=== PATIENT | female | born 1960 | race African-American/Black ===

== ENCOUNTER 2017-04-24 22:49 | Observation (INO) | payer MEDICARE ==
[~2017-04-24] VITALS: Ht 165.1 cm; Wt 100.0 kg
[~2017-04-24 22:49] MED LIST: ASPI-147 PO; BUPR150XL PO; CARV6.252 PO; CETI10 PO; DEPA500T3 PO; DICL75TA PO; DIOV160T6 PO; FLUT50SP EACH NARE; FURO1TAB62 PO; GABA100C4 PO; GLIP5 PO; LANTUS2P SQ; METF1000 PO; VENTAER INH; ZOCO40TA PO; [UNRECOGNIZED DRUG - CODE]
[2017-04-24 22:59] VITALS: BP 201/99; PULSE 106; RESP 20; O2SAT 100; O2SAT 98
[2017-04-24] MEDS ORDERED: SODIUM CHLORIDE 0.9% FLUSH 10 ML FLUSH IVF PRN (23:00)
[2017-04-24] MEDS ORDERED: RESP: ALBUTEROL 2.5 MG/IPRATROPIUM 0.5 MG NEB (SCH) NEB ONE (23:00)
--- NOTE | 2017-04-24 23:06 | PD ---
HPI Chief Complaint: dyspnea Time Seen by Provider: 22:59 Travel History International Travel<30 days: No Contact w/Intl Traveler<30days: No Traveled to known affect area: No History of Present Illness HPI 56-year-old female presents to the emergency department by EMS transport for evaluation of respiratory worsening shortness of breath and diaphoresis. Patient with history of COPD and CHF. No report of fever or chills. Patient has had congested cough. Patient symptomatically improved after updraft treatment and CPAP applied by EMS en route. Patient continues to complain of some shortness of breath. Patient states has sharp chest pain only with cough otherwise no chest pain and no chest discomfort. No abdominal pain. PFSH Past Medical History Narrative Medical Bipolar disorder anxiety depression dyslipidemia COPD diabetes CHF hypertension schizophrenia cholecystectomy no tobacco use no alcohol use nursing notes reviewed Asthma: No Blood Disorders: No Bipolar Disorder: Yes Anxiety: Yes Depression: Yes Heart Rhythm Problems: No Cancer: No Cardiovascular Problems: No High Cholesterol: Yes Chemotherapy: No Chest Pain: No Congestive Heart Failure: No COPD: Yes Diabetes: Yes Diminished Hearing: No Endocrine: Yes GERD: Yes Genitourinary: No Hypertension: Yes Immune Disorder: No Musculoskeletal: Yes (BILATERAL KNEES ACHE) Neurologic: No Psychiatric: Yes (SCHIZOPHRENIA) Reproductive: No Respiratory: Yes Immunizations Current: No Radiation Therapy: No Schizophrenia: Yes Sleep Apnea: No Thyroid Disease: No Menopausal: Yes Tubal Ligation: Yes Past Surgical History Abdominal Surgery: Yes Cholecystectomy: Yes Gynecologic Surgery: Yes (tubal ligation ) Social History Alcohol Use: No Tobacco Use: No (QUIT 5 DAYS AGO) Substance Use: No Allergies-Medications (Allergen,Severity, Reaction): Coded Allergies: No Known Allergies (Verified , 04/24/17) Reported Meds & Prescriptions Reported Meds & Active Scripts Active Cetirizine (Cetirizine HCl) 10 Mg Tab 10 Mg PO DAILY Carvedilol 6.25 Mg Tab 6.25 Mg PO BID Lasix (Furosemide) 20 Mg Tab 20 Mg PO DAILY Diclofenac Sodium DR (Diclofenac Sodium) 75 Mg Tabdr 75 Mg PO BID Glucotrol (Glipizide) 5 Mg Tab 5 Mg PO BIDAC Take 30 minutes before a meal Gabapentin 100 Mg Cap 100 Mg PO HS Ecotrin Low Strength (Aspirin) 81 Mg Tabdr 81 Mg PO DAILY Zocor (Simvastatin) 40 Mg Tab 40 Mg PO DAILY Diovan (Valsartan) 160 Mg Tab 160 Mg PO DAILY Metformin (Metformin HCl) 1,000 Mg Tab 1,000 Mg PO BIDPC With meals Ventolin Hfa 18 GM Inh (Albuterol Sulfate) 90 Mcg/Act Aer 2 Puff INH Q4H PRN Reported Wellbutrin Xl 24 HR (Bupropion HCl) Unknown Strength Tab Unknown Dose PO DAILY Depakote ER (Divalproex Sodium) 500 Mg Heather 500 Mg PO DAILY Fluticasone Nasal Amonate 50 Mcg/Act Naspr 50 Mcg EACH NARE BID 50 mcg/spray Review of Systems Except as stated in HPI: all other systems reviewed are Neg General / Constitutional: No: Fever, Chills HENT: No: Congestion Cardiovascular: No: Chest Pain or Discomfort Respiratory: Positive: Cough (with cough), Shortness of Breath, Wheezing, No: Pleuritic Pain Gastrointestinal: No: Nausea, Vomiting, Abdominal Pain Musculoskeletal: No: Myalgias, Arthralgias Skin: No Rash Neurologic: No: Weakness Psychiatric: No: Anxiety Hematologic/Lymphatic: No: Easy Bruising Physical Exam Narrative GENERAL: Well-developed obese female diaphoretic with BiPAP in place with residual respiratory distress. SKIN: Warm and mildly diaphoretic. HEAD: Normocephalic. EYES: No scleral icterus. No injection or drainage. NECK: Supple, trachea midline. No JVD or lymphadenopathy. CARDIOVASCULAR: Regular rate and rhythm without murmurs, gallops, or rubs. RESPIRATORY: Breath sounds equal bilaterally clear to auscultation. No accessory muscle use. GASTROINTESTINAL: Abdomen soft, non-tender, nondistended. MUSCULOSKELETAL: No cyanosis, or edema. BACK: Nontender without obvious deformity. No CVA tenderness. Data Data Last Documented VS Vital Signs Date Time Temp Pulse Resp B/P (MAP) Pulse Ox O2 Delivery O2 Flow Rate FiO2 04/25/17 02:00 91 18 173/87 (115) 98 Nasal Cannula 2.00 04/25/17 01:00 50 Orders Orders Complete Blood Count With Diff (04/24/17 22:59) Comprehensive Metabolic Panel (04/24/17 22:59) B-Type Natriuretic Peptide (04/24/17 22:59) Act Partial Throm Time (Ptt) (04/24/17 22:59) Prothrombin Time / Inr (Pt) (04/24/17 22:59) Magnesium (Mg) (04/24/17 22:59) Ckmb (Isoenzyme) Profile (04/24/17 22:59) Troponin I (04/24/17 22:59) Urinalysis - C+S If Indicated (04/24/17 22:59) Blood Culture (04/24/17 22:59) Iv Access Insert/Monitor (04/24/17 22:59) Electrocardiogram (04/24/17 22:59) Ecg Monitoring (04/24/17 22:59) Oximetry (04/24/17 22:59) Oxygen Administration (04/24/17 22:59) Chest, Single Ap (04/24/17 22:59) Sodium Chloride 0.9% Flush (Ns Flush) (04/24/17 23:00) Albuterol-Ipratropium Neb (Duoneb Neb) (04/24/17 23:00) Resp Bipap / Cpap Non Invas Vt (04/24/17 ) Labs Laboratory Tests Test 04/24/17 23:15 White Blood Count 9.8 TH/MM3 Red Blood Count 4.28 MIL/MM3 Hemoglobin 13.3 GM/DL Hematocrit 40.2 % Mean Corpuscular Volume 93.8 FL Mean Corpuscular Hemoglobin 31.1 PG Mean Corpuscular Hemoglobin Concent 33.1 % Red Cell Distribution Width 14.0 % Platelet Count 235 TH/MM3 Mean Platelet Volume 8.4 FL Neutrophils (%) (Auto) 79.2 % Lymphocytes (%) (Auto) 13.8 % Monocytes (%) (Auto) 4.6 % Eosinophils (%) (Auto) 0.7 % Basophils (%) (Auto) 1.7 % Neutrophils # (Auto) 7.8 TH/MM3 Lymphocytes # (Auto) 1.4 TH/MM3 Monocytes # (Auto) 0.4 TH/MM3 Eosinophils # (Auto) 0.1 TH/MM3 Basophils # (Auto) 0.2 TH/MM3 CBC Comment AUTO DIFF Differential Total Cells Counted 100 Neutrophils % (Manual) 61 % Band Neutrophils % 8 % Lymphocytes % 22 % Monocytes % 9 % Neutrophils # (Manual) 6.8 TH/MM3 Differential Comment FINAL DIFF MANUAL Platelet Estimate NORMAL Platelet Morphology Comment NORMAL Red Cell Morphology Comment NORMAL Prothrombin Time 11.3 SEC Prothromb Time International Ratio 1.0 RATIO Activated Partial Thromboplast Time 23.6 SEC Blood Urea Nitrogen 8 MG/DL Creatinine 0.98 MG/DL Random Glucose 339 MG/DL Total Protein 7.8 GM/DL Albumin 3.4 GM/DL Calcium Level 8.9 MG/DL Magnesium Level 1.4 MG/DL Alkaline Phosphatase 90 U/L Aspartate Amino Transf (AST/SGOT) 40 U/L Alanine Aminotransferase (ALT/SGPT) 44 U/L Total Bilirubin 0.5 MG/DL Sodium Level 139 MEQ/L Potassium Level 4.3 MEQ/L Chloride Level 101 MEQ/L Carbon Dioxide Level 28.7 MEQ/L Anion Gap 9 MEQ/L Estimat Glomerular Filtration Rate 71 ML/MIN Total Creatine Kinase 88 U/L Troponin I LESS THAN 0.02 NG/ML B-Type Natriuretic Peptide 228 PG/ML [facility] Medical Decision Making Medical Screen Exam Complete: Yes Emergency Medical Condition: Yes Medical Record Reviewed: Yes Interpretation(s) EKG sinus tachycardia rate [address] elevation or injury pattern change or ectopy noted Differential Diagnosis Dyspnea, CHF, COPD, ACS, pneumonia, PE Narrative Course patient placed on lunchroom monitor with pulse oximetry patient changed from CPAP to BiPAP 12 over 5 and 50% patient given additional DuoNeb updraft lung sounds clear to auscultation although diminished no Rales Patient given additional updraft resting comfortably Labs resulted Cardiac enzymes within normal range mild elevation of BNP 200 no failure on exam or by chest x-ray BiPAP discontinued placed on nasal cannula Patient clinically improved we'll put into observation for exacerbation of COPD , possible early bronchitis; patient will be continued on her daily dose of Lasix 20 mg Diagnosis Primary Impression: COPD (chronic obstructive pulmonary disease) Additional Impression: Bronchitis Chica Michaels MD Apr 24, 2017 23:06
[2017-04-24 23:28] LABS: AUTOMATED NEUTROPHIL # 7.8 TH/MM3 (1.8-7.7); BASOPHIL # 0.2 TH/MM3 (0-0.2); BASOPHIL % 1.7 % (0.0-2.0); EOSINOPHIL # 0.1 TH/MM3 (0-0.4); EOSINOPHIL % 0.7 % (0.0-4.0); HEMATOCRIT 40.2 % (35.0-46.0); LYMPH % 13.8 % (9.0-44.0); LYMPHOCYTE # 1.4 TH/MM3 (1.0-4.8); MEAN CELL VOLUME 93.8 FL (80.0-100.0); MEAN CORPUSCULAR HEMOGLOBIN 31.1 PG (27.0-34.0); MEAN CORPUSCULAR HGB CONC 33.1 % (32.0-36.0); MONO % 4.6 % (0.0-8.0); NEUT % 79.2 % (16.0-70.0); PLATELET COUNT 235 TH/MM3 (150-450); RED BLOOD COUNT 4.28 MIL/MM3 (4.00-5.30); WHITE BLOOD COUNT 9.8 TH/MM3 (4.0-11.0)
[2017-04-24 23:31] LABS: HEMO FLAGS AUTO DIFF
[2017-04-24 23:43] LABS: ALT (GPT) 44 U/L (10-53)
[2017-04-24 23:49] LABS: ALKALINE PHOSPHATASE 90 U/L (45-117); ANION GAP 9 MEQ/L (5-15); AST (GOT) 40 U/L (15-37); BICARBONATE 28.7 MEQ/L (21.0-32.0); BLOOD UREA NITROGEN 8 MG/DL (7-18); CHLORIDE 101 MEQ/L (98-107); CREATINE KINASE 88 U/L (26-192); GLOMERULAR FILTRATION RATE 71 ML/MIN (>89); MAGNESIUM 1.4 MG/DL (1.5-2.5); POTASSIUM 4.3 MEQ/L (3.5-5.1); SODIUM (NA) 139 MEQ/L (136-145); TOTAL BILIRUBIN ADULT 0.5 MG/DL (0.2-1.0)
[2017-04-24 23:56] LABS: APTT (PATIENT) 23.6 SEC (24.3-30.1); PROTHROMBIN TIME - PATIENT 11.3 SEC (9.8-11.6)
[2017-04-25] VITALS: BP 165/70; PULSE 98; RESP 20; O2SAT 100
--- NOTE | 2017-04-25 00:07 | RADRPT ---
EXAM DATE/TIME: 04/24/2017 23:32 [facility] COMPARISON: CHEST SINGLE AP, March 27, 2014, 8:16. INDICATIONS : Shortness of breath MEDICAL HISTORY : None. SURGICAL HISTORY : None. ENCOUNTER: Initial ACUITY: 1 day PAIN SCORE: Non-responsive. LOCATION: Bilateral chest FINDINGS: A single view of the chest demonstrates the lungs to be symmetrically aerated without evidence of mas s, infiltrate or effusion. The cardiomediastinal contours are unremarkable. Osseous structures are intact. CONCLUSION: No evidence of acute cardiopulmonary disease. Noé Sloan MD on April 25, 2017 at 0:05 Board Certified Radiologist. This report was verified electronically.
[2017-04-25 01:00] VITALS: BP 184/84; PULSE 92; RESP 16; O2SAT 100
[2017-04-25 01:50] LABS: BANDS 8 % (0-6); NEUTROPHIL # MANUAL DIFF 6.8 TH/MM3 (1.8-7.7); PLATELET ESTIMATE SMEAR NORMAL (NORMAL); PLATELET MORPHOLOGY NORMAL (NORMAL); POLYS (SEG NEUTROPHILS) 61 % (16-70); SCAN/DIFF FINAL DIFF MANUAL; WBC DIFF SAMPLE 100
[2017-04-25 02:00] VITALS: BP 173/87; PULSE 91; RESP 18; O2SAT 98
[2017-04-25] MEDS ORDERED: FUROSEMIDE 20 MG/2 ML VIAL IV PUSH ONE (03:00)
[2017-04-25] MEDS ORDERED: AZITHROMYCIN INJ 500 MG in SODIUM CHLOR 0.9% 250 ML INJ 250 ML IV ONE (03:00)
[2017-04-25] MEDS ORDERED: cefTRIAXone INJ 1,000 MG in SODIUM CHLORIDE 0.9% INJ 100 ML IV ONE (03:00)
[2017-04-25 03:10] LABS: BLOOD, URINE NEG (NEG); GLUCOSE,URINE 1000 mg/dL (NEG); HYALINE CAST, URINE 1 /lpf (RARE); KETONE, URINE 10 mg/dL (NEG); NITRITE,URINE NEG (NEG); PH, URINE 5.5 (5.0-8.5); SQUAMOUS EPITHELIAL CELL URINE 3 /hpf (0-5); URINE COLOR YELLOW (YELLW/STRAW)
[2017-04-25 03:14] LABS: COMMENT (UR) CULT NOT INDICATED; CULTURE IF INDICATED CULT NOT INDICATED
[2017-04-25] MEDS ORDERED: DEXTROSE 50% IN WATER 50 ML VIAL(D50) IV PUSH PRN (03:30)
[2017-04-25] MEDS ORDERED: RESP: ALBUTEROL 2.5 MG/IPRATROPIUM 0.5 MG NEB (PRN) NEB (03:30)
[2017-04-25] MEDS ORDERED: BISACODYL 10 MG SUPP RECTAL PRN ×2 (03:30→04:45)
[2017-04-25] MEDS ORDERED: LACTULOSE SYRUP 20 GM/30 ML CUP PO PRN ×2 (03:30→04:45)
[2017-04-25] MEDS ORDERED: ACETAMINOPHEN/HYDROcodone 325 MG/5 MG TAB PO PRN ×2 (03:30→05:00)
[2017-04-25] MEDS ORDERED: ONDANSETRON HCL 4 MG/2 ML VIAL IVP PRN ×2 (03:30→04:45)
[2017-04-25] MEDS ORDERED: MAGNESIUM HYDROXIDE SUSP 30 ML CUP PO PRN ×2 (03:30→04:45)
[2017-04-25] MEDS ORDERED: ACETAMINOPHEN 325 MG TAB PO PRN ×3 (03:30→05:00)
[2017-04-25] MEDS ORDERED: SENNOSIDES 8.6 MG TAB PO PRN ×2 (03:30→04:45)
[2017-04-25] MEDS ORDERED: ACETAMINOPHEN/HYDROcodone 325 MG/10 MG TAB PO PRN ×2 (03:30→05:00)
[2017-04-25] MEDS ORDERED: SODIUM CHLORIDE 0.9% FLUSH 10 ML FLUSH IV FLUSH PRN ×2 (03:30→04:45)
[2017-04-25] MEDS ORDERED: GLUCAGON 1 MG/ML VIAL OTHER PRN (03:30)
--- NOTE | 2017-04-25 04:22 | HHI.HP ---
[facility] Service [facility] Dr. Mcneil, attending Primary Care Physician Yury Dean MD, R3, Admission Diagnosis Diagnoses: International Travel<30 Days: No Contact w/Intl Traveler<30days: No History of Present Illness Patient is a 56 year old female is a significant for hypertension, IDDM, and GERD who presents with a 2 day history of worsening shortness of breath symptoms. She states that her stomach and had had felt "clogged up." She states that she thought she couldn't breathe due to upper respiratory congestion. She endorses cough, productive sounding but nonproductive of sputum. She endorses feeling diaphoretic with subjective fevers. She does have home O2 which she uses every other day at 2 L rate. She also uses a CPAP at home "as needed" and states she has used in the last 2 nights. She does not know why she needs home O2 or CPAP. She denies any sick contacts. She endorses pleuritic chest pain and shortness of breath. She has not had any recent antibiotics side of the ED today: She received 1 dose of Rocephin and azithromycin. CXR showing no acute changes. EKG ordered. Basic labs ordered as well showing no evidence of acute infection (no leukocytosis, no left shift). Urine significant for elevated glucose and ketones , otherwise negative. BNP mildly elevated at 228. Initial troponin less than 0.02. Review of Systems Constitutional: COMPLAINS OF: Diaphoretic episodes, Change in appetite ( deccreased), DENIES: Fever, Chills Endocrine: DENIES: Abnorml menstrual pattern Eyes: DENIES: Blurred vision, Diplopia, Eye pain Ears, nose, mouth, throat: COMPLAINS OF: Nasal discharge, Running Nose, Toothache (back right molars), DENIES: Tinnitus, Hearing loss, Throat pain, Hoarseness, Ear Pain, Odynophagia Respiratory: COMPLAINS OF: Cough, Sputum production, Shortness of breath, DENIES: Hemoptysis Cardiovascular: COMPLAINS OF: Chest pain (pleuritic), DENIES: Palpitations, Syncope, Lower Extremity Edema Gastrointestinal: COMPLAINS OF: Abdominal pain (chronic), Bloody stools, Diarrhea, DENIES: Black stools, Constipation, Nausea, Vomiting Musculoskeletal: DENIES: Joint pain, Muscle aches Integumentary: DENIES: Pruritus, Rash Hematologic/lymphatic: DENIES: Bruising, Lymphadenopathy Neurologic: DENIES: Headache, Poor Balance Psychiatric: DENIES: Anxiety, Depression Past Family Social History Past Medical History PMH: HTN, Back Pain, GERD, Abdominal bloating, Bipolar Surgery: cholecystectomy in the Social: Smokes 10 cigarettes a day, no etoh, no drugs HM: colonoscopy- 2003, declines future colonoscopy, reporting that she can not drink the bowel prep ASA-yes Pap-over 3 years ago, overdue Mammo- up to date, repeat 11/2016 [address] providers [address]. Santos-[facility] DM Disease Management A1C: 9.6 09/2015; 9.6 (11/02/16) Meds: Glipizide, Metformin, Lantus 24 U hs Glucometer: Fasting glucose 140-160s but decreased for the past 2 weeks less than 100 as she has decreased appetite. ACEi: No, on ARB (Valsartan 160 mg po daily) Lipid panel: T chol 162, trig 130, hdl 40, ldl 96 (11/02/16) Statin: Simvastatin 40 mg po daily GFR: 101 Microalbumin: wnl (11/02/16) Neuropathy: yes, on Gabapentin 100 mg po hs Reported Medications REFUSES TO REVIEW MEDS Reported Meds & Active Scripts Active Cetirizine (Cetirizine HCl) 10 Mg Tab 10 Mg PO DAILY Carvedilol 6.25 Mg Tab 6.25 Mg PO BID Lasix (Furosemide) 20 Mg Tab 20 Mg PO DAILY Diclofenac Sodium DR (Diclofenac Sodium) 75 Mg Tabdr 75 Mg PO BID Glucotrol (Glipizide) 5 Mg Tab 5 Mg PO BIDAC Take 30 minutes before a meal Gabapentin 100 Mg Cap 100 Mg PO HS Lantus Inj (Insulin Glargine) 1,000 Unit/10 Ml Vial 24 Units SQ HS Ecotrin Low Strength (Aspirin) 81 Mg Tabdr 81 Mg PO DAILY Zocor (Simvastatin) 40 Mg Tab 40 Mg PO DAILY Diovan (Valsartan) 160 Mg Tab 160 Mg PO DAILY Metformin (Metformin HCl) 1,000 Mg Tab 1,000 Mg PO BIDPC With meals Ventolin Hfa 18 GM Inh (Albuterol Sulfate) 90 Mcg/Act Aer 2 Puff INH Q4H PRN Reported Wellbutrin Xl 24 HR (Bupropion HCl) Unknown Strength Tab Unknown Dose PO DAILY Depakote ER (Divalproex Sodium) 500 Mg Heather 500 Mg PO DAILY Fluticasone Nasal [place] 50 Mcg/Act Naspr 50 Mcg EACH NARE BID 50 mcg/spray Allergies: Coded Allergies: No Known Allergies (Verified , 04/24/17) Active Ordered Medications Inpatient Medications Acetaminophen (Tylenol) 650 mg Q6H PRN PO PAIN SCALE 1 TO 2; Start 04/25/17 at 05:00 Acetaminophen/ Hydrocodone Bitart ([place] 5-325 Mg) 1 tab Q4H PRN PO PAIN SCALE 3 TO 5; Start 04/25/17 at 05:00 Acetaminophen/ Hydrocodone Bitart ([place] 10-325 Mg) 1 tab Q4H PRN PO PAIN SCALE 6 TO 10; Start 04/25/17 at 05:00 Albuterol Sulfate (Albuterol Neb) 2.5 mg Q4HR NEB PRN INH SHORTNESS OF BREATH; Start 04/25/17 at 04:45 Albuterol/ Ipratropium (Duoneb Neb) 1 ampule Q4HR NEB INH ; Start 04/25/17 at 08:00 Aspirin (Aspirin Chew) 81 mg DAILY PO ; Start 04/25/17 at 09:00 Aspirin (Ecotrin Ec) 81 mg DAILY PO ; Start 04/25/17 at 09:00; Stop 04/25/17 at 09:00; Status DC Azithromycin (Zithromax) 500 mg Taper Q24H PO ; Start 04/26/17 at 05:00; Stop 05/01/17 at 04:59 Azithromycin 500 mg/Sodium Chloride 250 ml @ 250 mls/hr ONCE ONCE IV Last administered on 04/25/17t 04:16; Start 04/25/17 at 03:00; Stop 04/25/17 at 03:59 ; Status DC Bisacodyl (Dulcolax Supp) 10 mg DAILY PRN RECTAL SEVERE CONSITIPATION; Start 04/25/17 at 04:45 Budesonide/ Formoterol Fumarate (Symbicort 160-4.5 Inh) 2 puff Q12HR INH ; Start 04/25/17 at 09:00 Carvedilol (Coreg) 6.25 mg Q12HR PO ; Start 04/25/17 at 09:00 Ceftriaxone Sodium 1000 mg/ Sodium Chloride 100 ml @ 200 mls/hr Q24H IV ; Start 04/26/17 at 05:00 Cetirizine HCl (ZyrTEC) 10 mg DAILY PO ; Start 04/25/17 at 09:00 Dextrose (D50w (Vial) Inj) 50 ml UNSCH PRN IV PUSH HYPOGLYCEMIA-SEE COMMENTS; Start 04/25/17 at 03:30; Stop 04/25/17 at 04:04; Status DC Divalproex Sodium (Depakote Er) 500 mg DAILY PO ; Start 04/25/17 at 09:00 Furosemide (Lasix Inj) 20 mg ONCE ONCE IV PUSH Last administered on 04/25/17t 03:14; Start 04/25/17 at 03:00; Stop 04/25/17 at 03:01; Status DC Furosemide (Lasix) 20 mg DAILY PO ; Start 04/25/17 at 09:00 Gabapentin (Neurontin) 100 mg HS PO ; Start 04/25/17 at 21:00 Glipizide (Glucotrol) 5 mg BIDAC PO ; Start 04/25/17 at 07:00; Stop 04/25/17 at 07:00; Status DC Glucagon (Glucagon Inj) 1 mg UNSCH PRN OTHER HYPOGLYCEMIA-SEE COMMENTS; Start 04/25/17 at 03:30; Stop 04/25/17 at 04:04; Status DC Heparin Sodium (Porcine) (Heparin Inj) 5,000 units Q12H SQ ; Start 04/25/17 at 04:45 Insulin Aspart (NovoLOG SUPPLEMENTAL SCALE) 1 ACHS SLIDING SCALE SQ ; Start at 08:00 Insulin Detemir (Levemir Inj) 20 units HS SQ ; Start 04/25/17 at 21:00 Lactulose (Lactulose Liq) 30 ml DAILY PRN PO SEVERE CONSITIPATION; Start at 04:45 Levofloxacin/ Dextrose 150 ml @ 100 mls/hr Q24H IV ; Start 04/26/17 at 06:00; Stop 04/26/17 at 06:00; Status DC Magnesium Hydroxide (Milk Of Magnesia Liq) 30 ml Q12H PRN PO MILD - MODERATE CONSTIPATION; Start 04/25/17 at 04:45 Magnesium Sulfate/ Dextrose 100 ml @ 100 mls/hr ONCE ONCE IV ; Start 04/25/17 at 06:00; Stop 04/25/17 at 06:00; Status DC Methylprednisolone Sodium Succinate (SoluMEDROL INJ) 60 mg Q6H IV PUSH ; Start 04/25/17 at 05:00 Naloxone HCl (Narcan Inj) 0.4 mg UNSCH PRN IV PUSH SEE LABEL COMMENTS; Start 04/25/17 at 05:00 Ondansetron HCl (Zofran Inj) 4 mg Q6H PRN IVP NAUSEA OR VOMITING; Start at 04:45 Pravastatin Sodium (Pravachol) 80 mg HS PO ; Start 04/25/17 at 21:00 Senna/Docusate Sodium (Aggie-Colace) 1 tab BID PO ; Start 04/25/17 at 09:00 Sennosides (Senokot) 17.2 mg Q12H PRN PO MODERATE - SEVERE CONSTIPATION; Start 04/25/17 at 04:45 Sodium Chloride (NS Flush) 2 ml BID IV FLUSH ; Start 04/25/17 at 09:00 Valsartan (Diovan) 160 mg DAILY PO ; Start 04/25/17 at 09:00 Zolpidem Tartrate (Ambien) 5 mg HS PRN PO INSOMNIA; Start 04/25/17 at 04:45 Family History Declines discussion today Social History Declines discussion today Physical Exam Vital Signs Vital Signs Date Time Temp Pulse Resp B/P (MAP) Pulse Ox O2 Delivery O2 Flow Rate FiO2 04/25/17 02:00 91 18 173/87 (115) 98 Nasal Cannula 2.00 04/25/17 01:00 92 16 184/84 (117) 100 CPAP 50 04/25/17 00:00 98 20 165/70 (101) 100 CPAP 50 04/24/17 23:03 100 CPAP 50 04/24/17 23:03 106 20 100 CPAP 50 04/24/17 22:59 106 20 201/99 (133) 100 04/24/17 22:59 98 50 Physical Exam GENERAL: Patient is an obese female lying in bed in no acute distress. She is wearing nasal cannula. SKIN: Warm and dry. No obvious rashes or ecchymoses. HEAD: Atraumatic. Normocephalic. EYES: PERRL. EOMI. There is some mild periocular irritation and excessive tear production. No scleral icterus. No injection or drainage. ENT: No nasal bleeding or discharge. Mucous membranes pink and moist. Uvula midline, tonsils without erythema or exudate. NECK: Trachea midline. No JVD. No cervical chain lymphadenopathy. CARDIOVASCULAR: Regular rate and rhythm. There is a systolic ejection murmur noted especially at RUSB. 2+ pulses in the distal extremities bilaterally. RESPIRATORY: No accessory muscle use. Clear to auscultation without crackles or rhonchi. No wheezes. Equal chest rise bilaterally GASTROINTESTINAL: Abdomen soft, obese, nontender, bowel sounds normal in all 4 quadrants. Unable to palpate liver or spleen margin. MUSCULOSKELETAL: Extremities without clubbing, cyanosis, or edema. No obvious deformities. No lower extremity edema. NEUROLOGICAL: Awake and alert. Cranial nerves II through XII intact. Motor grossly within normal limits. Grossly normal strength. Slowed speech but may be her baseline. PSYCHIATRIC: Appropriate mood and affect; insight and judgment normal. She has tangential speech. No suicidal or homicidal ideation. Laboratory Laboratory Tests Test 04/24/17 23:15 04/25/17 02:00 White Blood Count 9.8 Red Blood Count 4.28 Hemoglobin 13.3 Hematocrit 40.2 Mean Corpuscular Volume 93.8 Mean Corpuscular Hemoglobin 31.1 Mean Corpuscular Hemoglobin Concent 33.1 Red Cell Distribution Width 14.0 Platelet Count 235 Mean Platelet Volume 8.4 Neutrophils (%) (Auto) 79.2 Lymphocytes (%) (Auto) 13.8 Monocytes (%) (Auto) 4.6 Eosinophils (%) (Auto) 0.7 Basophils (%) (Auto) 1.7 Neutrophils # (Auto) 7.8 Lymphocytes # (Auto) 1.4 Monocytes # (Auto) 0.4 Eosinophils # (Auto) 0.1 Basophils # (Auto) 0.2 CBC Comment AUTO DIFF Differential Total Cells Counted 100 Neutrophils % (Manual) 61 Band Neutrophils % 8 Lymphocytes % 22 Monocytes % 9 Neutrophils # (Manual) 6.8 Differential Comment FINAL DIFF MANUAL Platelet Estimate NORMAL Platelet Morphology Comment NORMAL Red Cell Morphology Comment NORMAL Prothrombin Time 11.3 Prothromb Time International Ratio 1.0 Activated Partial Thromboplast Time 23.6 Blood Urea Nitrogen 8 Creatinine 0.98 Random Glucose 339 Total Protein 7.8 Albumin 3.4 Calcium Level 8.9 Magnesium Level 1.4 Alkaline Phosphatase 90 Aspartate Amino Transf (AST/SGOT) 40 Alanine Aminotransferase (ALT/SGPT) 44 Total Bilirubin 0.5 Sodium Level 139 Potassium Level 4.3 Chloride Level 101 Carbon Dioxide Level 28.7 Anion Gap 9 Estimat Glomerular Filtration Rate 71 Total Creatine Kinase 88 Troponin I LESS THAN 0.02 B-Type Natriuretic Peptide 228 Urine Color YELLOW Urine Turbidity CLEAR Urine pH 5.5 Urine Specific [place] 1.033 Urine Protein TRACE Urine Glucose (UA) 1000 Urine Ketones 10 Urine Occult Blood NEG Urine Nitrite NEG Urine Bilirubin NEG Urine Urobilinogen LESS THAN 2.0 Urine Leukocyte Esterase NEG Urine RBC LESS THAN 1 Urine WBC 1 Urine Squamous Epithelial Cells 3 Urine Hyaline Casts 1 Microscopic Urinalysis Comment CULT NOT INDICATED Date/Time Source Procedure Growth Status 04/24/17 23:15 Blood Peripheral Aerobic Blood Culture Pending Received 04/24/17 23:15 Blood Peripheral Anaerobic Blood Culture Pending Received Result Diagram: 04/24/17 2315 04/24/17 2315 Imaging CXR 04/24/17: no acute disease Caprini VTE Risk Assessment Caprini VTE Risk Assessment: Mod/High Risk (score >= 2) Caprini Risk Assessment Model Point Value = 1 Point Value = 2 Point Value = 3 Point Value = 5 Age 41-60 Minor surgery BMI > 25 kg/m2 Swollen legs Varicose veins or History of unexplained or recurrent spontaneous Oral contraceptives or hormone replacement Sepsis (< 1 month) Serious lung disease, including pneumonia (< 1 month) Abnormal pulmonary function Acute myocardial infarction Congestive heart failure (< 1 month) History of inflammatory bowel disease Medical patient at bed rest Age 61-74 Arthroscopic surgery Major open surgery (> 45 min) Laparoscopic surgery (> 45 min) Malignancy Confined to bed (> 72 hours) Immobilizing plaster cast Central venous access Age >= 75 History of VTE Family history of VTE Factor V Leiden Prothrombin [id number] Lupus anticoagulant Anticardiolipin antibodies Elevated serum homocysteine Heparin-induced thrombocytopenia Other congenital or acquired thrombophilia Stroke (< 1 month) Elective arthroplasty Hip, pelvis, or leg fracture Acute spinal cord injury (< 1 month) Prophylaxis Regimen Total Risk Factor Score Risk Level Prophylaxis Regimen 0-1 Low Early ambulation 2 Moderate Order ONE of the following: *Sequential Compression Device (SCD) *Heparin 5000 units SQ BID 3-4 Higher Order ONE of the following medications: *Heparin 5000 units SQ TID *Enoxaparin/Lovenox 40 mg SQ daily (WT < 150 kg, CrCl > 30 mL/min) *Enoxaparin/Lovenox 30 mg SQ daily (WT < 150 kg, CrCl > 10-29 mL/min) *Enoxaparin/Lovenox 30 mg SQ BID (WT < 150 kg, CrCl > 30 mL/min) AND/OR *Sequential Compression Device (SCD) 5 or more Highest Order ONE of the following medications: *Heparin 5000 units SQ TID (Preferred with Epidurals) *Enoxaparin/Lovenox 40 mg SQ daily (WT < 150 kg, CrCl > 30 mL/min) *Enoxaparin/Lovenox 30 mg SQ daily (WT < 150 kg, CrCl > 10-29 mL/min) *Enoxaparin/Lovenox 30 mg SQ BID (WT < 150 kg, CrCl > 30 mL/min) AND *Sequential Compression Device (SCD) Assessment and Plan Assessment and Plan 56-year-old female with mobile medical problems was admitted for workup and treatment of shortness of breath and hypoxia, with differential including acute bronchitis versus CAP. Patient is status post 1 dose of Rocephin and azithromycin in the ED. There is no leukocytosis or SIRS criteria met. She is also status post Lasix 20 mg IV 1 CAP/acute bronchitis/respiratory distress * Over course of the ED workup, patient received CPAP and BiPAP support, now on nasal cannula. * Continue nasal cannula, titrate to goal O2 sat greater than 92% * DuoNeb's every 4 hours scheduled * Albuterol every 4 hours when necessary * Continue Rocephin and azithromycin until symptomatic improvement * Obtain sputum culture, Legionella, pneumococcal antigen, flu studies * We'll order Mucinex * Solu-Medrol 60 mg IV every 6 hours Diabetes, insulin dependent * Last A1c 9.6, indicating poor control * Patient is on glargine 24 units at night, sliding scale which she cannot recount * Place patient on Levemir 20 units at night, sliding scale with low dose NovoLog * Accu-Cheks per protocol * Hyperglycemia protocol as indicated * Diabetic diet Hypertension, chronic, essential * Continue home medications * We will PRN antihypertensive if indicated CHF, chronic * History of present illness is limited in the EMR, so it is unknown if this is diastolic versus systolic CHF * Patient is status post Lasix 20 mg 1 in ED with symptomatic improvement * BNP not markedly elevated * Continue Lasix as indicated GERD * Per EMR, will monitor symptoms and a PPI or other medications if indicated Back pain, chronic * Tylenol, [place] pain scale ordered Bipolar disorder * Sees a psychiatrist as outpatient * Per med rec, patient may be on Depakote but she refused to review medications with me today * Hold Depakote as inpatient, continue to monitor mood Fluids/Electrolytes/Nutrition/Prophylaxis * Fluids: tolerating PO/NS @ 100ml/hr * Electrolytes: monitor and replete as needed * Nutrition: ADA * DVT Prophylaxis: Early ambulation. Heparin 5000U subQ [id number] SCDs * GI Prophylaxis: none indicated Code Status Full code Discussed Condition With Will discuss with Dr. Mehta, R3 and Dr. Mcneil, attending Madison Holder MD R2 Apr 25, 2017 04:22
[2017-04-25] MEDS ORDERED: SODIUM CHLOR 0.9% 1000 ML INJ 1,000 ML IV SCH (04:39)
[2017-04-25] MEDS ORDERED: ZOLPIDEM TARTRATE 5 MG TAB PO PRN (04:45)
[2017-04-25] MEDS ORDERED: NALOXONE HCL 0.4 MG/ML AMP IV PUSH PRN ×2 (04:45→05:00)
[2017-04-25] MEDS ORDERED: RESP: ALBUTEROL 2.5 MG/3 ML NEB (PRN) INH (04:45)
[2017-04-25] MEDS ORDERED: HEPARIN SODIUM - SQ 10,000 UNITS/ML VIAL SQ SCH (04:45)
[2017-04-25] MEDS ORDERED: SODIUM CHLORIDE 0.9% FLUSH 10 ML FLUSH IVF PRN (04:45)
[2017-04-25] MEDS ORDERED: methylPREDNISolone SOD SUCC 125 MG/2 ML VIAL IV PUSH SCH (05:00)
--- NOTE | 2017-04-25 05:40 | PD.AMA ---
Against Medical Advice Note Diagnosis: (1) Shortness of breath (2) Bronchitis Discharge Disposition: Against Medical Advice Pt Condition on Discharge: Stable AMA Statement Patient Meli Garcia has decided to leave the hospital against medical advice. This patient has the capacity to refuse care and understands the risks of leaving, including permanent disability and/or , and has had an opportunity to ask questions about her condition. The patient has been informed that she may return for care at any time, and follow up has been arranged/ advised. Madison Holder MD R2 Apr 25, 2017 05:40
[2017-04-25] MEDS ORDERED: MAGNESIUM SULFATE 1 GM PREMIX 100 ML IV ONE (06:00)
[2017-04-25] MEDS ORDERED: methylPREDNISolone SOD SUCC 40 MG/1 ML VIAL IV PUSH SCH (06:00)
[2017-04-25] MEDS ORDERED: glipiZIDE 5 MG TAB PO SCH (07:00)
[2017-04-25] MEDS ORDERED: INSULIN ASPART SUPPLEMENTAL SCALE SQ SCH ×2 (08:00)
[2017-04-25] MEDS ORDERED: RESP: ALBUTEROL 2.5 MG/IPRATROPIUM 0.5 MG NEB (SCH) INH (08:00)
[2017-04-25] MEDS ORDERED: RESP: ALBUTEROL 2.5 MG/IPRATROPIUM 0.5 MG NEB (SCH) NEB (08:00)
[2017-04-25] MEDS ORDERED: CARVEDILOL 6.25 MG TAB PO SCH ×2 (09:00)
[2017-04-25] MEDS ORDERED: ASPIRIN 81 MG CHEW TAB PO SCH (09:00)
[2017-04-25] MEDS ORDERED: BUDESONIDE-FORMOTEROL 160/4.5 MCG INHALER INH SCH ×2 (09:00)
[2017-04-25] MEDS ORDERED: ASPIRIN EC 81 MG TABEC PO SCH (09:00)
[2017-04-25] MEDS ORDERED: SODIUM CHLORIDE 0.9% FLUSH 10 ML FLUSH IV FLUSH SCH ×3 (09:00)
[2017-04-25] MEDS ORDERED: PRAVASTATIN SOD 40 MG TAB PO SCH (09:00)
[2017-04-25] MEDS ORDERED: DIVALPROEX SODIUM E.R. 500 MG TAB PO SCH ×2 (09:00)
[2017-04-25] MEDS ORDERED: VALSARTAN 160 MG TAB PO SCH ×2 (09:00)
[2017-04-25] MEDS ORDERED: DOCUSATE SODIUM 50 MG/SENNA 8.6 MG TAB PO SCH ×2 (09:00)
[2017-04-25] MEDS ORDERED: FUROSEMIDE 20 MG TAB PO SCH ×2 (09:00)
[2017-04-25] MEDS ORDERED: CETIRIZINE HCL 10 MG TAB PO SCH (09:00)
--- NOTE | 2017-04-25 19:27 | EKG ---
Date Performed: 04/24/2017 Time Performed: 23:03:40 PTAGE: 56 years EKG: SINUS TACHYCARDIA NONSPECIFIC T-WAVE ABNORMALITY ABNORMAL RHYTHM ECG PREVIOUS TRACING : 03/23/2014 23.26 Compared to prior tracing no significant change DOCTOR: Toby Condon Interpretating Date/Time 04/25/2017 19:25:29
[2017-04-25] MEDS ORDERED: INSULIN DETEMIR 100 UNITS/ML VIAL SQ SCH ×2 (21:00)
[2017-04-25] MEDS ORDERED: PRAVASTATIN SOD 80 MG TAB PO SCH (21:00)
[2017-04-25] MEDS ORDERED: GABAPENTIN 100 MG CAP PO SCH ×2 (21:00)
[2017-04-26] MEDS ORDERED: cefTRIAXone INJ 1,000 MG in SODIUM CHLORIDE 0.9% INJ 100 ML IV SCH (05:00)
[2017-04-26] MEDS ORDERED: AZITHROMYCIN 250 MG TAB PO SCH (05:00)
[2017-04-26] MEDS ORDERED: LEVOFLOXACIN 750 MG PREMIX INJ 150 ML IV SCH (06:00)
[2017-04-29] MEDS ORDERED: VENTAER INH (08:58)
[2017-04-29] MEDS ORDERED: SYMB160A INH (08:59)
[2017-04-29] MEDS ORDERED: TIOT12.9 INH (09:11)
[2017-05-02] MEDS ORDERED: IPRA17I INH (15:50)
== END 2017-04-25 05:15 | disposition left against medical advice (07) ==
LOC: NEPC 22:49 → NEDA 04-25 04:34
PROVIDERS: ADMIT Family Medicine; ATTEND Family Medicine
DX: J44.9 Chronic obstructive pulmonary disease, unspecified (principal); R61 Generalized hyperhidrosis; F31.9 Bipolar disorder, unspecified; E78.00 Pure hypercholesterolemia, unspecified; K21.9 Gastro-esophageal reflux disease without esophagitis; E11.9 Type 2 diabetes mellitus without complications; I10 Essential (primary) hypertension; F20.9 Schizophrenia, unspecified; F17.210 Nicotine dependence, cigarettes, uncomplicated; Z79.899 Other long term (current) drug therapy; Z79.4 Long term (current) use of insulin; G89.29 Other chronic pain; M54.9 Dorsalgia, unspecified; R94.31 Abnormal electrocardiogram [ECG] [EKG]
CPT/HCPCS: 71010; 80053; 81001; 82550; 83735; 83880; 84484; 85007; 85027; 85610; 85730; 87040; 87449; 93005; 94002; 94664; 96365; 96375; 96376; 99285; G0378; J0456; J0696; J1940; J7050

== ENCOUNTER 2017-05-06 21:14 | Inpatient (IN) | payer MEDICARE ==
[~2017-05-06] VITALS: Ht 172.7 cm; Wt 89.5 kg
[~2017-05-06 21:14] MED LIST changes: +IPRA17I INH; -[UNRECOGNIZED DRUG - CODE]
[2017-05-06 21:15] VITALS: O2SAT 93
[2017-05-06 21:30] VITALS: BP 185/99; PULSE 105; RESP 16; TEMP 98.8; O2SAT 90
[2017-05-06] MEDS ORDERED: SODIUM CHLOR 0.9% 1000 ML INJ 1,000 ML IV ONE (21:30)
[2017-05-06 21:32] VITALS: O2SAT 97
[2017-05-06 21:40] LABS: BLOOD GAS BASE EXCESS -4.4 mmol/L (-2-2); BLOOD GAS CARBOXYHEMOGLOBIN 5.2 % (0-4); BLOOD GAS HCO3 21 mmol/L (22-26); BLOOD GAS METHEMOGLOBIN 0.4 % (0-2); BLOOD GAS O2 HGB SATURATION 94 % (90-100); BLOOD GAS OXYGEN CONTENT 15.5 Vol % (12.0-20.0); BLOOD GAS PCO2 47 mmHg (38-42); BLOOD GAS PO2 346 mmHG (61-120); CRITICAL VALUE YES; TEMP CORR TO 98.6
[2017-05-06 21:41] LABS: DRAW SITE LT RADIAL; FIO2 100 %; LITER FLOW 15 L/M; NUMBER OF ARTERIAL PUNCTURES 2; OXYGEN DEVICE AMBU; STAT YES; ULNAR PULSE PRESENT
--- NOTE | 2017-05-06 21:45 | PD ---
HPI Chief Complaint: Code Blue Time Seen by Provider: 21:22 Travel History International Travel<30 days: No Contact w/Intl Traveler<30days: No Traveled to known affect area: No History of Present Illness HPI 56-year-old female was brought in by EMS in cardiopulmonary arrest. Patient has history of COPD, diabetes, hypertension, depression, hyperlipidemia. Patient is a smoker. Patient called EMS today complaining of shortness of breath. When EMS arrived, patient was found to be unresponsive. Patient was found to be in PEA. Patient was intubated with Combitube. IO was started. Patient was given several doses of epinephrine IV. Patient regained pulse and lost pulse on the way to ED. Chest compression was given when patient lost pulse. Patient arrived to ED without pulse and in PEA. PFSH Past Medical History Medical History: Unable to Obtain Asthma: No Blood Disorders: No Bipolar Disorder: Yes Anxiety: Yes Depression: Yes Heart Rhythm Problems: No Cancer: No Cardiovascular Problems: No High Cholesterol: Yes Chemotherapy: No Chest Pain: No Congestive Heart Failure: No COPD: Yes Diabetes: Yes Patient Takes Glucophage: No (UNABLE TO OBTAIN ) Diminished Hearing: No Endocrine: Yes Gastrointestinal Disorders: Yes GERD: Yes Genitourinary: No Hypertension: Yes Immune Disorder: No Implanted Vascular Access Dvce: No Musculoskeletal: Yes (BILATERAL KNEES ACHE) Neurologic: No Psychiatric: Yes (SCHIZOPHRENIA) Reproductive: No Respiratory: Yes Immunizations Current: No Radiation Therapy: No Schizophrenia: Yes Sleep Apnea: No Thyroid Disease: No Tetanus Vaccination: Unknown ?: Unknown Menopausal: Yes Tubal Ligation: Yes Past Surgical History Surgical History: Unable to Obtain Abdominal Surgery: Yes Cholecystectomy: Yes Gynecologic Surgery: Yes (tubal ligation ) Social History Alcohol Use: No Tobacco Use: Yes (1ppd) Substance Use: No Allergies-Medications (Allergen,Severity, Reaction): Coded Allergies: No Known Allergies (Verified , 05/06/17) Reported Meds & Prescriptions Reported Meds & Active Scripts Active Atrovent HFA 12.9 GM Inh (Ipratropium [place]) 17 Mcg/Actuation Aer 2 Puff INH Q6HR PRN Ventolin Hfa 18 GM Inh (Albuterol Sulfate) 90 Mcg/Act Aer 2 Puff INH Q4H PRN Cetirizine (Cetirizine HCl) 10 Mg Tab 10 Mg PO DAILY Carvedilol 6.25 Mg Tab 6.25 Mg PO BID Lasix (Furosemide) 20 Mg Tab 20 Mg PO DAILY Diclofenac Sodium DR (Diclofenac Sodium) 75 Mg Tabdr 75 Mg PO BID Glucotrol (Glipizide) 5 Mg Tab 5 Mg PO BIDAC Take 30 minutes before a meal Gabapentin 100 Mg Cap 100 Mg PO HS Lantus Inj (Insulin Glargine) 1,000 Unit/10 Ml Vial 24 Units SQ HS Ecotrin Low Strength (Aspirin) 81 Mg Tabdr 81 Mg PO DAILY Zocor (Simvastatin) 40 Mg Tab 40 Mg PO DAILY Diovan (Valsartan) 160 Mg Tab 160 Mg PO DAILY Metformin (Metformin HCl) 1,000 Mg Tab 1,000 Mg PO BIDPC With meals Reported Wellbutrin Xl 24 HR (Bupropion HCl) Unknown Strength Tab Unknown Dose PO DAILY Depakote ER (Divalproex Sodium) 500 Mg [place] 500 Mg PO DAILY Fluticasone Nasal [place] 50 Mcg/Act Naspr 50 Mcg EACH NARE BID 50 mcg/spray Review of Systems ROS Limitations: Intubated, Unresponsive Physical Exam Narrative GENERAL: Well-nourished, well-developed patient. SKIN: Focused skin assessment warm/dry. HEAD: Normocephalic. EYES: No scleral icterus. No injection or drainage. NECK: Supple, trachea midline. No JVD or lymphadenopathy. CARDIOVASCULAR: No cardiac activity RESPIRATORY: Patient's intubated GASTROINTESTINAL: Abdomen distended. MUSCULOSKELETAL: No cyanosis, or edema. BACK: No obvious deformity. Neurologic exam: Patient's intubated. Data Data Last Documented VS Vital Signs Date Time Temp Pulse Resp B/P (MAP) Pulse Ox O2 Delivery O2 Flow Rate FiO2 05/06/17 22:51 95 97/63 05/06/17 22:41 99.3 16 97 Auto-Vent 80 Orders Orders Propofol 1000 Mg/100 Ml Inj (Diprivan 10 (05/06/17 21:30) ^ Infusion (05/06/17 21:22) RASS (05/06/17 21:22) Neurological Rass Scale JOSE.Q2H (05/06/17 21:22) Neurological Rass Scale Q30MX2,Q2HX4,Q4H (05/06/17 21:22) Fentanyl Drip (Fentanyl Drip) (05/06/17 21:30) Sodium Chlor 0.9% 1000 Ml Inj (Ns 1000 M (05/06/17 21:30) Electrocardiogram (05/06/17:) Complete Blood Count With Diff (05/06/17:) Comprehensive Metabolic Panel (05/06/17) Creatine Kinase (Cpk) (05/06/17:) Troponin I (05/06/17) B-Type Natriuretic Peptide (05/06/17) Prothrombin Time / Inr (Pt) (05/06/17) Act Partial Throm Time (Ptt) (05/06/17) Arterial Blood Gas (Abg) (05/06/17) Blood Culture (05/06/17) Urinalysis - C+S If Indicated (05/06/17) Magnesium (Mg) (05/06/17) Thyroid Stimulating Hormone (05/06/17) Phosphorus (Po4) (05/06/17) Chest, Single Ap (05/06/17:) Ct Brain W/O Iv Contrast(Rout) (05/06/17:) Iv Access Insert/Monitor (05/06/17) Ecg Monitoring (05/06/17) Oximetry (05/06/17:) Lactic Acid (05/06/17) Norepinephrine-Dextrose Drip (Levophed-D (05/06/17 22:45) Terbutaline Inj (Brethine Inj) (05/06/17 22:45) Lactic Acid Sepsis Protocol (05/06/17 22:39) Urinary Catheter Insert/Apply (05/06/17 22:40) Patrick-Gastric Tube Insert/Mon (05/06/17 22:40) Restraints Non-Violent JOSE.Q3H (05/06/17 22:40) Chest, Single Ap (05/06/17 22:42) Urine Culture (05/06/17:35) Labs Laboratory Tests Test 05/06/17 21:25 05/06/17:35 Blood Gas Puncture Site LT RADIAL Blood Gas Patient Temperature 98.6 Blood Gas HCO3 21 mmol/L Blood Gas Base Excess -4.4 mmol/L Blood Gas Oxygen Saturation 94 % Arterial Blood pH 7.28 Arterial Blood Partial Pressure CO2 47 mmHg Arterial Blood Partial Pressure O2 346 mmHG Arterial Blood Oxygen Content 15.5 Vol % Arterial Blood Carboxyhemoglobin 5.2 % Arterial Blood Methemoglobin 0.4 % Blood Gas Hemoglobin 11.0 G/DL Oxygen Delivery Device AMBU Blood Gas Liter Flow 15 L/M Blood Gas Inspired Oxygen 100 % White Blood Count 10.0 TH/MM3 Red Blood Count 3.87 MIL/MM3 Hemoglobin 11.8 GM/DL Hematocrit 37.3 % Mean Corpuscular Volume 96.6 FL Mean Corpuscular Hemoglobin 30.4 PG Mean Corpuscular Hemoglobin Concent 31.5 % Red Cell Distribution Width 14.1 % Platelet Count 168 TH/MM3 Mean Platelet Volume 9.7 FL Neutrophils (%) (Auto) 43.4 % Lymphocytes (%) (Auto) 49.9 % Monocytes (%) (Auto) 4.8 % Eosinophils (%) (Auto) 1.2 % Basophils (%) (Auto) 0.7 % Neutrophils # (Auto) 4.3 TH/MM3 Lymphocytes # (Auto) 5.0 TH/MM3 Monocytes # (Auto) 0.5 TH/MM3 Eosinophils # (Auto) 0.1 TH/MM3 Basophils # (Auto) 0.1 TH/MM3 CBC Comment DIFF FINAL Differential Comment Prothrombin Time 12.7 SEC Prothromb Time International Ratio 1.1 RATIO Activated Partial Thromboplast Time 22.9 SEC Urine Color YELLOW Urine Turbidity CLOUDY Urine pH 6.5 Urine Specific [place] 1.023 Urine Protein GREATER THAN 600 mg/dL Urine Glucose (UA) 1000 mg/dL Urine Ketones 10 mg/dL Urine Occult Blood SMALL Urine Nitrite NEG Urine Bilirubin NEG Urine Urobilinogen LESS THAN 2.0 MG/DL Urine Leukocyte Esterase NEG Urine RBC 19 /hpf Urine WBC 13 /hpf Urine Squamous Epithelial Cells 1 /hpf Urine Amorphous Sediment OCC Urine Bacteria MOD /hpf Urine Hyaline Casts 26 /lpf Urine Mucus FEW /lpf Microscopic Urinalysis Comment CULTURE INDICATED Blood Urea Nitrogen 15 MG/DL Creatinine 1.57 MG/DL Random Glucose 392 MG/DL Albumin 2.7 GM/DL Calcium Level 8.5 MG/DL Magnesium Level 1.6 MG/DL Aspartate Amino Transf (AST/SGOT) 107 U/L Alanine Aminotransferase (ALT/SGPT) 127 U/L Sodium Level 139 MEQ/L Potassium Level 4.5 MEQ/L Chloride Level 102 MEQ/L Carbon Dioxide Level 25.4 MEQ/L Anion Gap 12 MEQ/L Estimat Glomerular Filtration Rate 41 ML/MIN MDM Medical Decision Making Medical Screen Exam Complete: Yes Emergency Medical Condition: Yes Differential Diagnosis Differential diagnosis including respiratory arrest, cardiac arrest, acute exacerbation COPD, PE, pneumothorax, sepsis. Narrative Course 56-year-old female with history COPD hypertension CHF came in by EMS in cardiopulmonary arrest. Patient was given chest compressions and epinephrine on the way. Combitube was removed. Patient was intubated with ET tube by me. Patient was given chest compressions and epinephrine IV. Patient began pulse and blood pressure. Normal saline solution 100 cc an hour. Patient was connected to a ventilator. Propofol and fentanyl drip for sedation. Critical Care Narrative Aggregate critical care time was 60 minutes. Time to perform other separately billable procedures was not included in the critical care time. My time did not include minutes spent treating any other patients simultaneously or on activities that did not directly contribute to the patient's treatment. The services I provided to this patient were to treat and/or prevent clinically significant deterioration that could result in: I provided critical care services requiring my management, as noted below: Chart data review, documentation time, medication orders and management, vital sign assessments/reviewing monitor data, ordering and reviewing lab tests, ordering and interpreting/reviewing x-rays and diagnostic studies, care of the patient and discussion of the patient with the admitting physicians. Procedures Procedure Narrative After the risks and benefits were discussed the following procedure was performed: INTUBATION: The patient was intubated with a 7.5 cuffed endotracheal tube. Tube placement was confirmed by visualization of the tube and balloon passing through the cords, capnometry and subsequent chest x-ray. Breath sounds were equal and well aerated bilaterally postintubation. No breath sounds over stomach. Patient tolerated procedure well. Diagnosis Primary Impression: Cardiopulmonary arrest Additional Impression: UTI (urinary tract infection) Jadon Morrison MD May 06, 2017 21:45
[2017-05-06] MEDS: PROPOFOL 1000 MG/100 ML INJ 100 ML IV PRN (21:46)
[2017-05-06 22:11] VITALS: BP 86/53; PULSE 90; RESP 16; TEMP 99.1; O2SAT 89
[2017-05-06 22:17] VITALS: BP 72/41; PULSE 88; RESP 16; O2SAT 100
[2017-05-06 22:31] LABS: AUTOMATED NEUTROPHIL # 4.3 TH/MM3 (1.8-7.7); BASOPHIL # 0.1 TH/MM3 (0-0.2); BASOPHIL % 0.7 % (0.0-2.0); EOSINOPHIL # 0.1 TH/MM3 (0-0.4); EOSINOPHIL % 1.2 % (0.0-4.0); HEMATOCRIT 37.3 % (35.0-46.0); HEMO FLAGS DIFF FINAL; LYMPH % 49.9 % (9.0-44.0); MEAN CELL VOLUME 96.6 FL (80.0-100.0); MEAN CORPUSCULAR HEMOGLOBIN 30.4 PG (27.0-34.0); MEAN CORPUSCULAR HGB CONC 31.5 % (32.0-36.0); MONO % 4.8 % (0.0-8.0); NEUT % 43.4 % (16.0-70.0); PLATELET COUNT 168 TH/MM3 (150-450); RED BLOOD COUNT 3.87 MIL/MM3 (4.00-5.30); RED CELL DISTRIBUTION WIDTH 14.1 % (11.6-17.2)
--- NOTE | 2017-05-06 22:36 | RADRPT ---
EXAM DATE/TIME: 05/06/2017 22:10 [facility] COMPARISON: CHEST SINGLE AP, April 24, 2017, 23:32. INDICATIONS : Status post intubation. MEDICAL HISTORY : None. SURGICAL HISTORY : None. ENCOUNTER: Initial ACUITY: 1 day PAIN SCORE: Non-responsive. LOCATION: chest FINDINGS: The patient is intubated with the tip of the ET tube in the right mainstem bronchus. This should be p ulled back 4-5 cm. The heart size is normal. The patient is rotated towards the left. There is increa sed density seen throughout the right hemithorax. Some ascites secondary to the rotation. Some degree of atelectasis or consolidation in the right lung also needs to be considered. There is NG tube in p lace. CONCLUSION: 1. ET tube in right mainstem bronchus. This should be pulled back 4-5 cm. 2. Increased density seen throughout the right lung related to the rotation versus atelectasis or con solidation.nm Noé Ybarra MD on May 06, 2017 at 22:32 Board Certified Radiologist. This report was verified electronically.
[2017-05-06 22:41] VITALS: BP 96/66; PULSE 85; RESP 16; TEMP 99.3; O2SAT 97
[2017-05-06 22:41] LABS: BACTERIA, URINE MOD /hpf; BLOOD, URINE SMALL (NEG); COMMENT (UR) CULTURE INDICATED; CULTURE IF INDICATED CULTURE INDICATED; GLUCOSE,URINE 1000 mg/dL (NEG); HYALINE CAST, URINE 26 /lpf (RARE); KETONE, URINE 10 mg/dL (NEG); MUCUS URINE FEW /lpf (OCC); NITRITE,URINE NEG (NEG); PH, URINE 6.5 (5.0-8.5); SQUAMOUS EPITHELIAL CELL URINE 1 /hpf (0-5); URINE COLOR YELLOW (YELLW/STRAW)
[2017-05-06] MEDS ORDERED: NOREPINEPHRINE-DEXTROSE DRIP 250 ML IV PRN (22:45)
[2017-05-06] MEDS ORDERED: TERBUTALINE INJ 1 MG/ML AMP SQ PRN (22:45)
[2017-05-06 22:52] LABS: APTT (PATIENT) 22.9 SEC (24.3-30.1); INTERNATIONAL NORMALIZED RATIO 1.1 RATIO; PROTHROMBIN TIME - PATIENT 12.7 SEC (9.8-11.6)
[2017-05-06 22:55] LABS: ALT (GPT) 127 U/L (10-53); ANION GAP 12 MEQ/L (5-15); AST (GOT) 107 U/L (15-37); BICARBONATE 25.4 MEQ/L (21.0-32.0); BLOOD UREA NITROGEN 15 MG/DL (7-18); CHLORIDE 102 MEQ/L (98-107); GLOMERULAR FILTRATION RATE 41 ML/MIN (>89); MAGNESIUM 1.6 MG/DL (1.5-2.5); POTASSIUM 4.5 MEQ/L (3.5-5.1); SODIUM (NA) 139 MEQ/L (136-145)
[2017-05-06] MEDS ORDERED: VANCOMYCIN INJ 1,000 MG in SODIUM CHLOR 0.9% 250 ML INJ 250 ML IV ONE (23:00)
[2017-05-06] MEDS ORDERED: PIPERACIL-TAZO 3.375 GM PREMIX 50 ML IV ONE (23:00)
--- NOTE | 2017-05-06 23:00 | RADRPT ---
EXAM DATE/TIME: 05/06/2017 22:49 [facility] COMPARISON: CHEST SINGLE AP, May 06, 2017, 22:10. INDICATIONS : ET tube repositioned. MEDICAL HISTORY : None. SURGICAL HISTORY : None. ENCOUNTER: Subsequent ACUITY: 1 day PAIN SCORE: Non-responsive. LOCATION: chest FINDINGS: The ET tube is less than a centimeter from the jayson. It is now in the distal trachea. The heart siz e is normal. There is an increased density at the left base, silhouetting the left hemidiaphragm. The right lung appears grossly clear. The patient is less rotated on the current exam. There is an NG tu be in place. CONCLUSION: 1. ET tube in the distal trachea just barely above the jayson. 2. Left base atelectasis or consolidation. Noé Ybarra MD on May 06, 2017 at 22:57 Board Certified Radiologist. This report was verified electronically.
[2017-05-06 23:10] LABS: ALKALINE PHOSPHATASE 104 U/L (45-117); CREATINE KINASE 105 U/L (26-192); TOTAL BILIRUBIN ADULT 0.5 MG/DL (0.2-1.0)
[2017-05-06] MEDS ORDERED: SENNOSIDES 8.6 MG TAB PO PRN (23:30)
[2017-05-06] MEDS ORDERED: ONDANSETRON HCL 4 MG/2 ML VIAL IV PUSH PRN (23:30)
[2017-05-06] MEDS ORDERED: LACTULOSE SYRUP 20 GM/30 ML CUP PO PRN (23:30)
[2017-05-06] MEDS ORDERED: MAGNESIUM HYDROXIDE SUSP 30 ML CUP PO PRN (23:30)
[2017-05-06] MEDS ORDERED: SODIUM CHLORIDE 0.9% FLUSH 10 ML FLUSH IV FLUSH PRN (23:30)
[2017-05-06] MEDS ORDERED: MISCELLANEOUS NURSING INFORMATION XX SCH (23:30)
[2017-05-06] MEDS ORDERED: BISACODYL 10 MG SUPP RECTAL PRN (23:30)
[2017-05-06] MEDS ORDERED: CHLORHEXIDINE GLUCONATE 2 % 1 PACK (2 CLOTHS) TOP PRN (23:30)
--- NOTE | 2017-05-06 23:46 | HHI.HP ---
HPI Service Critical Care Medicine Primary Care Physician Unknown Admission Diagnosis cardiopulmonary arrest. UTI. Diagnosis: Travel History International Travel<30 Days: No Contact w/Intl Traveler <30 Da: No Traveled to Known Affected Are: No History of Present Illness 56-year-old female with past medical history of hypertension, chronic systolic heart failure, diabetes, COPD bipolar disorder, seizure disorder who presented to [facility] emergency department via [facility] following cardiac arrest. [facility] was originally called for shortness of breath and when they arrived patient was unresponsive and in PEA. Combitube was placed. CPR was initiated and patient was administered epinephrine 4, 1 amp bicarbonate, Narcan 2 mg prior to arrival via left tibial I/O. Blood glucose was 334. Exact duration of prehospital CPR is unclear. Combitube was removed and she was intubated upon arrival. Patient had ROSC 5 minutes after arrival. She received additional epinephrine 2 in the ED. She also received 1 L normal saline bolus, vancomycin, Zosyn in the ED. Critical care medicine is consulted for admission. EKG has no acute ischemia. Past Family Social History Allergies: Coded Allergies: No Known Allergies (Verified , 05/06/17) Past Medical History COPD Diabetes Hypertension Chronic systolic heart failure with an ejection fraction of 15-20% GERD Bipolar disorder Hyperlipidemia Allergic rhinitis Peripheral neuropathy Past Surgical History Cholecystectomy Bilateral tubal ligation Cardiac catheterization 03/27/14 - EF 15-20%. 10-20% LAD lesion, 20% ostial stenosis of the left main, 20% OM, 30-40% RCA. Reported Medications Cetirizine 10 mill grams by mouth daily Atrovent 2 puffs inhaled every 6 hours as needed for shortness of breath Albuterol 2 puffs inhaled every 4 hours as needed Zocor 40 mill grams by mouth daily Carvedilol 6.25 mill grams by mouth twice a day Diovan 160 mill grams by mouth daily Aspirin 81 mg by mouth daily Diclofenac 75 mill grams by mouth to twice a day Depakote ER 500 mg by mouth daily Gabapentin 100 mg by mouth daily at bedtime Wellbutrin XL unknown strength daily Lasix 20 mg by mouth daily Fluticasone 50 g in each nares twice a day Metformin 1000 g by mouth twice a day Lantus Glipizide 5 mill grams by mouth twice a day Family History Unable to obtain from patient due to clinical condition. Social History Unable to obtain directly from patient due to clinical condition EMR reviewed and she reportedly smokes a pack of cigarettes per day PAtient is not . Her daughter Cheyanne lives in [place] and is an only child. Cheyanne says the only family that lives locally is a brother and she feels Meli wouldn't want him to visit. Physical Exam Vital Signs Vital Signs Date Time Temp Pulse Resp B/P (MAP) Pulse Ox O2 Delivery O2 Flow Rate FiO2 05/06/17 22:51 95 97/63 05/06/17 22:41 99.3 85 16 96/66 (76) 97 Auto-Vent 80 05/06/17 22:17 88 16 72/41 (51) 100 Auto-Vent 80 05/06/17 22:11 99.1 90 16 86/53 (64) 89 Auto-Vent 100 05/06/17 21:32 97 Auto-Vent 05/06/17 21:30 98.8 105 16 185/99 (127) 90 Ventilator 100 05/06/17 21:24 20 96 Bag Valve 05/06/17 21:17 100 05/06/17 21:15 93 100 Physical Exam Drips: Levophed 5 mcg/m Propofol 50 mcg per KG per minute Temps 99.3 pulse 77, sinus on the monitor blood pressure 90/56 sats 95% on mechanical ventilation with FiO2 60% GENERAL: Obese female who or intubated. SKIN: Warm and dry. HEAD: Atraumatic. Normocephalic. EYES: Bilateral exophthalmus. Pupils equal and round, pinpoint and sluggishly reactive bilaterally. No scleral icterus. No injection or drainage. ENT: No nasal bleeding or discharge. Mucous membranes pink and moist. NECK: Trachea midline. No JVD appreciated. No meningismus CARDIOVASCULAR: Regular rate and rhythm, sinus rhythm on the monitor with rate in the 70s. No murmurs rubs or gallops. RESPIRATORY: Orotracheally intubated on mechanical ventilation ACV tidal volume 550/rate 16/P5/FiO2 60%. Not overbreathing the vent. No evidence of air trapping. Breath sounds are equal bilaterally without wheezes Rales or rhonchi. GASTROINTESTINAL: Abdomen protuberant and obese but overall soft. No appreciable tenderness rebound or guarding. Bowel sounds are present. : Benoit catheter is in place with 20 cc of light gary urine in the catheter. MUSCULOSKELETAL: Extremities without clubbing, cyanosis, or edema. No obvious deformities. NEUROLOGICAL: In the ED with propofol on hold: Eyelids flutter open to deep noxious stimuli, does not track or make eye contact. No eye deviation. She has intermittent jerking type movements of all extremities off sedation, extensor posturing BUE, no motor response in BLE. No clonus. Downgoing Babinski Laboratory Laboratory Tests Test 05/06/17 21:25 05/06/17 21:35 Blood Gas Puncture Site LT RADIAL Blood Gas Patient Temperature 98.6 Blood Gas HCO3 21 Blood Gas Base Excess -4.4 Blood Gas Oxygen Saturation 94 Arterial Blood pH 7.28 Arterial Blood Partial Pressure CO2 47 Arterial Blood Partial Pressure O2 346 Arterial Blood Oxygen Content 15.5 Arterial Blood Carboxyhemoglobin 5.2 Arterial Blood Methemoglobin 0.4 Blood Gas Hemoglobin 11.0 Oxygen Delivery Device AMBU Blood Gas Liter Flow 15 Blood Gas Inspired Oxygen 100 White Blood Count 10.0 Red Blood Count 3.87 Hemoglobin 11.8 Hematocrit 37.3 Mean Corpuscular Volume 96.6 Mean Corpuscular Hemoglobin 30.4 Mean Corpuscular Hemoglobin Concent 31.5 Red Cell Distribution Width 14.1 Platelet Count 168 Mean Platelet Volume 9.7 Neutrophils (%) (Auto) 43.4 Lymphocytes (%) (Auto) 49.9 Monocytes (%) (Auto) 4.8 Eosinophils (%) (Auto) 1.2 Basophils (%) (Auto) 0.7 Neutrophils # (Auto) 4.3 Lymphocytes # (Auto) 5.0 Monocytes # (Auto) 0.5 Eosinophils # (Auto) 0.1 Basophils # (Auto) 0.1 CBC Comment DIFF FINAL Differential Comment Prothrombin Time 12.7 Prothromb Time International Ratio 1.1 Activated Partial Thromboplast Time 22.9 Urine Color YELLOW Urine Turbidity CLOUDY Urine pH 6.5 Urine Specific [place] 1.023 Urine Protein GREATER THAN 600 Urine Glucose (UA) 1000 Urine Ketones 10 Urine Occult Blood SMALL Urine Nitrite NEG Urine Bilirubin NEG Urine Urobilinogen LESS THAN 2.0 Urine Leukocyte Esterase NEG Urine RBC 19 Urine WBC 13 Urine Squamous Epithelial Cells 1 Urine Amorphous Sediment OCC Urine Bacteria MOD Urine Hyaline Casts 26 Urine Mucus FEW Microscopic Urinalysis Comment CULTURE INDICATED Blood Urea Nitrogen 15 Creatinine 1.57 Random Glucose 392 Total Protein 6.5 Albumin 2.7 Calcium Level 8.5 Phosphorus Level 7.4 Magnesium Level 1.6 Alkaline Phosphatase 104 Aspartate Amino Transf (AST/SGOT) 107 Alanine Aminotransferase (ALT/SGPT) 127 Total Bilirubin 0.5 Sodium Level 139 Potassium Level 4.5 Chloride Level 102 Carbon Dioxide Level 25.4 Anion Gap 12 Estimat Glomerular Filtration Rate 41 Lactic Acid Level 9.7 Total Creatine Kinase 105 Troponin I LESS THAN 0.02 B-Type Natriuretic Peptide 331 Thyroid Stimulating Hormone 3rd Gen 4.630 Date/Time Source Procedure Growth Status 05/06/17 21:36 Blood Peripheral Aerobic Blood Culture Pending Received 05/06/17 21:36 Blood Peripheral Anaerobic Blood Culture Pending Received 05/06/17 21:35 Urine Clean Catch Urine Culture Pending Received Result Diagram: 05/06/17213405/06/[id number] Caprini VTE Risk Assessment Caprini VTE Risk Assessment: Mod/High Risk (score >= 2) Caprini Risk Assessment Model Point Value = 1 Point Value = 2 Point Value = 3 Point Value = 5 Age 41-60 Minor surgery BMI > 25 kg/m2 Swollen legs Varicose veins or History of unexplained or recurrent spontaneous Oral contraceptives or hormone replacement Sepsis (< 1 month) Serious lung disease, including pneumonia (< 1 month) Abnormal pulmonary function Acute myocardial infarction Congestive heart failure (< 1 month) History of inflammatory bowel disease Medical patient at bed rest Age 61-74 Arthroscopic surgery Major open surgery (> 45 min) Laparoscopic surgery (> 45 min) Malignancy Confined to bed (> 72 hours) Immobilizing plaster cast Central venous access Age >= 75 History of VTE Family history of VTE Factor V Leiden Prothrombin [id number] Lupus anticoagulant Anticardiolipin antibodies Elevated serum homocysteine Heparin-induced thrombocytopenia Other congenital or acquired thrombophilia Stroke (< 1 month) Elective arthroplasty Hip, pelvis, or leg fracture Acute spinal cord injury (< 1 month) Prophylaxis Regimen Total Risk Factor Score Risk Level Prophylaxis Regimen 0-1 Low Early ambulation 2 Moderate Order ONE of the following: *Sequential Compression Device (SCD) *Heparin 5000 units SQ BID 3-4 Higher Order ONE of the following medications: *Heparin 5000 units SQ TID *Enoxaparin/Lovenox 40 mg SQ daily (WT < 150 kg, CrCl > 30 mL/min) *Enoxaparin/Lovenox 30 mg SQ daily (WT < 150 kg, CrCl > 10-29 mL/min) *Enoxaparin/Lovenox 30 mg SQ BID (WT < 150 kg, CrCl > 30 mL/min) AND/OR *Sequential Compression Device (SCD) 5 or more Highest Order ONE of the following medications: *Heparin 5000 units SQ TID (Preferred with Epidurals) *Enoxaparin/Lovenox 40 mg SQ daily (WT < 150 kg, CrCl > 30 mL/min) *Enoxaparin/Lovenox 30 mg SQ daily (WT < 150 kg, CrCl > 10-29 mL/min) *Enoxaparin/Lovenox 30 mg SQ BID (WT < 150 kg, CrCl > 30 mL/min) AND *Sequential Compression Device (SCD) Assessment and Plan Problem List: (1) Chronic systolic heart failure ICD Code: I50.22 - Chronic systolic (congestive) heart failure Status: Chronic (2) Exophthalmos of both eyes ICD Code: H05.20 - Unspecified exophthalmos Status: Chronic (3) HTN (hypertension) ICD Code: I10 - Essential (primary) hypertension Status: Chronic (4) HLD (hyperlipidemia) ICD Code: E78.5 - Hyperlipidemia, unspecified Status: Chronic (5) Cardiogenic shock ICD Code: R57.0 - Cardiogenic shock Status: Acute (6) Acute respiratory failure with hypercapnia ICD Code: J96.02 - Acute respiratory failure with hypercapnia Status: Acute (7) Obesity (BMI 30-39.9) ICD Code: E66.9 - Obesity, unspecified Status: Chronic (8) CHF (congestive heart failure) ICD Code: I50.9 - CHF (congestive heart failure) Status: Acute (9) Bipolar disorder ICD Code: F31.9 - Bipolar affective disorder Status: Chronic (10) COPD (chronic obstructive pulmonary disease) ICD Code: J44.9 - Chronic obstructive pulmonary disease Status: Chronic (11) Tobacco abuse ICD Code: Z72.0 - Tobacco use Status: Chronic Assessment and Plan NEURO/PSYCH: Bipolar disorder Acute encephalopathy Obtained CT brain - negative Held sedation to assess neuro exam to allow for decision regarding induced therapeutic hypothermia. Patient with PEA arrest but no apparent contraindication to induced therapeutic hypothermia so will initiate now in effort to provide best possible neuro outcome. Daughter consented and placed heat exchange catheter Target temp 34 degrees x24 hours then rewarm 0.25 degrees C/hr. OBtained Depakote level. 48.Was on depakote for bipolar. Ammonia level increased , will hold depakote for now. Lactulose 30 daily. Repeat ammonia level. Check urine drug screen, APAP, ASA level. Carboxyhemoglobin level mildly elevated, may be secondary to tobacco abuse. Hold neurontin 100 day. , Hold Wellbutrin XL. Obtain EEG. Propofol for sedation/fentanyl for analgosedation. Versed bolus and drip if needed Nimbex for paralysis --> lacrilube bid. RESP: Acute hypercapnic respiratory failure COPD Tobacco abuse ACV tidal volume 550/rate 16/P5/F I/O to 60%. Ventilator bundle. Duoneb q6 hours. Albuterol q2 hours prn. Per ED physician patient was not wheezing on arrival and was not wheezing on my evaluation. CV: PEA cardiac arrest Post cardiac arrest syndrome with shock Chronic systolic heart failure with ejection fraction 15-20% Nonobstructive Coronary artery disease Essectial Hypertension Hyperlipidemia Hold home antihypertensives due to hypotension (carvedilol 6.25 mill grams by mouth twice a day, Diovan 160 mg by mouth daily ) Levophed to maintain mean arterial pressure greater than 65 Serial lactic acid. Artline placed for hemodynamic monitoring. EKG normal sinus rhythm rate of 99. No apparent acute ischemia. Follow-up serial EKGs and cardiac markers. Obtain 2-D echo Etiology of cardiac arrest unclear. ?? due to hypercapnea and respiratory acidosis - though her presentation was not remarkable for wheezing. Cardiology consult. Resumed ASA after head CT resulted. Holding statin due to elevated LFTs. No betablocker or obie-I due to hypotension. GI: GERD Transaminitis, probable ischemic hepatopathy. Orogastric tube to low intermittent and wall suction. Output is nonbloody, no coffee grounds. RUQ us FEN/RENAL: MARQUEZ Lactic acidemia Hyperphosphatemia Benoit in place. Monitor intake and output. Monitor electrolytes and replace as indicated. Hold home NSAID's. ID: UTI Received Zosyn and vancomycin in the emergency department. Urine and blood cultures have been sent. Will obtain sputum culture now. Continue Zosyn. HEME: No acute hematologic issues. ENDO: Diabetes mellitus with acute hyperglycemia Hold metformin, glipizide, lantus. Expect hyperglycemia to worsen during cooling. Insulin drip algorithm #2. Obtain thyroid studies PROPH: Will initiate pharmacologic DVT prophylaxis at CT brain is negative. Famotidine for stress ulcer prophylaxis and history of GERD ACCESS: Right femoral art line placed by ED physician 05/06/17 #1, remove now. L femoral heat exchange catheter and L femoral art line placed Next of kin is Cheyanne, her only daughter. She is not . Cheyanne lives in [place]. HAs been informed of risk of anoxic brain injury and discussed rationale for induced therapeutic hypothermia. Discussed with Dr. Morrison Critical care time 60 minutes exclusive of separately billable procedures. Full code Problem Qualifiers (1) HTN (hypertension): Qualified Codes: I10 - Essential (primary) hypertension Bella Brandt MD May 06, 2017 23:45
[2017-05-06] MEDS: SODIUM CHLOR 0.9% 1000 ML INJ 1,000 ML IV SCH (23:54)
[2017-05-07] VITALS (38 sets, daily range): BP systolic 89–190; BP diastolic 56–97; PULSE 52–87; RESP 16–17; TEMP 91.9–99.3; O2SAT 92–100
[2017-05-07] MEDS ORDERED: GLUCAGON 1 MG/ML VIAL OTHER PRN (00:30)
[2017-05-07] MEDS ORDERED: DEXTROSE 50% IN WATER 50 ML VIAL(D50) IV PUSH PRN ×2 (00:30→08:15)
[2017-05-07 00:49] LABS: ACETAMINOPHEN LESS THAN 2.0 MCG/ML (10.0-30.0)
[2017-05-07] MEDS: INSULIN ASPART SUPPLEMENTAL SCALE SQ SCH ×2 (00:59→05:00)
[2017-05-07 02:55] LABS: LACTIC ACID GHOST NOT REPORTABLE
[2017-05-07] MEDS ORDERED: IOHEXOL 350 MG/ML 10 ML VIAL (for RAD DIAG) IVCONTRAST ONE (03:40)
--- NOTE | 2017-05-07 03:54 | RADRPT ---
EXAM DATE/TIME: 05/07/2017 03:14 [facility] COMPARISON: No previous studies available for comparison. INDICATIONS : Altered mental status. RADIATION DOSE: 52.13 CTDIvol (mGy) MEDICAL HISTORY : Non-responsive. SURGICAL HISTORY : Non-responsive. ENCOUNTER: Initial ACUITY: 1 day PAIN SCALE: Non-responsive LOCATION: cranial TECHNIQUE: Multiple contiguous axial images were obtained of the head. Using automated exposure control and adj ustment of the mA and/or kV according to patient size, radiation dose was kept as low as reasonably a chievable to obtain optimal diagnostic quality images. DICOM format image data is available electro nically for review and comparison. FINDINGS: CEREBRUM: The ventricles are normal for age. No evidence of midline shift, mass lesion, hemorrhage or acute in farction. No extra-axial fluid collections are seen. POSTERIOR FOSSA: The cerebellum and brainstem are intact. The 4th ventricle is midline. The cerebellopontine angle i s unremarkable. EXTRACRANIAL: The visualized portion of the orbits is intact. SKULL: The calvaria is intact. No evidence of skull fracture. CONCLUSION: Normal examination. Noé Ybarra MD on May 07, 2017 at 3:52 Board Certified Radiologist. This report was verified electronically.
--- NOTE | 2017-05-07 03:57 | RADRPT ---
EXAM DATE/TIME: 05/07/2017 03:21 [facility] COMPARISON: No previous studies available for comparison. INDICATIONS : Post code; rule out pulmonary embolus. IV CONTRAST: 75 cc Omnipaque 350 (iohexol) IV RADIATION DOSE: 25.45 CTDIvol (mGy) MEDICAL HISTORY : Hypertension. Diabetes mellitus type 2. SURGICAL HISTORY : Cholecystectomy. ENCOUNTER: Initial ACUITY: 1 day PAIN SCALE: Non-responsive LOCATION: chest TECHNIQUE: Volumetric scanning of the chest was performed using a pulmonary embolism protocol MIP images were re constructed. Using automated exposure control and adjustment of the mA and/or kV according to patien t size, radiation dose was kept as low as reasonably achievable to obtain optimal diagnostic quality images. DICOM format image data is available electronically for review and comparison. Follow-up recommendations for detected pulmonary nodules are based at a minimum on nodule size and pa tient risk factors according to Fleischner Society Guidelines. FINDINGS: PULMONARY ARTERIES: No filling defects are seen in the pulmonary arteries through the segmental level. LUNGS: There is increased density at the posterior lower lobes bilaterally being more prominent left. PLEURAE: There are minimal bilateral pleural effusions. MEDIASTINUM: There is good visualization of the great vessels of the middle mediastinum. No evidence of mediastin al or hilar adenopathy/mass. There is a mild pericardial effusion. MUSCULOSKELETAL: Within normal limits for patient age. MISCELLANEOUS: The visualized upper abdominal organs demonstrate no acute abnormality. CONCLUSION: 1. No pulmonary embolus. 2. Bibasilar areas of consolidation or atelectasis being worse on the left. There are minimal bilater al pleural effusions. Noé Ybarra MD on May 07, 2017 at 3:53 Board Certified Radiologist. This report was verified electronically.
[2017-05-07] MEDS: CHLORHEXIDINE GLUCONATE 2 % 1 PACK (2 CLOTHS) TOP SCH (04:00)
[2017-05-07] MEDS ORDERED: SODIUM CHLOR 0.9% 1000 ML INJ 1,000 ML IV SCH (04:20)
[2017-05-07] MEDS ORDERED: SODIUM CHLORIDE 0.9% FLUSH 10 ML FLUSH IV FLUSH PRN (04:30)
[2017-05-07] MEDS ORDERED: CISATRACURIUM BESYLATE 20 MG/10 ML VIAL IV PUSH ONE (04:30)
[2017-05-07] MEDS ORDERED: LORazepam 2 MG/ML VIAL IV PUSH PRN (04:30)
[2017-05-07] MEDS ORDERED: MIDAZOLAM HCL 2 MG/2 ML VIAL IV PUSH ONE (04:30)
[2017-05-07] MEDS ORDERED: MIDAZOLAM HCL 2 MG/2 ML VIAL IV PUSH PRN (04:30)
[2017-05-07] MEDS: RESP: ALBUTEROL 2.5 MG/IPRATROPIUM 0.5 MG NEB (SCH) INH ×4 (04:30→20:18)
[2017-05-07 04:31] LABS: AUTOMATED NEUTROPHIL # 9.1 TH/MM3 (1.8-7.7); BASOPHIL # 0.1 TH/MM3 (0-0.2); BASOPHIL % 0.6 % (0.0-2.0); EOSINOPHIL % 0.1 % (0.0-4.0); HEMATOCRIT 35.9 % (35.0-46.0); HEMO FLAGS DIFF FINAL; LYMPH % 7.2 % (9.0-44.0); LYMPHOCYTE # 0.8 TH/MM3 (1.0-4.8); MEAN CELL VOLUME 93.8 FL (80.0-100.0); MEAN CORPUSCULAR HEMOGLOBIN 30.3 PG (27.0-34.0); MEAN CORPUSCULAR HGB CONC 32.3 % (32.0-36.0); MONO % 7.1 % (0.0-8.0); PLATELET COUNT 154 TH/MM3 (150-450); RED BLOOD COUNT 3.83 MIL/MM3 (4.00-5.30); RED CELL DISTRIBUTION WIDTH 13.6 % (11.6-17.2); WHITE BLOOD COUNT 10.7 TH/MM3 (4.0-11.0)
[2017-05-07] MEDS ORDERED: NOREPINEPHRINE 4 MG/4 ML AMP IV ONE (05:00)
[2017-05-07] MEDS ORDERED: EPINEPHrine HCL (1:10,000) 1 MG/10 ML SYRINGE IV ONE (05:00)
[2017-05-07] MEDS ORDERED: SODIUM BICARBONATE 8.4% INJ 50 MEQ/50 ML SYR IV ONE (05:00)
[2017-05-07 05:05] LABS: ALKALINE PHOSPHATASE 102 U/L (45-117); ALT (GPT) 135 U/L (10-53); ANION GAP 7 MEQ/L (5-15); AST (GOT) 90 U/L (15-37); BLOOD UREA NITROGEN 18 MG/DL (7-18); CHLORIDE 106 MEQ/L (98-107); CREATINE KINASE 100 U/L (26-192); GLOMERULAR FILTRATION RATE 45 ML/MIN (>89); MAGNESIUM 1.3 MG/DL (1.5-2.5); POTASSIUM 4.9 MEQ/L (3.5-5.1); SODIUM (NA) 140 MEQ/L (136-145); TOTAL BILIRUBIN ADULT 0.7 MG/DL (0.2-1.0)
--- NOTE | 2017-05-07 05:44 | PD.PROCEDR ---
Procedure Note Procedure DATE: Heat Exchange Catheter Placement: Right femoral vein. INDICATION: Induced therapeutic hypothermia. CONSENT Informed consent for procedure was obtained from patient's . DESCRIPTION OF THE PROCEDURE The patient was placed in supine position. The skin was cleansed with Chloraprep. Additional barrier precautions included large sterile drape, sterile gloves, sterile gown, face mask, and hat. 1 % lidocaine was used for local anesthesia. On a single attempt, the vein was accessed with an introducer needle. The guide wire was advanced and the tract was dilated. Using Seldinger technique a 9.3 [place] [employer] Hivel Quattro Heat Exchange catheter was advanced. The guide wire was removed. All ports had good return of dark venous blood and flushed easily with saline. The central line was secured with 2.0 silk. A sterile dressing with antibiotic disc was applied. ESTIMATED BLOOD LOSS: Minimal COMPLICATIONS: No apparent complications. Bella Brandt MD May 07, 2017 05:44
--- NOTE | 2017-05-07 05:45 | PD.PROCEDR ---
Procedure Note Procedure DATE: 05/07/17 PROCEDURE: Left femoral arterial catheter placement INDICATION: Hemodynamic monitoring DETAILS OF PROCEDURE The patient was placed in supine position. The skin was cleansed with Chloraprep. Additional barrier precautions included large sterile drape, sterile gloves, sterile gown, face mask, and hat. 1% lidocaine was used for local anesthesia. Under direct ultrasound guidance and on the first attempt, the artery was accessed with an introducer needle. The guide wire was advanced. Using Seldinger technique 16 gauge single lumen central line catheter was placed. The guide wire was removed. The catheter was connected to a transducer line and flushed with saline. The video monitor displayed normal arterial wave forms. The catheter was secured with 2-0 silk. A sterile dressing with antibiotic disc was applied. ESTIMATED BLOOD LOSS: minimal COMPLICATIONS: None Bella Brandt MD May 07, 2017 05:45
[2017-05-07] MEDS: PROPOFOL 1000 MG/100 ML INJ 100 ML IV PRN ×3 (06:08→17:37)
[2017-05-07] MEDS: CISATRACURIUM INJ 100 MG in SODIUM CHLOR 0.9% 250 ML INJ 240 ML IV PRN ×3 (06:08→21:31)
[2017-05-07] MEDS: fentaNYL DRIP 250 ML IV PRN (06:12)
[2017-05-07] MEDS: HEPARIN SODIUM - SQ 10,000 UNITS/ML VIAL SQ SCH ×2 (06:13→16:04)
[2017-05-07] MEDS: FAMOTIDINE 20 MG/2 ML VIAL IV PUSH SCH ×2 (06:13→17:17)
--- NOTE | 2017-05-07 07:54 | EKG ---
Date Performed: 05/07/2017 Time Performed: 00:11:28 PTAGE: 56 years EKG: Sinus rhythm Nonspecific T wave changes ABNORMAL ECG No significant change from prior electrocardiogram. PREVIOUS TRACING : 05/06/2017 21.40 DOCTOR: Zaid Ivy Interpretating Date/Time 05/07/2017 07:53:35
--- NOTE | 2017-05-07 07:56 | EKG ---
Date Performed: 05/06/2017 Time Performed: 21:40:08 PTAGE: 56 years EKG: Sinus rhythm POSSIBLE LEFT ATRIAL ENLARGEMENT NONSPECIFIC T-WAVE ABNORMALITY BORDERLINE ECG No significant change from prior electrocardiogram. PREVIOUS TRACING : 04/24/2017 23.03 DOCTOR: Zaid Ivy Interpretating Date/Time 05/07/2017 07:55:35
[2017-05-07] MEDS: CHLORHEXIDINE 0.12% (ORAL KIT) 15 ML CUP MT SCH ×2 (08:00→20:04)
[2017-05-07] MEDS ORDERED: MISC INFORMATION OTHER ONE (08:15)
[2017-05-07] MEDS ORDERED: SODIUM PHOSPHATE INJ 30 MMOL in SODIUM CHLOR 0.9% 250 ML INJ 240 ML IV PRN (08:15)
[2017-05-07] MEDS ORDERED: POTASSIUM CHLOR 40 MEQ PREMIX 100 ML IV PRN ×2 (08:15)
[2017-05-07] MEDS ORDERED: POTASSIUM CHLORIDE 25 MEQ EFFERVESCENT TAB PO PRN (08:15)
[2017-05-07] MEDS ORDERED: POTASSIUM PHOSPHATE MONOBASIC 500 MG TAB PO/TUBE PRN (08:15)
[2017-05-07] MEDS ORDERED: ASPIRIN 81 MG CHEW TAB CHEW ONE (08:15)
[2017-05-07] MEDS ORDERED: MAGNESIUM SULFATE INJ 2 GM in SODIUM CHLORIDE 0.9% INJ 96 ML IV PRN (08:15)
[2017-05-07] MEDS ORDERED: POTASSIUM PHOSPHATE MONOBASIC 500 MG TAB PO PRN (08:15)
[2017-05-07] MEDS ORDERED: POTASSIUM CHLOR 20 MEQ PREMIX 100 ML IV PRN ×2 (08:15)
[2017-05-07] MEDS ORDERED: POTASSIUM PHOSPHATE INJ 30 MMOL in SODIUM CHLOR 0.9% 250 ML INJ 250 ML IV PRN (08:15)
[2017-05-07] MEDS ORDERED: MAGNESIUM OXIDE 400 MG TAB PO PRN (08:15)
[2017-05-07] MEDS ORDERED: MAGNESIUM SULFATE INJ 4 GM in SODIUM CHLORIDE 0.9% INJ 92 ML IV PRN (08:15)
[2017-05-07] MEDS: PIPERACIL-TAZO 3.375 GM PREMIX 50 ML IV SCH ×3 (08:50→20:03)
[2017-05-07] MEDS: MAGNESIUM SULFATE 1 GM PREMIX 100 ML IV SCH ×2 (08:51→10:13)
[2017-05-07] MEDS: DOCUSATE SODIUM 50 MG/SENNA 8.6 MG TAB PO SCH ×2 (08:53→20:03)
[2017-05-07] MEDS: SODIUM CHLORIDE 0.9% FLUSH 10 ML FLUSH IV FLUSH SCH ×2 (08:54→20:03)
[2017-05-07] MEDS: SODIUM CHLOR 0.9% 1000 ML INJ 1,000 ML IV SCH ×2 (08:54→20:07)
[2017-05-07] MEDS: ARTIFICIAL TEARS OPTH OINT 3.5 APPLIC/3.5 GM TUBO EACH EYE PRN ×2 (08:54→20:03)
[2017-05-07] MEDS: ARTIFICIAL TEARS OPTH OINT 3.5 APPLIC/3.5 GM TUBO EACH EYE SCH ×2 (08:54→20:03)
[2017-05-07] MEDS ORDERED: ASPIRIN EC 81 MG TABEC PO SCH (09:00)
[2017-05-07] MEDS ORDERED: INSULIN REGULAR (IV INFUSION) 100 UNITS in SODIUM CHLORIDE 0.9% INJ 99 ML IV SCH (09:00)
[2017-05-07] MEDS ORDERED: SODIUM CHLORIDE 0.9% FLUSH 10 ML FLUSH IV FLUSH SCH (09:00)
[2017-05-07] MEDS ORDERED: PANTOPRAZOLE SODIUM 40 MG VIAL IV PUSH SCH (09:00)
[2017-05-07] MEDS ORDERED: VALPROATE INJ 500 MG in SODIUM CHLORIDE 0.9% INJ 100 ML IV SCH (09:00)
[2017-05-07] MEDS: LACTULOSE SYRUP 20 GM/30 ML CUP OG-TUBE SCH (09:31)
[2017-05-07 10:04] LABS: BLOOD GAS BASE EXCESS -0.8 mmol/L (-2-2); BLOOD GAS CARBOXYHEMOGLOBIN 1.8 % (0-4); BLOOD GAS HCO3 23 mmol/L (22-26); BLOOD GAS METHEMOGLOBIN 1.1 % (0-2); BLOOD GAS O2 HGB SATURATION 93 % (90-100); BLOOD GAS OXYGEN CONTENT 14.5 Vol % (12.0-20.0); BLOOD GAS PCO2 30 mmHg (38-42); BLOOD GAS PO2 63 mmHg (61-120); CRITICAL VALUE NO; OXYGEN DEVICE VENTILATOR; TEMP CORR TO 92.4
[2017-05-07 10:05] LABS: DRAW SITE ALINE; FIO2 60 %; STAT YES; ULNAR PULSE PRESENT; VENT SETTINGS 550/16/5PEEP
[2017-05-07 11:30] LABS: CREATINE KINASE 107 U/L (26-192); FREE T3 1.02 PG/ML (2.18-3.98); FREE T4 1.33 NG/DL (0.76-1.46)
[2017-05-07 11:40] LABS: BICARBONATE 24.5 MEQ/L (21.0-32.0); MAGNESIUM 2.2 MG/DL (1.5-2.5); POTASSIUM 4.2 MEQ/L (3.5-5.1)
[2017-05-07 11:43] LABS: CKMB 1.5 NG/ML (0.5-3.6)
[2017-05-07 12:12] LABS: BICARBONATE 25.4 MEQ/L (21.0-32.0); POTASSIUM 4.2 MEQ/L (3.5-5.1)
--- NOTE | 2017-05-07 12:25 | ECHRPT ---
Indication: Shortness of breath CONCLUSIONS The left ventricular systolic function is severely reduced with an estimated ejection fraction in th e range of 25-30%. Normal left ventricular size. Moderate concentric left ventricular hypertrophy. There is global left ventricular dysfunction. The left atrial size is moderately dilated. Mild thickening of the mitral valve leaflets. [id number] mitral valve regurgitation. Mild mitral valve stenosis. Mitral valve mean gradient is 3 mmHg. The mitral valve area by Pressure Halftime Method is 1.90 cm. The aortic valve is not well visualized. Aortic valve sclerosis is present. No aortic valve regurgitation. No aortic valve stenosis. There is trace tricuspid valve regurgitation. The estimated pulmonary arterial pressure is 31.5 mmHg. The pulmonary valve is not well visualized. The inferior vena cava was not well visualized. There is a trivial pericardial effusioa left sided pleural effusion is present. n. BP: / HR: Rhythm: Sinus MEASUREMENTS (Male / Female) Normal Values Technical Quality:Adequate 2D ECHO LV Diastolic Diameter PLAX 4.8 cm 4.2 - 5.9 / 3.9 - 5.3 cm LV Systolic Diameter PLAX 4.0 cm IVS Diastolic Thickness 1.4 cm 0.6 - 1.0 / 0.6 - 0.9 cm LVPW Diastolic Thickness 1.4 cm 0.6 - 1.0 / 0.6 - 0.9 cm LV Relative Wall Thickness 0.6 RV Internal Dim ED PLAX 2.4 cm LVOT Diameter 2.0 cm LA Systolic Diameter LX 4.6 cm 3.0 - 4.0 / 2.7 - 3.8 cm LV Ejection Fraction MOD 4C 30.2 % LV Ejection Fraction 4C AL 32.1 % M-MODE Aortic Root Diameter MM 2.6 cm LA Systolic Diameter MM 4.7 cm LA Ao Ratio MM 1.8 AV Cusp Separation MM 1.9 cm DOPPLER AV Peak Velocity 104.0 cm/s AV Peak Gradient 4.3 mmHg AI Peak Velocity 311.0 cm/s AI Peak Gradient 38.7 mmHg AI Pressure Half Time 562.0 ms LVOT Peak Velocity 62.4 cm/s LVOT Peak Gradient 1.6 mmHg AV Area Cont Eq pk 1.9 cm MV Peak Velocity 146.0 cm/s MV Peak Gradient 8.5 mmHg MV Mean Velocity 87.5 cm/s MV Mean Gradient 3.0 mmHg MV Area PHT 2.0 cm Mitral E Point Velocity 128.0 cm/s Mitral A Point Velocity 88.8 cm/s Mitral E to A Ratio 1.4 LV E' Lateral Velocity 3.4 cm/s Mitral E to LV E' Lateral Ratio 38.2 LV E' Septal Velocity 3.0 cm/s Mitral E to LV E' Septal Ratio 43.2 TR Peak Velocity 232.0 cm/s TR Peak Gradient 21.5 mmHg Right Atrial Pressure 10.0 mmHg Pulmonary Artery Systolic Pressu 31.5 mmHg Right Ventricular Systolic Press 31.5 mmHg PV Peak Velocity 55.7 cm/s PV Peak Gradient 1.2 mmHg FINDINGS LEFT VENTRICLE The left ventricular systolic function is severely reduced with an estimated ejection fraction in th e range of 25-30%. Normal left ventricular size. Moderate concentric left ventricular hypertrophy. There is global left ventricular dysfunction. RIGHT VENTRICLE Normal right ventricular size and systolic function. LEFT ATRIUM The left atrial size is moderately dilated. RIGHT ATRIUM The right atrial size is normal. ATRIAL SEPTUM Normal atrial septal thickness without atrial level shunting by limited color doppler interrogation. AORTA The aortic root and proximal ascending aorta are normal in size on limited imaging. MITRAL VALVE Mild thickening of the mitral valve leaflets. [id number] mitral valve regurgitation. Mild mitral valve stenosis. Mitral valve mean gradient is 3 mmHg. The mitral valve area by Pressure Halftime Method is 1.90 cm. AORTIC VALVE The aortic valve is not well visualized. Aortic valve sclerosis is present. No aortic valve regurgitation. No aortic valve stenosis. TRICUSPID VALVE There is trace tricuspid valve regurgitation. The estimated pulmonary arterial pressure is 31.5 mmHg. PULMONARY VALVE No pulmonary valve regurgitation or stenosis. The pulmonary valve is not well visualized. VESSELS The inferior vena cava was not well visualized. PERICARDIUM There is a trivial pericardial effusioa left sided pleural effusion is present. itz Ivy MD (Electronically Signed) Final Date:07 May 2017 12:23
--- NOTE | 2017-05-07 13:09 | HHI.CCPN ---
Subjective Remarks/Hospital Course 56-year-old female with past medical history of hypertension, chronic systolic heart failure, diabetes, COPD bipolar disorder, seizure disorder who presented to [facility] emergency department via [facility] following cardiac arrest. [facility] was originally called for shortness of breath and when they arrived patient was unresponsive and in PEA. Combitube was placed. CPR was initiated and patient was administered epinephrine 4, 1 amp bicarbonate, Narcan 2 mg prior to arrival via left tibial I/O. Blood glucose was 334. Exact duration of prehospital CPR is unclear. Combitube was removed and she was intubated upon arrival. Patient had ROSC 5 minutes after arrival. She received additional epinephrine 2 in the ED. She also received 1 L normal saline bolus, vancomycin, Zosyn in the ED. Critical care medicine is consulted for admission. EKG has no acute ischemia. SUBJ 05/07: Intubated sedated neuromuscularly paralyzed. Induced hypothermia initiated at 7 AM, 2-D echo shows EF 25-30%, mild to moderate MR. Serial troponins negative Objective Vital Signs Date Time Temp Pulse Resp B/P (MAP) Pulse Ox O2 Delivery O2 Flow Rate FiO2 05/07/17 12:00 70 05/07/17 12:00 59 05/07/17 12:00 94.3 16 135/66 (89) 100 136/72 (93) 05/07/17 02:00 Auto-Vent Intake and Output 05/07/17 05/07/17 05/08/17 08:00 16:00 00:00 Intake Total 1300 ml 623 ml Output Total 249 ml 155 ml Balance 1051 ml 468 ml Result Diagram: 05/07/17 0413 05/07/17 1037 Other Results Laboratory Tests Test 05/06/17 21:25 05/07/17 09:45 Blood Gas Puncture Site LT RADIAL YASMINE Blood Gas Patient Temperature 98.6 92.4 Blood Gas HCO3 21 mmol/L (22-26) 23 mmol/L (22-26) Blood Gas Base Excess -4.4 mmol/L (-2-2) -0.8 mmol/L (-2-2) Blood Gas Oxygen Saturation 94 % (90-100) 93 % (90-100) Arterial Blood pH 7.28 (7.380-7.420) 7.48 (7.380-7.420) Arterial Blood Partial Pressure CO2 47 mmHg (38-42) 30 mmHg (38-42) Arterial Blood Partial Pressure O2 346 mmHG (61-120) 63 mmHg (61-120) Arterial Blood Oxygen Content 15.5 Vol % (12.0-20.0) 14.5 Vol % (12.0-20.0) Arterial Blood Carboxyhemoglobin 5.2 % (0-4) 1.8 % (0-4) Arterial Blood Methemoglobin 0.4 % (0-2) 1.1 % (0-2) Blood Gas Hemoglobin 11.0 G/DL (12.0-16.0) 11.0 G/DL (12.0-16.0) Oxygen Delivery Device AMBU VENTILATOR Blood Gas Liter Flow 15 L/M Blood Gas Inspired Oxygen 100 % 60 % Blood Gas Ventilator Setting 550/16/5PEEP Objective Remarks Drips: Fentanyl Nimbex Propofol GENERAL: Obese female who is intubated. SKIN: Warm and dry. HEAD: Atraumatic. Normocephalic. EYES: Bilateral exophthalmus. Pupils equal and round, pinpoint and sluggishly reactive bilaterally ENT: No nasal bleeding or discharge. Mucous membranes pink and moist. Orotracheally intubated NECK: Trachea midline. No JVD appreciated. No meningismus CARDIOVASCULAR: Regular rate and rhythm, sinus rhythm on the monitor with rate in the 70s. No murmurs rubs or gallops. RESPIRATORY: Orotracheally intubated on mechanical ventilation ACV tidal volume 550/rate 16/P5/FiO2 60%. Breath sounds are equal bilaterally without wheezes Rales or rhonchi. GASTROINTESTINAL: Abdomen protuberant and obese but overall soft. No appreciable tenderness rebound or guarding. Bowel sounds are present. : Benoit catheter is in place MUSCULOSKELETAL: Extremities without clubbing, cyanosis, or edema. No obvious deformities. NEUROLOGICAL: Intubated sedated and neuromuscularly paralyzed limiting neuro exam A/P Problem List: (1) Chronic systolic heart failure ICD Code: I50.22 - Chronic systolic (congestive) heart failure Status: Chronic (2) Exophthalmos of both eyes ICD Code: H05.20 - Unspecified exophthalmos Status: Chronic (3) HTN (hypertension) ICD Code: I10 - Essential (primary) hypertension Status: Chronic (4) HLD (hyperlipidemia) ICD Code: E78.5 - Hyperlipidemia, unspecified Status: Chronic (5) Cardiogenic shock ICD Code: R57.0 - Cardiogenic shock Status: Acute (6) Acute respiratory failure with hypercapnia ICD Code: J96.02 - Acute respiratory failure with hypercapnia Status: Acute (7) Obesity (BMI 30-39.9) ICD Code: E66.9 - Obesity, unspecified Status: Chronic (8) CHF (congestive heart failure) ICD Code: I50.9 - CHF (congestive heart failure) Status: Acute (9) Bipolar disorder ICD Code: F31.9 - Bipolar affective disorder Status: Chronic (10) COPD (chronic obstructive pulmonary disease) ICD Code: J44.9 - Chronic obstructive pulmonary disease Status: Chronic (11) Tobacco abuse ICD Code: Z72.0 - Tobacco use Status: Chronic Assessment and Plan NEURO/PSYCH: Bipolar disorder Acute encephalopathy, anoxic Obtained CT brain - negative. Dr. Brandt held sedation to assess neuro exam to allow for decision regarding induced therapeutic hypothermia. Patient with PEA arrest but no apparent contraindication to induced therapeutic hypothermia so initiated at 0700 Daughter consented and placed heat exchange catheter Target temp 34 degrees x24 hours then rewarm 0.25 degrees C/hr. Obtained Depakote level. 48.Was on depakote for bipolar. Ammonia level increased , will hold depakote for now. Lactulose 30 daily. Repeat ammonia level. Check urine drug screen, APAP, ASA level. Carboxyhemoglobin level mildly elevated, may be secondary to tobacco abuse. Hold neurontin 100 day. Hold Wellbutrin XL. Obtain EEG. Propofol for sedation/fentanyl for analgosedation. Versed bolus and drip if needed. Nimbex for paralysis --> lacrilube bid. RESP: Acute hypercapnic respiratory failure COPD Tobacco abuse ACV tidal volume 550/rate 16/P5/F I/O to 60%. Ventilator bundle. Duoneb q6 hours. Albuterol q2 hours prn. No Wheezing CV: PEA cardiac arrest Post cardiac arrest syndrome with shock Chronic systolic heart failure with ejection fraction 15-20% (25-30 on echo today) Nonobstructive Coronary artery disease Essential Hypertension Hyperlipidemia Hold home antihypertensives due to hypotension (carvedilol 6.25 mill grams by mouth twice a day, Diovan 160 mg by mouth daily ) Levophed to maintain mean arterial pressure greater than 65 Serial lactic acid. Artline placed for hemodynamic monitoring. EKG normal sinus rhythm rate of 99. No apparent acute ischemia. Follow-up serial EKGs and cardiac markers-negative. 2-D echo EF 25-30% Etiology of cardiac arrest unclear. Most likely due to hypercapnia and respiratory acidosis - though her presentation was not remarkable for wheezing. Cardiology consulted Resumed ASA after head CT resulted. Holding statin due to elevated LFTs. No betablocker or obie-I due to hypotension. GI: GERD Transaminitis, probable ischemic hepatopathy. Orogastric tube to low intermittent and wall suction. Output is nonbloody, no coffee grounds. RUQ us FEN/RENAL: MARQUEZ Lactic acidemia Hyperphosphatemia Benoit in place. Monitor intake and output. Monitor electrolytes and replace as indicated. Hold home NSAID's. ID: UTI Received Zosyn and vancomycin in the emergency department. Urine and blood cultures have been sent. Will obtain sputum culture now. Continue Zosyn. HEME: No acute hematologic issues. ENDO: Diabetes mellitus with acute hyperglycemia Hold metformin, glipizide, lantus. Expect hyperglycemia to worsen during cooling. Insulin drip algorithm #2. Obtain thyroid studies-essentially euthyroid PROPH: Place on sq heparin for DVT prophylaxis. Famotidine for stress ulcer prophylaxis and history of GERD ACCESS: Right femoral art line placed by ED physician 05/06/17 #2, remove now. L femoral heat exchange catheter and L femoral art line placed 05/07/17 Next of kin is Cheyanne, her only daughter. She is not . Cheyanne lives in [place]. Has been informed of risk of anoxic brain injury and discussed rationale for induced therapeutic hypothermia. Discussed with Dr. Morrison Critical care time 35 minutes exclusive of separately billable procedures. Full code Problem Qualifiers (1) HTN (hypertension): Qualified Codes: I10 - Essential (primary) hypertension Jaqueline Umanzor MD May 07, 2017 13:09
--- NOTE | 2017-05-07 14:06 | MB ---
cc: RAJAT HUNTER M.D. DATE OF CONSULTATION: 05/07/2017. REASON FOR CONSULTATION: HISTORY OF PRESENT ILLNESS: Meli is a 56-year-old lady who I saw previously in 2013 with history of cardiomyopathy with ejection fraction of 15% to 20%, mild to moderate mitral regurgitation, PA pressure of 47 mmHg who presented with PEA yesterday. Resuscitation time is uncertain. I do not see any documentation of time until resuscitation. The patient is currently intubated and sedated and history is obtained from the chart. Initial [facility] called for shortness of breath however the patient was unresponsive when [facility] arrived. The patient received epinephrine x6, bicarbonate, Vancomycin and Zosyn in the emergency room and one liter of normal saline bolus. PAST MEDICAL HISTORY: Her past medical history includes: 1. Mild to moderate left main and three vessel coronary artery disease March,. 2. History of COPD. 3. Diabetes. 4. Hypertension. 5. Gastroesophageal reflux disease (GERD). 6. Bipolar disorder. 7. Hyperlipidemia. 8. Allergic rhinitis. 9. Peripheral neuropathy. 10. Cholecystectomy. 11. Bilateral tubal ligation. MEDICATIONS PRIOR TO ADMISSION: 1. Cetirizine. 2. Atrovent. 3. Albuterol. 4. Zocor 40 daily. 5. Carvedilol 6.5 twice a day. 6. Diovan 160 milligrams daily. 7. Aspirin 81 milligrams daily. 8. Diclofenac 75 milligrams twice a day. 9. Depakote. 10. Gabapentin. 11. Wellbutrin. 12. Lasix 20 daily. 13. Fluticasone. 14. Metformin 1000 twice a day. 15. Lantus. 16. Glipizide. SOCIAL HISTORY: Unknown as the patient is intubated and sedated. MEDICATIONS IN THE HOSPITAL CURRENTLY: 1. Aspirin 81 milligrams daily. 2. Senna 1 tab twice a day. 3. Insulin drip. 4. Piperacillin / Tazobactam. 5. Versed IV PRN. 6. Potassium and magnesium supplementation. 7. Pepcid 10 milligrams IV q. 12 hours. 8. Versed drip. 9. Fentanyl IV PRN for sedation. 10. Propofol IV. PHYSICAL EXAMINATION: VITAL SIGNS: Currently blood pressure 158/89, pulse is 94.3, saturations are 100% on 80% oxygen which was then weaned down to 60 and then put back up to 70, pulse ranging between 64 and 74. GENERAL: She is sedated, intubated. NECK: The neck is supple. No jugular venous distention. No bruits. CARDIOVASCULAR EXAM: S1-S2. No murmurs, rubs or gallops. LUNGS: Notable for decreased breath sounds at the left base. ABDOMEN: The abdomen is soft, nontender and nondistended with positive bowel sounds. EXTREMITIES: No lower extremity edema. LABORATORY DATA: White count 10.7, hemoglobin 11.6, hematocrit ____.9, platelet count 154,000. Blood gas this morning: pH 7.48, pCO2 30, pO2 63 on 60% oxygen yesterday at 21:25 her pH was 7.28, pCO2 47, pO2 346 on 100% oxygen. Sodium 140, potassium 4.9, chloride 106, bicarbonate 27, BUN 18, creatinine 1.44, glucose 317. Initial lactic acid 9.7. AST 107, ALT 127. Troponin less than 0.02. BNP 331. TSH 4.630. INR 101. Valproic acid level is 48. Blood cultures are negative x24 hours. IMAGING STUDIES: CT of the chest shows no pulmonary embolus, bibasilar areas of consolidation and atelectasis being worse on the left. Minimal bilateral pleural effusions. Head CT shows normal examination. Chest x-ray shows left base atelectasis or consolidation. EKGS: EKG initially showed normal sinus rhythm, corrected Q-T interval is 455 milliseconds. There are nonspecific S-T-T wave changes. ASSESSMENT: She has the following diagnoses: 1. Pulseless electrical activity. 2. Cardiac arrest. 3. Decompensated congestive heart failure. 4. Acute renal failure. 5. Lactic acidosis. 6. Shock liver with elevated liver function tests. 7. Hypomagnesemia. 8. Hepatic encephalopathy with ammonia level 37. 9. Decompensated congestive heart failure. 10.Hypoalbuminemia. 11. Seizure disorder. 12. COPD. 13. Coronary artery disease. 14. Diabetes mellitus. 15. MR. 16. Pulmonary hypertension. 17. Bipolar disorder. 18. History of hypertension. 19. Atelectasis. DISCUSSION: At this point in time, the patient is off pressors, currently sedated, neurologic status is not known as she is sedated with fentanyl, Versed and propofol. There is no objective evidence of ischemia despite full cardiac arrest of uncertain duration. Her troponins are negative and the EKG shows no ischemia. Certainly I agree with electrolyte repletion as this may have lead to her event. She will need a 2-D echocardiogram. She is also undergoing cooling protocol and prognosis will be heavily dependent on her neurologic status cooling protocol. Otherwise, will continue supportive care. Beta blockers, PROSPER inhibitors, diuretics are currently being held due to lactic acidosis, hypotension and cardiac arrest. She is currently off pressors so when she is hemodynamically stable, can consider restarting these medications at that time depending on her overall prognosis as well. MD MINGO Hernandez/HEMA /11:21 AM /1:45 PM
--- NOTE | 2017-05-07 14:54 | MB ---
cc: PIERCE VEGAS DO DATE OF CONSULTATION: 05/07/2017 REASON FOR CONSULTATION: Cardiac arrest. HISTORY OF PRESENT ILLNESS Meli Garcia is a 56-year-old female who presented to [facility] via [facility] following a cardiac arrest on May 06, 2017. [facility] was originally called for shortness of breath and when they arrived the patient was unresponsive and PEA. Per the reports it appears that [facility] witnessed the patient coding and started Cardiopulmonary resuscitation as well as intubated her in the field. She was administered epinephrine times four, bicarbonate one amp, Narcan 2 mg prior to arrival via left tibial IO. At this time I am unsure how long CPR was done but upon arrival to the emergency room the patient had return of spontaneous circulation. Five minutes after arrival, as well as two additional epinephrine in the emergency room. Because of her PEA arrest it was felt that she should be cooled for further for possible best neurologic outcome. In seeing her this morning she is currently sedated on the vent and reached a goal temperature at 09:00 a.m.. PAST MEDICAL HISTORY 1. COPD 2. Diabetes mellitus 3. Hypertension 4. Chronic systolic heart failure with an ejection fraction of 15-20%. 5. Gastroesophageal reflux disease 6. Bipolar disorder 7. Hyperlipidemia. ALLERGIES 1. Rhinitis 2. Peripheral neuropathy. PAST SURGICAL HISTORY 1. Cholecystectomy. 2. Bilateral tubal ligation. 3. Cardiac catheterization (March 26, 2014). RCA 30-40% ostial stenosis. Left main ostial 20%. Left circ no significant disease. High obtuse marginal 20%. LAD 10-20%. ALLERGIES NO KNOWN DRUG ALLERGIES. MEDICATIONS 1. Cetirizine 10 mg daily 2. Atrovent 2 puffs every 6 hours as needed for shortness of breath. 3. Albuterol 2 puffs every 4 hours as needed for shortness of breath. 4. Zocor 40 mg daily 5. Coreg 6.25 mg b.i.d. 6. Diovan 160 mg daily 7. Aspirin 81 mg daily 8. Diclofenac 75 mg b.i.d. 9. Depakote ER 500 mg daily 10. Gabapentin 100 mg every night 11. Wellbutrin unknown dose. 12. Lasix 20 mg daily 13. Fluconazole 50 mcg b.i.d. 14. Metformin 1000 mg b.i.d. 15. Lantus 24 units every night 16. Glipizide 5 mg b.i.d. FAMILY HISTORY Unable to obtain due to the patient's clinical condition. SOCIAL HISTORY Unable to obtain due to the clinical condition per previous reports the patient smokes a pack of cigarettes per day. REVIEW OF SYSTEMS Unable to obtain due to the patient's current clinical condition. PHYSICAL EXAMINATION VITAL SIGNS: Temperature 94.3, heart rate 60, blood pressure 135/66, respirations 16, Pulse ox 100% on the ventilator. IN GENERAL: The patient is currently intubated, sedated and cooled. HEAD, EYES, EARS, NOSE, AND THROAT: Pupils are equal. Mucous membranes moist. NECK: Supple. No JVD at 45 degrees. No carotid bruits heard bilaterally. Carotid upstroke is brisk in nature. HEART: Heart is regular rate and rhythm. Positive first and second heart sounds with no murmurs, gallops or rubs. LUNGS: The lungs are decreased bilaterally but no wheezes, rales or rhonchi. ABDOMEN: Abdomen is soft, nontender, nondistended, no organomegaly noted. EXTREMITIES: Show no clubbing, cyanosis or edema. Femoral and distal pulses intact bilaterally. NEUROLOGICALLY: Unable to obtain secondary to the patient being intubated and sedated. LABORATORY FINDINGS Hemoglobin 11.6, hematocrit 35.9, platelets 154. Potassium 4.2, BUN 17, creatinine 1.18, lactic acid 2.0, troponin 0.04. Electrocardiogram (May 06, 2017. May 07, 2017) sinus rhythm, nonspecific ST-T wave changes. IMPRESSION 1. Cardiac arrest, PEA status post CPR, from an unknown cause. 2. Chronic systolic heart failure with a previous ejection fraction of 15-20%, nonischemic in nature. 3. Hypertension 4. Hyperlipidemia 5. Acute respiratory failure with hypercapnia 6. Obesity 7. Bipolar disorder 8. History of COPD 9. Tobacco abuse 10. Chronic kidney disease stage III 11. Lactic acidosis RECOMMENDATIONS 1. Ms. Garcia had a cardiac arrest which was PEA in nature and I am unsure at this time, possible cause. If this was cardiac in nature or possibly due to arrhythmia. I would expect her troponins to be elevated and be found in either V-tach or V-fib not usually PEA. 2. This may have a respiratory cause to it. Unsure at this time. Agree with cooling her for 24 hours. 3. We will check an echocardiogram to look at her overall left ventricular function, cardiac structure and possible vulvopathies. 4. Depending on her hospital course. We will plan on starting her back on a heart failure medications once she has stabilized. 5. Aggressively replace her electrolytes specifically Magnesium as this may potentiate an arrhythmia. 6. Further recommendations based on the hospital course. 7. Dr. Early was consulted and this was given to Dr. Boyle, but when I spoke to Dr. Boyle she asked that I would see the patient, she is unsure if the patient follows with Dr. Early in the office and I am unable to ascertain from the patient whether she does see Dr. Early. This will be figured out once the patient is awake and is able to let us know who she sees outpatient. I will attempt to call Dr. Early to discuss this with him. 8. Thank you for allowing me to see Meli Garcia if there are any questions please do not hesitate to call. Pierce Vegas DO VG/ /12:25 PM /2:13 PM MTDPatty
--- NOTE | 2017-05-07 15:46 | RADRPT ---
EXAM DATE/TIME: 05/07/2017 14:19 [facility] COMPARISON: No previous studies available for comparison. [facility], US ABDOMEN COMPLETE, December 16, 2016[facility], CT ABDOMEN W/CONTRAST, January 19, 2010 INDICATIONS : Abnormal labs. MEDICAL HISTORY : Diabetes mellitus type 2. Hypertension. Hyperlipidemia. SURGICAL HISTORY : Cholecystectomy. ENCOUNTER: Subsequent ACUITY: 1 day PAIN SCORE: Nonresponsive. LOCATION: Abdomen. MEASUREMENTS: LIVER: 18.9 cm length COMMON DUCT: 7 mm RIGHT KIDNEY: 10.7 x 5.2 x 4.9 cm LEFT KIDNEY: 9.9 x 4.7 x 6.2 cm SPLEEN: 9.4 cm length AORTA: 1.6cm maximal FINDINGS: Ultrasound of the upper abdomen demonstrates increased echogenicity of the liver compatible with fatt y infiltration or hepatocellular disease. The spleen is unremarkable. The gallbladder is surgically a bsent. The visualized portion of the pancreas is unremarkable. The kidneys are normal bilaterally wit hout evidence of mass or hydronephrosis.. The spleen is normal in size and free of focal defects. A s mall left sided effusion is present. CONCLUSION: 1. Echogenic liver compatible with fatty infiltration or hepatocellular disease. 2. Cholecystectomy Laith Coe MD on May 07, 2017 at 15:43 Board Certified Radiologist. This report was verified electronically.
[2017-05-07 16:50] LABS: ANION GAP 7 MEQ/L (5-15); BICARBONATE 24.6 MEQ/L (21.0-32.0); BLOOD UREA NITROGEN 18 MG/DL (7-18); CHLORIDE 112 MEQ/L (98-107); GLOMERULAR FILTRATION RATE 61 ML/MIN (>89); MAGNESIUM 1.8 MG/DL (1.5-2.5); POTASSIUM 3.5 MEQ/L (3.5-5.1); SODIUM (NA) 144 MEQ/L (136-145)
[2017-05-07 16:53] LABS: CREATINE KINASE 105 U/L (26-192)
[2017-05-07 17:08] LABS: CKMB 1.5 NG/ML (0.5-3.6)
--- NOTE | 2017-05-07 19:22 | MG ---
cc: VEDA CUNNINGHAM M.D. Lab No: Date: 05/07/17 Age:56 Sex: F Race: REQUESTING Dr. Brandt HISTORY An EEG was obtained on this 56-year-old patient with history of being intubated and status post of cardiac arrest, found unresponsive. MEDICATIONS The patient Diprivan and fentanyl and ___. DESCRIPTION The EEG shows a burst suppression pattern. The bursts last typically 3-4 seconds and they are characterized by some high amplitude theta rhythms with some delta activity and then there is suppression lasting 10-20 seconds. This pattern repeats continually. Photic stimulation disclosed no change. INTERPRETATION Abnormal EEG because of a burst suppression pattern. This is suggestive of severe encephalopathy. It could also be related to a heavy sedation medication as the patient appears to be on fentanyl and Diprivan. Followup EEG is recommended especially with sedation held for portions of the EEG study. Veda Cunningham MD OFC/EO /7:03 PM /7:16 PM
[2017-05-07] MEDS ORDERED: GABAPENTIN 100 MG CAP PO SCH (21:00)
[2017-05-07 22:39] LABS: ALT (GPT) 97 U/L (10-53); ANION GAP 10 MEQ/L (5-15); AST (GOT) 72 U/L (15-37); BICARBONATE 22.3 MEQ/L (21.0-32.0); BLOOD UREA NITROGEN 18 MG/DL (7-18); CHLORIDE 113 MEQ/L (98-107); GLOMERULAR FILTRATION RATE 63 ML/MIN (>89); MAGNESIUM 1.7 MG/DL (1.5-2.5); POTASSIUM 3.9 MEQ/L (3.5-5.1); SODIUM (NA) 145 MEQ/L (136-145)
[2017-05-07 22:42] LABS: ALKALINE PHOSPHATASE 74 U/L (45-117); TOTAL BILIRUBIN ADULT 0.5 MG/DL (0.2-1.0)
[2017-05-08] VITALS (26 sets, daily range): BP systolic 93–154; BP diastolic 55–87; PULSE 57–108; RESP 14–16; TEMP 91.4–96; O2SAT 97–100
[2017-05-08] MEDS ORDERED: FUROSEMIDE 20 MG/2 ML VIAL IV PUSH ONE (00:30)
[2017-05-08] MEDS ORDERED: DEXTROSE 50% IN WATER 50 ML VIAL(D50) IV PUSH PRN (00:30)
[2017-05-08] MEDS: INSULIN ASPART SUPPLEMENTAL SCALE SQ SCH ×7 (00:30→23:18)
[2017-05-08] MEDS ORDERED: GLUCAGON 1 MG/ML VIAL OTHER PRN (00:30)
[2017-05-08] MEDS: PIPERACIL-TAZO 3.375 GM PREMIX 50 ML IV SCH ×4 (02:32→19:37)
[2017-05-08] MEDS: CHLORHEXIDINE GLUCONATE 2 % 1 PACK (2 CLOTHS) TOP SCH ×2 (03:11→23:18)
[2017-05-08] MEDS: PROPOFOL 1000 MG/100 ML INJ 100 ML IV PRN ×4 (03:58→22:22)
[2017-05-08] MEDS: RESP: ALBUTEROL 2.5 MG/IPRATROPIUM 0.5 MG NEB (SCH) INH ×4 (04:11→20:20)
[2017-05-08 04:23] LABS: BASOPHIL % 0.5 % (0.0-2.0); EOSINOPHIL % 0.4 % (0.0-4.0); HEMATOCRIT 32.4 % (35.0-46.0); HEMO FLAGS DIFF FINAL; LYMPH % 13.3 % (9.0-44.0); MEAN CELL VOLUME 92.2 FL (80.0-100.0); MEAN CORPUSCULAR HEMOGLOBIN 30.6 PG (27.0-34.0); MEAN CORPUSCULAR HGB CONC 33.2 % (32.0-36.0); MONO % 5.8 % (0.0-8.0); PLATELET COUNT 113 TH/MM3 (150-450); RED BLOOD COUNT 3.52 MIL/MM3 (4.00-5.30); RED CELL DISTRIBUTION WIDTH 13.9 % (11.6-17.2); WHITE BLOOD COUNT 7.5 TH/MM3 (4.0-11.0)
[2017-05-08] MEDS: CISATRACURIUM INJ 100 MG in SODIUM CHLOR 0.9% 250 ML INJ 240 ML IV PRN ×2 (04:56→11:32)
--- NOTE | 2017-05-08 05:14 | RADRPT ---
EXAM DATE/TIME: 05/08/2017 03:44 [facility] COMPARISON: CHEST SINGLE AP, May 06, 2017, 22:49. INDICATIONS : Shortness of breath, possible pulmonary disease. MEDICAL HISTORY : Diabetes mellitus type II. Hypertension Hyperlipidemia SURGICAL HISTORY : Cholecystectomy. ENCOUNTER: Subsequent ACUITY: 2 days PAIN SCORE: Non-responsive. LOCATION: Bilateral chest FINDINGS: ET tube tip is 2.3 cm from the jayson. The heart size is normal. There is increased density in the le ft base. The right lung is clear. There is an NG tube in place with the tip directed into the stomach . CONCLUSION: Left base atelectasis/consolidation. Some degree of left effusion may also be present. Noé Ybarra MD on May 08, 2017 at 5:12 Board Certified Radiologist. This report was verified electronically.
[2017-05-08] MEDS: HEPARIN SODIUM - SQ 10,000 UNITS/ML VIAL SQ SCH ×2 (05:35→16:15)
[2017-05-08] MEDS: ARTIFICIAL TEARS OPTH OINT 3.5 APPLIC/3.5 GM TUBO EACH EYE PRN ×3 (05:35→19:37)
[2017-05-08] MEDS: FAMOTIDINE 20 MG/2 ML VIAL IV PUSH SCH ×2 (05:35→17:23)
[2017-05-08] MEDS: fentaNYL DRIP 250 ML IV PRN ×2 (06:42→22:23)
[2017-05-08] MEDS: LACTULOSE SYRUP 20 GM/30 ML CUP OG-TUBE SCH (08:07)
[2017-05-08] MEDS: DOCUSATE SODIUM 50 MG/SENNA 8.6 MG TAB PO SCH ×2 (08:07→19:37)
[2017-05-08] MEDS: CHLORHEXIDINE 0.12% (ORAL KIT) 15 ML CUP MT SCH ×2 (08:07→19:24)
[2017-05-08] MEDS: ARTIFICIAL TEARS OPTH OINT 3.5 APPLIC/3.5 GM TUBO EACH EYE SCH ×2 (08:08→19:37)
[2017-05-08] MEDS: ASPIRIN EC 81 MG TABEC PO SCH (08:08)
[2017-05-08] MEDS: SODIUM CHLORIDE 0.9% FLUSH 10 ML FLUSH IV FLUSH SCH ×2 (08:08→19:37)
[2017-05-08 09:56] LABS: ANION GAP 11 MEQ/L (5-15); AST (GOT) 70 U/L (15-37); BICARBONATE 22.1 MEQ/L (21.0-32.0); BLOOD UREA NITROGEN 18 MG/DL (7-18); CHLORIDE 110 MEQ/L (98-107); GLOMERULAR FILTRATION RATE 63 ML/MIN (>89); POTASSIUM 3.8 MEQ/L (3.5-5.1); SODIUM (NA) 143 MEQ/L (136-145)
[2017-05-08 09:57] LABS: ALT (GPT) 99 U/L (10-53)
[2017-05-08 10:01] LABS: ALKALINE PHOSPHATASE 82 U/L (45-117); TOTAL BILIRUBIN ADULT 0.7 MG/DL (0.2-1.0)
--- NOTE | 2017-05-08 10:25 | HHI.CCPN ---
Subjective Remarks/Hospital Course 56-year-old female with past medical history of hypertension, chronic systolic heart failure, diabetes, COPD bipolar disorder, seizure disorder who presented to [facility] emergency department via E [facility]AC following cardiac arrest. [facility] was originally called for shortness of breath and when they arrived patient was unresponsive and in PEA. Combitube was placed. CPR was initiated and patient was administered epinephrine 4, 1 amp bicarbonate, Narcan 2 mg prior to arrival via left tibial I/O. Blood glucose was 334. Exact duration of prehospital CPR is unclear. Combitube was removed and she was intubated upon arrival. Patient had ROSC 5 minutes after arrival. She received additional epinephrine 2 in the ED. She also received 1 L normal saline bolus, vancomycin, Zosyn in the ED. Critical care medicine is consulted for admission. EKG has no acute ischemia. SUBJ 05/07: Intubated sedated neuromuscularly paralyzed. Induced hypothermia initiated at 7 AM, 2-D echo shows EF 25-30%, mild to moderate MR. Serial troponins negative 05/08: Remains neuromuscularly paralyzed. Hypothermia will be completed by the known and rewarming was started. Remains off inotropes and pressors Objective Vital Signs Date Time Temp Pulse Resp B/P (MAP) Pulse Ox O2 Delivery O2 Flow Rate FiO2 05/08/17 10:00 67 05/08/17 08:00 40 05/08/17 08:00 91.4 16 112/67 (82) 100 127/68 (87) 05/07/17 02:00 Auto-Vent Intake and Output 05/08/17 05/08/17 05/09/17 08:00 16:00 00:00 Intake Total 1332 ml 94 ml Output Total 612 ml 33 ml Balance 720 ml 61 ml Result Diagram: 05/08/17 0408 05/08/17 0841 Objective Remarks Drips: Fentanyl Nimbex Propofol GENERAL: Obese female who is intubated. SKIN: Warm and dry. HEAD: Atraumatic. Normocephalic. EYES: Bilateral exophthalmus. Pupils equal and round, pinpoint and sluggishly reactive bilaterally ENT: No nasal bleeding or discharge. Orotracheally intubated NECK: Trachea midline. No JVD appreciated. No meningismus CARDIOVASCULAR: Regular rate and rhythm, sinus rhythm on the monitor with rate in the 70s. No murmurs rubs or gallops. RESPIRATORY: ACV tidal volume 550/rate 16/P5. Breath sounds are equal bilaterally without wheezes Rales or rhonchi. GASTROINTESTINAL: Abdomen protuberant soft. No appreciable tenderness rebound or guarding. Bowel sounds are present. : Benoit catheter is in place MUSCULOSKELETAL: Extremities without clubbing, cyanosis, or edema. No obvious deformities. NEUROLOGICAL: Intubated sedated and neuromuscularly paralyzed limiting neuro exam A/P Problem List: (1) Chronic systolic heart failure ICD Code: I50.22 - Chronic systolic (congestive) heart failure Status: Chronic (2) Exophthalmos of both eyes ICD Code: H05.20 - Unspecified exophthalmos Status: Chronic (3) HTN (hypertension) ICD Code: I10 - Essential (primary) hypertension Status: Chronic (4) HLD (hyperlipidemia) ICD Code: E78.5 - Hyperlipidemia, unspecified Status: Chronic (5) Cardiogenic shock ICD Code: R57.0 - Cardiogenic shock Status: Acute (6) Acute respiratory failure with hypercapnia ICD Code: J96.02 - Acute respiratory failure with hypercapnia Status: Acute (7) Obesity (BMI 30-39.9) ICD Code: E66.9 - Obesity, unspecified Status: Chronic (8) CHF (congestive heart failure) ICD Code: I50.9 - CHF (congestive heart failure) Status: Acute (9) Bipolar disorder ICD Code: F31.9 - Bipolar affective disorder Status: Chronic (10) COPD (chronic obstructive pulmonary disease) ICD Code: J44.9 - Chronic obstructive pulmonary disease Status: Chronic (11) Tobacco abuse ICD Code: Z72.0 - Tobacco use Status: Chronic Assessment and Plan NEURO/PSYCH: Acute encephalopathy, anoxic Bipolar disorder Obtained CT brain - negative. Dr. Brandt held sedation to assess neuro exam to allow for decision regarding induced therapeutic hypothermia. Patient with PEA arrest but no apparent contraindication to induced therapeutic hypothermia so initiated at 0700 05/07/17 Daughter consented and placed heat exchange catheter Obtained Depakote level. 48. Was on Depakote for bipolar. Holding Depakote for now. Ammonia level increased. Lactulose 30 daily. Repeat ammonia level. Neg urine drug screen, APAP, ASA level. Carboxyhemoglobin level mildly elevated, may be secondary to tobacco abuse. Hold neurontin 100 day. Hold Wellbutrin XL. EEG shows severe encephalopathy, burst suppression pattern. Propofol for sedation/fentanyl for analgosedation. Versed bolus and drip if needed. Nimbex for paralysis --> lacrilube bid. RESP: Acute hypercapnic respiratory failure COPD Tobacco abuse ACV tidal volume 550/rate 16/P5/F I/O to 60%. Ventilator bundle. Duoneb q6 hours. Albuterol q2 hours prn. No Wheezing No Vent weaning until neuromuscular paralysis is discontinued and mental status improved CV: PEA cardiac arrest Post cardiac arrest syndrome with shock Chronic systolic heart failure with ejection fraction 15-20% (25-30 on echo today) Nonobstructive Coronary artery disease Essential Hypertension Hyperlipidemia Hold home antihypertensives due to hypotension (carvedilol 6.25 mill grams by mouth twice a day, Diovan 160 mg by mouth daily ) Levophed to maintain mean arterial pressure greater than 65 now off Serial lactic acid. Artline placed for hemodynamic monitoring. EKG normal sinus rhythm rate of 99. No apparent acute ischemia. Follow-up serial EKGs and cardiac markers-negative. 2-D echo EF 25-30% Etiology of cardiac arrest unclear. Most likely due to hypercapnia and respiratory acidosis - though her presentation was not remarkable for wheezing. Cardiology consulted Resumed ASA after head CT resulted. Holding statin due to elevated LFTs. No betablocker or obie-I due to hypotension. GI: GERD Transaminitis, probable ischemic hepatopathy. Orogastric tube to low intermittent and wall suction. Output is nonbloody, no coffee grounds. RUQ us-fatty liver, hepatitis panel pending FEN/RENAL: MARQUEZ Lactic acidemia Hyperphosphatemia Benoit in place. Monitor intake and output. Monitor electrolytes and replace as indicated. Hold home NSAID's. Creat stable ID: UTI Received Zosyn and vancomycin in the emergency department. Urine and blood cultures have been sent. Follow-up cultures Continue Zosyn. HEME: No acute hematologic issues. ENDO: Diabetes mellitus with acute hyperglycemia Hold metformin, glipizide, lantus. Expect hyperglycemia to worsen during cooling. Insulin drip algorithm #2. Thyroid studies-essentially euthyroid PROPH: Sq heparin for DVT prophylaxis. Famotidine for stress ulcer prophylaxis and history of GERD ACCESS: Right femoral art line placed by ED physician 05/06/17 #3, removed. L femoral heat exchange catheter and L femoral art line placed 05/07/17 Next of kin is Cheyanne, her only daughter. She is not . Cheyanne lives in [place]. Has been informed of risk of anoxic brain injury and discussed rationale for induced therapeutic hypothermia. Dr. Brandt Discussed with Dr. Morrison Critical care time 35 minutes exclusive of separately billable procedures. Full code Problem Qualifiers (1) HTN (hypertension): Qualified Codes: I10 - Essential (primary) hypertension Jaqueline Umanzor MD May 08, 2017 10:25
--- NOTE | 2017-05-08 13:56 | PD.CARD.PN ---
Subjective Subjective Remarks intubated, sedated Objective Medications Current Medications Medications (Trade) Dose Ordered Sig/Scarlett Route Start Time Stop Time Status Last Admin Propofol 100 ml @ 3.9 mls/hr TITRATE PRN IV 05/06/17 21:30 05/08/17 09:38 Fentanyl Citrate 250 ml @ 5 mls/hr TITRATE PRN IV 05/06/17 21:30 05/08/17 06:42 (Brethine Inj) 1 mg UNSCH PRN SQ 05/06/17 22:45 Sodium Chloride 1,000 ml @ 100 mls/hr Q10H IV 05/06/17 23:28 Future Hold 05/07/17 20:07 (Tylenol) 650 mg Q6H PRN PO 05/06/17 23:30 (fentaNYL INJ) 50 mcg Q1H PRN IV PUSH 05/06/17 23:30 (Zofran Inj) 4 mg Q6H PRN IV PUSH 05/06/17 23:30 (Duoneb Neb) 1 ampule Q6HR NEB INH 05/07/17 04:00 05/08/17 07:46 (Albuterol Neb) 2.5 mg Q2HR NEB PRN INH 05/06/17 23:30 Miscellaneous Information 1 Q361D XX 05/06/17 23:30 (Chlorhexidine 2% Cloth) 3 pack Taper DAILY@04 TOP 05/07/17 04:00 05/03/18 03:59 05/07/17 04:00 (Chlorhexidine 2% Cloth) 3 pack UNSCH PRN TOP 05/06/17 23:30 (Aggie-Colace) 1 tab BID PO 05/07/17 09:00 05/08/17 08:07 (Milk Of Magnesia Liq) 30 ml Q12H PRN PO 05/06/17 23:30 (Senokot) 17.2 mg Q12H PRN PO 05/06/17 23:30 (Dulcolax Supp) 10 mg DAILY PRN RECTAL 05/06/17 23:30 (Peridex 0.12% Liq) 15 ml BID@08,20 MT 05/07/17 08:00 05/08/17 08:07 (Pepcid Inj) 10 mg Q12H IV PUSH 05/07/17 06:00 05/08/17 05:35 (Ativan Inj) 1 mg Q1H PRN IV PUSH 05/07/17 04:30 (Versed Inj) 2 mg Q1H PRN IV PUSH 05/07/17 04:30 Midazolam HCl 100 ml @ 2 mls/hr TITRATE PRN IV 05/07/17 04:30 Cisatracurium Besylate 100 mg/ Sodium Chloride 250 ml @ 50.73 mls/ hr TITRATE PRN IV 05/07/17 05:00 05/08/17 11:32 (Lacrilube Opht Oint) 1 applic Q4H PRN EACH EYE 05/07/17 04:30 05/08/17 08:08 (NS Flush) 2 ml BID IV FLUSH 05/07/17 09:00 05/08/17 08:08 (NS Flush) 2 ml UNSCH PRN IV FLUSH 05/07/17 04:30 Miscellaneous Information 0 ml @ 0 mls/hr UNSCH IV 05/07/17 04:30 (Heparin Inj) 5,000 units Q12H SQ 05/07/17 05:00 05/08/17 05:35 Norepinephrine Bitartrate 4 mg/ Sodium Chloride 250 ml @ 7.5 mls/hr TITRATE PRN IV 05/07/17 05:15 Valproate Sodium 500 mg/Sodium Chloride 105 ml @ 105 mls/hr Q24H IV 05/07/17 09:00 Future Hold 05/07/17 08:50 (Lacrilube Opht Oint) 1 applic Q12HR EACH EYE 05/07/17 09:00 (Versed Inj) 2 mg Q15M PRN IV PUSH 05/07/17 08:15 (Ecotrin Ec) 81 mg DAILY PO 05/08/17 09:00 05/08/17 08:08 Potassium Chloride 100 ml @ 50 mls/hr Q2H PRN IV 05/07/17 08:15 Potassium Chloride 100 ml @ 50 mls/hr Q2H PRN IV 05/07/17 08:15 (K-Lyte Cl Eff) 50 meq UNSCH PRN PO 05/07/17 08:15 Potassium Chloride 100 ml @ 25 mls/hr UNSCH PRN IV 05/07/17 08:15 05/07/17 17:17 Potassium Chloride 100 ml @ 50 mls/hr Q2H PRN IV 05/07/17 08:15 Magnesium Sulfate 4 gm/Sodium Chloride 100 ml @ 50 mls/hr UNSCH PRN IV 05/07/17 08:15 (Mag-Ox) 800 mg UNSCH PRN PO 05/07/17 08:15 Magnesium Sulfate 2 gm/Sodium Chloride 100 ml @ 50 mls/hr UNSCH PRN IV 05/07/17 08:15 (K-Phos) 2,000 mg Q4H PRN PO 05/07/17 08:15 Sodium Phosphate 30 mmol/Sodium Chloride 250 ml @ 42 mls/hr UNSCH PRN IV 05/07/17 08:15 05/07/17 10:37 (K-Phos) 2,000 mg UNSCH PRN PO/TUBE 05/07/17 08:15 Potassium Phosphate 30 mmol/ Sodium Chloride 260 ml @ 42 mls/hr UNSCH PRN IV 05/07/17 08:15 Piperacillin Sod/ Tazobactam Sod 50 ml @ 100 mls/hr Q6H IV 05/07/17 09:00 05/08/17 08:08 (Lactulose Liq) 30 ml DAILY OG-TUBE 05/07/17 09:00 05/08/17 08:07 (D50w (Vial) Inj) 50 ml UNSCH PRN IV PUSH 05/08/17 00:30 (Glucagon Inj) 1 mg UNSCH PRN OTHER 05/08/17 00:30 (NovoLOG SUPPLEMENTAL SCALE) 1 Q4H SQ 05/08/17 00:30 05/08/17 08:07 Vital Signs / I&O Vital Signs Date Time Temp Pulse Resp B/P (MAP) Pulse Ox O2 Delivery O2 Flow Rate FiO2 05/08/17 12:00 92.7 72 16 100/64 (76) 100 109/63 (78) 05/08/17 12:00 40 05/08/17 12:00 72 05/08/17 11:07 100 40 05/08/17 10:00 67 05/08/17 08:00 63 05/08/17 08:00 40 05/08/17 08:00 91.4 63 16 112/67 (82) 100 127/68 (87) 05/08/17 07:47 100 40 05/08/17 06:00 64 05/08/17 04:11 100 40 05/08/17 04:00 91.8 62 16 132/75 (94) 100 154/79 (104) 05/08/17 04:00 40 05/08/17 04:00 62 05/08/17 02:00 57 05/08/17 01:00 50 05/08/17 01:00 100 50 05/08/17 00:00 65 05/08/17 00:00 60 05/08/17 00:00 91.6 65 16 142/87 (105) 100 140/82 (101) 05/07/17 22:00 53 05/07/17 20:20 100 60 05/07/17 20:00 52 05/07/17 20:00 91.8 52 16 101/61 (74) 100 111/66 (81) 05/07/17 20:00 70 05/07/17 18:01 91.9 52 16 116/72 (87) 100 127/72 (90) 05/07/17 18:00 52 05/07/17 17:00 91.8 55 16 132/72 (92) 100 139/75 (96) 05/07/17 16:00 91.9 54 16 120/59 (79) 100 126/70 (88) 05/07/17 16:00 70 05/07/17 16:00 54 05/07/17 15:22 100 70 05/07/17 15:01 91.9 53 16 114/68 (83) 100 112/61 (78) 05/07/17 14:00 56 05/07/17 14:00 91.8 56 16 126/80 (95) 100 128/69 (88) I/O 05/07/17 05/07/17 05/07/17 05/08/17 05/08/17 05/08/17 06:59 14:59 22:59 06:59 14:59 22:59 Intake Total 1050 ml 1174 ml 1876 ml 1261 ml 378 ml Output Total 200 ml 258 ml 636 ml 599 ml 115 ml Balance 850 ml 916 ml 1240 ml 662 ml 263 ml Intake IV Total 1050 ml 1174 ml 1766 ml 1261 ml 378 ml Tube Irrigant 110 ml Output Urine Total 200 ml 258 ml 161 ml 299 ml 115 ml Gastric Drainage Total 475 ml 300 ml # Bowel Movements 0 Physical Exam GENERAL: SKIN: Warm and dry. HEAD: Normocephalic. EYES: No scleral icterus. No injection or drainage. NECK: Supple, trachea midline. No JVD or lymphadenopathy. CARDIOVASCULAR: Regular rate and rhythm without murmurs, gallops, or rubs. RESPIRATORY: Breath sounds equal bilaterally. No accessory muscle use. GASTROINTESTINAL: Abdomen soft, non-tender, nondistended. MUSCULOSKELETAL: No cyanosis, or edema. BACK: Nontender without obvious deformity. No CVA tenderness. Laboratory Laboratory Tests Test 05/07/17 15:45 05/07/17 22:08 05/08/17 04:08 05/08/17 08:41 Blood Urea Nitrogen 18 MG/DL 18 MG/DL 18 MG/DL Creatinine 1.11 MG/DL 1.09 MG/DL 1.08 MG/DL Random Glucose 136 MG/DL 85 MG/DL 162 MG/DL Calcium Level 7.8 MG/DL 8.1 MG/DL 8.4 MG/DL Magnesium Level 1.8 MG/DL 1.7 MG/DL Sodium Level 144 MEQ/L 145 MEQ/L 143 MEQ/L Potassium Level 3.5 MEQ/L 3.9 MEQ/L 3.8 MEQ/L Chloride Level 112 MEQ/L 113 MEQ/L 110 MEQ/L Carbon Dioxide Level 24.6 MEQ/L 22.3 MEQ/L 22.1 MEQ/L Anion Gap 7 MEQ/L 10 MEQ/L 11 MEQ/L Estimat Glomerular Filtration Rate 61 ML/MIN 63 ML/MIN 63 ML/MIN Total Creatine Kinase 105 U/L Creatine Kinase MB 1.5 NG/ML Troponin I 0.03 NG/ML Total Protein 5.4 GM/DL 5.7 GM/DL Albumin 2.4 GM/DL 2.5 GM/DL Alkaline Phosphatase 74 U/L 82 U/L Aspartate Amino Transf (AST/SGOT) 72 U/L 70 U/L Alanine Aminotransferase (ALT/SGPT) 97 U/L 99 U/L Total Bilirubin 0.5 MG/DL 0.7 MG/DL Phosphorus Level 3.0 MG/DL White Blood Count 7.5 TH/MM3 Red Blood Count 3.52 MIL/MM3 Hemoglobin 10.8 GM/DL Hematocrit 32.4 % Mean Corpuscular Volume 92.2 FL Mean Corpuscular Hemoglobin 30.6 PG Mean Corpuscular Hemoglobin Concent 33.2 % Red Cell Distribution Width 13.9 % Platelet Count 113 TH/MM3 Mean Platelet Volume 8.4 FL Neutrophils (%) (Auto) 80.0 % Lymphocytes (%) (Auto) 13.3 % Monocytes (%) (Auto) 5.8 % Eosinophils (%) (Auto) 0.4 % Basophils (%) (Auto) 0.5 % Neutrophils # (Auto) 6.0 TH/MM3 Lymphocytes # (Auto) 1.0 TH/MM3 Monocytes # (Auto) 0.4 TH/MM3 Eosinophils # (Auto) 0.0 TH/MM3 Basophils # (Auto) 0.0 TH/MM3 CBC Comment DIFF FINAL Differential Comment Ammonia 31 MCMOL/L Assessment and Plan Problem List: (1) CAD (coronary artery disease) ICD Codes: I25.10 - Atherosclerotic heart disease of [place] coronary artery without angina pectoris (2) CHRONIC OBSTRUCTIVE PULMON DISEASE W ACUTE LOWER RESP INFCT ICD Codes: J44.0 - CHRONIC OBSTRUCTIVE PULMON DISEASE W ACUTE LOWER RESP INFCT Status: Acute (3) Cardiomyopathy ICD Codes: I42.9 - Cardiomyopathy Status: Acute (4) Cardiopulmonary arrest ICD Codes: I46.9 - Cardiac arrest, cause unspecified Status: Acute (5) Diabetes mellitus ICD Codes: E11.9 - Type 2 diabetes mellitus without complications Status: Acute Assessment and Plan 1.) Cardiomyopathy - euvolemic, obie and beta navya held due to recent cardiogenic shock and uncertain neurologic status 2.) CAD - continue aspirin, statin held due to shock liver and elevated lfts Aguila Early MD May 08, 2017 13:55
[2017-05-08] MEDS ORDERED: SODIUM CHLOR 0.9% 1000 ML INJ 1,000 ML IV ONE (23:15)
[2017-05-09] VITALS (21 sets, daily range): BP systolic 86–137; BP diastolic 54–75; PULSE 97–178; RESP 14–16; TEMP 98–100.3; O2SAT 96–100
[2017-05-09] MEDS: MIDAZOLAM 100 MG/100 ML INJ 100 ML IV PRN ×2 (00:01→19:07)
[2017-05-09] MEDS ORDERED: MIDAZOLAM 100 MG/100 ML INJ 100 ML IV PRN (00:15)
[2017-05-09] MEDS: NOREPINEPHRINE INJ 4 MG in SODIUM CHLOR 0.9% 250 ML INJ 246 ML IV PRN ×2 (01:19→05:08)
[2017-05-09] MEDS: PIPERACIL-TAZO 3.375 GM PREMIX 50 ML IV SCH ×4 (02:05→21:48)
[2017-05-09] MEDS: RESP: ALBUTEROL 2.5 MG/IPRATROPIUM 0.5 MG NEB (SCH) INH ×4 (03:31→21:23)
[2017-05-09] MEDS: INSULIN ASPART SUPPLEMENTAL SCALE SQ SCH ×4 (04:09→20:30)
[2017-05-09] MEDS: HEPARIN SODIUM - SQ 10,000 UNITS/ML VIAL SQ SCH ×2 (04:10→15:31)
[2017-05-09] MEDS: PROPOFOL 1000 MG/100 ML INJ 100 ML IV PRN (04:10)
[2017-05-09] MEDS: FAMOTIDINE 20 MG/2 ML VIAL IV PUSH SCH ×2 (04:10→15:33)
[2017-05-09 06:48] LABS: AUTOMATED NEUTROPHIL # 7.5 TH/MM3 (1.8-7.7); BASOPHIL # 0.1 TH/MM3 (0-0.2); BASOPHIL % 0.6 % (0.0-2.0); EOSINOPHIL % 0.4 % (0.0-4.0); HEMATOCRIT 32.1 % (35.0-46.0); HEMO FLAGS DIFF FINAL; LYMPH % 10.4 % (9.0-44.0); LYMPHOCYTE # 0.9 TH/MM3 (1.0-4.8); MEAN CELL VOLUME 93.6 FL (80.0-100.0); MEAN CORPUSCULAR HEMOGLOBIN 31.2 PG (27.0-34.0); MEAN CORPUSCULAR HGB CONC 33.3 % (32.0-36.0); MONO % 5.3 % (0.0-8.0); NEUT % 83.3 % (16.0-70.0); PLATELET COUNT 121 TH/MM3 (150-450); RED BLOOD COUNT 3.44 MIL/MM3 (4.00-5.30)
[2017-05-09 07:01] LABS: ANION GAP 11 MEQ/L (5-15); AST (GOT) 64 U/L (15-37); BICARBONATE 21.7 MEQ/L (21.0-32.0); BLOOD UREA NITROGEN 16 MG/DL (7-18); CHLORIDE 111 MEQ/L (98-107); GLOMERULAR FILTRATION RATE 63 ML/MIN (>89); MAGNESIUM 1.5 MG/DL (1.5-2.5); POTASSIUM 3.8 MEQ/L (3.5-5.1); SODIUM (NA) 144 MEQ/L (136-145)
[2017-05-09 07:12] LABS: ALKALINE PHOSPHATASE 87 U/L (45-117); ALT (GPT) 88 U/L (10-53); TOTAL BILIRUBIN ADULT 0.6 MG/DL (0.2-1.0)
[2017-05-09] MEDS: LACTULOSE SYRUP 20 GM/30 ML CUP OG-TUBE SCH (07:57)
[2017-05-09] MEDS: ARTIFICIAL TEARS OPTH OINT 3.5 APPLIC/3.5 GM TUBO EACH EYE SCH ×2 (07:57→21:49)
[2017-05-09] MEDS: SODIUM CHLORIDE 0.9% FLUSH 10 ML FLUSH IV FLUSH SCH ×2 (07:58→21:48)
[2017-05-09] MEDS: DOCUSATE SODIUM 50 MG/SENNA 8.6 MG TAB PO SCH ×2 (07:58→21:00)
[2017-05-09] MEDS: ASPIRIN EC 81 MG TABEC PO SCH (07:58)
[2017-05-09] MEDS: ACETAMINOPHEN 325 MG TAB PO PRN ×2 (07:58→15:41)
[2017-05-09] MEDS: CHLORHEXIDINE 0.12% (ORAL KIT) 15 ML CUP MT SCH ×2 (07:59→21:49)
--- NOTE | 2017-05-09 11:04 | HHI.CCPN ---
Subjective Remarks/Hospital Course 56-year-old female with past medical history of hypertension, chronic systolic heart failure, diabetes, COPD bipolar disorder, seizure disorder who presented to [facility] emergency department via E VAC following cardiac arrest. [facility] was originally called for shortness of breath and when they arrived patient was unresponsive and in PEA. Combitube was placed. CPR was initiated and patient was administered epinephrine 4, 1 amp bicarbonate, Narcan 2 mg prior to arrival via left tibial I/O. Blood glucose was 334. Exact duration of prehospital CPR is unclear. Combitube was removed and she was intubated upon arrival. Patient had ROSC 5 minutes after arrival. She received additional epinephrine 2 in the ED. She also received 1 L normal saline bolus, vancomycin, Zosyn in the ED. Critical care medicine is consulted for admission. EKG has no acute ischemia. SUBJ 05/07: Intubated sedated neuromuscularly paralyzed. Induced hypothermia initiated at 7 AM, 2-D echo shows EF 25-30%, mild to moderate MR. Serial troponins negative 05/08: Remains neuromuscularly paralyzed. Hypothermia will be completed by the known and rewarming was started. Remains off inotropes and pressors 05/09: Hypothermia protocol completed, placed overnight on Versed also in addition to propofol and fentanyl for tachycardia and asynchrony. Currently patient while on sedation do not open eyes with very slight withdrawal to pain Objective Vital Signs Date Time Temp Pulse Resp B/P (MAP) Pulse Ox O2 Delivery O2 Flow Rate FiO2 05/09/17 09:23 100 40 05/09/17 06:00 97 05/09/17 05:08 95/55 05/09/17 04:00 98.6 14 05/07/17 02:00 Auto-Vent Intake and Output 05/09/17 05/09/17 05/09/17 07:59 15:59 23:59 Output Total 350 ml Balance -350 ml Result Diagram: 05/09/17 0530 05/09/17 0530 Other Results Microbiology Date/Time Source Procedure Growth Status 05/06/17 21:35 Urine Clean Catch Urine Culture - Final NO GROWTH IN 48 HOURS. Complete Objective Remarks Drips: Fentanyl Versed Propofol GENERAL: Obese female who is intubated, heavily sedated SKIN: Warm and dry. HEAD: Atraumatic. Normocephalic. EYES: Bilateral exophthalmus. Pupils equal and round, pinpoint and sluggishly reactive bilaterally ENT: No nasal bleeding or discharge. Orotracheally intubated NECK: Trachea midline. No JVD appreciated. No meningismus CARDIOVASCULAR: Regular rate and rhythm, sinus rhythm on the monitor with rate in the 70s. RESPIRATORY: ACV tidal volume 550/rate 16/P5. Breath sounds are equal bilaterally without wheezes Rales or rhonchi. GASTROINTESTINAL: Abdomen protuberant soft. No appreciable tenderness rebound or guarding. Bowel sounds are present. : Benoit catheter is in place MUSCULOSKELETAL: Extremities without clubbing, cyanosis, or edema. No obvious deformities. NEUROLOGICAL: Intubated sedated. No spontaneous eye opening I did not notice any spontaneous movements. Very slight withdrawal to pain A/P Problem List: (1) Chronic systolic heart failure ICD Code: I50.22 - Chronic systolic (congestive) heart failure Status: Chronic (2) Exophthalmos of both eyes ICD Code: H05.20 - Unspecified exophthalmos Status: Chronic (3) HTN (hypertension) ICD Code: I10 - Essential (primary) hypertension Status: Chronic (4) HLD (hyperlipidemia) ICD Code: E78.5 - Hyperlipidemia, unspecified Status: Chronic (5) Cardiogenic shock ICD Code: R57.0 - Cardiogenic shock Status: Acute (6) Acute respiratory failure with hypercapnia ICD Code: J96.02 - Acute respiratory failure with hypercapnia Status: Acute (7) Obesity (BMI 30-39.9) ICD Code: E66.9 - Obesity, unspecified Status: Chronic (8) CHF (congestive heart failure) ICD Code: I50.9 - CHF (congestive heart failure) Status: Acute (9) Bipolar disorder ICD Code: F31.9 - Bipolar affective disorder Status: Chronic (10) COPD (chronic obstructive pulmonary disease) ICD Code: J44.9 - Chronic obstructive pulmonary disease Status: Chronic (11) Tobacco abuse ICD Code: Z72.0 - Tobacco use Status: Chronic Assessment and Plan NEURO/PSYCH: Acute anoxic encephalopathy Bipolar disorder Obtained CT brain - negative. Dr. Brandt held sedation to assess neuro exam to allow for decision regarding induced therapeutic hypothermia. Patient with PEA arrest but no apparent contraindication to induced therapeutic hypothermia so initiated at 0700 05/07/17, completed 05/08/17 Daughter consented and placed heat exchange catheter No evidence of neurologic improvement yet Obtained Depakote level. 48. Was on Depakote for bipolar. Holding Depakote for now. Ammonia level increased. Lactulose 30 daily. Repeat ammonia level. Neg urine drug screen, APAP, ASA level. Carboxyhemoglobin level mildly elevated, may be secondary to tobacco abuse. Hold neurontin 100 day. Hold Wellbutrin XL. EEG shows severe encephalopathy, burst suppression pattern. Repeat EEG off sedation, neuro consult Propofol/fentanyl/Versed for analgosedation. Off Nimbex RESP: Acute hypercapnic respiratory failure COPD Tobacco abuse ACV tidal volume 550/rate 16/P5/F I/O to 60%. Ventilator bundle. DuoNeb q6 hours. Albuterol q2 hours prn. No Wheezing No Vent weaning until mental status improved CV: PEA cardiac arrest Post cardiac arrest syndrome with shock Chronic systolic heart failure with ejection fraction 15-20% (25-30 on echo today) Nonobstructive Coronary artery disease Essential Hypertension Hyperlipidemia Holding home antihypertensives due to hypotension (carvedilol 6.25 mill grams by mouth twice a day, Diovan 160 mg by mouth daily ) Serial lactic acid. Artline placed for hemodynamic monitoring. EKG normal sinus rhythm rate of 99. No apparent acute ischemia. Follow-up serial EKGs and cardiac markers-negative. 2-D echo EF 25-30% Etiology of cardiac arrest unclear. Most likely due to hypercapnia and respiratory acidosis - though her presentation was not remarkable for wheezing. Cardiology Dr. Reeves Resumed ASA after head CT resulted. Holding statin due to elevated LFTs. No betablocker or obie-I due to hypotension. GI: GERD Transaminitis, probable ischemic hepatopathy. Orogastric tube to low intermittent and wall suction. Output is nonbloody, no coffee grounds. RUQ us-fatty liver, hepatitis panel pending FEN/RENAL: MARQUEZ Lactic acidemia Hyperphosphatemia Benoit in place. Monitor intake and output. Monitor electrolytes and replace as indicated. Hold home NSAID's. Creat stable ID: UTI Received Zosyn and vancomycin in the emergency department. Urine and blood cultures have been sent. Follow-up cultures Continue Zosyn. HEME: No acute hematologic issues. ENDO: Diabetes mellitus with acute hyperglycemia Hold metformin, glipizide, lantus. Expect hyperglycemia to worsen during cooling. Insulin drip algorithm #2. Thyroid studies-essentially euthyroid PROPH: Sq heparin for DVT prophylaxis. Famotidine for stress ulcer prophylaxis and history of GERD ACCESS: Right femoral art line placed by ED physician 05/06/17, removed. L femoral heat exchange catheter and L femoral art line placed 05/07/17 Next of kin is Cheyanne, her only daughter. She is not . Cheyanne lives in [place]. Has been informed of risk of anoxic brain injury and discussed rationale for induced therapeutic hypothermia. Dr. Brandt Discussed with Dr. Morrison Critical care time 35 minutes exclusive of separately billable procedures. Full code Problem Qualifiers (1) HTN (hypertension): Qualified Codes: I10 - Essential (primary) hypertension Jaqueline Umanzor MD May 09, 2017 11:03
--- NOTE | 2017-05-09 14:18 | PD.CARD.PN ---
Subjective Subjective Remarks intubated, unresponsive 3 hours off sedation Objective Medications Current Medications Medications (Trade) Dose Ordered Sig/Scarlett Route Start Time Stop Time Status Last Admin Propofol 100 ml @ 3.9 mls/hr TITRATE PRN IV 05/06/17 21:30 05/09/17 04:10 Fentanyl Citrate 250 ml @ 5 mls/hr TITRATE PRN IV 05/06/17 21:30 05/08/17 22:23 (Brethine Inj) 1 mg UNSCH PRN SQ 05/06/17 22:45 Sodium Chloride 1,000 ml @ 100 mls/hr Q10H IV 05/06/17 23:28 Future Hold 05/07/17 20:07 (Tylenol) 650 mg Q6H PRN PO 05/06/17 23:30 05/09/17 07:58 (fentaNYL INJ) 50 mcg Q1H PRN IV PUSH 05/06/17 23:30 (Zofran Inj) 4 mg Q6H PRN IV PUSH 05/06/17 23:30 (Duoneb Neb) 1 ampule Q6HR NEB INH 05/07/17 04:00 05/09/17 03:31 (Albuterol Neb) 2.5 mg Q2HR NEB PRN INH 05/06/17 23:30 Miscellaneous Information 1 Q361D XX 05/06/17 23:30 (Chlorhexidine 2% Cloth) 3 pack Taper DAILY@04 TOP 05/07/17 04:00 05/03/18 03:59 05/08/17 23:18 (Chlorhexidine 2% Cloth) 3 pack UNSCH PRN TOP 05/06/17 23:30 (Aggie-Colace) 1 tab BID PO 05/07/17 09:00 05/09/17 07:58 (Milk Of Magnesia Liq) 30 ml Q12H PRN PO 05/06/17 23:30 (Senokot) 17.2 mg Q12H PRN PO 05/06/17 23:30 (Dulcolax Supp) 10 mg DAILY PRN RECTAL 05/06/17 23:30 (Peridex 0.12% Liq) 15 ml BID@08,20 MT 05/07/17 08:00 05/09/17 07:59 (Pepcid Inj) 10 mg Q12H IV PUSH 05/07/17 06:00 05/09/17 04:10 (Ativan Inj) 1 mg Q1H PRN IV PUSH 05/07/17 04:30 (Versed Inj) 2 mg Q1H PRN IV PUSH 05/07/17 04:30 Midazolam HCl 100 ml @ 2 mls/hr TITRATE PRN IV 05/07/17 04:30 05/09/17 00:01 Cisatracurium Besylate 100 mg/ Sodium Chloride 250 ml @ 50.73 mls/ hr TITRATE PRN IV 05/07/17 05:00 05/08/17 11:32 (Lacrilube Opht Oint) 1 applic Q4H PRN EACH EYE 05/07/17 04:30 05/08/17 19:37 (NS Flush) 2 ml BID IV FLUSH 05/07/17 09:00 05/09/17 07:58 (NS Flush) 2 ml UNSCH PRN IV FLUSH 05/07/17 04:30 Miscellaneous Information 0 ml @ 0 mls/hr UNSCH IV 05/07/17 04:30 (Heparin Inj) 5,000 units Q12H SQ 05/07/17 05:00 05/09/17 04:10 Norepinephrine Bitartrate 4 mg/ Sodium Chloride 250 ml @ 7.5 mls/hr TITRATE PRN IV 05/07/17 05:15 05/09/17 05:08 Valproate Sodium 500 mg/Sodium Chloride 105 ml @ 105 mls/hr Q24H IV 05/07/17 09:00 Future Hold 05/07/17 08:50 (Lacrilube Opht Oint) 1 applic Q12HR EACH EYE 05/07/17 09:00 05/09/17 07:57 (Versed Inj) 2 mg Q15M PRN IV PUSH 05/07/17 08:15 (Ecotrin Ec) 81 mg DAILY PO 05/08/17 09:00 05/09/17 07:58 Potassium Chloride 100 ml @ 50 mls/hr Q2H PRN IV 05/07/17 08:15 Potassium Chloride 100 ml @ 50 mls/hr Q2H PRN IV 05/07/17 08:15 (K-Lyte Cl Eff) 50 meq UNSCH PRN PO 05/07/17 08:15 Potassium Chloride 100 ml @ 25 mls/hr UNSCH PRN IV 05/07/17 08:15 05/07/17 17:17 Potassium Chloride 100 ml @ 50 mls/hr Q2H PRN IV 05/07/17 08:15 Magnesium Sulfate 4 gm/Sodium Chloride 100 ml @ 50 mls/hr UNSCH PRN IV 05/07/17 08:15 (Mag-Ox) 800 mg UNSCH PRN PO 05/07/17 08:15 Magnesium Sulfate 2 gm/Sodium Chloride 100 ml @ 50 mls/hr UNSCH PRN IV 05/07/17 08:15 (K-Phos) 2,000 mg Q4H PRN PO 05/07/17 08:15 Sodium Phosphate 30 mmol/Sodium Chloride 250 ml @ 42 mls/hr UNSCH PRN IV 05/07/17 08:15 05/07/17 10:37 (K-Phos) 2,000 mg UNSCH PRN PO/TUBE 05/07/17 08:15 Potassium Phosphate 30 mmol/ Sodium Chloride 260 ml @ 42 mls/hr UNSCH PRN IV 05/07/17 08:15 Piperacillin Sod/ Tazobactam Sod 50 ml @ 100 mls/hr Q6H IV 05/07/17 09:00 05/09/17 07:57 (Lactulose Liq) 30 ml DAILY OG-TUBE 05/07/17 09:00 05/09/17 07:57 (D50w (Vial) Inj) 50 ml UNSCH PRN IV PUSH 05/08/17 00:30 (Glucagon Inj) 1 mg UNSCH PRN OTHER 05/08/17 00:30 (NovoLOG SUPPLEMENTAL SCALE) 1 Q4H SQ 05/08/17 00:30 05/08/17 08:07 Midazolam HCl 100 ml @ 2 mls/hr TITRATE PRN IV 05/09/17 00:15 Vital Signs / I&O Vital Signs Date Time Temp Pulse Resp B/P (MAP) Pulse Ox O2 Delivery O2 Flow Rate FiO2 05/09/17 12:00 40 05/09/17 12:00 99.5 118 16 105/54 (71) 99 109/68 (82) 05/09/17 12:00 118 05/09/17 11:57 100 40 05/09/17 10:00 127 05/09/17 09:23 100 40 05/09/17 08:00 40 05/09/17 08:00 124 05/09/17 08:00 100.1 124 16 90/55 (67) 99 86/57 (67) 05/09/17 06:00 97 05/09/17 05:08 104 95/55 05/09/17 04:32 99 40 05/09/17 04:00 108 05/09/17 04:00 98.6 108 14 97/59 (72) 99 92/56 (68) 05/09/17 04:00 40 05/09/17 02:00 112 05/09/17 01:19 108 89/50 05/09/17 00:00 98.0 106 14 99/59 (72) 99 99/57 (71) 05/09/17 00:00 106 05/09/17 00:00 40 05/08/17 23:40 97 40 05/08/17 22:00 108 05/08/17 20:10 100 40 05/08/17 20:00 96.0 90 14 130/69 (89) 99 05/08/17 20:00 90 05/08/17 20:00 40 05/08/17 18:00 83 05/08/17 18:00 95.9 83 16 116/65 (82) 100 127/69 (88) 05/08/17 17:00 95.4 80 16 114/70 (85) 100 132/71 (91) 05/08/17 16:00 94.8 77 16 105/55 (72) 99 109/62 (78) 05/08/17 16:00 94.8 77 16 109/62 (78) 99 05/08/17 16:00 40 05/08/17 16:00 77 05/08/17 15:00 94.5 78 16 105/64 (78) 100 119/67 (84) 05/08/17 14:38 100 40 I/O 05/08/17 05/08/17 05/08/17 05/09/17 05/09/17 05/09/17 07:00 15:00 23:00 07:00 15:00 23:00 Intake Total 1261 ml 378 ml 563 ml Output Total 605 ml 123 ml 749 ml 350 ml Balance 656 ml 255 ml -186 ml -350 ml Intake IV Total 1261 ml 378 ml 503 ml Tube Irrigant 60 ml Output Urine Total 305 ml 123 ml 149 ml 150 ml Gastric Drainage Total 300 ml 600 ml 200 ml # Bowel Movements 0 Physical Exam GENERAL: SKIN: Warm and dry. HEAD: Normocephalic. EYES: No scleral icterus. No injection or drainage. NECK: Supple, trachea midline. No JVD or lymphadenopathy. CARDIOVASCULAR: Regular rate and rhythm without murmurs, gallops, or rubs. RESPIRATORY: Breath sounds equal bilaterally. No accessory muscle use. GASTROINTESTINAL: Abdomen soft, non-tender, nondistended. MUSCULOSKELETAL: No cyanosis, or edema. BACK: Nontender without obvious deformity. No CVA tenderness. Laboratory Laboratory Tests Test 05/09/17 05:30 White Blood Count 9.0 TH/MM3 Red Blood Count 3.44 MIL/MM3 Hemoglobin 10.7 GM/DL Hematocrit 32.1 % Mean Corpuscular Volume 93.6 FL Mean Corpuscular Hemoglobin 31.2 PG Mean Corpuscular Hemoglobin Concent 33.3 % Red Cell Distribution Width 14.0 % Platelet Count 121 TH/MM3 Mean Platelet Volume 9.9 FL Neutrophils (%) (Auto) 83.3 % Lymphocytes (%) (Auto) 10.4 % Monocytes (%) (Auto) 5.3 % Eosinophils (%) (Auto) 0.4 % Basophils (%) (Auto) 0.6 % Neutrophils # (Auto) 7.5 TH/MM3 Lymphocytes # (Auto) 0.9 TH/MM3 Monocytes # (Auto) 0.5 TH/MM3 Eosinophils # (Auto) 0.0 TH/MM3 Basophils # (Auto) 0.1 TH/MM3 CBC Comment DIFF FINAL Differential Comment Blood Urea Nitrogen 16 MG/DL Creatinine 1.09 MG/DL Random Glucose 203 MG/DL Total Protein 6.1 GM/DL Albumin 2.4 GM/DL Calcium Level 8.0 MG/DL Phosphorus Level 4.1 MG/DL Magnesium Level 1.5 MG/DL Alkaline Phosphatase 87 U/L Aspartate Amino Transf (AST/SGOT) 64 U/L Alanine Aminotransferase (ALT/SGPT) 88 U/L Total Bilirubin 0.6 MG/DL Sodium Level 144 MEQ/L Potassium Level 3.8 MEQ/L Chloride Level 111 MEQ/L Carbon Dioxide Level 21.7 MEQ/L Anion Gap 11 MEQ/L Estimat Glomerular Filtration Rate 63 ML/MIN Assessment and Plan Problem List: (1) CAD (coronary artery disease) ICD Codes: I25.10 - Atherosclerotic heart disease of [place] coronary artery without angina pectoris (2) CHRONIC OBSTRUCTIVE PULMON DISEASE W ACUTE LOWER RESP INFCT ICD Codes: J44.0 - CHRONIC OBSTRUCTIVE PULMON DISEASE W ACUTE LOWER RESP INFCT Status: Acute (3) Cardiomyopathy ICD Codes: I42.9 - Cardiomyopathy Status: Acute (4) Cardiopulmonary arrest ICD Codes: I46.9 - Cardiac arrest, cause unspecified Status: Acute (5) Diabetes mellitus ICD Codes: E11.9 - Type 2 diabetes mellitus without complications Status: Acute Assessment and Plan 1.) Cardiomyopathy - euvolemic, obie and beta navya held due to recent cardiogenic shock and uncertain neurologic status 2.) CAD - continue aspirin, statin held due to shock liver and elevated lfts Aguila Early MD May 09, 2017 14:18
[2017-05-09] MEDS ORDERED: METOPROLOL TARTRATE 5 MG/5 ML VIAL ONE (19:00)
[2017-05-09] MEDS: CHLORHEXIDINE GLUCONATE 2 % 1 PACK (2 CLOTHS) TOP SCH (21:49)
[2017-05-10] VITALS (18 sets, daily range): BP systolic 151–197; BP diastolic 68–97; PULSE 97–119; RESP 16–17; TEMP 99.3–100.1; O2SAT 96–100
[2017-05-10] MEDS: INSULIN ASPART SUPPLEMENTAL SCALE SQ SCH ×5 (00:30→19:58)
[2017-05-10] MEDS: PIPERACIL-TAZO 3.375 GM PREMIX 50 ML IV SCH ×4 (03:54→19:57)
[2017-05-10] MEDS: levETIRAcetam 1000 MG INJ 100 ML IV SCH ×3 (03:58→19:57)
[2017-05-10] MEDS: RESP: ALBUTEROL 2.5 MG/IPRATROPIUM 0.5 MG NEB (SCH) INH ×4 (04:00→21:17)
[2017-05-10 04:26] LABS: AUTOMATED NEUTROPHIL # 7.6 TH/MM3 (1.8-7.7); BASOPHIL # 0.1 TH/MM3 (0-0.2); BASOPHIL % 0.9 % (0.0-2.0); EOSINOPHIL % 0.2 % (0.0-4.0); HEMATOCRIT 33.4 % (35.0-46.0); HEMO FLAGS DIFF FINAL; LYMPH % 10.6 % (9.0-44.0); MEAN CELL VOLUME 93.1 FL (80.0-100.0); MEAN CORPUSCULAR HEMOGLOBIN 30.4 PG (27.0-34.0); MEAN CORPUSCULAR HGB CONC 32.7 % (32.0-36.0); MONO % 6.7 % (0.0-8.0); NEUT % 81.6 % (16.0-70.0); PLATELET COUNT 108 TH/MM3 (150-450); RED BLOOD COUNT 3.59 MIL/MM3 (4.00-5.30); RED CELL DISTRIBUTION WIDTH 14.2 % (11.6-17.2); WHITE BLOOD COUNT 9.3 TH/MM3 (4.0-11.0)
[2017-05-10 05:01] LABS: ANION GAP 11 MEQ/L (5-15); AST (GOT) 68 U/L (15-37); BICARBONATE 22.4 MEQ/L (21.0-32.0); BLOOD UREA NITROGEN 15 MG/DL (7-18); CHLORIDE 112 MEQ/L (98-107); GLOMERULAR FILTRATION RATE 65 ML/MIN (>89); POTASSIUM 3.9 MEQ/L (3.5-5.1); SODIUM (NA) 145 MEQ/L (136-145)
[2017-05-10 05:02] LABS: ALT (GPT) 70 U/L (10-53)
[2017-05-10 05:04] LABS: ALKALINE PHOSPHATASE 95 U/L (45-117); TOTAL BILIRUBIN ADULT 0.9 MG/DL (0.2-1.0)
[2017-05-10] MEDS: HEPARIN SODIUM - SQ 10,000 UNITS/ML VIAL SQ SCH ×2 (06:03→16:01)
[2017-05-10] MEDS: FAMOTIDINE 20 MG/2 ML VIAL IV PUSH SCH ×2 (06:04→16:08)
--- NOTE | 2017-05-10 06:12 | RADRPT ---
EXAM DATE/TIME: 05/10/2017 04:41 [place] COMPARISON: CHEST SINGLE AP, May 08, 2017, 3:44. INDICATIONS : Short of breath. MEDICAL HISTORY : Diabetes mellitus type II. Hypertension Hyperlipidemia SURGICAL HISTORY : Cholecystectomy. ENCOUNTER: Subsequent ACUITY: 1 week PAIN SCORE: 0/10 LOCATION: Bilateral chest FINDINGS: The cardiac silhouette is enlarged in transverse diameter. There are findings of congestive heart felix lure with interstitial and alveolar opacity bilaterally. This is new when compared with the prior exa m. Support lines and tubes are in satisfactory position. CONCLUSION: 1. Cardiomegaly and findings of congestive heart failure. This is new when compared with the prior ex am. Laith Coe MD on May 10, 2017 at 6:10 Board Certified Radiologist. This report was verified electronically.
[2017-05-10] MEDS: CHLORHEXIDINE 0.12% (ORAL KIT) 15 ML CUP MT SCH ×2 (08:00→19:57)
[2017-05-10] MEDS: LACTULOSE SYRUP 20 GM/30 ML CUP OG-TUBE SCH (08:26)
[2017-05-10] MEDS: SODIUM CHLORIDE 0.9% FLUSH 10 ML FLUSH IV FLUSH SCH ×2 (08:26→19:58)
[2017-05-10] MEDS: ASPIRIN EC 81 MG TABEC PO SCH (08:26)
[2017-05-10] MEDS: DOCUSATE SODIUM 50 MG/SENNA 8.6 MG TAB PO SCH ×2 (08:27→19:58)
[2017-05-10] MEDS ORDERED: LABETALOL HCL 100 MG/20 ML VIAL ONE (08:33)
--- NOTE | 2017-05-10 08:43 | PD.CONS ---
History of Present Illness Service Neurology Consult Requested By [facility] Reason for Consult confusion Primary Care Physician Unknown History of Present Illness 56-year-old female with past medical history of hypertension, chronic systolic heart failure, diabetes, COPD bipolar disorder, seizure disorder who presented to [facility] emergency department via E VAC following cardiac arrest. [facility] was originally called for shortness of breath and when they arrived patient was unresponsive and in PEA. Duration of prehospital CPR is unclear. in icu intubated and unresponsive. underwent hypothermia protocol on admit. completed yesterday. ccm attending felt she may be having non-convulsive sz's and placed pt on versed gtt. pt unable to give any hx. ct brain negative. Past Family Social History Allergies: Coded Allergies: No Known Allergies (Verified , 05/06/17) Past Medical History- per emr; pt unable to give COPD Diabetes Hypertension Chronic systolic heart failure with an ejection fraction of 15-20% GERD Bipolar disorder Hyperlipidemia Allergic rhinitis Peripheral neuropathy Past Surgical History Cholecystectomy Bilateral tubal ligation Cardiac catheterization 03/27/14 - EF 15-20%. 10-20% LAD lesion, 20% ostial stenosis of the left main, 20% OM, 30-40% RCA. Reported Medications Cetirizine 10 mill grams by mouth daily Atrovent 2 puffs inhaled every 6 hours as needed for shortness of breath Albuterol 2 puffs inhaled every 4 hours as needed Zocor 40 mill grams by mouth daily Carvedilol 6.25 mill grams by mouth twice a day Diovan 160 mill grams by mouth daily Aspirin 81 mg by mouth daily Diclofenac 75 mill grams by mouth to twice a day Depakote ER 500 mg by mouth daily Gabapentin 100 mg by mouth daily at bedtime Wellbutrin XL unknown strength daily Lasix 20 mg by mouth daily Fluticasone 50 g in each nares twice a day Metformin 1000 g by mouth twice a day Lantus Glipizide 5 mill grams by mouth twice a day Family History Unable to obtain from patient due to clinical condition. Social History Unable to obtain directly from patient due to clinical condition EMR reviewed and she reportedly smokes a pack of cigarettes per day Review of Systems All other ROS: Unable to obtain Past Family Social History Allergies: Coded Allergies: No Known Allergies (Verified , 05/06/17) Active Ordered Medications Current Medications Medications (Trade) Dose Ordered Sig/Scarlett Route Start Time Stop Time Status Last Admin Propofol 100 ml @ 3.9 mls/hr TITRATE PRN IV 05/06/17 21:30 05/09/17 04:10 Fentanyl Citrate 250 ml @ 5 mls/hr TITRATE PRN IV 05/06/17 21:30 05/08/17 22:23 (Brethine Inj) 1 mg UNSCH PRN SQ 05/06/17 22:45 Sodium Chloride 1,000 ml @ 100 mls/hr Q10H IV 05/06/17 23:28 Future Hold 05/07/17 20:07 (Tylenol) 650 mg Q6H PRN PO 05/06/17 23:30 05/09/17 15:41 (fentaNYL INJ) 50 mcg Q1H PRN IV PUSH 05/06/17 23:30 (Zofran Inj) 4 mg Q6H PRN IV PUSH 05/06/17 23:30 (Duoneb Neb) 1 ampule Q6HR NEB INH 05/07/17 04:00 05/09/17 03:31 (Albuterol Neb) 2.5 mg Q2HR NEB PRN INH 05/06/17 23:30 Miscellaneous Information 1 Q361D XX 05/06/17 23:30 (Chlorhexidine 2% Cloth) 3 pack Taper DAILY@04 TOP 05/07/17 04:00 05/03/18 03:59 05/09/17 21:49 (Chlorhexidine 2% Cloth) 3 pack UNSCH PRN TOP 05/06/17 23:30 (Aggie-Colace) 1 tab BID PO 05/07/17 09:00 05/09/17 07:58 (Milk Of Magnesia Liq) 30 ml Q12H PRN PO 05/06/17 23:30 (Senokot) 17.2 mg Q12H PRN PO 05/06/17 23:30 (Dulcolax Supp) 10 mg DAILY PRN RECTAL 05/06/17 23:30 (Peridex 0.12% Liq) 15 ml BID@08,20 MT 05/07/17 08:00 05/10/17 08:00 (Pepcid Inj) 10 mg Q12H IV PUSH 05/07/17 06:00 05/10/17 06:04 (Ativan Inj) 1 mg Q1H PRN IV PUSH 05/07/17 04:30 (Versed Inj) 2 mg Q1H PRN IV PUSH 05/07/17 04:30 Midazolam HCl 100 ml @ 2 mls/hr TITRATE PRN IV 05/07/17 04:30 05/09/17 19:07 Cisatracurium Besylate 100 mg/ Sodium Chloride 250 ml @ 50.73 mls/ hr TITRATE PRN IV 05/07/17 05:00 05/08/17 11:32 (Lacrilube Opht Oint) 1 applic Q4H PRN EACH EYE 05/07/17 04:30 05/08/17 19:37 (NS Flush) 2 ml BID IV FLUSH 05/07/17 09:00 05/10/17 08:26 (NS Flush) 2 ml UNSCH PRN IV FLUSH 05/07/17 04:30 Miscellaneous Information 0 ml @ 0 mls/hr UNSCH IV 05/07/17 04:30 (Heparin Inj) 5,000 units Q12H SQ 05/07/17 05:00 05/10/17 06:03 Norepinephrine Bitartrate 4 mg/ Sodium Chloride 250 ml @ 7.5 mls/hr TITRATE PRN IV 05/07/17 05:15 05/09/17 05:08 Valproate Sodium 500 mg/Sodium Chloride 105 ml @ 105 mls/hr Q24H IV 05/07/17 09:00 Future Hold 05/07/17 08:50 (Lacrilube Opht Oint) 1 applic Q12HR EACH EYE 05/07/17 09:00 05/09/17 21:49 (Versed Inj) 2 mg Q15M PRN IV PUSH 05/07/17 08:15 (Ecotrin Ec) 81 mg DAILY PO 05/08/17 09:00 05/10/17 08:26 Potassium Chloride 100 ml @ 50 mls/hr Q2H PRN IV 05/07/17 08:15 Potassium Chloride 100 ml @ 50 mls/hr Q2H PRN IV 05/07/17 08:15 (K-Lyte Cl Eff) 50 meq UNSCH PRN PO 05/07/17 08:15 Potassium Chloride 100 ml @ 25 mls/hr UNSCH PRN IV 05/07/17 08:15 05/07/17 17:17 Potassium Chloride 100 ml @ 50 mls/hr Q2H PRN IV 05/07/17 08:15 Magnesium Sulfate 4 gm/Sodium Chloride 100 ml @ 50 mls/hr UNSCH PRN IV 05/07/17 08:15 (Mag-Ox) 800 mg UNSCH PRN PO 05/07/17 08:15 Magnesium Sulfate 2 gm/Sodium Chloride 100 ml @ 50 mls/hr UNSCH PRN IV 05/07/17 08:15 (K-Phos) 2,000 mg Q4H PRN PO 05/07/17 08:15 Sodium Phosphate 30 mmol/Sodium Chloride 250 ml @ 42 mls/hr UNSCH PRN IV 05/07/17 08:15 05/07/17 10:37 (K-Phos) 2,000 mg UNSCH PRN PO/TUBE 05/07/17 08:15 Potassium Phosphate 30 mmol/ Sodium Chloride 260 ml @ 42 mls/hr UNSCH PRN IV 05/07/17 08:15 Piperacillin Sod/ Tazobactam Sod 50 ml @ 100 mls/hr Q6H IV 05/07/17 09:00 05/10/17 08:26 (Lactulose Liq) 30 ml DAILY OG-TUBE 05/07/17 09:00 05/09/17 07:57 (D50w (Vial) Inj) 50 ml UNSCH PRN IV PUSH 05/08/17 00:30 (Glucagon Inj) 1 mg UNSCH PRN OTHER 05/08/17 00:30 (NovoLOG SUPPLEMENTAL SCALE) 1 Q4H SQ 05/08/17 00:30 05/08/17 08:07 Midazolam HCl 100 ml @ 2 mls/hr TITRATE PRN IV 05/09/17 00:15 Levetriacetam 100 ml @ 400 mls/hr Q12HR IV 05/10/17 02:15 05/10/17 08:26 (Trandate Inj) 20 mg Q4H PRN IV 05/10/17 08:45 Exam I&O / VS Vital Signs Date Time Temp Pulse Resp B/P (MAP) Pulse Ox O2 Delivery O2 Flow Rate FiO2 05/10/17 08:21 97 45 05/10/17 06:00 111 05/10/17 04:04 99 55 05/10/17 04:00 114 05/10/17 04:00 55 05/10/17 04:00 100.1 114 16 161/74 (103) 100 169/84 (112) 05/10/17 02:00 113 05/10/17 00:00 65 05/10/17 00:00 99.5 110 16 151/68 (95) 98 153/76 (101) 05/10/17 00:00 110 05/09/17 23:47 98 60 05/09/17 22:00 111 05/09/17 20:06 100 65 05/09/17 20:00 65 05/09/17 20:00 112 05/09/17 20:00 99.5 112 16 131/61 (84) 100 131/68 (89) 05/09/17 19:10 113 05/09/17 19:00 178 05/09/17 18:55 100 100 05/09/17 18:00 116 136/70 (92) 05/09/17 18:00 117 05/09/17 16:45 16 05/09/17 16:00 100.3 118 16 125/60 (81) 96 137/75 (95) 05/09/17 16:00 122 05/09/17 16:00 40 05/09/17 15:23 98 40 05/09/17 14:00 120 05/09/17 12:00 40 05/09/17 12:00 99.5 118 16 105/54 (71) 99 109/68 (82) 05/09/17 12:00 118 05/09/17 11:57 100 40 05/09/17 10:00 127 05/09/17 09:23 100 40 Exam Comments intubated on versed gtt, ou 2.5mm not appreciably reactive, mild corneal, blunted oculocephalics, no grimace, no motor activity Review/Management Diagnosis/Plan: (1) Anoxic encephalopathy ICD Codes: G93.1 - Anoxic brain damage, not elsewhere classified Status: Acute Plan: recs f/u eeg repeat neuro exam off versed after 24-48 hrs d/w rn (2) PEA (Pulseless electrical activity) ICD Codes: I46.9 - Cardiac arrest, cause unspecified Status: Acute (3) Acute respiratory failure with hypercapnia ICD Codes: J96.02 - Acute respiratory failure with hypercapnia Status: Acute (4) Chronic systolic heart failure ICD Codes: I50.22 - Chronic systolic (congestive) heart failure Status: Chronic Panfilo Solitario MD May 10, 2017 08:43
[2017-05-10] MEDS ORDERED: LABETALOL HCL 200 MG/40 ML VIAL IV PRN (08:45)
[2017-05-10] MEDS ORDERED: LABETALOL HCL 100 MG/20 ML VIAL IV PRN (10:15)
[2017-05-10] MEDS ORDERED: Vancomycin Consult Pharmacy 1 EA OTHER SCH (10:30)
[2017-05-10] MEDS ORDERED: VANCOMYCIN INJ 1,250 MG in SODIUM CHLOR 0.9% 250 ML INJ 250 ML IV ONE (10:30)
[2017-05-10] MEDS: DILTIAZEM 125 MG/NS 100 ML IV PRN ×2 (10:35)
[2017-05-10] MEDS: ARTIFICIAL TEARS OPTH OINT 3.5 APPLIC/3.5 GM TUBO EACH EYE SCH ×2 (10:36→19:58)
--- NOTE | 2017-05-10 10:36 | HHI.CCPN ---
Subjective Remarks/Hospital Course 56-year-old female with past medical history of hypertension, chronic systolic heart failure, diabetes, COPD bipolar disorder, seizure disorder who presented to [facility] emergency department via E [facility] following cardiac arrest. [facility] was originally called for shortness of breath and when they arrived patient was unresponsive and in PEA. Combitube was placed. CPR was initiated and patient was administered epinephrine 4, 1 amp bicarbonate, Narcan 2 mg prior to arrival via left tibial I/O. Blood glucose was 334. Exact duration of prehospital CPR is unclear. Combitube was removed and she was intubated upon arrival. Patient had ROSC 5 minutes after arrival. She received additional epinephrine 2 in the ED. She also received 1 L normal saline bolus, vancomycin, Zosyn in the ED. Critical care medicine is consulted for admission. EKG has no acute ischemia. SUBJ 05/07: Intubated sedated neuromuscularly paralyzed. Induced hypothermia initiated at 7 AM, 2-D echo shows EF 25-30%, mild to moderate MR. Serial troponins negative 05/08: Remains neuromuscularly paralyzed. Hypothermia will be completed by the known and rewarming was started. Remains off inotropes and pressors 05/09: Hypothermia protocol completed, placed overnight on Versed also in addition to propofol and fentanyl for tachycardia and asynchrony. Currently patient while on sedation do not open eyes with very slight withdrawal to pain 05/10: Developed Afib with RVR yesterday with HR in 200's DC cardioverted at night by Dr. Chu. Placed back on Versed. RN reports paroxysmal A fib. EEG pending at this time for subclinical sz. EEG 05/07 burst suppression pattern. Neuro prognosis poor Objective Vital Signs Date Time Temp Pulse Resp B/P (MAP) Pulse Ox O2 Delivery O2 Flow Rate FiO2 05/10/17 10:11 96 40 05/10/17 06:00 111 05/10/17 04:00 100.1 16 161/74 (103) 169/84 (112) 05/07/17 02:00 Auto-Vent Intake and Output 05/10/17 05/10/17 05/11/17 08:00 16:00 00:00 Intake Total 262 ml Output Total 100 ml Balance 162 ml Result Diagram: 05/10/17 0408 05/10/17 0408 Objective Remarks Drips: Versed GENERAL: Obese female who is intubated, heavily sedated SKIN: Warm and dry. HEAD: Atraumatic. Normocephalic. EYES: Bilateral exophthalmus. Pupils equal and round, pinpoint and sluggishly reactive bilaterally ENT: No nasal bleeding or discharge. Orotracheally intubated NECK: Trachea midline. No JVD appreciated. No meningismus CARDIOVASCULAR: Regular rate and rhythm, sinus rhythm on the monitor with rate in the 70s. Paroxysmal A Fib RESPIRATORY: ACV tidal volume 550/rate 16/P5. Breath sounds are equal bilaterally without wheezes Rales or rhonchi. GASTROINTESTINAL: Abdomen protuberant soft. No appreciable tenderness rebound or guarding. Bowel sounds are present. : Benoit catheter is in place MUSCULOSKELETAL: Extremities without clubbing, cyanosis, or edema. No obvious deformities. NEUROLOGICAL: Intubated sedated. No spontaneous eye opening, spontaneous movements. Very slight withdrawal to pain A/P Problem List: (1) Chronic systolic heart failure ICD Code: I50.22 - Chronic systolic (congestive) heart failure Status: Chronic (2) Exophthalmos of both eyes ICD Code: H05.20 - Unspecified exophthalmos Status: Chronic (3) HTN (hypertension) ICD Code: I10 - Essential (primary) hypertension Status: Chronic (4) HLD (hyperlipidemia) ICD Code: E78.5 - Hyperlipidemia, unspecified Status: Chronic (5) Cardiogenic shock ICD Code: R57.0 - Cardiogenic shock Status: Acute (6) Acute respiratory failure with hypercapnia ICD Code: J96.02 - Acute respiratory failure with hypercapnia Status: Acute (7) Obesity (BMI 30-39.9) ICD Code: E66.9 - Obesity, unspecified Status: Chronic (8) CHF (congestive heart failure) ICD Code: I50.9 - CHF (congestive heart failure) Status: Acute (9) Bipolar disorder ICD Code: F31.9 - Bipolar affective disorder Status: Chronic (10) COPD (chronic obstructive pulmonary disease) ICD Code: J44.9 - Chronic obstructive pulmonary disease Status: Chronic (11) Tobacco abuse ICD Code: Z72.0 - Tobacco use Status: Chronic Assessment and Plan NEURO/PSYCH: Acute anoxic encephalopathy Bipolar disorder Possible subclinical sz Dr. Brandt held sedation to assess neuro exam to allow for decision regarding induced therapeutic hypothermia. CT brain - negative. Patient with PEA arrest but no apparent contraindication to induced therapeutic hypothermia so initiated at 0700 05/07/17, completed 05/08/17 Daughter consented and placed heat exchange catheter No neurologic improvement yet. Neurology Dr. Solitario Obtained Depakote level. 48. Was on Depakote for bipolar. Will restart Depakote. Lactulose 30 daily. Ammonia level down to 31 Neg urine drug screen, APAP, ASA level. Carboxyhemoglobin level mildly elevated, may be secondary to tobacco abuse. Resumed Neurontin 100 day. Holding Wellbutrin XL. EEG shows severe encephalopathy, burst suppression pattern. Repeat EEG to rule out subclinical sz, neuro consult Versed gtt. Off Nimbex RESP: Acute hypercapnic respiratory failure COPD Tobacco abuse ACV tidal volume 550/rate 16/P5/F I/O to 60%. Ventilator bundle. DuoNeb q6 hours. Albuterol q2 hours prn. No Wheezing No Vent weaning until mental status improved CV: PEA cardiac arrest Post cardiac arrest syndrome with shock Afib with RVR Chronic systolic heart failure with ejection fraction 15-20% (25-30 on echo today) Nonobstructive Coronary artery disease Essential Hypertension Hyperlipidemia Holding home antihypertensives due to hypotension (carvedilol 6.25 mill grams by mouth twice a day, Diovan 160 mg by mouth daily ). Will restart coreg DCCV for Afib RVR with HR 200/min. Start Cardizem for paroxysmal A fib Serial lactic acid. EKG normal sinus rhythm rate of 99. No apparent acute ischemia. Follow-up serial EKGs and cardiac markers-negative. 2-D echo EF 25-30%. Cardiology Dr. Reeves Etiology of cardiac arrest unclear. Most likely due to hypercapnia and respiratory acidosis - though her presentation was not remarkable for wheezing. Resumed ASA after head CT resulted. Holding statin due to elevated LFTs. No betablocker or obie-I due to hypotension. GI: GERD Transaminitis, probable ischemic hepatopathy. Orogastric tube to low intermittent and wall suction. Output is nonbloody, no coffee grounds. RUQ us-fatty liver, hepatitis panel pending Start tube feeds with Glucerna FEN/RENAL: MARQUEZ Lactic acidemia Hyperphosphatemia Benoit in place. Monitor intake and output. Monitor electrolytes and replace as indicated. Hold home NSAID's. Creat stable ID: UTI Bacteremia with strep viridans, Coag neg staph, pleomorphic GPR Received Zosyn and vancomycin in the emergency department. Urine and blood cultures have been sent. Follow-up cultures Continue Zosyn. Resume vancomycin HEME: No acute hematologic issues. ENDO: Diabetes mellitus with acute hyperglycemia Hold metformin, glipizide, lantus. Expect hyperglycemia to worsen during cooling. Insulin drip algorithm #2. Thyroid studies-essentially euthyroid PROPH: Sq heparin for DVT prophylaxis. Famotidine for stress ulcer prophylaxis and history of GERD ACCESS: Right femoral art line placed by ED physician 05/06/17, removed. L femoral heat exchange catheter and L femoral art line placed 05/07/17 Next of kin is Cheyanne, her only daughter. She is not . Cheyanne lives in [place]. Has been informed of risk of anoxic brain injury and discussed rationale for induced therapeutic hypothermia. Dr. Brandt Discussed with Dr. Morrison Critical care time 35 minutes exclusive of separately billable procedures. ALT CODE. Palliative care consulted Problem Qualifiers (1) HTN (hypertension): Qualified Codes: I10 - Essential (primary) hypertension Jaqueline Umanzor MD May 10, 2017 10:36
--- NOTE | 2017-05-10 10:46 | PD.CONS ---
Consult Service Palliative Care Consult Requested By Dr. Umanzor . Primary Care Physician Unknown . Reason for Consultation a. To assist with evaluation and management of symptoms including: Encephalopathy, possible seizures b. To assist medical decision maker(s) with: better understanding of current medical conditions; weighing benefits/burdens of medical treatment options; making medical treatment decisions. . HPI History of Present Illness This 56-year-old female, with a past history of insulin-dependent diabetes, COPD with frequent hospital visits, coronary artery disease, cardiomyopathy (EF 15-20% in 2013), chronic back pain, and significant psychiatric diagnoses, has had numerous visits to the hospital over the past few years. She presented on the evening of 04/24/17 because of dyspnea, was placed on BiPAP for a time and treated for COPD, but then signed out AMA the following day. She followed up with a primary health clinic on 04/29/17 and again on 05/02/17 where new inhalers were initiated and she was felt to be relatively stable. On 05/06/17, she called 911 to say that she had worsening shortness of breath and she was subsequently found down, unresponsive, in PEA cardiac arrest by the first responders/Fire Department who started CPR.. The [facility] paramedics subsequently arrived and placed a Combitube and placed an intraosseous needle in the left tibia, then initiated ACLS protocol, and did get a return of spontaneous circulation briefly twice at the scene but then lost the pulse again ; it was another brief return of pulse en route to the hospital but it was again lost. At the time of arrival, she was again pulseless/PEA and remained in PEA for some additional minutes. An endotracheal tube was placed, resuscitation measures were continued, and eventually she had ROSC that has persisted. It is unclear just how long she was without spontaneous circulation: [facility] made contact with the patient about 12 minutes after the initial phone call , but CPR had been started prior to that by the FD (I am unable to tell when). The call came in via 911 and the ambulance was dispatched at 2028 hrs. The ambulance arrived on scene at 2038 hrs. However, Fire Department first responders were already engaged in CPR at that time so I'm not sure how long the patient was down. The patient had brief return of spontaneous circulation 3 times (twice at home and once en route), arriving without a pulse at the ED. Arrival at the emergency department was at 2110 hrs. Additional minutes of resuscitation were required until a final ROSC was realized. Nonetheless, the patient was unresponsive after resuscitation was finally complete, remaining so to the present time. It is likely that she had no brain perfusion for at least several minutes. In the emergency department, findings included: * Unresponsive * Temp 99.3 * Initial blood gas pH 7.28 * White count 10.0, hemoglobin 11.8 * Sodium 139, creatinine 1.57, GFR 41 * AST 107, ALT 127 * CT brain without acute findings * Chest x-ray with left base atelectasis versus consolidation * CT chest with no evidence of PE, but revealing bibasilar atelectasis versus consolidation The patient was felt to be a candidate for treatment via hypothermia, and the protocol was initiated, continuing for 24 hours after target temperatures were reached. An echocardiogram was completed, revealing an ejection fraction of 25- 30%. Serial troponins remained negative. On 05/07/17, and EEG was reported to show burst suppression pattern, implying severe encephalopathy. On 05/08/17, the patient remained unresponsive and was off pressors. On 05/09/17, the patient was off sedation for several hours and remained unresponsive. However, she had an episode of atrial fibrillation that was ultimately cardioverted, and she was placed back on a Versed infusion. There has been no obvious seizure activity. The patient has been afebrile until the past 24 hours when there are several recorded temperatures above 100. Palliative Care was consulted to assist with symptom management, and to enter into discussions with the patient's family regarding her current illnesses and problems, the prognosis, and the benefits and burdens of the various treatment options. . Function/Cognitive Trajectory Prior to this cardiac arrest, the patient's daughter reports that the patient was living alone, functioning independently. She did not drive a car, but had neighbors who would occasionally take her to the store. . Review of Systems ROS Limitations: Clinical Condition (information per daughter and medical records), Intubated, Altered Mental Status Constitutional: COMPLAINS OF: Fever (developed in the past 24 hours) Endocrine: DENIES: Polyuria Eyes: DENIES: Eye inflammation Ears, nose, mouth, throat: DENIES: Epistaxis Respiratory: COMPLAINS OF: Shortness of breath Cardiovascular: COMPLAINS OF: Syncope Gastrointestinal: DENIES: Bloody stools, Constipation, Diarrhea, Vomiting blood Genitourinary: DENIES: Hematuria Musculoskeletal: COMPLAINS OF: Back pain (history of chronic back pain) Integumentary: DENIES: Rash Hematologic/Lymphatics: DENIES: Lymphadenopathy Immunologic/Allergic: DENIES: Urticaria Neurologic: DENIES: Seizures Psychiatric: COMPLAINS OF: Anxiety, Depression Past Family Social History Coded Allergies: No Known Allergies (Verified , 05/06/17) Past Medical History * COPD, with several hospital visits in recent years * Coronary artery disease, with moderate disease on cardiac cath in 2013 * Insulin-dependent diabetes for many years * History of seizure disorder * History of unspecified psychiatric illness resulting in permanent disability * Anxiety * Depression * Hyperlipidemia * Hypertension * GERD * Chronic back pain * History of peripheral neuropathy Past Surgical History * Tubal ligation years ago * Cholecystectomy many years ago * Heart cath 2013 * Right femoral arterial line, left femoral arterial line, left femoral heat exchange catheter 05/06/17 . Reported Medications Reported Meds & Active Scripts Active Atrovent HFA 12.9 GM Inh (Ipratropium [place]) 17 Mcg/Actuation Aer 2 Puff INH Q6HR PRN Ventolin Hfa 18 GM Inh (Albuterol Sulfate) 90 Mcg/Act Aer 2 Puff INH Q4H PRN Cetirizine (Cetirizine HCl) 10 Mg Tab 10 Mg PO DAILY Carvedilol 6.25 Mg Tab 6.25 Mg PO BID Lasix (Furosemide) 20 Mg Tab 20 Mg PO DAILY Diclofenac Sodium DR (Diclofenac Sodium) 75 Mg Tabdr 75 Mg PO BID Glucotrol (Glipizide) 5 Mg Tab 5 Mg PO BIDAC Take 30 minutes before a meal Gabapentin 100 Mg Cap 100 Mg PO HS Lantus Inj (Insulin Glargine) 1,000 Unit/10 Ml Vial 24 Units SQ HS Ecotrin Low Strength (Aspirin) 81 Mg Tabdr 81 Mg PO DAILY Zocor (Simvastatin) 40 Mg Tab 40 Mg PO DAILY Diovan (Valsartan) 160 Mg Tab 160 Mg PO DAILY Metformin (Metformin HCl) 1,000 Mg Tab 1,000 Mg PO BIDPC With meals Reported Wellbutrin Xl 24 HR (Bupropion HCl) Unknown Strength Tab Unknown Dose PO DAILY Depakote ER (Divalproex Sodium) 500 Mg Heather 500 Mg PO DAILY Fluticasone Nasal [place] 50 Mcg/Act Naspr 50 Mcg EACH NARE BID 50 mcg/spray . Current Medications Medications (Trade) Dose Ordered Sig/Scarlett Route Start Time Stop Time Status Last Admin Propofol 100 ml @ 3.9 mls/hr TITRATE PRN IV 05/06/17 21:30 05/09/17 04:10 Fentanyl Citrate 250 ml @ 5 mls/hr TITRATE PRN IV 05/06/17 21:30 05/08/17 22:23 (Brethine Inj) 1 mg UNSCH PRN SQ 05/06/17 22:45 Sodium Chloride 1,000 ml @ 100 mls/hr Q10H IV 05/06/17 23:28 Future Hold 05/07/17 20:07 (Tylenol) 650 mg Q6H PRN PO 05/06/17 23:30 05/09/17 15:41 (fentaNYL INJ) 50 mcg Q1H PRN IV PUSH 05/06/17 23:30 (Zofran Inj) 4 mg Q6H PRN IV PUSH 05/06/17 23:30 (Albuterol Neb) 2.5 mg Q2HR NEB PRN INH 05/06/17 23:30 Miscellaneous Information 1 Q361D XX 05/06/17 23:30 (Chlorhexidine 2% Cloth) 3 pack Taper DAILY@04 TOP 05/07/17 04:00 05/03/18 03:59 05/09/17 21:49 (Chlorhexidine 2% Cloth) 3 pack UNSCH PRN TOP 05/06/17 23:30 (Aggie-Colace) 1 tab BID PO 05/07/17 09:00 05/09/17 07:58 (Milk Of Magnesia Liq) 30 ml Q12H PRN PO 05/06/17 23:30 (Senokot) 17.2 mg Q12H PRN PO 05/06/17 23:30 (Dulcolax Supp) 10 mg DAILY PRN RECTAL 05/06/17 23:30 (Peridex 0.12% Liq) 15 ml BID@08,20 MT 05/07/17 08:00 05/10/17 08:00 (Pepcid Inj) 10 mg Q12H IV PUSH 05/07/17 06:00 05/10/17 06:04 (Ativan Inj) 1 mg Q1H PRN IV PUSH 05/07/17 04:30 (Versed Inj) 2 mg Q1H PRN IV PUSH 05/07/17 04:30 Midazolam HCl 100 ml @ 2 mls/hr TITRATE PRN IV 05/07/17 04:30 05/09/17 19:07 Cisatracurium Besylate 100 mg/ Sodium Chloride 250 ml @ 50.73 mls/ hr TITRATE PRN IV 05/07/17 05:00 05/08/17 11:32 (Lacrilube Opht Oint) 1 applic Q4H PRN EACH EYE 05/07/17 04:30 05/08/17 19:37 (NS Flush) 2 ml BID IV FLUSH 05/07/17 09:00 05/10/17 08:26 (NS Flush) 2 ml UNSCH PRN IV FLUSH 05/07/17 04:30 Miscellaneous Information 0 ml @ 0 mls/hr UNSCH IV 05/07/17 04:30 (Heparin Inj) 5,000 units Q12H SQ 05/07/17 05:00 05/10/17 06:03 Norepinephrine Bitartrate 4 mg/ Sodium Chloride 250 ml @ 7.5 mls/hr TITRATE PRN IV 05/07/17 05:15 05/09/17 05:08 Valproate Sodium 500 mg/Sodium Chloride 105 ml @ 105 mls/hr Q24H IV 05/07/17 09:00 Future Hold 05/07/17 08:50 (Lacrilube Opht Oint) 1 applic Q12HR EACH EYE 05/07/17 09:00 05/10/17 10:36 (Versed Inj) 2 mg Q15M PRN IV PUSH 05/07/17 08:15 (Ecotrin Ec) 81 mg DAILY PO 05/08/17 09:00 05/10/17 08:26 Potassium Chloride 100 ml @ 50 mls/hr Q2H PRN IV 05/07/17 08:15 Potassium Chloride 100 ml @ 50 mls/hr Q2H PRN IV 05/07/17 08:15 (K-Lyte Cl Eff) 50 meq UNSCH PRN PO 05/07/17 08:15 Potassium Chloride 100 ml @ 25 mls/hr UNSCH PRN IV 05/07/17 08:15 05/07/17 17:17 Potassium Chloride 100 ml @ 50 mls/hr Q2H PRN IV 05/07/17 08:15 Magnesium Sulfate 4 gm/Sodium Chloride 100 ml @ 50 mls/hr UNSCH PRN IV 05/07/17 08:15 (Mag-Ox) 800 mg UNSCH PRN PO 05/07/17 08:15 Magnesium Sulfate 2 gm/Sodium Chloride 100 ml @ 50 mls/hr UNSCH PRN IV 05/07/17 08:15 (K-Phos) 2,000 mg Q4H PRN PO 05/07/17 08:15 Sodium Phosphate 30 mmol/Sodium Chloride 250 ml @ 42 mls/hr UNSCH PRN IV 05/07/17 08:15 05/07/17 10:37 (K-Phos) 2,000 mg UNSCH PRN PO/TUBE 05/07/17 08:15 Potassium Phosphate 30 mmol/ Sodium Chloride 260 ml @ 42 mls/hr UNSCH PRN IV 05/07/17 08:15 Piperacillin Sod/ Tazobactam Sod 50 ml @ 100 mls/hr Q6H IV 05/07/17 09:00 05/10/17 08:26 (Lactulose Liq) 30 ml DAILY OG-TUBE 05/07/17 09:00 05/09/17 07:57 (D50w (Vial) Inj) 50 ml UNSCH PRN IV PUSH 05/08/17 00:30 (Glucagon Inj) 1 mg UNSCH PRN OTHER 05/08/17 00:30 (NovoLOG SUPPLEMENTAL SCALE) 1 Q4H SQ 05/08/17 00:30 05/08/17 08:07 Midazolam HCl 100 ml @ 2 mls/hr TITRATE PRN IV 05/09/17 00:15 Levetriacetam 100 ml @ 400 mls/hr Q12HR IV 05/10/17 02:15 05/10/17 08:26 Diltiazem HCl 125 mg/Sodium Chloride 125 ml @ 5 mls/hr TITRATE PRN IV 05/10/17 09:30 05/10/17 10:35 (Trandate Inj) 20 mg Q4H PRN IV 05/10/17 10:15 (Duoneb Neb) 1 ampule Q6HR NEB INH 05/10/17 16:00 Vancomycin HCl 1250 mg/Sodium Chloride 262.5 ml @ 262.5 mls/ hr ONCE ONCE IV 05/10/17 10:30 05/10/17 11:29 UNV Pharmacy Profile Note 0 ml @ 0 mls/hr UNSCH OTHER 05/10/17 10:30 UNV Diltiazem HCl 125 mg/Sodium Chloride 125 ml @ 5 mls/hr TITRATE PRN IV 05/10/17 10:45 UNV (Depakote Er) 500 mg DAILY PO 05/10/17 10:45 UNV Family History The patient's mother and father reportedly both had diabetes, but there is no family history of COPD. . Substance Use Tobacco: Long-term smoker up to 1 pack per day Alcohol: None Prescription med abuse: None Illicits: The patient reportedly has used marijuana and cocaine in the past, but not in the past 10 or 15 years, and the drug screen on arrival at the hospital was negative. . Psychosocial History The patient was born in [place] and moved to [place] about 23 or 24 years ago. She has never been . She has one daughter, 21 years old and living in [place]. The patient's daughter tells me that at the age of 4 she was moved to her grandmother's house where she lived until the age of 8 when she was subsequently moved to her aunt' s house. She says "my mother was not able to take care of me." The patient has not been employed, but has received government assistance since her psychiatric diagnoses many years ago. . Spiritual/Cultural Factors The patient's daughter reports that the patient does "believe in God," but she has been on affiliated with any taoist or clergy for many years. No human resources consultant visits have been requested. . Living Will: Never completed Health Care Surrogate: Never completed Durable Power of Director Of Sports Performance: Never completed Family/friends goals: The patient's daughter Cheyanne notes that the patient had spoken with her more than once in recent years about healthcare goals and wishes, informing the daughter that she would not want to be kept alive artificially if the prognosis was poor. The patient's daughter feels that DNR status is appropriate at this time, and she will consider withdrawal of life support if the apparent encephalopathy from the anoxic brain injury does not improve significantly in the upcoming hours and days. Ethical and Legal Issues There are no ethical issues that would impact her care or decision-making at this time. The patient is unmarried and has just one child, katarina Edward in [place]. The patient lacks capacity, and is very unlikely to regain capacity for decision -making, so Cheyanne is the proxy decision-maker. . Physical Exam Vital Signs Date Time Temp Pulse Resp B/P (MAP) Pulse Ox O2 Delivery O2 Flow Rate FiO2 05/10/17 10:35 102 181/93 05/10/17 10:11 96 40 05/10/17 08:21 97 45 05/10/17 06:00 111 05/10/17 04:04 99 55 05/10/17 04:00 114 05/10/17 04:00 55 05/10/17 04:00 100.1 114 16 161/74 (103) 100 169/84 (112) 05/10/17 02:00 113 05/10/17 00:00 65 05/10/17 00:00 99.5 110 16 151/68 (95) 98 153/76 (101) 05/10/17 00:00 110 05/09/17 23:47 98 60 05/09/17 22:00 111 05/09/17 20:06 100 65 05/09/17 20:00 65 05/09/17 20:00 112 05/09/17 20:00 99.5 112 16 131/61 (84) 100 131/68 (89) 05/09/17 19:10 113 05/09/17 19:00 178 05/09/17 18:55 100 100 05/09/17 18:00 116 136/70 (92) 05/09/17 18:00 117 05/09/17 16:45 16 05/09/17 16:00 100.3 118 16 125/60 (81) 96 137/75 (95) 05/09/17 16:00 122 05/09/17 16:00 40 05/09/17 15:23 98 40 05/09/17 14:00 120 05/09/17 12:00 40 05/09/17 12:00 99.5 118 16 105/54 (71) 99 109/68 (82) 05/09/17 12:00 118 05/09/17 11:57 100 40 Exam CONSTITUTIONAL/GENERAL: This is an adequately nourished patient, in no apparent distress. Intubated in the [facility] TUBES/LINES/DRAINS: ET tube, Benoit, SCDs, femoral lines SKIN: No jaundice, rashes, or lesions. Ecchymoses on upper extremities. No wounds seen anteriorly. Skin temperature appropriate. Not diaphoretic. HEAD: Atraumatic. Normocephalic. EYES: Pupils equal and round, about 1.5 mm each, and I am unable to see any reaction to light. No scleral icterus. No injection or drainage. Fundi not examined. ENT: Nose without bleeding or purulent drainage. NECK: Trachea midline. Supple, nontender. No palpable thyroid enlargement or nodularity. CARDIOVASCULAR: Regular rate and rhythm without murmurs, gallops, or rubs. No JVD. Peripheral pulses barely perceptible posterior tibial. RESPIRATORY/CHEST: Symmetric, unlabored respirations on the ventilator. Scattered rhonchi are heard GASTROINTESTINAL: Abdomen soft, nondistended, obese. No hepato-splenomegaly, or palpable masses. No guarding. Bowel sounds present. GENITOURINARY: Without palpable bladder distension. Benoit catheter in place. MUSCULOSKELETAL: Extremities without clubbing, cyanosis, or edema. No joint tenderness or effusion noted. No calf tenderness. No mottling or clubbing. LYMPHATICS: No palpable cervical or supraclavicular adenopathy. NEUROLOGICAL: Unresponsive to voice, touch, or painful stimuli PSYCHIATRIC: Unable to evaluate due to clinical condition . Diagnostic Tests Laboratory Laboratory Tests Test 05/07/17 15:45 05/07/17 22:08 05/08/17 04:08 05/08/17 08:41 Blood Urea Nitrogen 18 MG/DL (7-18) 18 MG/DL (7-18) 18 MG/DL (7-18) Creatinine 1.11 MG/DL (0.50-1.00) 1.09 MG/DL (0.50-1.00) 1.08 MG/DL (0.50-1.00) Random Glucose 136 MG/DL (74-106) 85 MG/DL (74-106) 162 MG/DL (74-106) Calcium Level 7.8 MG/DL (8.5-10.1) 8.1 MG/DL (8.5-10.1) 8.4 MG/DL (8.5-10.1) Magnesium Level 1.8 MG/DL (1.5-2.5) 1.7 MG/DL (1.5-2.5) Sodium Level 144 MEQ/L (136-145) 145 MEQ/L (136-145) 143 MEQ/L (136-145) Potassium Level 3.5 MEQ/L (3.5-5.1) 3.9 MEQ/L (3.5-5.1) 3.8 MEQ/L (3.5-5.1) Chloride Level 112 MEQ/L (98-107) 113 MEQ/L (98-107) 110 MEQ/L (98-107) Carbon Dioxide Level 24.6 MEQ/L (21.0-32.0) 22.3 MEQ/L (21.0-32.0) 22.1 MEQ/L (21.0-32.0) Anion Gap 7 MEQ/L (5-15) 10 MEQ/L (5-15) 11 MEQ/L (5-15) Estimat Glomerular Filtration Rate 61 ML/MIN (>89) 63 ML/MIN (>89) 63 ML/MIN (>89) Total Creatine Kinase 105 U/L (26-192) Creatine Kinase MB 1.5 NG/ML (0.5-3.6) Troponin I 0.03 NG/ML (0.02-0.05) Total Protein 5.4 GM/DL (6.4-8.2) 5.7 GM/DL (6.4-8.2) Albumin 2.4 GM/DL (3.4-5.0) 2.5 GM/DL (3.4-5.0) Alkaline Phosphatase 74 U/L (45-117) 82 U/L (45-117) Aspartate Amino Transf (AST/SGOT) 72 U/L (15-37) 70 U/L (15-37) Alanine Aminotransferase (ALT/SGPT) 97 U/L (10-53) 99 U/L (10-53) Total Bilirubin 0.5 MG/DL (0.2-1.0) 0.7 MG/DL (0.2-1.0) Phosphorus Level 3.0 MG/DL (2.5-4.9) White Blood Count 7.5 TH/MM3 (4.0-11.0) Red Blood Count 3.52 MIL/MM3 (4.00-5.30) Hemoglobin 10.8 GM/DL (11.6-15.3) Hematocrit 32.4 % (35.0-46.0) Mean Corpuscular Volume 92.2 FL (80.0-100.0) Mean Corpuscular Hemoglobin 30.6 PG (27.0-34.0) Mean Corpuscular Hemoglobin Concent 33.2 % (32.0-36.0) Red Cell Distribution Width 13.9 % (11.6-17.2) Platelet Count 113 TH/MM3 (150-450) Mean Platelet Volume 8.4 FL (7.0-11.0) Neutrophils (%) (Auto) 80.0 % (16.0-70.0) Lymphocytes (%) (Auto) 13.3 % (9.0-44.0) Monocytes (%) (Auto) 5.8 % (0.0-8.0) Eosinophils (%) (Auto) 0.4 % (0.0-4.0) Basophils (%) (Auto) 0.5 % (0.0-2.0) Neutrophils # (Auto) 6.0 TH/MM3 (1.8-7.7) Lymphocytes # (Auto) 1.0 TH/MM3 (1.0-4.8) Monocytes # (Auto) 0.4 TH/MM3 (0-0.9) Eosinophils # (Auto) 0.0 TH/MM3 (0-0.4) Basophils # (Auto) 0.0 TH/MM3 (0-0.2) CBC Comment DIFF FINAL Differential Comment Ammonia 31 MCMOL/L (11-32) Test 05/09/17 05:30 05/10/17 04:08 White Blood Count 9.0 TH/MM3 (4.0-11.0) 9.3 TH/MM3 (4.0-11.0) Red Blood Count 3.44 MIL/MM3 (4.00-5.30) 3.59 MIL/MM3 (4.00-5.30) Hemoglobin 10.7 GM/DL (11.6-15.3) 10.9 GM/DL (11.6-15.3) Hematocrit 32.1 % (35.0-46.0) 33.4 % (35.0-46.0) Mean Corpuscular Volume 93.6 FL (80.0-100.0) 93.1 FL (80.0-100.0) Mean Corpuscular Hemoglobin 31.2 PG (27.0-34.0) 30.4 PG (27.0-34.0) Mean Corpuscular Hemoglobin Concent 33.3 % (32.0-36.0) 32.7 % (32.0-36.0) Red Cell Distribution Width 14.0 % (11.6-17.2) 14.2 % (11.6-17.2) Platelet Count 121 TH/MM3 (150-450) 108 TH/MM3 (150-450) Mean Platelet Volume 9.9 FL (7.0-11.0) 9.1 FL (7.0-11.0) Neutrophils (%) (Auto) 83.3 % (16.0-70.0) 81.6 % (16.0-70.0) Lymphocytes (%) (Auto) 10.4 % (9.0-44.0) 10.6 % (9.0-44.0) Monocytes (%) (Auto) 5.3 % (0.0-8.0) 6.7 % (0.0-8.0) Eosinophils (%) (Auto) 0.4 % (0.0-4.0) 0.2 % (0.0-4.0) Basophils (%) (Auto) 0.6 % (0.0-2.0) 0.9 % (0.0-2.0) Neutrophils # (Auto) 7.5 TH/MM3 (1.8-7.7) 7.6 TH/MM3 (1.8-7.7) Lymphocytes # (Auto) 0.9 TH/MM3 (1.0-4.8) 1.0 TH/MM3 (1.0-4.8) Monocytes # (Auto) 0.5 TH/MM3 (0-0.9) 0.6 TH/MM3 (0-0.9) Eosinophils # (Auto) 0.0 TH/MM3 (0-0.4) 0.0 TH/MM3 (0-0.4) Basophils # (Auto) 0.1 TH/MM3 (0-0.2) 0.1 TH/MM3 (0-0.2) CBC Comment DIFF FINAL DIFF FINAL Differential Comment Blood Urea Nitrogen 16 MG/DL (7-18) 15 MG/DL (7-18) Creatinine 1.09 MG/DL (0.50-1.00) 1.05 MG/DL (0.50-1.00) Random Glucose 203 MG/DL (74-106) 193 MG/DL (74-106) Total Protein 6.1 GM/DL (6.4-8.2) 6.6 GM/DL (6.4-8.2) Albumin 2.4 GM/DL (3.4-5.0) 2.4 GM/DL (3.4-5.0) Calcium Level 8.0 MG/DL (8.5-10.1) 8.4 MG/DL (8.5-10.1) Phosphorus Level 4.1 MG/DL (2.5-4.9) Magnesium Level 1.5 MG/DL (1.5-2.5) Alkaline Phosphatase 87 U/L (45-117) 95 U/L (45-117) Aspartate Amino Transf (AST/SGOT) 64 U/L (15-37) 68 U/L (15-37) Alanine Aminotransferase (ALT/SGPT) 88 U/L (10-53) 70 U/L (10-53) Total Bilirubin 0.6 MG/DL (0.2-1.0) 0.9 MG/DL (0.2-1.0) Sodium Level 144 MEQ/L (136-145) 145 MEQ/L (136-145) Potassium Level 3.8 MEQ/L (3.5-5.1) 3.9 MEQ/L (3.5-5.1) Chloride Level 111 MEQ/L (98-107) 112 MEQ/L (98-107) Carbon Dioxide Level 21.7 MEQ/L (21.0-32.0) 22.4 MEQ/L (21.0-32.0) Anion Gap 11 MEQ/L (5-15) 11 MEQ/L (5-15) Estimat Glomerular Filtration Rate 63 ML/MIN (>89) 65 ML/MIN (>89) Result Diagram: 05/10/1740705/10/17407 Imaging Last Impressions Chest X-Ray 05/10/17 0600 Signed Impressions: Service Date/Time: Wednesday, May 10, 2017 04:41 - CONCLUSION: 1. Cardiomegaly and findings of congestive heart failure. This is new when compared with the prior exam. Laith oCe MD Abdomen Ultrasound 05/07/17 0000 Signed Impressions: Service Date/Time: Sunday, May 07, 2017 14:19 - CONCLUSION: 1. Echogenic liver compatible with fatty infiltration or hepatocellular disease. 2. Cholecystectomy Laith Coe MD Head CT [id number]/06/[id number] Signed Impressions: Service Date/Time: Sunday, May 07, 2017 03:14 - CONCLUSION: Normal examination. Noé Ybarra MD CT Angiography 05/06/17 0000 Signed Impressions: Service Date/Time: Sunday, May 07, 2017 03:21 - CONCLUSION: 1. No pulmonary embolus. 2. Bibasilar areas of consolidation or atelectasis being worse on the left. There are minimal bilateral pleural effusions. Noé Ybarra MD Procedures Bilateral femoral arterial lines and left femoral heat exchange catheter . Patient/Family Conference Present at Family Conference: Patient's daughter Cheyanne Garcia . Family Conference Time (mins): 39 Family Conference Location: Telephone Issues Discussed: * Palliative care role, purpose, approach * Additional medical, psychosocial, and spiritual history * Patients general health, functional status, and cognitive changes in the months leading up to the current hospitalization * Patient/family understanding of the current medical problems * Patient/family understanding of prognosis * Patients goals of care as best understood from advance directives and/or conversations and/or values * Current medical treatment options and benefits/burdens of those options * Likely scenarios comparing ongoing aggressive care with a transition to comfort measures only * Questions answered to the best of my ability * Palliative care contact information provided The patient's daughter Cheyanne notes that the patient had spoken with her more than once in recent years about healthcare goals and wishes, informing the daughter that she would not want to be kept alive artificially if the prognosis was poor. The patient's daughter feels that DNR status is appropriate at this time, and she will consider withdrawal of life support if the apparent encephalopathy from the anoxic brain injury does not improve significantly in the upcoming hours and days. . Assessment and Plan Disease Oriented Problem List: (1) anoxic brain injury, severe encephalopathy (2) PEA cardiac arrest 05/06/17 (3) respiratory failure s/p cardiac arrest and resuscitation (4) transaminitis, likely due to hypoxic insult (5) history of CHF, ejection fraction 15-20% in 2014 (6) acute kidney injury (7) coronary artery disease, moderate disease on cath in 2014 (8) insulin-dependent diabetes (9) COPD, moderate (10) history of seizure disorder (11) unspecified but significant psychiatric illness, disabling (12) depression (13) hyperlipidemia (14) hypertension (15) GERD (16) chronic back pain (17) peripheral neuropathy (18) anxiety Symptom Scale: (1) anxiety 0-10 Scale: Unable to quantify (2) dyspnea 0-10 Scale: Unable to quantify (3) encephalopathy 0-10 Scale: Unable to quantify Pertinent Non-Medical Issues Psychosocial: Unmarried, 1 daughter in [place], disabled via psychiatric diagnoses for many years. Was living alone. Spiritual: Unaffiliated yazdanism Legal: The patient is unmarried and has just one child, katarina Edward in [place]. The patient is very unlikely to regain capacity for decision-making, so Cheyanne is the proxy decision-maker. Ethical issues impacting care: None . Important Contacts Patient's daughter/HCP Cheyanne Garcia [phone] . Prognosis The patient's prognosis is extremely poor. She has underlying moderate or severe pulmonary and cardiac disease, and now has an apparent significant anoxic brain injury. . Code Status: Alternative Code (intubation only) Plan * ALTERNATE CODE, intubation only per request of daughter 05/10/17 * DECISION-MAKING: The patient is unmarried and has just one child, katarina Edward in [place]. The patient is very unlikely to regain capacity for decision-making, so Cheyanne is the proxy decision-maker. * GOALS: The patient's daughter Cheyanne notes that the patient had spoken with her more than once in recent years about healthcare goals and wishes, informing the daughter that she would not want to be kept alive artificially if the prognosis was poor. The patient's daughter feels that DNR status is appropriate at this time, and she will consider withdrawal of life support if the apparent encephalopathy from the anoxic brain injury does not improve significantly in the upcoming hours and days. * SYMPTOMS: The patient has long-term underlying psychiatric issues including anxiety, but there is no clear evidence of symptoms at this time. Any dyspnea is being managed by mechanical ventilation. It is possible she has pain from the resuscitation efforts, but there are no obvious signs of that. No further medication recommendations at this time. * The patient's daughter Cheyanne is set to arrive into town late noon; she does want to allow some additional time to pass to see if there is any evidence of improvement relative to the brain injury. If there is no improvement, she will want to discuss further the option of withdrawal of life support. * Hopefully we will be able to keep the patient off of all sedation now so as to make evaluation of her encephalopathy as accurate as possible. * Palliative Care will continue to follow the patient during this hospitalization. . Time Spent Total Floor Time (mins): 81 Face to Face Time (mins): 16 >50% Counseling/Coord of Care: Yes (d/w RN) Thank you for the opportunity to participate in the care of Ms. Garcia. Attestation To help prompt me to consider important information that might be impacting today's encounter and assessment, information from prior notes written by myself or my colleagues may have been "brought forward" into today's note. My signature on this note, however, is an attestation that I personally performed the exam, history, and/or decision-making noted today, and, unless otherwise indicated, the interactions with patient, family, and staff as well as the review of records all occurred today. I also attest that the listed assessment and stated plan reflect my best clinical judgment today based on the combination of historical information, prior notes, and today's exam/ interactions. When time spent is documented, it refers only to time spent today by the signer, or if indicated, combined time spent today by collaborating physician/nurse practitioner. Marah dAhikari MD May 10, 2017 10:46
[2017-05-10] MEDS: CARVEDILOL 6.25 MG TAB PO SCH ×2 (11:55→19:57)
--- NOTE | 2017-05-10 12:35 | PD.CARD.PN ---
Subjective Subjective Remarks intubated, unresponsive off sedation Objective Medications Current Medications Medications (Trade) Dose Ordered Sig/Scarlett Route Start Time Stop Time Status Last Admin Propofol 100 ml @ 3.9 mls/hr TITRATE PRN IV 05/06/17 21:30 05/09/17 04:10 Fentanyl Citrate 250 ml @ 5 mls/hr TITRATE PRN IV 05/06/17 21:30 05/08/17 22:23 (Brethine Inj) 1 mg UNSCH PRN SQ 05/06/17 22:45 Sodium Chloride 1,000 ml @ 100 mls/hr Q10H IV 05/06/17 23:28 Future Hold 05/07/17 20:07 (Tylenol) 650 mg Q6H PRN PO 05/06/17 23:30 05/09/17 15:41 (fentaNYL INJ) 50 mcg Q1H PRN IV PUSH 05/06/17 23:30 (Zofran Inj) 4 mg Q6H PRN IV PUSH 05/06/17 23:30 (Albuterol Neb) 2.5 mg Q2HR NEB PRN INH 05/06/17 23:30 Miscellaneous Information 1 Q361D XX 05/06/17 23:30 (Chlorhexidine 2% Cloth) 3 pack Taper DAILY@04 TOP 05/07/17 04:00 05/03/18 03:59 05/09/17 21:49 (Chlorhexidine 2% Cloth) 3 pack UNSCH PRN TOP 05/06/17 23:30 (Aggie-Colace) 1 tab BID PO 05/07/17 09:00 05/09/17 07:58 (Milk Of Magnesia Liq) 30 ml Q12H PRN PO 05/06/17 23:30 (Senokot) 17.2 mg Q12H PRN PO 05/06/17 23:30 (Dulcolax Supp) 10 mg DAILY PRN RECTAL 05/06/17 23:30 (Peridex 0.12% Liq) 15 ml BID@08,20 MT 05/07/17 08:00 05/10/17 08:00 (Pepcid Inj) 10 mg Q12H IV PUSH 05/07/17 06:00 05/10/17 06:04 (Ativan Inj) 1 mg Q1H PRN IV PUSH 05/07/17 04:30 (Versed Inj) 2 mg Q1H PRN IV PUSH 05/07/17 04:30 Midazolam HCl 100 ml @ 2 mls/hr TITRATE PRN IV 05/07/17 04:30 05/09/17 19:07 Cisatracurium Besylate 100 mg/ Sodium Chloride 250 ml @ 50.73 mls/ hr TITRATE PRN IV 05/07/17 05:00 05/08/17 11:32 (Lacrilube Opht Oint) 1 applic Q4H PRN EACH EYE 05/07/17 04:30 05/08/17 19:37 (NS Flush) 2 ml BID IV FLUSH 05/07/17 09:00 05/10/17 08:26 (NS Flush) 2 ml UNSCH PRN IV FLUSH 05/07/17 04:30 Miscellaneous Information 0 ml @ 0 mls/hr UNSCH IV 05/07/17 04:30 (Heparin Inj) 5,000 units Q12H SQ 05/07/17 05:00 05/10/17 06:03 Norepinephrine Bitartrate 4 mg/ Sodium Chloride 250 ml @ 7.5 mls/hr TITRATE PRN IV 05/07/17 05:15 05/09/17 05:08 Valproate Sodium 500 mg/Sodium Chloride 105 ml @ 105 mls/hr Q24H IV 05/07/17 09:00 Future Hold 05/07/17 08:50 (Lacrilube Opht Oint) 1 applic Q12HR EACH EYE 05/07/17 09:00 05/10/17 10:36 (Versed Inj) 2 mg Q15M PRN IV PUSH 05/07/17 08:15 (Ecotrin Ec) 81 mg DAILY PO 05/08/17 09:00 05/10/17 08:26 Potassium Chloride 100 ml @ 50 mls/hr Q2H PRN IV 05/07/17 08:15 Potassium Chloride 100 ml @ 50 mls/hr Q2H PRN IV 05/07/17 08:15 (K-Lyte Cl Eff) 50 meq UNSCH PRN PO 05/07/17 08:15 Potassium Chloride 100 ml @ 25 mls/hr UNSCH PRN IV 05/07/17 08:15 05/07/17 17:17 Potassium Chloride 100 ml @ 50 mls/hr Q2H PRN IV 05/07/17 08:15 Magnesium Sulfate 4 gm/Sodium Chloride 100 ml @ 50 mls/hr UNSCH PRN IV 05/07/17 08:15 (Mag-Ox) 800 mg UNSCH PRN PO 05/07/17 08:15 Magnesium Sulfate 2 gm/Sodium Chloride 100 ml @ 50 mls/hr UNSCH PRN IV 05/07/17 08:15 (K-Phos) 2,000 mg Q4H PRN PO 05/07/17 08:15 Sodium Phosphate 30 mmol/Sodium Chloride 250 ml @ 42 mls/hr UNSCH PRN IV 05/07/17 08:15 05/07/17 10:37 (K-Phos) 2,000 mg UNSCH PRN PO/TUBE 05/07/17 08:15 Potassium Phosphate 30 mmol/ Sodium Chloride 260 ml @ 42 mls/hr UNSCH PRN IV 05/07/17 08:15 Piperacillin Sod/ Tazobactam Sod 50 ml @ 100 mls/hr Q6H IV 05/07/17 09:00 05/10/17 08:26 (Lactulose Liq) 30 ml DAILY OG-TUBE 05/07/17 09:00 05/09/17 07:57 (D50w (Vial) Inj) 50 ml UNSCH PRN IV PUSH 05/08/17 00:30 (Glucagon Inj) 1 mg UNSCH PRN OTHER 05/08/17 00:30 (NovoLOG SUPPLEMENTAL SCALE) 1 Q4H SQ 05/08/17 00:30 05/10/17 11:55 Midazolam HCl 100 ml @ 2 mls/hr TITRATE PRN IV 05/09/17 00:15 Levetriacetam 100 ml @ 400 mls/hr Q12HR IV 05/10/17 02:15 05/10/17 08:26 Diltiazem HCl 125 mg/Sodium Chloride 125 ml @ 5 mls/hr TITRATE PRN IV 05/10/17 09:30 05/10/17 10:35 (Trandate Inj) 20 mg Q4H PRN IV 05/10/17 10:15 (Duoneb Neb) 1 ampule Q6HR NEB INH 05/10/17 16:00 Pharmacy Profile Note 0 ml @ 0 mls/hr UNSCH OTHER 05/10/17 10:30 Diltiazem HCl 125 mg/Sodium Chloride 125 ml @ 5 mls/hr TITRATE PRN IV 05/10/17 12:00 (Depakote Er) 500 mg DAILY PO 05/10/17 12:00 (Coreg) 6.25 mg BID PO 05/10/17 11:30 05/10/17 11:55 Vancomycin HCl 1500 mg/Sodium Chloride 515 ml @ 250 mls/hr Q12H IV 05/10/17 13:00 Miscellaneous Information SPECIFIC LAB TO BE DRAWN:VANCOMYCIN TROUGH DATE TO... ONCE ONCE .XX 05/12/17 00:45 05/12/17 00:46 Vital Signs / I&O Vital Signs Date Time Temp Pulse Resp B/P (MAP) Pulse Ox O2 Delivery O2 Flow Rate FiO2 05/10/17 12:00 105 05/10/17 11:00 40 05/10/17 10:59 97 40 05/10/17 10:35 102 181/93 05/10/17 10:11 96 40 05/10/17 10:00 99 05/10/17 08:21 97 45 05/10/17 08:00 119 05/10/17 08:00 45 05/10/17 08:00 99.3 119 16 197/84 (121) 99 187/97 (127) 05/10/17 06:00 111 05/10/17 04:04 99 55 05/10/17 04:00 114 05/10/17 04:00 55 05/10/17 04:00 100.1 114 16 161/74 (103) 100 169/84 (112) 05/10/17 02:00 113 05/10/17 00:00 65 05/10/17 00:00 99.5 110 16 151/68 (95) 98 153/76 (101) 05/10/17 00:00 110 05/09/17 23:47 98 60 05/09/17 22:00 111 05/09/17 20:06 100 65 05/09/17 20:00 65 05/09/17 20:00 112 05/09/17 20:00 99.5 112 16 131/61 (84) 100 131/68 (89) 05/09/17 19:10 113 05/09/17 19:00 178 05/09/17 18:55 100 100 05/09/17 18:00 116 136/70 (92) 05/09/17 18:00 117 05/09/17 16:45 16 05/09/17 16:00 100.3 118 16 125/60 (81) 96 137/75 (95) 05/09/17 16:00 122 05/09/17 16:00 40 05/09/17 15:23 98 40 05/09/17 14:00 120 I/O 05/09/17 05/09/17 05/09/17 05/10/17 05/10/17 05/10/17 07:00 15:00 23:00 07:00 15:00 23:00 Intake Total 50 ml 390 ml 262 ml Output Total 350 ml 100 ml 100 ml Balance -350 ml 50 ml 290 ml 162 ml Intake IV Total 50 ml 150 ml 262 ml Other 240 ml Output Urine Total 150 ml 100 ml 100 ml Gastric Drainage Total 200 ml # Bowel Movements 2 2 Physical Exam GENERAL: SKIN: Warm and dry. HEAD: Normocephalic. EYES: No scleral icterus. No injection or drainage. NECK: Supple, trachea midline. No JVD or lymphadenopathy. CARDIOVASCULAR: Regular rate and rhythm without murmurs, gallops, or rubs. RESPIRATORY: Breath sounds equal bilaterally. No accessory muscle use. GASTROINTESTINAL: Abdomen soft, non-tender, nondistended. MUSCULOSKELETAL: No cyanosis, or edema. BACK: Nontender without obvious deformity. No CVA tenderness. Laboratory Laboratory Tests Test 05/10/17 04:08 White Blood Count 9.3 TH/MM3 Red Blood Count 3.59 MIL/MM3 Hemoglobin 10.9 GM/DL Hematocrit 33.4 % Mean Corpuscular Volume 93.1 FL Mean Corpuscular Hemoglobin 30.4 PG Mean Corpuscular Hemoglobin Concent 32.7 % Red Cell Distribution Width 14.2 % Platelet Count 108 TH/MM3 Mean Platelet Volume 9.1 FL Neutrophils (%) (Auto) 81.6 % Lymphocytes (%) (Auto) 10.6 % Monocytes (%) (Auto) 6.7 % Eosinophils (%) (Auto) 0.2 % Basophils (%) (Auto) 0.9 % Neutrophils # (Auto) 7.6 TH/MM3 Lymphocytes # (Auto) 1.0 TH/MM3 Monocytes # (Auto) 0.6 TH/MM3 Eosinophils # (Auto) 0.0 TH/MM3 Basophils # (Auto) 0.1 TH/MM3 CBC Comment DIFF FINAL Differential Comment Blood Urea Nitrogen 15 MG/DL Creatinine 1.05 MG/DL Random Glucose 193 MG/DL Total Protein 6.6 GM/DL Albumin 2.4 GM/DL Calcium Level 8.4 MG/DL Alkaline Phosphatase 95 U/L Aspartate Amino Transf (AST/SGOT) 68 U/L Alanine Aminotransferase (ALT/SGPT) 70 U/L Total Bilirubin 0.9 MG/DL Sodium Level 145 MEQ/L Potassium Level 3.9 MEQ/L Chloride Level 112 MEQ/L Carbon Dioxide Level 22.4 MEQ/L Anion Gap 11 MEQ/L Estimat Glomerular Filtration Rate 65 ML/MIN Imaging Last 24 hours Impressions Chest X-Ray 05/10/17 0600 Signed Impressions: Service Date/Time: Wednesday, May 10, 2017 04:41 - CONCLUSION: 1. Cardiomegaly and findings of congestive heart failure. This is new when compared with the prior exam. Laith Coe MD Assessment and Plan Problem List: (1) CAD (coronary artery disease) ICD Codes: I25.10 - Atherosclerotic heart disease of [place] coronary artery without angina pectoris (2) CHRONIC OBSTRUCTIVE PULMON DISEASE W ACUTE LOWER RESP INFCT ICD Codes: J44.0 - CHRONIC OBSTRUCTIVE PULMON DISEASE W ACUTE LOWER RESP INFCT Status: Acute (3) Cardiomyopathy ICD Codes: I42.9 - Cardiomyopathy Status: Acute (4) Cardiopulmonary arrest ICD Codes: I46.9 - Cardiac arrest, cause unspecified Status: Acute (5) Diabetes mellitus ICD Codes: E11.9 - Type 2 diabetes mellitus without complications Status: Acute Assessment and Plan 1.) Cardiomyopathy - euvolemic, obie and beta navya held due to recent cardiogenic shock and uncertain neurologic status 2.) CAD - continue aspirin, statin held due to shock liver and elevated lfts Aguila Early MD May 10, 2017 12:35
[2017-05-10] MEDS: MIDAZOLAM 100 MG/100 ML INJ 100 ML IV PRN (13:13)
[2017-05-10] MEDS: DIVALPROEX SODIUM E.R. 500 MG TAB PO SCH (13:13)
[2017-05-10] MEDS: VANCOMYCIN INJ 1,500 MG in SODIUM CHLORID 0.9% 500 ML INJ 500 ML IV SCH (13:13)
--- NOTE | 2017-05-10 19:28 | MG ---
cc: AKOSUA MANRIQUE MD Lab No: Date: 05/10/2017 Age: Sex: F Race: DATE OF [address] Chu MEDICAL HISTORY 1. Cardiac arrest found unresponsive in [facility]. 2. History of COPD. 3. Diabetes. 4. Hypertension. 5. Depression. 6. Hyperlipidemia. 7. Hypercholesterolemia. 8. Bipolar disorder. 9. Gastroesophageal reflux disease. 10. Anxiety. 11. Caffeine. 12. Schizophrenia. MEDICATIONS 1. Keppra. 2. Aspirin. 3. Insulin aspart. 4. Piperacillin. 5. Heparin. 6. Norepinephrine. 7. Albuterol. 8. Tylenol. DESCRIPTION The entire EEG recording is severely suppressed with generalized low amplitude of less than 20 microvolts but greater than 2 microvolts with generalized activity that is very low amplitude, delta 1-2 Hz. Photic stimulation did not elicit a driving response. Hyperventilation was not done. There were no electrographic seizures or epileptiform discharges seen during the recording. INTERPRETATION This is an abnormal EEG recording. There is severe suppression and very low amplitude. Slow delta activity may indicate a severe encephalopathy that may be secondary to global anoxic effect or severe metabolic derangement. Absence of electrographic seizures or epileptiform discharges does not exclude diagnosis of epilepsy. Clinical correlation is recommended. Akosua Manrique MD RGO/KK /7:17 PM /7:21 PM SIMON
--- NOTE | 2017-05-10 21:50 | EKG ---
Date Performed: 05/09/2017 Time Performed: 18:33:15 PTAGE: 56 years EKG: ATRIAL FIBRILLATION WITH RAPID VENTRICULAR RESPONSE NONSPECIFIC ST & T-WAVE ABNORMALITY ABN ORMAL ECG SINCE PREVIOUS TRACING , THERE IS A RHYTHM CHANGE FROM SINUS RHYTHM TO ATRIAL FIBRILLATION WIT H RAPID VENTRICULAR RESPONSE. ST T CHANGE MORE PROMINENT. PREVIOUS TRACING 05/07/2017 @00.11 DOCTOR: Ousmane Mace Interpretating Date/Time 05/10/2017 21:49:55
[2017-05-10] MEDS: DILTIAZEM INJ 125 MG in SODIUM CHLORIDE 0.9% INJ 100 ML IV PRN (22:31)
[2017-05-11] VITALS (16 sets, daily range): BP systolic 113–176; BP diastolic 62–87; PULSE 79–99; RESP 16–22; TEMP 98; O2SAT 95–99
[2017-05-11] MEDS: INSULIN ASPART SUPPLEMENTAL SCALE SQ SCH ×7 (00:30→23:50)
[2017-05-11] MEDS: VANCOMYCIN INJ 1,500 MG in SODIUM CHLORID 0.9% 500 ML INJ 500 ML IV SCH (01:08)
[2017-05-11] MEDS: RESP: ALBUTEROL 2.5 MG/IPRATROPIUM 0.5 MG NEB (SCH) INH ×4 (03:44→21:08)
[2017-05-11] MEDS: CHLORHEXIDINE GLUCONATE 2 % 1 PACK (2 CLOTHS) TOP SCH ×2 (04:00→22:13)
[2017-05-11] MEDS: PIPERACIL-TAZO 3.375 GM PREMIX 50 ML IV SCH ×4 (04:10→19:52)
[2017-05-11] MEDS: FAMOTIDINE 20 MG/2 ML VIAL IV PUSH SCH ×2 (04:10→17:15)
[2017-05-11] MEDS: HEPARIN SODIUM - SQ 10,000 UNITS/ML VIAL SQ SCH ×2 (04:10→17:00)
[2017-05-11 05:06] LABS: AUTOMATED NEUTROPHIL # 7.8 TH/MM3 (1.8-7.7); BASOPHIL # 0.1 TH/MM3 (0-0.2); EOSINOPHIL % 0.2 % (0.0-4.0); HEMATOCRIT 32.5 % (35.0-46.0); HEMO FLAGS DIFF FINAL; LYMPH % 9.6 % (9.0-44.0); MEAN CELL VOLUME 90.7 FL (80.0-100.0); MEAN CORPUSCULAR HGB CONC 34.1 % (32.0-36.0); MONO % 10.9 % (0.0-8.0); NEUT % 78.3 % (16.0-70.0); PLATELET COUNT 130 TH/MM3 (150-450); RED BLOOD COUNT 3.59 MIL/MM3 (4.00-5.30); WHITE BLOOD COUNT 9.9 TH/MM3 (4.0-11.0)
--- NOTE | 2017-05-11 05:26 | RADRPT ---
EXAM DATE/TIME: 05/11/2017 04:35 [facility] COMPARISON: CHEST SINGLE AP, May 10, 2017, 4:41. INDICATIONS : Short of breath. MEDICAL HISTORY : Diabetes mellitus type II. Hypertension Hyperlipidemia SURGICAL HISTORY : Cholecystectomy. ENCOUNTER: Subsequent ACUITY: 1 week PAIN SCORE: 0/10 LOCATION: Bilateral chest FINDINGS: The cardiac silhouette is enlarged in transverse diameter. There is left lower lobe atelectasis versu s pneumonia. There is prominence of the central pulmonary vasculature with indistinct vascular margin s compatible with vascular congestion but no evidence of overt failure. CONCLUSION: 1. Cardiomegaly and findings of vascular congestion without overt failure. There has been no signific ant change when compared to the prior exam. 2. Left lower lobe atelectasis versus pneumonia. Laith Coe MD on May 11, 2017 at 5:24 Board Certified Radiologist. This report was verified electronically.
[2017-05-11 05:41] LABS: ALKALINE PHOSPHATASE 94 U/L (45-117); ALT (GPT) 53 U/L (10-53); ANION GAP 11 MEQ/L (5-15); AST (GOT) 75 U/L (15-37); BICARBONATE 19.8 MEQ/L (21.0-32.0); BLOOD UREA NITROGEN 25 MG/DL (7-18); CHLORIDE 113 MEQ/L (98-107); GLOMERULAR FILTRATION RATE 23 ML/MIN (>89); MAGNESIUM 1.5 MG/DL (1.5-2.5); POTASSIUM 3.8 MEQ/L (3.5-5.1); SODIUM (NA) 144 MEQ/L (136-145); TOTAL BILIRUBIN ADULT 1.1 MG/DL (0.2-1.0)
[2017-05-11] MEDS: CHLORHEXIDINE 0.12% (ORAL KIT) 15 ML CUP MT SCH ×2 (08:00→19:51)
[2017-05-11] MEDS: SODIUM CHLORIDE 0.9% FLUSH 10 ML FLUSH IV FLUSH SCH ×2 (09:00→19:52)
[2017-05-11] MEDS: ASPIRIN EC 81 MG TABEC PO SCH (09:00)
[2017-05-11] MEDS: DIVALPROEX SODIUM E.R. 500 MG TAB PO SCH (09:00)
[2017-05-11] MEDS: ARTIFICIAL TEARS OPTH OINT 3.5 APPLIC/3.5 GM TUBO EACH EYE SCH ×2 (09:00→19:52)
[2017-05-11] MEDS: levETIRAcetam 1000 MG INJ 100 ML IV SCH ×2 (10:43→19:51)
[2017-05-11] MEDS: CARVEDILOL 6.25 MG TAB PO SCH ×2 (10:45→19:51)
[2017-05-11] MEDS: DOCUSATE SODIUM 50 MG/SENNA 8.6 MG TAB PO SCH ×2 (10:45→19:51)
[2017-05-11] MEDS: LACTULOSE SYRUP 20 GM/30 ML CUP OG-TUBE SCH (10:45)
--- NOTE | 2017-05-11 14:55 | PD.CARD.PN ---
Subjective Subjective Remarks intubated, unresponsive off sedation Objective Medications Current Medications Medications (Trade) Dose Ordered Sig/Scarlett Route Start Time Stop Time Status Last Admin Propofol 100 ml @ 3.9 mls/hr TITRATE PRN IV 05/06/17 21:30 05/09/17 04:10 Fentanyl Citrate 250 ml @ 5 mls/hr TITRATE PRN IV 05/06/17 21:30 05/08/17 22:23 (Brethine Inj) 1 mg UNSCH PRN SQ 05/06/17 22:45 Sodium Chloride 1,000 ml @ 100 mls/hr Q10H IV 05/06/17 23:28 Future Hold 05/07/17 20:07 (Tylenol) 650 mg Q6H PRN PO 05/06/17 23:30 05/09/17 15:41 (fentaNYL INJ) 50 mcg Q1H PRN IV PUSH 05/06/17 23:30 (Zofran Inj) 4 mg Q6H PRN IV PUSH 05/06/17 23:30 (Albuterol Neb) 2.5 mg Q2HR NEB PRN INH 05/06/17 23:30 Miscellaneous Information 1 Q361D XX 05/06/17 23:30 (Chlorhexidine 2% Cloth) 3 pack Taper DAILY@04 TOP 05/07/17 04:00 05/03/18 03:59 05/11/17 04:00 (Chlorhexidine 2% Cloth) 3 pack UNSCH PRN TOP 05/06/17 23:30 (Aggie-Colace) 1 tab BID PO 05/07/17 09:00 05/11/17 10:45 (Milk Of Magnesia Liq) 30 ml Q12H PRN PO 05/06/17 23:30 (Senokot) 17.2 mg Q12H PRN PO 05/06/17 23:30 (Dulcolax Supp) 10 mg DAILY PRN RECTAL 05/06/17 23:30 (Peridex 0.12% Liq) 15 ml BID@08,20 MT 05/07/17 08:00 05/11/17 08:00 (Pepcid Inj) 10 mg Q12H IV PUSH 05/07/17 06:00 05/11/17 04:10 (Ativan Inj) 1 mg Q1H PRN IV PUSH 05/07/17 04:30 (Versed Inj) 2 mg Q1H PRN IV PUSH 05/07/17 04:30 Midazolam HCl 100 ml @ 2 mls/hr TITRATE PRN IV 05/07/17 04:30 05/10/17 13:13 Cisatracurium Besylate 100 mg/ Sodium Chloride 250 ml @ 50.73 mls/ hr TITRATE PRN IV 05/07/17 05:00 05/08/17 11:32 (Lacrilube Opht Oint) 1 applic Q4H PRN EACH EYE 05/07/17 04:30 05/08/17 19:37 (NS Flush) 2 ml BID IV FLUSH 05/07/17 09:00 05/11/17 09:00 (NS Flush) 2 ml UNSCH PRN IV FLUSH 05/07/17 04:30 Miscellaneous Information 0 ml @ 0 mls/hr UNSCH IV 05/07/17 04:30 (Heparin Inj) 5,000 units Q12H SQ 05/07/17 05:00 05/11/17 04:10 Norepinephrine Bitartrate 4 mg/ Sodium Chloride 250 ml @ 7.5 mls/hr TITRATE PRN IV 05/07/17 05:15 05/09/17 05:08 Valproate Sodium 500 mg/Sodium Chloride 105 ml @ 105 mls/hr Q24H IV 05/07/17 09:00 Future Hold 05/07/17 08:50 (Lacrilube Opht Oint) 1 applic Q12HR EACH EYE 05/07/17 09:00 05/11/17 09:00 (Versed Inj) 2 mg Q15M PRN IV PUSH 05/07/17 08:15 (Ecotrin Ec) 81 mg DAILY PO 05/08/17 09:00 05/10/17 08:26 Piperacillin Sod/ Tazobactam Sod 50 ml @ 100 mls/hr Q6H IV 05/07/17 09:00 05/11/17 10:44 (Lactulose Liq) 30 ml DAILY OG-TUBE 05/07/17 09:00 05/11/17 10:45 (D50w (Vial) Inj) 50 ml UNSCH PRN IV PUSH 05/08/17 00:30 (Glucagon Inj) 1 mg UNSCH PRN OTHER 05/08/17 00:30 (NovoLOG SUPPLEMENTAL SCALE) 1 Q4H SQ 05/08/17 00:30 05/11/17 12:30 Midazolam HCl 100 ml @ 2 mls/hr TITRATE PRN IV 05/09/17 00:15 Levetriacetam 100 ml @ 400 mls/hr Q12HR IV 05/10/17 02:15 05/11/17 10:43 Diltiazem HCl 125 mg/Sodium Chloride 125 ml @ 5 mls/hr TITRATE PRN IV 05/10/17 09:30 05/10/17 10:35 (Trandate Inj) 20 mg Q4H PRN IV 05/10/17 10:15 (Duoneb Neb) 1 ampule Q6HR NEB INH 05/10/17 16:00 05/11/17 08:21 Pharmacy Profile Note 0 ml @ 0 mls/hr UNSCH OTHER 05/10/17 10:30 Diltiazem HCl 125 mg/Sodium Chloride 125 ml @ 5 mls/hr TITRATE PRN IV 05/10/17 12:00 05/10/17 22:31 (Depakote Er) 500 mg DAILY PO 05/10/17 12:00 05/10/17 13:13 (Coreg) 6.25 mg BID PO 05/10/17 11:30 05/11/17 10:45 Vancomycin HCl 1500 mg/Sodium Chloride 515 ml @ 250 mls/hr Q12H IV 05/10/17 13:00 Future Hold 05/11/17 01:08 Vital Signs / I&O Vital Signs Date Time Temp Pulse Resp B/P (MAP) Pulse Ox O2 Delivery O2 Flow Rate FiO2 05/11/17 13:23 98 35 05/11/17 08:18 99 35 05/11/17 06:00 95 05/11/17 04:00 100.2 98 16 176/80 (112) 98 173/87 (115) 05/11/17 04:00 40 05/11/17 04:00 98 05/11/17 03:48 98 40 05/11/17 02:00 99 05/11/17 00:47 99 40 05/11/17 00:00 97 05/11/17 00:00 40 05/11/17 00:00 100.4 97 16 167/79 (108) 99 167/85 (112) 05/10/17 22:31 97 166/86 05/10/17 22:00 97 05/10/17 20:50 100 40 05/10/17 20:00 99.7 102 17 175/82 (113) 96 167/86 (113) 05/10/17 20:00 102 05/10/17 20:00 40 05/10/17 18:00 99 05/10/17 16:00 99.4 97 16 184/89 (120) 97 179/89 (119) 05/10/17 16:00 97 05/10/17 16:00 40 05/10/17 15:01 97 40 I/O 05/10/17 05/10/17 05/10/17 05/11/17 05/11/17 05/11/17 07:00 15:00 23:00 07:00 15:00 23:00 Intake Total 262 ml 150 ml 1015 ml 560 ml Output Total 100 ml 15 ml 75 ml Balance 162 ml 150 ml 1000 ml 485 ml Intake IV Total 262 ml 150 ml 765 ml 500 ml Other 250 ml 60 ml Output Urine Total 100 ml 15 ml 75 ml # Bowel Movements 2 Physical Exam GENERAL: SKIN: Warm and dry. HEAD: Normocephalic. EYES: No scleral icterus. No injection or drainage. NECK: Supple, trachea midline. No JVD or lymphadenopathy. CARDIOVASCULAR: Regular rate and rhythm without murmurs, gallops, or rubs. RESPIRATORY: Breath sounds equal bilaterally. No accessory muscle use. GASTROINTESTINAL: Abdomen soft, non-tender, nondistended. MUSCULOSKELETAL: No cyanosis, or edema. BACK: Nontender without obvious deformity. No CVA tenderness. Laboratory Laboratory Tests Test 05/11/17 04:05 White Blood Count 9.9 TH/MM3 Red Blood Count 3.59 MIL/MM3 Hemoglobin 11.1 GM/DL Hematocrit 32.5 % Mean Corpuscular Volume 90.7 FL Mean Corpuscular Hemoglobin 31.0 PG Mean Corpuscular Hemoglobin Concent 34.1 % Red Cell Distribution Width 14.0 % Platelet Count 130 TH/MM3 Mean Platelet Volume 9.9 FL Neutrophils (%) (Auto) 78.3 % Lymphocytes (%) (Auto) 9.6 % Monocytes (%) (Auto) 10.9 % Eosinophils (%) (Auto) 0.2 % Basophils (%) (Auto) 1.0 % Neutrophils # (Auto) 7.8 TH/MM3 Lymphocytes # (Auto) 1.0 TH/MM3 Monocytes # (Auto) 1.1 TH/MM3 Eosinophils # (Auto) 0.0 TH/MM3 Basophils # (Auto) 0.1 TH/MM3 CBC Comment DIFF FINAL Differential Comment Blood Urea Nitrogen 25 MG/DL Creatinine 2.64 MG/DL Random Glucose 203 MG/DL Total Protein 6.5 GM/DL Albumin 2.2 GM/DL Calcium Level 8.4 MG/DL Magnesium Level 1.5 MG/DL Alkaline Phosphatase 94 U/L Aspartate Amino Transf (AST/SGOT) 75 U/L Alanine Aminotransferase (ALT/SGPT) 53 U/L Total Bilirubin 1.1 MG/DL Sodium Level 144 MEQ/L Potassium Level 3.8 MEQ/L Chloride Level 113 MEQ/L Carbon Dioxide Level 19.8 MEQ/L Anion Gap 11 MEQ/L Estimat Glomerular Filtration Rate 23 ML/MIN Imaging Last 24 hours Impressions Chest X-Ray 05/11/17 0600 Signed Impressions: Service Date/Time: Thursday, May 11, 2017 04:35 - CONCLUSION: 1. Cardiomegaly and findings of vascular congestion without overt failure. There has been no significant change when compared to the prior exam. 2. Left lower lobe atelectasis versus pneumonia. Laith Coe MD Assessment and Plan Problem List: (1) CAD (coronary artery disease) ICD Codes: I25.10 - Atherosclerotic heart disease of [place] coronary artery without angina pectoris (2) CHRONIC OBSTRUCTIVE PULMON DISEASE W ACUTE LOWER RESP INFCT ICD Codes: J44.0 - CHRONIC OBSTRUCTIVE PULMON DISEASE W ACUTE LOWER RESP INFCT Status: Acute (3) Cardiomyopathy ICD Codes: I42.9 - Cardiomyopathy Status: Acute (4) Cardiopulmonary arrest ICD Codes: I46.9 - Cardiac arrest, cause unspecified Status: Acute (5) Diabetes mellitus ICD Codes: E11.9 - Type 2 diabetes mellitus without complications Status: Acute Assessment and Plan 1.) Cardiomyopathy - euvolemic, obie and beta navya held due to recent cardiogenic shock and uncertain neurologic status 2.) CAD - continue aspirin, statin held due to shock liver and elevated lfts Aguila Early MD May 11, 2017 14:55
--- NOTE | 2017-05-11 16:06 | HHI.CCPN ---
Subjective Remarks/Hospital Course 56-year-old female with past medical history of hypertension, chronic systolic heart failure, diabetes, COPD bipolar disorder, seizure disorder who presented to [facility] emergency department via [facility] following cardiac arrest. [facility] was originally called for shortness of breath and when they arrived patient was unresponsive and in PEA. Combitube was placed. CPR was initiated and patient was administered epinephrine 4, 1 amp bicarbonate, Narcan 2 mg prior to arrival via left tibial I/O. Blood glucose was 334. Exact duration of prehospital CPR is unclear. Combitube was removed and she was intubated upon arrival. Patient had ROSC 5 minutes after arrival. She received additional epinephrine 2 in the ED. She also received 1 L normal saline bolus, vancomycin, Zosyn in the ED. Critical care medicine is consulted for admission. EKG has no acute ischemia. SUBJ 05/07: Intubated sedated neuromuscularly paralyzed. Induced hypothermia initiated at 7 AM, 2-D echo shows EF 25-30%, mild to moderate MR. Serial troponins negative 05/08: Remains neuromuscularly paralyzed. Hypothermia will be completed by the known and rewarming was started. Remains off inotropes and pressors 05/09: Hypothermia protocol completed, placed overnight on Versed also in addition to propofol and fentanyl for tachycardia and asynchrony. Currently patient while on sedation do not open eyes with very slight withdrawal to pain 05/10: Developed Afib with RVR yesterday with HR in 200's DC cardioverted at night by Dr. Chu. Placed back on Versed. RN reports paroxysmal A fib. EEG pending at this time for subclinical sz. EEG 05/07 burst suppression pattern. Neuro prognosis poor 05/11: No neuro improvement. Creat worsening, nephrology consulted. EEG severe encephalopathy consistent with anoxic injury. Palliative care is following Objective Vital Signs Date Time Temp Pulse Resp B/P (MAP) Pulse Ox O2 Delivery O2 Flow Rate FiO2 05/11/17 13:23 98 35 05/11/17 06:00 95 05/11/17 04:00 100.2 16 176/80 (112) 173/87 (115) Intake and Output 05/11/17 05/11/17 05/11/17 07:59 15:59 23:59 Intake Total 560 ml Output Total 75 ml Balance 485 ml Result Diagram: 05/11/17 0405 05/11/17 0405 Objective Remarks Drips: Versed GENERAL: Obese female who is intubated SKIN: Warm and dry. HEAD: Atraumatic. Normocephalic. EYES: Bilateral exophthalmus. Pupils equal and round, 2mm ENT: No nasal bleeding or discharge. Orotracheally intubated NECK: Trachea midline. No JVD appreciated. No meningismus CARDIOVASCULAR: Regular rate and rhythm, sinus rhythm on the monitor with rate in the 70s. Paroxysmal A Fib RESPIRATORY: ACV tidal volume 550/rate 16/P5. Breath sounds are equal bilaterally without wheezes Rales or rhonchi. GASTROINTESTINAL: Abdomen protuberant soft. No appreciable tenderness rebound or guarding. Bowel sounds are present. : Benoit catheter is in place MUSCULOSKELETAL: Extremities without clubbing, cyanosis, or edema. No obvious deformities. NEUROLOGICAL: Off sedation. No spontaneous eye opening, spontaneous movements. No withdrawal to pain A/P Problem List: (1) Chronic systolic heart failure ICD Code: I50.22 - Chronic systolic (congestive) heart failure Status: Chronic (2) Exophthalmos of both eyes ICD Code: H05.20 - Unspecified exophthalmos Status: Chronic (3) HTN (hypertension) ICD Code: I10 - Essential (primary) hypertension Status: Chronic (4) HLD (hyperlipidemia) ICD Code: E78.5 - Hyperlipidemia, unspecified Status: Chronic (5) Cardiogenic shock ICD Code: R57.0 - Cardiogenic shock Status: Acute (6) Acute respiratory failure with hypercapnia ICD Code: J96.02 - Acute respiratory failure with hypercapnia Status: Acute (7) Obesity (BMI 30-39.9) ICD Code: E66.9 - Obesity, unspecified Status: Chronic (8) CHF (congestive heart failure) ICD Code: I50.9 - CHF (congestive heart failure) Status: Acute (9) Bipolar disorder ICD Code: F31.9 - Bipolar affective disorder Status: Chronic (10) COPD (chronic obstructive pulmonary disease) ICD Code: J44.9 - Chronic obstructive pulmonary disease Status: Chronic (11) Tobacco abuse ICD Code: Z72.0 - Tobacco use Status: Chronic Assessment and Plan NEURO/PSYCH: Acute anoxic encephalopathy, severe Bipolar disorder Possible subclinical sz Status post completion of induced therapeutic hypothermia. CT brain - negative. initiated at 0700 05/07/17, completed 05/08/17 Daughter consented and placed heat exchange catheter No neurologic improvement yet. Neurology Dr. Solitario Obtained Depakote level. 48. Was on Depakote for bipolar. Will restart Depakote. Lactulose 30 daily. Ammonia level down to 31 Neg urine drug screen, APAP, ASA level. Carboxyhemoglobin level mildly elevated, may be secondary to tobacco abuse. Resumed Neurontin 100 day. Holding Wellbutrin XL. EEG shows severe encephalopathy, burst suppression pattern. Repeat EEG severe encephalopathy Versed gtt off. Off Nimbex RESP: Acute hypercapnic respiratory failure COPD Tobacco abuse ACV tidal volume 550/rate 16/P5/F I/O to 60%. Ventilator bundle. DuoNeb q6 hours. Albuterol q2 hours prn. No Wheezing No Vent weaning until mental status improved CV: PEA cardiac arrest Post cardiac arrest syndrome with shock Afib with RVR Chronic systolic heart failure with ejection fraction 15-20% (25-30 on echo today) Nonobstructive Coronary artery disease Essential Hypertension Hyperlipidemia Holding home antihypertensives due to hypotension ( Diovan 160 mg by mouth daily ). Restarted coreg DCCV for Afib RVR with HR 200/min. Continue Cardizem for paroxysmal A fib Serial lactic acid. EKG normal sinus rhythm rate of 99. No apparent acute ischemia. Follow-up serial EKGs and cardiac markers-negative. 2-D echo EF 25-30%. Cardiology Dr. Early Etiology of cardiac arrest unclear. Most likely due to hypercapnia and respiratory acidosis - though her presentation was not remarkable for wheezing. Resumed ASA after head CT resulted. Holding statin due to elevated LFTs. No betablocker or obie-I due to hypotension. GI: GERD Transaminitis, probable ischemic hepatopathy. Orogastric tube to low intermittent and wall suction. Output is nonbloody, no coffee grounds. RUQ us-fatty liver, hepatitis panel pending Start Tube feeds with Glucerna FEN/RENAL: MARQUEZ Lactic acidemia Hyperphosphatemia Benoit in place. Monitor intake and output. Monitor electrolytes and replace as indicated. Hold home NSAID's. Creat stable Nephrology consult for worsening creatinine ID: UTI Bacteremia with strep viridans, Coag neg staph, pleomorphic GPR Received Zosyn and vancomycin in the emergency department. Urine and blood cultures have been sent. Follow-up cultures Continue Zosyn. Resumed vancomycin HEME: No acute hematologic issues. ENDO: Diabetes mellitus with acute hyperglycemia Hold metformin, glipizide, lantus. Expect hyperglycemia to worsen during cooling. Insulin drip algorithm #2. Thyroid studies-essentially euthyroid PROPH: Sq heparin for DVT prophylaxis. Famotidine for stress ulcer prophylaxis and history of GERD ACCESS: Right femoral art line placed by ED physician 05/06/17, removed. L femoral heat exchange catheter and L femoral art line placed 05/07/17 Next of kin is Cheyanne, her only daughter. She is not . Cheyanne lives in [place]. Has been informed of risk of anoxic brain injury and discussed rationale for induced therapeutic hypothermia. Dr. Brandt Discussed with Dr. Morrison Critical care time 35 minutes exclusive of separately billable procedures. ALT CODE. Palliative care consulted. Prognosis appears very poor. Recommend comfort measures if family agreeable Problem Qualifiers (1) HTN (hypertension): Qualified Codes: I10 - Essential (primary) hypertension Jaqueline Umanzor MD May 11, 2017 16:06
--- NOTE | 2017-05-11 16:08 | HHI.HCPN ---
Reason for visit a. To assist with evaluation and management of symptoms including: Encephalopathy, possible seizures b. To assist medical decision maker(s) with: better understanding of current medical conditions; weighing benefits/burdens of medical treatment options; making medical treatment decisions. . Subjective/Interval History INTERVAL NOTE: The patient remains unresponsive. She is afebrile, is not showing signs of neurologic recovery. The repeat EEG remains consistent with severe encephalopathy. The patient's daughter is to arrive tomorrow, which also is beyond 72 hours following re- warming (when the neurologic exam carries more weight regarding prognosis). . Family/friend interactions No answer on daughter's phone again . Advance Directives Living Will: Never completed Health Care Surrogate: Never completed Durable Power of Managed Services Consultant: Never completed Objective Vital Signs Date Time Temp Pulse Resp B/P (MAP) Pulse Ox O2 Delivery O2 Flow Rate FiO2 05/11/17 13:23 98 35 05/11/17 08:18 99 35 05/11/17 06:00 95 05/11/17 04:00 100.2 98 16 176/80 (112) 98 173/87 (115) 05/11/17 04:00 40 05/11/17 04:00 98 05/11/17 03:48 98 40 05/11/17 02:00 99 05/11/17 00:47 99 40 05/11/17 00:00 97 05/11/17 00:00 40 05/11/17 00:00 100.4 97 16 167/79 (108) 99 167/85 (112) 05/10/17 22:31 97 166/86 05/10/17 22:00 97 05/10/17 20:50 100 40 05/10/17 20:00 99.7 102 17 175/82 (113) 96 167/86 (113) 05/10/17 20:00 102 05/10/17 20:00 40 05/10/17 18:00 99 Intake & Output 05/11/17 05/11/17 07:00 19:00 Intake Total 760 ml Output Total 75 ml Balance 685 ml Intake IV Total 700 ml Other 60 ml Output Urine Total 75 ml Physical Exam CONSTITUTIONAL/GENERAL: This is an adequately nourished patient, in no apparent distress. Intubated in the [facility] EYES: Pupils equal and round, about 1-1.5 mm each, and I am unable to see any reaction to light. NECK: Trachea midline. Supple, nontender. No palpable thyroid enlargement or nodularity. CARDIOVASCULAR: Regular rate and rhythm without murmurs, gallops, or rubs. No JVD. Peripheral pulses barely perceptible posterior tibial. RESPIRATORY/CHEST: Symmetric, unlabored respirations on the ventilator. Scattered rhonchi are heard GASTROINTESTINAL: Abdomen soft, nondistended, obese. No hepato-splenomegaly, or palpable masses. No guarding. Bowel sounds present. GENITOURINARY: Without palpable bladder distension. Benoit catheter in place. MUSCULOSKELETAL: Extremities without clubbing, cyanosis, or edema. No joint tenderness or effusion noted. No calf tenderness. No mottling or clubbing. NEUROLOGICAL: Unresponsive to voice, touch, or painful stimuli PSYCHIATRIC: Unable to evaluate due to clinical condition . Diagnostic Tests Laboratory Laboratory Tests Test 05/09/17 05:30 05/10/17 04:08 05/11/17 04:05 White Blood Count 9.0 TH/MM3 (4.0-11.0) 9.3 TH/MM3 (4.0-11.0) 9.9 TH/MM3 (4.0-11.0) Red Blood Count 3.44 MIL/MM3 (4.00-5.30) 3.59 MIL/MM3 (4.00-5.30) 3.59 MIL/MM3 (4.00-5.30) Hemoglobin 10.7 GM/DL (11.6-15.3) 10.9 GM/DL (11.6-15.3) 11.1 GM/DL (11.6-15.3) Hematocrit 32.1 % (35.0-46.0) 33.4 % (35.0-46.0) 32.5 % (35.0-46.0) Mean Corpuscular Volume 93.6 FL (80.0-100.0) 93.1 FL (80.0-100.0) 90.7 FL (80.0-100.0) Mean Corpuscular Hemoglobin 31.2 PG (27.0-34.0) 30.4 PG (27.0-34.0) 31.0 PG (27.0-34.0) Mean Corpuscular Hemoglobin Concent 33.3 % (32.0-36.0) 32.7 % (32.0-36.0) 34.1 % (32.0-36.0) Red Cell Distribution Width 14.0 % (11.6-17.2) 14.2 % (11.6-17.2) 14.0 % (11.6-17.2) Platelet Count 121 TH/MM3 (150-450) 108 TH/MM3 (150-450) 130 TH/MM3 (150-450) Mean Platelet Volume 9.9 FL (7.0-11.0) 9.1 FL (7.0-11.0) 9.9 FL (7.0-11.0) Neutrophils (%) (Auto) 83.3 % (16.0-70.0) 81.6 % (16.0-70.0) 78.3 % (16.0-70.0) Lymphocytes (%) (Auto) 10.4 % (9.0-44.0) 10.6 % (9.0-44.0) 9.6 % (9.0-44.0) Monocytes (%) (Auto) 5.3 % (0.0-8.0) 6.7 % (0.0-8.0) 10.9 % (0.0-8.0) Eosinophils (%) (Auto) 0.4 % (0.0-4.0) 0.2 % (0.0-4.0) 0.2 % (0.0-4.0) Basophils (%) (Auto) 0.6 % (0.0-2.0) 0.9 % (0.0-2.0) 1.0 % (0.0-2.0) Neutrophils # (Auto) 7.5 TH/MM3 (1.8-7.7) 7.6 TH/MM3 (1.8-7.7) 7.8 TH/MM3 (1.8-7.7) Lymphocytes # (Auto) 0.9 TH/MM3 (1.0-4.8) 1.0 TH/MM3 (1.0-4.8) 1.0 TH/MM3 (1.0-4.8) Monocytes # (Auto) 0.5 TH/MM3 (0-0.9) 0.6 TH/MM3 (0-0.9) 1.1 TH/MM3 (0-0.9) Eosinophils # (Auto) 0.0 TH/MM3 (0-0.4) 0.0 TH/MM3 (0-0.4) 0.0 TH/MM3 (0-0.4) Basophils # (Auto) 0.1 TH/MM3 (0-0.2) 0.1 TH/MM3 (0-0.2) 0.1 TH/MM3 (0-0.2) CBC Comment DIFF FINAL DIFF FINAL DIFF FINAL Differential Comment Blood Urea Nitrogen 16 MG/DL (7-18) 15 MG/DL (7-18) 25 MG/DL (7-18) Creatinine 1.09 MG/DL (0.50-1.00) 1.05 MG/DL (0.50-1.00) 2.64 MG/DL (0.50-1.00) Random Glucose 203 MG/DL (74-106) 193 MG/DL (74-106) 203 MG/DL (74-106) Total Protein 6.1 GM/DL (6.4-8.2) 6.6 GM/DL (6.4-8.2) 6.5 GM/DL (6.4-8.2) Albumin 2.4 GM/DL (3.4-5.0) 2.4 GM/DL (3.4-5.0) 2.2 GM/DL (3.4-5.0) Calcium Level 8.0 MG/DL (8.5-10.1) 8.4 MG/DL (8.5-10.1) 8.4 MG/DL (8.5-10.1) Phosphorus Level 4.1 MG/DL (2.5-4.9) Magnesium Level 1.5 MG/DL (1.5-2.5) 1.5 MG/DL (1.5-2.5) Alkaline Phosphatase 87 U/L (45-117) 95 U/L (45-117) 94 U/L (45-117) Aspartate Amino Transf (AST/SGOT) 64 U/L (15-37) 68 U/L (15-37) 75 U/L (15-37) Alanine Aminotransferase (ALT/SGPT) 88 U/L (10-53) 70 U/L (10-53) 53 U/L (10-53) Total Bilirubin 0.6 MG/DL (0.2-1.0) 0.9 MG/DL (0.2-1.0) 1.1 MG/DL (0.2-1.0) Sodium Level 144 MEQ/L (136-145) 145 MEQ/L (136-145) 144 MEQ/L (136-145) Potassium Level 3.8 MEQ/L (3.5-5.1) 3.9 MEQ/L (3.5-5.1) 3.8 MEQ/L (3.5-5.1) Chloride Level 111 MEQ/L (98-107) 112 MEQ/L (98-107) 113 MEQ/L (98-107) Carbon Dioxide Level 21.7 MEQ/L (21.0-32.0) 22.4 MEQ/L (21.0-32.0) 19.8 MEQ/L (21.0-32.0) Anion Gap 11 MEQ/L (5-15) 11 MEQ/L (5-15) 11 MEQ/L (5-15) Estimat Glomerular Filtration Rate 63 ML/MIN (>89) 65 ML/MIN (>89) 23 ML/MIN (>89) Result Diagram: 05/11/17 0405 05/11/17 0405 Imaging Last Impressions Chest X-Ray 05/11/17 0600 Signed Impressions: Service Date/Time: Thursday, May 11, 2017 04:35 - CONCLUSION: 1. Cardiomegaly and findings of vascular congestion without overt failure. There has been no significant change when compared to the prior exam. 2. Left lower lobe atelectasis versus pneumonia. Laith Coe MD Abdomen Ultrasound 05/07/17 0000 Signed Impressions: Service Date/Time: Sunday, May 07, 2017 14:19 - CONCLUSION: 1. Echogenic liver compatible with fatty infiltration or hepatocellular disease. 2. Cholecystectomy Laith Coe MD Head CT 05/06/172123 Signed Impressions: Service Date/Time: Sunday, May 07, 2017 03:14 - CONCLUSION: Normal examination. Noé Ybarra MD CT Angiography 05/06/17 0000 Signed Impressions: Service Date/Time: Sunday, May 07, 2017 03:21 - CONCLUSION: 1. No pulmonary embolus. 2. Bibasilar areas of consolidation or atelectasis being worse on the left. There are minimal bilateral pleural effusions. Noé Ybarra MD Procedures Bilateral femoral arterial lines and left femoral heat exchange catheter . Assessment and Plan Disease Oriented Problem List: (1) anoxic brain injury, severe encephalopathy (2) PEA cardiac arrest 05/06/17 (3) respiratory failure s/p cardiac arrest and resuscitation (4) transaminitis, likely due to hypoxic insult (5) history of CHF, ejection fraction 15-20% in 2014 (6) acute kidney injury (7) coronary artery disease, moderate disease on cath in 2013 (8) insulin-dependent diabetes (9) COPD, moderate (10) history of seizure disorder (11) unspecified but significant psychiatric illness, disabling (12) depression (13) hyperlipidemia (14) hypertension (15) GERD (16) chronic back pain (17) peripheral neuropathy (18) anxiety Symptom Scale: (1) anxiety 0-10 Scale: Unable to quantify (2) dyspnea 0-10 Scale: Unable to quantify (3) encephalopathy 0-10 Scale: Unable to quantify Pertinent Non-Medical Issues Psychosocial: Unmarried, 1 daughter in [place], disabled via psychiatric diagnoses for many years. Was living alone. Spiritual: Unaffiliated nondenominational Legal: The patient is unmarried and has just one child, katarina Edward in [place]. The patient is very unlikely to regain capacity for decision-making, so Cheyanne is the proxy decision-maker. Ethical issues impacting care: None . Important Contacts Patient's daughter/HCP Cheyanne Garcia [phone] . Prognosis The patient's prognosis is extremely poor. She has underlying moderate or severe pulmonary and cardiac disease, and now has an apparent significant anoxic brain injury. . Code Status: Alternative Code (intubation only) Plan * ALTERNATE CODE, intubation only per request of daughter 05/10/17 * DECISION-MAKING: The patient is unmarried and has just one child, katarina Edward in [place]. The patient is very unlikely to regain capacity for decision-making, so Cheyanne is the proxy decision-maker. * GOALS: The patient's daughter Cheyanne notes that the patient had spoken with her more than once in recent years about healthcare goals and wishes, informing the daughter that she would not want to be kept alive artificially if the prognosis was poor. The patient's daughter requested DNR status, and she will consider withdrawal of life support if the encephalopathy from the anoxic brain injury does not improve significantly in the upcoming hours and days. * SYMPTOMS: The patient has long-term underlying psychiatric issues including anxiety, but there is no clear evidence of symptoms at this time. Any dyspnea is being managed by mechanical ventilation. It is possible she has pain from the resuscitation efforts, but there are no obvious signs of that. No further medication recommendations at this time. * The patient's daughter Cheyanne is set to arrive into town late no. * Hopefully we will be able to keep the patient off of all sedation now so as to make evaluation of her encephalopathy as accurate as possible. * Palliative Care will continue to follow the patient during this hospitalization. . Time Spent Total Floor Time (mins): 36 Face to Face Time (mins): 16 >50% Counseling/Coord of Care: Yes (d/w RN) Attestation To help prompt me to consider important information that might be impacting today's encounter and assessment, information from prior notes written by myself or my colleagues may have been "brought forward" into today's note. My signature on this note, however, is an attestation that I personally performed the exam, history, and/or decision-making noted today, and, unless otherwise indicated, the interactions with patient, family, and staff as well as the review of records all occurred today. I also attest that the listed assessment and stated plan reflect my best clinical judgment today based on the combination of historical information, prior notes, and today's exam/ interactions. When time spent is documented, it refers only to time spent today by the signer, or if indicated, combined time spent today by collaborating physician/nurse practitioner. Marah Adhikari MD May 11, 2017 16:08
[2017-05-11] MEDS: DILTIAZEM 125 MG/NS 100 ML IV PRN ×2 (18:43)
--- NOTE | 2017-05-11 21:21 | PD.CONS ---
HPI Service Nephrology Consult Requested By Dr. Umnazor Reason for Consult Acute renal failure Primary Care Physician Unknown History of Present Illness Patient is a 56-year-old Afro-Tongan female with obesity, COPD, hypertension who had PEA arrest and has anoxic brain injury going into multiorgan failure with acute renal insufficiency she is passing urine, I spoke to the staff and plan is to wait for daughter to arrive palliative care is following, Creatinine went up to 2.[address] angiogram upon admission several days ago but her creatinine recently changed She developed atrial fibrillation requiring cardioversion as well Review of Systems ROS Limitations: Clinical Condition Past Family Social History Allergies: Coded Allergies: No Known Allergies (Verified , 05/06/17) Past Medical History OPD Diabetes Hypertension Chronic systolic heart failure with an ejection fraction of 15-20% GERD Bipolar disorder Hyperlipidemia Allergic rhinitis Peripheral neuropathy Past Surgical History Cholecystectomy Bilateral tubal ligation Cardiac catheterization 03/27/14 - EF 15-20%. 10-20% LAD lesion, 20% ostial stenosis of the left main, 20% OM, 30-40% RCA Reported Medications Reported Meds & Active Scripts Active Atrovent HFA 12.9 GM Inh (Ipratropium [place]) 17 Mcg/Actuation Aer 2 Puff INH Q6HR PRN Ventolin Hfa 18 GM Inh (Albuterol Sulfate) 90 Mcg/Act Aer 2 Puff INH Q4H PRN Cetirizine (Cetirizine HCl) 10 Mg Tab 10 Mg PO DAILY Carvedilol 6.25 Mg Tab 6.25 Mg PO BID Lasix (Furosemide) 20 Mg Tab 20 Mg PO DAILY Diclofenac Sodium DR (Diclofenac Sodium) 75 Mg Tabdr 75 Mg PO BID Glucotrol (Glipizide) 5 Mg Tab 5 Mg PO BIDAC Take 30 minutes before a meal Gabapentin 100 Mg Cap 100 Mg PO HS Lantus Inj (Insulin Glargine) 1,000 Unit/10 Ml Vial 24 Units SQ HS Ecotrin Low Strength (Aspirin) 81 Mg Tabdr 81 Mg PO DAILY Zocor (Simvastatin) 40 Mg Tab 40 Mg PO DAILY Diovan (Valsartan) 160 Mg Tab 160 Mg PO DAILY Metformin (Metformin HCl) 1,000 Mg Tab 1,000 Mg PO BIDPC With meals Reported Wellbutrin Xl 24 HR (Bupropion HCl) Unknown Strength Tab Unknown Dose PO DAILY Depakote ER (Divalproex Sodium) 500 Mg Heather 500 Mg PO DAILY Fluticasone Nasal [place] 50 Mcg/Act Naspr 50 Mcg EACH NARE BID 50 mcg/spray Active Ordered Medications Current Medications Medications (Trade) Dose Ordered Sig/Scarlett Route Start Time Stop Time Status Last Admin Propofol 100 ml @ 3.9 mls/hr TITRATE PRN IV 05/06/17 21:30 05/09/17 04:10 Fentanyl Citrate 250 ml @ 5 mls/hr TITRATE PRN IV 05/06/17 21:30 05/08/17 22:23 (Brethine Inj) 1 mg UNSCH PRN SQ 05/06/17 22:45 Sodium Chloride 1,000 ml @ 100 mls/hr Q10H IV 05/06/17 23:28 Future Hold 05/07/17 20:07 (Tylenol) 650 mg Q6H PRN PO 05/06/17 23:30 05/09/17 15:41 (fentaNYL INJ) 50 mcg Q1H PRN IV PUSH 05/06/17 23:30 (Zofran Inj) 4 mg Q6H PRN IV PUSH 05/06/17 23:30 (Albuterol Neb) 2.5 mg Q2HR NEB PRN INH 05/06/17 23:30 Miscellaneous Information 1 Q361D XX 05/06/17 23:30 (Chlorhexidine 2% Cloth) 3 pack Taper DAILY@04 TOP 05/07/17 04:00 05/03/18 03:59 05/11/17 04:00 (Chlorhexidine 2% Cloth) 3 pack UNSCH PRN TOP 05/06/17 23:30 (Aggie-Colace) 1 tab BID PO 05/07/17 09:00 05/11/17 19:51 (Milk Of Magnesia Liq) 30 ml Q12H PRN PO 05/06/17 23:30 (Senokot) 17.2 mg Q12H PRN PO 05/06/17 23:30 (Dulcolax Supp) 10 mg DAILY PRN RECTAL 05/06/17 23:30 (Peridex 0.12% Liq) 15 ml BID@08,20 MT 05/07/17 08:00 05/11/17 19:51 (Pepcid Inj) 10 mg Q12H IV PUSH 05/07/17 06:00 05/11/17 17:15 (Ativan Inj) 1 mg Q1H PRN IV PUSH 05/07/17 04:30 (Versed Inj) 2 mg Q1H PRN IV PUSH 05/07/17 04:30 Midazolam HCl 100 ml @ 2 mls/hr TITRATE PRN IV 05/07/17 04:30 05/10/17 13:13 Cisatracurium Besylate 100 mg/ Sodium Chloride 250 ml @ 50.73 mls/ hr TITRATE PRN IV 05/07/17 05:00 05/08/17 11:32 (Lacrilube Opht Oint) 1 applic Q4H PRN EACH EYE 05/07/17 04:30 05/08/17 19:37 (NS Flush) 2 ml BID IV FLUSH 05/07/17 09:00 05/11/17 19:52 (NS Flush) 2 ml UNSCH PRN IV FLUSH 05/07/17 04:30 Miscellaneous Information 0 ml @ 0 mls/hr UNSCH IV 05/07/17 04:30 (Heparin Inj) 5,000 units Q12H SQ 05/07/17 05:00 05/11/17 04:10 Norepinephrine Bitartrate 4 mg/ Sodium Chloride 250 ml @ 7.5 mls/hr TITRATE PRN IV 05/07/17 05:15 05/09/17 05:08 Valproate Sodium 500 mg/Sodium Chloride 105 ml @ 105 mls/hr Q24H IV 05/07/17 09:00 Future Hold 05/07/17 08:50 (Lacrilube Opht Oint) 1 applic Q12HR EACH EYE 05/07/17 09:00 05/11/17 19:52 (Versed Inj) 2 mg Q15M PRN IV PUSH 05/07/17 08:15 (Ecotrin Ec) 81 mg DAILY PO 05/08/17 09:00 05/10/17 08:26 Piperacillin Sod/ Tazobactam Sod 50 ml @ 100 mls/hr Q6H IV 05/07/17 09:00 05/11/17 19:52 (Lactulose Liq) 30 ml DAILY OG-TUBE 05/07/17 09:00 05/11/17 10:45 (D50w (Vial) Inj) 50 ml UNSCH PRN IV PUSH 05/08/17 00:30 (Glucagon Inj) 1 mg UNSCH PRN OTHER 05/08/17 00:30 (NovoLOG SUPPLEMENTAL SCALE) 1 Q4H SQ 05/08/17 00:30 05/11/17 19:55 Midazolam HCl 100 ml @ 2 mls/hr TITRATE PRN IV 05/09/17 00:15 Levetriacetam 100 ml @ 400 mls/hr Q12HR IV 05/10/17 02:15 05/11/17 19:51 Diltiazem HCl 125 mg/Sodium Chloride 125 ml @ 5 mls/hr TITRATE PRN IV 05/10/17 09:30 05/11/17 18:43 (Trandate Inj) 20 mg Q4H PRN IV 05/10/17 10:15 (Duoneb Neb) 1 ampule Q6HR NEB INH 05/10/17 16:00 05/11/17 21:08 Pharmacy Profile Note 0 ml @ 0 mls/hr UNSCH OTHER 05/10/17 10:30 Diltiazem HCl 125 mg/Sodium Chloride 125 ml @ 5 mls/hr TITRATE PRN IV 05/10/17 12:00 05/10/17 22:31 (Depakote Er) 500 mg DAILY PO 05/10/17 12:00 05/10/17 13:13 (Coreg) 6.25 mg BID PO 05/10/17 11:30 05/11/17 19:51 Vancomycin HCl 1500 mg/Sodium Chloride 515 ml @ 250 mls/hr Q12H IV 05/10/17 13:00 Future Hold 05/11/17 01:08 Family History Noncontributory Social History No history of smoking Physical Exam Vital Signs Vital Signs Date Time Temp Pulse Resp B/P (MAP) Pulse Ox O2 Delivery O2 Flow Rate FiO2 05/11/17 20:00 40 05/11/17 18:43 91 125/65 05/11/17 16:46 95 35 05/11/17 16:00 91 22 113/62 (79) 115/62 (79) 05/11/17 16:00 40 05/11/17 16:00 92 16 158/75 (102) 97 157/79 (105) 05/11/17 16:00 40 05/11/17 16:00 92 16 158/75 (102) 97 157/79 (105) 05/11/17 16:00 40 05/11/17 13:23 98 35 05/11/17 12:00 40 05/11/17 12:00 99.5 92 16 158/75 (102) 97 157/79 (105) 05/11/17 08:18 99 35 05/11/17 08:00 40 05/11/17 08:00 99.9 92 16 160/75 (103) 98 159/80 (106) 05/11/17 06:00 95 05/11/17 04:00 100.2 98 16 176/80 (112) 98 173/87 (115) 05/11/17 04:00 40 05/11/17 04:00 98 05/11/17 03:48 98 40 05/11/17 02:00 99 05/11/17 00:47 99 40 05/11/17 00:00 97 05/11/17 00:00 40 05/11/17 00:00 100.4 97 16 167/79 (108) 99 167/85 (112) 05/10/17 22:31 97 166/86 05/10/17 22:00 97 Physical Exam GENERAL: Well-nourished, well-developed obese sick appearing patient. Intubated SKIN: Warm and dry. HEAD: Normocephalic. EYES: No scleral icterus. No injection or drainage. NECK: Supple, trachea midline. No JVD or lymphadenopathy. CARDIOVASCULAR: Regular rate and rhythm without murmurs, gallops, or rubs. RESPIRATORY: Breath sounds equal bilaterally. Rhonchi at bases GASTROINTESTINAL: Abdomen soft, non-tender, nondistended. EXTREMITIES: No cyanosis, positive edema. NEUROLOGICAL: Obtunded Laboratory Laboratory Tests Test 05/11/17 04:05 White Blood Count 9.9 Red Blood Count 3.59 Hemoglobin 11.1 Hematocrit 32.5 Mean Corpuscular Volume 90.7 Mean Corpuscular Hemoglobin 31.0 Mean Corpuscular Hemoglobin Concent 34.1 Red Cell Distribution Width 14.0 Platelet Count 130 Mean Platelet Volume 9.9 Neutrophils (%) (Auto) 78.3 Lymphocytes (%) (Auto) 9.6 Monocytes (%) (Auto) 10.9 Eosinophils (%) (Auto) 0.2 Basophils (%) (Auto) 1.0 Neutrophils # (Auto) 7.8 Lymphocytes # (Auto) 1.0 Monocytes # (Auto) 1.1 Eosinophils # (Auto) 0.0 Basophils # (Auto) 0.1 CBC Comment DIFF FINAL Differential Comment Blood Urea Nitrogen 25 Creatinine 2.64 Random Glucose 203 Total Protein 6.5 Albumin 2.2 Calcium Level 8.4 Magnesium Level 1.5 Alkaline Phosphatase 94 Aspartate Amino Transf (AST/SGOT) 75 Alanine Aminotransferase (ALT/SGPT) 53 Total Bilirubin 1.1 Sodium Level 144 Potassium Level 3.8 Chloride Level 113 Carbon Dioxide Level 19.8 Anion Gap 11 Estimat Glomerular Filtration Rate 23 Date/Time Source Procedure Growth Status 05/06/17 21:36 Blood Peripheral Aerobic Blood Culture - Final NO GROWTH IN 5 DAYS Complete 05/06/17 21:36 Anaerobic Blood Culture - Final Viridans Streptococcus Grp Staph Sp Coagulase Negative Pleomorphic Gram Positive Rods Complete 05/07/17 06:00 Sputum Endotracheal Gram Stain - Final Complete 05/07/17 06:00 Sputum Endotracheal Sputum Culture - Final HEAVY GROWTH NORMAL RESPIRATORY JORDEN Complete 05/06/17 21:35 Urine Clean Catch Urine Culture - Final NO GROWTH IN 48 HOURS. Complete Result Diagram: 05/11/17 0405 05/11/17 0405 Imaging Last Impressions Chest X-Ray 05/11/17 0600 Signed Impressions: Service Date/Time: Thursday, May 11, 2017 04:35 - CONCLUSION: 1. Cardiomegaly and findings of vascular congestion without overt failure. There has been no significant change when compared to the prior exam. 2. Left lower lobe atelectasis versus pneumonia. Laith Coe MD Abdomen Ultrasound 05/07/17 0000 Signed Impressions: Service Date/Time: Sunday, May 07, 2017 14:19 - CONCLUSION: 1. Echogenic liver compatible with fatty infiltration or hepatocellular disease. 2. Cholecystectomy Laith Coe MD Head CT [id number]/06/[id number] Signed Impressions: Service Date/Time: Sunday, May 07, 2017 03:14 - CONCLUSION: Normal examination. Noé Ybarra MD CT Angiography 05/06/17 0000 Signed Impressions: Service Date/Time: Sunday, May 07, 2017 03:21 - CONCLUSION: 1. No pulmonary embolus. 2. Bibasilar areas of consolidation or atelectasis being worse on the left. There are minimal bilateral pleural effusions. Noé Ybarra MD Assessment and Plan Problem List: (1) Acute renal failure ICD Codes: N17.9 - Acute kidney failure, unspecified Plan: Patient likely has acute tubular necrosis due to cardiogenic shock and cardiac arrhythmias and sepsis, at some point she was hypotensive as well Requiring vasopressors Currently on diltiazem All this leads to acute tubular necrosis Creatinine is rising Check urine sodium and creatinine Follow BMP Avoid nephrotoxins Palliative care is following and plan as to wait for daughter to arrive Her prognosis is poor due to anoxic brain injury (2) Cardiopulmonary arrest ICD Codes: I46.9 - Cardiac arrest, cause unspecified Status: Acute Plan: Critical care following (3) Cardiogenic shock ICD Codes: R57.0 - Cardiogenic shock Status: Acute Plan: Cardiomyopathy (4) Anoxic encephalopathy ICD Codes: G93.1 - Anoxic brain damage, not elsewhere classified Status: Acute Plan: Brain injury with no recovery (5) Cardiomyopathy ICD Codes: I42.9 - Cardiomyopathy Status: Acute Plan: EF of 20% Problem Qualifiers (1) Acute renal failure: Qualified Codes: N17.0 - Acute kidney failure with tubular necrosis Apollo Hughes MD May 11, 2017 21:21
[2017-05-12] VITALS (20 sets, daily range): BP systolic 114–134; BP diastolic 59–69; PULSE 83–99; RESP 16–17; TEMP 98–99.9; O2SAT 97–100
[2017-05-12] MEDS ORDERED: PHARMACY ORDERED LAB ONE (00:45)
[2017-05-12] MEDS: PIPERACIL-TAZO 3.375 GM PREMIX 50 ML IV SCH ×4 (01:55→20:37)
[2017-05-12] MEDS: RESP: ALBUTEROL 2.5 MG/IPRATROPIUM 0.5 MG NEB (SCH) INH ×4 (02:52→20:03)
[2017-05-12] MEDS: HEPARIN SODIUM - SQ 10,000 UNITS/ML VIAL SQ SCH ×2 (03:27→17:26)
[2017-05-12] MEDS: INSULIN ASPART SUPPLEMENTAL SCALE SQ SCH ×5 (04:20→20:30)
[2017-05-12 04:29] LABS: AUTOMATED NEUTROPHIL # 6.3 TH/MM3 (1.8-7.7); BASOPHIL # 0.1 TH/MM3 (0-0.2); BASOPHIL % 0.9 % (0.0-2.0); EOSINOPHIL # 0.1 TH/MM3 (0-0.4); EOSINOPHIL % 0.7 % (0.0-4.0); HEMATOCRIT 31.4 % (35.0-46.0); HEMO FLAGS DIFF FINAL; LYMPH % 11.4 % (9.0-44.0); MEAN CELL VOLUME 91.8 FL (80.0-100.0); MEAN CORPUSCULAR HEMOGLOBIN 30.3 PG (27.0-34.0); MONO % 13.2 % (0.0-8.0); NEUT % 73.8 % (16.0-70.0); PLATELET COUNT 134 TH/MM3 (150-450); RED BLOOD COUNT 3.42 MIL/MM3 (4.00-5.30); RED CELL DISTRIBUTION WIDTH 14.3 % (11.6-17.2); WHITE BLOOD COUNT 8.6 TH/MM3 (4.0-11.0)
[2017-05-12] MEDS: FAMOTIDINE 20 MG/2 ML VIAL IV PUSH SCH ×2 (04:50→17:26)
[2017-05-12 05:00] LABS: ANION GAP 12 MEQ/L (5-15); AST (GOT) 55 U/L (15-37); BICARBONATE 20.1 MEQ/L (21.0-32.0); BLOOD UREA NITROGEN 32 MG/DL (7-18); CHLORIDE 115 MEQ/L (98-107); GLOMERULAR FILTRATION RATE 23 ML/MIN (>89); POTASSIUM 3.5 MEQ/L (3.5-5.1); SODIUM (NA) 147 MEQ/L (136-145)
[2017-05-12 05:03] LABS: ALKALINE PHOSPHATASE 86 U/L (45-117); ALT (GPT) 40 U/L (10-53); TOTAL BILIRUBIN ADULT 0.6 MG/DL (0.2-1.0)
--- NOTE | 2017-05-12 05:07 | RADRPT ---
EXAM DATE/TIME: 05/12/2017 03:46 [facility] COMPARISON: CHEST SINGLE AP, May 11, 2017, 4:35. INDICATIONS : Shortness of breath, possible pulmonary disease. MEDICAL HISTORY : Diabetes mellitus type II. Hypertension Hyperlipidemia SURGICAL HISTORY : Cholecystectomy. ENCOUNTER: Subsequent ACUITY: 1 week PAIN SCORE: Non-responsive. LOCATION: Bilateral chest FINDINGS: The cardiac silhouette is enlarged in transverse diameter. There is left lower lobe atelectasis versu s pneumonia. A moderate size left sided effusion is present. CONCLUSION: 1. Left lower lobe atelectasis versus pneumonia. Left effusion. There has been no significant change when compared to the prior exam. Laith Coe MD on May 12, 2017 at 5:05 Board Certified Radiologist. This report was verified electronically.
[2017-05-12] MEDS: CHLORHEXIDINE 0.12% (ORAL KIT) 15 ML CUP MT SCH ×2 (09:09→20:38)
[2017-05-12] MEDS: levETIRAcetam 1000 MG INJ 100 ML IV SCH ×2 (09:10→20:37)
[2017-05-12] MEDS: CARVEDILOL 6.25 MG TAB PO SCH ×2 (09:10→20:37)
[2017-05-12] MEDS: ASPIRIN EC 81 MG TABEC PO SCH (09:10)
[2017-05-12] MEDS: DOCUSATE SODIUM 50 MG/SENNA 8.6 MG TAB PO SCH ×2 (09:10→20:37)
[2017-05-12] MEDS: LACTULOSE SYRUP 20 GM/30 ML CUP OG-TUBE SCH (09:10)
[2017-05-12] MEDS: DIVALPROEX SODIUM E.R. 500 MG TAB PO SCH (09:10)
[2017-05-12] MEDS: SODIUM CHLORIDE 0.9% FLUSH 10 ML FLUSH IV FLUSH SCH ×2 (09:10→20:37)
[2017-05-12] MEDS: ARTIFICIAL TEARS OPTH OINT 3.5 APPLIC/3.5 GM TUBO EACH EYE SCH ×2 (09:11→20:40)
--- NOTE | 2017-05-12 12:07 | HHI.HCPN ---
Reason for visit a. To assist with evaluation and management of symptoms including: Encephalopathy, possible seizures b. To assist medical decision maker(s) with: better understanding of current medical conditions; weighing benefits/burdens of medical treatment options; making medical treatment decisions. . Subjective/Interval History INTERVAL NOTE: The patient remains unresponsive, no apparent neurologic improvement.. T max today 99.5. Renal function continues to worsen, creatinine 2.63, GFR 23. Gastric function declining, with high residuals. Family has arrived from [place], see below. . Family/friend interactions Discussion with daughter Jitendra and 2 friends in the conference room, and daughter's cousin Cedric. Also present Merna MARIEW. We reviewed the current issues including the profound brain injury, ongoing cardiac, renal, GI, and pulmonary issues, and the very poor prognosis. The patient's daughter is certain that the patient would not want to be kept alive this way, and will likely withdraw life support after additional family is expected to arrive from [place] in the next day or 2. . Advance Directives Living Will: Never completed Health Care Surrogate: Never completed Durable Power of Cement Mixer: Never completed Advance Directive Specifics Significant change in goals: The patient's daughter is certain that the patient would not want to be kept alive this way, and will likely withdraw life support after additional family is expected to arrive from [place] in the next day or 2. . Objective Vital Signs Date Time Temp Pulse Resp B/P (MAP) Pulse Ox O2 Delivery O2 Flow Rate FiO2 05/12/17 10:00 96 05/12/17 09:31 100 35 05/12/17 08:00 96 05/12/17 08:00 30 05/12/17 08:00 99.5 96 16 123/64 (83) 99 134/67 (89) 05/12/17 06:00 92 05/12/17 04:00 40 05/12/17 04:00 98.0 93 17 123/64 (83) 100 127/64 (85) 05/12/17 04:00 93 05/12/17 03:50 100 35 05/12/17 02:00 87 05/12/17 00:45 99 35 05/12/17 00:00 83 05/12/17 00:00 40 05/12/17 00:00 98.2 83 16 122/68 (86) 98 127/65 (85) 05/11/17 22:00 79 05/11/17 21:07 99 35 05/11/17 20:00 90 05/11/17 20:00 40 05/11/17 20:00 98.0 90 16 128/67 (87) 130/68 (88) 05/11/17 19:45 98 35 05/11/17 18:43 91 125/65 05/11/17 16:46 95 35 05/11/17 16:00 91 22 113/62 (79) 115/62 (79) 05/11/17 16:00 40 05/11/17 16:00 92 16 158/75 (102) 97 157/79 (105) 05/11/17 16:00 40 05/11/17 16:00 92 16 158/75 (102) 97 157/79 (105) 05/11/17 16:00 40 05/11/17 13:23 98 35 Intake & Output 05/12/17 05/12/17 07:00 19:00 Intake Total 338 ml Output Total 950 ml Balance -612 ml Tube Feeding 338 ml Output Urine Total 950 ml Physical Exam CONSTITUTIONAL/GENERAL: This is an adequately nourished patient, in no apparent distress. Intubated in the I[facility] EYES: Pupils equal and round, about 1-1.5 mm each, and I am unable to see any reaction to light. NECK: Trachea midline. Supple, nontender. No palpable thyroid enlargement or nodularity. CARDIOVASCULAR: Regular rate and rhythm without murmurs, gallops, or rubs. No JVD. Peripheral pulses barely perceptible posterior tibial. RESPIRATORY/CHEST: Symmetric, unlabored respirations on the ventilator. Scattered rhonchi are heard GASTROINTESTINAL: Abdomen soft, nondistended, obese. No hepato-splenomegaly, or palpable masses. No guarding. Bowel sounds present. MUSCULOSKELETAL: Extremities without clubbing, cyanosis, or edema. No joint tenderness or effusion noted. No calf tenderness. No mottling or clubbing. NEUROLOGICAL: Unresponsive to voice, touch, or painful stimuli PSYCHIATRIC: Unable to evaluate due to clinical condition . Diagnostic Tests Laboratory Laboratory Tests Test 05/10/17 04:08 05/11/17 04:05 05/12/17 03:40 White Blood Count 9.3 TH/MM3 (4.0-11.0) 9.9 TH/MM3 (4.0-11.0) 8.6 TH/MM3 (4.0-11.0) Red Blood Count 3.59 MIL/MM3 (4.00-5.30) 3.59 MIL/MM3 (4.00-5.30) 3.42 MIL/MM3 (4.00-5.30) Hemoglobin 10.9 GM/DL (11.6-15.3) 11.1 GM/DL (11.6-15.3) 10.4 GM/DL (11.6-15.3) Hematocrit 33.4 % (35.0-46.0) 32.5 % (35.0-46.0) 31.4 % (35.0-46.0) Mean Corpuscular Volume 93.1 FL (80.0-100.0) 90.7 FL (80.0-100.0) 91.8 FL (80.0-100.0) Mean Corpuscular Hemoglobin 30.4 PG (27.0-34.0) 31.0 PG (27.0-34.0) 30.3 PG (27.0-34.0) Mean Corpuscular Hemoglobin Concent 32.7 % (32.0-36.0) 34.1 % (32.0-36.0) 33.0 % (32.0-36.0) Red Cell Distribution Width 14.2 % (11.6-17.2) 14.0 % (11.6-17.2) 14.3 % (11.6-17.2) Platelet Count 108 TH/MM3 (150-450) 130 TH/MM3 (150-450) 134 TH/MM3 (150-450) Mean Platelet Volume 9.1 FL (7.0-11.0) 9.9 FL (7.0-11.0) 9.3 FL (7.0-11.0) Neutrophils (%) (Auto) 81.6 % (16.0-70.0) 78.3 % (16.0-70.0) 73.8 % (16.0-70.0) Lymphocytes (%) (Auto) 10.6 % (9.0-44.0) 9.6 % (9.0-44.0) 11.4 % (9.0-44.0) Monocytes (%) (Auto) 6.7 % (0.0-8.0) 10.9 % (0.0-8.0) 13.2 % (0.0-8.0) Eosinophils (%) (Auto) 0.2 % (0.0-4.0) 0.2 % (0.0-4.0) 0.7 % (0.0-4.0) Basophils (%) (Auto) 0.9 % (0.0-2.0) 1.0 % (0.0-2.0) 0.9 % (0.0-2.0) Neutrophils # (Auto) 7.6 TH/MM3 (1.8-7.7) 7.8 TH/MM3 (1.8-7.7) 6.3 TH/MM3 (1.8-7.7) Lymphocytes # (Auto) 1.0 TH/MM3 (1.0-4.8) 1.0 TH/MM3 (1.0-4.8) 1.0 TH/MM3 (1.0-4.8) Monocytes # (Auto) 0.6 TH/MM3 (0-0.9) 1.1 TH/MM3 (0-0.9) 1.1 TH/MM3 (0-0.9) Eosinophils # (Auto) 0.0 TH/MM3 (0-0.4) 0.0 TH/MM3 (0-0.4) 0.1 TH/MM3 (0-0.4) Basophils # (Auto) 0.1 TH/MM3 (0-0.2) 0.1 TH/MM3 (0-0.2) 0.1 TH/MM3 (0-0.2) CBC Comment DIFF FINAL DIFF FINAL DIFF FINAL Differential Comment Blood Urea Nitrogen 15 MG/DL (7-18) 25 MG/DL (7-18) 32 MG/DL (7-18) Creatinine 1.05 MG/DL (0.50-1.00) 2.64 MG/DL (0.50-1.00) 2.63 MG/DL (0.50-1.00) Random Glucose 193 MG/DL (74-106) 203 MG/DL (74-106) 224 MG/DL (74-106) Total Protein 6.6 GM/DL (6.4-8.2) 6.5 GM/DL (6.4-8.2) 6.1 GM/DL (6.4-8.2) Albumin 2.4 GM/DL (3.4-5.0) 2.2 GM/DL (3.4-5.0) 1.8 GM/DL (3.4-5.0) Calcium Level 8.4 MG/DL (8.5-10.1) 8.4 MG/DL (8.5-10.1) 8.2 MG/DL (8.5-10.1) Alkaline Phosphatase 95 U/L (45-117) 94 U/L (45-117) 86 U/L (45-117) Aspartate Amino Transf (AST/SGOT) 68 U/L (15-37) 75 U/L (15-37) 55 U/L (15-37) Alanine Aminotransferase (ALT/SGPT) 70 U/L (10-53) 53 U/L (10-53) 40 U/L (10-53) Total Bilirubin 0.9 MG/DL (0.2-1.0) 1.1 MG/DL (0.2-1.0) 0.6 MG/DL (0.2-1.0) Sodium Level 145 MEQ/L (136-145) 144 MEQ/L (136-145) 147 MEQ/L (136-145) Potassium Level 3.9 MEQ/L (3.5-5.1) 3.8 MEQ/L (3.5-5.1) 3.5 MEQ/L (3.5-5.1) Chloride Level 112 MEQ/L (98-107) 113 MEQ/L (98-107) 115 MEQ/L (98-107) Carbon Dioxide Level 22.4 MEQ/L (21.0-32.0) 19.8 MEQ/L (21.0-32.0) 20.1 MEQ/L (21.0-32.0) Anion Gap 11 MEQ/L (5-15) 11 MEQ/L (5-15) 12 MEQ/L (5-15) Estimat Glomerular Filtration Rate 65 ML/MIN (>89) 23 ML/MIN (>89) 23 ML/MIN (>89) Magnesium Level 1.5 MG/DL (1.5-2.5) Random Vancomycin Level 21.6 COMMENT Result Diagram: 05/12/17 0340 05/12/17 0340 Procedures Bilateral femoral arterial lines and left femoral heat exchange catheter . Assessment and Plan Disease Oriented Problem List: (1) anoxic brain injury, severe encephalopathy (2) PEA cardiac arrest 05/06/17 (3) respiratory failure s/p cardiac arrest and resuscitation (4) transaminitis, likely due to hypoxic insult (5) history of CHF, ejection fraction 15-20% in 2013 (6) acute kidney injury (7) coronary artery disease, moderate disease on cath in 2013 (8) insulin-dependent diabetes (9) COPD, moderate (10) history of seizure disorder (11) unspecified but significant psychiatric illness, disabling (12) depression (13) hyperlipidemia (14) hypertension (15) GERD (16) chronic back pain (17) peripheral neuropathy (18) anxiety Symptom Scale: (1) anxiety 0-10 Scale: Unable to quantify (2) dyspnea 0-10 Scale: Unable to quantify (3) encephalopathy 0-10 Scale: Unable to quantify Pertinent Non-Medical Issues Psychosocial: Unmarried, 1 daughter in [place], disabled via psychiatric diagnoses for many years. Was living alone. Spiritual: Unaffiliated jew Legal: The patient is unmarried and has just one child, katarina Edward in [place]. The patient is very unlikely to regain capacity for decision-making, so Cheyanne is the proxy decision-maker. Ethical issues impacting care: None . Important Contacts Patient's daughter/HCP Cheyanne Garcia [phone] . Prognosis The patient's prognosis is extremely poor. She has underlying moderate or severe pulmonary and cardiac disease, and now has an apparent significant anoxic brain injury. . Code Status: Alternative Code (intubation only) Plan * ALTERNATE CODE, intubation only per request of daughter 05/10/17 * DECISION-MAKING: The patient is unmarried and has just one child, katarina Dunbar in [place]. The patient is very unlikely to regain capacity for decision- making, so Jitendra is the proxy decision-maker. * GOALS: The patient's daughter Jitendra notes that the patient had spoken with her more than once in recent years about healthcare goals and wishes, informing the daughter that she would not want to be kept alive artificially if the prognosis was poor. The patient's daughter requested DNR status. Following our meeting 05/12/17, the patient's daughter is certain that the patient would not want to be kept alive this way, and will likely withdraw life support after additional family is expected to arrive from [place] in the next day or 2. * SYMPTOMS: No evidence of pain, dyspnea, anxiety at this time.. * Palliative Care will continue to follow the patient during this hospitalization. . Time Spent Total Floor Time (mins): 46 Face to Face Time (mins): 11 >50% Counseling/Coord of Care: Yes (d/w RN and with Dr. Umanzor) Attestation To help prompt me to consider important information that might be impacting today's encounter and assessment, information from prior notes written by myself or my colleagues may have been "brought forward" into today's note. My signature on this note, however, is an attestation that I personally performed the exam, history, and/or decision-making noted today, and, unless otherwise indicated, the interactions with patient, family, and staff as well as the review of records all occurred today. I also attest that the listed assessment and stated plan reflect my best clinical judgment today based on the combination of historical information, prior notes, and today's exam/ interactions. When time spent is documented, it refers only to time spent today by the signer, or if indicated, combined time spent today by collaborating physician/nurse practitioner. Marah Adhikari MD May 12, 2017 12:07
--- NOTE | 2017-05-12 13:03 | HHI.CCPN ---
Subjective Remarks/Hospital Course 56-year-old female with past medical history of hypertension, chronic systolic heart failure, diabetes, COPD bipolar disorder, seizure disorder who presented to [facility] emergency department via [facility] following cardiac arrest. [facility] was originally called for shortness of breath and when they arrived patient was unresponsive and in PEA. Combitube was placed. CPR was initiated and patient was administered epinephrine 4, 1 amp bicarbonate, Narcan 2 mg prior to arrival via left tibial I/O. Blood glucose was 334. Exact duration of prehospital CPR is unclear. Combitube was removed and she was intubated upon arrival. Patient had ROSC 5 minutes after arrival. She received additional epinephrine 2 in the ED. She also received 1 L normal saline bolus, vancomycin, Zosyn in the ED. Critical care medicine is consulted for admission. EKG has no acute ischemia. SUBJ 05/07: Intubated sedated neuromuscularly paralyzed. Induced hypothermia initiated at 7 AM, 2-D echo shows EF 25-30%, mild to moderate MR. Serial troponins negative 05/08: Remains neuromuscularly paralyzed. Hypothermia will be completed by the known and rewarming was started. Remains off inotropes and pressors 05/09: Hypothermia protocol completed, placed overnight on Versed also in addition to propofol and fentanyl for tachycardia and asynchrony. Currently patient while on sedation do not open eyes with very slight withdrawal to pain 05/10: Developed Afib with RVR yesterday with HR in 200's DC cardioverted at night by Dr. Chu. Placed back on Versed. RN reports paroxysmal A fib. EEG pending at this time for subclinical sz. EEG 05/07 burst suppression pattern. Neuro prognosis poor 05/11: No neuro improvement. Creat worsening, nephrology consulted. EEG severe encephalopathy consistent with anoxic injury. Palliative care is following 05/12: There had been no improvement in neuro status after completion of code cool approximately 4 days ago. Patient has not shown not seen any signs of improvement. Palliative care met with family. Patient is developing multiorgan dysfunction syndrome. Daughter wants withdrawal of life support but wants to wait until some other family [place] can [place] Objective Vital Signs Date Time Temp Pulse Resp B/P (MAP) Pulse Ox O2 Delivery O2 Flow Rate FiO2 05/12/17 12:47 100 35 05/12/17 10:00 96 05/12/17 08:00 99.5 16 123/64 (83) 134/67 (89) Intake and Output 05/12/17 05/12/17 05/13/17 08:00 16:00 00:00 Intake Total 338 ml Output Total 950 ml Balance -612 ml Result Diagram: 05/12/1733905/12/17339 Objective Remarks GENERAL: Obese female who is intubated SKIN: Warm and dry. HEAD: Atraumatic. Normocephalic. EYES: Bilateral exophthalmus. Pupils equal and round, 2mm ENT: No nasal bleeding or discharge. Orotracheally intubated NECK: Trachea midline. No JVD appreciated. No meningismus CARDIOVASCULAR: Regular rate and rhythm, sinus rhythm on the monitor with rate in the 70s. Paroxysmal A Fib RESPIRATORY: ACV tidal volume 550/rate 16/P5. Breath sounds are equal bilaterally without wheezes Rales or rhonchi. GASTROINTESTINAL: Abdomen protuberant soft. No appreciable tenderness rebound or guarding. Bowel sounds are present. : Benoit catheter is in place MUSCULOSKELETAL: Extremities without clubbing, cyanosis, or edema. No obvious deformities. NEUROLOGICAL: Off sedation. No spontaneous eye opening, spontaneous movements. No withdrawal to pain A/P Problem List: (1) Chronic systolic heart failure ICD Code: I50.22 - Chronic systolic (congestive) heart failure Status: Chronic (2) Exophthalmos of both eyes ICD Code: H05.20 - Unspecified exophthalmos Status: Chronic (3) HTN (hypertension) ICD Code: I10 - Essential (primary) hypertension Status: Chronic (4) HLD (hyperlipidemia) ICD Code: E78.5 - Hyperlipidemia, unspecified Status: Chronic (5) Cardiogenic shock ICD Code: R57.0 - Cardiogenic shock Status: Acute (6) Acute respiratory failure with hypercapnia ICD Code: J96.02 - Acute respiratory failure with hypercapnia Status: Acute (7) Obesity (BMI 30-39.9) ICD Code: E66.9 - Obesity, unspecified Status: Chronic (8) CHF (congestive heart failure) ICD Code: I50.9 - CHF (congestive heart failure) Status: Acute (9) Bipolar disorder ICD Code: F31.9 - Bipolar affective disorder Status: Chronic (10) COPD (chronic obstructive pulmonary disease) ICD Code: J44.9 - Chronic obstructive pulmonary disease Status: Chronic (11) Tobacco abuse ICD Code: Z72.0 - Tobacco use Status: Chronic Assessment and Plan NEURO/PSYCH: Acute anoxic encephalopathy, severe Bipolar disorder Possible subclinical sz Status post completion of induced therapeutic hypothermia. initiated at 0700 , completed 05/08/17 CT brain - negative. No neurologic improvement yet. Neurology Dr. Solitario Depakote level. 48. Was on Depakote for bipolar. restarted Depakote. Lactulose 30 daily. Ammonia level down to 31. Neg urine drug screen, APAP, ASA level. Carboxyhemoglobin level mildly elevated, may be secondary to tobacco abuse. Resumed Neurontin 100 day. Holding Wellbutrin XL. EEG shows severe encephalopathy, burst suppression pattern. Repeat EEG severe encephalopathy Versed gtt off. Off Nimbex RESP: Acute hypercapnic respiratory failure COPD Tobacco abuse ACV tidal volume 550/rate 16/P5/F I/O to 60%. Ventilator bundle. DuoNeb q6 hours. Albuterol q2 hours prn. No Wheezing No Vent weaning until mental status improved CV: PEA cardiac arrest Post cardiac arrest syndrome with shock Afib with RVR Chronic systolic heart failure with ejection fraction 15-20% (25-30 on echo today) Nonobstructive Coronary artery disease Essential Hypertension Hyperlipidemia Holding home antihypertensives due to hypotension ( Diovan 160 mg by mouth daily ). Restarted coreg DCCV for Afib RVR with HR 200/min. Continue Cardizem for paroxysmal A fib EKG normal sinus rhythm rate of 99. No apparent acute ischemia. Follow-up serial EKGs and cardiac markers-negative. 2-D echo EF 25-30%. Cardiology Dr. Early Etiology of cardiac arrest unclear. Most likely due to hypercapnia and respiratory acidosis Resumed ASA after head CT resulted. Holding statin due to elevated LFTs. No betablocker or obie-I due to hypotension. GI: GERD Transaminitis, probable ischemic hepatopathy. Orogastric tube to low intermittent and wall suction. Output is nonbloody, no coffee grounds. RUQ us-fatty liver, hepatitis panel pending Tube feeds with Glucerna FEN/RENAL: MARQUEZ Lactic acidemia Hyperphosphatemia Benoit in place. Monitor intake and output. Monitor electrolytes and replace as indicated. Hold home NSAID's. Creat stable Nephrology consult for worsening creatinine ID: UTI Bacteremia with strep viridans, Coag neg staph, pleomorphic GPR Received Zosyn and vancomycin in the emergency department. Urine and blood cultures have been sent. Follow-up cultures Continue Zosyn and vancomycin HEME: No acute hematologic issues. ENDO: Diabetes mellitus with acute hyperglycemia Hold metformin, glipizide, Lantus. Insulin drip algorithm #2. Thyroid studies-essentially euthyroid PROPH: Sq heparin for DVT prophylaxis. Famotidine for stress ulcer prophylaxis and history of GERD ACCESS: Right femoral art line placed by ED physician 05/06/17, removed. L femoral heat exchange catheter and L femoral art line placed 05/07/17 Next of kin is Cheyanne, her only daughter. She is not . Cheyanne lives in [place]. Has been informed of risk of anoxic brain injury and discussed rationale for induced therapeutic hypothermia. Dr. Brandt Discussed with Dr. Morrison Level 3 ALT CODE. Palliative care consulted. Prognosis appears very poor. Now with multiorgan failure. Daughter wants to withdraw active life support once family members from [place] can visit Problem Qualifiers (1) HTN (hypertension): Qualified Codes: I10 - Essential (primary) hypertension Jaqueline Umanzor MD May 12, 2017 13:03
--- NOTE | 2017-05-12 13:43 | PD.CARD.PN ---
Subjective Subjective Remarks intubated, unresponsive off sedation Objective Medications Current Medications Medications (Trade) Dose Ordered Sig/Scarlett Route Start Time Stop Time Status Last Admin Propofol 100 ml @ 3.9 mls/hr TITRATE PRN IV 05/06/17 21:30 05/09/17 04:10 Fentanyl Citrate 250 ml @ 5 mls/hr TITRATE PRN IV 05/06/17 21:30 05/08/17 22:23 (Brethine Inj) 1 mg UNSCH PRN SQ 05/06/17 22:45 Sodium Chloride 1,000 ml @ 100 mls/hr Q10H IV 05/06/17 23:28 Future Hold 05/07/17 20:07 (Tylenol) 650 mg Q6H PRN PO 05/06/17 23:30 05/09/17 15:41 (fentaNYL INJ) 50 mcg Q1H PRN IV PUSH 05/06/17 23:30 (Zofran Inj) 4 mg Q6H PRN IV PUSH 05/06/17 23:30 (Albuterol Neb) 2.5 mg Q2HR NEB PRN INH 05/06/17 23:30 Miscellaneous Information 1 Q361D XX 05/06/17 23:30 (Chlorhexidine 2% Cloth) Taper DAILY@04 TOP 05/07/17 04:00 05/03/18 03:59 05/11/17 04:00 (Chlorhexidine 2% Cloth) 3 pack UNSCH PRN TOP 05/06/17 23:30 (Aggie-Colace) 1 tab BID PO 05/07/17 09:00 05/12/17 09:10 (Milk Of Magnesia Liq) 30 ml Q12H PRN PO 05/06/17 23:30 (Senokot) 17.2 mg Q12H PRN PO 05/06/17 23:30 (Dulcolax Supp) 10 mg DAILY PRN RECTAL 05/06/17 23:30 (Peridex 0.12% Liq) 15 ml BID@08,20 MT 05/07/17 08:00 05/12/17 09:09 (Pepcid Inj) 10 mg Q12H IV PUSH 05/07/17 06:00 05/12/17 04:50 (Ativan Inj) 1 mg Q1H PRN IV PUSH 05/07/17 04:30 (Versed Inj) 2 mg Q1H PRN IV PUSH 05/07/17 04:30 05/12/17 00:53 Midazolam HCl 100 ml @ 2 mls/hr TITRATE PRN IV 05/07/17 04:30 05/10/17 13:13 Cisatracurium Besylate 100 mg/ Sodium Chloride 250 ml @ 50.73 mls/ hr TITRATE PRN IV 05/07/17 05:00 05/08/17 11:32 (Lacrilube Opht Oint) 1 applic Q4H PRN EACH EYE 05/07/17 04:30 05/08/17 19:37 (NS Flush) 2 ml BID IV FLUSH 05/07/17 09:00 05/12/17 09:10 (NS Flush) 2 ml UNSCH PRN IV FLUSH 05/07/17 04:30 Miscellaneous Information 0 ml @ 0 mls/hr UNSCH IV 05/07/17 04:30 (Heparin Inj) 5,000 units Q12H SQ 05/07/17 05:00 05/11/17 04:10 Norepinephrine Bitartrate 4 mg/ Sodium Chloride 250 ml @ 7.5 mls/hr TITRATE PRN IV 05/07/17 05:15 05/09/17 05:08 Valproate Sodium 500 mg/Sodium Chloride 105 ml @ 105 mls/hr Q24H IV 05/07/17 09:00 Future Hold 05/07/17 08:50 (Lacrilube Opht Oint) 1 applic Q12HR EACH EYE 05/07/17 09:00 05/12/17 09:11 (Versed Inj) 2 mg Q15M PRN IV PUSH 05/07/17 08:15 (Ecotrin Ec) 81 mg DAILY PO 05/08/17 09:00 05/12/17 09:10 Piperacillin Sod/ Tazobactam Sod 50 ml @ 100 mls/hr Q6H IV 05/07/17 09:00 05/12/17 09:09 (Lactulose Liq) 30 ml DAILY OG-TUBE 05/07/17 09:00 05/12/17 09:10 (D50w (Vial) Inj) 50 ml UNSCH PRN IV PUSH 05/08/17 00:30 (Glucagon Inj) 1 mg UNSCH PRN OTHER 05/08/17 00:30 (NovoLOG SUPPLEMENTAL SCALE) 1 Q4H SQ 05/08/17 00:30 05/12/17 08:30 Midazolam HCl 100 ml @ 2 mls/hr TITRATE PRN IV 05/09/17 00:15 Levetriacetam 100 ml @ 400 mls/hr Q12HR IV 05/10/17 02:15 05/12/17 09:10 Diltiazem HCl 125 mg/Sodium Chloride 125 ml @ 5 mls/hr TITRATE PRN IV 05/10/17 09:30 05/11/17 18:43 (Trandate Inj) 20 mg Q4H PRN IV 05/10/17 10:15 (Duoneb Neb) 1 ampule Q6HR NEB INH 05/10/17 16:00 05/12/17 09:31 Pharmacy Profile Note 0 ml @ 0 mls/hr UNSCH OTHER 05/10/17 10:30 Diltiazem HCl 125 mg/Sodium Chloride 125 ml @ 5 mls/hr TITRATE PRN IV 05/10/17 12:00 05/10/17 22:31 (Depakote Er) 500 mg DAILY PO 05/10/17 12:00 05/12/17 09:10 (Coreg) 6.25 mg BID PO 05/10/17 11:30 05/12/17 09:10 Vancomycin HCl 1500 mg/Sodium Chloride 515 ml @ 250 mls/hr Q12H IV 05/10/17 13:00 Future Hold 05/11/17 01:08 Vital Signs / I&O Vital Signs Date Time Temp Pulse Resp B/P (MAP) Pulse Ox O2 Delivery O2 Flow Rate FiO2 05/12/17 12:47 100 35 05/12/17 10:00 96 05/12/17 09:31 100 35 05/12/17 08:00 96 05/12/17 08:00 30 05/12/17 08:00 99.5 96 16 123/64 (83) 99 134/67 (89) 05/12/17 06:00 92 05/12/17 04:00 40 05/12/17 04:00 98.0 93 17 123/64 (83) 100 127/64 (85) 05/12/17 04:00 93 05/12/17 03:50 100 35 05/12/17 02:00 87 05/12/17 00:45 99 35 05/12/17 00:00 83 05/12/17 00:00 40 05/12/17 00:00 98.2 83 16 122/68 (86) 98 127/65 (85) 05/11/17 22:00 79 05/11/17 21:07 99 35 05/11/17 20:00 90 05/11/17 20:00 40 05/11/17 20:00 98.0 90 16 128/67 (87) 130/68 (88) 05/11/17 19:45 98 35 05/11/17 18:43 91 125/65 05/11/17 16:46 95 35 05/11/17 16:00 91 22 113/62 (79) 115/62 (79) 05/11/17 16:00 40 05/11/17 16:00 92 16 158/75 (102) 97 157/79 (105) 05/11/17 16:00 40 05/11/17 16:00 92 16 158/75 (102) 97 157/79 (105) 05/11/17 16:00 40 I/O 05/11/17 05/11/17 05/11/17 05/12/17 05/12/17 05/12/17 07:00 15:00 23:00 07:00 15:00 23:00 Intake Total 560 ml 338 ml Output Total 75 ml 1290 ml 950 ml Balance 485 ml -1290 ml -612 ml Intake IV Total 500 ml Tube Feeding 338 ml Other 60 ml Output Urine Total 75 ml 1100 ml 950 ml Stool Total 40 ml Gastric Drainage Total 150 ml # Bowel Movements 1 Physical Exam GENERAL: SKIN: Warm and dry. HEAD: Normocephalic. EYES: No scleral icterus. No injection or drainage. NECK: Supple, trachea midline. No JVD or lymphadenopathy. CARDIOVASCULAR: Regular rate and rhythm without murmurs, gallops, or rubs. RESPIRATORY: Breath sounds equal bilaterally. No accessory muscle use. GASTROINTESTINAL: Abdomen soft, non-tender, nondistended. MUSCULOSKELETAL: No cyanosis, or edema. BACK: Nontender without obvious deformity. No CVA tenderness. Laboratory Laboratory Tests Test 05/12/17 03:40 White Blood Count 8.6 TH/MM3 Red Blood Count 3.42 MIL/MM3 Hemoglobin 10.4 GM/DL Hematocrit 31.4 % Mean Corpuscular Volume 91.8 FL Mean Corpuscular Hemoglobin 30.3 PG Mean Corpuscular Hemoglobin Concent 33.0 % Red Cell Distribution Width 14.3 % Platelet Count 134 TH/MM3 Mean Platelet Volume 9.3 FL Neutrophils (%) (Auto) 73.8 % Lymphocytes (%) (Auto) 11.4 % Monocytes (%) (Auto) 13.2 % Eosinophils (%) (Auto) 0.7 % Basophils (%) (Auto) 0.9 % Neutrophils # (Auto) 6.3 TH/MM3 Lymphocytes # (Auto) 1.0 TH/MM3 Monocytes # (Auto) 1.1 TH/MM3 Eosinophils # (Auto) 0.1 TH/MM3 Basophils # (Auto) 0.1 TH/MM3 CBC Comment DIFF FINAL Differential Comment Blood Urea Nitrogen 32 MG/DL Creatinine 2.63 MG/DL Random Glucose 224 MG/DL Total Protein 6.1 GM/DL Albumin 1.8 GM/DL Calcium Level 8.2 MG/DL Alkaline Phosphatase 86 U/L Aspartate Amino Transf (AST/SGOT) 55 U/L Alanine Aminotransferase (ALT/SGPT) 40 U/L Total Bilirubin 0.6 MG/DL Sodium Level 147 MEQ/L Potassium Level 3.5 MEQ/L Chloride Level 115 MEQ/L Carbon Dioxide Level 20.1 MEQ/L Anion Gap 12 MEQ/L Estimat Glomerular Filtration Rate 23 ML/MIN Random Vancomycin Level 21.6 COMMENT Imaging Last 24 hours Impressions Chest X-Ray 05/12/17 0600 Signed Impressions: Service Date/Time: April 03:46 - CONCLUSION: 1. Left lower lobe atelectasis versus pneumonia. Left effusion. There has been no significant change when compared to the prior exam. Laith Coe MD Assessment and Plan Problem List: (1) CAD (coronary artery disease) ICD Codes: I25.10 - Atherosclerotic heart disease of [place] coronary artery without angina pectoris (2) CHRONIC OBSTRUCTIVE PULMON DISEASE W ACUTE LOWER RESP INFCT ICD Codes: J44.0 - CHRONIC OBSTRUCTIVE PULMON DISEASE W ACUTE LOWER RESP INFCT Status: Acute (3) Cardiomyopathy ICD Codes: I42.9 - Cardiomyopathy Status: Acute (4) Cardiopulmonary arrest ICD Codes: I46.9 - Cardiac arrest, cause unspecified Status: Acute (5) Diabetes mellitus ICD Codes: E11.9 - Type 2 diabetes mellitus without complications Status: Acute Assessment and Plan 1.) Cardiomyopathy - euvolemic, obie and beta navya held due to recent cardiogenic shock and uncertain neurologic status 2.) CAD - continue aspirin, statin held due to shock liver and elevated lfts Aguila Early MD May 12, 2017 13:43
--- NOTE | 2017-05-12 13:49 | HHI.NPPN ---
Subjective History of Present Illness 56 year old female with cardiomyopathy COPD CAD Anoxic bran injury ARF Objective Data Data Vital Signs Date Time Temp Pulse Resp B/P (MAP) Pulse Ox O2 Delivery O2 Flow Rate FiO2 05/12/17 12:47 100 35 05/12/17 10:00 96 05/12/17 09:31 100 35 05/12/17 08:00 96 05/12/17 08:00 30 05/12/17 08:00 99.5 96 16 123/64 (83) 99 134/67 (89) 05/12/17 06:00 92 05/12/17 04:00 40 05/12/17 04:00 98.0 93 17 123/64 (83) 100 127/64 (85) 05/12/17 04:00 93 05/12/17 03:50 100 35 05/12/17 02:00 87 05/12/17 00:45 99 35 05/12/17 00:00 83 05/12/17 00:00 40 05/12/17 00:00 98.2 83 16 122/68 (86) 98 127/65 (85) 05/11/17 22:00 79 05/11/17 21:07 99 35 05/11/17 20:00 90 05/11/17 20:00 40 05/11/17 20:00 98.0 90 16 128/67 (87) 130/68 (88) 05/11/17 19:45 98 35 05/11/17 18:43 91 125/65 05/11/17 16:46 95 35 05/11/17 16:00 91 22 113/62 (79) 115/62 (79) 05/11/17 16:00 40 05/11/17 16:00 92 16 158/75 (102) 97 157/79 (105) 05/11/17 16:00 40 05/11/17 16:00 92 16 158/75 (102) 97 157/79 (105) 05/11/17 16:00 40 -: 05/12/17 0340 05/12/17 0340 Physical Exam General Appearance: Well Developed Neck Neck Exam: Neck Supple Pulmonary Resp Exam: Decreased Bases Cardiology CV Exam: Irregular Gastrointestinal/Abdomen GI Exam: Soft, Distended Extremeties Extremities Exam: Moderate Edema Assessment/Plan Problem List: (1) Acute renal failure ICD Codes: N17.9 - Acute kidney failure, unspecified Plan: Patient with acute renal failure cardiomyopathy CHF coronary syndrome ATN Family plans to withdraw continue supportive care waiting further decision she is passing urine Follow BMP Avoid nephrotoxins Palliative care is following and plan as to wait for daughter to arrive Her prognosis is poor due to anoxic brain injury (2) Cardiopulmonary arrest ICD Codes: I46.9 - Cardiac arrest, cause unspecified Status: Acute Plan: Critical care following (3) Cardiogenic shock ICD Codes: R57.0 - Cardiogenic shock Status: Acute Plan: Cardiomyopathy (4) Anoxic encephalopathy ICD Codes: G93.1 - Anoxic brain damage, not elsewhere classified Status: Acute Plan: Brain injury with no recovery (5) Cardiomyopathy ICD Codes: I42.9 - Cardiomyopathy Status: Acute Plan: EF of 20% Problem Qualifiers (1) Acute renal failure: Qualified Codes: N17.0 - Acute kidney failure with tubular necrosis Apollo Hughes MD May 12, 2017 13:49
[2017-05-12] MEDS: DILTIAZEM INJ 125 MG in SODIUM CHLORIDE 0.9% INJ 100 ML IV PRN (15:03)
[2017-05-13] VITALS (19 sets, daily range): BP systolic 127–155; BP diastolic 62–82; PULSE 80–104; RESP 16–17; TEMP 98.9–100.5; O2SAT 97–100
[2017-05-13] MEDS: INSULIN ASPART SUPPLEMENTAL SCALE SQ SCH ×6 (00:30→20:30)
[2017-05-13] MEDS: RESP: ALBUTEROL 2.5 MG/IPRATROPIUM 0.5 MG NEB (SCH) INH ×4 (02:25→21:18)
[2017-05-13] MEDS: HEPARIN SODIUM - SQ 10,000 UNITS/ML VIAL SQ SCH ×2 (03:36→16:37)
[2017-05-13] MEDS: CHLORHEXIDINE GLUCONATE 2 % 1 PACK (2 CLOTHS) TOP SCH (03:36)
[2017-05-13] MEDS: PIPERACIL-TAZO 3.375 GM PREMIX 50 ML IV SCH ×4 (03:37→21:22)
[2017-05-13] MEDS: MIDAZOLAM HCL 2 MG/2 ML VIAL IV PUSH PRN (04:17)
[2017-05-13] MEDS: FAMOTIDINE 20 MG/2 ML VIAL IV PUSH SCH ×2 (04:18→16:38)
[2017-05-13] MEDS: DOCUSATE SODIUM 50 MG/SENNA 8.6 MG TAB PO SCH ×2 (08:04→20:45)
[2017-05-13] MEDS: LACTULOSE SYRUP 20 GM/30 ML CUP OG-TUBE SCH (08:04)
--- NOTE | 2017-05-13 08:17 | PD.CARD.PN ---
Subjective Subjective Remarks intubated, unresponsive off sedation Objective Medications Current Medications Medications (Trade) Dose Ordered Sig/Scarlett Route Start Time Stop Time Status Last Admin Propofol 100 ml @ 3.9 mls/hr TITRATE PRN IV 05/06/17 21:30 05/09/17 04:10 Fentanyl Citrate 250 ml @ 5 mls/hr TITRATE PRN IV 05/06/17 21:30 05/08/17 22:23 (Brethine Inj) 1 mg UNSCH PRN SQ 05/06/17 22:45 Sodium Chloride 1,000 ml @ 100 mls/hr Q10H IV 05/06/17 23:28 Future Hold 05/07/17 20:07 (Tylenol) 650 mg Q6H PRN PO 05/06/17 23:30 05/09/17 15:41 (fentaNYL INJ) 50 mcg Q1H PRN IV PUSH 05/06/17 23:30 (Zofran Inj) 4 mg Q6H PRN IV PUSH 05/06/17 23:30 (Albuterol Neb) 2.5 mg Q2HR NEB PRN INH 05/06/17 23:30 Miscellaneous Information 1 Q361D XX 05/06/17 23:30 (Chlorhexidine 2% Cloth) Taper DAILY@04 TOP 05/07/17 04:00 05/03/18 03:59 05/13/17 03:36 (Chlorhexidine 2% Cloth) 3 pack UNSCH PRN TOP 05/06/17 23:30 (Aggie-Colace) 1 tab BID PO 05/07/17 09:00 05/12/17 20:37 (Milk Of Magnesia Liq) 30 ml Q12H PRN PO 05/06/17 23:30 (Senokot) 17.2 mg Q12H PRN PO 05/06/17 23:30 (Dulcolax Supp) 10 mg DAILY PRN RECTAL 05/06/17 23:30 (Peridex 0.12% Liq) 15 ml BID@08,20 MT 05/07/17 08:00 05/12/17 20:38 (Pepcid Inj) 10 mg Q12H IV PUSH 05/07/17 06:00 05/13/17 04:18 (Ativan Inj) 1 mg Q1H PRN IV PUSH 05/07/17 04:30 (Versed Inj) 2 mg Q1H PRN IV PUSH 05/07/17 04:30 05/12/17 00:53 Midazolam HCl 100 ml @ 2 mls/hr TITRATE PRN IV 05/07/17 04:30 05/10/17 13:13 Cisatracurium Besylate 100 mg/ Sodium Chloride 250 ml @ 50.73 mls/ hr TITRATE PRN IV 05/07/17 05:00 05/08/17 11:32 (Lacrilube Opht Oint) 1 applic Q4H PRN EACH EYE 05/07/17 04:30 05/08/17 19:37 (NS Flush) 2 ml BID IV FLUSH 05/07/17 09:00 05/12/17 20:37 (NS Flush) 2 ml UNSCH PRN IV FLUSH 05/07/17 04:30 Miscellaneous Information 0 ml @ 0 mls/hr UNSCH IV 05/07/17 04:30 (Heparin Inj) 5,000 units Q12H SQ 05/07/17 05:00 05/13/17 03:36 Norepinephrine Bitartrate 4 mg/ Sodium Chloride 250 ml @ 7.5 mls/hr TITRATE PRN IV 05/07/17 05:15 05/09/17 05:08 Valproate Sodium 500 mg/Sodium Chloride 105 ml @ 105 mls/hr Q24H IV 05/07/17 09:00 Future Hold 05/07/17 08:50 (Lacrilube Opht Oint) 1 applic Q12HR EACH EYE 05/07/17 09:00 05/12/17 20:40 (Versed Inj) 2 mg Q15M PRN IV PUSH 05/07/17 08:15 05/13/17 04:17 (Ecotrin Ec) 81 mg DAILY PO 05/08/17 09:00 05/12/17 09:10 Piperacillin Sod/ Tazobactam Sod 50 ml @ 100 mls/hr Q6H IV 05/07/17 09:00 05/13/17 03:37 (Lactulose Liq) 30 ml DAILY OG-TUBE 05/07/17 09:00 05/12/17 09:10 (D50w (Vial) Inj) 50 ml UNSCH PRN IV PUSH 05/08/17 00:30 (Glucagon Inj) 1 mg UNSCH PRN OTHER 05/08/17 00:30 (NovoLOG SUPPLEMENTAL SCALE) 1 Q4H SQ 05/08/17 00:30 05/12/17 20:30 Midazolam HCl 100 ml @ 2 mls/hr TITRATE PRN IV 05/09/17 00:15 Levetriacetam 100 ml @ 400 mls/hr Q12HR IV 05/10/17 02:15 05/12/17 20:37 Diltiazem HCl 125 mg/Sodium Chloride 125 ml @ 5 mls/hr TITRATE PRN IV 05/10/17 09:30 05/11/17 18:43 (Trandate Inj) 20 mg Q4H PRN IV 05/10/17 10:15 (Duoneb Neb) 1 ampule Q6HR NEB INH 05/10/17 16:00 05/13/17 02:25 Pharmacy Profile Note 0 ml @ 0 mls/hr UNSCH OTHER 05/10/17 10:30 Diltiazem HCl 125 mg/Sodium Chloride 125 ml @ 5 mls/hr TITRATE PRN IV 05/10/17 12:00 05/12/17 15:03 (Depakote Er) 500 mg DAILY PO 05/10/17 12:00 05/12/17 09:10 (Coreg) 6.25 mg BID PO 05/10/17 11:30 05/12/17 20:37 Vancomycin HCl 1500 mg/Sodium Chloride 515 ml @ 250 mls/hr Q12H IV 05/10/17 13:00 Future Hold 05/11/17 01:08 Vital Signs / I&O Vital Signs Date Time Temp Pulse Resp B/P (MAP) Pulse Ox O2 Delivery O2 Flow Rate FiO2 05/13/17 06:00 85 05/13/17 04:00 99.6 82 16 133/66 (88) 99 136/70 (92) 05/13/17 04:00 82 05/13/17 04:00 30 05/13/17 03:15 98 35 05/13/17 02:00 80 05/13/17 01:00 82 05/13/17 00:28 99 35 05/13/17 00:00 98.9 89 16 146/74 (98) 99 155/80 (105) 05/13/17 00:00 30 05/13/17 00:00 89 05/12/17 23:00 92 05/12/17 22:00 90 05/12/17 21:43 98 35 05/12/17 20:03 97 35 05/12/17 20:00 99.9 99 16 125/69 (87) 97 05/12/17 20:00 99 05/12/17 20:00 30 05/12/17 18:00 96 05/12/17 16:21 100 35 05/12/17 16:00 30 05/12/17 16:00 99.2 91 16 123/64 (83) 100 114/59 (77) 05/12/17 16:00 91 05/12/17 15:03 93 129/65 05/12/17 14:00 96 05/12/17 12:47 100 35 05/12/17 12:00 98.9 87 16 123/64 (83) 100 119/60 (79) 05/12/17 12:00 96 05/12/17 12:00 30 05/12/17 10:00 96 05/12/17 09:31 100 35 I/O 05/12/17 05/12/17 05/12/17 05/13/17 05/13/17 05/13/17 07:00 15:00 23:00 07:00 15:00 23:00 Intake Total 338 ml 150 ml 850 ml 406 ml Output Total 950 ml 1050 ml 725 ml Balance -612 ml 150 ml -200 ml -319 ml Intake IV Total 150 ml 200 ml 50 ml Tube Feeding 338 ml 530 ml 256 ml Other 120 ml 100 ml Output Urine Total 950 ml 1050 ml 725 ml # Bowel Movements 1 4 Physical Exam GENERAL: SKIN: Warm and dry. HEAD: Normocephalic. EYES: No scleral icterus. No injection or drainage. NECK: Supple, trachea midline. No JVD or lymphadenopathy. CARDIOVASCULAR: Regular rate and rhythm without murmurs, gallops, or rubs. RESPIRATORY: Breath sounds equal bilaterally. No accessory muscle use. GASTROINTESTINAL: Abdomen soft, non-tender, nondistended. MUSCULOSKELETAL: No cyanosis, or edema. BACK: Nontender without obvious deformity. No CVA tenderness. Laboratory Laboratory Tests Test 05/13/17 04:28 Random Vancomycin Level 10.6 COMMENT Assessment and Plan Problem List: (1) CAD (coronary artery disease) ICD Codes: I25.10 - Atherosclerotic heart disease of [place] coronary artery without angina pectoris (2) CHRONIC OBSTRUCTIVE PULMON DISEASE W ACUTE LOWER RESP INFCT ICD Codes: J44.0 - CHRONIC OBSTRUCTIVE PULMON DISEASE W ACUTE LOWER RESP INFCT Status: Acute (3) Cardiomyopathy ICD Codes: I42.9 - Cardiomyopathy Status: Acute (4) Cardiopulmonary arrest ICD Codes: I46.9 - Cardiac arrest, cause unspecified Status: Acute (5) Diabetes mellitus ICD Codes: E11.9 - Type 2 diabetes mellitus without complications Status: Acute Assessment and Plan 1.) Cardiomyopathy - euvolemic, obie and beta navya held due to recent cardiogenic shock and uncertain neurologic status 2.) CAD - continue aspirin, statin held due to shock liver and elevated lfts Aguila Early MD May 13, 2017 08:17
[2017-05-13] MEDS: DIVALPROEX SODIUM E.R. 500 MG TAB PO SCH (08:48)
[2017-05-13] MEDS: ASPIRIN EC 81 MG TABEC PO SCH (08:49)
[2017-05-13] MEDS: CARVEDILOL 6.25 MG TAB PO SCH ×2 (09:29→20:45)
[2017-05-13] MEDS: levETIRAcetam 1000 MG INJ 100 ML IV SCH ×2 (09:29→20:45)
[2017-05-13] MEDS: CHLORHEXIDINE 0.12% (ORAL KIT) 15 ML CUP MT SCH ×2 (09:30→19:58)
[2017-05-13] MEDS: ARTIFICIAL TEARS OPTH OINT 3.5 APPLIC/3.5 GM TUBO EACH EYE PRN (09:30)
[2017-05-13] MEDS: SODIUM CHLORIDE 0.9% FLUSH 10 ML FLUSH IV FLUSH SCH ×2 (09:31→20:46)
[2017-05-13] MEDS: ARTIFICIAL TEARS OPTH OINT 3.5 APPLIC/3.5 GM TUBO EACH EYE SCH ×2 (09:31→20:45)
[2017-05-13] MEDS ORDERED: VANCOMYCIN 1,500 MG/NS 500 ML IV ONE ×2 (11:00)
--- NOTE | 2017-05-13 11:07 | HHI.CCPN ---
Subjective Remarks/Hospital Course 56-year-old female with past medical history of hypertension, chronic systolic heart failure, diabetes, COPD bipolar disorder, seizure disorder who presented to [facility] emergency department via [facility] following cardiac arrest. [facility] was originally called for shortness of breath and when they arrived patient was unresponsive and in PEA. Combitube was placed. CPR was initiated and patient was administered epinephrine 4, 1 amp bicarbonate, Narcan 2 mg prior to arrival via left tibial I/O. Blood glucose was 334. Exact duration of prehospital CPR is unclear. Combitube was removed and she was intubated upon arrival. Patient had ROSC 5 minutes after arrival. She received additional epinephrine 2 in the ED. She also received 1 L normal saline bolus, vancomycin, Zosyn in the ED. Critical care medicine is consulted for admission. EKG has no acute ischemia. SUBJ 05/07: Intubated sedated neuromuscularly paralyzed. Induced hypothermia initiated at 7 AM, 2-D echo shows EF 25-30%, mild to moderate MR. Serial troponins negative 05/08: Remains neuromuscularly paralyzed. Hypothermia will be completed by the known and rewarming was started. Remains off inotropes and pressors 05/09: Hypothermia protocol completed, placed overnight on Versed also in addition to propofol and fentanyl for tachycardia and asynchrony. Currently patient while on sedation do not open eyes with very slight withdrawal to pain 05/10: Developed Afib with RVR yesterday with HR in 200's DC cardioverted at night by Dr. Chu. Placed back on Versed. RN reports paroxysmal A fib. EEG pending at this time for subclinical sz. EEG 05/07 burst suppression pattern. Neuro prognosis poor 05/11: No neuro improvement. Creat worsening, nephrology consulted. EEG severe encephalopathy consistent with anoxic injury. Palliative care is following 05/12: There had been no improvement in neuro status after completion of code cool approximately 4 days ago. Patient has not shown not seen any signs of improvement. Palliative care met with family. Patient is developing multiorgan dysfunction syndrome. Daughter wants withdrawal of life support but wants to wait until some other family members can visit from [place] 05/13: No meaningful recovery yet. Opens eyes partially to pain. Weakly withdraws all extremities to pain. UO 1.8L in 24 hours. Family considering withdrawal of life support today, considering comorbidities and poor neuro recovery after cooling Objective Vital Signs Date Time Temp Pulse Resp B/P (MAP) Pulse Ox O2 Delivery O2 Flow Rate FiO2 05/13/17 10:00 97 05/13/17 08:35 97 35 05/13/17 08:00 99.0 17 127/62 (83) 154/82 (106) Intake and Output 05/13/17 05/13/17 05/14/17 08:00 16:00 00:00 Intake Total 406 ml Output Total 725 ml Balance -319 ml Result Diagram: 05/12/17 03405/12/17 0340 Objective Remarks GENERAL: Obese female who is intubated SKIN: Warm and dry. HEAD: Atraumatic. Normocephalic. EYES: Bilateral exophthalmus. Pupils equal and round, 2mm ENT: No nasal bleeding or discharge. Orotracheally intubated NECK: Trachea midline. No JVD appreciated. No meningismus CARDIOVASCULAR: Regular rate and rhythm, sinus rhythm on the monitor with rate in the 70s. Paroxysmal A Fib RESPIRATORY: ACV tidal volume 550/rate 16/P5. Breath sounds are equal bilaterally without wheezes Rales or rhonchi. GASTROINTESTINAL: Abdomen protuberant soft. No appreciable tenderness rebound or guarding. Bowel sounds are present. : Benoit catheter is in place MUSCULOSKELETAL: Extremities without clubbing, cyanosis, or edema. No obvious deformities. NEUROLOGICAL: Off sedation. No spontaneous eye opening, but partial eye opening to pain. Slight withdrawal to pain in all 4 ext A/P Problem List: (1) Chronic systolic heart failure ICD Code: I50.22 - Chronic systolic (congestive) heart failure Status: Chronic (2) Exophthalmos of both eyes ICD Code: H05.20 - Unspecified exophthalmos Status: Chronic (3) HTN (hypertension) ICD Code: I10 - Essential (primary) hypertension Status: Chronic (4) HLD (hyperlipidemia) ICD Code: E78.5 - Hyperlipidemia, unspecified Status: Chronic (5) Cardiogenic shock ICD Code: R57.0 - Cardiogenic shock Status: Acute (6) Acute respiratory failure with hypercapnia ICD Code: J96.02 - Acute respiratory failure with hypercapnia Status: Acute (7) Obesity (BMI 30-39.9) ICD Code: E66.9 - Obesity, unspecified Status: Chronic (8) CHF (congestive heart failure) ICD Code: I50.9 - CHF (congestive heart failure) Status: Acute (9) Bipolar disorder ICD Code: F31.9 - Bipolar affective disorder Status: Chronic (10) COPD (chronic obstructive pulmonary disease) ICD Code: J44.9 - Chronic obstructive pulmonary disease Status: Chronic (11) Tobacco abuse ICD Code: Z72.0 - Tobacco use Status: Chronic Assessment and Plan NEURO/PSYCH: Acute anoxic encephalopathy, severe Bipolar disorder Possible subclinical sz Status post completion of induced therapeutic hypothermia. initiated at 0700 , completed 05/08/17 CT brain - negative. No neurologic improvement yet, except to pain partial eye opening and slight withdrawal. Neurology Dr. Solitario Depakote level. 48. Was on Depakote for bipolar. restarted Depakote. Lactulose 30 daily. Ammonia level down to 31. Neg urine drug screen, APAP, ASA level. Carboxyhemoglobin level mildly elevated, may be secondary to tobacco abuse. Resumed Neurontin 100 day. Holding Wellbutrin XL. EEG shows severe encephalopathy, burst suppression pattern. Repeat EEG severe encephalopathy Versed gtt off for several days RESP: Acute hypercapnic respiratory failure COPD Tobacco abuse ACV tidal volume 550/rate 16/P5/F I/O to 60%. Ventilator bundle. DuoNeb q6 hours. Albuterol q2 hours prn. No Wheezing No Vent weaning until mental status improved CV: PEA cardiac arrest Post cardiac arrest syndrome with shock (shock resolved) Afib with RVR Chronic systolic heart failure with ejection fraction 15-20% (25-30 on echo today) Nonobstructive Coronary artery disease Essential Hypertension Hyperlipidemia Holding home antihypertensives due to hypotension ( Diovan 160 mg by mouth daily ). Restarted coreg, use IV Hydralazine PRN for SBP >170 DCCV for Afib RVR with HR 200/min. Continue Cardizem for paroxysmal A fib EKG normal sinus rhythm rate of 99. No apparent acute ischemia. Follow-up serial EKGs and cardiac markers-negative. 2-D echo EF 25-30%. Cardiology Dr. Early Etiology of cardiac arrest unclear. Most likely due to hypercapnia and respiratory acidosis Resumed ASA after head CT resulted. Holding statin due to elevated LFTs. No beta navya or PROSPER-I due to hypotension. GI: GERD Transaminitis, probable ischemic hepatopathy. Orogastric tube to low intermittent and wall suction. Output is nonbloody, no coffee grounds. RUQ us-fatty liver, hepatitis panel pending Tube feeds with Glucerna FEN/RENAL: MARQUEZ Lactic acidemia Hyperphosphatemia Benoit in place. Monitor intake and output. Monitor electrolytes and replace as indicated. Hold home NSAID's. Creat stable Nephrology consult for worsening creatinine ID: UTI Bacteremia with strep viridans, Coag neg staph, pleomorphic GPR Received Zosyn and vancomycin in the emergency department. Urine and blood cultures have been sent. Follow-up cultures Continue Zosyn and vancomycin HEME: No acute hematologic issues. ENDO: Diabetes mellitus with acute hyperglycemia Hold metformin, glipizide, Lantus. Insulin drip algorithm #2. Thyroid studies-essentially euthyroid PROPH: Sq heparin for DVT prophylaxis. Famotidine for stress ulcer prophylaxis and history of GERD ACCESS: Right femoral art line placed by ED physician 05/06/17, removed. L femoral heat exchange catheter and L femoral art line placed 05/07/17 Next of kin is Cheyanne, her only daughter. She is not . Cheyanne lives in [place]. Has been informed of risk of anoxic brain injury and discussed rationale for induced therapeutic hypothermia. Dr. Brandt Discussed with Dr. Morrison Level 3 ALT CODE. Palliative care consulted. Prognosis appears very poor. Now with multiorgan failure. Daughter wants to withdraw active life support once family members from [place] can visit. D/W Dr. Adhikari Problem Qualifiers (1) HTN (hypertension): Qualified Codes: I10 - Essential (primary) hypertension Jaqueline Umanzor MD May 13, 2017 11:07
[2017-05-13] MEDS ORDERED: hydrALAZINE HCL 20 MG/ML VIAL IV PUSH PRN (11:15)
--- NOTE | 2017-05-13 12:30 | HHI.NPPN ---
Subjective History of Present Illness 56 year old female with cardiomyopathy COPD CAD Anoxic bran injury ARF Objective Data Data 05/13/17 05/14/17 19:00 07:00 Intake Total 150 ml Balance 150 ml Intake IV Total 150 ml Vital Signs Date Time Temp Pulse Resp B/P (MAP) Pulse Ox O2 Delivery O2 Flow Rate FiO2 05/13/17 12:05 98 35 05/13/17 12:00 100.2 90 16 134/68 (90) 98 138/69 (92) 05/13/17 12:00 30 05/13/17 12:00 90 05/13/17 10:00 97 05/13/17 08:35 97 35 05/13/17 08:00 99.0 100 17 127/62 (83) 98 154/82 (106) 05/13/17 08:00 90 05/13/17 08:00 30 05/13/17 06:00 85 05/13/17 04:00 99.6 82 16 133/66 (88) 99 136/70 (92) 05/13/17 04:00 82 05/13/17 04:00 30 05/13/17 03:15 98 35 05/13/17 02:00 80 05/13/17 01:00 82 05/13/17 00:28 99 35 05/13/17 00:00 98.9 89 16 146/74 (98) 99 155/80 (105) 05/13/17 00:00 30 05/13/17 00:00 89 05/12/17 23:00 92 05/12/17 22:00 90 05/12/17 21:43 98 35 05/12/17 20:03 97 35 05/12/17 20:00 99.9 99 16 125/69 (87) 97 05/12/17 20:00 99 05/12/17 20:00 30 05/12/17 18:00 96 05/12/17 16:21 100 35 05/12/17 16:00 30 05/12/17 16:00 99.2 91 16 123/64 (83) 100 114/59 (77) 05/12/17 16:00 91 05/12/17 15:03 93 129/65 05/12/17 14:00 96 05/12/17 12:47 100 35 -: 05/12/17 0340 05/12/17 0340 Physical Exam General Appearance: Well Developed Neck Neck Exam: Neck Supple Pulmonary Resp Exam: Decreased Bases Cardiology CV Exam: Irregular Gastrointestinal/Abdomen GI Exam: Soft, Distended Extremeties Extremities Exam: Moderate Edema Assessment/Plan Problem List: (1) Acute renal failure ICD Codes: N17.9 - Acute kidney failure, unspecified Plan: Patient with acute renal failure cardiomyopathy CHF coronary syndrome ATN Family at bedside discussed ARF/CKD stable but she has anoxic brain injury and will be on Ventilator support Her prognosis is poor due to anoxic brain injury follow UOP/BMP (2) Cardiopulmonary arrest ICD Codes: I46.9 - Cardiac arrest, cause unspecified Status: Acute Plan: Critical care following (3) Cardiogenic shock ICD Codes: R57.0 - Cardiogenic shock Status: Acute Plan: Cardiomyopathy (4) Anoxic encephalopathy ICD Codes: G93.1 - Anoxic brain damage, not elsewhere classified Status: Acute Plan: Brain injury with no recovery (5) Cardiomyopathy ICD Codes: I42.9 - Cardiomyopathy Status: Acute Plan: EF of 20% Problem Qualifiers (1) Acute renal failure: Qualified Codes: N17.0 - Acute kidney failure with tubular necrosis Apollo Hughes MD May 13, 2017 12:30
--- NOTE | 2017-05-13 14:25 | HHI.HCPN ---
Reason for visit a. To assist with evaluation and management of symptoms including: Encephalopathy, possible seizures b. To assist medical decision maker(s) with: better understanding of current medical conditions; weighing benefits/burdens of medical treatment options; making medical treatment decisions. . Subjective/Interval History INTERVAL NOTE: The patient remains unresponsive, and I can see or illicit no apparent neurologic improvement, although this morning the patient apparently had some slight withdrawal to pain.. Renal function: She remains GFR 23. Gastric function declining, with high residuals. Family has arrived from [place],, but apparently more on the way . Family/friend interactions Unable to reach daughter by phone . Advance Directives Living Will: Never completed Health Care Surrogate: Never completed Durable Power of Data Lead: Never completed Objective Vital Signs Date Time Temp Pulse Resp B/P (MAP) Pulse Ox O2 Delivery O2 Flow Rate FiO2 05/13/17 12:05 98 35 05/13/17 12:00 100.2 90 16 134/68 (90) 98 138/69 (92) 05/13/17 12:00 30 05/13/17 12:00 90 05/13/17 10:00 97 05/13/17 08:35 97 35 05/13/17 08:00 99.0 100 17 127/62 (83) 98 154/82 (106) 05/13/17 08:00 90 05/13/17 08:00 30 05/13/17 06:00 85 05/13/17 04:00 99.6 82 16 133/66 (88) 99 136/70 (92) 05/13/17 04:00 82 05/13/17 04:00 30 05/13/17 03:15 98 35 05/13/17 02:00 80 05/13/17 01:00 82 05/13/17 00:28 99 35 05/13/17 00:00 98.9 89 16 146/74 (98) 99 155/80 (105) 05/13/17 00:00 30 05/13/17 00:00 89 05/12/17 23:00 92 05/12/17 22:00 90 05/12/17 21:43 98 35 05/12/17 20:03 97 35 05/12/17 20:00 99.9 99 16 125/69 (87) 97 05/12/17 20:00 99 05/12/17 20:00 30 05/12/17 18:00 96 05/12/17 16:21 100 35 05/12/17 16:00 30 05/12/17 16:00 99.2 91 16 123/64 (83) 100 114/59 (77) 05/12/17 16:00 91 05/12/17 15:03 93 129/65 Intake & Output 05/13/17 05/13/17 07:00 19:00 Intake Total 556 ml 150 ml Output Total 725 ml Balance -169 ml 150 ml Intake IV Total 200 ml 150 ml Tube Feeding 256 ml Other 100 ml Output Urine Total 725 ml # Bowel Movements 4 Physical Exam CONSTITUTIONAL/GENERAL: This is an adequately nourished patient, in no apparent distress. Intubated in the [facility] EYES: Pupils equal and round, about 1-1.5 mm each, and there may be a slight reaction to light. NECK: Trachea midline. Supple, nontender. No palpable thyroid enlargement or nodularity. CARDIOVASCULAR: Regular rate and rhythm without murmurs, gallops, or rubs. No JVD. Peripheral pulses barely perceptible posterior tibial. RESPIRATORY/CHEST: Symmetric, unlabored respirations on the ventilator. Scattered rhonchi are heard GASTROINTESTINAL: Abdomen soft, nondistended, obese. No hepato-splenomegaly, or palpable masses. No guarding. Bowel sounds present. MUSCULOSKELETAL: Extremities without clubbing, cyanosis, or edema. No joint tenderness or effusion noted. No calf tenderness. No mottling or clubbing. NEUROLOGICAL: Unresponsive to my voice, touch, or painful stimuli PSYCHIATRIC: Unable to evaluate due to clinical condition . Diagnostic Tests Laboratory Laboratory Tests Test 05/11/17 04:05 05/12/17 03:40 05/13/17 04:28 White Blood Count 9.9 TH/MM3 (4.0-11.0) 8.6 TH/MM3 (4.0-11.0) Red Blood Count 3.59 MIL/MM3 (4.00-5.30) 3.42 MIL/MM3 (4.00-5.30) Hemoglobin 11.1 GM/DL (11.6-15.3) 10.4 GM/DL (11.6-15.3) Hematocrit 32.5 % (35.0-46.0) 31.4 % (35.0-46.0) Mean Corpuscular Volume 90.7 FL (80.0-100.0) 91.8 FL (80.0-100.0) Mean Corpuscular Hemoglobin 31.0 PG (27.0-34.0) 30.3 PG (27.0-34.0) Mean Corpuscular Hemoglobin Concent 34.1 % (32.0-36.0) 33.0 % (32.0-36.0) Red Cell Distribution Width 14.0 % (11.6-17.2) 14.3 % (11.6-17.2) Platelet Count 130 TH/MM3 (150-450) 134 TH/MM3 (150-450) Mean Platelet Volume 9.9 FL (7.0-11.0) 9.3 FL (7.0-11.0) Neutrophils (%) (Auto) 78.3 % (16.0-70.0) 73.8 % (16.0-70.0) Lymphocytes (%) (Auto) 9.6 % (9.0-44.0) 11.4 % (9.0-44.0) Monocytes (%) (Auto) 10.9 % (0.0-8.0) 13.2 % (0.0-8.0) Eosinophils (%) (Auto) 0.2 % (0.0-4.0) 0.7 % (0.0-4.0) Basophils (%) (Auto) 1.0 % (0.0-2.0) 0.9 % (0.0-2.0) Neutrophils # (Auto) 7.8 TH/MM3 (1.8-7.7) 6.3 TH/MM3 (1.8-7.7) Lymphocytes # (Auto) 1.0 TH/MM3 (1.0-4.8) 1.0 TH/MM3 (1.0-4.8) Monocytes # (Auto) 1.1 TH/MM3 (0-0.9) 1.1 TH/MM3 (0-0.9) Eosinophils # (Auto) 0.0 TH/MM3 (0-0.4) 0.1 TH/MM3 (0-0.4) Basophils # (Auto) 0.1 TH/MM3 (0-0.2) 0.1 TH/MM3 (0-0.2) CBC Comment DIFF FINAL DIFF FINAL Differential Comment Blood Urea Nitrogen 25 MG/DL (7-18) 32 MG/DL (7-18) Creatinine 2.64 MG/DL (0.50-1.00) 2.63 MG/DL (0.50-1.00) Random Glucose 203 MG/DL (74-106) 224 MG/DL (74-106) Total Protein 6.5 GM/DL (6.4-8.2) 6.1 GM/DL (6.4-8.2) Albumin 2.2 GM/DL (3.4-5.0) 1.8 GM/DL (3.4-5.0) Calcium Level 8.4 MG/DL (8.5-10.1) 8.2 MG/DL (8.5-10.1) Magnesium Level 1.5 MG/DL (1.5-2.5) Alkaline Phosphatase 94 U/L (45-117) 86 U/L (45-117) Aspartate Amino Transf (AST/SGOT) 75 U/L (15-37) 55 U/L (15-37) Alanine Aminotransferase (ALT/SGPT) 53 U/L (10-53) 40 U/L (10-53) Total Bilirubin 1.1 MG/DL (0.2-1.0) 0.6 MG/DL (0.2-1.0) Sodium Level 144 MEQ/L (136-145) 147 MEQ/L (136-145) Potassium Level 3.8 MEQ/L (3.5-5.1) 3.5 MEQ/L (3.5-5.1) Chloride Level 113 MEQ/L (98-107) 115 MEQ/L (98-107) Carbon Dioxide Level 19.8 MEQ/L (21.0-32.0) 20.1 MEQ/L (21.0-32.0) Anion Gap 11 MEQ/L (5-15) 12 MEQ/L (5-15) Estimat Glomerular Filtration Rate 23 ML/MIN (>89) 23 ML/MIN (>89) Random Vancomycin Level 21.6 COMMENT 10.6 COMMENT Result Diagram: 05/12/17 0340 05/12/17 0340 Procedures Bilateral femoral arterial lines and left femoral heat exchange catheter . Assessment and Plan Disease Oriented Problem List: (1) anoxic brain injury, severe encephalopathy (2) PEA cardiac arrest 05/06/17 (3) respiratory failure s/p cardiac arrest and resuscitation (4) transaminitis, likely due to hypoxic insult (5) history of CHF, ejection fraction 15-20% in 2014 (6) acute kidney injury (7) coronary artery disease, moderate disease on cath in 2014 (8) insulin-dependent diabetes (9) COPD, moderate (10) history of seizure disorder (11) unspecified but significant psychiatric illness, disabling (12) depression (13) hyperlipidemia (14) hypertension (15) GERD (16) chronic back pain (17) peripheral neuropathy (18) anxiety Symptom Scale: (1) anxiety 0-10 Scale: Unable to quantify (2) dyspnea 0-10 Scale: Unable to quantify (3) encephalopathy 0-10 Scale: Unable to quantify Pertinent Non-Medical Issues Psychosocial: Unmarried, 1 daughter in [place], disabled via psychiatric diagnoses for many years. Was living alone. Spiritual: Unaffiliated orthodox Legal: The patient is unmarried and has just one child, katarina Edward in [place]. The patient is very unlikely to regain capacity for decision-making, so Cheyanne is the proxy decision-maker. Ethical issues impacting care: None . Important Contacts Patient's daughter/HCP Cheyanne Garcia [phone] . Prognosis The patient's prognosis is extremely poor. She has underlying moderate or severe pulmonary and cardiac disease, and now has an apparent significant anoxic brain injury. . Code Status: Alternative Code (intubation only) Plan * ALTERNATE CODE, intubation only per request of daughter 05/10/17 * DECISION-MAKING: The patient is unmarried and has just one child, katarina Dunbar in [place]. The patient is very unlikely to regain capacity for decision- making, so Jitendra is the proxy decision-maker. * GOALS: The patient's daughter Jitendra notes that the patient had spoken with her more than once in recent years about healthcare goals and wishes, informing the daughter that she would not want to be kept alive artificially if the prognosis was poor. The patient's daughter requested DNR status. Following our meeting 05/12/17, the patient's daughter is certain that the patient would not want to be kept alive this way, and will likely withdraw life support after additional family is expected to arrive from [place] in the next day or 2. * SYMPTOMS: No evidence of pain, dyspnea, anxiety at this time.. * Palliative Care will continue to follow the patient during this hospitalization. . Time Spent Total Floor Time (mins): 36 Face to Face Time (mins): 16 >50% Counseling/Coord of Care: Yes (d/w RN) Attestation To help prompt me to consider important information that might be impacting today's encounter and assessment, information from prior notes written by myself or my colleagues may have been "brought forward" into today's note. My signature on this note, however, is an attestation that I personally performed the exam, history, and/or decision-making noted today, and, unless otherwise indicated, the interactions with patient, family, and staff as well as the review of records all occurred today. I also attest that the listed assessment and stated plan reflect my best clinical judgment today based on the combination of historical information, prior notes, and today's exam/ interactions. When time spent is documented, it refers only to time spent today by the signer, or if indicated, combined time spent today by collaborating physician/nurse practitioner. Marah Adhikari MD May 13, 2017 14:24
--- NOTE | 2017-05-13 16:23 | HHI.PR ---
Review/Management Diagnosis/Plan: (1) Anoxic encephalopathy ICD Codes: G93.1 - Anoxic brain damage, not elsewhere classified Status: Acute Plan: (2) PEA (Pulseless electrical activity) ICD Codes: I46.9 - Cardiac arrest, cause unspecified Status: Acute (3) Acute respiratory failure with hypercapnia ICD Codes: J96.02 - Acute respiratory failure with hypercapnia Status: Acute (4) Chronic systolic heart failure ICD Codes: I50.22 - Chronic systolic (congestive) heart failure Status: Chronic Daily Summary Given the clinical neurological evaluation and EEG findings the prognosis for a meaningful neurologic recovery is poor. Subjective Subjective Comments Intubated, no reported change in status as per RN EEG revealed suppressed cerebral activity No family at bed side Active Medications Current Medications Medications (Trade) Dose Ordered Sig/Scarlett Route Start Time Stop Time Status Last Admin Propofol 100 ml @ 3.9 mls/hr TITRATE PRN IV 05/06/17 21:30 05/09/17 04:10 Fentanyl Citrate 250 ml @ 5 mls/hr TITRATE PRN IV 05/06/17 21:30 05/08/17 22:23 (Brethine Inj) 1 mg UNSCH PRN SQ 05/06/17 22:45 Sodium Chloride 1,000 ml @ 100 mls/hr Q10H IV 05/06/17 23:28 Future Hold 05/07/17 20:07 (Tylenol) 650 mg Q6H PRN PO 05/06/17 23:30 05/09/17 15:41 (fentaNYL INJ) 50 mcg Q1H PRN IV PUSH 05/06/17 23:30 (Zofran Inj) 4 mg Q6H PRN IV PUSH 05/06/17 23:30 (Albuterol Neb) 2.5 mg Q2HR NEB PRN INH 05/06/17 23:30 Miscellaneous Information 1 Q361D XX 05/06/17 23:30 (Chlorhexidine 2% Cloth) Taper DAILY@04 TOP 05/07/17 04:00 05/03/18 03:59 05/13/17 03:36 (Chlorhexidine 2% Cloth) 3 pack UNSCH PRN TOP 05/06/17 23:30 (Aggie-Colace) 1 tab BID PO 05/07/17 09:00 05/12/17 20:37 (Milk Of Magnesia Liq) 30 ml Q12H PRN PO 05/06/17 23:30 (Senokot) 17.2 mg Q12H PRN PO 05/06/17 23:30 (Dulcolax Supp) 10 mg DAILY PRN RECTAL 05/06/17 23:30 (Peridex 0.12% Liq) 15 ml BID@08,20 MT 05/07/17 08:00 05/13/17 09:30 (Pepcid Inj) 10 mg Q12H IV PUSH 05/07/17 06:00 05/13/17 04:18 (Ativan Inj) 1 mg Q1H PRN IV PUSH 05/07/17 04:30 (Versed Inj) 2 mg Q1H PRN IV PUSH 05/07/17 04:30 05/12/17 00:53 Midazolam HCl 100 ml @ 2 mls/hr TITRATE PRN IV 05/07/17 04:30 05/10/17 13:13 Cisatracurium Besylate 100 mg/ Sodium Chloride 250 ml @ 50.73 mls/ hr TITRATE PRN IV 05/07/17 05:00 05/08/17 11:32 (Lacrilube Opht Oint) 1 applic Q4H PRN EACH EYE 05/07/17 04:30 05/13/17 09:30 (NS Flush) 2 ml BID IV FLUSH 05/07/17 09:00 05/13/17 09:31 (NS Flush) 2 ml UNSCH PRN IV FLUSH 05/07/17 04:30 Miscellaneous Information 0 ml @ 0 mls/hr UNSCH IV 05/07/17 04:30 (Heparin Inj) 5,000 units Q12H SQ 05/07/17 05:00 05/13/17 03:36 Norepinephrine Bitartrate 4 mg/ Sodium Chloride 250 ml @ 7.5 mls/hr TITRATE PRN IV 05/07/17 05:15 05/09/17 05:08 Valproate Sodium 500 mg/Sodium Chloride 105 ml @ 105 mls/hr Q24H IV 05/07/17 09:00 Future Hold 05/07/17 08:50 (Lacrilube Opht Oint) 1 applic Q12HR EACH EYE 05/07/17 09:00 05/13/17 09:31 (Versed Inj) 2 mg Q15M PRN IV PUSH 05/07/17 08:15 05/13/17 04:17 (Ecotrin Ec) 81 mg DAILY PO 05/08/17 09:00 05/12/17 09:10 Piperacillin Sod/ Tazobactam Sod 50 ml @ 100 mls/hr Q6H IV 05/07/17 09:00 05/13/17 14:46 (Lactulose Liq) 30 ml DAILY OG-TUBE 05/07/17 09:00 05/12/17 09:10 (D50w (Vial) Inj) 50 ml UNSCH PRN IV PUSH 05/08/17 00:30 (Glucagon Inj) 1 mg UNSCH PRN OTHER 05/08/17 00:30 (NovoLOG SUPPLEMENTAL SCALE) 1 Q4H SQ 05/08/17 00:30 05/12/17 20:30 Midazolam HCl 100 ml @ 2 mls/hr TITRATE PRN IV 05/09/17 00:15 Levetriacetam 100 ml @ 400 mls/hr Q12HR IV 05/10/17 02:15 05/13/17 09:29 Diltiazem HCl 125 mg/Sodium Chloride 125 ml @ 5 mls/hr TITRATE PRN IV 05/10/17 09:30 05/11/17 18:43 (Trandate Inj) 20 mg Q4H PRN IV 05/10/17 10:15 (Duoneb Neb) 1 ampule Q6HR NEB INH 05/10/17 16:00 05/13/17 08:33 Pharmacy Profile Note 0 ml @ 0 mls/hr UNSCH OTHER 05/10/17 10:30 Diltiazem HCl 125 mg/Sodium Chloride 125 ml @ 5 mls/hr TITRATE PRN IV 05/10/17 12:00 05/12/17 15:03 (Depakote Er) 500 mg DAILY PO 05/10/17 12:00 05/12/17 09:10 (Coreg) 6.25 mg BID PO 05/10/17 11:30 05/13/17 09:29 Vancomycin HCl 1500 mg/Sodium Chloride 515 ml @ 250 mls/hr Q12H IV 05/10/17 13:00 Future Hold 05/11/17 01:08 (Apresoline Inj) 20 mg Q4H PRN IV PUSH 05/13/17 11:15 Allergies Allergies Coded Allergies No Known Allergies ([id number]/13/17) Review of Systems All other ROS: Unable to obtain Exam I&O / VS 05/13/17 05/13/17 05/14/17 15:00 23:00 07:00 Intake Total 665 ml Balance 665 ml Intake IV Total 665 ml Vital Signs Date Time Temp Pulse Resp B/P (MAP) Pulse Ox O2 Delivery O2 Flow Rate FiO2 05/13/17 16:00 30 05/13/17 16:00 91 05/13/17 16:00 100.5 92 16 130/67 (88) 100 135/68 (90) 05/13/17 14:00 104 05/13/17 12:05 98 35 05/13/17 12:00 100.2 90 16 134/68 (90) 98 138/69 (92) 05/13/17 12:00 30 05/13/17 12:00 90 05/13/17 10:00 30 05/13/17 10:00 97 05/13/17 08:35 97 35 05/13/17 08:00 99.0 100 17 127/62 (83) 98 154/82 (106) 05/13/17 08:00 90 05/13/17 08:00 30 05/13/17 06:00 85 05/13/17 04:00 99.6 82 16 133/66 (88) 99 136/70 (92) 05/13/17 04:00 82 05/13/17 04:00 30 05/13/17 03:15 98 35 05/13/17 02:00 80 05/13/17 01:00 82 05/13/17 00:28 99 35 05/13/17 00:00 98.9 89 16 146/74 (98) 99 155/80 (105) 05/13/17 00:00 30 05/13/17 00:00 89 05/12/17 23:00 92 05/12/17 22:00 90 05/12/17 21:43 98 35 05/12/17 20:03 97 35 05/12/17 20:00 99.9 99 16 125/69 (87) 97 05/12/17 20:00 99 05/12/17 20:00 30 05/12/17 18:00 96 Exam Comments Intubated, b/l exophthalmos, pupils 3mm b/l symmetrical reacting sluggishly to light Intact corneal reflex Gag reflex is present No response to deep painful simulation Plantars are b/l mute Objective Radiology Results Last 72 hours Impressions Chest X-Ray 05/12/17 0600 Signed Impressions: Service Date/Time: April 03:46 - CONCLUSION: 1. Left lower lobe atelectasis versus pneumonia. Left effusion. There has been no significant change when compared to the prior exam. Laith Coe MD Chest X-Ray 05/11/17 06 Signed Impressions: Service Date/Time: Thursday, May 11, 2017 04:35 - CONCLUSION: 1. Cardiomegaly and findings of vascular congestion without overt failure. There has been no significant change when compared to the prior exam. 2. Left lower lobe atelectasis versus pneumonia. Laith Coe MD Micro and Labs Laboratory Tests Test 05/13/17 04:28 Random Vancomycin Level 10.6 Date/Time Source Procedure Growth Status 05/06/17 21:36 Blood Peripheral Aerobic Blood Culture - Final NO GROWTH IN 5 DAYS Complete 05/06/17 21:36 Anaerobic Blood Culture - Final Viridans Streptococcus Grp Staph Sp Coagulase Negative Pleomorphic Gram Positive Rods Complete 05/07/17 06:00 Sputum Endotracheal Gram Stain - Final Complete 05/07/17 06:00 Sputum Endotracheal Sputum Culture - Final HEAVY GROWTH NORMAL RESPIRATORY JORDEN Complete 05/06/17 21:35 Urine Clean Catch Urine Culture - Final NO GROWTH IN 48 HOURS. Complete Teresa Manrique MD May 13, 2017 16:23
[2017-05-13] MEDS: DILTIAZEM INJ 125 MG in SODIUM CHLORIDE 0.9% INJ 100 ML IV PRN (17:45)
[2017-05-14] VITALS (19 sets, daily range): BP systolic 137–160; BP diastolic 63–79; PULSE 94–105; RESP 16; TEMP 99.9–101.8; O2SAT 97–100
[2017-05-14] MEDS: INSULIN ASPART SUPPLEMENTAL SCALE SQ SCH ×6 (00:30→20:30)
[2017-05-14] MEDS: CHLORHEXIDINE GLUCONATE 2 % 1 PACK (2 CLOTHS) TOP SCH (02:57)
[2017-05-14] MEDS: PIPERACIL-TAZO 3.375 GM PREMIX 50 ML IV SCH ×4 (02:57→21:05)
[2017-05-14] MEDS: RESP: ALBUTEROL 2.5 MG/IPRATROPIUM 0.5 MG NEB (SCH) INH ×4 (03:27→21:34)
[2017-05-14] MEDS: HEPARIN SODIUM - SQ 10,000 UNITS/ML VIAL SQ SCH ×2 (05:09→15:23)
[2017-05-14] MEDS: FAMOTIDINE 20 MG/2 ML VIAL IV PUSH SCH ×2 (05:09→17:34)
[2017-05-14] MEDS: MIDAZOLAM HCL 2 MG/2 ML VIAL IV PUSH PRN (05:10)
[2017-05-14] MEDS: DOCUSATE SODIUM 50 MG/SENNA 8.6 MG TAB PO SCH ×2 (08:42→21:05)
[2017-05-14] MEDS: LACTULOSE SYRUP 20 GM/30 ML CUP OG-TUBE SCH (08:42)
[2017-05-14] MEDS: CARVEDILOL 6.25 MG TAB PO SCH (08:42)
[2017-05-14] MEDS: levETIRAcetam 1000 MG INJ 100 ML IV SCH ×2 (08:43→21:05)
[2017-05-14] MEDS: ARTIFICIAL TEARS OPTH OINT 3.5 APPLIC/3.5 GM TUBO EACH EYE SCH ×2 (08:43→21:15)
[2017-05-14] MEDS: SODIUM CHLORIDE 0.9% FLUSH 10 ML FLUSH IV FLUSH SCH ×2 (08:43→21:05)
[2017-05-14] MEDS: ASPIRIN EC 81 MG TABEC PO SCH (08:44)
[2017-05-14] MEDS: DIVALPROEX SODIUM E.R. 500 MG TAB PO SCH (08:44)
[2017-05-14] MEDS: CHLORHEXIDINE 0.12% (ORAL KIT) 15 ML CUP MT SCH ×2 (08:45→21:04)
--- NOTE | 2017-05-14 09:14 | HHI.CCPN ---
Subjective Remarks/Hospital Course 56-year-old female with past medical history of hypertension, chronic systolic heart failure, diabetes, COPD bipolar disorder, seizure disorder who presented to [facility] emergency department via [facility] following cardiac arrest. [facility] was originally called for shortness of breath and when they arrived patient was unresponsive and in PEA. Combitube was placed. CPR was initiated and patient was administered epinephrine 4, 1 amp bicarbonate, Narcan 2 mg prior to arrival via left tibial I/O. Blood glucose was 334. Exact duration of prehospital CPR is unclear. Combitube was removed and she was intubated upon arrival. Patient had ROSC 5 minutes after arrival. She received additional epinephrine 2 in the ED. She also received 1 L normal saline bolus, vancomycin, Zosyn in the ED. Critical care medicine is consulted for admission. EKG has no acute ischemia. SUBJ 05/07: Intubated sedated neuromuscularly paralyzed. Induced hypothermia initiated at 7 AM, 2-D echo shows EF 25-30%, mild to moderate MR. Serial troponins negative 05/08: Remains neuromuscularly paralyzed. Hypothermia will be completed by the known and rewarming was started. Remains off inotropes and pressors 05/09: Hypothermia protocol completed, placed overnight on Versed also in addition to propofol and fentanyl for tachycardia and asynchrony. Currently patient while on sedation do not open eyes with very slight withdrawal to pain 05/10: Developed Afib with RVR yesterday with HR in 200's DC cardioverted at night by Dr. Chu. Placed back on Versed. RN reports paroxysmal A fib. EEG pending at this time for subclinical sz. EEG 05/07 burst suppression pattern. Neuro prognosis poor 05/11: No neuro improvement. Creat worsening, nephrology consulted. EEG severe encephalopathy consistent with anoxic injury. Palliative care is following 05/12: There had been no improvement in neuro status after completion of code cool approximately 4 days ago. Patient has not shown not seen any signs of improvement. Palliative care met with family. Patient is developing multiorgan dysfunction syndrome. Daughter wants withdrawal of life support but wants to wait until some other family members can visit from [place] 05/13: No meaningful recovery yet. Opens eyes partially to pain. Weakly withdraws all extremities to pain. UO 1.8L in 24 hours. Family considering withdrawal of life support today, considering comorbidities and poor neuro recovery after cooling 05/14: Eyes are spontaneously open but with upward gaze. No tracking no response to threat. Withdraws bilateral upper extremity to pain. Had been off sedation more than 4 days Objective Vital Signs Date Time Temp Pulse Resp B/P (MAP) Pulse Ox O2 Delivery O2 Flow Rate FiO2 05/14/17 07:42 99 35 05/14/17 06:00 98 05/14/17 04:00 100.6 16 157/73 (101) 148/76 (100) Intake and Output 05/14/17 05/14/17 05/15/17 08:00 16:00 00:00 Intake Total 379 ml Output Total 550 ml Balance -171 ml Result Diagram: 05/12/1733905/12/17339 Objective Remarks GENERAL: Obese female who is intubated, unresponsive SKIN: Warm and dry. HEAD: Atraumatic. Normocephalic. EYES: Bilateral exophthalmus. Pupils equal and round, reactive. Positive corneal ENT: No nasal bleeding or discharge. Orotracheally intubated NECK: Trachea midline. No JVD appreciated. No meningismus CARDIOVASCULAR: Regular rate and rhythm, sinus rhythm on the monitor with rate in the 70s. Paroxysmal A Fib RESPIRATORY: ACV tidal volume 550/rate 16/P5. Breath sounds are equal bilaterally without wheezes Rales or rhonchi. GASTROINTESTINAL: Abdomen protuberant soft. No appreciable tenderness rebound or guarding. Bowel sounds are present. : Benoit catheter is in place MUSCULOSKELETAL: Extremities without clubbing, cyanosis, or edema. NEUROLOGICAL: Off sedation for more than 4 days. I assessment initially open with a port case. Slight withdrawal to pain in all 4 ext upper extremities more than lower A/P Problem List: (1) Cardiac arrest ICD Code: I46.9 - Cardiac arrest, cause unspecified (2) Anoxic-ischemic encephalopathy ICD Code: G93.1 - Anoxic brain damage, not elsewhere classified; I67.82 - Cerebral ischemia (3) Chronic systolic heart failure ICD Code: I50.22 - Chronic systolic (congestive) heart failure Status: Chronic (4) Exophthalmos of both eyes ICD Code: H05.20 - Unspecified exophthalmos Status: Chronic (5) HTN (hypertension) ICD Code: I10 - Essential (primary) hypertension Status: Chronic (6) HLD (hyperlipidemia) ICD Code: E78.5 - Hyperlipidemia, unspecified Status: Chronic (7) Cardiogenic shock ICD Code: R57.0 - Cardiogenic shock Status: Acute (8) Acute respiratory failure with hypercapnia ICD Code: J96.02 - Acute respiratory failure with hypercapnia Status: Acute (9) Obesity (BMI 30-39.9) ICD Code: E66.9 - Obesity, unspecified Status: Chronic (10) CHF (congestive heart failure) ICD Code: I50.9 - CHF (congestive heart failure) Status: Acute (11) Bipolar disorder ICD Code: F31.9 - Bipolar affective disorder Status: Chronic (12) COPD (chronic obstructive pulmonary disease) ICD Code: J44.9 - Chronic obstructive pulmonary disease Status: Chronic (13) Tobacco abuse ICD Code: Z72.0 - Tobacco use Status: Chronic Assessment and Plan NEURO/PSYCH: Acute anoxic encephalopathy, severe Bipolar disorder Possible subclinical sz Status post completion of induced therapeutic hypothermia. initiated at 0700 , completed 05/08/17. Off sedation more than [address] brain - negative. No neurologic improvement yet, except to pain partial eye opening and slight withdrawal. Neurology Dr. Solitario Depakote level. 48. Was on Depakote for bipolar. restarted Depakote. Lactulose 30 daily. Ammonia level down to 31. Neg urine drug screen, APAP, ASA level. Carboxyhemoglobin level mildly elevated, may be secondary to tobacco abuse. Resumed Neurontin 100 day. Holding Wellbutrin XL. EEG shows severe encephalopathy, burst suppression pattern. Repeat EEG severe encephalopathy RESP: Acute hypercapnic respiratory failure COPD Tobacco abuse ACV tidal volume 550/rate 16/P5/F I/O to 60%. Ventilator bundle. DuoNeb q6 hours. Albuterol q2 hours prn. No Wheezing No Vent weaning until mental status improved CV: PEA cardiac arrest Post cardiac arrest syndrome with shock (shock resolved) Afib with RVR Chronic systolic heart failure with ejection fraction 15-20% (25-30 on echo today) Nonobstructive Coronary artery disease Essential Hypertension, uncontrolled Hyperlipidemia Holding Diovan 160 mg due to acute kidney injury. Restarted coreg, increased to 12.5 mg twice a day. use IV Hydralazine PRN for SBP >170. Start Norvasc 10 mg daily DCCV for Afib RVR with HR 200/min. Continue Cardizem for paroxysmal A fib EKG normal sinus rhythm rate of 99. No apparent acute ischemia. Follow-up serial EKGs and cardiac markers-negative. 2-D echo EF 25-30%. Cardiology Dr. Early Etiology of cardiac arrest unclear. Most likely due to hypercapnia and respiratory acidosis Continue aspirin. Holding statin due to elevated LFTs. GI: GERD Transaminitis, probable ischemic hepatopathy. Orogastric tube. RUQ us-fatty liver, hepatitis panel pending Tube feeds with Glucerna FEN/RENAL: MARQUEZ Lactic acidemia Hyperphosphatemia Benoit in place. Monitor intake and output. Monitor electrolytes and replace as indicated. Hold home NSAID's. Creat stable Nephrology consult for worsening creatinine. Dr. Hughes following. Nonoliguric renal failure ID: UTI Bacteremia with strep viridans, Coag neg staph, pleomorphic GPR Received Zosyn and vancomycin in the emergency department. Continue Zosyn and vancomycin Repeat sputum culture, blood culture and urine culture HEME: No acute hematologic issues. ENDO: Diabetes mellitus with acute hyperglycemia Hold metformin, glipizide, Lantus. Insulin drip algorithm #2. Thyroid studies-essentially euthyroid PROPH: Sq heparin for DVT prophylaxis. Famotidine for stress ulcer prophylaxis and history of GERD ACCESS: Right femoral art line placed by ED physician 05/06/17, removed. L femoral heat exchange catheter and L femoral art line placed 05/07/17-remove both today Next of kin is Cheyanne, her only daughter. She is not . Cheyanne lives in [place]. Has been informed of risk of anoxic brain injury and discussed rationale for induced therapeutic hypothermia. Dr. Brandt Discussed with Dr. Morrison Level 3 ALT CODE. Palliative care consulted. Prognosis appears very poor. Now with multiorgan failure. Daughter may withdraw active life support once family members from [place] can visit. D/W Dr. Adhikari Problem Qualifiers (1) HTN (hypertension): Qualified Codes: I10 - Essential (primary) hypertension Jaqueline Umanzor MD May 14, 2017 09:13
--- NOTE | 2017-05-14 09:36 | RADRPT ---
EXAM DATE/TIME: 05/14/2017 09:09 [place] COMPARISON: CHEST SINGLE AP, May 12, 2017, 3:46. INDICATIONS : Shortness of breath, possible pulmonary disease. MEDICAL HISTORY : Diabetes mellitus type II. Hypertension Hyperlipidemia SURGICAL HISTORY : Cholecystectomy. ENCOUNTER: Subsequent ACUITY: 1 week PAIN SCORE: Non-responsive. LOCATION: Bilateral chest FINDINGS: The patient is intubated with the tip in ET tube 6 cm above the jayson. The NG tube tip is directed i nto the stomach. The heart size is within normal limits. There is some increased density at the left base with silhouetting of the left hemidiaphragm. CONCLUSION: Left lower lobe atelectasis or consolidation. Noé Ybarra MD on May 14, 2017 at 9:33 Board Certified Radiologist. This report was verified electronically.
--- NOTE | 2017-05-14 10:18 | PD.CARD.PN ---
Subjective Subjective Remarks intubated, unresponsive off sedation Objective Medications Current Medications Medications (Trade) Dose Ordered Sig/Scarlett Route Start Time Stop Time Status Last Admin (Brethine Inj) 1 mg UNSCH PRN SQ 05/06/17 22:45 (Tylenol) 650 mg Q6H PRN PO 05/06/17 23:30 05/09/17 15:41 (Zofran Inj) 4 mg Q6H PRN IV PUSH 05/06/17 23:30 (Albuterol Neb) 2.5 mg Q2HR NEB PRN INH 05/06/17 23:30 Miscellaneous Information 1 Q361D XX 05/06/17 23:30 (Chlorhexidine 2% Cloth) Taper DAILY@04 TOP 05/07/17 04:00 05/03/18 03:59 05/13/17 03:36 (Chlorhexidine 2% Cloth) 3 pack UNSCH PRN TOP 05/06/17 23:30 (Aggie-Colace) 1 tab BID PO 05/07/17 09:00 05/14/17 08:42 (Milk Of Magnesia Liq) 30 ml Q12H PRN PO 05/06/17 23:30 (Senokot) 17.2 mg Q12H PRN PO 05/06/17 23:30 (Dulcolax Supp) 10 mg DAILY PRN RECTAL 05/06/17 23:30 (Peridex 0.12% Liq) 15 ml BID@08,20 MT 05/07/17 08:00 05/14/17 08:45 (Pepcid Inj) 10 mg Q12H IV PUSH 05/07/17 06:00 05/14/17 05:09 (Lacrilube Opht Oint) 1 applic Q4H PRN EACH EYE 05/07/17 04:30 05/13/17 09:30 (NS Flush) 2 ml BID IV FLUSH 05/07/17 09:00 05/14/17 08:43 (NS Flush) 2 ml UNSCH PRN IV FLUSH 05/07/17 04:30 Miscellaneous Information 0 ml @ 0 mls/hr UNSCH IV 05/07/17 04:30 (Heparin Inj) 5,000 units Q12H SQ 05/07/17 05:00 05/14/17 05:09 Valproate Sodium 500 mg/Sodium Chloride 105 ml @ 105 mls/hr Q24H IV 05/07/17 09:00 Future Hold 05/07/17 08:50 (Lacrilube Opht Oint) 1 applic Q12HR EACH EYE 05/07/17 09:00 05/14/17 08:43 (Ecotrin Ec) 81 mg DAILY PO 05/08/17 09:00 05/12/17 09:10 Piperacillin Sod/ Tazobactam Sod 50 ml @ 100 mls/hr Q6H IV 05/07/17 09:00 05/14/17 08:43 (Lactulose Liq) 30 ml DAILY OG-TUBE 05/07/17 09:00 05/14/17 08:42 (D50w (Vial) Inj) 50 ml UNSCH PRN IV PUSH 05/08/17 00:30 (Glucagon Inj) 1 mg UNSCH PRN OTHER 05/08/17 00:30 (NovoLOG SUPPLEMENTAL SCALE) 1 Q4H SQ 05/08/17 00:30 05/14/17 09:19 Levetriacetam 100 ml @ 400 mls/hr Q12HR IV 05/10/17 02:15 05/14/17 08:43 (Trandate Inj) 20 mg Q4H PRN IV 05/10/17 10:15 Pharmacy Profile Note 0 ml @ 0 mls/hr UNSCH OTHER 05/10/17 10:30 Diltiazem HCl 125 mg/Sodium Chloride 125 ml @ 5 mls/hr TITRATE PRN IV 05/10/17 12:00 05/13/17 17:45 (Depakote Er) 500 mg DAILY PO 05/10/17 12:00 05/12/17 09:10 Vancomycin HCl 1500 mg/Sodium Chloride 515 ml @ 250 mls/hr Q12H IV 05/10/17 13:00 Future Hold 05/11/17 01:08 (Apresoline Inj) 20 mg Q4H PRN IV PUSH 05/13/17 11:15 (Duoneb Neb) 1 ampule Q6HR NEB INH 05/14/17 10:00 (Coreg) 12.5 mg BID PO 05/14/17 21:00 (Norvasc) 10 mg DAILY PO 05/14/17 09:15 Vital Signs / I&O Vital Signs Date Time Temp Pulse Resp B/P (MAP) Pulse Ox O2 Delivery O2 Flow Rate FiO2 05/14/17 10:02 98 35 05/14/17 07:42 99 35 05/14/17 06:00 98 05/14/17 04:00 30 05/14/17 04:00 100.6 98 16 157/73 (101) 99 148/76 (100) 05/14/17 04:00 104 05/14/17 03:27 99 35 05/14/17 02:00 100 05/14/17 00:36 99 35 05/14/17 00:00 30 05/14/17 00:00 99.9 99 16 160/74 (102) 99 151/79 (103) 05/14/17 00:00 99 151/79 05/13/17 22:00 93 05/13/17 21:28 99 35 05/13/17 20:00 99.9 98 16 147/70 (95) 99 141/74 (96) 05/13/17 20:00 97 05/13/17 20:00 99 35 05/13/17 20:00 30 05/13/17 18:00 94 05/13/17 17:45 93 139/70 05/13/17 16:28 100 35 05/13/17 16:00 30 05/13/17 16:00 91 05/13/17 16:00 100.5 92 16 130/67 (88) 100 135/68 (90) 05/13/17 14:00 104 05/13/17 12:05 98 35 05/13/17 12:00 100.2 90 16 134/68 (90) 98 138/69 (92) 05/13/17 12:00 30 05/13/17 12:00 90 I/O 05/13/17 05/13/17 05/13/17 05/14/17 05/14/17 05/14/17 07:00 15:00 23:00 07:00 15:00 23:00 Intake Total 406 ml 665 ml 420 ml 379 ml Output Total 725 ml 700 ml 550 ml Balance -319 ml 665 ml -280 ml -171 ml Intake IV Total 50 ml 665 ml 300 ml 112 ml Tube Feeding 256 ml 147 ml Other 100 ml 120 ml 120 ml Output Urine Total 725 ml 700 ml 550 ml # Bowel Movements 4 1 1 Physical Exam GENERAL: SKIN: Warm and dry. HEAD: Normocephalic. EYES: No scleral icterus. No injection or drainage. NECK: Supple, trachea midline. No JVD or lymphadenopathy. CARDIOVASCULAR: Regular rate and rhythm without murmurs, gallops, or rubs. RESPIRATORY: Breath sounds equal bilaterally. No accessory muscle use. GASTROINTESTINAL: Abdomen soft, non-tender, nondistended. MUSCULOSKELETAL: No cyanosis, or edema. BACK: Nontender without obvious deformity. No CVA tenderness. Imaging Last 24 hours Impressions Chest X-Ray 05/14/17 0000 Signed Impressions: Service Date/Time: Tuesday, May 14, 2017 09:09 - CONCLUSION: Left lower lobe atelectasis or consolidation. Noé Ybarra MD Assessment and Plan Problem List: (1) CAD (coronary artery disease) ICD Codes: I25.10 - Atherosclerotic heart disease of [place] coronary artery without angina pectoris (2) CHRONIC OBSTRUCTIVE PULMON DISEASE W ACUTE LOWER RESP INFCT ICD Codes: J44.0 - CHRONIC OBSTRUCTIVE PULMON DISEASE W ACUTE LOWER RESP INFCT Status: Acute (3) Cardiomyopathy ICD Codes: I42.9 - Cardiomyopathy Status: Acute (4) Cardiopulmonary arrest ICD Codes: I46.9 - Cardiac arrest, cause unspecified Status: Acute (5) Diabetes mellitus ICD Codes: E11.9 - Type 2 diabetes mellitus without complications Status: Acute Assessment and Plan 1.) Cardiomyopathy - euvolemic, obie and beta navya held due to recent cardiogenic shock and uncertain neurologic status 2.) CAD - continue aspirin, statin held due to shock liver and elevated lfts Aguila Early MD May 14, 2017 10:18
[2017-05-14 12:06] LABS: AUTOMATED NEUTROPHIL # 7.2 TH/MM3 (1.8-7.7); BASOPHIL % 0.5 % (0.0-2.0); EOSINOPHIL % 0.1 % (0.0-4.0); HEMO FLAGS DIFF FINAL; LYMPH % 11.6 % (9.0-44.0); LYMPHOCYTE # 1.2 TH/MM3 (1.0-4.8); MEAN CORPUSCULAR HEMOGLOBIN 30.3 PG (27.0-34.0); MEAN CORPUSCULAR HGB CONC 32.6 % (32.0-36.0); MONO % 18.5 % (0.0-8.0); NEUT % 69.3 % (16.0-70.0); PLATELET COUNT 200 TH/MM3 (150-450); RED BLOOD COUNT 3.33 MIL/MM3 (4.00-5.30); RED CELL DISTRIBUTION WIDTH 14.4 % (11.6-17.2); WHITE BLOOD COUNT 10.4 TH/MM3 (4.0-11.0)
[2017-05-14 12:39] LABS: ALT (GPT) 63 U/L (10-53); ANION GAP 9 MEQ/L (5-15); AST (GOT) 99 U/L (15-37); BICARBONATE 23.6 MEQ/L (21.0-32.0); BLOOD UREA NITROGEN 28 MG/DL (7-18); CHLORIDE 121 MEQ/L (98-107); GLOMERULAR FILTRATION RATE 40 ML/MIN (>89); POTASSIUM 4.1 MEQ/L (3.5-5.1)
[2017-05-14 12:41] LABS: ALKALINE PHOSPHATASE 96 U/L (45-117); SODIUM (NA) 154 MEQ/L (136-145); TOTAL BILIRUBIN ADULT 0.5 MG/DL (0.2-1.0)
[2017-05-14] MEDS: DILTIAZEM INJ 125 MG in SODIUM CHLORIDE 0.9% INJ 100 ML IV PRN (13:01)
--- NOTE | 2017-05-14 13:46 | HHI.NPPN ---
Subjective History of Present Illness 56 year old female with cardiomyopathy COPD CAD Anoxic bran injury and develop ARF. Additional Remarks Patient remain on the vent. and clinically same. Objective Data Data Vital Signs Date Time Temp Pulse Resp B/P (MAP) Pulse Ox O2 Delivery O2 Flow Rate FiO2 05/14/17 13:01 97 141/69 05/14/17 12:55 98 35 05/14/17 10:02 98 35 05/14/17 07:42 99 35 05/14/17 06:00 98 05/14/17 04:00 30 05/14/17 04:00 100.6 98 16 157/73 (101) 99 148/76 (100) 05/14/17 04:00 104 05/14/17 03:27 99 35 05/14/17 02:00 100 05/14/17 00:36 99 35 05/14/17 00:00 30 05/14/17 00:00 99.9 99 16 160/74 (102) 99 151/79 (103) 05/14/17 00:00 99 151/79 05/13/17 22:00 93 05/13/17 21:28 99 35 05/13/17 20:00 99.9 98 16 147/70 (95) 99 141/74 (96) 05/13/17 20:00 97 05/13/17 20:00 99 35 05/13/17 20:00 30 05/13/17 18:00 94 05/13/17 17:45 93 139/70 05/13/17 16:28 100 35 05/13/17 16:00 30 05/13/17 16:00 91 05/13/17 16:00 100.5 92 16 130/67 (88) 100 135/68 (90) 05/13/17 14:00 104 -: 05/14/17 1130 05/14/17 1130 Microbiology 05/14/17 Aerobic Blood Culture, Received Pending 05/14/17 Anaerobic Blood Culture, Received Pending 05/14/17 Aerobic Blood Culture, Received Pending 05/14/17 Anaerobic Blood Culture, Received Pending Physical Exam General Appearance Remarks Intubated and unresponsive. Neck Neck Exam: Neck Supple Pulmonary Resp Exam: Breath Sounds Equal, Rhonchi, Decreased Bases, Poor Inspiratory Effort Cardiology CV Exam: Irregular Gastrointestinal/Abdomen GI Exam: Soft, Bowel Sounds Present, Distended Extremeties Extremities Exam: Moderate Edema Neurologic Neuro Exam: Unresponsive Assessment/Plan Problem List: (1) Acute renal failure ICD Codes: N17.9 - Acute kidney failure, unspecified Plan: Patient with acute renal failure cardiomyopathy CHF coronary syndrome ATN Daughter at bedside discussed with her. ARF/CKD stable but she has anoxic brain injury and will be on Ventilator support Her prognosis is poor due to anoxic brain injury follow UOP/BMP. Creatinine is slightly better. (2) Cardiopulmonary arrest ICD Codes: I46.9 - Cardiac arrest, cause unspecified Status: Acute Plan: Critical care following (3) Cardiogenic shock ICD Codes: R57.0 - Cardiogenic shock Status: Acute Plan: Cardiomyopathy (4) Anoxic encephalopathy ICD Codes: G93.1 - Anoxic brain damage, not elsewhere classified Status: Acute Plan: Brain injury with no recovery (5) Cardiomyopathy ICD Codes: I42.9 - Cardiomyopathy Status: Acute Plan: EF of 20% Problem Qualifiers (1) Acute renal failure: Qualified Codes: N17.0 - Acute kidney failure with tubular necrosis Fany Weber MD May 14, 2017 13:46
[2017-05-14] MEDS: ACETAMINOPHEN 325 MG TAB PO PRN (17:33)
[2017-05-14] MEDS: CARVEDILOL 12.5 MG TAB PO SCH (21:05)
[2017-05-15] VITALS (20 sets, daily range): BP systolic 111–153; BP diastolic 58–68; PULSE 81–114; RESP 16–17; TEMP 100.6–103.5; O2SAT 94–100
[2017-05-15] MEDS: INSULIN ASPART SUPPLEMENTAL SCALE SQ SCH ×6 (00:30→20:16)
[2017-05-15] MEDS: ACETAMINOPHEN 325 MG TAB PO PRN ×3 (00:47→18:51)
[2017-05-15] MEDS: DILTIAZEM INJ 125 MG in SODIUM CHLORIDE 0.9% INJ 100 ML IV PRN ×2 (00:48→14:24)
[2017-05-15] MEDS: PIPERACIL-TAZO 3.375 GM PREMIX 50 ML IV SCH ×4 (02:39→20:15)
[2017-05-15] MEDS: CHLORHEXIDINE GLUCONATE 2 % 1 PACK (2 CLOTHS) TOP SCH (04:00)
[2017-05-15] MEDS: RESP: ALBUTEROL 2.5 MG/IPRATROPIUM 0.5 MG NEB (SCH) INH ×4 (04:25→21:19)
[2017-05-15] MEDS: FAMOTIDINE 20 MG/2 ML VIAL IV PUSH SCH ×2 (05:05→16:48)
[2017-05-15] MEDS: HEPARIN SODIUM - SQ 10,000 UNITS/ML VIAL SQ SCH ×2 (05:06→16:41)
[2017-05-15] MEDS: DIVALPROEX SODIUM E.R. 500 MG TAB PO SCH (09:00)
[2017-05-15] MEDS: ASPIRIN EC 81 MG TABEC PO SCH (09:00)
[2017-05-15] MEDS: DOCUSATE SODIUM 50 MG/SENNA 8.6 MG TAB PO SCH ×2 (09:50→20:15)
[2017-05-15] MEDS: CARVEDILOL 12.5 MG TAB PO SCH ×2 (09:50→20:15)
[2017-05-15] MEDS: LACTULOSE SYRUP 20 GM/30 ML CUP OG-TUBE SCH (09:50)
[2017-05-15] MEDS: SODIUM CHLORIDE 0.9% FLUSH 10 ML FLUSH IV FLUSH SCH ×2 (09:50→20:15)
[2017-05-15] MEDS: levETIRAcetam 1000 MG INJ 100 ML IV SCH ×2 (09:51→20:51)
[2017-05-15] MEDS: ARTIFICIAL TEARS OPTH OINT 3.5 APPLIC/3.5 GM TUBO EACH EYE SCH ×2 (09:54→20:17)
[2017-05-15] MEDS: CHLORHEXIDINE 0.12% (ORAL KIT) 15 ML CUP MT SCH ×2 (11:03→20:19)
--- NOTE | 2017-05-15 12:40 | HHI.CCPN ---
Subjective Remarks/Hospital Course 56-year-old female with past medical history of hypertension, chronic systolic heart failure, diabetes, COPD bipolar disorder, seizure disorder who presented to [facility] emergency department via [facility] following cardiac arrest. [facility] was originally called for shortness of breath and when they arrived patient was unresponsive and in PEA. Combitube was placed. CPR was initiated and patient was administered epinephrine 4, 1 amp bicarbonate, Narcan 2 mg prior to arrival via left tibial I/O. Blood glucose was 334. Exact duration of prehospital CPR is unclear. Combitube was removed and she was intubated upon arrival. Patient had ROSC 5 minutes after arrival. She received additional epinephrine 2 in the ED. She also received 1 L normal saline bolus, vancomycin, Zosyn in the ED. Critical care medicine is consulted for admission. EKG has no acute ischemia. SUBJ 05/07: Intubated sedated neuromuscularly paralyzed. Induced hypothermia initiated at 7 AM, 2-D echo shows EF 25-30%, mild to moderate MR. Serial troponins negative 05/08: Remains neuromuscularly paralyzed. Hypothermia will be completed by the known and rewarming was started. Remains off inotropes and pressors 05/09: Hypothermia protocol completed, placed overnight on Versed also in addition to propofol and fentanyl for tachycardia and asynchrony. Currently patient while on sedation do not open eyes with very slight withdrawal to pain 05/10: Developed Afib with RVR yesterday with HR in 200's DC cardioverted at night by Dr. Chu. Placed back on Versed. RN reports paroxysmal A fib. EEG pending at this time for subclinical sz. EEG 05/07 burst suppression pattern. Neuro prognosis poor 05/11: No neuro improvement. Creat worsening, nephrology consulted. EEG severe encephalopathy consistent with anoxic injury. Palliative care is following 05/12: There had been no improvement in neuro status after completion of code cool approximately 4 days ago. Patient has not shown not seen any signs of improvement. Palliative care met with family. Patient is developing multiorgan dysfunction syndrome. Daughter wants withdrawal of life support but wants to wait until some other family members can visit from [place] 05/13: No meaningful recovery yet. Opens eyes partially to pain. Weakly withdraws all extremities to pain. UO 1.8L in 24 hours. Family considering withdrawal of life support today, considering comorbidities and poor neuro recovery after cooling 05/14: Eyes are spontaneously open but with upward gaze. No tracking no response to threat. Withdraws bilateral upper extremity to pain. Had been off sedation more than 4 days 05/15: Neuro exam remains unchanged, even less eye-opening and withdrawal. Fever up to 103.5. Pancultured. Continue on vancomycin and Zosyn until cultures are back. Objective Vital Signs Date Time Temp Pulse Resp B/P (MAP) Pulse Ox O2 Delivery O2 Flow Rate FiO2 05/15/17 12:00 35 05/15/17 10:58 98 05/15/17 08:00 103.5 105 17 151/65 (93) 147/68 (94) Intake and Output 05/15/17 05/15/17 05/16/17 08:00 16:00 00:00 Intake Total 563 ml Output Total 850 ml Balance -287 ml Result Diagram: 05/14/17 1130 05/14/17 1130 Objective Remarks GENERAL: Obese female who is intubated, unresponsive SKIN: Warm and dry. HEAD: Atraumatic. Normocephalic. EYES: Bilateral exophthalmus. Pupils equal and round, reactive. Positive corneal ENT: No nasal bleeding or discharge. Orotracheally intubated NECK: Trachea midline. No JVD appreciated. No meningismus CARDIOVASCULAR: Regular rate and rhythm, sinus rhythm on the monitor with rate in the 70s. Paroxysmal A Fib RESPIRATORY: ACV tidal volume 550/rate 16/P5. Breath sounds are equal bilaterally without wheezes Rales or rhonchi. GASTROINTESTINAL: Abdomen protuberant soft. No appreciable tenderness rebound or guarding. Bowel sounds are present. : Benoit catheter is in place MUSCULOSKELETAL: Extremities without clubbing, cyanosis, or edema. NEUROLOGICAL: Off sedation for more than 5 days. Minimal partial eye opening to pain. Slight withdrawal to pain in all 4 ext upper extremities more than lower A/P Problem List: (1) Cardiac arrest ICD Code: I46.9 - Cardiac arrest, cause unspecified (2) Anoxic-ischemic encephalopathy ICD Code: G93.1 - Anoxic brain damage, not elsewhere classified; I67.82 - Cerebral ischemia (3) Chronic systolic heart failure ICD Code: I50.22 - Chronic systolic (congestive) heart failure Status: Chronic (4) Exophthalmos of both eyes ICD Code: H05.20 - Unspecified exophthalmos Status: Chronic (5) HTN (hypertension) ICD Code: I10 - Essential (primary) hypertension Status: Chronic (6) HLD (hyperlipidemia) ICD Code: E78.5 - Hyperlipidemia, unspecified Status: Chronic (7) Cardiogenic shock ICD Code: R57.0 - Cardiogenic shock Status: Acute (8) Acute respiratory failure with hypercapnia ICD Code: J96.02 - Acute respiratory failure with hypercapnia Status: Acute (9) Obesity (BMI 30-39.9) ICD Code: E66.9 - Obesity, unspecified Status: Chronic (10) CHF (congestive heart failure) ICD Code: I50.9 - CHF (congestive heart failure) Status: Acute (11) Bipolar disorder ICD Code: F31.9 - Bipolar affective disorder Status: Chronic (12) COPD (chronic obstructive pulmonary disease) ICD Code: J44.9 - Chronic obstructive pulmonary disease Status: Chronic (13) Tobacco abuse ICD Code: Z72.0 - Tobacco use Status: Chronic Assessment and Plan NEURO/PSYCH: Acute anoxic encephalopathy, severe Bipolar disorder Status post completion of induced therapeutic hypothermia. initiated at 0700 , completed 05/08/17. Off sedation more than 5 days No neurologic improvement yet, prognosis poor. Neurology Dr. Solitario. CT brain - negative. Depakote level. 48. Was on Depakote for bipolar. restarted Depakote. Lactulose 30 daily. Ammonia level down to 31. Neg urine drug screen, APAP, ASA level. Carboxyhemoglobin level mildly elevated, may be secondary to tobacco abuse. Resumed Neurontin 100 day. Holding Wellbutrin XL. EEG shows severe encephalopathy, burst suppression pattern. Repeat EEG severe encephalopathy RESP: Acute hypercapnic respiratory failure COPD Tobacco abuse ACV tidal volume 550/rate 16/P5/FiO2 to 35%. Ventilator bundle. DuoNeb q6 hours. Albuterol q2 hours prn. No Wheezing No Vent weaning until mental status improved CV: PEA cardiac arrest Post cardiac arrest syndrome with shock (resolved) Afib with RVR Chronic systolic heart failure with ejection fraction 15-20% (25-30 on echo today) Nonobstructive Coronary artery disease Essential Hypertension, uncontrolled Hyperlipidemia Holding Diovan 160 mg due to acute kidney injury. Coreg 12.5 mg twice a day. use IV Hydralazine PRN for SBP >170. Norvasc 10 mg daily DCCV for Afib RVR with HR 200/min. Continue Cardizem for paroxysmal A fib EKG normal sinus rhythm rate of 99. No apparent acute ischemia. Follow-up serial EKGs and cardiac markers-negative. 2-D echo EF 25-30%. Cardiology Dr. Early Etiology of cardiac arrest unclear. Most likely due to hypercapnia and respiratory acidosis Continue aspirin. Holding statin due to elevated LFTs. GI: GERD Transaminitis, probable ischemic hepatopathy. Orogastric tube. RUQ us-fatty liver, hepatitis panel pending Tube feeds with Glucerna FEN/RENAL: MARQUEZ Lactic acidemia Hyperphosphatemia Benoit in place. Monitor intake and output. Monitor electrolytes and replace as indicated. Hold home NSAID's. Creat improved today Nephrology consult for worsening creatinine. Dr. Hughes following. Nonoliguric renal failure ID: High fever, sepsis UTI Bacteremia with strep viridans, Coag neg staph, pleomorphic GPR Received Zosyn and vancomycin in the emergency department. Continue Zosyn and vancomycin Repeat sputum culture, blood culture and urine culture f/u HEME: No acute hematologic issues. ENDO: Diabetes mellitus with acute hyperglycemia Hold metformin, glipizide, Lantus. SSI Thyroid studies-essentially euthyroid PROPH: Sq heparin for DVT prophylaxis. Famotidine for stress ulcer prophylaxis and history of GERD ACCESS: Right femoral art line placed by ED physician 05/06/17, removed. L femoral heat exchange catheter and L femoral art line placed 05/07/17-remove both today Next of kin is Cheyanne, her only daughter. She is not . Cheyanne lives in [place]. Has been informed of risk of anoxic brain injury and discussed rationale for induced therapeutic hypothermia. Dr. Brandt Discussed with Dr. Morrison Level 3 ALT CODE. Palliative care following. Prognosis appears very poor. Now with multiorgan failure. Daughter may withdraw active life support once family members from [place] can visit. D/W Dr. Adhikari. No final decision has been made by family Problem Qualifiers (1) HTN (hypertension): Qualified Codes: I10 - Essential (primary) hypertension Jaqueline Umanzor MD May 15, 2017 12:40
[2017-05-15] MEDS: SODIUM CHLOR 0.45% 1000 ML INJ 1,000 ML IV SCH (13:11)
[2017-05-15] MEDS: VANCOMYCIN 1,500 MG/NS 500 ML IV SCH ×2 (13:11)
--- NOTE | 2017-05-15 14:14 | PD.CARD.PN ---
Subjective Subjective Remarks intubated, unresponsive off sedation Objective Medications Current Medications Medications (Trade) Dose Ordered Sig/Scalrett Route Start Time Stop Time Status Last Admin (Brethine Inj) 1 mg UNSCH PRN SQ 05/06/17 22:45 (Tylenol) 650 mg Q6H PRN PO 05/06/17 23:30 05/15/17 11:02 (Zofran Inj) 4 mg Q6H PRN IV PUSH 05/06/17 23:30 (Albuterol Neb) 2.5 mg Q2HR NEB PRN INH 05/06/17 23:30 Miscellaneous Information 1 Q361D XX 05/06/17 23:30 (Chlorhexidine 2% Cloth) Taper DAILY@04 TOP 05/07/17 04:00 05/03/18 03:59 05/13/17 03:36 (Chlorhexidine 2% Cloth) 3 pack UNSCH PRN TOP 05/06/17 23:30 (Aggie-Colace) 1 tab BID PO 05/07/17 09:00 05/15/17 09:50 (Milk Of Magnesia Liq) 30 ml Q12H PRN PO 05/06/17 23:30 (Senokot) 17.2 mg Q12H PRN PO 05/06/17 23:30 (Dulcolax Supp) 10 mg DAILY PRN RECTAL 05/06/17 23:30 (Peridex 0.12% Liq) 15 ml BID@08,20 MT 05/07/17 08:00 05/15/17 11:03 (Pepcid Inj) 10 mg Q12H IV PUSH 05/07/17 06:00 05/15/17 05:05 (Lacrilube Opht Oint) 1 applic Q4H PRN EACH EYE 05/07/17 04:30 05/13/17 09:30 (NS Flush) 2 ml BID IV FLUSH 05/07/17 09:00 05/15/17 09:50 (NS Flush) 2 ml UNSCH PRN IV FLUSH 05/07/17 04:30 Miscellaneous Information 0 ml @ 0 mls/hr UNSCH IV 05/07/17 04:30 (Heparin Inj) 5,000 units Q12H SQ 05/07/17 05:00 05/15/17 05:06 Valproate Sodium 500 mg/Sodium Chloride 105 ml @ 105 mls/hr Q24H IV 05/07/17 09:00 Future Hold 05/07/17 08:50 (Lacrilube Opht Oint) 1 applic Q12HR EACH EYE 05/07/17 09:00 05/15/17 09:54 (Ecotrin Ec) 81 mg DAILY PO 05/08/17 09:00 05/12/17 09:10 Piperacillin Sod/ Tazobactam Sod 50 ml @ 100 mls/hr Q6H IV 05/07/17 09:00 05/15/17 09:51 (Lactulose Liq) 30 ml DAILY OG-TUBE 05/07/17 09:00 05/15/17 09:50 (D50w (Vial) Inj) 50 ml UNSCH PRN IV PUSH 05/08/17 00:30 (Glucagon Inj) 1 mg UNSCH PRN OTHER 05/08/17 00:30 (NovoLOG SUPPLEMENTAL SCALE) 1 Q4H SQ 05/08/17 00:30 05/15/17 13:12 Levetriacetam 100 ml @ 400 mls/hr Q12HR IV 05/10/17 02:15 05/15/17 09:51 (Trandate Inj) 20 mg Q4H PRN IV 05/10/17 10:15 Pharmacy Profile Note 0 ml @ 0 mls/hr UNSCH OTHER 05/10/17 10:30 Diltiazem HCl 125 mg/Sodium Chloride 125 ml @ 5 mls/hr TITRATE PRN IV 05/10/17 12:00 05/15/17 00:48 (Depakote Er) 500 mg DAILY PO 05/10/17 12:00 05/12/17 09:10 (Apresoline Inj) 20 mg Q4H PRN IV PUSH 05/13/17 11:15 (Duoneb Neb) 1 ampule Q6HR NEB INH 05/14/17 10:00 05/15/17 09:18 (Coreg) 12.5 mg BID PO 05/14/17 21:00 05/15/17 09:50 (Norvasc) 10 mg DAILY PO 05/14/17 09:15 05/15/17 09:50 Vancomycin HCl 1500 mg/Sodium Chloride 515 ml @ 257.5 mls/ hr Q24H IV 05/15/17 12:00 05/15/17 13:11 Miscellaneous Information SPECIFIC LAB TO BE ESMER... ONCE ONCE .XX 05/18/17 11:45 05/18/17 11:46 Sodium Chloride 1,000 ml @ 100 mls/hr Q10H IV 05/15/17 13:00 05/15/17 13:11 Vital Signs / I&O Vital Signs Date Time Temp Pulse Resp B/P (MAP) Pulse Ox O2 Delivery O2 Flow Rate FiO2 05/15/17 13:49 100 35 05/15/17 12:00 35 05/15/17 10:58 98 35 05/15/17 09:13 97 35 05/15/17 08:00 35 05/15/17 08:00 103.5 105 17 151/65 (93) 97 147/68 (94) 05/15/17 06:00 98 05/15/17 04:24 96 35 05/15/17 04:00 101 05/15/17 04:00 35 05/15/17 04:00 100.6 101 16 153/67 (95) 95 146/66 (92) 05/15/17 02:00 90 05/15/17 00:48 100 160/74 05/15/17 00:27 97 35 05/15/17 00:00 35 05/15/17 00:00 101.0 89 16 145/65 (91) 97 141/66 (91) 05/15/17 00:00 89 05/14/17 22:00 96 05/14/17 21:35 100 35 05/14/17 20:00 100.5 100 16 156/71 (99) 98 145/69 (94) 05/14/17 20:00 100 05/14/17 20:00 35 05/14/17 19:00 16 05/14/17 18:00 96 05/14/17 16:35 97 35 05/14/17 16:00 35 05/14/17 16:00 101.8 96 16 147/67 (93) 97 137/63 (87) 05/14/17 16:00 96 I/O 05/14/17 05/14/17 05/14/17 05/15/17 05/15/17 05/15/17 07:00 15:00 23:00 07:00 15:00 23:00 Intake Total 379 ml 150 ml 731 ml 563 ml Output Total 550 ml 1100 ml 850 ml Balance -171 ml 150 ml -369 ml -287 ml Intake IV Total 112 ml 150 ml 150 ml 189 ml Tube Feeding 147 ml 381 ml 314 ml Other 120 ml 200 ml 60 ml Output Urine Total 550 ml 1100 ml 850 ml # Bowel Movements 1 2 2 Physical Exam GENERAL: SKIN: Warm and dry. HEAD: Normocephalic. EYES: No scleral icterus. No injection or drainage. NECK: Supple, trachea midline. No JVD or lymphadenopathy. CARDIOVASCULAR: Regular rate and rhythm without murmurs, gallops, or rubs. RESPIRATORY: Breath sounds equal bilaterally. No accessory muscle use. GASTROINTESTINAL: Abdomen soft, non-tender, nondistended. MUSCULOSKELETAL: No cyanosis, or edema. BACK: Nontender without obvious deformity. No CVA tenderness. Laboratory Laboratory Tests Test 05/15/17 04:30 Random Vancomycin Level 6.6 COMMENT Assessment and Plan Problem List: (1) CAD (coronary artery disease) ICD Codes: I25.10 - Atherosclerotic heart disease of [place] coronary artery without angina pectoris (2) CHRONIC OBSTRUCTIVE PULMON DISEASE W ACUTE LOWER RESP INFCT ICD Codes: J44.0 - CHRONIC OBSTRUCTIVE PULMON DISEASE W ACUTE LOWER RESP INFCT Status: Acute (3) Cardiomyopathy ICD Codes: I42.9 - Cardiomyopathy Status: Acute (4) Cardiopulmonary arrest ICD Codes: I46.9 - Cardiac arrest, cause unspecified Status: Acute (5) Diabetes mellitus ICD Codes: E11.9 - Type 2 diabetes mellitus without complications Status: Acute Assessment and Plan 1.) Cardiomyopathy - euvolemic, obie and beta navya held due to recent cardiogenic shock and uncertain neurologic status 2.) CAD - continue aspirin, statin held due to shock liver and elevated lfts Aguila Early MD May 15, 2017 14:14
--- NOTE | 2017-05-15 15:14 | HHI.NPPN ---
Subjective History of Present Illness 56 year old female with cardiomyopathy COPD CAD Anoxic bran injury and develop ARF. Additional Remarks Patient remain on the vent. and sedated, now spiking fever. Objective Data Data Vital Signs Date Time Temp Pulse Resp B/P (MAP) Pulse Ox O2 Delivery O2 Flow Rate FiO2 05/15/17 14:24 91 130/62 05/15/17 13:49 100 35 05/15/17 12:00 35 05/15/17 10:58 98 35 05/15/17 09:13 97 35 05/15/17 08:00 35 05/15/17 08:00 103.5 105 17 151/65 (93) 97 147/68 (94) 05/15/17 06:00 98 05/15/17 04:24 96 35 05/15/17 04:00 101 05/15/17 04:00 35 05/15/17 04:00 100.6 101 16 153/67 (95) 95 146/66 (92) 05/15/17 02:00 90 05/15/17 00:48 100 160/74 05/15/17 00:27 97 35 05/15/17 00:00 35 05/15/17 00:00 101.0 89 16 145/65 (91) 97 141/66 (91) 05/15/17 00:00 89 05/14/17 22:00 96 05/14/17 21:35 100 35 05/14/17 20:00 100.5 100 16 156/71 (99) 98 145/69 (94) 05/14/17 20:00 100 05/14/17 20:00 35 05/14/17 19:00 16 05/14/17 18:00 96 05/14/17 16:35 97 35 05/14/17 16:00 35 05/14/17 16:00 101.8 96 16 147/67 (93) 97 137/63 (87) 05/14/17 16:00 96 -: 05/14/17 1130 05/14/17 1130 Microbiology 05/15/17 Gram Stain - Final, Resulted 05/15/17 Sputum Culture, Resulted Pending 05/14/17 Urine Culture, Received Pending Physical Exam General Appearance Remarks Intubated and unresponsive. Neck Neck Exam: Neck Supple Pulmonary Resp Exam: Breath Sounds Equal, Rhonchi, Decreased Bases, Poor Inspiratory Effort Cardiology CV Exam: Irregular Gastrointestinal/Abdomen GI Exam: Soft, Bowel Sounds Present, Distended Extremeties Extremities Exam: Moderate Edema Neurologic Neuro Exam: Unresponsive Assessment/Plan Problem List: (1) Acute renal failure ICD Codes: N17.9 - Acute kidney failure, unspecified Plan: Patient with acute renal failure cardiomyopathy CHF coronary syndrome ATN Daughter at bedside discussed with her. ARF/CKD stable but she has anoxic brain injury and will be on Ventilator support Her prognosis is poor due to anoxic brain injury follow UOP/BMP. Creatinine is improving, Na. increased. Started on 1/2 NS. Follow the urine out put and BMP. (2) Cardiopulmonary arrest ICD Codes: I46.9 - Cardiac arrest, cause unspecified Status: Acute Plan: Critical care following (3) Cardiogenic shock ICD Codes: R57.0 - Cardiogenic shock Status: Acute Plan: Cardiomyopathy (4) Anoxic encephalopathy ICD Codes: G93.1 - Anoxic brain damage, not elsewhere classified Status: Acute Plan: Brain injury with no recovery (5) Cardiomyopathy ICD Codes: I42.9 - Cardiomyopathy Status: Acute Plan: EF of 20% Problem Qualifiers (1) Acute renal failure: Qualified Codes: N17.0 - Acute kidney failure with tubular necrosis Fany Weber MD May 15, 2017 15:14
[2017-05-15 20:32] LABS: AUTOMATED NEUTROPHIL # 8.2 TH/MM3 (1.8-7.7); BASOPHIL # 0.2 TH/MM3 (0-0.2); BASOPHIL % 1.4 % (0.0-2.0); EOSINOPHIL % 0.4 % (0.0-4.0); HEMATOCRIT 30.3 % (35.0-46.0); HEMO FLAGS DIFF FINAL; LYMPH % 15.8 % (9.0-44.0); LYMPHOCYTE # 1.9 TH/MM3 (1.0-4.8); MEAN CELL VOLUME 92.7 FL (80.0-100.0); MEAN CORPUSCULAR HEMOGLOBIN 29.5 PG (27.0-34.0); MEAN CORPUSCULAR HGB CONC 31.8 % (32.0-36.0); MONO % 14.3 % (0.0-8.0); NEUT % 68.1 % (16.0-70.0); PLATELET COUNT 224 TH/MM3 (150-450); RED BLOOD COUNT 3.27 MIL/MM3 (4.00-5.30); RED CELL DISTRIBUTION WIDTH 14.7 % (11.6-17.2); WHITE BLOOD COUNT 12.1 TH/MM3 (4.0-11.0)
[2017-05-16] VITALS (31 sets, daily range): BP systolic 134–171; BP diastolic 63–98; PULSE 88–109; RESP 16–21; TEMP 99.2–101.5; O2SAT 97–100
[2017-05-16] MEDS: INSULIN ASPART SUPPLEMENTAL SCALE SQ SCH ×6 (00:02→20:17)
[2017-05-16] MEDS: PIPERACIL-TAZO 3.375 GM PREMIX 50 ML IV SCH ×4 (02:36→20:17)
[2017-05-16] MEDS: ACETAMINOPHEN 325 MG TAB PO PRN (03:15)
[2017-05-16] MEDS: DILTIAZEM INJ 125 MG in SODIUM CHLORIDE 0.9% INJ 100 ML IV PRN ×2 (03:58→20:44)
[2017-05-16] MEDS: CHLORHEXIDINE GLUCONATE 2 % 1 PACK (2 CLOTHS) TOP SCH (04:00)
[2017-05-16] MEDS: RESP: ALBUTEROL 2.5 MG/IPRATROPIUM 0.5 MG NEB (SCH) INH ×4 (04:44→20:41)
[2017-05-16] MEDS: FAMOTIDINE 20 MG/2 ML VIAL IV PUSH SCH ×2 (05:05→16:31)
[2017-05-16] MEDS: HEPARIN SODIUM - SQ 10,000 UNITS/ML VIAL SQ SCH ×2 (05:05→16:31)
[2017-05-16] MEDS: SODIUM CHLOR 0.45% 1000 ML INJ 1,000 ML IV SCH (05:06)
--- NOTE | 2017-05-16 06:23 | RADRPT ---
EXAM DATE/TIME: 05/16/2017 04:55 [facility] COMPARISON: CHEST SINGLE AP, May 14, 2017, 9:09. INDICATIONS : Shortness of breath, possible pulmonary disease. MEDICAL HISTORY : Diabetes mellitus type II. Hypertension Hyperlipdemia SURGICAL HISTORY : Cholecystectomy. ENCOUNTER: Subsequent ACUITY: 1 week PAIN SCORE: Non-responsive. LOCATION: Bilateral chest FINDINGS: A single view of the chest demonstrates left lower lobe density. Heart enlarged. Endotracheal tube an d nasogastric tube unchanged. The cardiomediastinal contours are unremarkable. Osseous structures ar e intact. CONCLUSION: Persistent left lower lobe density. Cardiomegaly. Yasir Calvert MD on May 16, 2017 at 6:21 Board Certified Radiologist. This report was verified electronically.
[2017-05-16 07:17] LABS: AUTOMATED NEUTROPHIL # 9.9 TH/MM3 (1.8-7.7); BASOPHIL # 0.1 TH/MM3 (0-0.2); BASOPHIL % 0.7 % (0.0-2.0); EOSINOPHIL # 0.1 TH/MM3 (0-0.4); EOSINOPHIL % 0.4 % (0.0-4.0); HEMATOCRIT 30.4 % (35.0-46.0); HEMO FLAGS DIFF FINAL; LYMPH % 14.8 % (9.0-44.0); MEAN CELL VOLUME 94.1 FL (80.0-100.0); MEAN CORPUSCULAR HEMOGLOBIN 30.3 PG (27.0-34.0); MEAN CORPUSCULAR HGB CONC 32.2 % (32.0-36.0); MONO % 11.4 % (0.0-8.0); NEUT % 72.7 % (16.0-70.0); PLATELET COUNT 222 TH/MM3 (150-450); RED BLOOD COUNT 3.23 MIL/MM3 (4.00-5.30); RED CELL DISTRIBUTION WIDTH 14.8 % (11.6-17.2); WHITE BLOOD COUNT 13.7 TH/MM3 (4.0-11.0)
[2017-05-16 07:52] LABS: ALKALINE PHOSPHATASE 89 U/L (45-117); ALT (GPT) 54 U/L (10-53); ANION GAP 8 MEQ/L (5-15); AST (GOT) 46 U/L (15-37); BICARBONATE 25.5 MEQ/L (21.0-32.0); BLOOD UREA NITROGEN 22 MG/DL (7-18); CHLORIDE 125 MEQ/L (98-107); GLOMERULAR FILTRATION RATE 46 ML/MIN (>89); MAGNESIUM 2.3 MG/DL (1.5-2.5); POTASSIUM 3.4 MEQ/L (3.5-5.1); TOTAL BILIRUBIN ADULT 0.3 MG/DL (0.2-1.0)
[2017-05-16 08:09] LABS: SODIUM (NA) 158 MEQ/L (136-145)
[2017-05-16] MEDS: SODIUM CHLORIDE 0.9% FLUSH 10 ML FLUSH IV FLUSH SCH ×2 (09:00→20:18)
--- NOTE | 2017-05-16 09:04 | HHI.PR ---
Review/Management Diagnosis/Plan: (1) Anoxic encephalopathy ICD Codes: G93.1 - Anoxic brain damage, not elsewhere classified Status: Acute Plan: impaired cortical function +brainstem reflexes recs f/u mri brain if feasible in MODS prognosis guarded for meaningful neuro recovery (2) PEA (Pulseless electrical activity) ICD Codes: I46.9 - Cardiac arrest, cause unspecified Status: Acute (3) Acute respiratory failure with hypercapnia ICD Codes: J96.02 - Acute respiratory failure with hypercapnia Status: Acute (4) Chronic systolic heart failure ICD Codes: I50.22 - Chronic systolic (congestive) heart failure Status: Chronic Subjective Subjective Comments No acute events reported Active Medications Current Medications Medications (Trade) Dose Ordered Sig/Scarlett Route Start Time Stop Time Status Last Admin (Brethine Inj) 1 mg UNSCH PRN SQ 05/06/17 22:45 (Tylenol) 650 mg Q6H PRN PO 05/06/17 23:30 05/16/17 03:15 (Zofran Inj) 4 mg Q6H PRN IV PUSH 05/06/17 23:30 (Albuterol Neb) 2.5 mg Q2HR NEB PRN INH 05/06/17 23:30 Miscellaneous Information 1 Q361D XX 05/06/17 23:30 (Chlorhexidine 2% Cloth) Taper DAILY@04 TOP 05/07/17 04:00 05/03/18 03:59 05/13/17 03:36 (Chlorhexidine 2% Cloth) 3 pack UNSCH PRN TOP 05/06/17 23:30 (Aggie-Colace) 1 tab BID PO 05/07/17 09:00 05/15/17 09:50 (Milk Of Magnesia Liq) 30 ml Q12H PRN PO 05/06/17 23:30 (Senokot) 17.2 mg Q12H PRN PO 05/06/17 23:30 (Dulcolax Supp) 10 mg DAILY PRN RECTAL 05/06/17 23:30 (Peridex 0.12% Liq) 15 ml BID@08,20 MT 05/07/17 08:00 05/15/17 20:19 (Pepcid Inj) 10 mg Q12H IV PUSH 05/07/17 06:00 05/16/17 05:05 (Lacrilube Opht Oint) 1 applic Q4H PRN EACH EYE 05/07/17 04:30 05/13/17 09:30 (NS Flush) 2 ml BID IV FLUSH 05/07/17 09:00 05/15/17 09:50 (NS Flush) 2 ml UNSCH PRN IV FLUSH 05/07/17 04:30 Miscellaneous Information 0 ml @ 0 mls/hr UNSCH IV 05/07/17 04:30 (Heparin Inj) 5,000 units Q12H SQ 05/07/17 05:00 05/16/17 05:05 Valproate Sodium 500 mg/Sodium Chloride 105 ml @ 105 mls/hr Q24H IV 05/07/17 09:00 Future Hold 05/07/17 08:50 (Lacrilube Opht Oint) 1 applic Q12HR EACH EYE 05/07/17 09:00 05/15/17 20:17 (Ecotrin Ec) 81 mg DAILY PO 05/08/17 09:00 05/12/17 09:10 Piperacillin Sod/ Tazobactam Sod 50 ml @ 100 mls/hr Q6H IV 05/07/17 09:00 05/16/17 02:36 (Lactulose Liq) 30 ml DAILY OG-TUBE 05/07/17 09:00 05/15/17 09:50 (D50w (Vial) Inj) 50 ml UNSCH PRN IV PUSH 05/08/17 00:30 (Glucagon Inj) 1 mg UNSCH PRN OTHER 05/08/17 00:30 (NovoLOG SUPPLEMENTAL SCALE) 1 Q4H SQ 05/08/17 00:30 05/16/17 04:30 Levetriacetam 100 ml @ 400 mls/hr Q12HR IV 05/10/17 02:15 05/15/17 20:51 (Trandate Inj) 20 mg Q4H PRN IV 05/10/17 10:15 Pharmacy Profile Note 0 ml @ 0 mls/hr UNSCH OTHER 05/10/17 10:30 Diltiazem HCl 125 mg/Sodium Chloride 125 ml @ 5 mls/hr TITRATE PRN IV 05/10/17 12:00 05/16/17 03:58 (Depakote Er) 500 mg DAILY PO 05/10/17 12:00 05/12/17 09:10 (Apresoline Inj) 20 mg Q4H PRN IV PUSH 05/13/17 11:15 (Duoneb Neb) 1 ampule Q6HR NEB INH 05/14/17 10:00 05/16/17 08:16 (Coreg) 12.5 mg BID PO 05/14/17 21:00 05/15/17 20:15 (Norvasc) 10 mg DAILY PO 05/14/17 09:15 05/15/17 09:50 Vancomycin HCl 1500 mg/Sodium Chloride 515 ml @ 257.5 mls/ hr Q24H IV 05/15/17 12:00 05/15/17 13:11 Miscellaneous Information SPECIFIC LAB TO BE ESMER... ONCE ONCE .XX 05/18/17 11:45 05/18/17 11:46 Sodium Chloride 1,000 ml @ 100 mls/hr Q10H IV 05/15/17 13:00 05/16/17 05:06 Allergies Allergies Coded Allergies No Known Allergies ([id number]) Review of Systems All other ROS: Unable to obtain Exam I&O / VS Vital Signs Date Time Temp Pulse Resp B/P (MAP) Pulse Ox O2 Delivery O2 Flow Rate FiO2 05/16/17 08:19 100 35 05/16/17 06:00 91 05/16/17 04:47 100 35 05/16/17 04:15 16 05/16/17 04:00 101.5 88 16 155/69 (97) 100 05/16/17 04:00 35 05/16/17 04:00 88 05/16/17 03:58 88 156/67 05/16/17 02:00 96 05/16/17 00:34 100 35 05/16/17 00:00 100.9 93 17 153/69 (97) 100 05/16/17 00:00 93 05/16/17 00:00 35 05/15/17 22:00 85 05/15/17 21:22 100 35 05/15/17 20:00 101.5 90 16 126/67 (86) 100 Arterial Line 05/15/17 20:00 35 05/15/17 20:00 90 05/15/17 18:00 107 05/15/17 16:45 100 35 05/15/17 16:00 96 05/15/17 16:00 35 05/15/17 16:00 102.2 96 17 138/61 (86) 100 133/64 (87) 05/15/17 14:24 91 130/62 05/15/17 14:00 87 05/15/17 13:49 100 35 05/15/17 12:00 101.3 81 16 111/58 (75) 100 05/15/17 12:00 81 05/15/17 12:00 35 05/15/17 10:58 98 35 05/15/17 10:00 114 05/15/17 09:13 97 35 Exam Comments intubated, ou 2.5-2mm reactive rt>lft, mild corneal, +blinking independently but no blink to threat, no grimace, no motor activity Objective Micro and Labs Laboratory Tests Test 05/15/17 19:51 05/16/17 06:53 White Blood Count 12.1 13.7 Red Blood Count 3.27 3.23 Hemoglobin 9.7 9.8 Hematocrit 30.3 30.4 Mean Corpuscular Volume 92.7 94.1 Mean Corpuscular Hemoglobin 29.5 30.3 Mean Corpuscular Hemoglobin Concent 31.8 32.2 Red Cell Distribution Width 14.7 14.8 Platelet Count 224 222 Mean Platelet Volume 9.3 9.8 Neutrophils (%) (Auto) 68.1 72.7 Lymphocytes (%) (Auto) 15.8 14.8 Monocytes (%) (Auto) 14.3 11.4 Eosinophils (%) (Auto) 0.4 0.4 Basophils (%) (Auto) 1.4 0.7 Neutrophils # (Auto) 8.2 9.9 Lymphocytes # (Auto) 1.9 2.0 Monocytes # (Auto) 1.7 1.6 Eosinophils # (Auto) 0.0 0.1 Basophils # (Auto) 0.2 0.1 CBC Comment DIFF FINAL DIFF FINAL Differential Comment Sodium Level 158 158 Blood Urea Nitrogen 22 Creatinine 1.43 Random Glucose 275 Total Protein 6.7 Albumin 2.0 Calcium Level 8.3 Magnesium Level 2.3 Alkaline Phosphatase 89 Aspartate Amino Transf (AST/SGOT) 46 Alanine Aminotransferase (ALT/SGPT) 54 Total Bilirubin 0.3 Potassium Level 3.4 Chloride Level 125 Carbon Dioxide Level 25.5 Anion Gap 8 Estimat Glomerular Filtration Rate 46 Date/Time Source Procedure Growth Status 05/14/17 11:30 Blood Peripheral Aerobic Blood Culture - Preliminary NO GROWTH IN 1 DAY Resulted 05/14/17 11:30 Blood Peripheral Anaerobic Blood Culture - Preliminary NO GROWTH IN 1 DAY Resulted 05/15/17 00:30 Sputum Endotracheal Gram Stain - Final Resulted 05/15/17 00:30 Sputum Endotracheal Sputum Culture Pending Resulted 05/14/17 21:45 Urine Catheterized Urine Urine Culture - Final Lucinda Albicans Complete Panfilo Solitario MD May 16, 2017 09:04
[2017-05-16] MEDS: CARVEDILOL 12.5 MG TAB PO SCH ×2 (09:15→20:17)
[2017-05-16] MEDS: DOCUSATE SODIUM 50 MG/SENNA 8.6 MG TAB PO SCH ×2 (09:15→20:17)
[2017-05-16] MEDS: levETIRAcetam 1000 MG INJ 100 ML IV SCH ×2 (09:15→20:17)
[2017-05-16] MEDS: ASPIRIN EC 81 MG TABEC PO SCH (09:15)
[2017-05-16] MEDS: LACTULOSE SYRUP 20 GM/30 ML CUP OG-TUBE SCH (09:15)
[2017-05-16] MEDS: CHLORHEXIDINE 0.12% (ORAL KIT) 15 ML CUP MT SCH ×2 (09:20→20:18)
--- NOTE | 2017-05-16 09:55 | HHI.NPPN ---
Subjective History of Present Illness 56 year old female with cardiomyopathy COPD CAD Anoxic bran injury and develop ARF. Additional Remarks Patient remain on the vent. comatose, now spiking fever. Objective Data Data Vital Signs Date Time Temp Pulse Resp B/P (MAP) Pulse Ox O2 Delivery O2 Flow Rate FiO2 05/16/17 08:19 100 35 05/16/17 06:00 91 05/16/17 04:47 100 35 05/16/17 04:15 16 05/16/17 04:00 101.5 88 16 155/69 (97) 100 05/16/17 04:00 35 05/16/17 04:00 88 05/16/17 03:58 88 156/67 05/16/17 02:00 96 05/16/17 00:34 100 35 05/16/17 00:00 100.9 93 17 153/69 (97) 100 05/16/17 00:00 93 05/16/17 00:00 35 05/15/17 22:00 85 05/15/17 21:22 100 35 05/15/17 20:00 101.5 90 16 126/67 (86) 100 Arterial Line 05/15/17 20:00 35 05/15/17 20:00 90 05/15/17 18:00 107 05/15/17 16:45 100 35 05/15/17 16:00 96 05/15/17 16:00 35 05/15/17 16:00 102.2 96 17 138/61 (86) 100 133/64 (87) 05/15/17 14:24 91 130/62 05/15/17 14:00 87 05/15/17 13:49 100 35 05/15/17 12:00 101.3 81 16 111/58 (75) 100 05/15/17 12:00 81 05/15/17 12:00 35 05/15/17 10:58 98 35 05/15/17 10:00 114 -: 05/16/17 0653 05/16/17 0653 Physical Exam Neck Neck Exam: Neck Supple Pulmonary Resp Exam: Breath Sounds Equal, Rhonchi, Decreased Bases, Poor Inspiratory Effort Cardiology CV Exam: Regular Gastrointestinal/Abdomen GI Exam: Soft, Bowel Sounds Present, Distended Extremeties Extremities Exam: Moderate Edema Neurologic Neuro Exam: Unresponsive Assessment/Plan Problem List: (1) Acute renal failure ICD Codes: N17.9 - Acute kidney failure, unspecified Plan: Patient with acute renal failure cardiomyopathy CHF coronary syndrome ATN Daughter at bedside discussed with her. ARF/CKD stable but she has anoxic brain injury and will be on Ventilator support Her prognosis is poor due to anoxic brain injury Creatinine is improving, Na. increased. 158 Started on 07/28 NS.KCL 20 meq 70/hr water flushes Follow the urine out put and BMP. (2) Cardiopulmonary arrest ICD Codes: I46.9 - Cardiac arrest, cause unspecified Status: Acute Plan: Critical care following (3) Cardiogenic shock ICD Codes: R57.0 - Cardiogenic shock Status: Acute Plan: Cardiomyopathy (4) Anoxic encephalopathy ICD Codes: G93.1 - Anoxic brain damage, not elsewhere classified Status: Acute Plan: Brain injury with no recovery (5) Cardiomyopathy ICD Codes: I42.9 - Cardiomyopathy Status: Acute Plan: EF of 20% Problem Qualifiers (1) Acute renal failure: Qualified Codes: N17.0 - Acute kidney failure with tubular necrosis Apollo Hughes MD May 16, 2017 09:55
[2017-05-16] MEDS: FREE WATER G-TUBE SCH ×3 (10:00→20:17)
[2017-05-16] MEDS: ARTIFICIAL TEARS OPTH OINT 3.5 APPLIC/3.5 GM TUBO EACH EYE SCH ×2 (10:16→20:17)
[2017-05-16] MEDS: VALPROIC ACID SYRUP 250 MG/5 ML UDC NG SCH ×2 (10:58→20:16)
[2017-05-16] MEDS: VANCOMYCIN 1,500 MG/NS 500 ML IV SCH ×2 (12:02)
[2017-05-16] MEDS: POTASSIUM CHLORIDE INJ 20 MEQ, SODIUM CHLORIDE 23.4% INJ 38.5 MEQ in WATER STERILE FOR ... IV SCH (12:02)
--- NOTE | 2017-05-16 14:07 | PD.CARD.PN ---
Subjective Subjective Remarks intubated, unresponsive off sedation Objective Medications Current Medications Medications (Trade) Dose Ordered Sig/Scarlett Route Start Time Stop Time Status Last Admin (Brethine Inj) 1 mg UNSCH PRN SQ 05/06/17 22:45 (Tylenol) 650 mg Q6H PRN PO 05/06/17 23:30 05/16/17 03:15 (Zofran Inj) 4 mg Q6H PRN IV PUSH 05/06/17 23:30 (Albuterol Neb) 2.5 mg Q2HR NEB PRN INH 05/06/17 23:30 Miscellaneous Information 1 Q361D XX 05/06/17 23:30 (Chlorhexidine 2% Cloth) Taper DAILY@04 TOP 05/07/17 04:00 05/03/18 03:59 05/13/17 03:36 (Chlorhexidine 2% Cloth) 3 pack UNSCH PRN TOP 05/06/17 23:30 (Aggie-Colace) 1 tab BID PO 05/07/17 09:00 05/16/17 09:15 (Milk Of Magnesia Liq) 30 ml Q12H PRN PO 05/06/17 23:30 (Senokot) 17.2 mg Q12H PRN PO 05/06/17 23:30 (Dulcolax Supp) 10 mg DAILY PRN RECTAL 05/06/17 23:30 (Peridex 0.12% Liq) 15 ml BID@08,20 MT 05/07/17 08:00 05/16/17 09:20 (Pepcid Inj) 10 mg Q12H IV PUSH 05/07/17 06:00 05/16/17 05:05 (Lacrilube Opht Oint) 1 applic Q4H PRN EACH EYE 05/07/17 04:30 05/13/17 09:30 (NS Flush) 2 ml BID IV FLUSH 05/07/17 09:00 05/15/17 09:50 (NS Flush) 2 ml UNSCH PRN IV FLUSH 05/07/17 04:30 Miscellaneous Information 0 ml @ 0 mls/hr UNSCH IV 05/07/17 04:30 (Heparin Inj) 5,000 units Q12H SQ 05/07/17 05:00 05/16/17 05:05 (Lacrilube Opht Oint) 1 applic Q12HR EACH EYE 05/07/17 09:00 05/16/17 10:16 (Ecotrin Ec) 81 mg DAILY PO 05/08/17 09:00 05/16/17 09:15 Piperacillin Sod/ Tazobactam Sod 50 ml @ 100 mls/hr Q6H IV 05/07/17 09:00 05/16/17 13:55 (Lactulose Liq) 30 ml DAILY OG-TUBE 05/07/17 09:00 05/16/17 09:15 (D50w (Vial) Inj) 50 ml UNSCH PRN IV PUSH 05/08/17 00:30 (Glucagon Inj) 1 mg UNSCH PRN OTHER 05/08/17 00:30 (NovoLOG SUPPLEMENTAL SCALE) 1 Q4H SQ 05/08/17 00:30 05/16/17 12:30 Levetriacetam 100 ml @ 400 mls/hr Q12HR IV 05/10/17 02:15 05/16/17 09:15 (Trandate Inj) 20 mg Q4H PRN IV 05/10/17 10:15 Pharmacy Profile Note 0 ml @ 0 mls/hr UNSCH OTHER 05/10/17 10:30 Diltiazem HCl 125 mg/Sodium Chloride 125 ml @ 5 mls/hr TITRATE PRN IV 05/10/17 12:00 05/16/17 03:58 (Apresoline Inj) 20 mg Q4H PRN IV PUSH 05/13/17 11:15 (Duoneb Neb) 1 ampule Q6HR NEB INH 05/14/17 10:00 05/16/17 08:16 (Coreg) 12.5 mg BID PO 05/14/17 21:00 05/16/17 09:15 (Norvasc) 10 mg DAILY PO 05/14/17 09:15 05/16/17 09:15 Vancomycin HCl 1500 mg/Sodium Chloride 515 ml @ 257.5 mls/ hr Q24H IV 05/15/17 12:00 05/16/17 12:02 Miscellaneous Information SPECIFIC LAB TO BE ESMER... ONCE ONCE .XX 05/18/17 11:45 05/18/17 11:46 Potassium Chloride 20 meq/ Sodium Chloride 38.5 meq/Sterile Water 1,019.625 ml @ 70 mls/hr [id number] IV 05/16/17 11:00 05/16/17 12:02 (Free Water) 300 ml Q8HR G-TUBE 05/16/17 10:00 05/16/17 10:00 (Depakene Liq) 250 mg BID NG 05/16/17 11:00 05/16/17 10:58 Vital Signs / I&O Vital Signs Date Time Temp Pulse Resp B/P (MAP) Pulse Ox O2 Delivery O2 Flow Rate FiO2 05/16/17 12:32 98 35 05/16/17 10:30 89 16 135/63 (87) 97 05/16/17 10:00 93 21 142/67 (92) 98 05/16/17 09:30 109 20 166/73 (104) 98 05/16/17 09:00 100 16 147/65 (92) 97 05/16/17 08:30 99 16 151/69 (96) 97 05/16/17 08:19 100 35 05/16/17 08:00 35 05/16/17 08:00 90 16 146/98 (114) 98 05/16/17 06:00 91 05/16/17 04:47 100 35 05/16/17 04:15 16 05/16/17 04:00 101.5 88 16 155/69 (97) 100 05/16/17 04:00 35 05/16/17 04:00 88 05/16/17 03:58 88 156/67 05/16/17 02:00 96 05/16/17 00:34 100 35 05/16/17 00:00 100.9 93 17 153/69 (97) 100 05/16/17 00:00 93 05/16/17 00:00 35 05/15/17 22:00 85 05/15/17 21:22 100 35 05/15/17 20:00 101.5 90 16 126/67 (86) 100 Arterial Line 05/15/17 20:00 35 05/15/17 20:00 90 05/15/17 18:00 107 05/15/17 16:45 100 35 05/15/17 16:00 96 05/15/17 16:00 35 05/15/17 16:00 102.2 96 17 138/61 (86) 100 133/64 (87) 05/15/17 14:24 91 130/62 I/O 05/15/17 05/15/17 05/15/17 05/16/17 05/16/17 05/16/17 07:00 15:00 23:00 07:00 15:00 23:00 Intake Total 563 ml 632 ml 1650 ml 471 ml Output Total 850 ml 1100 ml 1000 ml Balance -287 ml -468 ml 650 ml 471 ml Intake IV Total 189 ml 150 ml 1162 ml 471 ml Tube Feeding 314 ml 482 ml 428 ml Other 60 ml 60 ml Output Urine Total 850 ml 1100 ml 1000 ml # Bowel Movements 2 1 2 Physical Exam GENERAL: SKIN: Warm and dry. HEAD: Normocephalic. EYES: No scleral icterus. No injection or drainage. NECK: Supple, trachea midline. No JVD or lymphadenopathy. CARDIOVASCULAR: Regular rate and rhythm without murmurs, gallops, or rubs. RESPIRATORY: Breath sounds equal bilaterally. No accessory muscle use. GASTROINTESTINAL: Abdomen soft, non-tender, nondistended. MUSCULOSKELETAL: No cyanosis, or edema. BACK: Nontender without obvious deformity. No CVA tenderness. Laboratory Laboratory Tests Test 05/15/17 19:51 05/16/17 06:53 White Blood Count 12.1 TH/MM3 13.7 TH/MM3 Red Blood Count 3.27 MIL/MM3 3.23 MIL/MM3 Hemoglobin 9.7 GM/DL 9.8 GM/DL Hematocrit 30.3 % 30.4 % Mean Corpuscular Volume 92.7 FL 94.1 FL Mean Corpuscular Hemoglobin 29.5 PG 30.3 PG Mean Corpuscular Hemoglobin Concent 31.8 % 32.2 % Red Cell Distribution Width 14.7 % 14.8 % Platelet Count 224 TH/MM3 222 TH/MM3 Mean Platelet Volume 9.3 FL 9.8 FL Neutrophils (%) (Auto) 68.1 % 72.7 % Lymphocytes (%) (Auto) 15.8 % 14.8 % Monocytes (%) (Auto) 14.3 % 11.4 % Eosinophils (%) (Auto) 0.4 % 0.4 % Basophils (%) (Auto) 1.4 % 0.7 % Neutrophils # (Auto) 8.2 TH/MM3 9.9 TH/MM3 Lymphocytes # (Auto) 1.9 TH/MM3 2.0 TH/MM3 Monocytes # (Auto) 1.7 TH/MM3 1.6 TH/MM3 Eosinophils # (Auto) 0.0 TH/MM3 0.1 TH/MM3 Basophils # (Auto) 0.2 TH/MM3 0.1 TH/MM3 CBC Comment DIFF FINAL DIFF FINAL Differential Comment Sodium Level 158 MEQ/L 158 MEQ/L Blood Urea Nitrogen 22 MG/DL Creatinine 1.43 MG/DL Random Glucose 275 MG/DL Total Protein 6.7 GM/DL Albumin 2.0 GM/DL Calcium Level 8.3 MG/DL Magnesium Level 2.3 MG/DL Alkaline Phosphatase 89 U/L Aspartate Amino Transf (AST/SGOT) 46 U/L Alanine Aminotransferase (ALT/SGPT) 54 U/L Total Bilirubin 0.3 MG/DL Potassium Level 3.4 MEQ/L Chloride Level 125 MEQ/L Carbon Dioxide Level 25.5 MEQ/L Anion Gap 8 MEQ/L Estimat Glomerular Filtration Rate 46 ML/MIN Imaging Last 24 hours Impressions Chest X-Ray 05/16/17 0600 Signed Impressions: Service Date/Time: Tuesday, May 16, 2017 04:55 - CONCLUSION: Persistent left lower lobe density. Cardiomegaly. Yasir Calvert MD Assessment and Plan Problem List: (1) CAD (coronary artery disease) ICD Codes: I25.10 - Atherosclerotic heart disease of [place] coronary artery without angina pectoris (2) CHRONIC OBSTRUCTIVE PULMON DISEASE W ACUTE LOWER RESP INFCT ICD Codes: J44.0 - CHRONIC OBSTRUCTIVE PULMON DISEASE W ACUTE LOWER RESP INFCT Status: Acute (3) Cardiomyopathy ICD Codes: I42.9 - Cardiomyopathy Status: Acute (4) Cardiopulmonary arrest ICD Codes: I46.9 - Cardiac arrest, cause unspecified Status: Acute (5) Diabetes mellitus ICD Codes: E11.9 - Type 2 diabetes mellitus without complications Status: Acute Assessment and Plan 1.) Cardiomyopathy - euvolemic, obie and beta navya held due to recent cardiogenic shock and uncertain neurologic status 2.) CAD - continue aspirin, statin held due to shock liver and elevated lfts Aguila Early MD May 16, 2017 14:07
--- NOTE | 2017-05-16 14:15 | HHI.HCPN ---
Reason for visit a. To assist with evaluation and management of symptoms including: Encephalopathy. b. To assist medical decision maker(s) with: better understanding of current medical conditions; weighing benefits/burdens of medical treatment options; making medical treatment decisions. . (Isadora Zhao) Subjective/Interval History Patient seen and examined in ICU. No family at bedside. Nurse reports daughter has returned to [place]. The patient remains unresponsive off sedation. Opens eyes, does not track or blink to threat. Slight withdraw to painful stimuli left upper extremity only, otherwise no response to pain. Remains on mech vent, FiO2 35%, PEEP 5. Tmax 101.5. Heart rate 90-100s, PVCs on telemetry. WBC 13.7, hemoglobin 9.8, hematocrit 30.4, platelets 222. Sodium 158 , potassium 3.4, BUN 22, creatinine 1.43. Total bilirubin 0.3, AST 46, ALT 54, improving. Albumin 2.0. 05/14/17 urine culture positive raven albicans. sputum culture pending. Chest x-ray with persistent left lower lobe density, cardiomegaly. Tolerating tube feeding via OG. . Family/friend interactions Spoke with daughterCheyanne via telephone to provide medical update. She reports she was here visiting over the weekend and is boarding at the train to return home/ [place]. Medical update provided. Reviewed no evidence of neurologic improvement, plan for repeat MRI. Reviewed improving renal and liver function. Explained pending decision regarding tracheostomy/PEG tube placement. Daughter does not have time to discuss further (as she is boarding a train) and requests that I call her and 05/17/17 before 4 PM to further clarify treatment goals. . (Isadora Zhao) Advance Directives Living Will: Never completed Health Care Surrogate: Never completed Durable Power of Web Content Specialist: Never completed (Isadora Zhao) Advance Directive Specifics Health Care Surrogate(s): No written advanced directives. The patient is unmarried and has just one child , daughter Jitendra who lives in [place]. Patient is not capacitated and very unlikely to regain capacity for decision-making, According to [place] Statutes, health care proxy decision making falls to [place]. . Significant change in goals: Code Status: Intubation Only. Will call daughter 05/17/17 to further clarify goals, unable to talk 05/16 as she was traveling to [place]. . (Isadora Zhao) Objective Vital Signs Date Time Temp Pulse Resp B/P (MAP) Pulse Ox O2 Delivery O2 Flow Rate FiO2 05/16/17 12:32 98 35 05/16/17 10:30 89 16 135/63 (87) 97 05/16/17 10:00 93 21 142/67 (92) 98 05/16/17 09:30 109 20 166/73 (104) 98 05/16/17 09:00 100 16 147/65 (92) 97 05/16/17 08:30 99 16 151/69 (96) 97 05/16/17 08:19 100 35 05/16/17 08:00 35 05/16/17 08:00 90 16 146/98 (114) 98 05/16/17 06:00 91 05/16/17 04:47 100 35 05/16/17 04:15 16 05/16/17 04:00 101.5 88 16 155/69 (97) 100 05/16/17 04:00 35 05/16/17 04:00 88 05/16/17 03:58 88 156/67 05/16/17 02:00 96 05/16/17 00:34 100 35 05/16/17 00:00 100.9 93 17 153/69 (97) 100 05/16/17 00:00 93 05/16/17 00:00 35 05/15/17 22:00 85 05/15/17 21:22 100 35 05/15/17 20:00 101.5 90 16 126/67 (86) 100 Arterial Line 05/15/17 20:00 35 05/15/17 20:00 90 05/15/17 18:00 107 05/15/17 16:45 100 35 05/15/17 16:00 96 05/15/17 16:00 35 05/15/17 16:00 102.2 96 17 138/61 (86) 100 133/64 (87) 05/15/17 14:24 91 130/62 05/15/17 14:00 87 Intake & Output 05/16/17 05/16/17 07:00 19:00 Intake Total 1800 ml 471 ml Output Total 1000 ml Balance 800 ml 471 ml Intake IV Total 1312 ml 471 ml Tube Feeding 428 ml Other 60 ml Output Urine Total 1000 ml # Bowel Movements 2 Physical Exam CONSTITUTIONAL/GENERAL: This is an adequately nourished patient, on mech vent off all sedation. EYES: Pupils equal and round, questionable reaction to light. Febrile. NECK: Trachea midline. CARDIOVASCULAR: Regular rate and rhythm without murmurs, gallops, or rubs. . RESPIRATORY/CHEST: Symmetric, unlabored respirations on the ventilator. Scattered rhonchi bilaterally. Thick oral secretions noted. GASTROINTESTINAL: Abdomen soft, nondistended, obese. Bowel sounds present. MUSCULOSKELETAL: Extremities edema. No mottling or clubbing. NEUROLOGICAL: Unresponsive to my voice or exam. Does not track or blink to threat. Slight withdraw to pain on LUE, no response other extremities. PSYCHIATRIC: Unresponsive. . (Isadora Zhao) Diagnostic Tests Laboratory Laboratory Tests Test 05/14/17 11:30 05/15/17 04:30 05/15/17 19:51 05/16/17 06:53 White Blood Count 10.4 TH/MM3 (4.0-11.0) 12.1 TH/MM3 (4.0-11.0) 13.7 TH/MM3 (4.0-11.0) Red Blood Count 3.33 MIL/MM3 (4.00-5.30) 3.27 MIL/MM3 (4.00-5.30) 3.23 MIL/MM3 (4.00-5.30) Hemoglobin 10.1 GM/DL (11.6-15.3) 9.7 GM/DL (11.6-15.3) 9.8 GM/DL (11.6-15.3) Hematocrit 31.0 % (35.0-46.0) 30.3 % (35.0-46.0) 30.4 % (35.0-46.0) Mean Corpuscular Volume 93.0 FL (80.0-100.0) 92.7 FL (80.0-100.0) 94.1 FL (80.0-100.0) Mean Corpuscular Hemoglobin 30.3 PG (27.0-34.0) 29.5 PG (27.0-34.0) 30.3 PG (27.0-34.0) Mean Corpuscular Hemoglobin Concent 32.6 % (32.0-36.0) 31.8 % (32.0-36.0) 32.2 % (32.0-36.0) Red Cell Distribution Width 14.4 % (11.6-17.2) 14.7 % (11.6-17.2) 14.8 % (11.6-17.2) Platelet Count 200 TH/MM3 (150-450) 224 TH/MM3 (150-450) 222 TH/MM3 (150-450) Mean Platelet Volume 9.0 FL (7.0-11.0) 9.3 FL (7.0-11.0) 9.8 FL (7.0-11.0) Neutrophils (%) (Auto) 69.3 % (16.0-70.0) 68.1 % (16.0-70.0) 72.7 % (16.0-70.0) Lymphocytes (%) (Auto) 11.6 % (9.0-44.0) 15.8 % (9.0-44.0) 14.8 % (9.0-44.0) Monocytes (%) (Auto) 18.5 % (0.0-8.0) 14.3 % (0.0-8.0) 11.4 % (0.0-8.0) Eosinophils (%) (Auto) 0.1 % (0.0-4.0) 0.4 % (0.0-4.0) 0.4 % (0.0-4.0) Basophils (%) (Auto) 0.5 % (0.0-2.0) 1.4 % (0.0-2.0) 0.7 % (0.0-2.0) Neutrophils # (Auto) 7.2 TH/MM3 (1.8-7.7) 8.2 TH/MM3 (1.8-7.7) 9.9 TH/MM3 (1.8-7.7) Lymphocytes # (Auto) 1.2 TH/MM3 (1.0-4.8) 1.9 TH/MM3 (1.0-4.8) 2.0 TH/MM3 (1.0-4.8) Monocytes # (Auto) 1.9 TH/MM3 (0-0.9) 1.7 TH/MM3 (0-0.9) 1.6 TH/MM3 (0-0.9) Eosinophils # (Auto) 0.0 TH/MM3 (0-0.4) 0.0 TH/MM3 (0-0.4) 0.1 TH/MM3 (0-0.4) Basophils # (Auto) 0.0 TH/MM3 (0-0.2) 0.2 TH/MM3 (0-0.2) 0.1 TH/MM3 (0-0.2) CBC Comment DIFF FINAL DIFF FINAL DIFF FINAL Differential Comment Blood Urea Nitrogen 28 MG/DL (7-18) 22 MG/DL (7-18) Creatinine 1.62 MG/DL (0.50-1.00) 1.43 MG/DL (0.50-1.00) Random Glucose 218 MG/DL (74-106) 275 MG/DL (74-106) Total Protein 6.8 GM/DL (6.4-8.2) 6.7 GM/DL (6.4-8.2) Albumin 2.0 GM/DL (3.4-5.0) 2.0 GM/DL (3.4-5.0) Calcium Level 8.7 MG/DL (8.5-10.1) 8.3 MG/DL (8.5-10.1) Alkaline Phosphatase 96 U/L (45-117) 89 U/L (45-117) Aspartate Amino Transf (AST/SGOT) 99 U/L (15-37) 46 U/L (15-37) Alanine Aminotransferase (ALT/SGPT) 63 U/L (10-53) 54 U/L (10-53) Total Bilirubin 0.5 MG/DL (0.2-1.0) 0.3 MG/DL (0.2-1.0) Sodium Level 154 MEQ/L (136-145) 158 MEQ/L (136-145) 158 MEQ/L (136-145) Potassium Level 4.1 MEQ/L (3.5-5.1) 3.4 MEQ/L (3.5-5.1) Chloride Level 121 MEQ/L (98-107) 125 MEQ/L (98-107) Carbon Dioxide Level 23.6 MEQ/L (21.0-32.0) 25.5 MEQ/L (21.0-32.0) Anion Gap 9 MEQ/L (5-15) 8 MEQ/L (5-15) Estimat Glomerular Filtration Rate 40 ML/MIN (>89) 46 ML/MIN (>89) Random Vancomycin Level 6.6 COMMENT Magnesium Level 2.3 MG/DL (1.5-2.5) (Isadora Zhao) Result Diagram: 05/16/17 0653 05/16/17652 Microbiology Microbiology Date/Time Source Procedure Growth Status 05/14/17 11:30 Blood Peripheral Aerobic Blood Culture - Preliminary NO GROWTH IN 2 DAYS Resulted 05/14/17 11:30 Blood Peripheral Anaerobic Blood Culture - Preliminary NO GROWTH IN 2 DAYS Resulted 05/14/17 11:30 Blood Peripheral Aerobic Blood Culture - Preliminary NO GROWTH IN 2 DAYS Resulted 05/14/17 11:30 Blood Peripheral Anaerobic Blood Culture - Preliminary NO GROWTH IN 2 DAYS Resulted 05/15/17 00:30 Sputum Endotracheal Gram Stain - Final Resulted 05/15/17 00:30 Sputum Endotracheal Sputum Culture Pending Resulted 05/14/17 21:45 Urine Catheterized Urine Urine Culture - Final Raven Albicans Complete Imaging Last Impressions Chest X-Ray 05/16/17 0600 Signed Impressions: Service Date/Time: Tuesday, May 16, 2017 04:55 - CONCLUSION: Persistent left lower lobe density. Cardiomegaly. Yasir Calvert MD Abdomen Ultrasound 05/07/17 0000 Signed Impressions: Service Date/Time: Sunday, May 07, 2017 14:19 - CONCLUSION: 1. Echogenic liver compatible with fatty infiltration or hepatocellular disease. 2. Cholecystectomy Laith Coe MD Head CT 05/06/172123 Signed Impressions: Service Date/Time: Sunday, May 07, 2017 03:14 - CONCLUSION: Normal examination. Noé Ybarra MD CT Angiography 05/06/17 0000 Signed Impressions: Service Date/Time: Sunday, May 07, 2017 03:21 - CONCLUSION: 1. No pulmonary embolus. 2. Bibasilar areas of consolidation or atelectasis being worse on the left. There are minimal bilateral pleural effusions. Noé Ybarra MD Procedures Bilateral femoral arterial lines and left femoral heat exchange catheter . (Isadora Zhao) Assessment and Plan Disease Oriented Problem List: (1) anoxic brain injury, severe encephalopathy (2) PEA cardiac arrest 05/06/17 (3) respiratory failure s/p cardiac arrest and resuscitation (4) transaminitis, likely due to hypoxic insult (5) history of CHF, ejection fraction 15-20% in 2014 (6) acute kidney injury (7) coronary artery disease, moderate disease on cath in 2014 (8) insulin-dependent diabetes (9) COPD, moderate (10) history of seizure disorder (11) unspecified but significant psychiatric illness, disabling (12) depression (13) hyperlipidemia (14) hypertension (15) GERD (16) chronic back pain (17) peripheral neuropathy (18) anxiety Symptom Scale: (1) anxiety 0-10 Scale: Unable to quantify (2) dyspnea 0-10 Scale: Unable to quantify (3) encephalopathy 0-10 Scale: Unable to quantify Pertinent Non-Medical Issues Psychosocial: Unmarried, 1 daughter in [place], disabled via psychiatric diagnoses for many years. Was living alone. Spiritual: Unaffiliated jainism Legal: The patient is unmarried and has just one child, katarina Edward in [place]. The patient is very unlikely to regain capacity for decision-making, so Patty Lozano is the proxy decision-maker. Ethical issues impacting care: None. . Important Contacts Patient's daughter/HCP Cheyanne Garcia [phone] . Prognosis The patient's prognosis is extremely poor. She has underlying moderate or severe pulmonary and cardiac disease, and now has an apparent significant anoxic brain injury. . Code Status: Alternative Code (intubation only) Plan * ALTERNATE CODE, intubation only per request of daughter 05/10/17 * DECISION-MAKING: No written advanced directives. The patient is unmarried and has just one child, daughter Jitendra who lives in [place]. Patient is not capacitated and very unlikely to regain capacity for decision-making, According to [place] Statutes, health care proxy decision making falls to Jitendra Garcia. * GOALS: Spoke with daughterJitendra via telephone to provide medical update. She reports she was here visiting over the weekend and is boarding at the train to return home/ [place]. Medical update provided. Reviewed no evidence of neurologic improvement, plan for repeat MRI. Reviewed improving renal and liver function. Explained pending decision regarding tracheostomy/PEG tube placement. Daughter does not have time to discuss further (as she is boarding a train) and requests that I call her on 05/17/17. * Palliative care will call daughter with MRI results and to further clarify treatment goals on 05/17/17 before 4 pm, as she was unable to talk today due to traveling home to [place]. * SYMPTOMS: No evidence of pain, dyspnea, anxiety at this time. No seizures noted. Encephalopathy: due to anoxic brain injury, seizure, no evidence of neurologic recovery. No new medication recommendations at this time. * Palliative Care will continue to follow the patient during this hospitalization. . (Isadora Zhao) Attestation To help prompt me to consider important information that might be impacting today's encounter and assessment, information from prior notes written by myself or my colleagues may have been "brought forward" into today's note. My signature on this note, however, is an attestation that I personally performed the exam, history, and/or decision-making noted today, and, unless otherwise indicated, the interactions with patient, family, and staff as well as the review of records all occurred today. I also attest that the listed assessment and stated plan reflect my best clinical judgment today based on the combination of historical information, prior notes, and today's exam/ interactions. When time spent is documented, it refers only to time spent today by the signer, or if indicated, combined time spent today by collaborating physician/nurse practitioner. (Isadora Zhao) Collaborating MD Comments Chart reviewed. Case discussed with palliative care WHEELAGE CLERK. I have reviewed above palliative care WHEELAGE CLERK note, and I concur. . (Zachariah Marie MD) Isadora Zhao May 16, 2017 14:15 Zachariah Marie MD May 19, 2017 15:54
--- NOTE | 2017-05-16 20:27 | HHI.CCPN ---
Subjective Remarks/Hospital Course 56-year-old female with past medical history of hypertension, chronic systolic heart failure, diabetes, COPD bipolar disorder, seizure disorder who presented to [facility] emergency department via [facility] following cardiac arrest. [facility] was originally called for shortness of breath and when they arrived patient was unresponsive and in PEA. Combitube was placed. CPR was initiated and patient was administered epinephrine 4, 1 amp bicarbonate, Narcan 2 mg prior to arrival via left tibial I/O. Blood glucose was 334. Exact duration of prehospital CPR is unclear. Combitube was removed and she was intubated upon arrival. Patient had ROSC 5 minutes after arrival. She received additional epinephrine 2 in the ED. She also received 1 L normal saline bolus, vancomycin, Zosyn in the ED. Critical care medicine is consulted for admission. EKG has no acute ischemia. SUBJ 05/07: Intubated sedated neuromuscularly paralyzed. Induced hypothermia initiated at 7 AM, 2-D echo shows EF 25-30%, mild to moderate MR. Serial troponins negative 05/08: Remains neuromuscularly paralyzed. Hypothermia will be completed by the known and rewarming was started. Remains off inotropes and pressors 05/09: Hypothermia protocol completed, placed overnight on Versed also in addition to propofol and fentanyl for tachycardia and asynchrony. Currently patient while on sedation do not open eyes with very slight withdrawal to pain 05/10: Developed Afib with RVR yesterday with HR in 200's DC cardioverted at night by Dr. Chu. Placed back on Versed. RN reports paroxysmal A fib. EEG pending at this time for subclinical sz. EEG 05/07 burst suppression pattern. Neuro prognosis poor 05/11: No neuro improvement. Creat worsening, nephrology consulted. EEG severe encephalopathy consistent with anoxic injury. Palliative care is following 05/12: There had been no improvement in neuro status after completion of code cool approximately 4 days ago. Patient has not shown not seen any signs of improvement. Palliative care met with family. Patient is developing multiorgan dysfunction syndrome. Daughter wants withdrawal of life support but wants to wait until some other family members can visit from [place] 05/13: No meaningful recovery yet. Opens eyes partially to pain. Weakly withdraws all extremities to pain. UO 1.8L in 24 hours. Family considering withdrawal of life support today, considering comorbidities and poor neuro recovery after cooling 05/14: Eyes are spontaneously open but with upward gaze. No tracking no response to threat. Withdraws bilateral upper extremity to pain. Had been off sedation more than 4 days 05/15: Neuro exam remains unchanged, even less eye-opening and withdrawal. Fever up to 103.5. Pancultured. Continue on vancomycin and Zosyn until cultures are back. 05/16: no improvements or changes to mental status. persistent encephalopathy. poor prognosis. family wants to wait until other family can be present. palliative care clarifying goals. Objective Vital Signs Date Time Temp Pulse Resp B/P (MAP) Pulse Ox O2 Delivery O2 Flow Rate FiO2 05/16/17 18:00 97 05/16/17 17:00 99 35 05/16/17 16:01 16 134/82 (99) 05/16/17 04:00 101.5 Intake and Output 05/16/17 05/16/17 05/17/17 08:00 16:00 00:00 Intake Total 1650 ml 471 ml 1133 ml Output Total 1000 ml 1300 ml Balance 650 ml 471 ml -167 ml Result Diagram: 05/16/17 0653 05/16/17 0653 Other Results Microbiology Date/Time Source Procedure Growth Status 05/14/17 21:45 Urine Catheterized Urine Urine Culture - Final Lucinda Albicans Complete Objective Remarks GENERAL: Obese female who is intubated, unresponsive SKIN: Warm and dry. HEAD: Atraumatic. Normocephalic. EYES: Bilateral exophthalmus. Pupils equal and round, reactive. Positive corneal ENT: No nasal bleeding or discharge. Orotracheally intubated NECK: Trachea midline. No JVD appreciated. No meningismus CARDIOVASCULAR: Regular rate and rhythm, sinus rhythm on the monitor. RESPIRATORY: full mechanical support. fio2 40%. equal chest rise. GASTROINTESTINAL: Abdomen protuberant soft. No appreciable tenderness rebound or guarding. : Benoit catheter is in place MUSCULOSKELETAL: Extremities without clubbing, cyanosis, or edema. NEUROLOGICAL: Off sedation for more than 5 days. Minimal partial eye opening to pain. Slight withdrawal to pain in all 4 ext upper extremities more than lower A/P Problem List: (1) Cardiac arrest ICD Code: I46.9 - Cardiac arrest, cause unspecified (2) Anoxic-ischemic encephalopathy ICD Code: G93.1 - Anoxic brain damage, not elsewhere classified; I67.82 - Cerebral ischemia (3) Chronic systolic heart failure ICD Code: I50.22 - Chronic systolic (congestive) heart failure Status: Chronic (4) Exophthalmos of both eyes ICD Code: H05.20 - Unspecified exophthalmos Status: Chronic (5) HTN (hypertension) ICD Code: I10 - Essential (primary) hypertension Status: Chronic (6) HLD (hyperlipidemia) ICD Code: E78.5 - Hyperlipidemia, unspecified Status: Chronic (7) Cardiogenic shock ICD Code: R57.0 - Cardiogenic shock Status: Acute (8) Acute respiratory failure with hypercapnia ICD Code: J96.02 - Acute respiratory failure with hypercapnia Status: Acute (9) Obesity (BMI 30-39.9) ICD Code: E66.9 - Obesity, unspecified Status: Chronic (10) CHF (congestive heart failure) ICD Code: I50.9 - CHF (congestive heart failure) Status: Acute (11) Bipolar disorder ICD Code: F31.9 - Bipolar affective disorder Status: Chronic (12) COPD (chronic obstructive pulmonary disease) ICD Code: J44.9 - Chronic obstructive pulmonary disease Status: Chronic (13) Tobacco abuse ICD Code: Z72.0 - Tobacco use Status: Chronic Assessment and Plan Assessment: 56yF s/p cardiac arrest with persistent severe hypoxic/ischemic encephalopathy. poor prognosis. will not have meaningful neurologic recovery. we continue to convey this to the family who are still deciding what their wishes are for ongoing management of the patient. NEURO/PSYCH: Acute anoxic encephalopathy, severe Bipolar disorder Status post completion of induced therapeutic hypothermia. initiated at 0700 , completed 05/08/17. Off sedation more than 5 days No neurologic improvement yet, prognosis poor. Neurology Dr. Solitario. CT brain - negative. Depakote level. 48. Was on Depakote for bipolar. restarted Depakote. Lactulose 30 daily. Ammonia level down to 31. Neg urine drug screen, APAP, ASA level. Carboxyhemoglobin level mildly elevated, may be secondary to tobacco abuse. Resumed Neurontin 100 day. Holding Wellbutrin XL. EEG shows severe encephalopathy, burst suppression pattern. Repeat EEG severe encephalopathy RESP: Acute hypercapnic respiratory failure COPD Tobacco abuse ACV tidal volume 550/rate 16/P5/FiO2 to 35%. Ventilator bundle. DuoNeb q6 hours. Albuterol q2 hours prn. No Wheezing No Vent weaning until mental status improved CV: PEA cardiac arrest Post cardiac arrest syndrome with shock (resolved) Afib with RVR Chronic systolic heart failure with ejection fraction 15-20% (25-30 on echo) Nonobstructive Coronary artery disease Essential Hypertension, uncontrolled Hyperlipidemia Holding Diovan 160 mg due to acute kidney injury. Coreg 12.5 mg twice a day. use IV Hydralazine PRN for SBP >170. Norvasc 10 mg daily DCCV for Afib RVR with HR 200/min. Continue Cardizem for paroxysmal A fib EKG normal sinus rhythm rate of 99. No apparent acute ischemia. Follow-up serial EKGs and cardiac markers-negative. 2-D echo EF 25-30%. Cardiology Dr. Early Etiology of cardiac arrest unclear. Most likely due to hypercapnia and respiratory acidosis Continue aspirin. Holding statin due to elevated LFTs. GI: GERD Transaminitis, probable ischemic hepatopathy. Orogastric tube. RUQ us-fatty liver, hepatitis panel pending Tube feeds with Glucerna FEN/RENAL: MARQUEZ Lactic acidemia Hyperphosphatemia Benoit in place. Monitor intake and output. Monitor electrolytes and replace as indicated. Hold home NSAID's. Creat improved today Nephrology consult for worsening creatinine. Dr. Hughes following. Nonoliguric renal failure ID: High fever, sepsis UTI Bacteremia with strep viridans, Coag neg staph, pleomorphic GPR Received Zosyn and vancomycin in the emergency department. Continue Zosyn and vancomycin Repeat sputum culture, blood culture and urine culture f/u HEME: No acute hematologic issues. ENDO: Diabetes mellitus with acute hyperglycemia Hold metformin, glipizide, Lantus. SSI Thyroid studies-essentially euthyroid PROPH: Sq heparin for DVT prophylaxis. Famotidine for stress ulcer prophylaxis and history of GERD ACCESS: Right femoral art line placed by ED physician 05/06/17, removed. L femoral heat exchange catheter and L femoral art line placed 05/07/17-remove both today Next of kin is Cheyanne, her only daughter. She is not . Cheyanne lives in [place]. Has been informed of risk of anoxic brain injury and discussed rationale for induced therapeutic hypothermia. Dr. Brandt Discussed with Dr. Morrison ALT CODE. Palliative care following. Prognosis appears very poor. Now with multiorgan failure. Daughter may withdraw active life support once family members from [place] can visit. D/W Dr. Adhikari. No final decision has been made by family Problem Qualifiers (1) HTN (hypertension): Qualified Codes: I10 - Essential (primary) hypertension Luis Manuel Melvin MD May 16, 2017 20:27
[2017-05-17] VITALS (19 sets, daily range): BP systolic 141–204; BP diastolic 64–88; PULSE 81–115; RESP 16–17; TEMP 97.3–100.4; O2SAT 92–99
[2017-05-17] MEDS: INSULIN ASPART SUPPLEMENTAL SCALE SQ SCH ×7 (00:30→23:59)
[2017-05-17] MEDS: POTASSIUM CHLORIDE INJ 20 MEQ, SODIUM CHLORIDE 23.4% INJ 38.5 MEQ in WATER STERILE FOR ... IV SCH ×2 (02:37→17:10)
[2017-05-17] MEDS: PIPERACIL-TAZO 3.375 GM PREMIX 50 ML IV SCH ×4 (02:37→19:37)
[2017-05-17] MEDS: RESP: ALBUTEROL 2.5 MG/IPRATROPIUM 0.5 MG NEB (SCH) INH ×4 (03:35→21:51)
[2017-05-17] MEDS: CHLORHEXIDINE GLUCONATE 2 % 1 PACK (2 CLOTHS) TOP SCH (04:00)
[2017-05-17] MEDS: HEPARIN SODIUM - SQ 10,000 UNITS/ML VIAL SQ SCH ×2 (05:41→17:10)
[2017-05-17] MEDS: FREE WATER G-TUBE SCH ×3 (05:42→19:39)
[2017-05-17] MEDS: FAMOTIDINE 20 MG/2 ML VIAL IV PUSH SCH ×2 (05:42→17:10)
--- NOTE | 2017-05-17 06:29 | HHI.CCPN ---
Subjective Remarks/Hospital Course 56-year-old female with past medical history of hypertension, chronic systolic heart failure, diabetes, COPD bipolar disorder, seizure disorder who presented to [facility] emergency department via [facility] following cardiac arrest. [facility] was originally called for shortness of breath and when they arrived patient was unresponsive and in PEA. Combitube was placed. CPR was initiated and patient was administered epinephrine 4, 1 amp bicarbonate, Narcan 2 mg prior to arrival via left tibial I/O. Blood glucose was 334. Exact duration of prehospital CPR is unclear. Combitube was removed and she was intubated upon arrival. Patient had ROSC 5 minutes after arrival. She received additional epinephrine 2 in the ED. She also received 1 L normal saline bolus, vancomycin, Zosyn in the ED. Critical care medicine is consulted for admission. EKG has no acute ischemia. SUBJ 05/07: Intubated sedated neuromuscularly paralyzed. Induced hypothermia initiated at 7 AM, 2-D echo shows EF 25-30%, mild to moderate MR. Serial troponins negative 05/08: Remains neuromuscularly paralyzed. Hypothermia will be completed by the known and rewarming was started. Remains off inotropes and pressors 05/09: Hypothermia protocol completed, placed overnight on Versed also in addition to propofol and fentanyl for tachycardia and asynchrony. Currently patient while on sedation do not open eyes with very slight withdrawal to pain 05/10: Developed Afib with RVR yesterday with HR in 200's DC cardioverted at night by Dr. Chu. Placed back on Versed. RN reports paroxysmal A fib. EEG pending at this time for subclinical sz. EEG 05/07 burst suppression pattern. Neuro prognosis poor 05/11: No neuro improvement. Creat worsening, nephrology consulted. EEG severe encephalopathy consistent with anoxic injury. Palliative care is following 05/12: There had been no improvement in neuro status after completion of code cool approximately 4 days ago. Patient has not shown not seen any signs of improvement. Palliative care met with family. Patient is developing multiorgan dysfunction syndrome. Daughter wants withdrawal of life support but wants to wait until some other family members can visit from [place] 05/13: No meaningful recovery yet. Opens eyes partially to pain. Weakly withdraws all extremities to pain. UO 1.8L in 24 hours. Family considering withdrawal of life support today, considering comorbidities and poor neuro recovery after cooling 05/14: Eyes are spontaneously open but with upward gaze. No tracking no response to threat. Withdraws bilateral upper extremity to pain. Had been off sedation more than 4 days 05/15: Neuro exam remains unchanged, even less eye-opening and withdrawal. Fever up to 103.5. Pancultured. Continue on vancomycin and Zosyn until cultures are back. 05/16: no improvements or changes to mental status. persistent encephalopathy. poor prognosis. family wants to wait until other family can be present. palliative care clarifying goals. 05/17: no changes to poor mental status. still awaiting family. hypernatremia worsening. nephrology following. Cr improving though; ahsan post-ATN diuresis. Objective Vital Signs Date Time Temp Pulse Resp B/P (MAP) Pulse Ox O2 Delivery O2 Flow Rate FiO2 05/17/17 04:19 98 35 05/17/17 02:00 99 05/17/17 00:00 99.6 16 143/68 (93) Result Diagram: 05/16/17 0653 05/16/17 0653 Other Results Microbiology Date/Time Source Procedure Growth Status 05/14/17 21:45 Urine Catheterized Urine Urine Culture - Final Lucinda Albicans Complete Objective Remarks GENERAL: Obese female who is intubated, unresponsive SKIN: Warm and dry. HEAD: Atraumatic. Normocephalic. EYES: Bilateral exophthalmus. Pupils equal and round, reactive. Positive corneal ENT: No nasal bleeding or discharge. Orotracheally intubated NECK: Trachea midline. No JVD appreciated. No meningismus CARDIOVASCULAR: Regular rate and rhythm, sinus rhythm on the monitor. RESPIRATORY: full mechanical support. fio2 35%. equal chest rise. GASTROINTESTINAL: Abdomen protuberant soft. No appreciable tenderness rebound or guarding. : Benoit catheter is in place MUSCULOSKELETAL: Extremities without clubbing, cyanosis, or edema. NEUROLOGICAL: Off sedation for more than 5 days. Minimal partial eye opening to pain. Slight withdrawal to pain in all 4 ext upper extremities more than lower A/P Problem List: (1) Cardiac arrest ICD Code: I46.9 - Cardiac arrest, cause unspecified (2) Anoxic-ischemic encephalopathy ICD Code: G93.1 - Anoxic brain damage, not elsewhere classified; I67.82 - Cerebral ischemia (3) Chronic systolic heart failure ICD Code: I50.22 - Chronic systolic (congestive) heart failure Status: Chronic (4) Exophthalmos of both eyes ICD Code: H05.20 - Unspecified exophthalmos Status: Chronic (5) HTN (hypertension) ICD Code: I10 - Essential (primary) hypertension Status: Chronic (6) HLD (hyperlipidemia) ICD Code: E78.5 - Hyperlipidemia, unspecified Status: Chronic (7) Cardiogenic shock ICD Code: R57.0 - Cardiogenic shock Status: Acute (8) Acute respiratory failure with hypercapnia ICD Code: J96.02 - Acute respiratory failure with hypercapnia Status: Acute (9) Obesity (BMI 30-39.9) ICD Code: E66.9 - Obesity, unspecified Status: Chronic (10) CHF (congestive heart failure) ICD Code: I50.9 - CHF (congestive heart failure) Status: Acute (11) Bipolar disorder ICD Code: F31.9 - Bipolar affective disorder Status: Chronic (12) COPD (chronic obstructive pulmonary disease) ICD Code: J44.9 - Chronic obstructive pulmonary disease Status: Chronic (13) Tobacco abuse ICD Code: Z72.0 - Tobacco use Status: Chronic Assessment and Plan Assessment: 56yF s/p cardiac arrest with persistent severe hypoxic/ischemic encephalopathy. poor prognosis. will not have meaningful neurologic recovery. we continue to convey this to the family who are still deciding what their wishes are for ongoing management of the patient. NEURO/PSYCH: Acute anoxic encephalopathy, severe Bipolar disorder Status post completion of induced therapeutic hypothermia. initiated at 0700 , completed 05/08/17. Off sedation more than 5 days No neurologic improvement yet, prognosis poor. Neurology Dr. Solitario. CT brain - negative. Depakote level. 48. Was on Depakote for bipolar. restarted Depakote. Lactulose 30 daily. Ammonia level down to 31. Neg urine drug screen, APAP, ASA level. Carboxyhemoglobin level mildly elevated, may be secondary to tobacco abuse. Resumed Neurontin 100 day. Holding Wellbutrin XL. EEG shows severe encephalopathy, burst suppression pattern. Repeat EEG severe encephalopathy RESP: Acute hypercapnic respiratory failure COPD Tobacco abuse ACV tidal volume 550/rate 16/P5/FiO2 to 35%. Ventilator bundle. DuoNeb q6 hours. Albuterol q2 hours prn. No Wheezing No Vent weaning until mental status improved CV: PEA cardiac arrest Post cardiac arrest syndrome with shock (resolved) Afib with RVR Chronic systolic heart failure with ejection fraction 15-20% (25-30 on echo) Nonobstructive Coronary artery disease Essential Hypertension, uncontrolled Hyperlipidemia Holding Diovan 160 mg due to acute kidney injury. Coreg 12.5 mg twice a day. use IV Hydralazine PRN for SBP >170. Norvasc 10 mg daily DCCV for Afib RVR with HR 200/min. Continue Cardizem for paroxysmal A fib EKG normal sinus rhythm rate of 99. No apparent acute ischemia. Follow-up serial EKGs and cardiac markers-negative. 2-D echo EF 25-30%. Cardiology Dr. Early Etiology of cardiac arrest unclear. Most likely due to hypercapnia and respiratory acidosis Continue aspirin. Holding statin due to elevated LFTs. GI: GERD Transaminitis, probable ischemic hepatopathy. Orogastric tube. RUQ us-fatty liver, hepatitis panel pending Tube feeds with Glucerna FEN/RENAL: MARQUEZ Lactic acidemia Hyperphosphatemia Benoit in place. Monitor intake and output. Monitor electrolytes and replace as indicated. Hold home NSAID's. Creat improved today Nephrology consult for worsening creatinine. Dr. Hughes following. Nonoliguric renal failure ID: High fever, sepsis UTI Bacteremia with strep viridans, Coag neg staph, pleomorphic GPR Received Zosyn and vancomycin in the emergency department. Continue Zosyn and vancomycin Repeat sputum culture, blood culture and urine culture f/u HEME: No acute hematologic issues. ENDO: Diabetes mellitus with acute hyperglycemia Hold metformin, glipizide, Lantus. SSI Thyroid studies-essentially euthyroid PROPH: Sq heparin for DVT prophylaxis. Famotidine for stress ulcer prophylaxis and history of GERD ACCESS: Right femoral art line placed by ED physician 05/06/17, removed. L femoral heat exchange catheter and L femoral art line placed 05/07/17-remove both today Next of kin is Cheyanne, her only daughter. She is not . Cheyanne lives in [place]. Has been informed of risk of anoxic brain injury and discussed rationale for induced therapeutic hypothermia. Dr. Brandt Discussed with Dr. Prince SHRESTHA. Palliative care following. Prognosis appears very poor. Now with multiorgan failure. Daughter may withdraw active life support once family members from [place] can visit. D/W Dr. Adhikari. No final decision has been made by family Problem Qualifiers (1) HTN (hypertension): Qualified Codes: I10 - Essential (primary) hypertension Luis Manuel Melvin MD May 17, 2017 06:29
[2017-05-17] MEDS: LACTULOSE SYRUP 20 GM/30 ML CUP OG-TUBE SCH (08:30)
[2017-05-17] MEDS: ASPIRIN EC 81 MG TABEC PO SCH (08:30)
[2017-05-17] MEDS: CARVEDILOL 12.5 MG TAB PO SCH ×2 (08:30→19:37)
[2017-05-17] MEDS: VALPROIC ACID SYRUP 250 MG/5 ML UDC NG SCH ×2 (08:30→19:37)
[2017-05-17] MEDS: DOCUSATE SODIUM 50 MG/SENNA 8.6 MG TAB PO SCH ×2 (08:30→19:39)
[2017-05-17] MEDS: levETIRAcetam 1000 MG INJ 100 ML IV SCH ×2 (08:31→19:38)
[2017-05-17] MEDS: CHLORHEXIDINE 0.12% (ORAL KIT) 15 ML CUP MT SCH ×2 (08:32→19:38)
[2017-05-17] MEDS: ARTIFICIAL TEARS OPTH OINT 3.5 APPLIC/3.5 GM TUBO EACH EYE SCH ×2 (08:32→19:38)
[2017-05-17] MEDS: SODIUM CHLORIDE 0.9% FLUSH 10 ML FLUSH IV FLUSH SCH ×2 (08:35→19:41)
[2017-05-17] MEDS: VANCOMYCIN 1,500 MG/NS 500 ML IV SCH ×2 (11:22)
--- NOTE | 2017-05-17 12:48 | HHI.NPPN ---
Subjective History of Present Illness 56 year old female with cardiomyopathy COPD CAD Anoxic bran injury and develop ARF. Additional Remarks Patient remain on the vent. comatose, now spiking fever. Objective Data Data Vital Signs Date Time Temp Pulse Resp B/P (MAP) Pulse Ox O2 Delivery O2 Flow Rate FiO2 05/17/17 12:29 98 35 05/17/17 09:11 98 35 05/17/17 06:00 104 05/17/17 04:19 98 35 05/17/17 04:00 35 05/17/17 04:00 99.2 101 17 175/74 (107) 98 05/17/17 04:00 99 05/17/17 02:00 99 05/17/17 00:02 98 35 05/17/17 00:00 99.6 96 16 143/68 (93) 97 05/17/17 00:00 92 05/17/17 00:00 35 05/16/17 22:00 90 05/16/17 20:44 106 160/70 05/16/17 20:36 98 35 05/16/17 20:00 35 05/16/17 20:00 91 05/16/17 20:00 99.2 103 16 158/70 (99) 97 05/16/17 18:00 97 05/16/17 17:00 99 35 05/16/17 16:01 95 05/16/17 16:01 95 16 134/82 (99) 100 05/16/17 16:00 95 16 100 05/16/17 16:00 35 05/16/17 16:00 95 05/16/17 15:30 102 17 164/70 (101) 100 05/16/17 15:30 102 05/16/17 15:00 99 05/16/17 15:00 99 18 144/65 (91) 100 05/16/17 14:30 102 05/16/17 14:30 102 21 171/75 (107) 100 05/16/17 14:00 93 16 161/72 (101) 97 05/16/17 14:00 93 05/16/17 13:30 93 05/16/17 13:30 93 17 159/70 (99) 97 05/16/17 13:00 95 05/16/17 13:00 95 16 158/70 (99) 97 -: 05/16/17 0653 05/16/17 0653 Physical Exam Neck Neck Exam: Neck Supple Pulmonary Resp Exam: Breath Sounds Equal, Rhonchi, Decreased Bases, Poor Inspiratory Effort Cardiology CV Exam: Regular Gastrointestinal/Abdomen GI Exam: Soft, Bowel Sounds Present, Distended Extremeties Extremities Exam: Moderate Edema Neurologic Neuro Exam: Unresponsive Assessment/Plan Problem List: (1) Acute renal failure ICD Codes: N17.9 - Acute kidney failure, unspecified Plan: Patient with acute renal failure cardiomyopathy CHF coronary syndrome ATN Daughter at bedside discussed with her. ARF/CKD stable but she has anoxic brain injury and will be on Ventilator support Her prognosis is poor due to anoxic brain injury BMP pending follow results Started on 07/28 NS.KCL 20 meq 70/hr water flushes Follow the urine out put and BMP. (2) Cardiopulmonary arrest ICD Codes: I46.9 - Cardiac arrest, cause unspecified Status: Acute Plan: Critical care following (3) Cardiogenic shock ICD Codes: R57.0 - Cardiogenic shock Status: Acute Plan: Cardiomyopathy (4) Anoxic encephalopathy ICD Codes: G93.1 - Anoxic brain damage, not elsewhere classified Status: Acute Plan: Brain injury with no recovery (5) Cardiomyopathy ICD Codes: I42.9 - Cardiomyopathy Status: Acute Plan: EF of 20% Problem Qualifiers (1) Acute renal failure: Qualified Codes: N17.0 - Acute kidney failure with tubular necrosis Apollo Hughes MD May 17, 2017 12:48
--- NOTE | 2017-05-17 13:18 | PD.CARD.PN ---
Subjective Subjective Remarks intubated, unresponsive off sedation Objective Medications Current Medications Medications (Trade) Dose Ordered Sig/Scarlett Route Start Time Stop Time Status Last Admin (Brethine Inj) 1 mg UNSCH PRN SQ 05/06/17 22:45 (Tylenol) 650 mg Q6H PRN PO 05/06/17 23:30 05/16/17 03:15 (Zofran Inj) 4 mg Q6H PRN IV PUSH 05/06/17 23:30 (Albuterol Neb) 2.5 mg Q2HR NEB PRN INH 05/06/17 23:30 Miscellaneous Information 1 Q361D XX 05/06/17 23:30 (Chlorhexidine 2% Cloth) Taper DAILY@04 TOP 05/07/17 04:00 05/03/18 03:59 05/13/17 03:36 (Chlorhexidine 2% Cloth) 3 pack UNSCH PRN TOP 05/06/17 23:30 (Aggie-Colace) 1 tab BID PO 05/07/17 09:00 05/17/17 08:30 (Milk Of Magnesia Liq) 30 ml Q12H PRN PO 05/06/17 23:30 (Senokot) 17.2 mg Q12H PRN PO 05/06/17 23:30 (Dulcolax Supp) 10 mg DAILY PRN RECTAL 05/06/17 23:30 (Peridex 0.12% Liq) 15 ml BID@08,20 MT 05/07/17 08:00 05/17/17 08:32 (Pepcid Inj) 10 mg Q12H IV PUSH 05/07/17 06:00 05/17/17 05:42 (Lacrilube Opht Oint) 1 applic Q4H PRN EACH EYE 05/07/17 04:30 05/13/17 09:30 (NS Flush) 2 ml BID IV FLUSH 05/07/17 09:00 05/16/17 20:18 (NS Flush) 2 ml UNSCH PRN IV FLUSH 05/07/17 04:30 Miscellaneous Information 0 ml @ 0 mls/hr UNSCH IV 05/07/17 04:30 (Heparin Inj) 5,000 units Q12H SQ 05/07/17 05:00 05/17/17 05:41 (Lacrilube Opht Oint) 1 applic Q12HR EACH EYE 05/07/17 09:00 05/17/17 08:32 (Ecotrin Ec) 81 mg DAILY PO 05/08/17 09:00 05/17/17 08:30 Piperacillin Sod/ Tazobactam Sod 50 ml @ 100 mls/hr Q6H IV 05/07/17 09:00 05/17/17 08:31 (Lactulose Liq) 30 ml DAILY OG-TUBE 05/07/17 09:00 05/17/17 08:30 (D50w (Vial) Inj) 50 ml UNSCH PRN IV PUSH 05/08/17 00:30 (Glucagon Inj) 1 mg UNSCH PRN OTHER 05/08/17 00:30 (NovoLOG SUPPLEMENTAL SCALE) 1 Q4H SQ 05/08/17 00:30 05/17/17 08:30 Levetriacetam 100 ml @ 400 mls/hr Q12HR IV 05/10/17 02:15 05/17/17 08:31 (Trandate Inj) 20 mg Q4H PRN IV 05/10/17 10:15 Pharmacy Profile Note 0 ml @ 0 mls/hr UNSCH OTHER 05/10/17 10:30 Diltiazem HCl 125 mg/Sodium Chloride 125 ml @ 5 mls/hr TITRATE PRN IV 05/10/17 12:00 05/16/17 20:44 (Apresoline Inj) 20 mg Q4H PRN IV PUSH 05/13/17 11:15 (Duoneb Neb) 1 ampule Q6HR NEB INH 05/14/17 10:00 05/17/17 09:10 (Coreg) 12.5 mg BID PO 05/14/17 21:00 05/17/17 08:30 (Norvasc) 10 mg DAILY PO 05/14/17 09:15 05/17/17 08:30 Vancomycin HCl 1500 mg/Sodium Chloride 515 ml @ 257.5 mls/ hr Q24H IV 05/15/17 12:00 05/17/17 11:22 Miscellaneous Information SPECIFIC LAB TO BE ESMER... ONCE ONCE .XX 05/18/17 11:45 05/18/17 11:46 Potassium Chloride 20 meq/ Sodium Chloride 38.5 meq/Sterile Water 1,019.625 ml @ 70 mls/hr [id number] IV 05/16/17 11:00 05/17/17 02:37 (Free Water) 300 ml Q8HR G-TUBE 05/16/17 10:00 05/17/17 05:42 (Depakene Liq) 250 mg BID NG 05/16/17 11:00 05/17/17 08:30 Vital Signs / I&O Vital Signs Date Time Temp Pulse Resp B/P (MAP) Pulse Ox O2 Delivery O2 Flow Rate FiO2 05/17/17 12:29 98 35 05/17/17 09:11 98 35 05/17/17 06:00 104 05/17/17 04:19 98 35 05/17/17 04:00 35 05/17/17 04:00 99.2 101 17 175/74 (107) 98 05/17/17 04:00 99 05/17/17 02:00 99 05/17/17 00:02 98 35 05/17/17 00:00 99.6 96 16 143/68 (93) 97 05/17/17 00:00 92 05/17/17 00:00 35 05/16/17 22:00 90 05/16/17 20:44 106 160/70 05/16/17 20:36 98 35 05/16/17 20:00 35 05/16/17 20:00 91 05/16/17 20:00 99.2 103 16 158/70 (99) 97 05/16/17 18:00 97 05/16/17 17:00 99 35 05/16/17 16:01 95 05/16/17 16:01 95 16 134/82 (99) 100 05/16/17 16:00 95 16 100 05/16/17 16:00 35 05/16/17 16:00 95 05/16/17 15:30 102 17 164/70 (101) 100 05/16/17 15:30 102 05/16/17 15:00 99 05/16/17 15:00 99 18 144/65 (91) 100 05/16/17 14:30 102 05/16/17 14:30 102 21 171/75 (107) 100 05/16/17 14:00 93 16 161/72 (101) 97 05/16/17 14:00 93 05/16/17 13:30 93 05/16/17 13:30 93 17 159/70 (99) 97 I/O 05/16/17 05/16/17 05/16/17 05/17/17 05/17/17 05/17/17 07:00 15:00 23:00 07:00 15:00 23:00 Intake Total 1650 ml 471 ml 1133 ml 827 ml Output Total 1000 ml 1300 ml 1750 ml Balance 650 ml 471 ml -167 ml -923 ml Intake IV Total 1162 ml 471 ml Tube Feeding 428 ml 533 ml 527 ml Other 60 ml 600 ml 300 ml Output Urine Total 1000 ml 1300 ml 1750 ml # Bowel Movements 2 5 2 Physical Exam GENERAL: SKIN: Warm and dry. HEAD: Normocephalic. EYES: No scleral icterus. No injection or drainage. NECK: Supple, trachea midline. No JVD or lymphadenopathy. CARDIOVASCULAR: Regular rate and rhythm without murmurs, gallops, or rubs. RESPIRATORY: Breath sounds equal bilaterally. No accessory muscle use. GASTROINTESTINAL: Abdomen soft, non-tender, nondistended. MUSCULOSKELETAL: No cyanosis, or edema. BACK: Nontender without obvious deformity. No CVA tenderness. Assessment and Plan Problem List: (1) CAD (coronary artery disease) ICD Codes: I25.10 - Atherosclerotic heart disease of [place] coronary artery without angina pectoris (2) CHRONIC OBSTRUCTIVE PULMON DISEASE W ACUTE LOWER RESP INFCT ICD Codes: J44.0 - CHRONIC OBSTRUCTIVE PULMON DISEASE W ACUTE LOWER RESP INFCT Status: Acute (3) Cardiomyopathy ICD Codes: I42.9 - Cardiomyopathy Status: Acute (4) Cardiopulmonary arrest ICD Codes: I46.9 - Cardiac arrest, cause unspecified Status: Acute (5) Diabetes mellitus ICD Codes: E11.9 - Type 2 diabetes mellitus without complications Status: Acute Assessment and Plan 1.) Cardiomyopathy - euvolemic, obie and beta navya held due to recent cardiogenic shock and uncertain neurologic status 2.) CAD - continue aspirin, statin held due to shock liver and elevated lfts Aguila Early MD May 17, 2017 13:18
--- NOTE | 2017-05-17 17:54 | HHI.HCPN ---
Reason for visit a. To assist with evaluation and management of symptoms including: Encephalopathy. b. To assist medical decision maker(s) with: better understanding of current medical conditions; weighing benefits/burdens of medical treatment options; making medical treatment decisions. . (Isadora Zhao) Subjective/Interval History Patient seen and examined in ICU. No family at bedside. Daughter has returned to [place]. The patient remains unresponsive off sedation. Opens eyes, does not track or blink to threat. Slight withdraw to painful stimuli left upper extremity only, otherwise no response to pain. Remains on mech vent, FiO2 35%. Tmax 99.6. Heart rate 90-100s. No new labs. urine culture positive raven albicans. 05/15/17 sputum culture heavy growth normal respiratory hanh. Tolerating tube feeding via OG. . Family/friend interactions Left message for Jitendra bray to return call JUDE to clarify goals and who she wants medical information given to. Awaiting return call. . (Isadora Zhao) Advance Directives Living Will: Never completed Health Care Surrogate: Never completed Durable Power of Lens Mold Setter: Never completed (Isadora Zhao) Advance Directive Specifics Health Care Surrogate(s): No written advanced directives. The patient is unmarried and has just one child , daughter Jitendra who lives in [place]. Patient is not capacitated and very unlikely to regain capacity for decision-making, According to [place] Statutes, health care proxy decision making falls to Jitendra Garcia. . Significant change in goals: Alternative Code: Intubation Only. Awaiting return call from daughter regarding trach/PEG decisions. . (Isadora Zhao) Objective Vital Signs Date Time Temp Pulse Resp B/P (MAP) Pulse Ox O2 Delivery O2 Flow Rate FiO2 05/17/17 17:09 99 35 05/17/17 16:30 100 16 152/69 (96) 97 05/17/17 16:01 100 16 155/67 (96) 99 05/17/17 16:00 100 16 98 05/17/17 16:00 35 05/17/17 14:00 91 05/17/17 12:29 98 35 05/17/17 12:00 93 05/17/17 12:00 35 05/17/17 12:00 97.3 93 16 141/64 (89) 97 05/17/17 12:00 97.5 05/17/17 10:00 87 05/17/17 09:11 98 35 05/17/17 08:00 35 05/17/17 08:00 100 05/17/17 08:00 97.5 05/17/17 06:00 104 05/17/17 04:19 98 35 05/17/17 04:00 35 05/17/17 04:00 99.2 101 17 175/74 (107) 98 05/17/17 04:00 99 05/17/17 02:00 99 05/17/17 00:02 98 35 05/17/17 00:00 99.6 96 16 143/68 (93) 97 05/17/17 00:00 92 05/17/17 00:00 35 05/16/17 22:00 90 05/16/17 20:44 106 160/70 05/16/17 20:36 98 35 05/16/17 20:00 35 05/16/17 20:00 91 05/16/17 20:00 99.2 103 16 158/70 (99) 97 05/16/17 18:00 97 Intake & Output 05/17/17 05/17/17 07:00 19:00 Intake Total 827 ml Output Total 1750 ml Balance -923 ml Tube Feeding 527 ml Other 300 ml Output Urine Total 1750 ml # Bowel Movements 2 Physical Exam CONSTITUTIONAL/GENERAL: This is an adequately nourished patient, on mech vent off all sedation. EYES: Pupils equal and round, questionable reaction to light. Febrile. NECK: Trachea midline. CARDIOVASCULAR: Regular rate and rhythm without murmurs, gallops, or rubs. . RESPIRATORY/CHEST: Symmetric, unlabored respirations on the ventilator. Scattered rhonchi bilaterally. Thick oral secretions noted. GASTROINTESTINAL: Abdomen soft, nondistended, obese. Bowel sounds present. MUSCULOSKELETAL: Extremities edema. No mottling or clubbing. NEUROLOGICAL: Unresponsive to my voice or exam. Does not track or blink to threat. Slight withdraw to pain on LUE, no response other extremities. PSYCHIATRIC: Unresponsive. . (Isadora Zhao) Diagnostic Tests Laboratory Laboratory Tests Test 05/15/17 04:30 05/15/17 19:51 05/16/17 06:53 Random Vancomycin Level 6.6 COMMENT White Blood Count 12.1 TH/MM3 (4.0-11.0) 13.7 TH/MM3 (4.0-11.0) Red Blood Count 3.27 MIL/MM3 (4.00-5.30) 3.23 MIL/MM3 (4.00-5.30) Hemoglobin 9.7 GM/DL (11.6-15.3) 9.8 GM/DL (11.6-15.3) Hematocrit 30.3 % (35.0-46.0) 30.4 % (35.0-46.0) Mean Corpuscular Volume 92.7 FL (80.0-100.0) 94.1 FL (80.0-100.0) Mean Corpuscular Hemoglobin 29.5 PG (27.0-34.0) 30.3 PG (27.0-34.0) Mean Corpuscular Hemoglobin Concent 31.8 % (32.0-36.0) 32.2 % (32.0-36.0) Red Cell Distribution Width 14.7 % (11.6-17.2) 14.8 % (11.6-17.2) Platelet Count 224 TH/MM3 (150-450) 222 TH/MM3 (150-450) Mean Platelet Volume 9.3 FL (7.0-11.0) 9.8 FL (7.0-11.0) Neutrophils (%) (Auto) 68.1 % (16.0-70.0) 72.7 % (16.0-70.0) Lymphocytes (%) (Auto) 15.8 % (9.0-44.0) 14.8 % (9.0-44.0) Monocytes (%) (Auto) 14.3 % (0.0-8.0) 11.4 % (0.0-8.0) Eosinophils (%) (Auto) 0.4 % (0.0-4.0) 0.4 % (0.0-4.0) Basophils (%) (Auto) 1.4 % (0.0-2.0) 0.7 % (0.0-2.0) Neutrophils # (Auto) 8.2 TH/MM3 (1.8-7.7) 9.9 TH/MM3 (1.8-7.7) Lymphocytes # (Auto) 1.9 TH/MM3 (1.0-4.8) 2.0 TH/MM3 (1.0-4.8) Monocytes # (Auto) 1.7 TH/MM3 (0-0.9) 1.6 TH/MM3 (0-0.9) Eosinophils # (Auto) 0.0 TH/MM3 (0-0.4) 0.1 TH/MM3 (0-0.4) Basophils # (Auto) 0.2 TH/MM3 (0-0.2) 0.1 TH/MM3 (0-0.2) CBC Comment DIFF FINAL DIFF FINAL Differential Comment Sodium Level 158 MEQ/L (136-145) 158 MEQ/L (136-145) Blood Urea Nitrogen 22 MG/DL (7-18) Creatinine 1.43 MG/DL (0.50-1.00) Random Glucose 275 MG/DL (74-106) Total Protein 6.7 GM/DL (6.4-8.2) Albumin 2.0 GM/DL (3.4-5.0) Calcium Level 8.3 MG/DL (8.5-10.1) Magnesium Level 2.3 MG/DL (1.5-2.5) Alkaline Phosphatase 89 U/L (45-117) Aspartate Amino Transf (AST/SGOT) 46 U/L (15-37) Alanine Aminotransferase (ALT/SGPT) 54 U/L (10-53) Total Bilirubin 0.3 MG/DL (0.2-1.0) Potassium Level 3.4 MEQ/L (3.5-5.1) Chloride Level 125 MEQ/L (98-107) Carbon Dioxide Level 25.5 MEQ/L (21.0-32.0) Anion Gap 8 MEQ/L (5-15) Estimat Glomerular Filtration Rate 46 ML/MIN (>89) (Isadora Zhao) Result Diagram: 05/16/17 0653 05/16/17 0653 Microbiology Microbiology Date/Time Source Procedure Growth Status 05/15/17 00:30 Sputum Endotracheal Gram Stain - Final Complete 05/15/17 00:30 Sputum Endotracheal Sputum Culture - Final HEAVY GROWTH NORMAL RESPIRATORY HANH Complete 05/14/17 21:45 Urine Catheterized Urine Urine Culture - Final Raven Albicans Complete Imaging Last Impressions Chest X-Ray 05/16/17 0600 Signed Impressions: Service Date/Time: Tuesday, May 16, 2017 04:55 - CONCLUSION: Persistent left lower lobe density. Cardiomegaly. Yasir Calvert MD Abdomen Ultrasound 05/07/17 0000 Signed Impressions: Service Date/Time: Sunday, May 07, 2017 14:19 - CONCLUSION: 1. Echogenic liver compatible with fatty infiltration or hepatocellular disease. 2. Cholecystectomy Laith Ceo MD Head CT 05/06/174 Signed Impressions: Service Date/Time: Sunday, May 07, 2017 03:14 - CONCLUSION: Normal examination. Noé Ybarra MD CT Angiography 05/06/17 0000 Signed Impressions: Service Date/Time: Sunday, May 07, 2017 03:21 - CONCLUSION: 1. No pulmonary embolus. 2. Bibasilar areas of consolidation or atelectasis being worse on the left. There are minimal bilateral pleural effusions. Noé Ybarra MD . Procedures Bilateral femoral arterial lines and left femoral heat exchange catheter . (Isadora Zhao) Assessment and Plan Disease Oriented Problem List: (1) anoxic brain injury, severe encephalopathy (2) PEA cardiac arrest 05/06/17 (3) respiratory failure s/p cardiac arrest and resuscitation (4) transaminitis, likely due to hypoxic insult (5) history of CHF, ejection fraction 15-20% in 2013 (6) acute kidney injury (7) coronary artery disease, moderate disease on cath in 2013 (8) insulin-dependent diabetes (9) COPD, moderate (10) history of seizure disorder (11) unspecified but significant psychiatric illness, disabling (12) depression (13) hyperlipidemia (14) hypertension (15) GERD (16) chronic back pain (17) peripheral neuropathy (18) anxiety Symptom Scale: (1) anxiety 0-10 Scale: Unable to quantify (2) dyspnea 0-10 Scale: Unable to quantify (3) encephalopathy 0-10 Scale: Unable to quantify Pertinent Non-Medical Issues Psychosocial: Unmarried, 1 daughter in [place], disabled via psychiatric diagnoses for many years. Was living alone. Spiritual: Unaffiliated yazdanism Legal: The patient is unmarried and has just one child, daughter Cheyanne in [place]. The patient is very unlikely to regain capacity for decision-making, so Patty Lozano is the proxy decision-maker. Ethical issues impacting care: None. . Important Contacts Patient's daughter/HCP Cheyanne Garcia [phone] . Prognosis The patient's prognosis is extremely poor. She has underlying moderate or severe pulmonary and cardiac disease, and now has an apparent significant anoxic brain injury. . Code Status: Alternative Code (intubation only) Plan * ALTERNATE CODE, intubation only per request of daughter 05/10/17 * DECISION-MAKING: No written advanced directives. The patient is unmarried and has just one child, daughter Jitendra who lives in [place]. Patient is not capacitated and very unlikely to regain capacity for decision-making, According to [place] Statutes, health care proxy decision making falls to Jitendra Garcia. * GOALS: Left message for Jitendra bray to return call to further calrify trach/PEG decision. Nurses also request I clarify who they are allowed to give medical updates to, offer to change PIN number. * SYMPTOMS: No evidence of pain, dyspnea, anxiety at this time. No seizures noted. Encephalopathy: due to anoxic brain injury, seizure, no evidence of neurologic recovery. No new medication recommendations at this time. * Palliative Care will continue to follow the patient during this hospitalization. . (Isadora Zhao) Attestation To help prompt me to consider important information that might be impacting today's encounter and assessment, information from prior notes written by myself or my colleagues may have been "brought forward" into today's note. My signature on this note, however, is an attestation that I personally performed the exam, history, and/or decision-making noted today, and, unless otherwise indicated, the interactions with patient, family, and staff as well as the review of records all occurred today. I also attest that the listed assessment and stated plan reflect my best clinical judgment today based on the combination of historical information, prior notes, and today's exam/ interactions. When time spent is documented, it refers only to time spent today by the signer, or if indicated, combined time spent today by collaborating physician/nurse practitioner. (Isadora Zhao) Collaborating MD Comments Chart reviewed. Case discussed with palliative care [employer] MEMBER OTHER RANKS. Above note reviewed and I concur. . (Zachariah Marie MD) Isadora Zhao May 17, 2017 17:54 Zachariah Marie MD May 19, 2017 17:20
[2017-05-17] MEDS: ACETAMINOPHEN 325 MG TAB PO PRN (19:45)
[2017-05-17 19:56] LABS: BICARBONATE 26.7 MEQ/L (21.0-32.0); POTASSIUM 3.4 MEQ/L (3.5-5.1)
[2017-05-17] MEDS: D5W + KCL 20 MEQ INJ 1,000 ML IV SCH (23:45)
[2017-05-18] VITALS (28 sets, daily range): BP systolic 100–187; BP diastolic 67–83; PULSE 79–171; RESP 16–26; TEMP 98.7–99; O2SAT 97–100
[2017-05-18] MEDS: PIPERACIL-TAZO 3.375 GM PREMIX 50 ML IV SCH ×4 (03:00→19:46)
[2017-05-18] MEDS: RESP: ALBUTEROL 2.5 MG/IPRATROPIUM 0.5 MG NEB (SCH) INH ×4 (03:36→20:05)
[2017-05-18] MEDS: CHLORHEXIDINE GLUCONATE 2 % 1 PACK (2 CLOTHS) TOP SCH (04:00)
[2017-05-18] MEDS: HEPARIN SODIUM - SQ 10,000 UNITS/ML VIAL SQ SCH ×2 (04:28→17:10)
[2017-05-18] MEDS: INSULIN ASPART SUPPLEMENTAL SCALE SQ SCH ×5 (04:28→19:48)
[2017-05-18] MEDS: FREE WATER G-TUBE SCH ×4 (04:29→19:48)
[2017-05-18] MEDS: FAMOTIDINE 20 MG/2 ML VIAL IV PUSH SCH (04:29)
[2017-05-18] MEDS ORDERED: DIGOXIN 0.5 MG/2 ML VIAL IV PUSH ONE ×2 (07:00→13:00)
[2017-05-18] MEDS ORDERED: MIDAZOLAM HCL 2 MG/2 ML VIAL IV PUSH ONE (07:00)
[2017-05-18 07:24] LABS: BICARBONATE 27.4 MEQ/L (21.0-32.0); POTASSIUM 3.7 MEQ/L (3.5-5.1)
[2017-05-18] MEDS: CHLORHEXIDINE 0.12% (ORAL KIT) 15 ML CUP MT SCH ×2 (08:00→19:49)
--- NOTE | 2017-05-18 08:11 | HHI.CCPN ---
Subjective Remarks/Hospital Course 56-year-old female with past medical history of hypertension, chronic systolic heart failure, diabetes, COPD bipolar disorder, seizure disorder who presented to [facility] emergency department via [facility] following cardiac arrest. [facility] was originally called for shortness of breath and when they arrived patient was unresponsive and in PEA. Combitube was placed. CPR was initiated and patient was administered epinephrine 4, 1 amp bicarbonate, Narcan 2 mg prior to arrival via left tibial I/O. Blood glucose was 334. Exact duration of prehospital CPR is unclear. Combitube was removed and she was intubated upon arrival. Patient had ROSC 5 minutes after arrival. She received additional epinephrine 2 in the ED. She also received 1 L normal saline bolus, vancomycin, Zosyn in the ED. Critical care medicine is consulted for admission. EKG has no acute ischemia. SUBJ 05/07: Intubated sedated neuromuscularly paralyzed. Induced hypothermia initiated at 7 AM, 2-D echo shows EF 25-30%, mild to moderate MR. Serial troponins negative 05/08: Remains neuromuscularly paralyzed. Hypothermia will be completed by the known and rewarming was started. Remains off inotropes and pressors 05/09: Hypothermia protocol completed, placed overnight on Versed also in addition to propofol and fentanyl for tachycardia and asynchrony. Currently patient while on sedation do not open eyes with very slight withdrawal to pain 05/10: Developed Afib with RVR yesterday with HR in 200's DC cardioverted at night by Dr. Chu. Placed back on Versed. RN reports paroxysmal A fib. EEG pending at this time for subclinical sz. EEG 05/07 burst suppression pattern. Neuro prognosis poor 05/11: No neuro improvement. Creat worsening, nephrology consulted. EEG severe encephalopathy consistent with anoxic injury. Palliative care is following 05/12: There had been no improvement in neuro status after completion of code cool approximately 4 days ago. Patient has not shown not seen any signs of improvement. Palliative care met with family. Patient is developing multiorgan dysfunction syndrome. Daughter wants withdrawal of life support but wants to wait until some other family members can visit from [place] 05/13: No meaningful recovery yet. Opens eyes partially to pain. Weakly withdraws all extremities to pain. UO 1.8L in 24 hours. Family considering withdrawal of life support today, considering comorbidities and poor neuro recovery after cooling 05/14: Eyes are spontaneously open but with upward gaze. No tracking no response to threat. Withdraws bilateral upper extremity to pain. Had been off sedation more than 4 days 05/15: Neuro exam remains unchanged, even less eye-opening and withdrawal. Fever up to 103.5. Pancultured. Continue on vancomycin and Zosyn until cultures are back. 05/16: no improvements or changes to mental status. persistent encephalopathy. poor prognosis. family wants to wait until other family can be present. palliative care clarifying goals. 05/17: no changes to poor mental status. still awaiting family. hypernatremia worsening. nephrology following. Cr improving though; ahsan post-ATN diuresis. Subjective 05/18: Tmax 98.9. Positive gag. Positive corneal reflex. Blinks. Does not withdraw to pain. Went to A. fib with RVR the today requiring synchronous cardioversion with 200 J currently in sinus tachycardia. Given digoxin 0.5 mg IV now. Objective Vital Signs Date Time Temp Pulse Resp B/P (MAP) Pulse Ox O2 Delivery O2 Flow Rate FiO2 05/18/17 06:00 171 05/18/17 04:10 100 35 05/18/17 04:00 98.9 16 172/71 (104) Intake and Output 05/18/17 05/18/17 05/19/17 08:00 16:00 00:00 Intake Total 1522 ml Output Total 1750 ml Balance -228 ml Result Diagram: 05/16/17 0653 05/18/17 0634 Other Results Microbiology Date/Time Source Procedure Growth Status 05/14/17 11:30 Blood Peripheral Aerobic Blood Culture - Preliminary NO GROWTH IN 3 DAYS Resulted 05/14/17 11:30 Blood Peripheral Anaerobic Blood Culture - Preliminary NO GROWTH IN 3 DAYS Resulted 05/15/17 00:30 Sputum Endotracheal Gram Stain - Final Complete 05/15/17 00:30 Sputum Endotracheal Sputum Culture - Final HEAVY GROWTH NORMAL RESPIRATORY JORDEN Complete 05/14/17 21:45 Urine Catheterized Urine Urine Culture - Final Lucinda Albicans Complete Imaging Last Impressions Chest X-Ray 05/16/17 0600 Signed Impressions: Service Date/Time: Tuesday, May 16, 2017 04:55 - CONCLUSION: Persistent left lower lobe density. Cardiomegaly. Yasir Calvert MD Abdomen Ultrasound 05/07/17 0000 Signed Impressions: Service Date/Time: Sunday, May 07, 2017 14:19 - CONCLUSION: 1. Echogenic liver compatible with fatty infiltration or hepatocellular disease. 2. Cholecystectomy Laith Coe MD Head CT 05/06/172123 Signed Impressions: Service Date/Time: Sunday, May 07, 2017 03:14 - CONCLUSION: Normal examination. Noé Ybarra MD CT Angiography 05/06/17 0000 Signed Impressions: Service Date/Time: Sunday, May 07, 2017 03:21 - CONCLUSION: 1. No pulmonary embolus. 2. Bibasilar areas of consolidation or atelectasis being worse on the left. There are minimal bilateral pleural effusions. Noé Ybarra MD Objective Remarks GENERAL: 56-year-old female who is intubated, critically ill and unresponsive SKIN: Warm and dry. Well perfused HEAD: Atraumatic. Normocephalic. EYES: Bilateral exophthalmus. Pupils equal and round, reactive around 4 mm bilaterally. Positive corneal reflex ENT: No nasal bleeding or discharge. Orotracheally intubated NECK: Trachea midline. No JVD appreciated. No meningismus CARDIOVASCULAR: Tachycardic, RR. S1, S2. No S4. 2/6 diastolic murmur RESPIRATORY: full mechanical support. fio2 35%. equal chest rise. GASTROINTESTINAL: Abdomen protuberant soft. No appreciable tenderness , rebound or guarding. Hypoactive bowel sounds : Benoit catheter is in place MUSCULOSKELETAL: Extremities without significant peripheral edema NEUROLOGICAL: Blinks.. Minimal partial eye opening to pain. Slight withdrawal to pain in all 4 ext upper extremities more than lower. Pupils as above. Positive gag. A/P Problem List: (1) Cardiac arrest ICD Code: I46.9 - Cardiac arrest, cause unspecified (2) Anoxic-ischemic encephalopathy ICD Code: G93.1 - Anoxic brain damage, not elsewhere classified; I67.82 - Cerebral ischemia (3) Chronic systolic heart failure ICD Code: I50.22 - Chronic systolic (congestive) heart failure Status: Chronic (4) Exophthalmos of both eyes ICD Code: H05.20 - Unspecified exophthalmos Status: Chronic (5) HTN (hypertension) ICD Code: I10 - Essential (primary) hypertension Status: Chronic (6) HLD (hyperlipidemia) ICD Code: E78.5 - Hyperlipidemia, unspecified Status: Chronic (7) Cardiogenic shock ICD Code: R57.0 - Cardiogenic shock Status: Acute (8) Acute respiratory failure with hypercapnia ICD Code: J96.02 - Acute respiratory failure with hypercapnia Status: Acute (9) Obesity (BMI 30-39.9) ICD Code: E66.9 - Obesity, unspecified Status: Chronic (10) CHF (congestive heart failure) ICD Code: I50.9 - CHF (congestive heart failure) Status: Acute (11) Bipolar disorder ICD Code: F31.9 - Bipolar affective disorder Status: Chronic (12) COPD (chronic obstructive pulmonary disease) ICD Code: J44.9 - Chronic obstructive pulmonary disease Status: Chronic (13) Tobacco abuse ICD Code: Z72.0 - Tobacco use Status: Chronic Assessment and Plan NEURO/PSYCH: Acute anoxic encephalopathy, severe Bipolar disorder Exophthalmus Status post completion of induced therapeutic hypothermia. initiated at 0700 , completed 05/08/17. Off sedation more than 6 days No neurologic improvement yet, prognosis poor. Neurology Dr. Solitario. CT brain - negative. Depakote level. 48. Was on Depakote for bipolar. restarted Depakote at 250 twice a [id number] daily at home Lactulose 30 daily. Ammonia level down to 31. Neg urine drug screen, APAP, ASA level. Resumed gabapentin 100 milligrams at night. Holding bupropion 150 mg daily EEG shows severe encephalopathy, burst suppression pattern. Repeat EEG severe encephalopathy RESP: Acute hypercapnic respiratory failure COPD Tobacco abuse ACV tidal volume 16/550/5/35. Ventilator bundle. Albuterol/ipratropium aerosols q6 hours. Albuterol q2 hours prn. No Wheezing No Vent weaning until mental status improved CV: PEA cardiac arrest Post cardiac arrest syndrome with shock (resolved) Afib with RVR Chronic systolic heart failure with ejection fraction 15-20% (25-30 on echo) Nonobstructive Coronary artery disease Essential Hypertension, uncontrolled Hyperlipidemia Holding valsartan 160 mg due to acute kidney injury. Carvedilol 12.5 mg twice a day and amlodipine 10 mg daily. use IV Hydralazine and labetalol PRN for SBP >170. DCCV for Afib RVR with HR 200/min. 2. Second time 05/18 Continue Cardizem for paroxysmal A fib and digoxin EKG normal sinus rhythm rate of 99. No apparent acute ischemia. Follow-up serial EKGs and cardiac markers-negative. 2-D echo EF 25-30%. Cardiology Dr. Early Etiology of cardiac arrest unclear. Most likely due to hypercapnia and respiratory acidosis Continue aspirin 81 mg daily. Holding statin simvastatin 40 mg daily due to elevated LFTs. GI: GERD Transaminitis, probable ischemic hepatopathy. Orogastric tube. RUQ us-fatty liver, hepatitis panel negative Tube feeds with Glucerna currently at 45 cc an hour Famotidine for GI prophylaxis Docusate sodium/senna twice a day for bowel regimen FEN/RENAL: MARQUEZ Lactic acidemia Hypernatremia Benoit in place. Monitor intake and output. Monitor electrolytes and replace as indicated. Hold home NSAID's. Creat improved today Nephrology consult for worsening creatinine. Dr. Hughes following. Nonoliguric renal failure Currently on D5 water with 20 KCl at 70 cc an hour. Free water 300 cc every 4 hours. Recheck sodium in AM. 20 Milliequivalents KCl 1 today. ID: High fever, sepsis Candiduria Bacteremia with strep viridans, Coag neg staph, pleomorphic GPR Received piperacillin/tazobactam and vancomycin in the emergency department. Continue piperacillin/tazobactam and vancomycin Blood cultures 05/06 with strep radius, coag negative staph and pleomorphic gram -positive rods. Urine culture 05/03 with Lucinda albicans HEME: No acute hematologic issues. ENDO: Diabetes mellitus with acute hyperglycemia Hold metformin 1000 mg twice a day, glipizide 5 mg twice a day, insulin glargine 24 units daily. SSI Novulog every 4 hours/low Thyroid studies-essentially euthyroid PROPH: Sq heparin for DVT prophylaxis. Famotidine for stress ulcer prophylaxis and history of GERD ACCESS: Peripheral IV. Central line if indicated. ALT CODE. Palliative care following. Prognosis appears very poor. Now with multiorgan failure. Daughter may withdraw active life support once family members from [place] can visit. D/W Dr. Adhikari. No final decision has been made by family Level II follow-up Problem Qualifiers (1) HTN (hypertension): Qualified Codes: I10 - Essential (primary) hypertension Oscar Owen MD May 18, 2017 08:11
[2017-05-18] MEDS ORDERED: POTASSIUM CHLORIDE 20 MEQ PWD PACKET PO ONE (08:15)
[2017-05-18] MEDS: LACTULOSE SYRUP 20 GM/30 ML CUP OG-TUBE SCH (08:51)
[2017-05-18] MEDS: ASPIRIN EC 81 MG TABEC PO SCH (08:52)
[2017-05-18] MEDS: FAMOTIDINE 20 MG TAB NG SCH (08:52)
[2017-05-18] MEDS: CARVEDILOL 12.5 MG TAB PO SCH ×2 (08:52→19:46)
[2017-05-18] MEDS: VALPROIC ACID SYRUP 250 MG/5 ML UDC NG SCH ×2 (08:52→19:47)
[2017-05-18] MEDS: levETIRAcetam 500 MG/5 ML UDC NG SCH ×2 (08:52→19:47)
[2017-05-18] MEDS: ARTIFICIAL TEARS OPTH OINT 3.5 APPLIC/3.5 GM TUBO EACH EYE SCH ×2 (08:56→19:48)
[2017-05-18] MEDS: DOCUSATE SODIUM 50 MG/SENNA 8.6 MG TAB PO SCH ×2 (08:57→19:48)
[2017-05-18] MEDS: SODIUM CHLORIDE 0.9% FLUSH 10 ML FLUSH IV FLUSH SCH ×2 (09:00→19:55)
--- NOTE | 2017-05-18 09:16 | RADRPT ---
EXAM DATE/TIME: 05/18/2017 08:14 [facility] COMPARISON: CHEST SINGLE AP, May 16, 2017, 4:55. INDICATIONS : Verify et tube placement. MEDICAL HISTORY : Diabetes mellitus type II. Hypertension Hyperlipidemia SURGICAL HISTORY : Cholecystectomy. ENCOUNTER: Subsequent ACUITY: 2 weeks PAIN SCORE: Non-responsive. LOCATION: Bilateral chest FINDINGS: ET tube tip is above the level of the head of the clavicles. Gastric tube traverses the field of vie w. There is a persistent opacity in the left lower lung with air bronchograms; there is new possible margination medially. Loss of delineation of portion of the mid left hemidiaphragm. The right lung is clear. The heart supplement is normal size. CONCLUSION: ET tube tip that the upper thoracic level. Increasing left lower lung consolidation. Obi Barnes MD on May 18, 2017 at 9:13 Board Certified Radiologist. This report was verified electronically.
[2017-05-18 09:27] LABS: TOTAL BILIRUBIN ADULT 0.4 MG/DL (0.2-1.0); VANCOMYCIN TROUGH 15.4 MCG/ML (5.0-10.0)
[2017-05-18 09:30] LABS: INDIRECT BILIRUBIN 0.3 MG/DL (0.0-0.8); MAGNESIUM 2.5 MG/DL (1.5-2.5)
[2017-05-18 11:38] LABS: HEMATOCRIT 30.9 % (35.0-46.0); MEAN CELL VOLUME 94.7 FL (80.0-100.0); MEAN CORPUSCULAR HEMOGLOBIN 30.2 PG (27.0-34.0); MEAN CORPUSCULAR HGB CONC 31.9 % (32.0-36.0); PLATELET COUNT 235 TH/MM3 (150-450); RED BLOOD COUNT 3.26 MIL/MM3 (4.00-5.30); RED CELL DISTRIBUTION WIDTH 14.7 % (11.6-17.2); REVIEW FLAG FINAL; WHITE BLOOD COUNT 14.2 TH/MM3 (4.0-11.0)
[2017-05-18] MEDS ORDERED: PHARMACY ORDERED LAB ONE (11:45)
[2017-05-18] MEDS: VANCOMYCIN 1,500 MG/NS 500 ML IV SCH ×2 (12:43)
[2017-05-18] MEDS ORDERED: EPINEPHrine (1:1000) INJ 2 MG in DEXTROSE 5% IN WATER INJ 250 ML IV PRN ×2 (12:45)
[2017-05-18] MEDS ORDERED: DOBUTamine INJ 1,000 MG in DEXTROSE 5% IN WATER INJ 170 ML IV PRN ×2 (12:45)
[2017-05-18] MEDS: MIDAZOLAM 100 MG/100 ML INJ 100 ML IV PRN (12:46)
--- NOTE | 2017-05-18 13:26 | PD.CARD.PN ---
Subjective Subjective Remarks intubated, unresponsive off sedation Objective Medications Current Medications Medications (Trade) Dose Ordered Sig/Scarlett Route Start Time Stop Time Status Last Admin (Brethine Inj) 1 mg UNSCH PRN SQ 05/06/17 22:45 (Tylenol) 650 mg Q6H PRN PO 05/06/17 23:30 05/17/17 19:45 (Zofran Inj) 4 mg Q6H PRN IV PUSH 05/06/17 23:30 (Albuterol Neb) 2.5 mg Q2HR NEB PRN INH 05/06/17 23:30 Miscellaneous Information 1 Q361D XX 05/06/17 23:30 (Chlorhexidine 2% Cloth) Taper DAILY@04 TOP 05/07/17 04:00 05/03/18 03:59 05/13/17 03:36 (Chlorhexidine 2% Cloth) 3 pack UNSCH PRN TOP 05/06/17 23:30 (Aggie-Colace) 1 tab BID PO 05/07/17 09:00 05/17/17 19:39 (Milk Of Magnesia Liq) 30 ml Q12H PRN PO 05/06/17 23:30 (Senokot) 17.2 mg Q12H PRN PO 05/06/17 23:30 (Dulcolax Supp) 10 mg DAILY PRN RECTAL 05/06/17 23:30 (Peridex 0.12% Liq) 15 ml BID@08,20 MT 05/07/17 08:00 05/18/17 08:00 (NS Flush) 2 ml BID IV FLUSH 05/07/17 09:00 05/17/17 19:41 (NS Flush) 2 ml UNSCH PRN IV FLUSH 05/07/17 04:30 (Heparin Inj) 5,000 units Q12H SQ 05/07/17 05:00 05/18/17 04:28 (Lacrilube Opht Oint) 1 applic Q12HR EACH EYE 05/07/17 09:00 05/18/17 08:56 (Ecotrin Ec) 81 mg DAILY PO 05/08/17 09:00 05/18/17 08:52 Piperacillin Sod/ Tazobactam Sod 50 ml @ 100 mls/hr Q6H IV 05/07/17 09:00 05/21/17 08:59 05/18/17 08:54 (Lactulose Liq) 30 ml DAILY OG-TUBE 05/07/17 09:00 05/18/17 08:51 (D50w (Vial) Inj) 50 ml UNSCH PRN IV PUSH 05/08/17 00:30 (Glucagon Inj) 1 mg UNSCH PRN OTHER 05/08/17 00:30 (NovoLOG SUPPLEMENTAL SCALE) 1 Q4H SQ 05/08/17 00:30 05/18/17 12:30 (Trandate Inj) 20 mg Q4H PRN IV 05/10/17 10:15 Pharmacy Profile Note 0 ml @ 0 mls/hr UNSCH OTHER 05/10/17 10:30 Diltiazem HCl 125 mg/Sodium Chloride 125 ml @ 5 mls/hr TITRATE PRN IV 05/10/17 12:00 05/16/17 20:44 (Apresoline Inj) 20 mg Q4H PRN IV PUSH 05/13/17 11:15 (Coreg) 12.5 mg BID PO 05/14/17 21:00 05/18/17 08:52 (Norvasc) 10 mg DAILY PO 05/14/17 09:15 05/18/17 08:52 Vancomycin HCl 1500 mg/Sodium Chloride 515 ml @ 257.5 mls/ hr Q24H IV 05/15/17 12:00 05/18/17 12:43 (Depakene Liq) 250 mg BID NG 05/16/17 11:00 05/18/17 08:52 Potassium Chloride/Dextrose 1,000 ml @ 70 mls/hr [id number] IV 05/17/17 23:45 05/17/17 23:45 (Duoneb Neb) 1 ampule Q6HR NEB INH 05/18/17 10:00 05/18/17 08:29 (Free Water) 300 ml Q4HR G-TUBE 05/18/17 12:00 05/18/17 12:00 (Pepcid) 20 mg DAILY NG 05/18/17 09:00 05/18/17 08:52 (Keppra Liq) 1,000 mg Q12HR NG 05/18/17 09:00 05/18/17 08:52 (Neurontin Liq) 100 mg HS NG 05/18/17 21:00 Midazolam HCl 100 ml @ 2 mls/hr TITRATE PRN IV 05/18/17 08:30 05/18/17 12:46 Epinephrine HCl 2 mg/Dextrose 252 ml @ 22.68 mls/ hr TITRATE PRN IV 05/18/17 12:45 Dobutamine HCl 1000 mg/Dextrose 250 ml @ 3.82 mls/hr TITRATE PRN IV 05/18/17 12:45 Vital Signs / I&O Vital Signs Date Time Temp Pulse Resp B/P (MAP) Pulse Ox O2 Delivery O2 Flow Rate FiO2 05/18/17 11:55 100 35 05/18/17 08:30 100 35 05/18/17 06:00 171 05/18/17 04:10 100 35 05/18/17 04:00 35 05/18/17 04:00 98.9 101 16 172/71 (104) 100 05/18/17 04:00 100 05/18/17 02:00 97 05/18/17 00:13 100 35 05/18/17 00:00 98.7 92 16 149/67 (94) 100 05/18/17 00:00 35 05/18/17 00:00 90 05/17/17 22:00 84 05/17/17 21:45 92 35 05/17/17 20:00 81 05/17/17 20:00 100.4 115 16 204/88 (126) 98 05/17/17 20:00 35 05/17/17 17:09 99 35 05/17/17 16:30 100 16 152/69 (96) 97 05/17/17 16:01 100 16 155/67 (96) 99 05/17/17 16:00 100 16 98 05/17/17 16:00 35 05/17/17 14:00 91 I/O 05/17/17 05/17/17 05/17/17 05/18/17 05/18/17 05/18/17 07:00 15:00 23:00 07:00 15:00 23:00 Intake Total 827 ml 1122 ml 1522 ml 200 ml Output Total 1750 ml 1300 ml 1750 ml Balance -923 ml -178 ml -228 ml 200 ml Intake IV Total 631 ml 200 ml Tube Feeding 527 ml 522 ml 591 ml Other 300 ml 600 ml 300 ml Output Urine Total 1750 ml 1300 ml 1750 ml # Bowel Movements 2 6 2 Physical Exam GENERAL: SKIN: Warm and dry. HEAD: Normocephalic. EYES: No scleral icterus. No injection or drainage. NECK: Supple, trachea midline. No JVD or lymphadenopathy. CARDIOVASCULAR: Regular rate and rhythm without murmurs, gallops, or rubs. RESPIRATORY: Breath sounds equal bilaterally. No accessory muscle use. GASTROINTESTINAL: Abdomen soft, non-tender, nondistended. MUSCULOSKELETAL: No cyanosis, or edema. BACK: Nontender without obvious deformity. No CVA tenderness. Laboratory Laboratory Tests Test 05/17/17 17:44 05/18/17 06:34 05/18/17 10:50 Blood Urea Nitrogen 20 MG/DL 21 MG/DL Creatinine 1.26 MG/DL 1.30 MG/DL Random Glucose 237 MG/DL 258 MG/DL Calcium Level 8.8 MG/DL 9.1 MG/DL Sodium Level 158 MEQ/L 157 MEQ/L Potassium Level 3.4 MEQ/L 3.7 MEQ/L Chloride Level 124 MEQ/L 123 MEQ/L Carbon Dioxide Level 26.7 MEQ/L 27.4 MEQ/L Anion Gap 7 MEQ/L 7 MEQ/L Estimat Glomerular Filtration Rate 53 ML/MIN 51 ML/MIN Phosphorus Level 2.4 MG/DL Magnesium Level 2.5 MG/DL Total Bilirubin 0.4 MG/DL Direct Bilirubin 0.1 MG/DL Indirect Bilirubin 0.3 MG/DL Aspartate Amino Transf (AST/SGOT) 47 U/L Alanine Aminotransferase (ALT/SGPT) 44 U/L Alkaline Phosphatase 93 U/L Total Protein 7.3 GM/DL Albumin 2.0 GM/DL Vancomycin Level Trough 15.4 MCG/ML White Blood Count 14.2 TH/MM3 Red Blood Count 3.26 MIL/MM3 Hemoglobin 9.9 GM/DL Hematocrit 30.9 % Mean Corpuscular Volume 94.7 FL Mean Corpuscular Hemoglobin 30.2 PG Mean Corpuscular Hemoglobin Concent 31.9 % Red Cell Distribution Width 14.7 % Platelet Count 235 TH/MM3 Mean Platelet Volume 10.8 FL Imaging Last 24 hours Impressions Chest X-Ray 05/18/17 0000 Signed Impressions: Service Date/Time: Thursday, May 18, 2017 08:14 - CONCLUSION: ET tube tip that the upper thoracic level. Increasing left lower lung consolidation. Obi Barnes MD Assessment and Plan Problem List: (1) CAD (coronary artery disease) ICD Codes: I25.10 - Atherosclerotic heart disease of [place] coronary artery without angina pectoris (2) CHRONIC OBSTRUCTIVE PULMON DISEASE W ACUTE LOWER RESP INFCT ICD Codes: J44.0 - CHRONIC OBSTRUCTIVE PULMON DISEASE W ACUTE LOWER RESP INFCT Status: Acute (3) Cardiomyopathy ICD Codes: I42.9 - Cardiomyopathy Status: Acute (4) Cardiopulmonary arrest ICD Codes: I46.9 - Cardiac arrest, cause unspecified Status: Acute (5) Diabetes mellitus ICD Codes: E11.9 - Type 2 diabetes mellitus without complications Status: Acute Assessment and Plan 1.) Cardiomyopathy - euvolemic, obie and beta navya held due to recent cardiogenic shock and uncertain neurologic status 2.) CAD - continue aspirin, statin held due to shock liver and elevated lfts Aguila Early MD May 18, 2017 13:26
--- NOTE | 2017-05-18 13:29 | HHI.NPPN ---
Subjective History of Present Illness 56 year old female with cardiomyopathy COPD CAD Anoxic bran injury and develop ARF. Additional Remarks Patient remain on the vent. comatose, now spiking fever. Objective Data Data 05/18/17 05/19/17 19:00 07:00 Intake Total 200 ml Balance 200 ml Intake IV Total 200 ml Vital Signs Date Time Temp Pulse Resp B/P (MAP) Pulse Ox O2 Delivery O2 Flow Rate FiO2 05/18/17 11:55 100 35 05/18/17 08:30 100 35 05/18/17 06:00 171 05/18/17 04:10 100 35 05/18/17 04:00 35 05/18/17 04:00 98.9 101 16 172/71 (104) 100 05/18/17 04:00 100 05/18/17 02:00 97 05/18/17 00:13 100 35 05/18/17 00:00 98.7 92 16 149/67 (94) 100 05/18/17 00:00 35 05/18/17 00:00 90 05/17/17 22:00 84 05/17/17 21:45 92 35 05/17/17 20:00 81 05/17/17 20:00 100.4 115 16 204/88 (126) 98 05/17/17 20:00 35 05/17/17 17:09 99 35 05/17/17 16:30 100 16 152/69 (96) 97 05/17/17 16:01 100 16 155/67 (96) 99 05/17/17 16:00 100 16 98 05/17/17 16:00 35 05/17/17 14:00 91 -: 05/18/17 1050 05/18/17 0634 Physical Exam Neck Neck Exam: Neck Supple Pulmonary Resp Exam: Breath Sounds Equal, Rhonchi, Decreased Bases, Poor Inspiratory Effort Cardiology CV Exam: Regular Gastrointestinal/Abdomen GI Exam: Soft, Bowel Sounds Present, Distended Extremeties Extremities Exam: Moderate Edema Neurologic Neuro Exam: Unresponsive Assessment/Plan Problem List: (1) Acute renal failure ICD Codes: N17.9 - Acute kidney failure, unspecified Plan: Patient with acute renal failure cardiomyopathy CHF coronary syndrome ATN Daughter at bedside discussed with her. ARF/CKD stable but she has anoxic brain injury and will be on Ventilator support Her prognosis is poor due to anoxic brain injury BMP Na 157 /Cr 1.7 give DDAVP Started on 07/28 NS.KCL 20 meq 70/hr water flushes Follow the urine out put and BMP. (2) Cardiopulmonary arrest ICD Codes: I46.9 - Cardiac arrest, cause unspecified Status: Acute Plan: Critical care following (3) Cardiogenic shock ICD Codes: R57.0 - Cardiogenic shock Status: Acute Plan: Cardiomyopathy (4) Anoxic encephalopathy ICD Codes: G93.1 - Anoxic brain damage, not elsewhere classified Status: Acute Plan: Brain injury with no recovery (5) Cardiomyopathy ICD Codes: I42.9 - Cardiomyopathy Status: Acute Plan: EF of 20% Problem Qualifiers (1) Acute renal failure: Qualified Codes: N17.0 - Acute kidney failure with tubular necrosis Apollo Hughes MD May 18, 2017 13:29
--- NOTE | 2017-05-18 14:49 | HHI.HCPN ---
Reason for visit a. To assist with evaluation and management of symptoms including: Encephalopathy. b. To assist medical decision maker(s) with: better understanding of current medical conditions; weighing benefits/burdens of medical treatment options; making medical treatment decisions. . (Isadora Zhao) Subjective/Interval History Patient seen and examined in ICU. No family at bedside. The patient remains unresponsive off sedation. Opens eyes, does not track or blink to threat. No response to painful stimuli today. Remains on mech vent, FiO2 35%. Tolerating tube feeding. Tmax 100.4. Patient developed A. fib with RVR the today requiring synchronous cardioversion with 200 J currently in sinus tachycardia. On Digoxin. WBC 14.2. Creatinine 1.30. No obvious signs of pain or anxiety- she remains unresponsive. No evidence of neurologic improvement. Discussed with nurse. . Family/friend interactions Spoke with daughterJitendra via phone. Medical update provided including no evidence of neurologic recovery, cardioversion this morning and pending decisions. I attempted to ask her about decision regarding trach/PEG vs transition to comfort with withdrawal of life support. She tells me her cousin, Cedric will be making arrangements to come to [place], not certain when. She asks if she can call me later. I told her the doctors are needing a decision regarding as she has been on mech vent since 05/07/17. She asks "if we can talk about this later and that she needs to talk to her family." She says she will call my cell later today after she talks to family. If she does not return my call I will call her again in the AM. Asked nurse to call her to reinforce need for a decision. . (Isadora Zhao) Advance Directives Living Will: Never completed Health Care Surrogate: Never completed Durable Power of Sales Representative Printing Paper: Never completed (Isadora Zhao) Advance Directive Specifics Health Care Surrogate(s): No written advanced directives. The patient is unmarried and has just one child , daughter Jitendra who lives in [place]. Patient is not capacitated and very unlikely to regain capacity for decision-making, According to [place] Statutes, health care proxy decision making falls to Jitendra Garcia. . Significant change in goals: Alternate Code: Intubation Only. Awaiting family decision regarding trach/PEG vs transition to comfort. Daughter supposed to return my call 05/18/17 evening after she speaks with family. . (Isadora Zhao) Objective Vital Signs Date Time Temp Pulse Resp B/P (MAP) Pulse Ox O2 Delivery O2 Flow Rate FiO2 05/18/17 11:55 100 35 05/18/17 08:30 100 35 05/18/17 06:00 171 05/18/17 04:10 100 35 05/18/17 04:00 35 05/18/17 04:00 98.9 101 16 172/71 (104) 100 05/18/17 04:00 100 05/18/17 02:00 97 05/18/17 00:13 100 35 05/18/17 00:00 98.7 92 16 149/67 (94) 100 05/18/17 00:00 35 05/18/17 00:00 90 05/17/17 22:00 84 05/17/17 21:45 92 35 05/17/17 20:00 81 05/17/17 20:00 100.4 115 16 204/88 (126) 98 05/17/17 20:00 35 05/17/17 17:09 99 35 05/17/17 16:30 100 16 152/69 (96) 97 05/17/17 16:01 100 16 155/67 (96) 99 05/17/17 16:00 100 16 98 05/17/17 16:00 35 Intake & Output 05/18/17 05/18/17 07:00 19:00 Intake Total 1522 ml 200 ml Output Total 1750 ml Balance -228 ml 200 ml Intake IV Total 631 ml 200 ml Tube Feeding 591 ml Other 300 ml Output Urine Total 1750 ml # Bowel Movements 2 Physical Exam CONSTITUTIONAL/GENERAL: This is an adequately nourished patient, on mech vent off all sedation. EYES: Pupils equal and round, questionable reaction to light. NECK: Trachea midline. CARDIOVASCULAR: Regular rate and rhythm without murmurs, gallops, or rubs. RESPIRATORY/CHEST: Unlabored respirations on the ventilator. Scattered rhonchi bilaterally. Thick oral secretions noted. GASTROINTESTINAL: Abdomen soft, nondistended, obese. Bowel sounds present. MUSCULOSKELETAL: Extremities edema. No mottling or clubbing. NEUROLOGICAL: Unresponsive to my voice or exam. Does not track or blink to threat. No withdraw to pain on extremities. PSYCHIATRIC: Unresponsive. . (Isadora Zhao) Diagnostic Tests Laboratory Laboratory Tests Test 05/15/17 19:51 05/16/17 06:53 05/17/17 17:44 05/18/17 06:34 White Blood Count 12.1 TH/MM3 (4.0-11.0) 13.7 TH/MM3 (4.0-11.0) Red Blood Count 3.27 MIL/MM3 (4.00-5.30) 3.23 MIL/MM3 (4.00-5.30) Hemoglobin 9.7 GM/DL (11.6-15.3) 9.8 GM/DL (11.6-15.3) Hematocrit 30.3 % (35.0-46.0) 30.4 % (35.0-46.0) Mean Corpuscular Volume 92.7 FL (80.0-100.0) 94.1 FL (80.0-100.0) Mean Corpuscular Hemoglobin 29.5 PG (27.0-34.0) 30.3 PG (27.0-34.0) Mean Corpuscular Hemoglobin Concent 31.8 % (32.0-36.0) 32.2 % (32.0-36.0) Red Cell Distribution Width 14.7 % (11.6-17.2) 14.8 % (11.6-17.2) Platelet Count 224 TH/MM3 (150-450) 222 TH/MM3 (150-450) Mean Platelet Volume 9.3 FL (7.0-11.0) 9.8 FL (7.0-11.0) Neutrophils (%) (Auto) 68.1 % (16.0-70.0) 72.7 % (16.0-70.0) Lymphocytes (%) (Auto) 15.8 % (9.0-44.0) 14.8 % (9.0-44.0) Monocytes (%) (Auto) 14.3 % (0.0-8.0) 11.4 % (0.0-8.0) Eosinophils (%) (Auto) 0.4 % (0.0-4.0) 0.4 % (0.0-4.0) Basophils (%) (Auto) 1.4 % (0.0-2.0) 0.7 % (0.0-2.0) Neutrophils # (Auto) 8.2 TH/MM3 (1.8-7.7) 9.9 TH/MM3 (1.8-7.7) Lymphocytes # (Auto) 1.9 TH/MM3 (1.0-4.8) 2.0 TH/MM3 (1.0-4.8) Monocytes # (Auto) 1.7 TH/MM3 (0-0.9) 1.6 TH/MM3 (0-0.9) Eosinophils # (Auto) 0.0 TH/MM3 (0-0.4) 0.1 TH/MM3 (0-0.4) Basophils # (Auto) 0.2 TH/MM3 (0-0.2) 0.1 TH/MM3 (0-0.2) CBC Comment DIFF FINAL DIFF FINAL Differential Comment Sodium Level 158 MEQ/L (136-145) 158 MEQ/L (136-145) 158 MEQ/L (136-145) 157 MEQ/L (136-145) Blood Urea Nitrogen 22 MG/DL (7-18) 20 MG/DL (7-18) 21 MG/DL (7-18) Creatinine 1.43 MG/DL (0.50-1.00) 1.26 MG/DL (0.50-1.00) 1.30 MG/DL (0.50-1.00) Random Glucose 275 MG/DL (74-106) 237 MG/DL (74-106) 258 MG/DL (74-106) Total Protein 6.7 GM/DL (6.4-8.2) 7.3 GM/DL (6.4-8.2) Albumin 2.0 GM/DL (3.4-5.0) 2.0 GM/DL (3.4-5.0) Calcium Level 8.3 MG/DL (8.5-10.1) 8.8 MG/DL (8.5-10.1) 9.1 MG/DL (8.5-10.1) Magnesium Level 2.3 MG/DL (1.5-2.5) 2.5 MG/DL (1.5-2.5) Alkaline Phosphatase 89 U/L (45-117) 93 U/L (45-117) Aspartate Amino Transf (AST/SGOT) 46 U/L (15-37) 47 U/L (15-37) Alanine Aminotransferase (ALT/SGPT) 54 U/L (10-53) 44 U/L (10-53) Total Bilirubin 0.3 MG/DL (0.2-1.0) 0.4 MG/DL (0.2-1.0) Potassium Level 3.4 MEQ/L (3.5-5.1) 3.4 MEQ/L (3.5-5.1) 3.7 MEQ/L (3.5-5.1) Chloride Level 125 MEQ/L (98-107) 124 MEQ/L (98-107) 123 MEQ/L (98-107) Carbon Dioxide Level 25.5 MEQ/L (21.0-32.0) 26.7 MEQ/L (21.0-32.0) 27.4 MEQ/L (21.0-32.0) Anion Gap 8 MEQ/L (5-15) 7 MEQ/L (5-15) 7 MEQ/L (5-15) Estimat Glomerular Filtration Rate 46 ML/MIN (>89) 53 ML/MIN (>89) 51 ML/MIN (>89) Phosphorus Level 2.4 MG/DL (2.5-4.9) Direct Bilirubin 0.1 MG/DL (0.0-0.2) Indirect Bilirubin 0.3 MG/DL (0.0-0.8) Vancomycin Level Trough 15.4 MCG/ML (5.0-10.0) Test 05/18/17 10:50 White Blood Count 14.2 TH/MM3 (4.0-11.0) Red Blood Count 3.26 MIL/MM3 (4.00-5.30) Hemoglobin 9.9 GM/DL (11.6-15.3) Hematocrit 30.9 % (35.0-46.0) Mean Corpuscular Volume 94.7 FL (80.0-100.0) Mean Corpuscular Hemoglobin 30.2 PG (27.0-34.0) Mean Corpuscular Hemoglobin Concent 31.9 % (32.0-36.0) Red Cell Distribution Width 14.7 % (11.6-17.2) Platelet Count 235 TH/MM3 (150-450) Mean Platelet Volume 10.8 FL (7.0-11.0) (Isadora Zhao) Result Diagram: 05/18/17 1050 05/18/17 0634 Microbiology Microbiology Date/Time Source Procedure Growth Status 05/14/17 11:30 Blood Peripheral Aerobic Blood Culture - Preliminary NO GROWTH IN 4 DAYS Resulted 05/14/17 11:30 Blood Peripheral Anaerobic Blood Culture - Preliminary NO GROWTH IN 4 DAYS Resulted 05/15/17 00:30 Sputum Endotracheal Gram Stain - Final Complete 05/15/17 00:30 Sputum Endotracheal Sputum Culture - Final HEAVY GROWTH NORMAL RESPIRATORY JORDEN Complete 05/14/17 21:45 Urine Catheterized Urine Urine Culture - Final Lucinda Albicans Complete . Imaging Last Impressions Chest X-Ray 05/18/17 0000 Signed Impressions: Service Date/Time: Thursday, May 18, 2017 08:14 - CONCLUSION: ET tube tip that the upper thoracic level. Increasing left lower lung consolidation. Obi Barnes MD Abdomen Ultrasound 05/07/17 0000 Signed Impressions: Service Date/Time: Sunday, May 07, 2017 14:19 - CONCLUSION: 1. Echogenic liver compatible with fatty infiltration or hepatocellular disease. 2. Cholecystectomy Laith Coe MD Head CT [id number]/06/172123 Signed Impressions: Service Date/Time: Sunday, May 07, 2017 03:14 - CONCLUSION: Normal examination. Noé Ybarra MD CT Angiography 05/06/17 0000 Signed Impressions: Service Date/Time: Sunday, May 07, 2017 03:21 - CONCLUSION: 1. No pulmonary embolus. 2. Bibasilar areas of consolidation or atelectasis being worse on the left. There are minimal bilateral pleural effusions. Noé Ybarra MD . Procedures * 05/07/17 - Intubation * 05/07 - Bilateral femoral arterial lines and left femoral heat exchange catheter . (Isadora Zhao) Assessment and Plan Disease Oriented Problem List: (1) anoxic brain injury, severe encephalopathy (2) PEA cardiac arrest 05/06/17 (3) respiratory failure s/p cardiac arrest and resuscitation (4) transaminitis, likely due to hypoxic insult (5) history of CHF, ejection fraction 15-20% in 2014 (6) acute kidney injury (7) coronary artery disease, moderate disease on cath in 2014 (8) insulin-dependent diabetes (9) COPD, moderate (10) history of seizure disorder (11) unspecified but significant psychiatric illness, disabling (12) depression (13) hyperlipidemia (14) hypertension (15) GERD (16) chronic back pain (17) peripheral neuropathy (18) anxiety Symptom Scale: (1) anxiety 0-10 Scale: Unable to quantify (2) dyspnea 0-10 Scale: Unable to quantify (3) encephalopathy 0-10 Scale: Unable to quantify Pertinent Non-Medical Issues Psychosocial: Unmarried, 1 daughter in [place], disabled via psychiatric diagnoses for many years. Was living alone. Spiritual: Unaffiliated confucianism Legal: The patient is unmarried and has just one child, katarina Edward in [place]. The patient is very unlikely to regain capacity for decision-making, so Patty Lozano is the proxy decision-maker. Ethical issues impacting care: None. . Important Contacts Patient's daughter/HCP Cheyanne Garcia [phone] . Prognosis The patient's prognosis is extremely poor. She has underlying moderate or severe pulmonary and cardiac disease, and now has an apparent significant anoxic brain injury. . Code Status: Alternative Code (intubation only) Plan * ALTERNATE CODE, intubation only per request of daughter 05/10/17 * DECISION-MAKING: No written advanced directives. The patient is unmarried and has just one child, katarina Ham who lives in [place]. Patient is not capacitated and very unlikely to regain capacity for decision-making, According to [place] Statutes, health care proxy decision making falls to Jitendra Garcia. * GOALS: Spoke with daughterJitendra via phone. Medical update provided including no evidence of neurologic recovery, cardioversion this morning and pending decisions. I attempted to ask her about decision regarding trach/PEG vs transition to comfort with withdrawal of life support. She tells me her cousin, Cedric will be making arrangements to come to [place], not certain when. She asks if she can call me later. I told her the doctors are needing a decision regarding as [facility]. She asks "if we can talk about this later and that she needs to talk to her family." She says she will call my cell later today after she talks to family. If she does not return my call I will call her again in the AM. Asked nurse to call her to reinforce need for a decision. * I also asked Jitendra if she wanted to change the PIN number as she had told a nurse on 05/17/17 she didn't want complete information to a family member who had the PIN number. I explained if they have a PIN we will answer all questions. I offered to change the PIN number she declined. * SYMPTOMS: No evidence of pain, dyspnea, anxiety at this time. No seizures noted. Encephalopathy: due to anoxic brain injury, seizure, no evidence of neurologic recovery. No new medication recommendations at this time. * Palliative Care will continue to follow the patient during this hospitalization. . (Isadora Zhao) Attestation To help prompt me to consider important information that might be impacting today's encounter and assessment, information from prior notes written by myself or my colleagues may have been "brought forward" into today's note. My signature on this note, however, is an attestation that I personally performed the exam, history, and/or decision-making noted today, and, unless otherwise indicated, the interactions with patient, family, and staff as well as the review of records all occurred today. I also attest that the listed assessment and stated plan reflect my best clinical judgment today based on the combination of historical information, prior notes, and today's exam/ interactions. When time spent is documented, it refers only to time spent today by the signer, or if indicated, combined time spent today by collaborating physician/nurse practitioner. (Isadora Zhao) Collaborating MD Comments Chart reviewed. Case discussed with palliative care CREW MESS ATTENDANT. Above note reviewed and I concur. . (Zachariah Marie MD) Isadora Zhao May 18, 2017 14:49 Zachariah Marie MD May 19, 2017 17:23
[2017-05-18] MEDS: D5W + KCL 20 MEQ INJ 1,000 ML IV SCH (15:05)
[2017-05-18] MEDS: GABAPENTIN 250 MG/5 ML UDC NG SCH (19:46)
[2017-05-18] MEDS: DESMOPRESSIN ACETATE 4 MCG/ML VIAL SQ SCH (19:48)
[2017-05-19] VITALS (21 sets, daily range): BP systolic 150–184; BP diastolic 70–81; PULSE 79–95; RESP 16–21; TEMP 99–99.8; O2SAT 98–100
[2017-05-19] MEDS: INSULIN ASPART SUPPLEMENTAL SCALE SQ SCH ×6 (00:30→22:59)
[2017-05-19] MEDS: RESP: ALBUTEROL 2.5 MG/IPRATROPIUM 0.5 MG NEB (SCH) INH ×4 (03:19→20:14)
[2017-05-19] MEDS: D5W + KCL 20 MEQ INJ 1,000 ML IV SCH (03:45)
[2017-05-19] MEDS: CHLORHEXIDINE GLUCONATE 2 % 1 PACK (2 CLOTHS) TOP SCH (03:46)
[2017-05-19] MEDS: PIPERACIL-TAZO 3.375 GM PREMIX 50 ML IV SCH ×4 (03:46→22:57)
[2017-05-19] MEDS: HEPARIN SODIUM - SQ 10,000 UNITS/ML VIAL SQ SCH ×2 (03:46→16:13)
[2017-05-19] MEDS: DILTIAZEM INJ 125 MG in SODIUM CHLORIDE 0.9% INJ 100 ML IV PRN (03:47)
[2017-05-19] MEDS: FREE WATER G-TUBE SCH ×7 (03:49→23:40)
[2017-05-19] MEDS: DOCUSATE SODIUM 50 MG/SENNA 8.6 MG TAB PO SCH ×2 (07:31→21:00)
[2017-05-19] MEDS: VALPROIC ACID SYRUP 250 MG/5 ML UDC NG SCH ×2 (08:17→22:58)
[2017-05-19] MEDS: CARVEDILOL 12.5 MG TAB PO SCH ×2 (08:17→22:58)
[2017-05-19] MEDS: SODIUM CHLORIDE 0.9% FLUSH 10 ML FLUSH IV FLUSH SCH ×2 (08:17→22:58)
[2017-05-19] MEDS: levETIRAcetam 500 MG/5 ML UDC NG SCH ×2 (08:17→22:56)
[2017-05-19] MEDS: FAMOTIDINE 20 MG TAB NG SCH (08:18)
[2017-05-19] MEDS: ASPIRIN EC 81 MG TABEC PO SCH (08:18)
[2017-05-19] MEDS: DESMOPRESSIN ACETATE 4 MCG/ML VIAL SQ SCH ×2 (08:18→23:04)
[2017-05-19] MEDS: ARTIFICIAL TEARS OPTH OINT 3.5 APPLIC/3.5 GM TUBO EACH EYE SCH ×2 (08:41→22:58)
[2017-05-19] MEDS: LACTULOSE SYRUP 20 GM/30 ML CUP OG-TUBE SCH (09:00)
[2017-05-19 09:23] LABS: AUTOMATED NEUTROPHIL # 15.5 TH/MM3 (1.8-7.7); BASOPHIL # 0.3 TH/MM3 (0-0.2); BASOPHIL % 1.4 % (0.0-2.0); EOSINOPHIL # 0.3 TH/MM3 (0-0.4); EOSINOPHIL % 1.7 % (0.0-4.0); HEMATOCRIT 28.9 % (35.0-46.0); HEMO FLAGS AUTO DIFF; LYMPH % 8.3 % (9.0-44.0); LYMPHOCYTE # 1.5 TH/MM3 (1.0-4.8); MEAN CELL VOLUME 94.1 FL (80.0-100.0); MEAN CORPUSCULAR HEMOGLOBIN 30.7 PG (27.0-34.0); MEAN CORPUSCULAR HGB CONC 32.6 % (32.0-36.0); MONO % 4.8 % (0.0-8.0); NEUT % 83.8 % (16.0-70.0); PLATELET COUNT 255 TH/MM3 (150-450); RED BLOOD COUNT 3.07 MIL/MM3 (4.00-5.30); RED CELL DISTRIBUTION WIDTH 14.7 % (11.6-17.2); WHITE BLOOD COUNT 18.5 TH/MM3 (4.0-11.0)
[2017-05-19 10:06] LABS: ALKALINE PHOSPHATASE 83 U/L (45-117); ALT (GPT) 33 U/L (10-53); ANION GAP 8 MEQ/L (5-15); AST (GOT) 29 U/L (15-37); BLOOD UREA NITROGEN 21 MG/DL (7-18); CHLORIDE 124 MEQ/L (98-107); DIGOXIN 0.6 NG/ML (0.8-2.0); GLOMERULAR FILTRATION RATE 47 ML/MIN (>89); MAGNESIUM 2.7 MG/DL (1.5-2.5); POTASSIUM 3.4 MEQ/L (3.5-5.1); TOTAL BILIRUBIN ADULT 0.4 MG/DL (0.2-1.0)
[2017-05-19 10:19] LABS: SODIUM (NA) 158 MEQ/L (136-145)
[2017-05-19] MEDS: VANCOMYCIN 1,500 MG/NS 500 ML IV SCH ×2 (11:43)
[2017-05-19] MEDS: CHLORHEXIDINE 0.12% (ORAL KIT) 15 ML CUP MT SCH ×2 (12:03→22:59)
[2017-05-19 12:34] LABS: BANDS 16 % (0-6); EOSINOPHILS 1 % (0-4); NEUTROPHIL # MANUAL DIFF 16.1 TH/MM3 (1.8-7.7); POLYS (SEG NEUTROPHILS) 71 % (16-70); WBC DIFF SAMPLE 100
[2017-05-19 12:35] LABS: PLATELET ESTIMATE SMEAR NORMAL (NORMAL); PLATELET MORPHOLOGY NORMAL (NORMAL); SCAN/DIFF FINAL DIFF MANUAL
--- NOTE | 2017-05-19 12:51 | HHI.HCPN ---
Reason for visit a. To assist with evaluation and management of symptoms including: Encephalopathy. b. To assist medical decision maker(s) with: better understanding of current medical conditions; weighing benefits/burdens of medical treatment options; making medical treatment decisions. . (Isadora Zhao) Subjective/Interval History Patient seen and examined in ICU. No family at bedside. The patient remains unresponsive off sedation. Opens eyes, does not track or blink to threat. No response to painful stimuli today. Remains on mech vent, FiO2 35%. Tolerating tube feeding. Tmax 99.2. Vital signs stable. WBC 18.5, hemoglobin 9.4, hematocrit 28.9, platelets 255. Creatinine 1.39. Albumin 1.8. No new imaging. No obvious signs of pain or anxiety- she remains unresponsive. No evidence of neurologic improvement. Discussed with nurse. . Family/friend interactions Call from daughterJitendra on 05/18/17 at 10pm. She was upset asking about why we need an answer regarding trach/PEG. She verbalizes understanding and states she feels better after talking to me. I reviewed again options of continued life support with need for trach/PEG vs transition to comfort measures. She asks many questions and then says "Okay thank you" and hangs up. 05/19/17 12:38pm: Spoke with daughter Jitendra via phone. She is remains ambivalent regarding decision of trach/PEG vs comfort/ withdrawal of life support. She is asking questions about arrangements. I explained medical team will be expecting a decision and may be calling in the next 24 hours regarding trach/PEG decision. She says again family will be talking tonight. . (Isadora Zhao) Advance Directives Living Will: Never completed Health Care Surrogate: Never completed Durable Power of Underwriting Sales Representative: Never completed (Isadora Zhao) Advance Directive Specifics Health Care Surrogate(s): No written advanced directives. The patient is unmarried and has just one child , daughter Jitendra who lives in [place]. Patient is not capacitated and very unlikely to regain capacity for decision-making, According to [place] Statutes, health care proxy decision making falls to [place] Jose. . Significant change in goals: Alternate Code: Intubation Only. Daughter remains ambivalent regarding trach/ PEG vs comfort. . (Isadora Zhao) Objective Vital Signs Date Time Temp Pulse Resp B/P (MAP) Pulse Ox O2 Delivery O2 Flow Rate FiO2 05/19/17 11:18 100 35 05/19/17 10:00 79 05/19/17 08:33 100 35 05/19/17 08:00 90 05/19/17 08:00 99.2 90 21 160/72 (101) 100 05/19/17 06:00 91 05/19/17 04:09 99 35 05/19/17 04:00 99.0 95 16 184/81 (115) 98 05/19/17 04:00 35 05/19/17 04:00 94 05/19/17 03:47 92 173/81 05/19/17 02:00 91 05/19/17 00:07 100 35 05/19/17 00:00 99.0 80 16 150/70 (96) 99 05/19/17 00:00 35 05/19/17 00:00 82 05/18/17 22:00 79 05/18/17 20:36 100 35 05/18/17 20:00 35 05/18/17 20:00 80 05/18/17 20:00 99.0 95 18 187/83 (117) 100 05/18/17 18:00 85 05/18/17 17:45 85 05/18/17 17:30 94 05/18/17 17:15 91 05/18/17 17:11 85 17 163/69 (100) 05/18/17 17:11 85 05/18/17 17:00 86 05/18/17 16:45 84 05/18/17 16:30 83 05/18/17 16:15 84 05/18/17 16:00 86 05/18/17 16:00 86 17 97 05/18/17 16:00 35 05/18/17 15:07 99 35 05/18/17 14:00 86 05/18/17 14:00 86 16 100 05/18/17 12:36 83 05/18/17 12:36 83 16 151/75 (100) 99 Intake & Output 05/19/17 05/19/17 07:00 19:00 Intake Total 817 ml Output Total 650 ml 1150 ml Balance 167 ml -1150 ml Intake IV Total 100 ml Tube Feeding 457 ml Other 260 ml Output Urine Total 650 ml 1150 ml # Bowel Movements 3 Physical Exam CONSTITUTIONAL/GENERAL: This is an adequately nourished patient, on mech vent off all sedation. EYES: Pupils equal and round, questionable reaction to light. CARDIOVASCULAR: Regular rate and rhythm without murmurs, gallops, or rubs. RESPIRATORY/CHEST: Unlabored respirations on the ventilator. Scattered rhonchi bilaterally. Thick oral secretions noted. GASTROINTESTINAL: Abdomen soft, nondistended, obese. Bowel sounds present. MUSCULOSKELETAL: Extremities edema. No mottling or clubbing. NEUROLOGICAL: Unresponsive to my voice or exam. Does not track or blink to threat. No withdraw to pain on extremities. PSYCHIATRIC: Unresponsive. . (Isadora Zhao) Diagnostic Tests Laboratory Laboratory Tests Test 05/17/17 17:44 05/18/17 06:34 05/18/17 10:50 05/19/17 07:27 Blood Urea Nitrogen 20 MG/DL (7-18) 21 MG/DL (7-18) 21 MG/DL (7-18) Creatinine 1.26 MG/DL (0.50-1.00) 1.30 MG/DL (0.50-1.00) 1.39 MG/DL (0.50-1.00) Random Glucose 237 MG/DL (74-106) 258 MG/DL (74-106) 225 MG/DL (74-106) Calcium Level 8.8 MG/DL (8.5-10.1) 9.1 MG/DL (8.5-10.1) 9.6 MG/DL (8.5-10.1) Sodium Level 158 MEQ/L (136-145) 157 MEQ/L (136-145) 158 MEQ/L (136-145) Potassium Level 3.4 MEQ/L (3.5-5.1) 3.7 MEQ/L (3.5-5.1) 3.4 MEQ/L (3.5-5.1) Chloride Level 124 MEQ/L (98-107) 123 MEQ/L (98-107) 124 MEQ/L (98-107) Carbon Dioxide Level 26.7 MEQ/L (21.0-32.0) 27.4 MEQ/L (21.0-32.0) 26.0 MEQ/L (21.0-32.0) Anion Gap 7 MEQ/L (5-15) 7 MEQ/L (5-15) 8 MEQ/L (5-15) Estimat Glomerular Filtration Rate 53 ML/MIN (>89) 51 ML/MIN (>89) 47 ML/MIN (>89) Phosphorus Level 2.4 MG/DL (2.5-4.9) 2.5 MG/DL (2.5-4.9) Magnesium Level 2.5 MG/DL (1.5-2.5) 2.7 MG/DL (1.5-2.5) Total Bilirubin 0.4 MG/DL (0.2-1.0) 0.4 MG/DL (0.2-1.0) Direct Bilirubin 0.1 MG/DL (0.0-0.2) Indirect Bilirubin 0.3 MG/DL (0.0-0.8) Aspartate Amino Transf (AST/SGOT) 47 U/L (15-37) 29 U/L (15-37) Alanine Aminotransferase (ALT/SGPT) 44 U/L (10-53) 33 U/L (10-53) Alkaline Phosphatase 93 U/L (45-117) 83 U/L (45-117) Total Protein 7.3 GM/DL (6.4-8.2) 6.9 GM/DL (6.4-8.2) Albumin 2.0 GM/DL (3.4-5.0) 1.8 GM/DL (3.4-5.0) Vancomycin Level Trough 15.4 MCG/ML (5.0-10.0) White Blood Count 14.2 TH/MM3 (4.0-11.0) Red Blood Count 3.26 MIL/MM3 (4.00-5.30) Hemoglobin 9.9 GM/DL (11.6-15.3) Hematocrit 30.9 % (35.0-46.0) Mean Corpuscular Volume 94.7 FL (80.0-100.0) Mean Corpuscular Hemoglobin 30.2 PG (27.0-34.0) Mean Corpuscular Hemoglobin Concent 31.9 % (32.0-36.0) Red Cell Distribution Width 14.7 % (11.6-17.2) Platelet Count 235 TH/MM3 (150-450) Mean Platelet Volume 10.8 FL (7.0-11.0) Digoxin Level 0.6 NG/ML (0.8-2.0) Test 05/19/17 07:30 White Blood Count 18.5 TH/MM3 (4.0-11.0) Red Blood Count 3.07 MIL/MM3 (4.00-5.30) Hemoglobin 9.4 GM/DL (11.6-15.3) Hematocrit 28.9 % (35.0-46.0) Mean Corpuscular Volume 94.1 FL (80.0-100.0) Mean Corpuscular Hemoglobin 30.7 PG (27.0-34.0) Mean Corpuscular Hemoglobin Concent 32.6 % (32.0-36.0) Red Cell Distribution Width 14.7 % (11.6-17.2) Platelet Count 255 TH/MM3 (150-450) Mean Platelet Volume 10.9 FL (7.0-11.0) Neutrophils (%) (Auto) 83.8 % (16.0-70.0) Lymphocytes (%) (Auto) 8.3 % (9.0-44.0) Monocytes (%) (Auto) 4.8 % (0.0-8.0) Eosinophils (%) (Auto) 1.7 % (0.0-4.0) Basophils (%) (Auto) 1.4 % (0.0-2.0) Neutrophils # (Auto) 15.5 TH/MM3 (1.8-7.7) Lymphocytes # (Auto) 1.5 TH/MM3 (1.0-4.8) Monocytes # (Auto) 0.9 TH/MM3 (0-0.9) Eosinophils # (Auto) 0.3 TH/MM3 (0-0.4) Basophils # (Auto) 0.3 TH/MM3 (0-0.2) CBC Comment AUTO DIFF Differential Comment Hematology Comments (Isadora Zhao) Result Diagram: 05/19/17 0730 05/19/17 0727 Microbiology Microbiology Date/Time Source Procedure Growth Status 05/14/17 11:30 Blood Peripheral Aerobic Blood Culture - Final NO GROWTH IN 5 DAYS Complete 05/14/17 11:30 Blood Peripheral Anaerobic Blood Culture - Final NO GROWTH IN 5 DAYS Complete 05/15/17 00:30 Sputum Endotracheal Gram Stain - Final Complete 05/15/17 00:30 Sputum Endotracheal Sputum Culture - Final HEAVY GROWTH NORMAL RESPIRATORY JORDEN Complete 05/14/17 21:45 Urine Catheterized Urine Urine Culture - Final Lucinda Albicans Complete Imaging Last Impressions Chest X-Ray 05/18/17 0000 Signed Impressions: Service Date/Time: Thursday, May 18, 2017 08:14 - CONCLUSION: ET tube tip that the upper thoracic level. Increasing left lower lung consolidation. Obi Barnes MD Abdomen Ultrasound 05/07/17 0000 Signed Impressions: Service Date/Time: Sunday, May 07, 2017 14:19 - CONCLUSION: 1. Echogenic liver compatible with fatty infiltration or hepatocellular disease. 2. Cholecystectomy Laith Coe MD Head CT [id number]/06/[id number] Signed Impressions: Service Date/Time: Sunday, May 07, 2017 03:14 - CONCLUSION: Normal examination. Noé Ybarra MD CT Angiography 05/06/17 0000 Signed Impressions: Service Date/Time: Sunday, May 07, 2017 03:21 - CONCLUSION: 1. No pulmonary embolus. 2. Bibasilar areas of consolidation or atelectasis being worse on the left. There are minimal bilateral pleural effusions. Noé Ybarra MD Procedures * 05/07/17 - Intubation * 05/07 - Bilateral femoral arterial lines and left femoral heat exchange catheter . (Isadora Zhao) Assessment and Plan Disease Oriented Problem List: (1) anoxic brain injury, severe encephalopathy (2) PEA cardiac arrest 05/06/17 (3) respiratory failure s/p cardiac arrest and resuscitation (4) transaminitis, likely due to hypoxic insult (5) history of CHF, ejection fraction 15-20% in 2013 (6) acute kidney injury (7) coronary artery disease, moderate disease on cath in 2014 (8) insulin-dependent diabetes (9) COPD, moderate (10) history of seizure disorder (11) unspecified but significant psychiatric illness, disabling (12) depression (13) hyperlipidemia (14) hypertension (15) GERD (16) chronic back pain (17) peripheral neuropathy (18) anxiety Symptom Scale: (1) anxiety 0-10 Scale: Unable to quantify (2) dyspnea 0-10 Scale: Unable to quantify (3) encephalopathy 0-10 Scale: Unable to quantify Pertinent Non-Medical Issues Psychosocial: Unmarried, 1 daughter in [place], disabled via psychiatric diagnoses for many years. Was living alone. Spiritual: Unaffiliated episcopalian Legal: The patient is unmarried and has just one child, katarina Edward in [place]. The patient is very unlikely to regain capacity for decision-making, so Patty Lozano is the proxy decision-maker. Ethical issues impacting care: None. . Important Contacts Patient's daughter/HCP Cheyanne Garcia [phone] . Prognosis The patient's prognosis is extremely poor. She has underlying moderate or severe pulmonary and cardiac disease, and now has an apparent significant anoxic brain injury. . Code Status: Alternative Code (intubation only) Plan * ALTERNATE CODE, intubation only per request of daughter 05/10/17. * DECISION-MAKING: No written advanced directives. The patient is unmarried and has just one child, daughter Jitendra who lives in [place]. Patient is not capacitated and very unlikely to regain capacity for decision-making, According to [place] Statutes, health care proxy decision making falls to Jitendra Garcia. * GOALS: 05/19/17 12:38pm: Spoke with daughter Jitendra via phone. She is remains ambivalent regarding decision of trach/PEG vs comfort/ withdrawal of life support. She is asking questions about arrangements. She says again family will be talking tonight. I explained medical team will be expecting a decision and may be calling in the next 24 hours regarding trach/PEG decision, I recommend team contact daughter to obtain consent for trach and PEG in effort to determine her decision. * SYMPTOMS: No evidence of pain, dyspnea, anxiety at this time. No seizures noted. Encephalopathy: due to anoxic brain injury, seizure, no evidence of neurologic recovery. No new medication recommendations at this time. * Palliative Care will continue to follow the patient during this hospitalization. . (Isadora Zhao) Attestation To help prompt me to consider important information that might be impacting today's encounter and assessment, information from prior notes written by myself or my colleagues may have been "brought forward" into today's note. My signature on this note, however, is an attestation that I personally performed the exam, history, and/or decision-making noted today, and, unless otherwise indicated, the interactions with patient, family, and staff as well as the review of records all occurred today. I also attest that the listed assessment and stated plan reflect my best clinical judgment today based on the combination of historical information, prior notes, and today's exam/ interactions. When time spent is documented, it refers only to time spent today by the signer, or if indicated, combined time spent today by collaborating physician/nurse practitioner. (Isadora Zhao) Collaborating MD Comments Chart reviewed. Case discussed with palliative care LIBRARY SERVICES ASSISTANT. Above LIBRARY SERVICES ASSISTANT note reviewed and I concur. . (Zachariah Marie MD) Isadora Zhao May 19, 2017 12:51 Zachariah Marie MD May 19, 2017 17:38
--- NOTE | 2017-05-19 13:09 | HHI.CCPN ---
Subjective Remarks/Hospital Course 56-year-old female with past medical history of hypertension, chronic systolic heart failure, diabetes, COPD bipolar disorder, seizure disorder who presented to [facility] emergency department via [facility] following cardiac arrest. [facility] was originally called for shortness of breath and when they arrived patient was unresponsive and in PEA. Combitube was placed. CPR was initiated and patient was administered epinephrine 4, 1 amp bicarbonate, Narcan 2 mg prior to arrival via left tibial I/O. Blood glucose was 334. Exact duration of prehospital CPR is unclear. Combitube was removed and she was intubated upon arrival. Patient had ROSC 5 minutes after arrival. She received additional epinephrine 2 in the ED. She also received 1 L normal saline bolus, vancomycin, Zosyn in the ED. Critical care medicine is consulted for admission. EKG has no acute ischemia. SUBJ 05/07: Intubated sedated neuromuscularly paralyzed. Induced hypothermia initiated at 7 AM, 2-D echo shows EF 25-30%, mild to moderate MR. Serial troponins negative 05/08: Remains neuromuscularly paralyzed. Hypothermia will be completed by the known and rewarming was started. Remains off inotropes and pressors 05/09: Hypothermia protocol completed, placed overnight on Versed also in addition to propofol and fentanyl for tachycardia and asynchrony. Currently patient while on sedation do not open eyes with very slight withdrawal to pain 05/10: Developed Afib with RVR yesterday with HR in 200's DC cardioverted at night by Dr. Chu. Placed back on Versed. RN reports paroxysmal A fib. EEG pending at this time for subclinical sz. EEG 05/07 burst suppression pattern. Neuro prognosis poor 05/11: No neuro improvement. Creat worsening, nephrology consulted. EEG severe encephalopathy consistent with anoxic injury. Palliative care is following 05/12: There had been no improvement in neuro status after completion of code cool approximately 4 days ago. Patient has not shown not seen any signs of improvement. Palliative care met with family. Patient is developing multiorgan dysfunction syndrome. Daughter wants withdrawal of life support but wants to wait until some other family members can visit from [place] 05/13: No meaningful recovery yet. Opens eyes partially to pain. Weakly withdraws all extremities to pain. UO 1.8L in 24 hours. Family considering withdrawal of life support today, considering comorbidities and poor neuro recovery after cooling 05/14: Eyes are spontaneously open but with upward gaze. No tracking no response to threat. Withdraws bilateral upper extremity to pain. Had been off sedation more than 4 days 05/15: Neuro exam remains unchanged, even less eye-opening and withdrawal. Fever up to 103.5. Pancultured. Continue on vancomycin and Zosyn until cultures are back. 05/16: no improvements or changes to mental status. persistent encephalopathy. poor prognosis. family wants to wait until other family can be present. palliative care clarifying goals. 05/17: no changes to poor mental status. still awaiting family. hypernatremia worsening. nephrology following. Cr improving though; ahsan post-ATN diuresis. 05/18: Tmax 98.9. Positive gag. Positive corneal reflex. Blinks. Does not withdraw to pain. Went to A. fib with RVR the today requiring synchronous cardioversion with 200 J currently in sinus tachycardia. Given digoxin 0.5 mg IV now. Subjective 05/19: Afebrile. Has not brain injury. Daughter yesterday she says she was the patient trach and PEG. Started on desmopressin per nephrology yesterday. Sodium still remains elevated. Objective Vital Signs Date Time Temp Pulse Resp B/P (MAP) Pulse Ox O2 Delivery O2 Flow Rate FiO2 05/19/17 11:18 100 35 05/19/17 10:00 79 05/19/17 08:00 99.2 21 160/72 (101) Intake and Output 05/19/17 05/19/17 05/20/17 08:00 16:00 00:00 Intake Total 717 ml Output Total 1800 ml Balance -1083 ml Result Diagram: 05/19/17 0730 05/19/17 0727 Other Results Microbiology Date/Time Source Procedure Growth Status 05/14/17 11:30 Blood Peripheral Aerobic Blood Culture - Final NO GROWTH IN 5 DAYS Complete 05/14/17 11:30 Blood Peripheral Anaerobic Blood Culture - Final NO GROWTH IN 5 DAYS Complete 05/15/17 00:30 Sputum Endotracheal Gram Stain - Final Complete 05/15/17 00:30 Sputum Endotracheal Sputum Culture - Final HEAVY GROWTH NORMAL RESPIRATORY JORDEN Complete 05/14/17 21:45 Urine Catheterized Urine Urine Culture - Final Lucinda Albicans Complete Imaging Last Impressions Chest X-Ray 05/18/17 0000 Signed Impressions: Service Date/Time: Thursday, May 18, 2017 08:14 - CONCLUSION: ET tube tip that the upper thoracic level. Increasing left lower lung consolidation. Obi Barnes MD Abdomen Ultrasound 05/07/17 0000 Signed Impressions: Service Date/Time: Sunday, May 07, 2017 14:19 - CONCLUSION: 1. Echogenic liver compatible with fatty infiltration or hepatocellular disease. 2. Cholecystectomy Laith Coe MD Head CT 05/06/172123 Signed Impressions: Service Date/Time: Sunday, May 07, 2017 03:14 - CONCLUSION: Normal examination. Noé Ybarra MD CT Angiography 05/06/17 0000 Signed Impressions: Service Date/Time: Sunday, May 07, 2017 03:21 - CONCLUSION: 1. No pulmonary embolus. 2. Bibasilar areas of consolidation or atelectasis being worse on the left. There are minimal bilateral pleural effusions. Noé Ybarra MD Objective Remarks GENERAL: 56-year-old female who is intubated, critically ill and unresponsive SKIN: Warm and dry. Well perfused HEAD: Atraumatic. Normocephalic. EYES: Bilateral exophthalmus. Pupils equal and round, reactive around 4 mm bilaterally. Positive corneal reflex ENT: No nasal bleeding or discharge. Orotracheally intubated NECK: Trachea midline. No JVD appreciated. No meningismus CARDIOVASCULAR: Tachycardic, RR. S1, S2. No S4. 2/6 diastolic murmur RESPIRATORY: full mechanical support. fio2 35%. equal chest rise. GASTROINTESTINAL: Abdomen protuberant soft. No appreciable tenderness , rebound or guarding. Hypoactive bowel sounds : Benoit catheter is in place MUSCULOSKELETAL: Extremities without significant peripheral edema NEUROLOGICAL: Blinks.. Minimal partial eye opening to pain. Slight withdrawal to pain in all 4 ext upper extremities more than lower. Pupils as above. Positive gag. A/P Problem List: (1) Cardiac arrest ICD Code: I46.9 - Cardiac arrest, cause unspecified (2) Anoxic-ischemic encephalopathy ICD Code: G93.1 - Anoxic brain damage, not elsewhere classified; I67.82 - Cerebral ischemia (3) Chronic systolic heart failure ICD Code: I50.22 - Chronic systolic (congestive) heart failure Status: Chronic (4) Exophthalmos of both eyes ICD Code: H05.20 - Unspecified exophthalmos Status: Chronic (5) HTN (hypertension) ICD Code: I10 - Essential (primary) hypertension Status: Chronic (6) HLD (hyperlipidemia) ICD Code: E78.5 - Hyperlipidemia, unspecified Status: Chronic (7) Cardiogenic shock ICD Code: R57.0 - Cardiogenic shock Status: Acute (8) Acute respiratory failure with hypercapnia ICD Code: J96.02 - Acute respiratory failure with hypercapnia Status: Acute (9) Obesity (BMI 30-39.9) ICD Code: E66.9 - Obesity, unspecified Status: Chronic (10) CHF (congestive heart failure) ICD Code: I50.9 - CHF (congestive heart failure) Status: Acute (11) Bipolar disorder ICD Code: F31.9 - Bipolar affective disorder Status: Chronic (12) COPD (chronic obstructive pulmonary disease) ICD Code: J44.9 - Chronic obstructive pulmonary disease Status: Chronic (13) Tobacco abuse ICD Code: Z72.0 - Tobacco use Status: Chronic Assessment and Plan NEURO/PSYCH: Acute anoxic encephalopathy, severe Bipolar disorder Exophthalmus Status post completion of induced therapeutic hypothermia. initiated at 0700 , completed 05/08/17. Off sedation more than 7 days No neurologic improvement yet, prognosis poor. Neurology Dr. Solitario. CT brain - negative. Depakote level. 48. Was on Depakote for bipolar. restarted Depakote at 250 twice a day 500 daily at home Lactulose 30 daily. Ammonia level down to 31. Neg urine drug screen, APAP, ASA level. Resumed gabapentin 100 milligrams at night. Holding bupropion 150 mg daily EEG shows severe encephalopathy, burst suppression pattern. Repeat EEG severe encephalopathy RESP: Acute hypercapnic respiratory failure COPD Tobacco abuse ACV tidal volume 16/550/5/35. Ventilator bundle. Albuterol/ipratropium aerosols q6 hours. Albuterol q2 hours prn. No Wheezing No Vent weaning until mental status improved CV: PEA cardiac arrest Post cardiac arrest syndrome with shock (resolved) Afib with RVR Chronic systolic heart failure with ejection fraction 15-20% (25-30 on echo) Nonobstructive Coronary artery disease Essential Hypertension, uncontrolled Hyperlipidemia Holding valsartan 160 mg due to acute kidney injury. Carvedilol 12.5 mg twice a day increased to 25 mg twice a day and amlodipine 10 mg daily. use IV Hydralazine and labetalol PRN for SBP >170. DCCV for Afib RVR with HR 200/min. 2. Second time 05/18 Continue Cardizem for paroxysmal A fib and digoxin 0.125 mg daily EKG normal sinus rhythm rate of 99. No apparent acute ischemia. Follow-up serial EKGs and cardiac markers-negative. 2-D echo EF 25-30%. Cardiology Dr. Early Etiology of cardiac arrest unclear. Most likely due to hypercapnia and respiratory acidosis Continue aspirin 81 mg daily. Holding statin simvastatin 40 mg daily due to elevated LFTs. GI: GERD Transaminitis, probable ischemic hepatopathy. Orogastric tube. RUQ us-fatty liver, hepatitis panel negative Tube feeds with Glucerna currently at 45 cc an hour Famotidine for GI prophylaxis Docusate sodium/senna twice a day for bowel regimen FEN/RENAL: MARQUEZ Lactic acidemia Hypernatremia Benoit in place. Monitor intake and output. Monitor electrolytes and replace as indicated. Hold home NSAID's. Creat improved today Nephrology consult for worsening creatinine. Dr. Hughes following. Nonoliguric renal failure Currently on D5 water with 20 KCl at 70 cc an hour. Free water 300 cc every 4 hours. Recheck sodium in AM. ID: High fever, sepsis Candiduria Bacteremia with strep viridans, Coag neg staph, pleomorphic GPR Received piperacillin/tazobactam and vancomycin in the emergency department. Continue piperacillin/tazobactam and vancomycin Blood cultures 05/06 with strep radius, coag negative staph and pleomorphic gram -positive rods. Urine culture 05/03 with Lucinda albicans HEME: No acute hematologic issues. ENDO: Diabetes mellitus with acute hyperglycemia Hold metformin 1000 mg twice a day, glipizide 5 mg twice a day, insulin glargine 24 units daily. SSI Novulog every 4 hours/low Thyroid studies-essentially euthyroid PROPH: Sq heparin for DVT prophylaxis. Famotidine for stress ulcer prophylaxis and history of GERD ACCESS: Peripheral IV. Central line if indicated. ALT CODE. Palliative care following. Prognosis appears very poor. Now with multiorgan failure. Daughter may withdraw active life support once family members from [place] can visit. D/W Dr. Adhikari. No final decision has been made by family Level II follow-up Problem Qualifiers (1) HTN (hypertension): Qualified Codes: I10 - Essential (primary) hypertension Oscar Owen MD May 19, 2017 13:09
[2017-05-19] MEDS ORDERED: CLEVIDIPINE INJ 50 ML IV PRN (13:15)
[2017-05-19] MEDS ORDERED: LABETALOL HCL 100 MG/20 ML VIAL IV PRN (13:15)
--- NOTE | 2017-05-19 13:40 | PD.CARD.PN ---
Subjective Subjective Remarks intubated, unresponsive off sedation Objective Medications Current Medications Medications (Trade) Dose Ordered Sig/Scarlett Route Start Time Stop Time Status Last Admin (Brethine Inj) 1 mg UNSCH PRN SQ 05/06/17 22:45 (Tylenol) 650 mg Q6H PRN PO 05/06/17 23:30 05/17/17 19:45 (Zofran Inj) 4 mg Q6H PRN IV PUSH 05/06/17 23:30 (Albuterol Neb) 2.5 mg Q2HR NEB PRN INH 05/06/17 23:30 Miscellaneous Information 1 Q361D XX 05/06/17 23:30 (Chlorhexidine 2% Cloth) Taper DAILY@04 TOP 05/07/17 04:00 05/03/18 03:59 05/13/17 03:36 (Chlorhexidine 2% Cloth) 3 pack UNSCH PRN TOP 05/06/17 23:30 (Aggie-Colace) 1 tab BID PO 05/07/17 09:00 05/17/17 19:39 (Milk Of Magnesia Liq) 30 ml Q12H PRN PO 05/06/17 23:30 (Senokot) 17.2 mg Q12H PRN PO 05/06/17 23:30 (Dulcolax Supp) 10 mg DAILY PRN RECTAL 05/06/17 23:30 (Peridex 0.12% Liq) 15 ml BID@08,20 MT 05/07/17 08:00 05/19/17 12:03 (NS Flush) 2 ml BID IV FLUSH 05/07/17 09:00 05/19/17 08:17 (NS Flush) 2 ml UNSCH PRN IV FLUSH 05/07/17 04:30 (Heparin Inj) 5,000 units Q12H SQ 05/07/17 05:00 05/19/17 03:46 (Lacrilube Opht Oint) 1 applic Q12HR EACH EYE 05/07/17 09:00 05/19/17 08:41 (Ecotrin Ec) 81 mg DAILY PO 05/08/17 09:00 05/19/17 08:18 Piperacillin Sod/ Tazobactam Sod 50 ml @ 100 mls/hr Q6H IV 05/07/17 09:00 05/21/17 08:59 05/19/17 08:17 (Lactulose Liq) 30 ml DAILY OG-TUBE 05/07/17 09:00 05/18/17 08:51 (D50w (Vial) Inj) 50 ml UNSCH PRN IV PUSH 05/08/17 00:30 (Glucagon Inj) 1 mg UNSCH PRN OTHER 05/08/17 00:30 (NovoLOG SUPPLEMENTAL SCALE) 1 Q4H SQ 05/08/17 00:30 05/19/17 12:01 Pharmacy Profile Note 0 ml @ 0 mls/hr UNSCH OTHER 05/10/17 10:30 Diltiazem HCl 125 mg/Sodium Chloride 125 ml @ 5 mls/hr TITRATE PRN IV 05/10/17 12:00 05/19/17 03:47 (Apresoline Inj) 20 mg Q4H PRN IV PUSH 05/13/17 11:15 (Norvasc) 10 mg DAILY PO 05/14/17 09:15 05/19/17 08:18 Vancomycin HCl 1500 mg/Sodium Chloride 515 ml @ 257.5 mls/ hr Q24H IV 05/15/17 12:00 05/19/17 11:43 (Depakene Liq) 250 mg BID NG 05/16/17 11:00 05/19/17 08:17 Potassium Chloride/Dextrose 1,000 ml @ 70 mls/hr [id number] IV 05/17/17 23:45 05/19/17 03:45 (Duoneb Neb) 1 ampule Q6HR NEB INH 05/18/17 10:00 05/19/17 10:13 (Free Water) 300 ml Q4HR G-TUBE 05/18/17 12:00 05/19/17 12:03 (Pepcid) 20 mg DAILY NG 05/18/17 09:00 05/19/17 08:18 (Keppra Liq) 1,000 mg Q12HR NG 05/18/17 09:00 05/19/17 08:17 (Neurontin Liq) 100 mg HS NG 05/18/17 21:00 05/18/17 19:46 Midazolam HCl 100 ml @ 2 mls/hr TITRATE PRN IV 05/18/17 08:30 05/18/17 12:46 (Ddavp Inj) 1 mcg Q12HR SQ 05/18/17 21:00 05/19/17 08:18 (Lanoxin) 0.125 mg ONCE ONCE PO 05/19/17 13:00 05/19/17 13:01 UNV (Lanoxin) 0.125 mg DAILY PO 05/20/17 09:00 UNV (Coreg) 25 mg BID PO 05/19/17 21:00 UNV (Trandate Inj) 10 mg Q1HR PRN IV 05/19/17 13:15 UNV Clevidipine 50 ml @ 2 mls/hr TITRATE PRN IV 05/19/17 13:15 UNV Vital Signs / I&O Vital Signs Date Time Temp Pulse Resp B/P (MAP) Pulse Ox O2 Delivery O2 Flow Rate FiO2 05/19/17 11:18 100 35 05/19/17 10:00 79 05/19/17 08:33 100 35 05/19/17 08:00 90 05/19/17 08:00 99.2 90 21 160/72 (101) 100 05/19/17 06:00 91 05/19/17 04:09 99 35 05/19/17 04:00 99.0 95 16 184/81 (115) 98 05/19/17 04:00 35 05/19/17 04:00 94 05/19/17 03:47 92 173/81 05/19/17 02:00 91 05/19/17 00:07 100 35 05/19/17 00:00 99.0 80 16 150/70 (96) 99 05/19/17 00:00 35 05/19/17 00:00 82 05/18/17 22:00 79 05/18/17 20:36 100 35 05/18/17 20:00 35 05/18/17 20:00 80 05/18/17 20:00 99.0 95 18 187/83 (117) 100 05/18/17 18:00 85 05/18/17 17:45 85 05/18/17 17:30 94 05/18/17 17:15 91 05/18/17 17:11 85 17 163/69 (100) 05/18/17 17:11 85 05/18/17 17:00 86 05/18/17 16:45 84 05/18/17 16:30 83 05/18/17 16:15 84 05/18/17 16:00 86 05/18/17 16:00 86 17 97 05/18/17 16:00 35 05/18/17 15:07 99 35 05/18/17 14:00 86 05/18/17 14:00 86 16 100 I/O 05/18/17 05/18/17 05/18/17 05/19/17 05/19/17 05/19/17 07:00 15:00 23:00 07:00 15:00 23:00 Intake Total 1522 ml 200 ml 1100 ml 717 ml Output Total 1750 ml 1800 ml 650 ml 1150 ml Balance -228 ml 200 ml -700 ml 67 ml -1150 ml Intake IV Total 631 ml 200 ml 100 ml Tube Feeding 591 ml 400 ml 457 ml Other 300 ml 600 ml 260 ml Output Urine Total 1750 ml 1800 ml 650 ml 1150 ml # Bowel Movements 2 5 3 Physical Exam GENERAL: SKIN: Warm and dry. HEAD: Normocephalic. EYES: No scleral icterus. No injection or drainage. NECK: Supple, trachea midline. No JVD or lymphadenopathy. CARDIOVASCULAR: Regular rate and rhythm without murmurs, gallops, or rubs. RESPIRATORY: Breath sounds equal bilaterally. No accessory muscle use. GASTROINTESTINAL: Abdomen soft, non-tender, nondistended. MUSCULOSKELETAL: No cyanosis, or edema. BACK: Nontender without obvious deformity. No CVA tenderness. Laboratory Laboratory Tests Test 05/19/17 07:27 05/19/17 07:30 Blood Urea Nitrogen 21 MG/DL Creatinine 1.39 MG/DL Random Glucose 225 MG/DL Total Protein 6.9 GM/DL Albumin 1.8 GM/DL Calcium Level 9.6 MG/DL Phosphorus Level 2.5 MG/DL Magnesium Level 2.7 MG/DL Alkaline Phosphatase 83 U/L Aspartate Amino Transf (AST/SGOT) 29 U/L Alanine Aminotransferase (ALT/SGPT) 33 U/L Total Bilirubin 0.4 MG/DL Sodium Level 158 MEQ/L Potassium Level 3.4 MEQ/L Chloride Level 124 MEQ/L Carbon Dioxide Level 26.0 MEQ/L Anion Gap 8 MEQ/L Estimat Glomerular Filtration Rate 47 ML/MIN Digoxin Level 0.6 NG/ML White Blood Count 18.5 TH/MM3 Red Blood Count 3.07 MIL/MM3 Hemoglobin 9.4 GM/DL Hematocrit 28.9 % Mean Corpuscular Volume 94.1 FL Mean Corpuscular Hemoglobin 30.7 PG Mean Corpuscular Hemoglobin Concent 32.6 % Red Cell Distribution Width 14.7 % Platelet Count 255 TH/MM3 Mean Platelet Volume 10.9 FL Neutrophils (%) (Auto) 83.8 % Lymphocytes (%) (Auto) 8.3 % Monocytes (%) (Auto) 4.8 % Eosinophils (%) (Auto) 1.7 % Basophils (%) (Auto) 1.4 % Neutrophils # (Auto) 15.5 TH/MM3 Lymphocytes # (Auto) 1.5 TH/MM3 Monocytes # (Auto) 0.9 TH/MM3 Eosinophils # (Auto) 0.3 TH/MM3 Basophils # (Auto) 0.3 TH/MM3 CBC Comment AUTO DIFF Differential Total Cells Counted 100 Neutrophils % (Manual) 71 % Band Neutrophils % 16 % Lymphocytes % 7 % Monocytes % 5 % Eosinophils % 1 % Neutrophils # (Manual) 16.1 TH/MM3 Differential Comment FINAL DIFF MANUAL Platelet Estimate NORMAL Platelet Morphology Comment NORMAL Hematology Comments Assessment and Plan Problem List: (1) CAD (coronary artery disease) ICD Codes: I25.10 - Atherosclerotic heart disease of [place] coronary artery without angina pectoris (2) CHRONIC OBSTRUCTIVE PULMON DISEASE W ACUTE LOWER RESP INFCT ICD Codes: J44.0 - CHRONIC OBSTRUCTIVE PULMON DISEASE W ACUTE LOWER RESP INFCT Status: Acute (3) Cardiomyopathy ICD Codes: I42.9 - Cardiomyopathy Status: Acute (4) Cardiopulmonary arrest ICD Codes: I46.9 - Cardiac arrest, cause unspecified Status: Acute (5) Diabetes mellitus ICD Codes: E11.9 - Type 2 diabetes mellitus without complications Status: Acute Assessment and Plan 1.) Cardiomyopathy - euvolemic, obie and beta navya held due to recent cardiogenic shock and uncertain neurologic status 2.) CAD - continue aspirin, statin held due to shock liver and elevated lfts Aguila Early MD May 19, 2017 13:40
[2017-05-19] MEDS ORDERED: DIGOXIN 0.125 MG TAB PO ONE (14:00)
--- NOTE | 2017-05-19 14:24 | HHI.NPPN ---
Subjective History of Present Illness 56 year old female with cardiomyopathy COPD CAD Anoxic bran injury and develop ARF. Additional Remarks Patient remain on the vent. comatose, now spiking fever. Objective Data Data 05/19/17 05/20/17 19:00 07:00 Output Total 1150 ml Balance -1150 ml Output Urine Total 1150 ml Vital Signs Date Time Temp Pulse Resp B/P (MAP) Pulse Ox O2 Delivery O2 Flow Rate FiO2 05/19/17 11:18 100 35 05/19/17 10:00 79 05/19/17 08:33 100 35 05/19/17 08:00 90 05/19/17 08:00 99.2 90 21 160/72 (101) 100 05/19/17 06:00 91 05/19/17 04:09 99 35 05/19/17 04:00 99.0 95 16 184/81 (115) 98 05/19/17 04:00 35 05/19/17 04:00 94 05/19/17 03:47 92 173/81 05/19/17 02:00 91 05/19/17 00:07 100 35 05/19/17 00:00 99.0 80 16 150/70 (96) 99 05/19/17 00:00 35 05/19/17 00:00 82 05/18/17 22:00 79 05/18/17 20:36 100 35 05/18/17 20:00 35 05/18/17 20:00 80 05/18/17 20:00 99.0 95 18 187/83 (117) 100 05/18/17 18:00 85 05/18/17 17:45 85 05/18/17 17:30 94 05/18/17 17:15 91 05/18/17 17:11 85 17 163/69 (100) 05/18/17 17:11 85 05/18/17 17:00 86 05/18/17 16:45 84 05/18/17 16:30 83 05/18/17 16:15 84 05/18/17 16:00 86 05/18/17 16:00 86 17 97 05/18/17 16:00 35 05/18/17 15:07 99 35 -: 05/19/17 0730 05/19/17 0727 Physical Exam Neck Neck Exam: Neck Supple Pulmonary Resp Exam: Breath Sounds Equal, Rhonchi, Decreased Bases, Poor Inspiratory Effort Cardiology CV Exam: Regular Gastrointestinal/Abdomen GI Exam: Soft, Bowel Sounds Present, Distended Extremeties Extremities Exam: Moderate Edema Neurologic Neuro Exam: Unresponsive Assessment/Plan Problem List: (1) Acute renal failure ICD Codes: N17.9 - Acute kidney failure, unspecified Plan: Patient with acute renal failure cardiomyopathy CHF coronary syndrome ATN Daughter at bedside discussed with her. ARF/CKD stable but she has anoxic brain injury and will be on Ventilator support Her prognosis is poor due to anoxic brain injury BMP Na 158 /Cr 1.39 given DDAVP D5KCL 20 meq 70/hr water flushes Follow the urine out put and BMP. (2) Cardiopulmonary arrest ICD Codes: I46.9 - Cardiac arrest, cause unspecified Status: Acute Plan: Critical care following (3) Cardiogenic shock ICD Codes: R57.0 - Cardiogenic shock Status: Acute Plan: Cardiomyopathy (4) Anoxic encephalopathy ICD Codes: G93.1 - Anoxic brain damage, not elsewhere classified Status: Acute Plan: Brain injury with no recovery (5) Cardiomyopathy ICD Codes: I42.9 - Cardiomyopathy Status: Acute Plan: EF of 20% Problem Qualifiers (1) Acute renal failure: Qualified Codes: N17.0 - Acute kidney failure with tubular necrosis Apollo Hughes MD May 19, 2017 14:24
[2017-05-19] MEDS: GABAPENTIN 250 MG/5 ML UDC NG SCH (22:56)
[2017-05-19] MEDS: MIDAZOLAM 100 MG/100 ML INJ 100 ML IV PRN (23:07)
[2017-05-20] VITALS (19 sets, daily range): BP systolic 141–155; BP diastolic 64–70; PULSE 72–81; RESP 16; TEMP 97.6–99.4; O2SAT 97–100
[2017-05-20] MEDS: INSULIN ASPART SUPPLEMENTAL SCALE SQ SCH ×6 (00:30→20:30)
[2017-05-20] MEDS: PIPERACIL-TAZO 3.375 GM PREMIX 50 ML IV SCH ×4 (03:29→22:04)
[2017-05-20] MEDS: CHLORHEXIDINE GLUCONATE 2 % 1 PACK (2 CLOTHS) TOP SCH (03:36)
[2017-05-20] MEDS: RESP: ALBUTEROL 2.5 MG/IPRATROPIUM 0.5 MG NEB (SCH) INH ×4 (03:42→20:11)
[2017-05-20] MEDS: FREE WATER G-TUBE SCH ×6 (04:00→21:54)
[2017-05-20] MEDS: HEPARIN SODIUM - SQ 10,000 UNITS/ML VIAL SQ SCH ×2 (04:40→15:41)
--- NOTE | 2017-05-20 05:18 | RADRPT ---
EXAM DATE/TIME: 05/20/2017 04:24 [facility] COMPARISON: CHEST SINGLE AP, May 18, 2017, 8:14. INDICATIONS : Respiratory failure post Cardiopulmonary Arrest MEDICAL HISTORY : Diabetes mellitus type II. Hypertension Hyperlipidemia SURGICAL HISTORY : Cholecystectomy. ENCOUNTER: Subsequent ACUITY: 2 weeks PAIN SCORE: Non-responsive. LOCATION: Bilateral chest FINDINGS: No infiltrate, effusion or pneumothorax seen. Mild cardiomegaly is stable. Endotracheal tube tip is approximately 4 cm above the jayson. Nasogastric tube courses into the stoma ch. CONCLUSION: Appropriate tube positions. Clear lungs. Noé Sloan MD on May 20, 2017 at 5:15 Board Certified Radiologist. This report was verified electronically.
[2017-05-20] MEDS: D5W + KCL 20 MEQ INJ 1,000 ML IV SCH (05:29)
[2017-05-20 06:30] LABS: AUTOMATED NEUTROPHIL # 9.7 TH/MM3 (1.8-7.7); BASOPHIL # 0.1 TH/MM3 (0-0.2); BASOPHIL % 0.9 % (0.0-2.0); EOSINOPHIL # 0.3 TH/MM3 (0-0.4); EOSINOPHIL % 2.7 % (0.0-4.0); HEMATOCRIT 29.6 % (35.0-46.0); HEMO FLAGS DIFF FINAL; LYMPH % 11.7 % (9.0-44.0); LYMPHOCYTE # 1.4 TH/MM3 (1.0-4.8); MEAN CELL VOLUME 94.1 FL (80.0-100.0); MEAN CORPUSCULAR HEMOGLOBIN 30.3 PG (27.0-34.0); MEAN CORPUSCULAR HGB CONC 32.2 % (32.0-36.0); MONO % 5.7 % (0.0-8.0); PLATELET COUNT 256 TH/MM3 (150-450); RED BLOOD COUNT 3.15 MIL/MM3 (4.00-5.30); RED CELL DISTRIBUTION WIDTH 14.8 % (11.6-17.2); WHITE BLOOD COUNT 12.2 TH/MM3 (4.0-11.0)
[2017-05-20] MEDS: DILTIAZEM INJ 125 MG in SODIUM CHLORIDE 0.9% INJ 100 ML IV PRN (06:53)
[2017-05-20 07:08] LABS: DIGOXIN 0.6 NG/ML (0.8-2.0); POTASSIUM 3.4 MEQ/L (3.5-5.1)
[2017-05-20] MEDS: levETIRAcetam 500 MG/5 ML UDC NG SCH ×2 (08:57→21:00)
[2017-05-20] MEDS: DIGOXIN 0.125 MG TAB PO SCH (08:58)
[2017-05-20] MEDS: DESMOPRESSIN ACETATE 4 MCG/ML VIAL SQ SCH ×2 (08:58→22:05)
[2017-05-20] MEDS: CARVEDILOL 12.5 MG TAB PO SCH ×2 (08:58→21:00)
[2017-05-20] MEDS: ASPIRIN EC 81 MG TABEC PO SCH (08:58)
[2017-05-20] MEDS: VALPROIC ACID SYRUP 250 MG/5 ML UDC NG SCH ×2 (08:58→21:00)
[2017-05-20] MEDS: LACTULOSE SYRUP 20 GM/30 ML CUP OG-TUBE SCH (08:59)
[2017-05-20] MEDS: DOCUSATE SODIUM 50 MG/SENNA 8.6 MG TAB PO SCH ×2 (08:59→21:00)
[2017-05-20] MEDS: SODIUM CHLORIDE 0.9% FLUSH 10 ML FLUSH IV FLUSH SCH ×2 (08:59→21:00)
[2017-05-20] MEDS: FAMOTIDINE 20 MG TAB NG SCH (09:06)
[2017-05-20] MEDS: CHLORHEXIDINE 0.12% (ORAL KIT) 15 ML CUP MT SCH ×2 (09:06→22:04)
[2017-05-20] MEDS: ARTIFICIAL TEARS OPTH OINT 3.5 APPLIC/3.5 GM TUBO EACH EYE SCH ×2 (09:08→21:00)
--- NOTE | 2017-05-20 09:51 | PD.CARD.PN ---
Subjective Subjective Remarks intubated, unresponsive off sedation Objective Medications Current Medications Medications (Trade) Dose Ordered Sig/Scarlett Route Start Time Stop Time Status Last Admin (Brethine Inj) 1 mg UNSCH PRN SQ 05/06/17 22:45 (Tylenol) 650 mg Q6H PRN PO 05/06/17 23:30 05/17/17 19:45 (Zofran Inj) 4 mg Q6H PRN IV PUSH 05/06/17 23:30 (Albuterol Neb) 2.5 mg Q2HR NEB PRN INH 05/06/17 23:30 Miscellaneous Information 1 Q361D XX 05/06/17 23:30 (Chlorhexidine 2% Cloth) Taper DAILY@04 TOP 05/07/17 04:00 05/03/18 03:59 05/13/17 03:36 (Chlorhexidine 2% Cloth) 3 pack UNSCH PRN TOP 05/06/17 23:30 (Aggie-Colace) 1 tab BID PO 05/07/17 09:00 05/17/17 19:39 (Milk Of Magnesia Liq) 30 ml Q12H PRN PO 05/06/17 23:30 (Senokot) 17.2 mg Q12H PRN PO 05/06/17 23:30 (Dulcolax Supp) 10 mg DAILY PRN RECTAL 05/06/17 23:30 (Peridex 0.12% Liq) 15 ml BID@08,20 MT 05/07/17 08:00 05/20/17 09:06 (NS Flush) 2 ml BID IV FLUSH 05/07/17 09:00 05/19/17 22:58 (NS Flush) 2 ml UNSCH PRN IV FLUSH 05/07/17 04:30 (Heparin Inj) 5,000 units Q12H SQ 05/07/17 05:00 05/20/17 04:40 (Lacrilube Opht Oint) 1 applic Q12HR EACH EYE 05/07/17 09:00 05/20/17 09:08 (Ecotrin Ec) 81 mg DAILY PO 05/08/17 09:00 05/20/17 08:58 Piperacillin Sod/ Tazobactam Sod 50 ml @ 100 mls/hr Q6H IV 05/07/17 09:00 05/21/17 08:59 05/20/17 09:06 (Lactulose Liq) 30 ml DAILY OG-TUBE 05/07/17 09:00 05/18/17 08:51 (D50w (Vial) Inj) 50 ml UNSCH PRN IV PUSH 05/08/17 00:30 (Glucagon Inj) 1 mg UNSCH PRN OTHER 05/08/17 00:30 (NovoLOG SUPPLEMENTAL SCALE) 1 Q4H SQ 05/08/17 00:30 05/20/17 09:07 Pharmacy Profile Note 0 ml @ 0 mls/hr UNSCH OTHER 05/10/17 10:30 Diltiazem HCl 125 mg/Sodium Chloride 125 ml @ 5 mls/hr TITRATE PRN IV 05/10/17 12:00 05/20/17 06:53 (Apresoline Inj) 20 mg Q4H PRN IV PUSH 05/13/17 11:15 (Norvasc) 10 mg DAILY PO 05/14/17 09:15 05/20/17 08:58 Vancomycin HCl 1500 mg/Sodium Chloride 515 ml @ 257.5 mls/ hr Q24H IV 05/15/17 12:00 05/19/17 11:43 (Depakene Liq) 250 mg BID NG 05/16/17 11:00 05/20/17 08:58 Potassium Chloride/Dextrose 1,000 ml @ 70 mls/hr [id number] IV 05/17/17 23:45 05/20/17 05:29 (Duoneb Neb) 1 ampule Q6HR NEB INH 05/18/17 10:00 05/20/17 08:08 (Free Water) 300 ml Q4HR G-TUBE 05/18/17 12:00 05/20/17 08:00 (Pepcid) 20 mg DAILY NG 05/18/17 09:00 05/20/17 09:06 (Keppra Liq) 1,000 mg Q12HR NG 05/18/17 09:00 05/20/17 08:57 (Neurontin Liq) 100 mg HS NG 05/18/17 21:00 05/19/17 22:56 Midazolam HCl 100 ml @ 2 mls/hr TITRATE PRN IV 05/18/17 08:30 05/19/17 23:07 (Ddavp Inj) 1 mcg Q12HR SQ 05/18/17 21:00 05/20/17 08:58 (Lanoxin) 0.125 mg DAILY PO 05/20/17 09:00 05/20/17 08:58 (Coreg) 25 mg BID PO 05/19/17 21:00 05/20/17 08:58 (Trandate Inj) 10 mg Q1H PRN IV 05/19/17 13:15 Clevidipine 50 ml @ 2 mls/hr TITRATE PRN IV 05/19/17 13:15 Vital Signs / I&O Vital Signs Date Time Temp Pulse Resp B/P (MAP) Pulse Ox O2 Delivery O2 Flow Rate FiO2 05/20/17 08:08 100 35 05/20/17 06:53 77 163/72 05/20/17 06:52 77 05/20/17 06:00 79 05/20/17 04:17 100 35 05/20/17 04:00 99.4 79 16 149/68 (95) 99 05/20/17 04:00 79 05/20/17 04:00 35 05/20/17 02:00 77 05/20/17 00:00 99.1 80 16 152/70 (97) 100 05/20/17 00:00 35 05/20/17 00:00 80 05/19/17 23:55 100 35 05/19/17 22:00 90 05/19/17 20:11 100 35 05/19/17 20:00 93 05/19/17 20:00 99.0 90 16 169/76 (107) 100 05/19/17 20:00 35 05/19/17 18:00 85 05/19/17 17:34 100 35 05/19/17 17:28 100 35 05/19/17 16:00 83 05/19/17 16:00 99.8 83 16 161/72 (101) 100 05/19/17 16:00 35 05/19/17 15:11 100 35 05/19/17 14:00 84 05/19/17 12:00 84 05/19/17 12:00 35 05/19/17 11:18 100 35 05/19/17 10:00 79 I/O 05/19/17 05/19/17 05/19/17 05/20/17 05/20/17 05/20/17 07:00 15:00 23:00 07:00 15:00 23:00 Intake Total 717 ml 642 ml 1484 ml 2809 ml Output Total 650 ml 1150 ml 1300.0 ml 1300 ml Balance 67 ml -508 ml 184.0 ml 1509 ml Intake IV Total 642 ml 50 ml 1817 ml Tube Feeding 457 ml 534 ml 992 ml Other 260 ml 900 ml Output Urine Total 650 ml 1150 ml 1300 ml 1300 ml Tube Feeding Residual Discard 0 ml # Bowel Movements 3 1 Physical Exam GENERAL: SKIN: Warm and dry. HEAD: Normocephalic. EYES: No scleral icterus. No injection or drainage. NECK: Supple, trachea midline. No JVD or lymphadenopathy. CARDIOVASCULAR: Regular rate and rhythm without murmurs, gallops, or rubs. RESPIRATORY: Breath sounds equal bilaterally. No accessory muscle use. GASTROINTESTINAL: Abdomen soft, non-tender, nondistended. MUSCULOSKELETAL: No cyanosis, or edema. BACK: Nontender without obvious deformity. No CVA tenderness. Laboratory Laboratory Tests Test 05/20/17 06:05 White Blood Count 12.2 TH/MM3 Red Blood Count 3.15 MIL/MM3 Hemoglobin 9.5 GM/DL Hematocrit 29.6 % Mean Corpuscular Volume 94.1 FL Mean Corpuscular Hemoglobin 30.3 PG Mean Corpuscular Hemoglobin Concent 32.2 % Red Cell Distribution Width 14.8 % Platelet Count 256 TH/MM3 Mean Platelet Volume 10.7 FL Neutrophils (%) (Auto) 79.0 % Lymphocytes (%) (Auto) 11.7 % Monocytes (%) (Auto) 5.7 % Eosinophils (%) (Auto) 2.7 % Basophils (%) (Auto) 0.9 % Neutrophils # (Auto) 9.7 TH/MM3 Lymphocytes # (Auto) 1.4 TH/MM3 Monocytes # (Auto) 0.7 TH/MM3 Eosinophils # (Auto) 0.3 TH/MM3 Basophils # (Auto) 0.1 TH/MM3 CBC Comment DIFF FINAL Differential Comment Blood Urea Nitrogen 21 MG/DL Creatinine 1.21 MG/DL Random Glucose 315 MG/DL Albumin 1.6 GM/DL Calcium Level 8.8 MG/DL Phosphorus Level 2.6 MG/DL Sodium Level 156 MEQ/L Potassium Level 3.4 MEQ/L Chloride Level 120 MEQ/L Carbon Dioxide Level 26.0 MEQ/L Anion Gap 10 MEQ/L Estimat Glomerular Filtration Rate 55 ML/MIN Digoxin Level 0.6 NG/ML Imaging Last 24 hours Impressions Chest X-Ray 05/20/17 0600 Signed Impressions: Service Date/Time: Saturday, May 20, 2017 04:24 - CONCLUSION: Appropriate tube positions. Clear lungs. Noé Sloan MD Assessment and Plan Problem List: (1) CAD (coronary artery disease) ICD Codes: I25.10 - Atherosclerotic heart disease of [place] coronary artery without angina pectoris (2) CHRONIC OBSTRUCTIVE PULMON DISEASE W ACUTE LOWER RESP INFCT ICD Codes: J44.0 - CHRONIC OBSTRUCTIVE PULMON DISEASE W ACUTE LOWER RESP INFCT Status: Acute (3) Cardiomyopathy ICD Codes: I42.9 - Cardiomyopathy Status: Acute (4) Cardiopulmonary arrest ICD Codes: I46.9 - Cardiac arrest, cause unspecified Status: Acute (5) Diabetes mellitus ICD Codes: E11.9 - Type 2 diabetes mellitus without complications Status: Acute Assessment and Plan 1.) Cardiomyopathy - euvolemic, obie and beta navya held due to recent cardiogenic shock and uncertain neurologic status 2.) CAD - continue aspirin, statin held due to shock liver and elevated lfts Aguila Early MD May 20, 2017 09:51
[2017-05-20] MEDS: VANCOMYCIN 1,500 MG/NS 500 ML IV SCH ×2 (12:25)
--- NOTE | 2017-05-20 12:27 | HHI.NPPN ---
Subjective History of Present Illness 56 year old female with cardiomyopathy COPD CAD Anoxic bran injury and develop ARF. Additional Remarks Patient remain on the vent. comatose, now spiking fever. Objective Data Data Vital Signs Date Time Temp Pulse Resp B/P (MAP) Pulse Ox O2 Delivery O2 Flow Rate FiO2 05/20/17 12:00 98.4 73 16 141/64 (89) 97 05/20/17 12:00 73 05/20/17 10:00 75 05/20/17 08:08 100 35 05/20/17 08:00 35 05/20/17 08:00 97.8 80 16 153/70 (97) 100 05/20/17 08:00 80 05/20/17 06:53 77 163/72 05/20/17 06:52 77 05/20/17 06:00 79 05/20/17 04:17 100 35 05/20/17 04:00 99.4 79 16 149/68 (95) 99 05/20/17 04:00 79 05/20/17 04:00 35 05/20/17 02:00 77 05/20/17 00:00 99.1 80 16 152/70 (97) 100 05/20/17 00:00 35 05/20/17 00:00 80 05/19/17 23:55 100 35 05/19/17 22:00 90 05/19/17 20:11 100 35 05/19/17 20:00 93 05/19/17 20:00 99.0 90 16 169/76 (107) 100 05/19/17 20:00 35 05/19/17 18:00 85 05/19/17 17:34 100 35 05/19/17 17:28 100 35 05/19/17 16:00 83 05/19/17 16:00 99.8 83 16 161/72 (101) 100 05/19/17 16:00 35 05/19/17 15:11 100 35 05/19/17 14:00 84 -: 05/20/17 0605 05/20/17 0605 Physical Exam Neck Neck Exam: Neck Supple Pulmonary Resp Exam: Breath Sounds Equal, Rhonchi, Decreased Bases, Poor Inspiratory Effort Cardiology CV Exam: Regular Gastrointestinal/Abdomen GI Exam: Soft, Bowel Sounds Present, Distended Extremeties Extremities Exam: Moderate Edema Neurologic Neuro Exam: Unresponsive Assessment/Plan Problem List: (1) Acute renal failure ICD Codes: N17.9 - Acute kidney failure, unspecified Plan: Patient with acute renal failure cardiomyopathy CHF coronary syndrome ATN ARF/CKD stable but she has anoxic brain injury and will be on Ventilator support Her prognosis is poor due to anoxic brain injury BMP Na 156 /Cr 1.21 given DDAVP Replace potassium with KCl water flushes Follow the urine out put and BMP. (2) Cardiopulmonary arrest ICD Codes: I46.9 - Cardiac arrest, cause unspecified Status: Acute Plan: Critical care following (3) Cardiogenic shock ICD Codes: R57.0 - Cardiogenic shock Status: Acute Plan: Cardiomyopathy (4) Anoxic encephalopathy ICD Codes: G93.1 - Anoxic brain damage, not elsewhere classified Status: Acute Plan: Brain injury with no recovery (5) Cardiomyopathy ICD Codes: I42.9 - Cardiomyopathy Status: Acute Plan: EF of 20% Problem Qualifiers (1) Acute renal failure: Qualified Codes: N17.0 - Acute kidney failure with tubular necrosis Apollo Hughes MD May 20, 2017 12:27
[2017-05-20] MEDS ORDERED: POTASSIUM CHLOR 20 MEQ PREMIX 100 ML IV ONE (12:30)
[2017-05-20] MEDS ORDERED: ROCURONIUM INJ 50 MG/5 ML VIAL ONE (15:54)
[2017-05-20] MEDS ORDERED: MIDAZOLAM HCL 5 MG/ML VIAL (1 ML) ONE ×2 (15:55)
[2017-05-20] MEDS ORDERED: fentaNYL CITRATE 250 MCG/5 ML AMP IV PUSH ONE (16:00)
[2017-05-20] MEDS ORDERED: MIDAZOLAM HCL 2 MG/2 ML VIAL IV PUSH ONE (16:00)
[2017-05-20] MEDS ORDERED: ROCURONIUM INJ 100 MG/10 ML VIAL IV ONE (16:00)
[2017-05-20] MEDS ORDERED: ROCURONIUM INJ 50 MG/5 ML VIAL IV ONE (16:30)
--- NOTE | 2017-05-20 17:02 | RADRPT ---
EXAM DATE/TIME: 05/20/2017 16:51 [facility] COMPARISON: CHEST SINGLE AP, May 20, 2017, 4:24. INDICATIONS : Tracheostomy. MEDICAL HISTORY : Diabetes mellitus type II. Hypertension Hyperlipidemia SURGICAL HISTORY : Cholecystectomy. ENCOUNTER: Subsequent ACUITY: 2 weeks PAIN SCORE: Non-responsive. LOCATION: Bilateral chest FINDINGS: Interval placement of tracheostomy with tip in good position. Gastric tube has been removed. There is persisting consolidation in the left lower lobe with loss of delineation of the entire left hemidi aphragm. The right lung is clear. No evidence pneumothorax. CONCLUSION: Tracheostomy in good position. Persistent left lower lobe consolidation. Obi Barnes MD on May 20, 2017 at 17:00 Board Certified Radiologist. This report was verified electronically.
--- NOTE | 2017-05-20 17:39 | PD.PROCEDR ---
Procedure Note Procedure Procedure DX: Respiratory Failure (J96.00) OP: Bronchoscopy (00603) Procedure: Time out. Bronchoscope passed through vent circuit side port on elbow. Usual ICU monitoring in place. Mechanical ventilation performed. The mucosa of the main trachea was inflamed. The segmental bronchi both sides were inspected and suctioned for large amounts of dark brown sputum. Branching was anatomically normal. The scope and orotracheal tube were then withdrawn to the cricoid level. Visualization was accomplished from this position for the percutaneous trach insertion by another team. After trach insertion the scope was introduced through the new trach tube to confirm good position in the mid- trachea. Ventilation was then converted to the new trach tube. Sats were easily maintained over 94% throughout the procedure. Morales Murdock MD May 20, 2017 17:39
--- NOTE | 2017-05-20 18:36 | HHI.CCPN ---
Subjective Remarks/Hospital Course 56-year-old female with past medical history of hypertension, chronic systolic heart failure, diabetes, COPD bipolar disorder, seizure disorder who presented to [facility] emergency department via [facility] following cardiac arrest. [facility] was originally called for shortness of breath and when they arrived patient was unresponsive and in PEA. Combitube was placed. CPR was initiated and patient was administered epinephrine 4, 1 amp bicarbonate, Narcan 2 mg prior to arrival via left tibial I/O. Blood glucose was 334. Exact duration of prehospital CPR is unclear. Combitube was removed and she was intubated upon arrival. Patient had ROSC 5 minutes after arrival. She received additional epinephrine 2 in the ED. She also received 1 L normal saline bolus, vancomycin, Zosyn in the ED. Critical care medicine is consulted for admission. EKG has no acute ischemia. SUBJ 05/07: Intubated sedated neuromuscularly paralyzed. Induced hypothermia initiated at 7 AM, 2-D echo shows EF 25-30%, mild to moderate MR. Serial troponins negative 05/08: Remains neuromuscularly paralyzed. Hypothermia will be completed by the known and rewarming was started. Remains off inotropes and pressors 05/09: Hypothermia protocol completed, placed overnight on Versed also in addition to propofol and fentanyl for tachycardia and asynchrony. Currently patient while on sedation do not open eyes with very slight withdrawal to pain 05/10: Developed Afib with RVR yesterday with HR in 200's DC cardioverted at night by Dr. Chu. Placed back on Versed. RN reports paroxysmal A fib. EEG pending at this time for subclinical sz. EEG 05/07 burst suppression pattern. Neuro prognosis poor 05/11: No neuro improvement. Creat worsening, nephrology consulted. EEG severe encephalopathy consistent with anoxic injury. Palliative care is following 05/12: There had been no improvement in neuro status after completion of code cool approximately 4 days ago. Patient has not shown not seen any signs of improvement. Palliative care met with family. Patient is developing multiorgan dysfunction syndrome. Daughter wants withdrawal of life support but wants to wait until some other family members can visit from [place] 05/13: No meaningful recovery yet. Opens eyes partially to pain. Weakly withdraws all extremities to pain. UO 1.8L in 24 hours. Family considering withdrawal of life support today, considering comorbidities and poor neuro recovery after cooling 05/14: Eyes are spontaneously open but with upward gaze. No tracking no response to threat. Withdraws bilateral upper extremity to pain. Had been off sedation more than 4 days 05/15: Neuro exam remains unchanged, even less eye-opening and withdrawal. Fever up to 103.5. Pancultured. Continue on vancomycin and Zosyn until cultures are back. 05/16: no improvements or changes to mental status. persistent encephalopathy. poor prognosis. family wants to wait until other family can be present. palliative care clarifying goals. 05/17: no changes to poor mental status. still awaiting family. hypernatremia worsening. nephrology following. Cr improving though; ahsan post-ATN diuresis. 05/18: Tmax 98.9. Positive gag. Positive corneal reflex. Blinks. Does not withdraw to pain. Went to A. fib with RVR the today requiring synchronous cardioversion with 200 J currently in sinus tachycardia. Given digoxin 0.5 mg IV now. 05/19: Afebrile. Has not brain injury. Daughter yesterday she says she was the patient trach and PEG. Started on desmopressin per nephrology yesterday. Sodium still remains elevated. Subjective 05/20: no improvements in severe encephalopathy. Daughter continues to want aggressive treatment. will proceed with trach and PEG, and pursue long-term placement. Objective Vital Signs Date Time Temp Pulse Resp B/P (MAP) Pulse Ox O2 Delivery O2 Flow Rate FiO2 05/20/17 18:00 74 05/20/17 16:10 100 100 05/20/17 16:00 97.8 16 146/70 (95) Intake and Output 05/20/17 05/20/17 05/21/17 08:00 16:00 00:00 Intake Total 2809 ml 50 ml 1627 ml Output Total 1300 ml 925 ml 950 ml Balance 1509 ml -875 ml 677 ml Result Diagram: 05/20/1760405/20/17604 Imaging Last Impressions Chest X-Ray 05/18/17 0000 Signed Impressions: Service Date/Time: Thursday, May 18, 2017 08:14 - CONCLUSION: ET tube tip that the upper thoracic level. Increasing left lower lung consolidation. Obi Barnes MD Abdomen Ultrasound 05/07/17 0000 Signed Impressions: Service Date/Time: Sunday, May 07, 2017 14:19 - CONCLUSION: 1. Echogenic liver compatible with fatty infiltration or hepatocellular disease. 2. Cholecystectomy Laith Coe MD Head CT 05/06/172123 Signed Impressions: Service Date/Time: Sunday, May 07, 2017 03:14 - CONCLUSION: Normal examination. Noé Ybarra MD CT Angiography 05/06/17 0000 Signed Impressions: Service Date/Time: Sunday, May 07, 2017 03:21 - CONCLUSION: 1. No pulmonary embolus. 2. Bibasilar areas of consolidation or atelectasis being worse on the left. There are minimal bilateral pleural effusions. Noé Ybarra MD Objective Remarks GENERAL: 56-year-old female who is intubated, critically ill and unresponsive SKIN: Warm and dry. Well perfused HEAD: Atraumatic. Normocephalic. EYES: Bilateral exophthalmus. Pupils equal and round, reactive around 4 mm bilaterally. Positive corneal reflex ENT: No nasal bleeding or discharge. Orotracheally intubated NECK: Trachea midline. No JVD appreciated. No meningismus CARDIOVASCULAR: normal rate, regular rhythm. appears in sinus by tele today. RESPIRATORY: full mechanical support. fio2 35%. equal chest rise. GASTROINTESTINAL: Abdomen protuberant soft. No appreciable tenderness , rebound or guarding. : Benoit catheter is in place MUSCULOSKELETAL: Extremities without significant peripheral edema NEUROLOGICAL: Blinks.. Minimal partial eye opening to pain. Slight withdrawal to pain in all 4 ext upper extremities more than lower. Pupils as above. Positive gag. A/P Problem List: (1) Cardiac arrest ICD Code: I46.9 - Cardiac arrest, cause unspecified (2) Anoxic-ischemic encephalopathy ICD Code: G93.1 - Anoxic brain damage, not elsewhere classified; I67.82 - Cerebral ischemia (3) Chronic systolic heart failure ICD Code: I50.22 - Chronic systolic (congestive) heart failure Status: Chronic (4) Exophthalmos of both eyes ICD Code: H05.20 - Unspecified exophthalmos Status: Chronic (5) HTN (hypertension) ICD Code: I10 - Essential (primary) hypertension Status: Chronic (6) HLD (hyperlipidemia) ICD Code: E78.5 - Hyperlipidemia, unspecified Status: Chronic (7) Cardiogenic shock ICD Code: R57.0 - Cardiogenic shock Status: Acute (8) Acute respiratory failure with hypercapnia ICD Code: J96.02 - Acute respiratory failure with hypercapnia Status: Acute (9) Obesity (BMI 30-39.9) ICD Code: E66.9 - Obesity, unspecified Status: Chronic (10) CHF (congestive heart failure) ICD Code: I50.9 - CHF (congestive heart failure) Status: Acute (11) Bipolar disorder ICD Code: F31.9 - Bipolar affective disorder Status: Chronic (12) COPD (chronic obstructive pulmonary disease) ICD Code: J44.9 - Chronic obstructive pulmonary disease Status: Chronic (13) Tobacco abuse ICD Code: Z72.0 - Tobacco use Status: Chronic Assessment and Plan Assessment: 56yF with severe hypoxic-ischemic encephalopathy. poor prognosis. family wants aggressive care. will pursue trach/peg and placement. ongoing renal and electrolyte derangements persist. NEURO/PSYCH: Acute anoxic encephalopathy, severe Bipolar disorder Exophthalmus Status post completion of induced therapeutic hypothermia. initiated at 0700 , completed 05/08/17. Off sedation more than 7 days No neurologic improvement yet, prognosis poor. Neurology Dr. Solitario. CT brain - negative. Depakote level. 48. Was on Depakote for bipolar. restarted Depakote at 250 twice a day 500 daily at home Lactulose 30 daily. Ammonia level down to 31. Neg urine drug screen, APAP, ASA level. Resumed gabapentin 100 milligrams at night. Holding bupropion 150 mg daily EEG shows severe encephalopathy, burst suppression pattern. Repeat EEG severe encephalopathy RESP: Acute hypercapnic respiratory failure COPD Tobacco abuse Ventilator bundle. Albuterol/ipratropium aerosols q6 hours. Albuterol q2 hours prn. No Wheezing No Vent weaning until mental status improved trach today at bedside. CV: PEA cardiac arrest Post cardiac arrest syndrome with shock (resolved) Afib with RVR Chronic systolic heart failure with ejection fraction 15-20% (25-30 on echo) Nonobstructive Coronary artery disease Essential Hypertension, uncontrolled Hyperlipidemia Holding valsartan 160 mg due to acute kidney injury. Carvedilol 12.5 mg twice a day increased to 25 mg twice a day and amlodipine 10 mg daily. use IV Hydralazine and labetalol PRN for SBP >170. DCCV for Afib RVR with HR 200/min. 2. Second time 05/18 Continue Cardizem for paroxysmal A fib and digoxin 0.125 mg daily EKG normal sinus rhythm rate of 99. No apparent acute ischemia. Follow-up serial EKGs and cardiac markers-negative. 2-D echo EF 25-30%. Cardiology Dr. Early Etiology of cardiac arrest unclear. Most likely due to hypercapnia and respiratory acidosis Continue aspirin 81 mg daily. Holding statin simvastatin 40 mg daily due to elevated LFTs. tarnsition to PO cardizem and off drip. GI: GERD Transaminitis, probable ischemic hepatopathy. Orogastric tube. RUQ us-fatty liver, hepatitis panel negative Tube feeds with Glucerna currently at 45 cc an hour Famotidine for GI prophylaxis Docusate sodium/senna twice a day for bowel regimen consult GI for PEG placement. FEN/RENAL: MARQUEZ Lactic acidemia Hypernatremia Benoit in place. Monitor intake and output. Monitor electrolytes and replace as indicated. Hold home NSAID's. Creat improved today Nephrology consult for worsening creatinine. Dr. Hughes following. Nonoliguric renal failure Currently on D5 water with 20 KCl at 70 cc an hour. Free water 300 cc every 4 hours. Recheck sodium in AM. ID: High fever, sepsis Candiduria Bacteremia with strep viridans, Coag neg staph, pleomorphic GPR s/p full course of Vanc/Zosyn for strep bacteremia (2 weeks of vancomycin for GPC bacteremia). d/c and monitor clinically. Blood cultures 05/06 with strep radius, coag negative staph and pleomorphic gram -positive rods. Urine culture 05/03 with Lucinda albicans HEME: No acute hematologic issues. ENDO: Diabetes mellitus with acute hyperglycemia Hold metformin 1000 mg twice a day, glipizide 5 mg twice a day, insulin glargine 24 units daily. SSI Novulog every 4 hours/low Thyroid studies-essentially euthyroid PROPH: Sq heparin for DVT prophylaxis. Famotidine for stress ulcer prophylaxis and history of GERD ACCESS: Peripheral IV. Central line if indicated. ALT CODE. Palliative care following. Prognosis appears very poor. Level II follow-up Problem Qualifiers (1) HTN (hypertension): Qualified Codes: I10 - Essential (primary) hypertension Luis Manuel Melvin MD May 20, 2017 18:36
--- NOTE | 2017-05-20 18:37 | PD.PROCEDR ---
Procedure Note Procedure Percutaneous Dilation Tracheostomy Tube Placement Diagnosis: Hypoxic ischemic encephalopathy Indications: Acute leading to subacute/chronic respiratory failure Anesthesia: Versed 10 mg IV Neuromuscular Blockade: Rocuronium 100 mg IV Anesthesia was provided by the bedside RN Description of the Procedure: The patient was sedated and paralyzed. The patient was positioned in the supine position with a chest roll. The patient's neck was slightly extended. Landmarks were palpated and the anatomy of the anterior neck was deemed normal. A time out procedure was performed. The patient was placed on a volume control mode of ventilation, on 100% FiO2. The patient was prepped and draped sterilely. A bronchoscope was inserted into the endotracheal tube for endoscopic guidance (see separate bronchoscopy procedure note). After negative aspiration, 1% lidocaine with 1:100k epinephrine was injected subcutaneously in the midline neck using a 21g needle for local anesthesia. An approximately 2cm skin incision was made using a #15 blade. The cricoid cartilage, thyroid tissue , and tracheal rings were palpated in the midline. Under direct bronchoscopic guidance, the cuff of the endotracheal tube was deflated and the endotracheal tube was retracted to a level above the level of the skin incision. At this point, a 15g introducer needle/catheter was advanced midline under negative aspiration with saline filled syringe until bubbles were seen and the needle and catheter were visualized in the lumen of the trachea. The needle was withdrawn leaving the catheter in place. A 0.052 in diameter J-shaped guidewire was advanced through the catheter into the lumen of the trachea, under direct bronchoscopic visualization. Using a modified Seldinger technique , a 14 Fr, 4.5 cm introducer dilator was used, followed by a Blue Rhino Percutaneous Tracheostomy Dilator, and finally a 28 Fr tracheostomy loading catheter with 8.0 Cuffed Shiley tracheostomy tube. The loading catheter and guidewire were removed and the tracheostomy tube was confirmed in the lumen of the trachea with bronchoscopy, end-tidal CO2, and returning volumes on the ventilator. The tracheostomy was sewn to the skin with interrupted 2.0 Prolene sutures, and a tracheostomy tie was applied to the skin. There were no immediate complications. There was minimal EBL. A chest x-ray has been ordered. Sfdc Developer: Dr. Morales Murdock I personally performed the procedure. Luis Manuel Melvin MD May 20, 2017 18:37
[2017-05-20] MEDS ORDERED: HALOPERIDOL LACTATE 5 MG/ML AMP IV PRN (18:45)
[2017-05-20] MEDS: oxyCODONE HCL ORAL CONC 5 MG/0.25 ML SYRINGE PO SCH ×2 (19:00→21:54)
[2017-05-20] MEDS: GABAPENTIN 250 MG/5 ML UDC NG SCH (21:00)
[2017-05-21] VITALS (50 sets, daily range): BP systolic 124–188; BP diastolic 57–80; PULSE 70–99; RESP 14–22; TEMP 97.7–98.6; O2SAT 96–100
[2017-05-21] MEDS: DILTIAZEM HCL 30 MG TAB PO SCH ×4 (00:12→18:01)
[2017-05-21] MEDS: INSULIN ASPART SUPPLEMENTAL SCALE SQ SCH ×6 (00:12→20:01)
[2017-05-21] MEDS: oxyCODONE HCL ORAL CONC 5 MG/0.25 ML SYRINGE PO SCH ×6 (00:14→18:36)
[2017-05-21] MEDS: D5W + KCL 20 MEQ INJ 1,000 ML IV SCH ×2 (01:54→14:16)
[2017-05-21] MEDS: PIPERACIL-TAZO 3.375 GM PREMIX 50 ML IV SCH (02:57)
[2017-05-21] MEDS: FREE WATER G-TUBE SCH ×6 (02:57→19:40)
[2017-05-21] MEDS: CHLORHEXIDINE GLUCONATE 2 % 1 PACK (2 CLOTHS) TOP SCH (02:57)
[2017-05-21] MEDS: RESP: ALBUTEROL 2.5 MG/IPRATROPIUM 0.5 MG NEB (SCH) INH ×4 (03:50→21:13)
[2017-05-21] MEDS: HEPARIN SODIUM - SQ 10,000 UNITS/ML VIAL SQ SCH ×2 (04:22→16:05)
[2017-05-21 06:50] LABS: BICARBONATE 24.8 MEQ/L (21.0-32.0); POTASSIUM 3.2 MEQ/L (3.5-5.1)
[2017-05-21] MEDS: LACTULOSE SYRUP 20 GM/30 ML CUP OG-TUBE SCH (09:26)
[2017-05-21] MEDS: FAMOTIDINE 20 MG TAB NG SCH (09:26)
[2017-05-21] MEDS: DIGOXIN 0.125 MG TAB PO SCH (09:26)
[2017-05-21] MEDS: ASPIRIN EC 81 MG TABEC PO SCH (09:26)
[2017-05-21] MEDS: DOCUSATE SODIUM 50 MG/SENNA 8.6 MG TAB PO SCH ×2 (09:26→20:00)
[2017-05-21] MEDS: VALPROIC ACID SYRUP 250 MG/5 ML UDC NG SCH ×2 (09:27→20:00)
[2017-05-21] MEDS: levETIRAcetam 500 MG/5 ML UDC NG SCH ×2 (09:27→20:00)
[2017-05-21] MEDS: CARVEDILOL 12.5 MG TAB PO SCH ×2 (09:27→20:00)
[2017-05-21] MEDS: CHLORHEXIDINE 0.12% (ORAL KIT) 15 ML CUP MT SCH ×2 (09:27→19:39)
[2017-05-21] MEDS: ARTIFICIAL TEARS OPTH OINT 3.5 APPLIC/3.5 GM TUBO EACH EYE SCH ×2 (09:33→19:40)
[2017-05-21] MEDS: DESMOPRESSIN ACETATE 4 MCG/ML VIAL SQ SCH ×2 (09:33→20:00)
[2017-05-21] MEDS: SODIUM CHLORIDE 0.9% FLUSH 10 ML FLUSH IV FLUSH SCH ×2 (09:33→19:40)
--- NOTE | 2017-05-21 10:06 | PD.CARD.PN ---
Subjective Subjective Remarks intubated, unresponsive off sedation Objective Medications Current Medications Medications (Trade) Dose Ordered Sig/Scarlett Route Start Time Stop Time Status Last Admin (Tylenol) 650 mg Q6H PRN PO 05/06/17 23:30 05/17/17 19:45 (Zofran Inj) 4 mg Q6H PRN IV PUSH 05/06/17 23:30 (Albuterol Neb) 2.5 mg Q2HR NEB PRN INH 05/06/17 23:30 Miscellaneous Information 1 Q361D XX 05/06/17 23:30 (Chlorhexidine 2% Cloth) Taper DAILY@04 TOP 05/07/17 04:00 05/03/18 03:59 05/21/17 02:57 (Chlorhexidine 2% Cloth) 3 pack UNSCH PRN TOP 05/06/17 23:30 (Aggie-Colace) 1 tab BID PO 05/07/17 09:00 05/21/17 09:26 (Milk Of Magnesia Liq) 30 ml Q12H PRN PO 05/06/17 23:30 (Senokot) 17.2 mg Q12H PRN PO 05/06/17 23:30 (Dulcolax Supp) 10 mg DAILY PRN RECTAL 05/06/17 23:30 (Peridex 0.12% Liq) 15 ml BID@08,20 MT 05/07/17 08:00 05/21/17 09:27 (NS Flush) 2 ml BID IV FLUSH 05/07/17 09:00 05/21/17 09:33 (NS Flush) 2 ml UNSCH PRN IV FLUSH 05/07/17 04:30 (Heparin Inj) 5,000 units Q12H SQ 05/07/17 05:00 05/21/17 04:22 (Lacrilube Opht Oint) 1 applic Q12HR EACH EYE 05/07/17 09:00 05/21/17 09:33 (Ecotrin Ec) 81 mg DAILY PO 05/08/17 09:00 05/21/17 09:26 (Lactulose Liq) 30 ml DAILY OG-TUBE 05/07/17 09:00 05/21/17 09:26 (D50w (Vial) Inj) 50 ml UNSCH PRN IV PUSH 05/08/17 00:30 (Glucagon Inj) 1 mg UNSCH PRN OTHER 05/08/17 00:30 (NovoLOG SUPPLEMENTAL SCALE) 1 Q4H SQ 05/08/17 00:30 05/21/17 08:30 (Apresoline Inj) 20 mg Q4H PRN IV PUSH 05/13/17 11:15 05/21/17 02:57 (Norvasc) 10 mg DAILY PO 05/14/17 09:15 05/21/17 09:26 (Depakene Liq) 250 mg BID NG 05/16/17 11:00 05/21/17 09:27 Potassium Chloride/Dextrose 1,000 ml @ 70 mls/hr [id number] IV 05/17/17 23:45 05/21/17 01:54 (Duoneb Neb) 1 ampule Q6HR NEB INH 05/18/17 10:00 05/21/17 08:09 (Free Water) 300 ml Q4HR G-TUBE 05/18/17 12:00 05/21/17 08:00 (Pepcid) 20 mg DAILY NG 05/18/17 09:00 05/21/17 09:26 (Keppra Liq) 1,000 mg Q12HR NG 05/18/17 09:00 05/21/17 09:27 (Neurontin Liq) 100 mg HS NG 05/18/17 21:00 05/19/17 22:56 (Ddavp Inj) 1 mcg Q12HR SQ 05/18/17 21:00 05/21/17 09:33 (Lanoxin) 0.125 mg DAILY PO 05/20/17 09:00 05/21/17 09:26 (Coreg) 25 mg BID PO 05/19/17 21:00 05/21/17 09:27 (Trandate Inj) 10 mg Q1H PRN IV 05/19/17 13:15 (Haldol Inj) 5 mg Q4H PRN IV 05/20/17 18:45 (Roxicodone Intensol Liq) 5 mg Q4H PO 05/20/17 19:00 05/21/17 06:14 (Cardizem) 30 mg Q6HR PO 05/20/17 18:45 05/21/17 06:13 Vital Signs / I&O Vital Signs Date Time Temp Pulse Resp B/P (MAP) Pulse Ox O2 Delivery O2 Flow Rate FiO2 05/21/17 08:06 100 35 05/21/17 06:00 92 05/21/17 04:19 99 35 05/21/17 04:00 45 05/21/17 04:00 97.7 90 16 143/66 (91) 99 05/21/17 04:00 90 05/21/17 02:00 85 05/21/17 01:08 98 35 05/21/17 00:00 97.7 81 16 169/68 (101) 100 05/21/17 00:00 45 05/21/17 00:00 81 05/20/17 22:12 99 35 05/20/17 22:00 81 05/20/17 20:11 99 35 05/20/17 20:00 97.6 74 16 155/70 (98) 99 05/20/17 20:00 45 05/20/17 20:00 74 05/20/17 18:00 74 05/20/17 16:10 100 100 05/20/17 16:00 74 05/20/17 16:00 97.8 74 16 146/70 (95) 98 05/20/17 15:55 98 35 05/20/17 14:00 72 05/20/17 13:30 100 35 05/20/17 12:00 98.4 73 16 141/64 (89) 97 05/20/17 12:00 73 05/20/17 12:00 35 I/O 05/20/17 05/20/17 05/20/17 05/21/17 05/21/17 05/21/17 07:00 15:00 23:00 07:00 15:00 23:00 Intake Total 2809 ml 50 ml 1729 ml 1372 ml Output Total 1300 ml 925 ml 950 ml 2200 ml Balance 1509 ml -875 ml 779 ml -828 ml Intake IV Total 1817 ml 50 ml 767 ml 1372 ml Tube Feeding 992 ml 362 ml Other 600 ml Output Urine Total 1300 ml 925 ml 950 ml 2200 ml # Bowel Movements 1 1 Physical Exam GENERAL: SKIN: Warm and dry. HEAD: Normocephalic. EYES: No scleral icterus. No injection or drainage. NECK: Supple, trachea midline. No JVD or lymphadenopathy. CARDIOVASCULAR: Regular rate and rhythm without murmurs, gallops, or rubs. RESPIRATORY: Breath sounds equal bilaterally. No accessory muscle use. GASTROINTESTINAL: Abdomen soft, non-tender, nondistended. MUSCULOSKELETAL: No cyanosis, or edema. BACK: Nontender without obvious deformity. No CVA tenderness. Laboratory Laboratory Tests Test 05/21/17 04:54 Blood Urea Nitrogen 18 MG/DL Creatinine 1.12 MG/DL Random Glucose 276 MG/DL Calcium Level 9.1 MG/DL Sodium Level 152 MEQ/L Potassium Level 3.2 MEQ/L Chloride Level 116 MEQ/L Carbon Dioxide Level 24.8 MEQ/L Anion Gap 11 MEQ/L Estimat Glomerular Filtration Rate 61 ML/MIN Assessment and Plan Problem List: (1) CAD (coronary artery disease) ICD Codes: I25.10 - Atherosclerotic heart disease of [place] coronary artery without angina pectoris (2) CHRONIC OBSTRUCTIVE PULMON DISEASE W ACUTE LOWER RESP INFCT ICD Codes: J44.0 - CHRONIC OBSTRUCTIVE PULMON DISEASE W ACUTE LOWER RESP INFCT Status: Acute (3) Cardiomyopathy ICD Codes: I42.9 - Cardiomyopathy Status: Acute (4) Cardiopulmonary arrest ICD Codes: I46.9 - Cardiac arrest, cause unspecified Status: Acute (5) Diabetes mellitus ICD Codes: E11.9 - Type 2 diabetes mellitus without complications Status: Acute Assessment and Plan 1.) Cardiomyopathy - euvolemic, obie and beta navya held due to recent cardiogenic shock and uncertain neurologic status 2.) CAD - continue aspirin, statin held due to shock liver and elevated lfts 3.) s/p trach, awaiting long term care pharmacist care Aguila Early MD May 21, 2017 10:06
--- NOTE | 2017-05-21 11:19 | HHI.CCPN ---
Subjective Remarks/Hospital Course 56-year-old female with past medical history of hypertension, chronic systolic heart failure, diabetes, COPD bipolar disorder, seizure disorder who presented to [facility] emergency department via E VAC following cardiac arrest. [facility] was originally called for shortness of breath and when they arrived patient was unresponsive and in PEA. Combitube was placed. CPR was initiated and patient was administered epinephrine 4, 1 amp bicarbonate, Narcan 2 mg prior to arrival via left tibial I/O. Blood glucose was 334. Exact duration of prehospital CPR is unclear. Combitube was removed and she was intubated upon arrival. Patient had ROSC 5 minutes after arrival. She received additional epinephrine 2 in the ED. She also received 1 L normal saline bolus, vancomycin, Zosyn in the ED. Critical care medicine is consulted for admission. EKG has no acute ischemia. SUBJ 05/07: Intubated sedated neuromuscularly paralyzed. Induced hypothermia initiated at 7 AM, 2-D echo shows EF 25-30%, mild to moderate MR. Serial troponins negative 05/08: Remains neuromuscularly paralyzed. Hypothermia will be completed by the known and rewarming was started. Remains off inotropes and pressors 05/09: Hypothermia protocol completed, placed overnight on Versed also in addition to propofol and fentanyl for tachycardia and asynchrony. Currently patient while on sedation do not open eyes with very slight withdrawal to pain 05/10: Developed Afib with RVR yesterday with HR in 200's DC cardioverted at night by Dr. Chu. Placed back on Versed. RN reports paroxysmal A fib. EEG pending at this time for subclinical sz. EEG 05/07 burst suppression pattern. Neuro prognosis poor 05/11: No neuro improvement. Creat worsening, nephrology consulted. EEG severe encephalopathy consistent with anoxic injury. Palliative care is following 05/12: There had been no improvement in neuro status after completion of code cool approximately 4 days ago. Patient has not shown not seen any signs of improvement. Palliative care met with family. Patient is developing multiorgan dysfunction syndrome. Daughter wants withdrawal of life support but wants to wait until some other family members can visit from [place] 05/13: No meaningful recovery yet. Opens eyes partially to pain. Weakly withdraws all extremities to pain. UO 1.8L in 24 hours. Family considering withdrawal of life support today, considering comorbidities and poor neuro recovery after cooling 05/14: Eyes are spontaneously open but with upward gaze. No tracking no response to threat. Withdraws bilateral upper extremity to pain. Had been off sedation more than 4 days 05/15: Neuro exam remains unchanged, even less eye-opening and withdrawal. Fever up to 103.5. Pancultured. Continue on vancomycin and Zosyn until cultures are back. 05/16: no improvements or changes to mental status. persistent encephalopathy. poor prognosis. family wants to wait until other family can be present. palliative care clarifying goals. 05/17: no changes to poor mental status. still awaiting family. hypernatremia worsening. nephrology following. Cr improving though; ahsan post-ATN diuresis. 05/18: Tmax 98.9. Positive gag. Positive corneal reflex. Blinks. Does not withdraw to pain. Went to A. fib with RVR the today requiring synchronous cardioversion with 200 J currently in sinus tachycardia. Given digoxin 0.5 mg IV now. 05/19: Afebrile. Has not brain injury. Daughter yesterday she says she was the patient trach and PEG. Started on desmopressin per nephrology yesterday. Sodium still remains elevated. 05/20: no improvements in severe encephalopathy. Daughter continues to want aggressive treatment. will proceed with trach and PEG, and pursue long-term placement. Subjective 05/21: no improvements in neuro exam. s/p trach yesterday. GI consulted for PEG. needs placement. sodium downtrending and improving. Objective Vital Signs Date Time Temp Pulse Resp B/P (MAP) Pulse Ox O2 Delivery O2 Flow Rate FiO2 05/21/17 10:45 74 16 130/63 (85) 99 05/21/17 08:06 35 05/21/17 08:00 98.6 Intake and Output 05/21/17 05/21/17 05/22/17 08:00 16:00 00:00 Intake Total 1372 ml Output Total 2200 ml Balance -828 ml Result Diagram: 05/20/17 0605 05/21/17 0454 Imaging Last Impressions Chest X-Ray 05/18/17 0000 Signed Impressions: Service Date/Time: Thursday, May 18, 2017 08:14 - CONCLUSION: ET tube tip that the upper thoracic level. Increasing left lower lung consolidation. Obi Barnes MD Abdomen Ultrasound 05/07/17 0000 Signed Impressions: Service Date/Time: Sunday, May 07, 2017 14:19 - CONCLUSION: 1. Echogenic liver compatible with fatty infiltration or hepatocellular disease. 2. Cholecystectomy Laith Coe MD Head CT [id number]/06/172123 Signed Impressions: Service Date/Time: Sunday, May 07, 2017 03:14 - CONCLUSION: Normal examination. Noé Ybarra MD CT Angiography 05/06/17 0000 Signed Impressions: Service Date/Time: Sunday, May 07, 2017 03:21 - CONCLUSION: 1. No pulmonary embolus. 2. Bibasilar areas of consolidation or atelectasis being worse on the left. There are minimal bilateral pleural effusions. Noé Ybarra MD Objective Remarks GENERAL: 56-year-old female who is trached, unresponsive. SKIN: Warm and dry. Well perfused HEAD: Atraumatic. Normocephalic. EYES: Bilateral exophthalmus. Pupils equal and round, reactive around 4 mm bilaterally. Positive corneal reflex ENT: No nasal bleeding or discharge. fresh tracheostomy in place without evidence of bleeding. NECK: Trachea midline. No JVD appreciated. No meningismus CARDIOVASCULAR: normal rate, regular rhythm. sinus by tele. RESPIRATORY: full mechanical support. fio2 35%. equal chest rise. GASTROINTESTINAL: Abdomen protuberant soft. No appreciable tenderness , rebound or guarding. : Benoit catheter is in place MUSCULOSKELETAL: Extremities without significant peripheral edema NEUROLOGICAL: Blinks.. Minimal partial eye opening to pain. Slight withdrawal to pain in all 4 ext upper extremities more than lower. Pupils as above. Positive gag. A/P Problem List: (1) Cardiac arrest ICD Code: I46.9 - Cardiac arrest, cause unspecified Status: Resolved (2) Anoxic-ischemic encephalopathy ICD Code: G93.1 - Anoxic brain damage, not elsewhere classified; I67.82 - Cerebral ischemia Status: Chronic (3) Chronic systolic heart failure ICD Code: I50.22 - Chronic systolic (congestive) heart failure Status: Chronic (4) Exophthalmos of both eyes ICD Code: H05.20 - Unspecified exophthalmos Status: Chronic (5) HTN (hypertension) ICD Code: I10 - Essential (primary) hypertension Status: Chronic (6) HLD (hyperlipidemia) ICD Code: E78.5 - Hyperlipidemia, unspecified Status: Chronic (7) Cardiogenic shock ICD Code: R57.0 - Cardiogenic shock Status: Resolved (8) Acute respiratory failure with hypercapnia ICD Code: J96.02 - Acute respiratory failure with hypercapnia Status: Chronic (9) Obesity (BMI 30-39.9) ICD Code: E66.9 - Obesity, unspecified Status: Chronic (10) CHF (congestive heart failure) ICD Code: I50.9 - CHF (congestive heart failure) Status: Resolved (11) Bipolar disorder ICD Code: F31.9 - Bipolar affective disorder Status: Chronic (12) COPD (chronic obstructive pulmonary disease) ICD Code: J44.9 - Chronic obstructive pulmonary disease Status: Chronic (13) Tobacco abuse ICD Code: Z72.0 - Tobacco use Status: Chronic Assessment and Plan Assessment: 56yF with severe hypoxic-ischemic encephalopathy. poor prognosis. family wants aggressive care. s/p trach and will need PEG. ongoing renal and electrolyte derangements persist but now improving. NEURO/PSYCH: Acute anoxic encephalopathy, severe Bipolar disorder Exophthalmus Status post completion of induced therapeutic hypothermia. initiated at 0700 , completed 05/08/17. Off sedation more than 7 days No neurologic improvement yet, prognosis poor. Neurology Dr. Solitario. CT brain - negative. Depakote level. 48. Was on Depakote for bipolar. restarted Depakote at 250 twice a day 500 daily at home Lactulose 30 daily. Ammonia level down to 31. Neg urine drug screen, APAP, ASA level. Resumed gabapentin 100 milligrams at night. Holding bupropion 150 mg daily EEG shows severe encephalopathy, burst suppression pattern. Repeat EEG severe encephalopathy RESP: Acute hypercapnic respiratory failure COPD Tobacco abuse Ventilator bundle. Albuterol/ipratropium aerosols q6 hours. Albuterol q2 hours prn. No Wheezing s/p perc trach 05/[address] Melvin and Mathieu. begin weaning from mechanical ventilation with SBTs and to trach collar as tolerated. may be slow wean. CV: s/p PEA cardiac arrest Post cardiac arrest syndrome with shock (resolved) Afib with RVR - resolved. Chronic systolic heart failure with ejection fraction 15-20% (25-30 on echo) Nonobstructive Coronary artery disease Essential Hypertension, uncontrolled Hyperlipidemia Holding valsartan 160 mg due to acute kidney injury. Carvedilol 12.5 mg twice a day increased to 25 mg twice a day and amlodipine 10 mg daily. use IV Hydralazine and labetalol PRN for SBP >170. DCCV for Afib RVR with HR 200/min. 2. Second time 05/18 Continue Cardizem for paroxysmal A fib and digoxin 0.125 mg daily EKG normal sinus rhythm rate of 99. No apparent acute ischemia. Follow-up serial EKGs and cardiac markers-negative. 2-D echo EF 25-30%. Cardiology Dr. Early Etiology of cardiac arrest unclear. Most likely due to hypercapnia and respiratory acidosis Continue aspirin 81 mg daily. Holding statin simvastatin 40 mg daily due to elevated LFTs. PO cardizem. GI: GERD Transaminitis, probable ischemic hepatopathy. Orogastric tube. RUQ us-fatty liver, hepatitis panel negative Tube feeds with Glucerna currently at 45 cc an hour Famotidine for GI prophylaxis Docusate sodium/senna twice a day for bowel regimen consult GI for PEG placement. FEN/RENAL: MARQUEZ Lactic acidemia Hypernatremia - slowly improving but persistent. Benoit in place. Monitor intake and output. Monitor electrolytes and replace as indicated. Hold home NSAID's. Creat improved today Nephrology consult for worsening creatinine. Dr. Hughes following. Nonoliguric renal failure Currently on D5 water with 20 KCl at 70 cc an hour. Free water 300 cc every 4 hours. Recheck sodium in AM. ID: High fever, sepsis Candiduria Bacteremia with strep viridans, Coag neg staph, pleomorphic GPR s/p full course of Vanc/Zosyn for strep bacteremia (2 weeks of vancomycin for GPC bacteremia). d/c and monitor clinically. Blood cultures 05/06 with strep radius, coag negative staph and pleomorphic gram -positive rods. Urine culture 05/03 with Lucinda albicans HEME: No acute hematologic issues. ENDO: Diabetes mellitus with acute hyperglycemia Hold metformin 1000 mg twice a day, glipizide 5 mg twice a day, insulin glargine 24 units daily. SSI Novulog every 4 hours/low Thyroid studies-essentially euthyroid PROPH: Sq heparin for DVT prophylaxis. Famotidine for stress ulcer prophylaxis and history of GERD ACCESS: Peripheral IV. Central line if indicated. ALT CODE. Palliative care following. Prognosis appears very poor. Level II follow-up Problem Qualifiers (1) HTN (hypertension): Qualified Codes: I10 - Essential (primary) hypertension Luis Manuel Melvin MD May 21, 2017 11:19
--- NOTE | 2017-05-21 12:28 | PD.CONS ---
HPI History of Present Illness This is a 56 year old female with past medical history of hypertension, chronic systolic heart failure, diabetes, COPD bipolar disorder, seizure disorder who presented to [facility] emergency department via E VAC following cardiac arrest. Family pushing for aggressive treatment. Gi have been consulted for PEG tube placement. Currently patient on a vent via trach. Has NG tube clamped. HPI was obtained from nurse and EMR. PFSH Past Medical History * COPD, with several hospital visits in recent years * Coronary artery disease, with moderate disease on cardiac cath in 2013 * Insulin-dependent diabetes for many years * History of seizure disorder * History of unspecified psychiatric illness resulting in permanent disability * Anxiety * Depression * Hyperlipidemia * Hypertension * GERD * Chronic back pain * History of peripheral neuropathy Past Surgical History * Tubal ligation years ago * Cholecystectomy many years ago * Heart cath 2013 * Right femoral arterial line, left femoral arterial line, left femoral heat exchange catheter 05/06/17 . Coded Allergies: No Known Allergies (Verified , 05/06/17) Medications Current Medications Medications (Trade) Dose Ordered Sig/Scarlett Route Start Time Stop Time Status Last Admin (Tylenol) 650 mg Q6H PRN PO 05/06/17 23:30 05/17/17 19:45 (Zofran Inj) 4 mg Q6H PRN IV PUSH 05/06/17 23:30 (Albuterol Neb) 2.5 mg Q2HR NEB PRN INH 05/06/17 23:30 Miscellaneous Information 1 Q361D XX 05/06/17 23:30 (Chlorhexidine 2% Cloth) Taper DAILY@04 TOP 05/07/17 04:00 05/03/18 03:59 05/21/17 02:57 (Chlorhexidine 2% Cloth) 3 pack UNSCH PRN TOP 05/06/17 23:30 (Aggie-Colace) 1 tab BID PO 05/07/17 09:00 05/21/17 09:26 (Milk Of Magnesia Liq) 30 ml Q12H PRN PO 05/06/17 23:30 (Senokot) 17.2 mg Q12H PRN PO 05/06/17 23:30 (Dulcolax Supp) 10 mg DAILY PRN RECTAL 05/06/17 23:30 (Peridex 0.12% Liq) 15 ml BID@08,20 MT 05/07/17 08:00 05/21/17 09:27 (NS Flush) 2 ml BID IV FLUSH 05/07/17 09:00 05/21/17 09:33 (NS Flush) 2 ml UNSCH PRN IV FLUSH 05/07/17 04:30 (Heparin Inj) 5,000 units Q12H SQ 05/07/17 05:00 05/21/17 04:22 (Lacrilube Opht Oint) 1 applic Q12HR EACH EYE 05/07/17 09:00 05/21/17 09:33 (Ecotrin Ec) 81 mg DAILY PO 05/08/17 09:00 05/21/17 09:26 (Lactulose Liq) 30 ml DAILY OG-TUBE 05/07/17 09:00 05/21/17 09:26 (D50w (Vial) Inj) 50 ml UNSCH PRN IV PUSH 05/08/17 00:30 (Glucagon Inj) 1 mg UNSCH PRN OTHER 05/08/17 00:30 (NovoLOG SUPPLEMENTAL SCALE) 1 Q4H SQ 05/08/17 00:30 05/21/17 11:56 (Apresoline Inj) 20 mg Q4H PRN IV PUSH 05/13/17 11:15 05/21/17 02:57 (Norvasc) 10 mg DAILY PO 05/14/17 09:15 05/21/17 09:26 (Depakene Liq) 250 mg BID NG 05/16/17 11:00 05/21/17 09:27 Potassium Chloride/Dextrose 1,000 ml @ 70 mls/hr [id number] IV 05/17/17 23:45 05/21/17 01:54 (Duoneb Neb) 1 ampule Q6HR NEB INH 05/18/17 10:00 05/21/17 08:09 (Free Water) 300 ml Q4HR G-TUBE 05/18/17 12:00 05/21/17 11:56 (Pepcid) 20 mg DAILY NG 05/18/17 09:00 05/21/17 09:26 (Keppra Liq) 1,000 mg Q12HR NG 05/18/17 09:00 05/21/17 09:27 (Neurontin Liq) 100 mg HS NG 05/18/17 21:00 05/19/17 22:56 (Ddavp Inj) 1 mcg Q12HR SQ 05/18/17 21:00 05/21/17 09:33 (Lanoxin) 0.125 mg DAILY PO 05/20/17 09:00 05/21/17 09:26 (Coreg) 25 mg BID PO 05/19/17 21:00 05/21/17 09:27 (Trandate Inj) 10 mg Q1H PRN IV 05/19/17 13:15 (Haldol Inj) 5 mg Q4H PRN IV 05/20/17 18:45 (Roxicodone Intensol Liq) 5 mg Q4H PO 05/20/17 19:00 05/21/17 11:01 (Cardizem) 30 mg Q6HR PO 05/20/17 18:45 05/21/17 11:56 Family History The patient's mother and father reportedly both had diabetes, but there is no family history of COPD. . Social History Not able to obtain, patient is vented Review of Systems ROS Not able to obtain, patient is vented GI Exam Vitals I&O Vital Signs Date Time Temp Pulse Resp B/P (MAP) Pulse Ox O2 Delivery O2 Flow Rate FiO2 05/21/17 11:30 100 35 05/21/17 10:45 74 16 130/63 (85) 99 05/21/17 10:30 75 16 138/57 (84) 99 05/21/17 10:15 85 16 158/72 (100) 96 05/21/17 10:00 87 05/21/17 10:00 87 16 142/57 (85) 98 05/21/17 09:45 92 16 152/68 (96) 98 05/21/17 09:30 97 16 165/72 (103) 97 05/21/17 09:15 93 16 154/72 (99) 99 05/21/17 09:00 93 16 165/72 (103) 98 05/21/17 08:45 99 22 188/80 (116) 96 05/21/17 08:30 86 16 145/67 (93) 100 05/21/17 08:15 88 16 140/67 (91) 100 05/21/17 08:06 100 35 05/21/17 08:00 35 05/21/17 08:00 86 05/21/17 08:00 98.6 86 16 139/65 (89) 99 05/21/17 07:45 87 16 137/63 (87) 99 05/21/17 07:30 87 16 141/64 (89) 99 05/21/17 07:15 88 16 143/65 (91) 98 05/21/17 07:00 86 16 138/63 (88) 99 05/21/17 06:00 92 05/21/17 04:19 99 35 05/21/17 04:00 45 05/21/17 04:00 97.7 90 16 143/66 (91) 99 05/21/17 04:00 90 05/21/17 02:00 85 05/21/17 01:08 98 35 05/21/17 00:00 97.7 81 16 169/68 (101) 100 05/21/17 00:00 45 05/21/17 00:00 81 05/20/17 22:12 99 35 05/20/17 22:00 81 05/20/17 20:11 99 35 05/20/17 20:00 97.6 74 16 155/70 (98) 99 05/20/17 20:00 45 05/20/17 20:00 74 05/20/17 18:00 74 05/20/17 16:10 100 100 05/20/17 16:00 74 05/20/17 16:00 97.8 74 16 146/70 (95) 98 05/20/17 15:55 98 35 05/20/17 14:00 72 05/20/17 13:30 100 35 I/O 05/20/17 05/20/17 05/20/17 05/21/17 05/21/17 05/21/17 07:00 15:00 23:00 07:00 15:00 23:00 Intake Total 2809 ml 50 ml 1729 ml 1372 ml Output Total 1300 ml 925 ml 950 ml 2200 ml Balance 1509 ml -875 ml 779 ml -828 ml Intake IV Total 1817 ml 50 ml 767 ml 1372 ml Tube Feeding 992 ml 362 ml Other 600 ml Output Urine Total 1300 ml 925 ml 950 ml 2200 ml # Bowel Movements 1 1 Imaging Last Impressions Chest X-Ray 05/20/17 06 Signed Impressions: Service Date/Time: Saturday, May 20, 2017 04:24 - CONCLUSION: Appropriate tube positions. Clear lungs. Noé Sloan MD Abdomen Ultrasound 05/07/17 0000 Signed Impressions: Service Date/Time: Sunday, May 07, 2017 14:19 - CONCLUSION: 1. Echogenic liver compatible with fatty infiltration or hepatocellular disease. 2. Cholecystectomy Laith Coe MD Head CT 05/06/172123 Signed Impressions: Service Date/Time: Sunday, May 07, 2017 03:14 - CONCLUSION: Normal examination. Noé Ybarra MD CT Angiography 05/06/17 0000 Signed Impressions: Service Date/Time: Sunday, May 07, 2017 03:21 - CONCLUSION: 1. No pulmonary embolus. 2. Bibasilar areas of consolidation or atelectasis being worse on the left. There are minimal bilateral pleural effusions. Noé Ybarra MD Laboratory Test 05/21/17 04:54 Blood Urea Nitrogen 18 MG/DL Creatinine 1.12 MG/DL Random Glucose 276 MG/DL Calcium Level 9.1 MG/DL Sodium Level 152 MEQ/L Potassium Level 3.2 MEQ/L Chloride Level 116 MEQ/L Carbon Dioxide Level 24.8 MEQ/L Anion Gap 11 MEQ/L Estimat Glomerular Filtration Rate 61 ML/MIN Date/Time Source Procedure Growth Status 05/14/17 11:30 Blood Peripheral Aerobic Blood Culture - Final NO GROWTH IN 5 DAYS Complete 05/14/17 11:30 Blood Peripheral Anaerobic Blood Culture - Final NO GROWTH IN 5 DAYS Complete 05/15/17 00:30 Sputum Endotracheal Gram Stain - Final Complete 05/15/17 00:30 Sputum Endotracheal Sputum Culture - Final HEAVY GROWTH NORMAL RESPIRATORY JORDEN Complete 05/14/17 21:45 Urine Catheterized Urine Urine Culture - Final Lucinda Albicans Complete Physical Examination HEENT:normocephalic; atraumatic; no jaundice. NECK: trach CHEST: Chest is clear to auscultation and percussion. CARDIAC: Regular rate and rhythm with no murmur gallop or rubs. ABDOMEN: Soft, nondistended, bowel sounds are present in all four quadrants. EXTREMITIES: No clubbing, cyanosis, or edema. SKIN: Normal; no rash; no jaundice. FRUCTOSE LOADER: Sedated on a vent . Assessment and Plan Plan - Dysphagia/ requiring halfway enteral feeding- Will plan for EGD/PEG on Zechariah This is a 56 year old female with past medical history of hypertension, chronic systolic heart failure, diabetes, COPD bipolar disorder, seizure disorder who presented to [facility] emergency department via E VAC following cardiac arrest. Family pushing for aggressive treatment. Gi have been consulted for PEG tube placement. Currently patient on a vent via trach. Has NG tube clamped. HPI was obtained from nurse and EMR. 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 to and myself and this note is written on his behalf. Prudencio Hutchinson May 21, 2017 12:28
[2017-05-21] MEDS ORDERED: cefTRIAXone INJ 1,000 MG in SODIUM CHLORIDE 0.9% INJ 100 ML IV ONE (12:30)
--- NOTE | 2017-05-21 13:09 | HHI.NPPN ---
Subjective History of Present Illness 56 year old female with cardiomyopathy COPD CAD Anoxic bran injury and develop ARF. Additional Remarks Patient remain on the vent. comatose, Objective Data Data Vital Signs Date Time Temp Pulse Resp B/P (MAP) Pulse Ox O2 Delivery O2 Flow Rate FiO2 05/21/17 11:30 100 35 05/21/17 10:45 74 16 130/63 (85) 99 05/21/17 10:30 75 16 138/57 (84) 99 05/21/17 10:15 85 16 158/72 (100) 96 05/21/17 10:00 87 05/21/17 10:00 87 16 142/57 (85) 98 05/21/17 09:45 92 16 152/68 (96) 98 05/21/17 09:30 97 16 165/72 (103) 97 05/21/17 09:15 93 16 154/72 (99) 99 05/21/17 09:00 93 16 165/72 (103) 98 05/21/17 08:45 99 22 188/80 (116) 96 05/21/17 08:30 86 16 145/67 (93) 100 05/21/17 08:15 88 16 140/67 (91) 100 05/21/17 08:06 100 35 05/21/17 08:00 35 05/21/17 08:00 86 05/21/17 08:00 98.6 86 16 139/65 (89) 99 05/21/17 07:45 87 16 137/63 (87) 99 05/21/17 07:30 87 16 141/64 (89) 99 05/21/17 07:15 88 16 143/65 (91) 98 05/21/17 07:00 86 16 138/63 (88) 99 05/21/17 06:00 92 05/21/17 04:19 99 35 05/21/17 04:00 45 05/21/17 04:00 97.7 90 16 143/66 (91) 99 05/21/17 04:00 90 05/21/17 02:00 85 05/21/17 01:08 98 35 05/21/17 00:00 97.7 81 16 169/68 (101) 100 05/21/17 00:00 45 05/21/17 00:00 81 05/20/17 22:12 99 35 05/20/17 22:00 81 05/20/17 20:11 99 35 05/20/17 20:00 97.6 74 16 155/70 (98) 99 05/20/17 20:00 45 05/20/17 20:00 74 05/20/17 18:00 74 05/20/17 16:10 100 100 05/20/17 16:00 74 05/20/17 16:00 97.8 74 16 146/70 (95) 98 05/20/17 15:55 98 35 05/20/17 14:00 72 05/20/17 13:30 100 35 -: 05/20/17 0605 05/21/17 0454 Physical Exam Neck Neck Exam: Neck Supple Pulmonary Resp Exam: Breath Sounds Equal, Rhonchi, Decreased Bases, Poor Inspiratory Effort Cardiology CV Exam: Regular Gastrointestinal/Abdomen GI Exam: Soft, Bowel Sounds Present, Distended Extremeties Extremities Exam: Moderate Edema Neurologic Neuro Exam: Unresponsive Assessment/Plan Problem List: (1) Acute renal failure ICD Codes: N17.9 - Acute kidney failure, unspecified Plan: Patient with acute renal failure cardiomyopathy CHF coronary syndrome ATN ARF/CKD stable but she has anoxic brain injury and will be on Ventilator support Her prognosis is poor due to anoxic brain injury BMP Na 152 /Cr 1.12 given DDAVP 2mcg Replace potassium with KCl water flushes Follow the urine out put and BMP. (2) Cardiopulmonary arrest ICD Codes: I46.9 - Cardiac arrest, cause unspecified Status: Acute Plan: Critical care following (3) Cardiogenic shock ICD Codes: R57.0 - Cardiogenic shock Status: Resolved Plan: Cardiomyopathy (4) Anoxic encephalopathy ICD Codes: G93.1 - Anoxic brain damage, not elsewhere classified Status: Acute Plan: Brain injury with no recovery (5) Cardiomyopathy ICD Codes: I42.9 - Cardiomyopathy Status: Acute Plan: EF of 20% Problem Qualifiers (1) Acute renal failure: Qualified Codes: N17.0 - Acute kidney failure with tubular necrosis Apollo Hughes MD May 21, 2017 13:09
[2017-05-21] MEDS ORDERED: POTASSIUM CHLORIDE INJ 30 MEQ in SODIUM CHLORIDE 0.9% INJ 100 ML IV-CENTRAL ONE (13:15)
[2017-05-21] MEDS: POTASSIUM CHLOR 10 MEQ PREMIX 100 ML IV SCH ×3 (16:05→18:01)
[2017-05-21] MEDS: GABAPENTIN 250 MG/5 ML UDC NG SCH (20:00)
[2017-05-22] VITALS (17 sets, daily range): BP systolic 135–172; BP diastolic 64–76; PULSE 79–101; RESP 16–21; TEMP 98.8–100.5; O2SAT 94–99
[2017-05-22] MEDS: INSULIN ASPART SUPPLEMENTAL SCALE SQ SCH ×6 (00:16→21:54)
[2017-05-22] MEDS: RESP: ALBUTEROL 2.5 MG/IPRATROPIUM 0.5 MG NEB (SCH) INH ×2 (03:16→08:35)
[2017-05-22] MEDS: CHLORHEXIDINE GLUCONATE 2 % 1 PACK (2 CLOTHS) TOP SCH (03:29)
[2017-05-22] MEDS: FREE WATER G-TUBE SCH ×6 (04:00→18:11)
[2017-05-22] MEDS: DILTIAZEM HCL 30 MG TAB PO SCH ×4 (04:26→18:10)
[2017-05-22] MEDS: oxyCODONE HCL ORAL CONC 5 MG/0.25 ML SYRINGE PO SCH ×7 (04:26→21:55)
[2017-05-22] MEDS: HEPARIN SODIUM - SQ 10,000 UNITS/ML VIAL SQ SCH (04:27)
[2017-05-22] MEDS: D5W + KCL 20 MEQ INJ 1,000 ML IV SCH ×2 (04:27→18:09)
[2017-05-22 05:55] LABS: BICARBONATE 26.7 MEQ/L (21.0-32.0); POTASSIUM 3.7 MEQ/L (3.5-5.1)
[2017-05-22] MEDS: DOCUSATE SODIUM 50 MG/SENNA 8.6 MG TAB PO SCH ×2 (09:00→21:00)
[2017-05-22] MEDS: SODIUM CHLORIDE 0.9% FLUSH 10 ML FLUSH IV FLUSH SCH ×2 (09:00→21:00)
[2017-05-22] MEDS: ASPIRIN EC 81 MG TABEC PO SCH (09:00)
[2017-05-22] MEDS: LACTULOSE SYRUP 20 GM/30 ML CUP OG-TUBE SCH (09:00)
--- NOTE | 2017-05-22 09:37 | HHI.GIFU ---
Subjective Remarks Sedated on vent. Patient is in no apparent distress. Objective Vitals I&O Vital Signs Date Time Temp Pulse Resp B/P (MAP) Pulse Ox O2 Delivery O2 Flow Rate FiO2 05/22/17 08:35 96 35 05/22/17 06:00 91 05/22/17 04:15 97 35 05/22/17 04:00 35 05/22/17 04:00 98.9 84 16 147/67 (93) 99 05/22/17 04:00 84 05/22/17 02:00 79 05/22/17 01:57 97 35 05/22/17 00:00 35 05/22/17 00:00 79 05/22/17 00:00 98.8 79 18 135/67 (89) 98 05/21/17 22:13 99 35 05/21/17 22:00 73 05/21/17 20:07 100 35 05/21/17 20:00 35 05/21/17 20:00 77 05/21/17 20:00 98.0 77 16 140/62 (88) 98 05/21/17 18:00 76 05/21/17 16:30 78 21 154/74 (100) 98 05/21/17 16:20 98 35 05/21/17 16:15 78 15 135/64 (87) 98 05/21/17 16:00 35 05/21/17 16:00 98.1 79 16 135/65 (88) 97 05/21/17 16:00 79 05/21/17 15:45 78 20 140/73 (95) 99 05/21/17 15:30 75 15 135/67 (89) 100 05/21/17 15:15 71 14 132/69 (90) 100 05/21/17 15:00 72 15 131/62 (85) 100 05/21/17 14:45 71 16 129/63 (85) 99 05/21/17 14:30 72 15 130/64 (86) 100 05/21/17 14:15 74 22 127/61 (83) 97 05/21/17 14:00 71 15 127/61 (83) 99 05/21/17 14:00 71 05/21/17 13:15 71 16 128/61 (83) 99 05/21/17 13:00 71 15 124/59 (80) 99 05/21/17 12:45 71 15 126/60 (82) 99 05/21/17 12:30 72 15 125/59 (81) 100 05/21/17 12:15 72 16 136/66 (89) 99 05/21/17 12:00 72 05/21/17 12:00 98.3 72 16 131/67 (88) 100 05/21/17 12:00 35 05/21/17 11:45 70 15 131/63 (85) 100 05/21/17 11:30 100 35 05/21/17 11:30 74 16 127/59 (81) 98 05/21/17 11:16 74 16 125/62 (83) 99 05/21/17 11:00 77 16 145/63 (90) 98 05/21/17 10:45 74 16 130/63 (85) 99 05/21/17 10:30 75 16 138/57 (84) 99 05/21/17 10:15 85 16 158/72 (100) 96 05/21/17 10:00 87 05/21/17 10:00 87 16 142/57 (85) 98 05/21/17 09:45 92 16 152/68 (96) 98 I/O 05/21/17 05/21/17 05/21/17 05/22/17 05/22/17 05/22/17 07:00 15:00 23:00 07:00 15:00 23:00 Intake Total 1372 ml 674 ml 1126 ml 2240 ml Output Total 2200 ml 1000 ml 875 ml Balance -828 ml 674 ml 126 ml 1365 ml Intake IV Total 1372 ml 674 ml 510 ml 1000 ml Tube Feeding 16 ml 240 ml Tube Irrigant 100 ml Other 600 ml 900 ml Output Urine Total 2200 ml 1000 ml 875 ml # Bowel Movements 1 0 1 Laboratory Laboratory Tests Test 05/22/17 04:40 Blood Urea Nitrogen 16 Creatinine 1.14 Random Glucose 281 Calcium Level 9.0 Sodium Level 146 Potassium Level 3.7 Chloride Level 111 Carbon Dioxide Level 26.7 Anion Gap 8 Estimat Glomerular Filtration Rate 59 Date/Time Source Procedure Growth Status 05/14/17 11:30 Blood Peripheral Aerobic Blood Culture - Final NO GROWTH IN 5 DAYS Complete 05/14/17 11:30 Blood Peripheral Anaerobic Blood Culture - Final NO GROWTH IN 5 DAYS Complete 05/15/17 00:30 Sputum Endotracheal Gram Stain - Final Complete 05/15/17 00:30 Sputum Endotracheal Sputum Culture - Final HEAVY GROWTH NORMAL RESPIRATORY JORDEN Complete 05/14/17 21:45 Urine Catheterized Urine Urine Culture - Final Lucinda Albicans Complete Imaging Last Impressions Chest X-Ray 05/20/17 0600 Signed Impressions: Service Date/Time: Saturday, May 20, 2017 04:24 - CONCLUSION: Appropriate tube positions. Clear lungs. Noé Sloan MD Abdomen Ultrasound 05/07/17 0000 Signed Impressions: Service Date/Time: Sunday, May 07, 2017 14:19 - CONCLUSION: 1. Echogenic liver compatible with fatty infiltration or hepatocellular disease. 2. Cholecystectomy Laith Coe MD Head CT [id number] Signed Impressions: Service Date/Time: Sunday, May 07, 2017 03:14 - CONCLUSION: Normal examination. Noé Ybarra MD CT Angiography 05/06/17 0000 Signed Impressions: Service Date/Time: Sunday, May 07, 2017 03:21 - CONCLUSION: 1. No pulmonary embolus. 2. Bibasilar areas of consolidation or atelectasis being worse on the left. There are minimal bilateral pleural effusions. Noé Ybarra MD Physical Exam HEENT: Normocephalic NECK: Trach. CHEST: CTA CARDIAC: RRR with no murmur gallop or rubs. ABDOMEN: Soft, nondistended, bowel sounds are present in all four quadrants. EXTREMITIES: No clubbing, cyanosis, or edema. SKIN: Normal; no rash; no jaundice. 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 Family requesting aggressive treatment. EGD/PEG on Tuesday - S/P cardiac arrest. 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 Rivera and myself and this note is written on his behalf. Lolly Serrato May 22, 2017 09:37
[2017-05-22] MEDS: CHLORHEXIDINE 0.12% (ORAL KIT) 15 ML CUP MT SCH ×2 (10:17→20:00)
[2017-05-22] MEDS: ARTIFICIAL TEARS OPTH OINT 3.5 APPLIC/3.5 GM TUBO EACH EYE SCH ×2 (10:18→21:00)
[2017-05-22] MEDS: FAMOTIDINE 20 MG TAB NG SCH (10:19)
[2017-05-22] MEDS: levETIRAcetam 500 MG/5 ML UDC NG SCH ×2 (10:19→21:03)
[2017-05-22] MEDS: VALPROIC ACID SYRUP 250 MG/5 ML UDC NG SCH ×2 (10:19→21:03)
[2017-05-22] MEDS: CARVEDILOL 12.5 MG TAB PO SCH ×2 (10:20→21:02)
[2017-05-22] MEDS: DIGOXIN 0.125 MG TAB PO SCH (10:20)
[2017-05-22] MEDS: DESMOPRESSIN ACETATE 4 MCG/ML VIAL SQ SCH ×2 (10:21→21:00)
--- NOTE | 2017-05-22 11:42 | PD.CARD.PN ---
Subjective Subjective Remarks s/p tracheotomy, unresponsive off sedation Objective Medications Current Medications Medications (Trade) Dose Ordered Sig/Scarlett Route Start Time Stop Time Status Last Admin (Tylenol) 650 mg Q6H PRN PO 05/06/17 23:30 05/17/17 19:45 (Zofran Inj) 4 mg Q6H PRN IV PUSH 05/06/17 23:30 (Albuterol Neb) 2.5 mg Q2HR NEB PRN INH 05/06/17 23:30 Miscellaneous Information 1 Q361D XX 05/06/17 23:30 (Chlorhexidine 2% Cloth) Taper DAILY@04 TOP 05/07/17 04:00 05/03/18 03:59 05/21/17 02:57 (Chlorhexidine 2% Cloth) 3 pack UNSCH PRN TOP 05/06/17 23:30 (Aggie-Colace) 1 tab BID PO 05/07/17 09:00 05/21/17 20:00 (Milk Of Magnesia Liq) 30 ml Q12H PRN PO 05/06/17 23:30 (Senokot) 17.2 mg Q12H PRN PO 05/06/17 23:30 (Dulcolax Supp) 10 mg DAILY PRN RECTAL 05/06/17 23:30 (Peridex 0.12% Liq) 15 ml BID@08,20 MT 05/07/17 08:00 05/22/17 10:17 (NS Flush) 2 ml BID IV FLUSH 05/07/17 09:00 05/22/17 09:00 (NS Flush) 2 ml UNSCH PRN IV FLUSH 05/07/17 04:30 (Heparin Inj) 5,000 units Q12H SQ 05/07/17 05:00 05/22/17 04:27 (Lacrilube Opht Oint) 1 applic Q12HR EACH EYE 05/07/17 09:00 05/22/17 10:18 (Ecotrin Ec) 81 mg DAILY PO 05/08/17 09:00 05/21/17 09:26 (Lactulose Liq) 30 ml DAILY OG-TUBE 05/07/17 09:00 05/21/17 09:26 (D50w (Vial) Inj) 50 ml UNSCH PRN IV PUSH 05/08/17 00:30 (Glucagon Inj) 1 mg UNSCH PRN OTHER 05/08/17 00:30 (NovoLOG SUPPLEMENTAL SCALE) 1 Q4H SQ 05/08/17 00:30 05/22/17 10:17 (Apresoline Inj) 20 mg Q4H PRN IV PUSH 05/13/17 11:15 05/21/17 02:57 (Norvasc) 10 mg DAILY PO 05/14/17 09:15 05/22/17 10:19 (Depakene Liq) 250 mg BID NG 05/16/17 11:00 05/22/17 10:19 Potassium Chloride/Dextrose 1,000 ml @ 70 mls/hr [id number] IV 05/17/17 23:45 05/22/17 04:27 (Free Water) 300 ml Q4HR G-TUBE 05/18/17 12:00 05/22/17 08:00 (Pepcid) 20 mg DAILY NG 05/18/17 09:00 05/22/17 10:19 (Keppra Liq) 1,000 mg Q12HR NG 05/18/17 09:00 05/22/17 10:19 (Neurontin Liq) 100 mg HS NG 05/18/17 21:00 05/21/17 20:00 (Lanoxin) 0.125 mg DAILY PO 05/20/17 09:00 05/22/17 10:20 (Coreg) 25 mg BID PO 05/19/17 21:00 05/22/17 10:20 (Trandate Inj) 10 mg Q1H PRN IV 05/19/17 13:15 (Haldol Inj) 5 mg Q4H PRN IV 05/20/17 18:45 (Roxicodone Intensol Liq) 5 mg Q4H PO 05/20/17 19:00 05/22/17 06:17 (Cardizem) 30 mg Q6HR PO 05/20/17 18:45 05/22/17 04:26 (Ddavp Inj) 2 mcg Q12HR SQ 05/21/17 21:00 05/22/17 10:21 Vital Signs / I&O Vital Signs Date Time Temp Pulse Resp B/P (MAP) Pulse Ox O2 Delivery O2 Flow Rate FiO2 05/22/17 10:00 91 05/22/17 10:00 101 05/22/17 08:35 96 35 05/22/17 08:00 35 05/22/17 08:00 100.5 97 17 172/76 (108) 96 05/22/17 08:00 97 05/22/17 06:00 91 05/22/17 04:15 97 35 05/22/17 04:00 35 05/22/17 04:00 98.9 84 16 147/67 (93) 99 05/22/17 04:00 84 05/22/17 02:00 79 05/22/17 01:57 97 35 05/22/17 00:00 35 05/22/17 00:00 79 05/22/17 00:00 98.8 79 18 135/67 (89) 98 05/21/17 22:13 99 35 05/21/17 22:00 73 05/21/17 20:07 100 35 05/21/17 20:00 35 05/21/17 20:00 77 05/21/17 20:00 98.0 77 16 140/62 (88) 98 05/21/17 18:00 76 05/21/17 16:30 78 21 154/74 (100) 98 05/21/17 16:20 98 35 05/21/17 16:15 78 15 135/64 (87) 98 05/21/17 16:00 35 05/21/17 16:00 98.1 79 16 135/65 (88) 97 05/21/17 16:00 79 05/21/17 15:45 78 20 140/73 (95) 99 05/21/17 15:30 75 15 135/67 (89) 100 05/21/17 15:15 71 14 132/69 (90) 100 05/21/17 15:00 72 15 131/62 (85) 100 05/21/17 14:45 71 16 129/63 (85) 99 05/21/17 14:30 72 15 130/64 (86) 100 05/21/17 14:15 74 22 127/61 (83) 97 05/21/17 14:00 71 15 127/61 (83) 99 05/21/17 14:00 71 05/21/17 13:15 71 16 128/61 (83) 99 05/21/17 13:00 71 15 124/59 (80) 99 05/21/17 12:45 71 15 126/60 (82) 99 05/21/17 12:30 72 15 125/59 (81) 100 05/21/17 12:15 72 16 136/66 (89) 99 05/21/17 12:00 72 05/21/17 12:00 98.3 72 16 131/67 (88) 100 05/21/17 12:00 35 05/21/17 11:45 70 15 131/63 (85) 100 I/O 05/21/17 05/21/17 05/21/17 05/22/17 05/22/17 05/22/17 07:00 15:00 23:00 07:00 15:00 23:00 Intake Total 1372 ml 674 ml 1126 ml 2240 ml Output Total 2200 ml 1000 ml 875 ml Balance -828 ml 674 ml 126 ml 1365 ml Intake IV Total 1372 ml 674 ml 510 ml 1000 ml Tube Feeding 16 ml 240 ml Tube Irrigant 100 ml Other 600 ml 900 ml Output Urine Total 2200 ml 1000 ml 875 ml # Bowel Movements 1 0 1 Physical Exam GENERAL: SKIN: Warm and dry. HEAD: Normocephalic. EYES: No scleral icterus. No injection or drainage. NECK: Supple, trachea midline. No JVD or lymphadenopathy. CARDIOVASCULAR: Regular rate and rhythm without murmurs, gallops, or rubs. RESPIRATORY: Breath sounds equal bilaterally. No accessory muscle use. GASTROINTESTINAL: Abdomen soft, non-tender, nondistended. MUSCULOSKELETAL: No cyanosis, or edema. BACK: Nontender without obvious deformity. No CVA tenderness. Laboratory Laboratory Tests Test 05/22/17 04:40 Blood Urea Nitrogen 16 MG/DL Creatinine 1.14 MG/DL Random Glucose 281 MG/DL Calcium Level 9.0 MG/DL Sodium Level 146 MEQ/L Potassium Level 3.7 MEQ/L Chloride Level 111 MEQ/L Carbon Dioxide Level 26.7 MEQ/L Anion Gap 8 MEQ/L Estimat Glomerular Filtration Rate 59 ML/MIN Assessment and Plan Problem List: (1) CAD (coronary artery disease) ICD Codes: I25.10 - Atherosclerotic heart disease of [place] coronary artery without angina pectoris (2) CHRONIC OBSTRUCTIVE PULMON DISEASE W ACUTE LOWER RESP INFCT ICD Codes: J44.0 - CHRONIC OBSTRUCTIVE PULMON DISEASE W ACUTE LOWER RESP INFCT Status: Acute (3) Cardiomyopathy ICD Codes: I42.9 - Cardiomyopathy Status: Acute (4) Cardiopulmonary arrest ICD Codes: I46.9 - Cardiac arrest, cause unspecified Status: Acute (5) Diabetes mellitus ICD Codes: E11.9 - Type 2 diabetes mellitus without complications Status: Acute Assessment and Plan 1.) Cardiomyopathy - euvolemic, continue coreg 25 mg bid, start altace 2.5 mg qd , f/u bnp/bmp 2.) CAD - continue aspirin, statin held due to shock liver and elevated lfts 3.) s/p trach, awaiting [facility] care 4.) PAF - continue dig, cardizem, coreg, defer ac determination to neuro Aguila Early MD May 22, 2017 11:42
[2017-05-22] MEDS ORDERED: RAMIPRIL 2.5 MG CAP PO ONE (11:45)
--- NOTE | 2017-05-22 12:26 | HHI.NPPN ---
Subjective History of Present Illness 56 year old female with cardiomyopathy COPD CAD Anoxic bran injury and develop ARF. Additional Remarks Patient remain comatose off sherry on T tube O2 Objective Data Data Vital Signs Date Time Temp Pulse Resp B/P (MAP) Pulse Ox O2 Delivery O2 Flow Rate FiO2 05/22/17 10:00 91 05/22/17 10:00 101 05/22/17 08:35 96 35 05/22/17 08:00 35 05/22/17 08:00 100.5 97 17 172/76 (108) 96 05/22/17 08:00 97 05/22/17 06:00 91 05/22/17 04:15 97 35 05/22/17 04:00 35 05/22/17 04:00 98.9 84 16 147/67 (93) 99 05/22/17 04:00 84 05/22/17 02:00 79 05/22/17 01:57 97 35 05/22/17 00:00 35 05/22/17 00:00 79 05/22/17 00:00 98.8 79 18 135/67 (89) 98 05/21/17 22:13 99 35 05/21/17 22:00 73 05/21/17 20:07 100 35 05/21/17 20:00 35 05/21/17 20:00 77 05/21/17 20:00 98.0 77 16 140/62 (88) 98 05/21/17 18:00 76 05/21/17 16:30 78 21 154/74 (100) 98 05/21/17 16:20 98 35 05/21/17 16:15 78 15 135/64 (87) 98 05/21/17 16:00 35 05/21/17 16:00 98.1 79 16 135/65 (88) 97 05/21/17 16:00 79 05/21/17 15:45 78 20 140/73 (95) 99 05/21/17 15:30 75 15 135/67 (89) 100 05/21/17 15:15 71 14 132/69 (90) 100 05/21/17 15:00 72 15 131/62 (85) 100 05/21/17 14:45 71 16 129/63 (85) 99 05/21/17 14:30 72 15 130/64 (86) 100 05/21/17 14:15 74 22 127/61 (83) 97 05/21/17 14:00 71 15 127/61 (83) 99 05/21/17 14:00 71 05/21/17 13:15 71 16 128/61 (83) 99 05/21/17 13:00 71 15 124/59 (80) 99 05/21/17 12:45 71 15 126/60 (82) 99 05/21/17 12:30 72 15 125/59 (81) 100 -: 05/20/17 0605 05/22/17 0440 Physical Exam Neck Neck Exam: Neck Supple Pulmonary Resp Exam: Breath Sounds Equal, Rhonchi, Decreased Bases, Poor Inspiratory Effort Cardiology CV Exam: Regular Gastrointestinal/Abdomen GI Exam: Soft, Bowel Sounds Present, Distended Extremeties Extremities Exam: Moderate Edema Neurologic Neuro Exam: Unresponsive Assessment/Plan Problem List: (1) Acute renal failure ICD Codes: N17.9 - Acute kidney failure, unspecified Plan: Patient with acute renal failure cardiomyopathy CHF coronary syndrome ATN ARF/CKD stable but she has anoxic brain injury and will be on Ventilator support Her prognosis is poor due to anoxic brain injury BMP Na 146 /Cr 1.1 given DDAVP 2mcg q 12 water flushes Follow the urine out put and BMP. (2) Cardiopulmonary arrest ICD Codes: I46.9 - Cardiac arrest, cause unspecified Status: Acute Plan: Critical care following (3) Cardiogenic shock ICD Codes: R57.0 - Cardiogenic shock Status: Resolved Plan: Cardiomyopathy (4) Anoxic encephalopathy ICD Codes: G93.1 - Anoxic brain damage, not elsewhere classified Status: Acute Plan: Brain injury with no recovery (5) Cardiomyopathy ICD Codes: I42.9 - Cardiomyopathy Status: Acute Plan: EF of 20% Problem Qualifiers (1) Acute renal failure: Qualified Codes: N17.0 - Acute kidney failure with tubular necrosis Apollo Hughes MD May 22, 2017 12:26
--- NOTE | 2017-05-22 14:31 | HHI.CCPN ---
Subjective Remarks/Hospital Course 56-year-old female with past medical history of hypertension, chronic systolic heart failure, diabetes, COPD bipolar disorder, seizure disorder who presented to [facility] emergency department via [facility] following cardiac arrest. [facility] was originally called for shortness of breath and when they arrived patient was unresponsive and in PEA. Combitube was placed. CPR was initiated and patient was administered epinephrine 4, 1 amp bicarbonate, Narcan 2 mg prior to arrival via left tibial I/O. Blood glucose was 334. Exact duration of prehospital CPR is unclear. Combitube was removed and she was intubated upon arrival. Patient had ROSC 5 minutes after arrival. She received additional epinephrine 2 in the ED. She also received 1 L normal saline bolus, vancomycin, Zosyn in the ED. Critical care medicine is consulted for admission. EKG has no acute ischemia. SUBJ 05/07: Intubated sedated neuromuscularly paralyzed. Induced hypothermia initiated at 7 AM, 2-D echo shows EF 25-30%, mild to moderate MR. Serial troponins negative 05/08: Remains neuromuscularly paralyzed. Hypothermia will be completed by the known and rewarming was started. Remains off inotropes and pressors 05/09: Hypothermia protocol completed, placed overnight on Versed also in addition to propofol and fentanyl for tachycardia and asynchrony. Currently patient while on sedation do not open eyes with very slight withdrawal to pain 05/10: Developed Afib with RVR yesterday with HR in 200's DC cardioverted at night by Dr. Chu. Placed back on Versed. RN reports paroxysmal A fib. EEG pending at this time for subclinical sz. EEG 05/07 burst suppression pattern. Neuro prognosis poor 05/11: No neuro improvement. Creat worsening, nephrology consulted. EEG severe encephalopathy consistent with anoxic injury. Palliative care is following 05/12: There had been no improvement in neuro status after completion of code cool approximately 4 days ago. Patient has not shown not seen any signs of improvement. Palliative care met with family. Patient is developing multiorgan dysfunction syndrome. Daughter wants withdrawal of life support but wants to wait until some other family members can visit from [place] 05/13: No meaningful recovery yet. Opens eyes partially to pain. Weakly withdraws all extremities to pain. UO 1.8L in 24 hours. Family considering withdrawal of life support today, considering comorbidities and poor neuro recovery after cooling 05/14: Eyes are spontaneously open but with upward gaze. No tracking no response to threat. Withdraws bilateral upper extremity to pain. Had been off sedation more than 4 days 05/15: Neuro exam remains unchanged, even less eye-opening and withdrawal. Fever up to 103.5. Pancultured. Continue on vancomycin and Zosyn until cultures are back. 05/16: no improvements or changes to mental status. persistent encephalopathy. poor prognosis. family wants to wait until other family can be present. palliative care clarifying goals. 05/17: no changes to poor mental status. still awaiting family. hypernatremia worsening. nephrology following. Cr improving though; ahsan post-ATN diuresis. 05/18: Tmax 98.9. Positive gag. Positive corneal reflex. Blinks. Does not withdraw to pain. Went to A. fib with RVR the today requiring synchronous cardioversion with 200 J currently in sinus tachycardia. Given digoxin 0.5 mg IV now. 05/19: Afebrile. Has not brain injury. Daughter yesterday she says she was the patient trach and PEG. Started on desmopressin per nephrology yesterday. Sodium still remains elevated. 05/20: no improvements in severe encephalopathy. Daughter continues to want aggressive treatment. will proceed with trach and PEG, and pursue long-term placement. 05/21: no improvements in neuro exam. s/p trach yesterday. GI consulted for PEG. needs placement. sodium downtrending and improving. Subjective 05/22: no improvements or changes. on SBT this AM on my eval. persistently encephalopathic. needs placement. Sodium derangements slowly improving. Objective Vital Signs Date Time Temp Pulse Resp B/P (MAP) Pulse Ox O2 Delivery O2 Flow Rate FiO2 05/22/17 14:00 86 05/22/17 12:00 99.6 138/64 (88) 05/22/17 08:35 96 35 05/22/17 08:00 17 Intake and Output 05/22/17 05/22/17 05/23/17 08:00 16:00 00:00 Intake Total 2240 ml Output Total 875 ml Balance 1365 ml Result Diagram: 05/20/17 0605 05/22/17 0440 Imaging Last Impressions Chest X-Ray 05/18/17 0000 Signed Impressions: Service Date/Time: Thursday, May 18, 2017 08:14 - CONCLUSION: ET tube tip that the upper thoracic level. Increasing left lower lung consolidation. Obi Barnes MD Abdomen Ultrasound 05/07/17 0000 Signed Impressions: Service Date/Time: Sunday, May 07, 2017 14:19 - CONCLUSION: 1. Echogenic liver compatible with fatty infiltration or hepatocellular disease. 2. Cholecystectomy Laith Coe MD Head CT [id number]/06/[id number] Signed Impressions: Service Date/Time: Sunday, May 07, 2017 03:14 - CONCLUSION: Normal examination. Noé Ybarra MD CT Angiography 05/06/17 0000 Signed Impressions: Service Date/Time: Sunday, May 07, 2017 03:21 - CONCLUSION: 1. No pulmonary embolus. 2. Bibasilar areas of consolidation or atelectasis being worse on the left. There are minimal bilateral pleural effusions. Noé Ybarra MD Objective Remarks GENERAL: 56-year-old female who is trached, unresponsive. SKIN: Warm and dry. Well perfused HEAD: Atraumatic. Normocephalic. EYES: Bilateral exophthalmus. Pupils equal and round, reactive around 4 mm bilaterally. Positive corneal reflex ENT: No nasal bleeding or discharge. fresh tracheostomy in place without evidence of bleeding. NECK: Trachea midline. No JVD appreciated. No meningismus CARDIOVASCULAR: normal rate, regular rhythm. sinus by tele. RESPIRATORY: PSV 5/5. fio2 35%. equal chest rise. GASTROINTESTINAL: Abdomen protuberant soft. No appreciable tenderness , rebound or guarding. : Benoit catheter is in place MUSCULOSKELETAL: Extremities without significant peripheral edema NEUROLOGICAL: Blinks.. Minimal partial eye opening to pain. Slight withdrawal to pain in all 4 ext upper extremities more than lower. Pupils as above. Positive gag. A/P Problem List: (1) Cardiac arrest ICD Code: I46.9 - Cardiac arrest, cause unspecified Status: Resolved (2) Anoxic-ischemic encephalopathy ICD Code: G93.1 - Anoxic brain damage, not elsewhere classified; I67.82 - Cerebral ischemia Status: Chronic (3) Chronic systolic heart failure ICD Code: I50.22 - Chronic systolic (congestive) heart failure Status: Chronic (4) Exophthalmos of both eyes ICD Code: H05.20 - Unspecified exophthalmos Status: Chronic (5) HTN (hypertension) ICD Code: I10 - Essential (primary) hypertension Status: Chronic (6) HLD (hyperlipidemia) ICD Code: E78.5 - Hyperlipidemia, unspecified Status: Chronic (7) Cardiogenic shock ICD Code: R57.0 - Cardiogenic shock Status: Resolved (8) Acute respiratory failure with hypercapnia ICD Code: J96.02 - Acute respiratory failure with hypercapnia Status: Chronic (9) Obesity (BMI 30-39.9) ICD Code: E66.9 - Obesity, unspecified Status: Chronic (10) CHF (congestive heart failure) ICD Code: I50.9 - CHF (congestive heart failure) Status: Resolved (11) Bipolar disorder ICD Code: F31.9 - Bipolar affective disorder Status: Chronic (12) COPD (chronic obstructive pulmonary disease) ICD Code: J44.9 - Chronic obstructive pulmonary disease Status: Chronic (13) Tobacco abuse ICD Code: Z72.0 - Tobacco use Status: Chronic Assessment and Plan Assessment: 56yF with severe hypoxic-ischemic encephalopathy. poor prognosis. family wants aggressive care. s/p trach and will need PEG. ongoing renal and electrolyte derangements persist but now improving. NEURO/PSYCH: Acute anoxic encephalopathy, severe Bipolar disorder Exophthalmus Status post completion of induced therapeutic hypothermia. initiated at 0700 , completed 05/08/17. Off sedation more than 7 days No neurologic improvement yet, prognosis poor. Neurology Dr. Solitario. CT brain - negative. Depakote level. 48. Was on Depakote for bipolar. restarted Depakote at 250 twice a day 500 daily at home Lactulose 30 daily. Ammonia level down to 31. Neg urine drug screen, APAP, ASA level. Resumed gabapentin 100 milligrams at night. Holding bupropion 150 mg daily EEG shows severe encephalopathy, burst suppression pattern. Repeat EEG severe encephalopathy RESP: Acute hypercapnic respiratory failure COPD Tobacco abuse Ventilator bundle. Albuterol/ipratropium aerosols q6 hours. Albuterol q2 hours prn. No Wheezing s/p perc trach 05/[address] Melvin and Mathieu. begin weaning from mechanical ventilation with SBTs and to trach collar as tolerated. may be slow wean. CV: s/p PEA cardiac arrest Post cardiac arrest syndrome with shock (resolved) Afib with RVR - resolved. Chronic systolic heart failure with ejection fraction 15-20% (25-30 on echo) Nonobstructive Coronary artery disease Essential Hypertension, uncontrolled Hyperlipidemia Holding valsartan 160 mg due to acute kidney injury. Carvedilol 12.5 mg twice a day increased to 25 mg twice a day and amlodipine 10 mg daily. use IV Hydralazine and labetalol PRN for SBP >170. DCCV for Afib RVR with HR 200/min. 2. Second time 05/18 Continue Cardizem for paroxysmal A fib and digoxin 0.125 mg daily EKG normal sinus rhythm rate of 99. No apparent acute ischemia. Follow-up serial EKGs and cardiac markers-negative. 2-D echo EF 25-30%. Cardiology Dr. Early Etiology of cardiac arrest unclear. Most likely due to hypercapnia and respiratory acidosis Continue aspirin 81 mg daily. Holding statin simvastatin 40 mg daily due to elevated LFTs. PO cardizem. GI: GERD Transaminitis, probable ischemic hepatopathy. Orogastric tube. RUQ us-fatty liver, hepatitis panel negative Tube feeds with Glucerna currently at 45 cc an hour Famotidine for GI prophylaxis Docusate sodium/senna twice a day for bowel regimen consult GI for PEG placement. FEN/RENAL: MARQUEZ Lactic acidemia Hypernatremia - slowly improving but persistent. Benoit in place. Monitor intake and output. Monitor electrolytes and replace as indicated. Hold home NSAID's. Creat improved today Nephrology consult for worsening creatinine. Dr. Hughes following. Nonoliguric renal failure Currently on D5 water with 20 KCl at 70 cc an hour. Free water 300 cc every 4 hours. Recheck sodium in AM. ID: High fever, sepsis Candiduria Bacteremia with strep viridans, Coag neg staph, pleomorphic GPR s/p full course of Vanc/Zosyn for strep bacteremia (2 weeks of vancomycin for GPC bacteremia). d/c and monitor clinically. Blood cultures 05/06 with strep radius, coag negative staph and pleomorphic gram -positive rods. Urine culture 05/03 with Lucinda albicans HEME: No acute hematologic issues. ENDO: Diabetes mellitus with acute hyperglycemia Hold metformin 1000 mg twice a day, glipizide 5 mg twice a day, insulin glargine 24 units daily. SSI Novulog every 4 hours/low Thyroid studies-essentially euthyroid PROPH: Sq heparin for DVT prophylaxis. Famotidine for stress ulcer prophylaxis and history of GERD ACCESS: Peripheral IV. Central line if indicated. ALT CODE. Palliative care following. Prognosis appears very poor. Level II follow-up Problem Qualifiers (1) HTN (hypertension): Qualified Codes: I10 - Essential (primary) hypertension Luis Manuel Melvin MD May 22, 2017 14:31
[2017-05-22] MEDS: RESP: ALBUTEROL 2.5 MG/3 ML NEB (PRN) INH (19:53)
[2017-05-22] MEDS: GABAPENTIN 250 MG/5 ML UDC NG SCH (21:02)
[2017-05-23] VITALS (21 sets, daily range): BP systolic 109–149; BP diastolic 64–90; PULSE 68–114; RESP 12–18; TEMP 97.8–100; O2SAT 97–100
[2017-05-23] MEDS: INSULIN ASPART SUPPLEMENTAL SCALE SQ SCH ×7 (00:54→23:51)
[2017-05-23] MEDS: DILTIAZEM HCL 30 MG TAB PO SCH ×6 (00:54→23:54)
[2017-05-23] MEDS: D5W + KCL 20 MEQ INJ 1,000 ML IV SCH ×2 (00:55→16:21)
[2017-05-23] MEDS: oxyCODONE HCL ORAL CONC 5 MG/0.25 ML SYRINGE PO SCH ×6 (02:12→23:50)
[2017-05-23] MEDS: FREE WATER G-TUBE SCH ×7 (03:54→23:50)
[2017-05-23] MEDS: CHLORHEXIDINE GLUCONATE 2 % 1 PACK (2 CLOTHS) TOP SCH (04:00)
[2017-05-23] MEDS: DESMOPRESSIN ACETATE 4 MCG/ML VIAL SQ SCH ×2 (08:57→20:25)
[2017-05-23] MEDS: DIGOXIN 0.125 MG TAB PO SCH (08:58)
[2017-05-23] MEDS: VALPROIC ACID SYRUP 250 MG/5 ML UDC NG SCH ×2 (08:58→20:24)
[2017-05-23] MEDS: CARVEDILOL 12.5 MG TAB PO SCH ×2 (08:58→20:24)
[2017-05-23] MEDS: RAMIPRIL 2.5 MG CAP PO SCH (09:00)
[2017-05-23] MEDS: DOCUSATE SODIUM 50 MG/SENNA 8.6 MG TAB PO SCH ×2 (09:00→20:24)
[2017-05-23] MEDS: LACTULOSE SYRUP 20 GM/30 ML CUP OG-TUBE SCH (09:00)
[2017-05-23] MEDS: ASPIRIN EC 81 MG TABEC PO SCH (09:00)
[2017-05-23] MEDS: FAMOTIDINE 20 MG TAB NG SCH ×2 (09:00→18:34)
[2017-05-23] MEDS: levETIRAcetam 500 MG/5 ML UDC NG SCH ×2 (09:02→20:24)
[2017-05-23] MEDS: SODIUM CHLORIDE 0.9% FLUSH 10 ML FLUSH IV FLUSH SCH ×2 (09:03→20:33)
[2017-05-23] MEDS: CHLORHEXIDINE 0.12% (ORAL KIT) 15 ML CUP MT SCH ×2 (09:04→20:00)
[2017-05-23 11:06] LABS: POTASSIUM 3.5 MEQ/L (3.5-5.1)
[2017-05-23] MEDS ORDERED: SODIUM CHLORIDE 0.9% 20 ML VIAL IV ONE (12:00)
[2017-05-23] MEDS ORDERED: PROPOFOL 200 MG/20 ML AMP IV ONE (12:00)
[2017-05-23] MEDS ORDERED: PHENYLEPH/NS 1000 MCG/10 ML SYR IV ONE (12:00)
[2017-05-23] MEDS ORDERED: ceFAZolin INJ 1,000 MG VIAL IV ONE (12:00)
--- NOTE | 2017-05-23 12:57 | HHI.NPPN ---
Subjective History of Present Illness 56 year old female with cardiomyopathy COPD CAD Anoxic bran injury and develop ARF. Additional Remarks Patient remain comatose off sherry on T tube O2 Objective Data Data 05/23/17 05/24/17 19:00 07:00 Output Total 450 ml Balance -450 ml Output Urine Total 450 ml Vital Signs Date Time Temp Pulse Resp B/P (MAP) Pulse Ox O2 Delivery O2 Flow Rate FiO2 05/23/17 12:44 98 35 05/23/17 12:00 98.5 81 16 136/64 (88) 97 05/23/17 12:00 35 05/23/17 10:00 81 05/23/17 08:51 100 35 05/23/17 08:20 100 35 05/23/17 08:00 99.9 89 15 149/69 (95) 100 05/23/17 08:00 35 05/23/17 07:35 85 05/23/17 06:00 83 05/23/17 04:10 99 35 05/23/17 04:00 100.0 85 12 143/65 (91) 99 05/23/17 04:00 85 05/23/17 04:00 35 05/23/17 03:12 14 05/23/17 02:00 86 05/23/17 01:50 98 35 05/23/17 00:00 99.0 87 17 148/66 (93) 97 05/23/17 00:00 87 05/23/17 00:00 35 05/22/17 22:50 95 35 05/22/17 22:00 90 05/22/17 20:00 98.9 88 21 142/65 (90) 95 05/22/17 20:00 88 05/22/17 20:00 35 05/22/17 19:50 95 35 05/22/17 18:00 92 05/22/17 18:00 87 05/22/17 16:00 99.7 87 20 150/67 (94) 94 05/22/17 16:00 87 05/22/17 14:00 86 -: 05/20/17 0605 05/23/17 1003 Physical Exam Neck Neck Exam: Neck Supple Pulmonary Resp Exam: Breath Sounds Equal, Rhonchi, Decreased Bases, Poor Inspiratory Effort Cardiology CV Exam: Regular Gastrointestinal/Abdomen GI Exam: Soft, Bowel Sounds Present, Distended Extremeties Extremities Exam: Moderate Edema Neurologic Neuro Exam: Unresponsive Assessment/Plan Problem List: (1) Acute renal failure ICD Codes: N17.9 - Acute kidney failure, unspecified Plan: Patient with acute renal failure cardiomyopathy CHF coronary syndrome ATN ARF/CKD stable but she has anoxic brain injury and will be on Ventilator support Her prognosis is poor due to anoxic brain injury BMP Na 145 /Cr 1.1 given DDAVP 2mcg q 12 water flushes Follow the urine out put and BMP. (2) Cardiopulmonary arrest ICD Codes: I46.9 - Cardiac arrest, cause unspecified Status: Acute Plan: Critical care following (3) Cardiogenic shock ICD Codes: R57.0 - Cardiogenic shock Status: Resolved Plan: Cardiomyopathy (4) Anoxic encephalopathy ICD Codes: G93.1 - Anoxic brain damage, not elsewhere classified Status: Acute Plan: Brain injury with no recovery (5) Cardiomyopathy ICD Codes: I42.9 - Cardiomyopathy Status: Acute Plan: EF of 20% Problem Qualifiers (1) Acute renal failure: Qualified Codes: N17.0 - Acute kidney failure with tubular necrosis Apollo Hughes MD May 23, 2017 12:57
--- NOTE | 2017-05-23 13:18 | PD.CARD.PN ---
Subjective Subjective Remarks s/p tracheotomy, unresponsive off sedation Objective Medications Current Medications Medications (Trade) Dose Ordered Sig/Scarlett Route Start Time Stop Time Status Last Admin (Tylenol) 650 mg Q6H PRN PO 05/06/17 23:30 05/17/17 19:45 (Zofran Inj) 4 mg Q6H PRN IV PUSH 05/06/17 23:30 (Albuterol Neb) 2.5 mg Q2HR NEB PRN INH 05/06/17 23:30 05/22/17 19:53 Miscellaneous Information 1 Q361D XX 05/06/17 23:30 (Chlorhexidine 2% Cloth) Taper DAILY@04 TOP 05/07/17 04:00 05/03/18 03:59 05/21/17 02:57 (Chlorhexidine 2% Cloth) 3 pack UNSCH PRN TOP 05/06/17 23:30 (Aggie-Colace) 1 tab BID PO 05/07/17 09:00 05/21/17 20:00 (Milk Of Magnesia Liq) 30 ml Q12H PRN PO 05/06/17 23:30 (Senokot) 17.2 mg Q12H PRN PO 05/06/17 23:30 (Dulcolax Supp) 10 mg DAILY PRN RECTAL 05/06/17 23:30 (Peridex 0.12% Liq) 15 ml BID@08,20 MT 05/07/17 08:00 05/23/17 09:04 (NS Flush) 2 ml BID IV FLUSH 05/07/17 09:00 05/23/17 09:03 (NS Flush) 2 ml UNSCH PRN IV FLUSH 05/07/17 04:30 (Heparin Inj) 5,000 units Q12H SQ 05/07/17 05:00 Future Hold 05/22/17 04:27 (Lacrilube Opht Oint) 1 applic Q12HR EACH EYE 05/07/17 09:00 05/22/17 21:00 (Ecotrin Ec) 81 mg DAILY PO 05/08/17 09:00 05/21/17 09:26 (Lactulose Liq) 30 ml DAILY OG-TUBE 05/07/17 09:00 05/21/17 09:26 (D50w (Vial) Inj) 50 ml UNSCH PRN IV PUSH 05/08/17 00:30 (Glucagon Inj) 1 mg UNSCH PRN OTHER 05/08/17 00:30 (NovoLOG SUPPLEMENTAL SCALE) 1 Q4H SQ 05/08/17 00:30 05/23/17 12:16 (Apresoline Inj) 20 mg Q4H PRN IV PUSH 05/13/17 11:15 05/21/17 02:57 (Norvasc) 10 mg DAILY PO 05/14/17 09:15 05/23/17 08:58 (Depakene Liq) 250 mg BID NG 05/16/17 11:00 05/23/17 08:58 Potassium Chloride/Dextrose 1,000 ml @ 70 mls/hr [id number] IV 05/17/17 23:45 05/23/17 00:55 (Free Water) 300 ml Q4HR G-TUBE 05/18/17 12:00 05/23/17 00:00 (Pepcid) 20 mg DAILY NG 05/18/17 09:00 05/22/17 10:19 (Keppra Liq) 1,000 mg Q12HR NG 05/18/17 09:00 05/23/17 09:02 (Neurontin Liq) 100 mg HS NG 05/18/17 21:00 05/22/17 21:02 (Lanoxin) 0.125 mg DAILY PO 05/20/17 09:00 05/23/17 08:58 (Coreg) 25 mg BID PO 05/19/17 21:00 05/23/17 08:58 (Trandate Inj) 10 mg Q1H PRN IV 05/19/17 13:15 (Haldol Inj) 5 mg Q4H PRN IV 05/20/17 18:45 (Roxicodone Intensol Liq) 5 mg Q4H PO 05/20/17 19:00 05/23/17 12:16 (Cardizem) 30 mg Q6HR PO 05/20/17 18:45 05/23/17 12:15 (Ddavp Inj) 2 mcg Q12HR SQ 05/21/17 21:00 05/23/17 08:57 (Altace) 2.5 mg DAILY PO 05/23/17 09:00 Vital Signs / I&O Vital Signs Date Time Temp Pulse Resp B/P (MAP) Pulse Ox O2 Delivery O2 Flow Rate FiO2 05/23/17 12:44 98 35 05/23/17 12:00 98.5 81 16 136/64 (88) 97 05/23/17 12:00 35 05/23/17 10:00 81 05/23/17 08:51 100 35 05/23/17 08:20 100 35 05/23/17 08:00 99.9 89 15 149/69 (95) 100 05/23/17 08:00 35 05/23/17 07:35 85 05/23/17 06:00 83 05/23/17 04:10 99 35 05/23/17 04:00 100.0 85 12 143/65 (91) 99 05/23/17 04:00 85 05/23/17 04:00 35 05/23/17 03:12 14 05/23/17 02:00 86 05/23/17 01:50 98 35 05/23/17 00:00 99.0 87 17 148/66 (93) 97 05/23/17 00:00 87 05/23/17 00:00 35 05/22/17 22:50 95 35 05/22/17 22:00 90 05/22/17 20:00 98.9 88 21 142/65 (90) 95 05/22/17 20:00 88 05/22/17 20:00 35 05/22/17 19:50 95 35 05/22/17 18:00 92 05/22/17 18:00 87 05/22/17 16:00 99.7 87 20 150/67 (94) 94 05/22/17 16:00 87 05/22/17 14:00 86 I/O 05/22/17 05/22/17 05/22/17 05/23/17 05/23/17 05/23/17 07:00 15:00 23:00 07:00 15:00 23:00 Intake Total 2240 ml 2172 ml 1066 ml Output Total 875 ml 2000 ml 1850 ml 450 ml Balance 1365 ml 172 ml -784 ml -450 ml Intake IV Total 1000 ml 736 ml 578 ml Tube Feeding 240 ml 536 ml 228 ml Tube Irrigant 100 ml Other 900 ml 900 ml 260 ml Output Urine Total 875 ml 2000 ml 1700 ml 450 ml Stool Total 150 ml # Bowel Movements 1 2 Physical Exam GENERAL: SKIN: Warm and dry. HEAD: Normocephalic. EYES: No scleral icterus. No injection or drainage. NECK: Supple, trachea midline. No JVD or lymphadenopathy. CARDIOVASCULAR: Regular rate and rhythm without murmurs, gallops, or rubs. RESPIRATORY: Breath sounds equal bilaterally. No accessory muscle use. GASTROINTESTINAL: Abdomen soft, non-tender, nondistended. MUSCULOSKELETAL: No cyanosis, or edema. BACK: Nontender without obvious deformity. No CVA tenderness. Laboratory Laboratory Tests Test 05/23/17 10:03 Blood Urea Nitrogen 14 MG/DL Creatinine 1.17 MG/DL Random Glucose 266 MG/DL Calcium Level 9.2 MG/DL Sodium Level 145 MEQ/L Potassium Level 3.5 MEQ/L Chloride Level 112 MEQ/L Carbon Dioxide Level 26.0 MEQ/L Anion Gap 7 MEQ/L Estimat Glomerular Filtration Rate 58 ML/MIN B-Type Natriuretic Peptide 236 PG/ML Imaging GENERAL: SKIN: Warm and dry. HEAD: Normocephalic. EYES: No scleral icterus. No injection or drainage. NECK: Supple, trachea midline. No JVD or lymphadenopathy. CARDIOVASCULAR: Regular rate and rhythm without murmurs, gallops, or rubs. RESPIRATORY: Breath sounds equal bilaterally. No accessory muscle use. GASTROINTESTINAL: Abdomen soft, non-tender, nondistended. MUSCULOSKELETAL: No cyanosis, or edema. BACK: Nontender without obvious deformity. No CVA tenderness. Assessment and Plan Problem List: (1) CAD (coronary artery disease) ICD Codes: I25.10 - Atherosclerotic heart disease of three affiliated coronary artery without angina pectoris (2) CHRONIC OBSTRUCTIVE PULMON DISEASE W ACUTE LOWER RESP INFCT ICD Codes: J44.0 - CHRONIC OBSTRUCTIVE PULMON DISEASE W ACUTE LOWER RESP INFCT Status: Acute (3) Cardiomyopathy ICD Codes: I42.9 - Cardiomyopathy Status: Acute (4) Cardiopulmonary arrest ICD Codes: I46.9 - Cardiac arrest, cause unspecified Status: Acute (5) Diabetes mellitus ICD Codes: E11.9 - Type 2 diabetes mellitus without complications Status: Acute Assessment and Plan 1.) Cardiomyopathy - euvolemic, continue coreg 25 mg bid, start altace 2.5 mg qd , yac=047 05/23/17 2.) CAD - continue aspirin, statin held due to shock liver and elevated lfts 3.) s/p trach, awaiting assisted care 4.) PAF - continue jaelyn powers, oksana, defer ac determination to neuro Aguila Early MD May 23, 2017 13:18
[2017-05-23] MEDS: ARTIFICIAL TEARS OPTH OINT 3.5 APPLIC/3.5 GM TUBO EACH EYE SCH ×2 (16:24→20:39)
--- NOTE | 2017-05-23 17:35 | GIPROC ---
[facility] [address] [facility]. [facility], [id number] EGD PROCEDURE REPORT EXAM DATE: 05/23/2017 PATIENT NAME: Meli Garcia MR #: [id number] BIRTHDATE: 1960 ATTENDING: Cher Robles MD ORDER #: [id number] CLINICAL ABSTRACTOR: Brennon Ferguson and Rosa Hackett STATUS: inpatient INDICATIONS: The patient is a 56 yr old female here for an EGD due to dysphagia, feeding difficulties , attempted peg placement PROCEDURE PERFORMED: EGD, diagnostic MEDICATIONS: None and Per Anesthesia. TOPICAL ANESTHETIC: none CONSENT: The patient understands the risks and benefits of the procedure and understands that these risks include, but are not limited to: sedation, allergic reaction, infection, perforation and/or bleeding. Alternative means of evaluation and treatment include, among others: physical exam, x-rays, and/or surgical intervention. The patient elects to proceed with this endoscopic procedure. medical equipment was checked for proper function. Hand hygiene and appropriate measures for infection prevention was taken. After the risks, benefits and alternatives of the procedure were thoroughly explained, Informed consent was verified, confirmed and timeout was successfully executed by the treatment team. The patient was anesthetized with topical anesthesia and the Pentax [id number] endoscope was introduced through the mouth and advanced to the second portion of the duodenum. Retroflexed views revealed a hiatal hernia The gastroscope was then slowly withdrawn and removed. Normal egd, transillumination not seen due to morbid obesity. ADVERSE EVENTS: There were no complications. IMPRESSIONS: 1. Normal egd, transillumination not seen due to morbid obesity 2. Retroflexed views revealed a hiatal hernia RECOMMENDATIONS: IR consult for gt placement PATIENT CONDITION: stable DISPOSITION: Inpatient REPEAT EXAM: NONE Cher Robles MD eSigned: Cher Robles MD 05/23/2017 5:35 PM cc:
--- NOTE | 2017-05-23 19:29 | HHI.CCPN ---
Subjective Remarks/Hospital Course 56-year-old female with past medical history of hypertension, chronic systolic heart failure, diabetes, COPD bipolar disorder, seizure disorder who presented to [facility] emergency department via [facility] following cardiac arrest. [facility] was originally called for shortness of breath and when they arrived patient was unresponsive and in PEA. Combitube was placed. CPR was initiated and patient was administered epinephrine 4, 1 amp bicarbonate, Narcan 2 mg prior to arrival via left tibial I/O. Blood glucose was 334. Exact duration of prehospital CPR is unclear. Combitube was removed and she was intubated upon arrival. Patient had ROSC 5 minutes after arrival. She received additional epinephrine 2 in the ED. She also received 1 L normal saline bolus, vancomycin, Zosyn in the ED. Critical care medicine is consulted for admission. EKG has no acute ischemia. SUBJ 05/07: Intubated sedated neuromuscularly paralyzed. Induced hypothermia initiated at 7 AM, 2-D echo shows EF 25-30%, mild to moderate MR. Serial troponins negative 05/08: Remains neuromuscularly paralyzed. Hypothermia will be completed by the known and rewarming was started. Remains off inotropes and pressors 05/09: Hypothermia protocol completed, placed overnight on Versed also in addition to propofol and fentanyl for tachycardia and asynchrony. Currently patient while on sedation do not open eyes with very slight withdrawal to pain 05/10: Developed Afib with RVR yesterday with HR in 200's DC cardioverted at night by Dr. Chu. Placed back on Versed. RN reports paroxysmal A fib. EEG pending at this time for subclinical sz. EEG 05/07 burst suppression pattern. Neuro prognosis poor 05/11: No neuro improvement. Creat worsening, nephrology consulted. EEG severe encephalopathy consistent with anoxic injury. Palliative care is following 05/12: There had been no improvement in neuro status after completion of code cool approximately 4 days ago. Patient has not shown not seen any signs of improvement. Palliative care met with family. Patient is developing multiorgan dysfunction syndrome. Daughter wants withdrawal of life support but wants to wait until some other family members can visit from [place] 05/13: No meaningful recovery yet. Opens eyes partially to pain. Weakly withdraws all extremities to pain. UO 1.8L in 24 hours. Family considering withdrawal of life support today, considering comorbidities and poor neuro recovery after cooling 05/14: Eyes are spontaneously open but with upward gaze. No tracking no response to threat. Withdraws bilateral upper extremity to pain. Had been off sedation more than 4 days 05/15: Neuro exam remains unchanged, even less eye-opening and withdrawal. Fever up to 103.5. Pancultured. Continue on vancomycin and Zosyn until cultures are back. 05/16: no improvements or changes to mental status. persistent encephalopathy. poor prognosis. family wants to wait until other family can be present. palliative care clarifying goals. 05/17: no changes to poor mental status. still awaiting family. hypernatremia worsening. nephrology following. Cr improving though; ahsan post-ATN diuresis. 05/18: Tmax 98.9. Positive gag. Positive corneal reflex. Blinks. Does not withdraw to pain. Went to A. fib with RVR the today requiring synchronous cardioversion with 200 J currently in sinus tachycardia. Given digoxin 0.5 mg IV now. 05/19: Afebrile. Has not brain injury. Daughter yesterday she says she was the patient trach and PEG. Started on desmopressin per nephrology yesterday. Sodium still remains elevated. 05/20: no improvements in severe encephalopathy. Daughter continues to want aggressive treatment. will proceed with trach and PEG, and pursue long-term placement. 05/21: no improvements in neuro exam. s/p trach yesterday. GI consulted for PEG. needs placement. sodium downtrending and improving. 05/22: no improvements or changes. on SBT this AM on my eval. persistently encephalopathic. needs placement. Sodium derangements slowly improving. Subjective 05/23: PEG planned for today. weaning vent slowly. metabolic derangements improving. Cr downtrending. awaiting placement. Objective Vital Signs Date Time Temp Pulse Resp B/P (MAP) Pulse Ox O2 Delivery O2 Flow Rate FiO2 05/23/17 18:34 16 05/23/17 17:00 98 35 05/23/17 16:00 97.9 81 147/90 (109) Intake and Output 05/23/17 05/23/17 05/24/17 08:00 16:00 00:00 Intake Total 1066 ml 753 ml Output Total 2300 ml 750 ml Balance -1234 ml 3 ml Result Diagram: 05/20/1760405/23/17 1003 Imaging Last Impressions Chest X-Ray 05/18/17 0000 Signed Impressions: Service Date/Time: Thursday, May 18, 2017 08:14 - CONCLUSION: ET tube tip that the upper thoracic level. Increasing left lower lung consolidation. Obi Barnes MD Abdomen Ultrasound 05/07/17 0000 Signed Impressions: Service Date/Time: Sunday, May 07, 2017 14:19 - CONCLUSION: 1. Echogenic liver compatible with fatty infiltration or hepatocellular disease. 2. Cholecystectomy Laith Coe MD Head CT 05/06/172123 Signed Impressions: Service Date/Time: Sunday, May 07, 2017 03:14 - CONCLUSION: Normal examination. Noé Ybarra MD CT Angiography 05/06/17 0000 Signed Impressions: Service Date/Time: Sunday, May 07, 2017 03:21 - CONCLUSION: 1. No pulmonary embolus. 2. Bibasilar areas of consolidation or atelectasis being worse on the left. There are minimal bilateral pleural effusions. Noé Ybarra MD Objective Remarks GENERAL: 56-year-old female who is trached, unresponsive. SKIN: Warm and dry. Well perfused HEAD: Atraumatic. Normocephalic. EYES: Bilateral exophthalmus. Pupils equal and round, reactive around 4 mm bilaterally. Positive corneal reflex ENT: No nasal bleeding or discharge. fresh tracheostomy in place without evidence of bleeding. NECK: Trachea midline. No JVD appreciated. No meningismus CARDIOVASCULAR: normal rate, regular rhythm. sinus by tele. RESPIRATORY: PSV 5/5. fio2 35%. equal chest rise. GASTROINTESTINAL: Abdomen protuberant soft. No appreciable tenderness , rebound or guarding. : Benoit catheter is in place MUSCULOSKELETAL: Extremities without significant peripheral edema NEUROLOGICAL: Blinks.. Minimal partial eye opening to pain. Slight withdrawal to pain in all 4 ext upper extremities more than lower. Pupils as above. Positive gag. A/P Problem List: (1) Cardiac arrest ICD Code: I46.9 - Cardiac arrest, cause unspecified Status: Resolved (2) Anoxic-ischemic encephalopathy ICD Code: G93.1 - Anoxic brain damage, not elsewhere classified; I67.82 - Cerebral ischemia Status: Chronic (3) Chronic systolic heart failure ICD Code: I50.22 - Chronic systolic (congestive) heart failure Status: Chronic (4) Exophthalmos of both eyes ICD Code: H05.20 - Unspecified exophthalmos Status: Chronic (5) HTN (hypertension) ICD Code: I10 - Essential (primary) hypertension Status: Chronic (6) HLD (hyperlipidemia) ICD Code: E78.5 - Hyperlipidemia, unspecified Status: Chronic (7) Cardiogenic shock ICD Code: R57.0 - Cardiogenic shock Status: Resolved (8) Acute respiratory failure with hypercapnia ICD Code: J96.02 - Acute respiratory failure with hypercapnia Status: Chronic (9) Obesity (BMI 30-39.9) ICD Code: E66.9 - Obesity, unspecified Status: Chronic (10) CHF (congestive heart failure) ICD Code: I50.9 - CHF (congestive heart failure) Status: Resolved (11) Bipolar disorder ICD Code: F31.9 - Bipolar affective disorder Status: Chronic (12) COPD (chronic obstructive pulmonary disease) ICD Code: J44.9 - Chronic obstructive pulmonary disease Status: Chronic (13) Tobacco abuse ICD Code: Z72.0 - Tobacco use Status: Chronic Assessment and Plan Assessment: 56yF with severe hypoxic-ischemic encephalopathy. poor prognosis. family wants aggressive care. s/p trach. PEG placement today per GI. ongoing renal and electrolyte derangements persist but continue to improve. NEURO/PSYCH: Acute anoxic encephalopathy, severe Bipolar disorder Exophthalmus Status post completion of induced therapeutic hypothermia. initiated at 0700 , completed 05/08/17. Off sedation more than 7 days No neurologic improvement yet, prognosis poor. Neurology Dr. Solitario. CT brain - negative. Depakote level. 48. Was on Depakote for bipolar. restarted Depakote at 250 twice a day 500 daily at home Lactulose 30 daily. Ammonia level down to 31. Neg urine drug screen, APAP, ASA level. Resumed gabapentin 100 milligrams at night. Holding bupropion 150 mg daily EEG shows severe encephalopathy, burst suppression pattern. Repeat EEG severe encephalopathy RESP: Acute hypercapnic respiratory failure COPD Tobacco abuse Ventilator bundle. Albuterol/ipratropium aerosols q6 hours. Albuterol q2 hours prn. No Wheezing s/p perc trach 05/[address] Melvin and Mathieu. begin weaning from mechanical ventilation with SBTs and to trach collar as tolerated. may be slow wean. CV: s/p PEA cardiac arrest Post cardiac arrest syndrome with shock (resolved) Afib with RVR - resolved. Chronic systolic heart failure with ejection fraction 15-20% (25-30 on echo) Nonobstructive Coronary artery disease Essential Hypertension, uncontrolled Hyperlipidemia Holding valsartan 160 mg due to acute kidney injury. Carvedilol 12.5 mg twice a day increased to 25 mg twice a day and amlodipine 10 mg daily. use IV Hydralazine and labetalol PRN for SBP >170. DCCV for Afib RVR with HR 200/min. 2. Second time 05/18 Continue Cardizem for paroxysmal A fib and digoxin 0.125 mg daily EKG normal sinus rhythm rate of 99. No apparent acute ischemia. Follow-up serial EKGs and cardiac markers-negative. 2-D echo EF 25-30%. Cardiology Dr. Early Etiology of cardiac arrest unclear. Most likely due to hypercapnia and respiratory acidosis Continue aspirin 81 mg daily. Holding statin simvastatin 40 mg daily due to elevated LFTs. PO cardizem. GI: GERD Transaminitis, probable ischemic hepatopathy. Orogastric tube. RUQ us-fatty liver, hepatitis panel negative Tube feeds with Glucerna currently at 45 cc an hour Famotidine for GI prophylaxis Docusate sodium/senna twice a day for bowel regimen consult GI for PEG placement: planned for today. FEN/RENAL: MARQUEZ Lactic acidemia Hypernatremia - slowly improving but persistent. Benoit in place. Monitor intake and output. Monitor electrolytes and replace as indicated. Hold home NSAID's. Creat improved today Nephrology consult for worsening creatinine. Dr. Hughes following. Nonoliguric renal failure Currently on D5 water with 20 KCl at 70 cc an hour. Free water 300 cc every 4 hours. Recheck sodium in AM. ID: High fever, sepsis Candiduria Bacteremia with strep viridans, Coag neg staph, pleomorphic GPR s/p full course of Vanc/Zosyn for strep bacteremia (2 weeks of vancomycin for GPC bacteremia). d/c and monitor clinically. Blood cultures 05/06 with strep radius, coag negative staph and pleomorphic gram -positive rods. Urine culture 05/03 with Lucinda albicans HEME: No acute hematologic issues. ENDO: Diabetes mellitus with acute hyperglycemia Hold metformin 1000 mg twice a day, glipizide 5 mg twice a day, insulin glargine 24 units daily. SSI Novulog every 4 hours/low Thyroid studies-essentially euthyroid PROPH: Sq heparin for DVT prophylaxis. Famotidine for stress ulcer prophylaxis and history of GERD ACCESS: Peripheral IV. Central line if indicated. ALT CODE. Palliative care following. Prognosis appears very poor. Problem Qualifiers (1) HTN (hypertension): Qualified Codes: I10 - Essential (primary) hypertension Luis Manuel Melvin MD May 23, 2017 19:29
[2017-05-23] MEDS: GABAPENTIN 250 MG/5 ML UDC NG SCH (20:24)
[2017-05-24] VITALS (19 sets, daily range): BP systolic 127–152; BP diastolic 61–70; PULSE 73–86; RESP 16–20; TEMP 98.2–100.1; O2SAT 92–100
[2017-05-24] MEDS: FREE WATER G-TUBE SCH ×6 (04:00→23:51)
[2017-05-24] MEDS: CHLORHEXIDINE GLUCONATE 2 % 1 PACK (2 CLOTHS) TOP SCH (04:00)
[2017-05-24] MEDS: INSULIN ASPART SUPPLEMENTAL SCALE SQ SCH ×6 (04:03→23:55)
[2017-05-24] MEDS: oxyCODONE HCL ORAL CONC 5 MG/0.25 ML SYRINGE PO SCH ×6 (04:03→23:51)
[2017-05-24] MEDS: DILTIAZEM HCL 30 MG TAB PO SCH ×4 (05:59→23:51)
[2017-05-24] MEDS: D5W + KCL 20 MEQ INJ 1,000 ML IV SCH ×2 (06:02→20:57)
[2017-05-24 06:57] LABS: HEMATOCRIT 28.2 % (35.0-46.0); MEAN CELL VOLUME 92.8 FL (80.0-100.0); MEAN CORPUSCULAR HEMOGLOBIN 30.3 PG (27.0-34.0); MEAN CORPUSCULAR HGB CONC 32.6 % (32.0-36.0); PLATELET COUNT 259 TH/MM3 (150-450); RED BLOOD COUNT 3.04 MIL/MM3 (4.00-5.30); RED CELL DISTRIBUTION WIDTH 14.5 % (11.6-17.2); REVIEW FLAG FINAL; WHITE BLOOD COUNT 8.5 TH/MM3 (4.0-11.0)
[2017-05-24 07:17] LABS: BICARBONATE 26.8 MEQ/L (21.0-32.0); POTASSIUM 3.9 MEQ/L (3.5-5.1)
--- NOTE | 2017-05-24 07:36 | PD.CARD.PN ---
Subjective Subjective Remarks s/p tracheotomy, unresponsive off sedation Objective Medications Current Medications Medications (Trade) Dose Ordered Sig/Scarlett Route Start Time Stop Time Status Last Admin (Tylenol) 650 mg Q6H PRN PO 05/06/17 23:30 05/17/17 19:45 (Zofran Inj) 4 mg Q6H PRN IV PUSH 05/06/17 23:30 (Albuterol Neb) 2.5 mg Q2HR NEB PRN INH 05/06/17 23:30 05/22/17 19:53 Miscellaneous Information 1 Q361D XX 05/06/17 23:30 (Chlorhexidine 2% Cloth) Taper DAILY@04 TOP 05/07/17 04:00 05/03/18 03:59 05/24/17 04:00 (Chlorhexidine 2% Cloth) 3 pack UNSCH PRN TOP 05/06/17 23:30 (Aggie-Colace) 1 tab BID PO 05/07/17 09:00 05/23/17 20:24 (Milk Of Magnesia Liq) 30 ml Q12H PRN PO 05/06/17 23:30 (Senokot) 17.2 mg Q12H PRN PO 05/06/17 23:30 (Dulcolax Supp) 10 mg DAILY PRN RECTAL 05/06/17 23:30 (Peridex 0.12% Liq) 15 ml BID@08,20 [place] 05/07/17 08:00 05/23/17 20:00 (NS Flush) 2 ml BID IV FLUSH 05/07/17 09:00 05/23/17 20:33 (NS Flush) 2 ml UNSCH PRN IV FLUSH 05/07/17 04:30 (Heparin Inj) 5,000 units Q12H SQ 05/07/17 05:00 Future Hold 05/22/17 04:27 (Lacrilube Opht Oint) 1 applic Q12HR EACH EYE 05/07/17 09:00 05/23/17 20:39 (Ecotrin Ec) 81 mg DAILY PO 05/08/17 09:00 05/21/17 09:26 (Lactulose Liq) 30 ml DAILY OG-TUBE 05/07/17 09:00 05/21/17 09:26 (D50w (Vial) Inj) 50 ml UNSCH PRN IV PUSH 05/08/17 00:30 (Glucagon Inj) 1 mg UNSCH PRN OTHER 05/08/17 00:30 (NovoLOG SUPPLEMENTAL SCALE) 1 Q4H SQ 05/08/17 00:30 05/24/17 04:03 (Apresoline Inj) 20 mg Q4H PRN IV PUSH 05/13/17 11:15 05/21/17 02:57 (Norvasc) 10 mg DAILY PO 05/14/17 09:15 05/23/17 08:58 (Depakene Liq) 250 mg BID NG 05/16/17 11:00 05/23/17 20:24 Potassium Chloride/Dextrose 1,000 ml @ 70 mls/hr [id number] IV 05/17/17 23:45 05/24/17 06:02 (Free Water) 300 ml Q4HR G-TUBE 05/18/17 12:00 05/24/17 04:00 (Pepcid) 20 mg DAILY NG 05/18/17 09:00 05/22/17 10:19 (Keppra Liq) 1,000 mg Q12HR NG 05/18/17 09:00 05/23/17 20:24 (Neurontin Liq) 100 mg HS NG 05/18/17 21:00 05/23/17 20:24 (Lanoxin) 0.125 mg DAILY PO 05/20/17 09:00 05/23/17 08:58 (Coreg) 25 mg BID PO 05/19/17 21:00 05/23/17 20:24 (Trandate Inj) 10 mg Q1H PRN IV 05/19/17 13:15 (Haldol Inj) 5 mg Q4H PRN IV 05/20/17 18:45 (Roxicodone Intensol Liq) 5 mg Q4H PO 05/20/17 19:00 05/24/17 06:01 (Cardizem) 30 mg Q6HR PO 05/20/17 18:45 05/24/17 05:59 (Ddavp Inj) 2 mcg Q12HR SQ 05/21/17 21:00 05/23/17 20:25 (Altace) 2.5 mg DAILY PO 05/23/17 09:00 Vital Signs / I&O Vital Signs Date Time Temp Pulse Resp B/P (MAP) Pulse Ox O2 Delivery O2 Flow Rate FiO2 05/24/17 06:00 86 05/24/17 04:39 100 35 05/24/17 04:00 100.1 82 16 134/62 (86) 100 05/24/17 04:00 82 05/24/17 04:00 35 05/24/17 02:00 75 05/24/17 01:12 100 35 05/24/17 00:00 99.7 76 20 127/61 (83) 100 05/24/17 00:00 35 05/24/17 00:00 76 05/23/17 22:12 100 35 05/23/17 22:00 68 05/23/17 20:00 99.4 87 15 140/67 (91) 97 05/23/17 20:00 35 05/23/17 20:00 87 05/23/17 19:01 97 35 05/23/17 18:34 16 05/23/17 18:00 81 05/23/17 17:00 98 35 05/23/17 16:00 97.9 81 16 147/90 (109) 98 05/23/17 16:00 81 05/23/17 16:00 35 05/23/17 14:00 107 05/23/17 12:44 98 35 05/23/17 12:00 98.5 81 16 136/64 (88) 97 05/23/17 12:00 78 05/23/17 12:00 35 05/23/17 10:00 81 05/23/17 08:51 100 35 05/23/17 08:20 100 35 05/23/17 08:00 99.9 89 15 149/69 (95) 100 05/23/17 08:00 35 I/O 05/23/17 05/23/17 05/23/17 05/24/17 05/24/17 05/24/17 07:00 15:00 23:00 07:00 15:00 23:00 Intake Total 1066 ml 753 ml 981 ml Output Total 1850 ml 450 ml 750 ml 900 ml Balance -784 ml -450 ml 3 ml 81 ml Intake IV Total 578 ml 703 ml Tube Feeding 228 ml 81 ml Other 260 ml 50 ml 900 ml Output Urine Total 1700 ml 450 ml 750 ml 700 ml Stool Total 150 ml 200 ml Physical Exam GENERAL: SKIN: Warm and dry. HEAD: Normocephalic. EYES: No scleral icterus. No injection or drainage. NECK: Supple, trachea midline. No JVD or lymphadenopathy. CARDIOVASCULAR: Regular rate and rhythm without murmurs, gallops, or rubs. RESPIRATORY: Breath sounds equal bilaterally. No accessory muscle use. GASTROINTESTINAL: Abdomen soft, non-tender, nondistended. MUSCULOSKELETAL: No cyanosis, or edema. BACK: Nontender without obvious deformity. No CVA tenderness. Laboratory Laboratory Tests Test 05/23/17 10:03 05/24/17 05:37 05/24/17 05:57 Blood Urea Nitrogen 14 MG/DL 14 MG/DL Creatinine 1.17 MG/DL 1.09 MG/DL Random Glucose 266 MG/DL 222 MG/DL Calcium Level 9.2 MG/DL 9.4 MG/DL Sodium Level 145 MEQ/L 141 MEQ/L Potassium Level 3.5 MEQ/L 3.9 MEQ/L Chloride Level 112 MEQ/L 108 MEQ/L Carbon Dioxide Level 26.0 MEQ/L 26.8 MEQ/L Anion Gap 7 MEQ/L 6 MEQ/L Estimat Glomerular Filtration Rate 58 ML/MIN 63 ML/MIN B-Type Natriuretic Peptide 236 PG/ML White Blood Count 8.5 TH/MM3 Red Blood Count 3.04 MIL/MM3 Hemoglobin 9.2 GM/DL Hematocrit 28.2 % Mean Corpuscular Volume 92.8 FL Mean Corpuscular Hemoglobin 30.3 PG Mean Corpuscular Hemoglobin Concent 32.6 % Red Cell Distribution Width 14.5 % Platelet Count 259 TH/MM3 Mean Platelet Volume 10.5 FL Assessment and Plan Problem List: (1) CAD (coronary artery disease) ICD Codes: I25.10 - Atherosclerotic heart disease of [place] coronary artery without angina pectoris (2) CHRONIC OBSTRUCTIVE PULMON DISEASE W ACUTE LOWER RESP INFCT ICD Codes: J44.0 - CHRONIC OBSTRUCTIVE PULMON DISEASE W ACUTE LOWER RESP INFCT Status: Acute (3) Cardiomyopathy ICD Codes: I42.9 - Cardiomyopathy Status: Acute (4) Cardiopulmonary arrest ICD Codes: I46.9 - Cardiac arrest, cause unspecified Status: Acute (5) Diabetes mellitus ICD Codes: E11.9 - Type 2 diabetes mellitus without complications Status: Acute Assessment and Plan 1.) Cardiomyopathy - euvolemic, continue coreg 25 mg bid, start altace 2.5 mg qd , fhv=127 05/23/17 2.) CAD - continue aspirin, statin held due to shock liver and elevated lfts 3.) s/p trach, awaiting halfway care 4.) PAF - continue jaelyn powers, coreg, defer ac determination to neuro Aguila Early MD May 24, 2017 07:36
[2017-05-24] MEDS: CARVEDILOL 12.5 MG TAB PO SCH ×2 (08:18→20:31)
[2017-05-24] MEDS: RAMIPRIL 2.5 MG CAP PO SCH (08:18)
[2017-05-24] MEDS: FAMOTIDINE 20 MG TAB NG SCH (08:19)
[2017-05-24] MEDS: levETIRAcetam 500 MG/5 ML UDC NG SCH ×2 (08:19→20:31)
[2017-05-24] MEDS: DESMOPRESSIN ACETATE 4 MCG/ML VIAL SQ SCH ×2 (08:19→20:45)
[2017-05-24] MEDS: ASPIRIN EC 81 MG TABEC PO SCH (08:20)
[2017-05-24] MEDS: DIGOXIN 0.125 MG TAB PO SCH (08:20)
[2017-05-24] MEDS: SODIUM CHLORIDE 0.9% FLUSH 10 ML FLUSH IV FLUSH SCH ×2 (08:21→20:31)
[2017-05-24] MEDS: LACTULOSE SYRUP 20 GM/30 ML CUP OG-TUBE SCH (08:21)
[2017-05-24] MEDS: VALPROIC ACID SYRUP 250 MG/5 ML UDC NG SCH ×2 (08:21→20:31)
[2017-05-24] MEDS: CHLORHEXIDINE 0.12% (ORAL KIT) 15 ML CUP MT SCH ×2 (08:22→20:32)
[2017-05-24] MEDS: DOCUSATE SODIUM 50 MG/SENNA 8.6 MG TAB PO SCH ×2 (08:49→20:31)
--- NOTE | 2017-05-24 10:50 | HHI.CCPN ---
Subjective Remarks/Hospital Course 56-year-old female with past medical history of hypertension, chronic systolic heart failure, diabetes, COPD bipolar disorder, seizure disorder who presented to [facility] emergency department via [facility] following cardiac arrest. [facility] was originally called for shortness of breath and when they arrived patient was unresponsive and in PEA. Combitube was placed. CPR was initiated and patient was administered epinephrine 4, 1 amp bicarbonate, Narcan 2 mg prior to arrival via left tibial I/O. Blood glucose was 334. Exact duration of prehospital CPR is unclear. Combitube was removed and she was intubated upon arrival. Patient had ROSC 5 minutes after arrival. She received additional epinephrine 2 in the ED. She also received 1 L normal saline bolus, vancomycin, Zosyn in the ED. Critical care medicine is consulted for admission. EKG has no acute ischemia. SUBJ 05/07: Intubated sedated neuromuscularly paralyzed. Induced hypothermia initiated at 7 AM, 2-D echo shows EF 25-30%, mild to moderate MR. Serial troponins negative 05/08: Remains neuromuscularly paralyzed. Hypothermia will be completed by the known and rewarming was started. Remains off inotropes and pressors 05/09: Hypothermia protocol completed, placed overnight on Versed also in addition to propofol and fentanyl for tachycardia and asynchrony. Currently patient while on sedation do not open eyes with very slight withdrawal to pain 05/10: Developed Afib with RVR yesterday with HR in 200's DC cardioverted at night by Dr. Chu. Placed back on Versed. RN reports paroxysmal A fib. EEG pending at this time for subclinical sz. EEG 05/07 burst suppression pattern. Neuro prognosis poor 05/11: No neuro improvement. Creat worsening, nephrology consulted. EEG severe encephalopathy consistent with anoxic injury. Palliative care is following 05/12: There had been no improvement in neuro status after completion of code cool approximately 4 days ago. Patient has not shown not seen any signs of improvement. Palliative care met with family. Patient is developing multiorgan dysfunction syndrome. Daughter wants withdrawal of life support but wants to wait until some other family members can visit from [place] 05/13: No meaningful recovery yet. Opens eyes partially to pain. Weakly withdraws all extremities to pain. UO 1.8L in 24 hours. Family considering withdrawal of life support today, considering comorbidities and poor neuro recovery after cooling 05/14: Eyes are spontaneously open but with upward gaze. No tracking no response to threat. Withdraws bilateral upper extremity to pain. Had been off sedation more than 4 days 05/15: Neuro exam remains unchanged, even less eye-opening and withdrawal. Fever up to 103.5. Pancultured. Continue on vancomycin and Zosyn until cultures are back. 05/16: no improvements or changes to mental status. persistent encephalopathy. poor prognosis. family wants to wait until other family can be present. palliative care clarifying goals. 05/17: no changes to poor mental status. still awaiting family. hypernatremia worsening. nephrology following. Cr improving though; ahsan post-ATN diuresis. 05/18: Tmax 98.9. Positive gag. Positive corneal reflex. Blinks. Does not withdraw to pain. Went to A. fib with RVR the today requiring synchronous cardioversion with 200 J currently in sinus tachycardia. Given digoxin 0.5 mg IV now. 05/19: Afebrile. Has not brain injury. Daughter yesterday she says she was the patient trach and PEG. Started on desmopressin per nephrology yesterday. Sodium still remains elevated. 05/20: no improvements in severe encephalopathy. Daughter continues to want aggressive treatment. will proceed with trach and PEG, and pursue long-term placement. 05/21: no improvements in neuro exam. s/p trach yesterday. GI consulted for PEG. needs placement. sodium downtrending and improving. 05/22: no improvements or changes. on SBT this AM on my eval. persistently encephalopathic. needs placement. Sodium derangements slowly improving. 05/23: PEG planned for today. weaning vent slowly. metabolic derangements improving. Cr downtrending. awaiting placement. Subjective 05/24: failed SBT yesterday for tachypnea. failed again today for persistent tachypnea and low tidal volumes. continue trying daily sbt's. Objective Vital Signs Date Time Temp Pulse Resp B/P (MAP) Pulse Ox O2 Delivery O2 Flow Rate FiO2 05/24/17 10:39 98 35 05/24/17 06:00 86 05/24/17 04:00 100.1 16 134/62 (86) Intake and Output 05/24/17 05/24/17 05/25/17 08:00 16:00 00:00 Intake Total 981 ml Output Total 900 ml Balance 81 ml Result Diagram: 05/24/17 0537 05/24/17 0557 Imaging Last Impressions Chest X-Ray 05/18/17 0000 Signed Impressions: Service Date/Time: Thursday, May 18, 2017 08:14 - CONCLUSION: ET tube tip that the upper thoracic level. Increasing left lower lung consolidation. Obi Barnes MD Abdomen Ultrasound 05/07/17 0000 Signed Impressions: Service Date/Time: Sunday, May 07, 2017 14:19 - CONCLUSION: 1. Echogenic liver compatible with fatty infiltration or hepatocellular disease. 2. Cholecystectomy Laith Coe MD Head CT [id number]/06/[id number] Signed Impressions: Service Date/Time: Sunday, May 07, 2017 03:14 - CONCLUSION: Normal examination. Noé Ybarra MD CT Angiography 05/06/17 0000 Signed Impressions: Service Date/Time: Sunday, May 07, 2017 03:21 - CONCLUSION: 1. No pulmonary embolus. 2. Bibasilar areas of consolidation or atelectasis being worse on the left. There are minimal bilateral pleural effusions. Noé Ybarra MD Objective Remarks GENERAL: 56-year-old female who is trached, unresponsive. SKIN: Warm and dry. Well perfused HEAD: Atraumatic. Normocephalic. EYES: Bilateral exophthalmus. Pupils equal and round, reactive around 4 mm bilaterally. Positive corneal reflex ENT: No nasal bleeding or discharge. fresh tracheostomy in place without evidence of bleeding. NECK: Trachea midline. No JVD appreciated. No meningismus CARDIOVASCULAR: normal rate, regular rhythm. sinus by tele. RESPIRATORY: PSV 5/5. fio2 35%, tachypneic. equal chest rise. GASTROINTESTINAL: Abdomen protuberant soft. No appreciable tenderness , rebound or guarding. : Benoit catheter is in place MUSCULOSKELETAL: Extremities without significant peripheral edema NEUROLOGICAL: Blinks.. Minimal partial eye opening to pain. Slight withdrawal to pain in all 4 ext upper extremities more than lower. Pupils as above. Positive gag. A/P Problem List: (1) Cardiac arrest ICD Code: I46.9 - Cardiac arrest, cause unspecified Status: Resolved (2) Anoxic-ischemic encephalopathy ICD Code: G93.1 - Anoxic brain damage, not elsewhere classified; I67.82 - Cerebral ischemia Status: Chronic (3) Chronic systolic heart failure ICD Code: I50.22 - Chronic systolic (congestive) heart failure Status: Chronic (4) Exophthalmos of both eyes ICD Code: H05.20 - Unspecified exophthalmos Status: Chronic (5) HTN (hypertension) ICD Code: I10 - Essential (primary) hypertension Status: Chronic (6) HLD (hyperlipidemia) ICD Code: E78.5 - Hyperlipidemia, unspecified Status: Chronic (7) Cardiogenic shock ICD Code: R57.0 - Cardiogenic shock Status: Resolved (8) Acute respiratory failure with hypercapnia ICD Code: J96.02 - Acute respiratory failure with hypercapnia Status: Chronic (9) Obesity (BMI 30-39.9) ICD Code: E66.9 - Obesity, unspecified Status: Chronic (10) CHF (congestive heart failure) ICD Code: I50.9 - CHF (congestive heart failure) Status: Resolved (11) Bipolar disorder ICD Code: F31.9 - Bipolar affective disorder Status: Chronic (12) COPD (chronic obstructive pulmonary disease) ICD Code: J44.9 - Chronic obstructive pulmonary disease Status: Chronic (13) Tobacco abuse ICD Code: Z72.0 - Tobacco use Status: Chronic Assessment and Plan Assessment: 56yF with severe hypoxic-ischemic encephalopathy. poor prognosis. family wants aggressive care. s/p trach and PEG. we have been attempting to wean pressure on CPAP but unable given poor tidal volumes and tachypnea. will need long-term acute care facility to facilitate pulmonary rehab for weaning. stable to leave inpatient setting at this point if it weren't for failure to wean after multiple days of attempts (initial CPAP trials started 05/22). NEURO/PSYCH: Acute anoxic encephalopathy, severe Bipolar disorder Exophthalmus Status post completion of induced therapeutic hypothermia. initiated at 0700 , completed 05/08/17. Off sedation more than 7 days No neurologic improvement yet, prognosis poor. Neurology Dr. Solitario. CT brain - negative. Depakote level. 48. Was on Depakote for bipolar. restarted Depakote at 250 twice a day 500 daily at home Lactulose 30 daily. Ammonia level down to 31. Neg urine drug screen, APAP, ASA level. Resumed gabapentin 100 milligrams at night. Holding bupropion 150 mg daily EEG shows severe encephalopathy, burst suppression pattern. Repeat EEG severe encephalopathy RESP: Acute hypercapnic respiratory failure COPD Tobacco abuse Ventilator bundle. Albuterol/ipratropium aerosols q6 hours. Albuterol q2 hours prn. No Wheezing s/p perc trach 05/[address] Melvin and Mathieu. CV: s/p PEA cardiac arrest Post cardiac arrest syndrome with shock (resolved) Afib with RVR - resolved. Chronic systolic heart failure with ejection fraction 15-20% (25-30 on echo) Nonobstructive Coronary artery disease Essential Hypertension, uncontrolled Hyperlipidemia Holding valsartan 160 mg due to acute kidney injury. Carvedilol 12.5 mg twice a day increased to 25 mg twice a day and amlodipine 10 mg daily. use IV Hydralazine and labetalol PRN for SBP >170. DCCV for Afib RVR with HR 200/min. 2. Second time 05/18 Continue Cardizem for paroxysmal A fib and digoxin 0.125 mg daily EKG normal sinus rhythm rate of 99. No apparent acute ischemia. Follow-up serial EKGs and cardiac markers-negative. 2-D echo EF 25-30%. Cardiology Dr. Early Etiology of cardiac arrest unclear. Most likely due to hypercapnia and respiratory acidosis Continue aspirin 81 mg daily. Holding statin simvastatin 40 mg daily due to elevated LFTs. PO cardizem. GI: GERD Transaminitis, probable ischemic hepatopathy. Orogastric tube. RUQ us-fatty liver, hepatitis panel negative Tube feeds with Glucerna currently at 45 cc an hour Famotidine for GI prophylaxis Docusate sodium/senna twice a day for bowel regimen consult GI for PEG placement: planned for today. FEN/RENAL: MARQUEZ Lactic acidemia Hypernatremia - slowly improving but persistent. Benoit in place. Monitor intake and output. Monitor electrolytes and replace as indicated. Hold home NSAID's. Creat improved today Nephrology consult for worsening creatinine. Dr. Hughes following. Nonoliguric renal failure Currently on D5 water with 20 KCl at 70 cc an hour. Free water 300 cc every 4 hours. Recheck sodium in AM. ID: High fever, sepsis Candiduria Bacteremia with strep viridans, Coag neg staph, pleomorphic GPR s/p full course of Vanc/Zosyn for strep bacteremia (2 weeks of vancomycin for GPC bacteremia). d/c and monitor clinically. Blood cultures 05/06 with strep radius, coag negative staph and pleomorphic gram -positive rods. Urine culture 05/03 with Lucinda albicans HEME: No acute hematologic issues. ENDO: Diabetes mellitus with acute hyperglycemia Hold metformin 1000 mg twice a day, glipizide 5 mg twice a day, insulin glargine 24 units daily. SSI Novulog every 4 hours/low Thyroid studies-essentially euthyroid PROPH: Sq heparin for DVT prophylaxis. Famotidine for stress ulcer prophylaxis and history of GERD ACCESS: Peripheral IV. Central line if indicated. ALT CODE. Palliative care following. Prognosis appears very poor. Problem Qualifiers (1) HTN (hypertension): Qualified Codes: I10 - Essential (primary) hypertension Luis Manuel Melvin MD May 24, 2017 10:49
--- NOTE | 2017-05-24 11:42 | HHI.NPPN ---
Subjective History of Present Illness 56 year old female with cardiomyopathy COPD CAD Anoxic bran injury and develop ARF. Additional Remarks Patient remain comatose off sherry on T tube O2 Objective Data Data Vital Signs Date Time Temp Pulse Resp B/P (MAP) Pulse Ox O2 Delivery O2 Flow Rate FiO2 05/24/17 10:39 98 35 05/24/17 10:00 77 05/24/17 08:35 99 35 05/24/17 08:00 98.3 83 18 152/68 (96) 96 05/24/17 08:00 35 05/24/17 08:00 83 05/24/17 06:00 86 05/24/17 04:39 100 35 05/24/17 04:00 100.1 82 16 134/62 (86) 100 05/24/17 04:00 82 05/24/17 04:00 35 05/24/17 02:00 75 05/24/17 01:12 100 35 05/24/17 00:00 99.7 76 20 127/61 (83) 100 05/24/17 00:00 35 05/24/17 00:00 76 05/23/17 22:12 100 35 05/23/17 22:00 68 05/23/17 20:00 99.4 87 15 140/67 (91) 97 05/23/17 20:00 35 05/23/17 20:00 87 05/23/17 19:01 97 35 05/23/17 18:34 16 05/23/17 18:00 81 05/23/17 17:00 98 35 05/23/17 16:00 97.9 81 16 147/90 (109) 98 05/23/17 16:00 81 05/23/17 16:00 35 05/23/17 14:00 107 05/23/17 12:44 98 35 05/23/17 12:00 98.5 81 16 136/64 (88) 97 05/23/17 12:00 78 05/23/17 12:00 35 -: 05/24/17 0537 05/24/17 0557 Physical Exam Neck Neck Exam: Neck Supple Pulmonary Resp Exam: Breath Sounds Equal, Rhonchi, Decreased Bases, Poor Inspiratory Effort Cardiology CV Exam: Regular Gastrointestinal/Abdomen GI Exam: Soft, Bowel Sounds Present, Distended Extremeties Extremities Exam: Moderate Edema Neurologic Neuro Exam: Unresponsive Assessment/Plan Problem List: (1) Acute renal failure ICD Codes: N17.9 - Acute kidney failure, unspecified Plan: Patient with acute renal failure cardiomyopathy CHF coronary syndrome ATN ARF/CKD stable but she has anoxic brain injury and will be on Ventilator support Her prognosis is poor due to anoxic brain injury BMP Na 141 /Cr 1.09 has DI UOP 1.9 L on DDAVP 2mcg q 12 water flushes Follow the urine out put and BMP. (2) Cardiopulmonary arrest ICD Codes: I46.9 - Cardiac arrest, cause unspecified Status: Acute Plan: Critical care following (3) Cardiogenic shock ICD Codes: R57.0 - Cardiogenic shock Status: Resolved Plan: Cardiomyopathy (4) Anoxic encephalopathy ICD Codes: G93.1 - Anoxic brain damage, not elsewhere classified Status: Acute Plan: Brain injury with no recovery (5) Cardiomyopathy ICD Codes: I42.9 - Cardiomyopathy Status: Acute Plan: EF of 20% Problem Qualifiers (1) Acute renal failure: Qualified Codes: N17.0 - Acute kidney failure with tubular necrosis Apollo Hughes MD May 24, 2017 11:42
[2017-05-24] MEDS: ARTIFICIAL TEARS OPTH OINT 3.5 APPLIC/3.5 GM TUBO EACH EYE SCH ×2 (11:50→20:46)
--- NOTE | 2017-05-24 15:30 | HHI.GIFU ---
Subjective Remarks Pt on vent. NAD. Opened eyes. PEG not successful, IR consulted. (Marilin Diaz) Objective Vitals I&O Vital Signs Date Time Temp Pulse Resp B/P (MAP) Pulse Ox O2 Delivery O2 Flow Rate FiO2 05/24/17 12:00 35 05/24/17 12:00 82 05/24/17 12:00 98.8 82 18 141/70 (93) 97 05/24/17 10:39 98 35 05/24/17 10:00 77 05/24/17 08:35 99 35 05/24/17 08:00 98.3 83 18 152/68 (96) 96 05/24/17 08:00 35 05/24/17 08:00 83 05/24/17 06:00 86 05/24/17 04:39 100 35 05/24/17 04:00 100.1 82 16 134/62 (86) 100 05/24/17 04:00 82 05/24/17 04:00 35 05/24/17 02:00 75 05/24/17 01:12 100 35 05/24/17 00:00 99.7 76 20 127/61 (83) 100 05/24/17 00:00 35 05/24/17 00:00 76 05/23/17 22:12 100 35 05/23/17 22:00 68 05/23/17 20:00 99.4 87 15 140/67 (91) 97 05/23/17 20:00 35 05/23/17 20:00 87 05/23/17 19:01 97 35 05/23/17 18:34 16 05/23/17 18:00 81 05/23/17 17:00 98 35 05/23/17 16:00 97.9 81 16 147/90 (109) 98 05/23/17 16:00 81 05/23/17 16:00 35 I/O 05/23/17 05/23/17 05/23/17 05/24/17 05/24/17 05/24/17 07:00 15:00 23:00 07:00 15:00 23:00 Intake Total 1066 ml 753 ml 981 ml Output Total 1850 ml 450 ml 750 ml 900 ml Balance -784 ml -450 ml 3 ml 81 ml Intake IV Total 578 ml 703 ml Tube Feeding 228 ml 81 ml Other 260 ml 50 ml 900 ml Output Urine Total 1700 ml 450 ml 750 ml 700 ml Stool Total 150 ml 200 ml Laboratory Laboratory Tests Test 05/24/17 05:37 05/24/17 05:57 White Blood Count 8.5 Red Blood Count 3.04 Hemoglobin 9.2 Hematocrit 28.2 Mean Corpuscular Volume 92.8 Mean Corpuscular Hemoglobin 30.3 Mean Corpuscular Hemoglobin Concent 32.6 Red Cell Distribution Width 14.5 Platelet Count 259 Mean Platelet Volume 10.5 Blood Urea Nitrogen 14 Creatinine 1.09 Random Glucose 222 Calcium Level 9.4 Sodium Level 141 Potassium Level 3.9 Chloride Level 108 Carbon Dioxide Level 26.8 Anion Gap 6 Estimat Glomerular Filtration Rate 63 Date/Time Source Procedure Growth Status 05/14/17 11:30 Blood Peripheral Aerobic Blood Culture - Final NO GROWTH IN 5 DAYS Complete 05/14/17 11:30 Blood Peripheral Anaerobic Blood Culture - Final NO GROWTH IN 5 DAYS Complete 05/15/17 00:30 Sputum Endotracheal Gram Stain - Final Complete 05/15/17 00:30 Sputum Endotracheal Sputum Culture - Final HEAVY GROWTH NORMAL RESPIRATORY JORDEN Complete 05/14/17 21:45 Urine Catheterized Urine Urine Culture - Final Lucinda Albicans Complete Physical Exam HEENT: Normocephalic trach CHEST: coarse CARDIAC: RRR with no murmur gallop or rubs. ABDOMEN: Soft, obese, bowel sounds are present in all four quadrants. EXTREMITIES: No clubbing, cyanosis, or edema. SKIN: Normal; no rash; no jaundice. [employer]: Sedated on a vent. (Marilin Diaz) Assessment and Plan Plan ASSESSMENT: - Dysphagia, requiring long term care pharmacist enteral feeding. Family requesting aggressive treatment. EGD normal. PEG not successful, illumination could not be seen. IR consulted for G tube placement. nutrition recommends glucerna 1.5 with GR 45ml/hr - S/P cardiac arrest. PLAN: - await IR consult for gtube - nutrition recs glucerna 1.5 with goal rate 45ml/hr - Supportive care - GI will sign off. please reconsult if needed Patient seen and examined by and myself and this note is written on her behalf. (Marilin Diaz) Marilin Diaz May 24, 2017 15:30 Cher Robles MD May 24, 2017 19:32
[2017-05-24] MEDS: GABAPENTIN 250 MG/5 ML UDC NG SCH (20:31)
[2017-05-25] VITALS (19 sets, daily range): BP systolic 118–154; BP diastolic 58–71; PULSE 63–87; RESP 14–25; TEMP 99–99.9; O2SAT 92–100
[2017-05-25] MEDS: INSULIN ASPART SUPPLEMENTAL SCALE SQ SCH ×5 (03:51→20:30)
[2017-05-25] MEDS: oxyCODONE HCL ORAL CONC 5 MG/0.25 ML SYRINGE PO SCH ×5 (03:51→21:22)
[2017-05-25] MEDS: FREE WATER G-TUBE SCH ×5 (03:51→20:00)
[2017-05-25] MEDS: CHLORHEXIDINE GLUCONATE 2 % 1 PACK (2 CLOTHS) TOP SCH (03:51)
[2017-05-25] MEDS: DILTIAZEM HCL 30 MG TAB PO SCH ×3 (06:03→18:00)
--- NOTE | 2017-05-25 07:46 | HHI.CCPN ---
Subjective Remarks/Hospital Course 56-year-old female with past medical history of hypertension, chronic systolic heart failure, diabetes, COPD bipolar disorder, seizure disorder who presented to [facility] emergency department via [facility] following cardiac arrest. [facility] was originally called for shortness of breath and when they arrived patient was unresponsive and in PEA. Combitube was placed. CPR was initiated and patient was administered epinephrine 4, 1 amp bicarbonate, Narcan 2 mg prior to arrival via left tibial I/O. Blood glucose was 334. Exact duration of prehospital CPR is unclear. Combitube was removed and she was intubated upon arrival. Patient had ROSC 5 minutes after arrival. She received additional epinephrine 2 in the ED. She also received 1 L normal saline bolus, vancomycin, Zosyn in the ED. Critical care medicine is consulted for admission. EKG has no acute ischemia. SUBJ 05/07: Intubated sedated neuromuscularly paralyzed. Induced hypothermia initiated at 7 AM, 2-D echo shows EF 25-30%, mild to moderate MR. Serial troponins negative 05/08: Remains neuromuscularly paralyzed. Hypothermia will be completed by the known and rewarming was started. Remains off inotropes and pressors 05/09: Hypothermia protocol completed, placed overnight on Versed also in addition to propofol and fentanyl for tachycardia and asynchrony. Currently patient while on sedation do not open eyes with very slight withdrawal to pain 05/10: Developed Afib with RVR yesterday with HR in 200's DC cardioverted at night by Dr. Chu. Placed back on Versed. RN reports paroxysmal A fib. EEG pending at this time for subclinical sz. EEG 05/07 burst suppression pattern. Neuro prognosis poor 05/11: No neuro improvement. Creat worsening, nephrology consulted. EEG severe encephalopathy consistent with anoxic injury. Palliative care is following 05/12: There had been no improvement in neuro status after completion of code cool approximately 4 days ago. Patient has not shown not seen any signs of improvement. Palliative care met with family. Patient is developing multiorgan dysfunction syndrome. Daughter wants withdrawal of life support but wants to wait until some other family members can visit from [place] 05/13: No meaningful recovery yet. Opens eyes partially to pain. Weakly withdraws all extremities to pain. UO 1.8L in 24 hours. Family considering withdrawal of life support today, considering comorbidities and poor neuro recovery after cooling 05/14: Eyes are spontaneously open but with upward gaze. No tracking no response to threat. Withdraws bilateral upper extremity to pain. Had been off sedation more than 4 days 05/15: Neuro exam remains unchanged, even less eye-opening and withdrawal. Fever up to 103.5. Pancultured. Continue on vancomycin and Zosyn until cultures are back. 05/16: no improvements or changes to mental status. persistent encephalopathy. poor prognosis. family wants to wait until other family can be present. palliative care clarifying goals. 05/17: no changes to poor mental status. still awaiting family. hypernatremia worsening. nephrology following. Cr improving though; ahsan post-ATN diuresis. 05/18: Tmax 98.9. Positive gag. Positive corneal reflex. Blinks. Does not withdraw to pain. Went to A. fib with RVR the today requiring synchronous cardioversion with 200 J currently in sinus tachycardia. Given digoxin 0.5 mg IV now. 05/19: Afebrile. Has not brain injury. Daughter yesterday she says she was the patient trach and PEG. Started on desmopressin per nephrology yesterday. Sodium still remains elevated. 05/20: no improvements in severe encephalopathy. Daughter continues to want aggressive treatment. will proceed with trach and PEG, and pursue long-term placement. 05/21: no improvements in neuro exam. s/p trach yesterday. GI consulted for PEG. needs placement. sodium downtrending and improving. 05/22: no improvements or changes. on SBT this AM on my eval. persistently encephalopathic. needs placement. Sodium derangements slowly improving. 05/23: PEG planned for today. weaning vent slowly. metabolic derangements improving. Cr downtrending. awaiting placement. 05/24: failed SBT yesterday for tachypnea. failed again today for persistent tachypnea and low tidal volumes. continue trying daily sbt's. Subjective 05/25: again attempted to wean pressure support and failed weaning attempt. no other acute issues. no indication for inpatient admission at this time. Needs LTAC for aggressive pulmonary rehab and weaning, but insurance denied. Objective Vital Signs Date Time Temp Pulse Resp B/P (MAP) Pulse Ox O2 Delivery O2 Flow Rate FiO2 05/25/17 06:00 75 05/25/17 04:15 97 35 05/25/17 04:00 99.0 15 118/58 (78) Intake and Output 05/25/17 05/25/17 05/26/17 08:00 16:00 00:00 Intake Total 1831 ml Output Total 1000 ml Balance 831 ml Result Diagram: 05/24/17 0537 05/24/17 0557 Imaging Last Impressions Chest X-Ray 05/18/17 0000 Signed Impressions: Service Date/Time: Thursday, May 18, 2017 08:14 - CONCLUSION: ET tube tip that the upper thoracic level. Increasing left lower lung consolidation. Obi Barnes MD Abdomen Ultrasound 05/07/17 0000 Signed Impressions: Service Date/Time: Sunday, May 07, 2017 14:19 - CONCLUSION: 1. Echogenic liver compatible with fatty infiltration or hepatocellular disease. 2. Cholecystectomy Laith Coe MD Head CT [id number]/06/172123 Signed Impressions: Service Date/Time: Sunday, May 07, 2017 03:14 - CONCLUSION: Normal examination. Noé Ybarra MD CT Angiography 05/06/17 0000 Signed Impressions: Service Date/Time: Sunday, May 07, 2017 03:21 - CONCLUSION: 1. No pulmonary embolus. 2. Bibasilar areas of consolidation or atelectasis being worse on the left. There are minimal bilateral pleural effusions. Noé Ybarra MD Objective Remarks GENERAL: 56-year-old female who is trached, unresponsive. SKIN: Warm and dry. Well perfused HEAD: Atraumatic. Normocephalic. EYES: Bilateral exophthalmus. Pupils equal and round, reactive around 4 mm bilaterally. Positive corneal reflex ENT: No nasal bleeding or discharge. fresh tracheostomy in place without evidence of bleeding. NECK: Trachea midline. No JVD appreciated. No meningismus CARDIOVASCULAR: normal rate, regular rhythm. sinus by tele. RESPIRATORY: PSV 5/5. fio2 35%, tachypneic. equal chest rise. GASTROINTESTINAL: Abdomen protuberant soft. No appreciable tenderness , rebound or guarding. : Benoit catheter is in place MUSCULOSKELETAL: Extremities without significant peripheral edema NEUROLOGICAL: Blinks.. Minimal partial eye opening to pain. Slight withdrawal to pain in all 4 ext upper extremities more than lower. Pupils as above. Positive gag. A/P Problem List: (1) Cardiac arrest ICD Code: I46.9 - Cardiac arrest, cause unspecified Status: Resolved (2) Anoxic-ischemic encephalopathy ICD Code: G93.1 - Anoxic brain damage, not elsewhere classified; I67.82 - Cerebral ischemia Status: Chronic (3) Chronic systolic heart failure ICD Code: I50.22 - Chronic systolic (congestive) heart failure Status: Chronic (4) Exophthalmos of both eyes ICD Code: H05.20 - Unspecified exophthalmos Status: Chronic (5) HTN (hypertension) ICD Code: I10 - Essential (primary) hypertension Status: Chronic (6) HLD (hyperlipidemia) ICD Code: E78.5 - Hyperlipidemia, unspecified Status: Chronic (7) Cardiogenic shock ICD Code: R57.0 - Cardiogenic shock Status: Resolved (8) Acute respiratory failure with hypercapnia ICD Code: J96.02 - Acute respiratory failure with hypercapnia Status: Chronic (9) Obesity (BMI 30-39.9) ICD Code: E66.9 - Obesity, unspecified Status: Chronic (10) CHF (congestive heart failure) ICD Code: I50.9 - CHF (congestive heart failure) Status: Resolved (11) Bipolar disorder ICD Code: F31.9 - Bipolar affective disorder Status: Chronic (12) COPD (chronic obstructive pulmonary disease) ICD Code: J44.9 - Chronic obstructive pulmonary disease Status: Chronic (13) Tobacco abuse ICD Code: Z72.0 - Tobacco use Status: Chronic Assessment and Plan Assessment: 56yF with severe hypoxic-ischemic encephalopathy. poor prognosis. family wants aggressive care. s/p trach and PEG. we have been attempting to wean pressure on CPAP but unable given poor tidal volumes and tachypnea. will need long-term acute care facility to facilitate pulmonary rehab for weaning. stable to leave inpatient setting at this point if it weren't for failure to wean after multiple days of attempts (initial CPAP trials started 05/22). NEURO/PSYCH: Acute anoxic encephalopathy, severe Bipolar disorder Exophthalmus Status post completion of induced therapeutic hypothermia. initiated at 0700 , completed 05/08/17. Off sedation more than 7 days No neurologic improvement yet, prognosis poor. Neurology Dr. Solitario. CT brain - negative. Depakote level. 48. Was on Depakote for bipolar. restarted Depakote at 250 twice a day 500 daily at home Lactulose 30 daily. Ammonia level down to 31. Neg urine drug screen, APAP, ASA level. Resumed gabapentin 100 milligrams at night. Holding bupropion 150 mg daily EEG shows severe encephalopathy, burst suppression pattern. Repeat EEG severe encephalopathy RESP: Acute hypercapnic respiratory failure COPD Tobacco abuse Ventilator bundle. Albuterol/ipratropium aerosols q6 hours. Albuterol q2 hours prn. No Wheezing s/p perc trach 05/[address] Melvin and Mathieu. daily weaning attempts. continues to fail. needs LTAC for aggressive pulmonary rehab. CV: s/p PEA cardiac arrest Post cardiac arrest syndrome with shock (resolved) Afib with RVR - resolved. Chronic systolic heart failure with ejection fraction 15-20% (25-30 on echo) Nonobstructive Coronary artery disease Essential Hypertension, uncontrolled Hyperlipidemia Holding valsartan 160 mg due to acute kidney injury. Carvedilol 12.5 mg twice a day increased to 25 mg twice a day and amlodipine 10 mg daily. use IV Hydralazine and labetalol PRN for SBP >170. DCCV for Afib RVR with HR 200/min. 2. Second time 05/18 Continue Cardizem for paroxysmal A fib and digoxin 0.125 mg daily EKG normal sinus rhythm rate of 99. No apparent acute ischemia. Follow-up serial EKGs and cardiac markers-negative. 2-D echo EF 25-30%. Cardiology Dr. Early Etiology of cardiac arrest unclear. Most likely due to hypercapnia and respiratory acidosis Continue aspirin 81 mg daily. Holding statin simvastatin 40 mg daily due to elevated LFTs. PO cardizem. GI: GERD Transaminitis, probable ischemic hepatopathy. Orogastric tube. RUQ us-fatty liver, hepatitis panel negative Tube feeds with Glucerna currently at 45 cc an hour Famotidine for GI prophylaxis Docusate sodium/senna twice a day for bowel regimen s/p PEG placement. FEN/RENAL: MARQUEZ Lactic acidemia Hypernatremia - slowly improving but persistent. Benoit in place. Monitor intake and output. Monitor electrolytes and replace as indicated. Hold home NSAID's. Creat improved today Nephrology consult for worsening creatinine. Dr. Hughes following. Nonoliguric renal failure Currently on D5 water with 20 KCl at 70 cc an hour. Free water 300 cc every 4 hours. Recheck sodium in AM. ID: High fever, sepsis Candiduria Bacteremia with strep viridans, Coag neg staph, pleomorphic GPR s/p full course of Vanc/Zosyn for strep bacteremia (2 weeks of vancomycin for GPC bacteremia). d/c and monitor clinically. Blood cultures 05/06 with strep radius, coag negative staph and pleomorphic gram -positive rods. Urine culture 05/03 with Lucinda albicans HEME: No acute hematologic issues. ENDO: Diabetes mellitus with acute hyperglycemia Hold metformin 1000 mg twice a day, glipizide 5 mg twice a day, insulin glargine 24 units daily. SSI Novulog every 4 hours/low Thyroid studies-essentially euthyroid PROPH: Sq heparin for DVT prophylaxis. Famotidine for stress ulcer prophylaxis and history of GERD ACCESS: Peripheral IV. Central line if indicated. ALT CODE. Palliative care following. Prognosis appears very poor. Problem Qualifiers (1) HTN (hypertension): Qualified Codes: I10 - Essential (primary) hypertension Luis Manuel Melvin MD May 25, 2017 07:46
[2017-05-25] MEDS: CARVEDILOL 12.5 MG TAB PO SCH ×2 (08:51→21:22)
[2017-05-25] MEDS: levETIRAcetam 500 MG/5 ML UDC NG SCH ×2 (08:51→21:21)
[2017-05-25] MEDS: LACTULOSE SYRUP 20 GM/30 ML CUP OG-TUBE SCH (08:51)
[2017-05-25] MEDS: DESMOPRESSIN ACETATE 4 MCG/ML VIAL SQ SCH ×2 (08:51→21:24)
[2017-05-25] MEDS: RAMIPRIL 2.5 MG CAP PO SCH (08:51)
[2017-05-25] MEDS: VALPROIC ACID SYRUP 250 MG/5 ML UDC NG SCH ×2 (08:51→21:22)
[2017-05-25] MEDS: DIGOXIN 0.125 MG TAB PO SCH (08:52)
[2017-05-25] MEDS: SODIUM CHLORIDE 0.9% FLUSH 10 ML FLUSH IV FLUSH SCH ×2 (08:52→21:22)
[2017-05-25] MEDS: ASPIRIN EC 81 MG TABEC PO SCH (08:52)
[2017-05-25] MEDS: DOCUSATE SODIUM 50 MG/SENNA 8.6 MG TAB PO SCH ×2 (08:52→21:00)
[2017-05-25] MEDS: FAMOTIDINE 20 MG TAB NG SCH (08:52)
[2017-05-25] MEDS: ARTIFICIAL TEARS OPTH OINT 3.5 APPLIC/3.5 GM TUBO EACH EYE SCH ×2 (08:53→21:00)
[2017-05-25] MEDS: CHLORHEXIDINE 0.12% (ORAL KIT) 15 ML CUP MT SCH ×2 (08:53→20:00)
--- NOTE | 2017-05-25 13:25 | HHI.HCPN ---
Reason for visit a. To assist with evaluation and management of symptoms including: Encephalopathy. b. To assist medical decision maker(s) with: better understanding of current medical conditions; weighing benefits/burdens of medical treatment options; making medical treatment decisions. . Subjective/Interval History Patient seen and examined in ICU. No family at bedside. The patient remains unresponsive off sedation. Opens closed. Does not respond to voice or painful stimuli today. On CPAP via trach. GI performed EGD, was unable to place PEG tube as transillumination not seen due to obesity. Interventional radiology was consulted for PEG placement. Discussed with case management, consult pending to [facility]. Tmax 99.4. Vital signs stable. No new imaging or labs. No evidence of neurologic improvement. . Family/friend interactions Palliative care previously provided number. . Advance Directives Living Will: Never completed Health Care Surrogate: Never completed Durable Power of Deputy Sheriff Generalist: Never completed Advance Directive Specifics Health Care Surrogate(s): No written advanced directives. The patient is unmarried and has just one child , daughter Jitendra who lives in [place]. Patient is not capacitated and very unlikely to regain capacity for decision-making, According to [place] Statutes, health care proxy decision making falls to Jitendra Garcia. . Significant change in goals: Alternate Code: Intubation Only. Desires continued aggressive care short of code status. . Objective Vital Signs Date Time Temp Pulse Resp B/P (MAP) Pulse Ox O2 Delivery O2 Flow Rate FiO2 05/25/17 12:25 99 35 05/25/17 10:00 72 05/25/17 08:47 97 35 05/25/17 08:00 99.4 72 15 135/61 (85) 99 05/25/17 08:00 72 05/25/17 08:00 35 05/25/17 06:00 75 05/25/17 04:15 97 35 05/25/17 04:00 35 05/25/17 04:00 99.0 70 15 118/58 (78) 96 05/25/17 04:00 70 05/25/17 02:00 72 05/25/17 01:12 96 35 05/25/17 00:00 99.9 77 25 135/63 (87) 94 05/25/17 00:00 35 05/25/17 00:00 77 05/24/17 22:15 96 35 05/24/17 22:00 73 05/24/17 20:00 35 05/24/17 20:00 81 05/24/17 20:00 100.0 81 19 140/65 (90) 92 05/24/17 19:35 94 35 05/24/17 18:00 78 05/24/17 16:30 100 35 05/24/17 16:00 79 05/24/17 16:00 98.2 79 17 141/63 (89) 100 05/24/17 16:00 35 05/24/17 14:00 76 Intake & Output 05/25/17 05/25/17 07:00 19:00 Intake Total 900 ml 931 ml Output Total 1000 ml Balance -100 ml 931 ml Intake IV Total 931 ml Other 900 ml Output Urine Total 700 ml Stool Total 300 ml Physical Exam CONSTITUTIONAL/GENERAL: This is an adequately nourished patient, on [facility] vent off all sedation. TUBES: tracheostomy to vent (CPAP), NG tube, PIV left FA, PIV right FA, catheter. Bite block in mouth. EYES: eyes closed. CARDIOVASCULAR: Regular rate and rhythm without murmurs, gallops, or rubs. RESPIRATORY/CHEST: Unlabored respirations on CPAP. Scattered rhonchi bilaterally. Thick oral secretions noted. GASTROINTESTINAL: Abdomen soft, nondistended, obese. Bowel sounds present. MUSCULOSKELETAL: Extremities edema. No mottling or clubbing. NEUROLOGICAL: Unresponsive to my voice or exam. No withdraw to pain on extremities. PSYCHIATRIC: Unresponsive. . Diagnostic Tests Laboratory Laboratory Tests Test 05/23/17 10:03 05/24/17 05:37 05/24/17 05:57 Blood Urea Nitrogen 14 MG/DL (7-18) 14 MG/DL (7-18) Creatinine 1.17 MG/DL (0.50-1.00) 1.09 MG/DL (0.50-1.00) Random Glucose 266 MG/DL (74-106) 222 MG/DL (74-106) Calcium Level 9.2 MG/DL (8.5-10.1) 9.4 MG/DL (8.5-10.1) Sodium Level 145 MEQ/L (136-145) 141 MEQ/L (136-145) Potassium Level 3.5 MEQ/L (3.5-5.1) 3.9 MEQ/L (3.5-5.1) Chloride Level 112 MEQ/L (98-107) 108 MEQ/L (98-107) Carbon Dioxide Level 26.0 MEQ/L (21.0-32.0) 26.8 MEQ/L (21.0-32.0) Anion Gap 7 MEQ/L (5-15) 6 MEQ/L (5-15) Estimat Glomerular Filtration Rate 58 ML/MIN (>89) 63 ML/MIN (>89) B-Type Natriuretic Peptide 236 PG/ML (0-100) White Blood Count 8.5 TH/MM3 (4.0-11.0) Red Blood Count 3.04 MIL/MM3 (4.00-5.30) Hemoglobin 9.2 GM/DL (11.6-15.3) Hematocrit 28.2 % (35.0-46.0) Mean Corpuscular Volume 92.8 FL (80.0-100.0) Mean Corpuscular Hemoglobin 30.3 PG (27.0-34.0) Mean Corpuscular Hemoglobin Concent 32.6 % (32.0-36.0) Red Cell Distribution Width 14.5 % (11.6-17.2) Platelet Count 259 TH/MM3 (150-450) Mean Platelet Volume 10.5 FL (7.0-11.0) Result Diagram: 05/24/17 0537 05/24/17 0557 Microbiology Microbiology Date/Time Source Procedure Growth Status 05/14/17 11:30 Blood Peripheral Aerobic Blood Culture - Final NO GROWTH IN 5 DAYS Complete 05/14/17 11:30 Blood Peripheral Anaerobic Blood Culture - Final NO GROWTH IN 5 DAYS Complete 05/15/17 00:30 Sputum Endotracheal Gram Stain - Final Complete 05/15/17 00:30 Sputum Endotracheal Sputum Culture - Final HEAVY GROWTH NORMAL RESPIRATORY JORDEN Complete 05/14/17 21:45 Urine Catheterized Urine Urine Culture - Final Lucinda Albicans Complete Imaging Last Impressions Chest X-Ray 05/20/17 0600 Signed Impressions: Service Date/Time: Saturday, May 20, 2017 04:24 - CONCLUSION: Appropriate tube positions. Clear lungs. Noé Sloan MD Abdomen Ultrasound 05/07/17 0000 Signed Impressions: Service Date/Time: Sunday, May 07, 2017 14:19 - CONCLUSION: 1. Echogenic liver compatible with fatty infiltration or hepatocellular disease. 2. Cholecystectomy Laith Coe MD Head CT 05/06/174 Signed Impressions: Service Date/Time: Sunday, May 07, 2017 03:14 - CONCLUSION: Normal examination. Noé Ybarra MD CT Angiography 05/06/17 0000 Signed Impressions: Service Date/Time: Sunday, May 07, 2017 03:21 - CONCLUSION: 1. No pulmonary embolus. 2. Bibasilar areas of consolidation or atelectasis being worse on the left. There are minimal bilateral pleural effusions. Noé Ybarra MD Procedures * 05/07/17 - Intubation * 05/07 - Bilateral femoral arterial lines and left femoral heat exchange catheter . Assessment and Plan Disease Oriented Problem List: (1) anoxic brain injury, severe encephalopathy (2) PEA cardiac arrest 05/06/17 (3) respiratory failure s/p cardiac arrest and resuscitation (4) history of CHF, ejection fraction 15-20% in 2013 (5) coronary artery disease, moderate disease on cath in 2013 (6) insulin-dependent diabetes (7) COPD, moderate (8) history of seizure disorder (9) unspecified but significant psychiatric illness, disabling (10) hyperlipidemia (11) hypertension (12) GERD (13) peripheral neuropathy Symptom Scale: (1) dyspnea 0-10 Scale: Unable to quantify (2) encephalopathy 0-10 Scale: Unable to quantify Pertinent Non-Medical Issues Psychosocial: Unmarried, 1 daughter in [place], disabled via psychiatric diagnoses for many years. Was living alone. Spiritual: Unaffiliated mormonism Legal: The patient is unmarried and has just one child, katarina Edward in [place]. The patient is very unlikely to regain capacity for decision-making, so Patty Lozano is the proxy decision-maker. Ethical issues impacting care: None. . Important Contacts Patient's daughter/HCP Cheyanne Garcia [phone] . Prognosis The patient's prognosis is extremely poor. She has underlying moderate or severe pulmonary and cardiac disease, and now has an apparent significant anoxic brain injury. . Code Status: Alternative Code (intubation only) Plan * ALTERNATE CODE, intubation only per request of daughter 05/10/17. * DECISION-MAKING: No written advanced directives. The patient is unmarried and has just one child, katarina Ham who lives in [place]. Patient is not capacitated and very unlikely to regain capacity for decision-making, According to [place] Statutes, health care proxy decision making falls to Jitendra Garcia. * GOALS: Goals remain aggressive short of alternate code status. * SYMPTOMS: No evidence of pain, dyspnea, anxiety at this time. No seizures noted. Encephalopathy: due to anoxic brain injury, seizure, no evidence of neurologic recovery. No new medication recommendations at this time. * Palliative Care will continue to follow the patient during this hospitalization. . Attestation To help prompt me to consider important information that might be impacting today's encounter and assessment, information from prior notes written by myself or my colleagues may have been "brought forward" into today's note. My signature on this note, however, is an attestation that I personally performed the exam, history, and/or decision-making noted today, and, unless otherwise indicated, the interactions with patient, family, and staff as well as the review of records all occurred today. I also attest that the listed assessment and stated plan reflect my best clinical judgment today based on the combination of historical information, prior notes, and today's exam/ interactions. When time spent is documented, it refers only to time spent today by the signer, or if indicated, combined time spent today by collaborating physician/nurse practitioner. Isadora Zhao May 25, 2017 13:25
--- NOTE | 2017-05-25 13:32 | PD.CARD.PN ---
Subjective Subjective Remarks s/p tracheotomy, unresponsive off sedation Objective Medications Current Medications Medications (Trade) Dose Ordered Sig/Scarlett Route Start Time Stop Time Status Last Admin (Tylenol) 650 mg Q6H PRN PO 05/06/17 23:30 05/17/17 19:45 (Zofran Inj) 4 mg Q6H PRN IV PUSH 05/06/17 23:30 (Albuterol Neb) 2.5 mg Q2HR NEB PRN INH 05/06/17 23:30 05/22/17 19:53 Miscellaneous Information 1 Q361D XX 05/06/17 23:30 (Chlorhexidine 2% Cloth) Taper DAILY@04 TOP 05/07/17 04:00 05/03/18 03:59 05/25/17 03:51 (Chlorhexidine 2% Cloth) 3 pack UNSCH PRN TOP 05/06/17 23:30 (Aggie-Colace) 1 tab BID PO 05/07/17 09:00 05/25/17 08:52 (Milk Of Magnesia Liq) 30 ml Q12H PRN PO 05/06/17 23:30 (Senokot) 17.2 mg Q12H PRN PO 05/06/17 23:30 (Dulcolax Supp) 10 mg DAILY PRN RECTAL 05/06/17 23:30 (Peridex 0.12% Liq) 15 ml BID@08,20 MT 05/07/17 08:00 05/25/17 08:53 (NS Flush) 2 ml BID IV FLUSH 05/07/17 09:00 05/25/17 08:52 (NS Flush) 2 ml UNSCH PRN IV FLUSH 05/07/17 04:30 (Heparin Inj) 5,000 units Q12H SQ 05/07/17 05:00 Future Hold 05/22/17 04:27 (Lacrilube Opht Oint) 1 applic Q12HR EACH EYE 05/07/17 09:00 05/25/17 08:53 (Ecotrin Ec) 81 mg DAILY PO 05/08/17 09:00 05/25/17 08:52 (Lactulose Liq) 30 ml DAILY OG-TUBE 05/07/17 09:00 05/25/17 08:51 (D50w (Vial) Inj) 50 ml UNSCH PRN IV PUSH 05/08/17 00:30 (Glucagon Inj) 1 mg UNSCH PRN OTHER 05/08/17 00:30 (NovoLOG SUPPLEMENTAL SCALE) 1 Q4H SQ 05/08/17 00:30 05/25/17 11:33 (Apresoline Inj) 20 mg Q4H PRN IV PUSH 05/13/17 11:15 05/21/17 02:57 (Norvasc) 10 mg DAILY PO 05/14/17 09:15 05/25/17 08:52 (Depakene Liq) 250 mg BID NG 05/16/17 11:00 05/25/17 08:51 Potassium Chloride/Dextrose 1,000 ml @ 70 mls/hr [id number] IV 05/17/17 23:45 05/24/17 20:57 (Free Water) 300 ml Q4HR G-TUBE 05/18/17 12:00 05/25/17 10:54 (Pepcid) 20 mg DAILY NG 05/18/17 09:00 05/25/17 08:52 (Keppra Liq) 1,000 mg Q12HR NG 05/18/17 09:00 05/25/17 08:51 (Neurontin Liq) 100 mg HS NG 05/18/17 21:00 05/24/17 20:31 (Lanoxin) 0.125 mg DAILY PO 05/20/17 09:00 05/25/17 08:52 (Coreg) 25 mg BID PO 05/19/17 21:00 05/25/17 08:51 (Trandate Inj) 10 mg Q1H PRN IV 05/19/17 13:15 (Haldol Inj) 5 mg Q4H PRN IV 05/20/17 18:45 (Roxicodone Intensol Liq) 5 mg Q4H PO 05/20/17 19:00 05/25/17 11:34 (Cardizem) 30 mg Q6HR PO 05/20/17 18:45 05/25/17 11:34 (Ddavp Inj) 2 mcg Q12HR SQ 05/21/17 21:00 05/25/17 08:51 (Altace) 2.5 mg DAILY PO 05/23/17 09:00 05/25/17 08:51 Vital Signs / I&O Vital Signs Date Time Temp Pulse Resp B/P (MAP) Pulse Ox O2 Delivery O2 Flow Rate FiO2 05/25/17 12:25 99 35 05/25/17 10:00 72 05/25/17 08:47 97 35 05/25/17 08:00 99.4 72 15 135/61 (85) 99 05/25/17 08:00 72 05/25/17 08:00 35 05/25/17 06:00 75 05/25/17 04:15 97 35 05/25/17 04:00 35 05/25/17 04:00 99.0 70 15 118/58 (78) 96 05/25/17 04:00 70 05/25/17 02:00 72 05/25/17 01:12 96 35 05/25/17 00:00 99.9 77 25 135/63 (87) 94 05/25/17 00:00 35 05/25/17 00:00 77 05/24/17 22:15 96 35 05/24/17 22:00 73 05/24/17 20:00 35 05/24/17 20:00 81 05/24/17 20:00 100.0 81 19 140/65 (90) 92 05/24/17 19:35 94 35 05/24/17 18:00 78 05/24/17 16:30 100 35 05/24/17 16:00 79 05/24/17 16:00 98.2 79 17 141/63 (89) 100 05/24/17 16:00 35 05/24/17 14:00 76 I/O 05/24/17 05/24/17 05/24/17 05/25/17 05/25/17 05/25/17 07:00 15:00 23:00 07:00 15:00 23:00 Intake Total 981 ml 900 ml 931 ml Output Total 900 ml 750 ml 1000 ml Balance 81 ml -750 ml -100 ml 931 ml Intake IV Total 931 ml Tube Feeding 81 ml Other 900 ml 900 ml Output Urine Total 700 ml 750 ml 700 ml Stool Total 200 ml 300 ml Physical Exam GENERAL: SKIN: Warm and dry. HEAD: Normocephalic. EYES: No scleral icterus. No injection or drainage. NECK: Supple, trachea midline. No JVD or lymphadenopathy. CARDIOVASCULAR: Regular rate and rhythm without murmurs, gallops, or rubs. RESPIRATORY: Breath sounds equal bilaterally. No accessory muscle use. GASTROINTESTINAL: Abdomen soft, non-tender, nondistended. MUSCULOSKELETAL: No cyanosis, or edema. BACK: Nontender without obvious deformity. No CVA tenderness. Assessment and Plan Problem List: (1) CAD (coronary artery disease) ICD Codes: I25.10 - Atherosclerotic heart disease of [place] coronary artery without angina pectoris (2) CHRONIC OBSTRUCTIVE PULMON DISEASE W ACUTE LOWER RESP INFCT ICD Codes: J44.0 - CHRONIC OBSTRUCTIVE PULMON DISEASE W ACUTE LOWER RESP INFCT Status: Acute (3) Cardiomyopathy ICD Codes: I42.9 - Cardiomyopathy Status: Acute (4) Cardiopulmonary arrest ICD Codes: I46.9 - Cardiac arrest, cause unspecified Status: Acute (5) Diabetes mellitus ICD Codes: E11.9 - Type 2 diabetes mellitus without complications Status: Acute Assessment and Plan 1.) Cardiomyopathy - euvolemic, continue coreg 25 mg bid, start altace 2.5 mg qd , kdm=032 05/23/17 2.) CAD - continue aspirin, statin held due to shock liver and elevated lfts 3.) s/p trach, awaiting termite helper care, getting peg 05/25/17 4.) PAF - continue dig, cardizem, coreg, defer ac determination to neuro Aguila Early MD May 25, 2017 13:32
--- NOTE | 2017-05-25 14:19 | PD.RAD ---
Post Procedure Progress Note Pre Procedure Diagnosis: (1) anoxic brain injury, severe encephalopathy Post Procedure Diagnosis: (1) Anoxic encephalopathy Procedure Date: May 25, 2017 Supervising Radiologist: Tyler Mcclelland Proceduralist/Assist: Tony Miller RT(R), Yahir Serrano RT(R) Anesthesia: Local, Conscious Sedation Plan of Activity Patient to Unit: ROPU Patient Condition: Good See PACS Report for procedural detail/treatment Tyler Mcclelland MD May 25, 2017 14:19
[2017-05-25] MEDS ORDERED: GLUCAGON 1 MG/ML VIAL IV ONE (14:30)
[2017-05-25] MEDS ORDERED: IOHEXOL 350 MG/ML 50 ML BTL (for RAD DIAG) G-TUBE ONE (14:33)
--- NOTE | 2017-05-25 14:48 | HHI.NPPN ---
Subjective History of Present Illness 56 year old female with cardiomyopathy COPD CAD Anoxic bran injury and develop ARF. Additional Remarks Patient remain comatose off sherry on vent Objective Data Data 05/25/17 05/26/17 19:00 07:00 Intake Total 931 ml Balance 931 ml Intake IV Total 931 ml Vital Signs Date Time Temp Pulse Resp B/P (MAP) Pulse Ox O2 Delivery O2 Flow Rate FiO2 05/25/17 12:25 99 35 05/25/17 10:00 72 05/25/17 08:47 97 35 05/25/17 08:00 99.4 72 15 135/61 (85) 99 05/25/17 08:00 72 05/25/17 08:00 35 05/25/17 06:00 75 05/25/17 04:15 97 35 05/25/17 04:00 35 05/25/17 04:00 99.0 70 15 118/58 (78) 96 05/25/17 04:00 70 05/25/17 02:00 72 05/25/17 01:12 96 35 05/25/17 00:00 99.9 77 25 135/63 (87) 94 05/25/17 00:00 35 05/25/17 00:00 77 05/24/17 22:15 96 35 05/24/17 22:00 73 05/24/17 20:00 35 05/24/17 20:00 81 05/24/17 20:00 100.0 81 19 140/65 (90) 92 05/24/17 19:35 94 35 05/24/17 18:00 78 05/24/17 16:30 100 35 05/24/17 16:00 79 05/24/17 16:00 98.2 79 17 141/63 (89) 100 05/24/17 16:00 35 -: 05/24/17 0537 05/24/17 0557 Physical Exam Neck Neck Exam: Neck Supple Pulmonary Resp Exam: Breath Sounds Equal, Rhonchi, Decreased Bases, Poor Inspiratory Effort Cardiology CV Exam: Regular Gastrointestinal/Abdomen GI Exam: Soft, Bowel Sounds Present, Distended Extremeties Extremities Exam: Moderate Edema Neurologic Neuro Exam: Unresponsive Assessment/Plan Problem List: (1) Acute renal failure ICD Codes: N17.9 - Acute kidney failure, unspecified Plan: Patient with acute renal failure cardiomyopathy CHF coronary syndrome ATN ARF/CKD stable but she has anoxic brain injury and will be on Ventilator support Her prognosis is poor due to anoxic brain injury BMP Na 141 /Cr 1.09 has DI UOP 1.4 L on DDAVP 2mcg q 12 water flushes/D5 KCL 70 cc/hr Follow the urine out put and BMP. (2) Cardiopulmonary arrest ICD Codes: I46.9 - Cardiac arrest, cause unspecified Status: Acute Plan: Critical care following (3) Cardiogenic shock ICD Codes: R57.0 - Cardiogenic shock Status: Resolved Plan: Cardiomyopathy (4) Anoxic encephalopathy ICD Codes: G93.1 - Anoxic brain damage, not elsewhere classified Status: Acute Plan: Brain injury with no recovery (5) Cardiomyopathy ICD Codes: I42.9 - Cardiomyopathy Status: Acute Plan: EF of 20% Problem Qualifiers (1) Acute renal failure: Qualified Codes: N17.0 - Acute kidney failure with tubular necrosis Apollo Hughes MD May 25, 2017 14:48
[2017-05-25 16:23] LABS: BICARBONATE 26.3 MEQ/L (21.0-32.0)
[2017-05-25 16:45] LABS: POTASSIUM 4.3 MEQ/L (3.5-5.1)
[2017-05-25] MEDS: D5W + KCL 20 MEQ INJ 1,000 ML IV SCH (17:39)
[2017-05-25] MEDS: GABAPENTIN 250 MG/5 ML UDC NG SCH (21:21)
[2017-05-26] VITALS (19 sets, daily range): BP systolic 100–146; BP diastolic 55–68; PULSE 67–96; RESP 16–19; TEMP 99.6–101.2; O2SAT 96–100
[2017-05-26] MEDS: INSULIN ASPART SUPPLEMENTAL SCALE SQ SCH ×4 (00:30→12:30)
[2017-05-26] MEDS: DILTIAZEM HCL 30 MG TAB PO SCH ×4 (01:54→17:00)
[2017-05-26] MEDS: oxyCODONE HCL ORAL CONC 5 MG/0.25 ML SYRINGE PO SCH ×6 (01:55→19:55)
[2017-05-26] MEDS: CHLORHEXIDINE GLUCONATE 2 % 1 PACK (2 CLOTHS) TOP SCH (03:28)
[2017-05-26] MEDS: FREE WATER G-TUBE SCH ×6 (03:28→19:49)
[2017-05-26] MEDS: D5W + KCL 20 MEQ INJ 1,000 ML IV SCH (05:17)
[2017-05-26 07:16] LABS: BICARBONATE 23.1 MEQ/L (21.0-32.0); POTASSIUM 4.2 MEQ/L (3.5-5.1)
--- NOTE | 2017-05-26 07:37 | HHI.CCPN ---
Subjective Remarks/Hospital Course 56-year-old female with past medical history of hypertension, chronic systolic heart failure, diabetes, COPD bipolar disorder, seizure disorder who presented to [facility] emergency department via [facility] following cardiac arrest. [facility] was originally called for shortness of breath and when they arrived patient was unresponsive and in PEA. Combitube was placed. CPR was initiated and patient was administered epinephrine 4, 1 amp bicarbonate, Narcan 2 mg prior to arrival via left tibial I/O. Blood glucose was 334. Exact duration of prehospital CPR is unclear. Combitube was removed and she was intubated upon arrival. Patient had ROSC 5 minutes after arrival. She received additional epinephrine 2 in the ED. She also received 1 L normal saline bolus, vancomycin, Zosyn in the ED. Critical care medicine is consulted for admission. EKG has no acute ischemia. SUBJ 05/07: Intubated sedated neuromuscularly paralyzed. Induced hypothermia initiated at 7 AM, 2-D echo shows EF 25-30%, mild to moderate MR. Serial troponins negative 05/08: Remains neuromuscularly paralyzed. Hypothermia will be completed by the known and rewarming was started. Remains off inotropes and pressors 05/09: Hypothermia protocol completed, placed overnight on Versed also in addition to propofol and fentanyl for tachycardia and asynchrony. Currently patient while on sedation do not open eyes with very slight withdrawal to pain 05/10: Developed Afib with RVR yesterday with HR in 200's DC cardioverted at night by Dr. Chu. Placed back on Versed. RN reports paroxysmal A fib. EEG pending at this time for subclinical sz. EEG 05/07 burst suppression pattern. Neuro prognosis poor 05/11: No neuro improvement. Creat worsening, nephrology consulted. EEG severe encephalopathy consistent with anoxic injury. Palliative care is following 05/12: There had been no improvement in neuro status after completion of code cool approximately 4 days ago. Patient has not shown not seen any signs of improvement. Palliative care met with family. Patient is developing multiorgan dysfunction syndrome. Daughter wants withdrawal of life support but wants to wait until some other family members can visit from [place] 05/13: No meaningful recovery yet. Opens eyes partially to pain. Weakly withdraws all extremities to pain. UO 1.8L in 24 hours. Family considering withdrawal of life support today, considering comorbidities and poor neuro recovery after cooling 05/14: Eyes are spontaneously open but with upward gaze. No tracking no response to threat. Withdraws bilateral upper extremity to pain. Had been off sedation more than 4 days 05/15: Neuro exam remains unchanged, even less eye-opening and withdrawal. Fever up to 103.5. Pancultured. Continue on vancomycin and Zosyn until cultures are back. 05/16: no improvements or changes to mental status. persistent encephalopathy. poor prognosis. family wants to wait until other family can be present. palliative care clarifying goals. 05/17: no changes to poor mental status. still awaiting family. hypernatremia worsening. nephrology following. Cr improving though; ahsan post-ATN diuresis. 05/18: Tmax 98.9. Positive gag. Positive corneal reflex. Blinks. Does not withdraw to pain. Went to A. fib with RVR the today requiring synchronous cardioversion with 200 J currently in sinus tachycardia. Given digoxin 0.5 mg IV now. 05/19: Afebrile. Has not brain injury. Daughter yesterday she says she was the patient trach and PEG. Started on desmopressin per nephrology yesterday. Sodium still remains elevated. 05/20: no improvements in severe encephalopathy. Daughter continues to want aggressive treatment. will proceed with trach and PEG, and pursue long-term placement. 05/21: no improvements in neuro exam. s/p trach yesterday. GI consulted for PEG. needs placement. sodium downtrending and improving. 05/22: no improvements or changes. on SBT this AM on my eval. persistently encephalopathic. needs placement. Sodium derangements slowly improving. 05/23: PEG planned for today. weaning vent slowly. metabolic derangements improving. Cr downtrending. awaiting placement. 05/24: failed SBT yesterday for tachypnea. failed again today for persistent tachypnea and low tidal volumes. continue trying daily sbt's. 05/25: again attempted to wean pressure support and failed weaning attempt. no other acute issues. no indication for inpatient admission at this time. Needs LTAC for aggressive pulmonary rehab and weaning, but insurance denied. Subjective 05/26: failed weaning yesterday for weakness, tachypnea. new fever today. will obtain u/a, CXR, cultures. nontoxic appearing. will also draw procalcitonin level. nontoxic appearing and no other change in vital signs. PEG placed yesterday. Objective Vital Signs Date Time Temp Pulse Resp B/P (MAP) Pulse Ox O2 Delivery O2 Flow Rate FiO2 05/26/17 06:00 90 05/26/17 04:50 98 35 05/26/17 04:00 99.8 19 130/66 (87) Intake and Output 05/26/17 05/26/17 05/27/17 08:00 16:00 00:00 Intake Total 950 ml Output Total 875 ml Balance 75 ml Result Diagram: 05/24/17 0537 05/26/17 0611 Imaging Last Impressions Chest X-Ray 05/18/17 0000 Signed Impressions: Service Date/Time: Thursday, May 18, 2017 08:14 - CONCLUSION: ET tube tip that the upper thoracic level. Increasing left lower lung consolidation. Obi Barnes MD Abdomen Ultrasound 05/07/17 0000 Signed Impressions: Service Date/Time: Sunday, May 07, 2017 14:19 - CONCLUSION: 1. Echogenic liver compatible with fatty infiltration or hepatocellular disease. 2. Cholecystectomy Laith Coe MD Head CT [id number]/06/172123 Signed Impressions: Service Date/Time: Sunday, May 07, 2017 03:14 - CONCLUSION: Normal examination. Noé Ybarra MD CT Angiography 05/06/17 0000 Signed Impressions: Service Date/Time: Sunday, May 07, 2017 03:21 - CONCLUSION: 1. No pulmonary embolus. 2. Bibasilar areas of consolidation or atelectasis being worse on the left. There are minimal bilateral pleural effusions. Noé Ybarra MD Objective Remarks GENERAL: 56-year-old female who is trached, unresponsive. SKIN: Warm and dry. Well perfused HEAD: Atraumatic. Normocephalic. EYES: Bilateral exophthalmus. Pupils equal and round, reactive around 4 mm bilaterally. Positive corneal reflex ENT: No nasal bleeding or discharge. fresh tracheostomy in place without evidence of bleeding. NECK: Trachea midline. No JVD appreciated. No meningismus CARDIOVASCULAR: normal rate, regular rhythm. sinus by tele. RESPIRATORY: PSV 10/5. fio2 35%, tachypneic. equal chest rise. GASTROINTESTINAL: Abdomen protuberant soft. No appreciable tenderness , rebound or guarding. : Benoit catheter is in place MUSCULOSKELETAL: Extremities without significant peripheral edema NEUROLOGICAL: Blinks.. Minimal partial eye opening to pain. Slight withdrawal to pain in all 4 ext upper extremities more than lower. Pupils as above. Positive gag. A/P Problem List: (1) Cardiac arrest ICD Code: I46.9 - Cardiac arrest, cause unspecified Status: Resolved (2) Anoxic-ischemic encephalopathy ICD Code: G93.1 - Anoxic brain damage, not elsewhere classified; I67.82 - Cerebral ischemia Status: Chronic (3) Chronic systolic heart failure ICD Code: I50.22 - Chronic systolic (congestive) heart failure Status: Chronic (4) Exophthalmos of both eyes ICD Code: H05.20 - Unspecified exophthalmos Status: Chronic (5) HTN (hypertension) ICD Code: I10 - Essential (primary) hypertension Status: Chronic (6) HLD (hyperlipidemia) ICD Code: E78.5 - Hyperlipidemia, unspecified Status: Chronic (7) Cardiogenic shock ICD Code: R57.0 - Cardiogenic shock Status: Resolved (8) Acute respiratory failure with hypercapnia ICD Code: J96.02 - Acute respiratory failure with hypercapnia Status: Chronic (9) Obesity (BMI 30-39.9) ICD Code: E66.9 - Obesity, unspecified Status: Chronic (10) CHF (congestive heart failure) ICD Code: I50.9 - CHF (congestive heart failure) Status: Resolved (11) Bipolar disorder ICD Code: F31.9 - Bipolar affective disorder Status: Chronic (12) COPD (chronic obstructive pulmonary disease) ICD Code: J44.9 - Chronic obstructive pulmonary disease Status: Chronic (13) Tobacco abuse ICD Code: Z72.0 - Tobacco use Status: Chronic Assessment and Plan Assessment: 56yF with severe hypoxic-ischemic encephalopathy. poor prognosis. family wants aggressive care. s/p trach and PEG. we have been attempting to wean pressure on CPAP but unable given poor tidal volumes and tachypnea. will need long-term acute care facility to facilitate pulmonary rehab for weaning. stable to leave inpatient setting at this point if it weren't for failure to wean after multiple days of attempts (initial CPAP trials started 05/22). New fever will be worked up with u/a, CXR, cultures. still remains non-toxic appearing and could be secondary to stress response from procedure yesterday. risk/benefit, will hold off on abx at this time until additional data. still stable for transfer to LTAC, but no approval from funding. NEURO/PSYCH: Acute anoxic encephalopathy, severe Bipolar disorder Exophthalmus Status post completion of induced therapeutic hypothermia. initiated at 0700 , completed 05/08/17. Off sedation more than 7 days No neurologic improvement yet, prognosis poor. Neurology Dr. Solitario. CT brain - negative. Depakote level. 48. Was on Depakote for bipolar. restarted Depakote at 250 twice a day 500 daily at home Lactulose 30 daily. Ammonia level down to 31. Neg urine drug screen, APAP, ASA level. Resumed gabapentin 100 milligrams at night. Holding bupropion 150 mg daily EEG shows severe encephalopathy, burst suppression pattern. Repeat EEG severe encephalopathy RESP: Acute hypercapnic respiratory failure COPD Tobacco abuse Ventilator bundle. Albuterol/ipratropium aerosols q6 hours. Albuterol q2 hours prn. No Wheezing s/p perc trach 05/[address] Melvin and Mathieu. daily weaning attempts. continues to fail. needs LTAC for aggressive pulmonary rehab. CV: s/p PEA cardiac arrest Post cardiac arrest syndrome with shock (resolved) Afib with RVR - resolved. Chronic systolic heart failure with ejection fraction 15-20% (25-30 on echo) Nonobstructive Coronary artery disease Essential Hypertension, uncontrolled Hyperlipidemia Holding valsartan 160 mg due to acute kidney injury. Carvedilol 12.5 mg twice a day increased to 25 mg twice a day and amlodipine 10 mg daily. use IV Hydralazine and labetalol PRN for SBP >170. DCCV for Afib RVR with HR 200/min. 2. Second time 05/18 Continue Cardizem for paroxysmal A fib and digoxin 0.125 mg daily EKG normal sinus rhythm rate of 99. No apparent acute ischemia. Follow-up serial EKGs and cardiac markers-negative. 2-D echo EF 25-30%. Cardiology Dr. Early Etiology of cardiac arrest unclear. Most likely due to hypercapnia and respiratory acidosis Continue aspirin 81 mg daily. Holding statin simvastatin 40 mg daily due to elevated LFTs. PO cardizem. GI: GERD Transaminitis, probable ischemic hepatopathy. Orogastric tube. RUQ us-fatty liver, hepatitis panel negative Tube feeds with Glucerna currently at 45 cc an hour Famotidine for GI prophylaxis Docusate sodium/senna twice a day for bowel regimen s/p PEG placement. restart tube feeds. FEN/RENAL: MARQUEZ Lactic acidemia Hypernatremia - slowly improving but persistent. Benoit in place. Monitor intake and output. Monitor electrolytes and replace as indicated. Hold home NSAID's. Creat improved today Nephrology consult for worsening creatinine. Dr. Hughes following. Nonoliguric renal failure ID: High fever, sepsis Candiduria Bacteremia with strep viridans, Coag neg staph, pleomorphic GPR New fever s/p full course of Vanc/Zosyn for strep bacteremia (2 weeks of vancomycin for GPC bacteremia). d/c and monitor clinically. Blood cultures 05/06 with strep radius, coag negative staph and pleomorphic gram -positive rods. Urine culture 05/03 with Lucinda albicans redraw cultures. cbc, bmp, cxr, ua. HEME: No acute hematologic issues. ENDO: Diabetes mellitus with acute hyperglycemia Hold metformin 1000 mg twice a day, glipizide 5 mg twice a day, insulin glargine 24 units daily. SSI Novulog every 4 hours, increase to high scale. Thyroid studies-essentially euthyroid PROPH: Sq heparin for DVT prophylaxis. Famotidine for stress ulcer prophylaxis and history of GERD ACCESS: Peripheral IV. Central line if indicated. ALT CODE. Palliative care following. Prognosis appears very poor. Problem Qualifiers (1) HTN (hypertension): Qualified Codes: I10 - Essential (primary) hypertension Luis Manuel Melvin MD May 26, 2017 07:37
--- NOTE | 2017-05-26 07:41 | RADRPT ---
EXAM DATE/TIME: 05/25/2017 13:18 [facility] COMPARISON: No previous studies available for comparison. INDICATIONS : Patient presents post cardiac arrest in need of gastrostomy tube placement for nutrition. MEDICAL HISTORY : COPD Diabetes Hypertension Chronic systolic heart failure with an ejection fraction of 15-20% GERD Bipolar disorder Hyperlipidemia Allergic rhinitis Peripheral neuropathy SURGICAL HISTORY : Cholecystectomy Bilateral tubal ligation Cardiac catheterization 03/27/14 ENCOUNTER: Initial ACUITY: 2 weeks PAIN SCORE: Nonresponsive. LOCATION: N/A FLUORO TIME: 2.1 minutes IMAGE SERIES: 0 SEDATION TIME: 30 minutes CONTRAST: 20 cc Omnipaque (iohexol) 350 MEDICATION(S): 1.) 100 mcg fentanyl (Sublimaze) IV DEVICE(S): 1.) 18 Fr gastrostomy tube PROCEDURE : 1. Limited abdominal ultrasound. 2. Fluoroscopically guided gastrojejunostomy tube placement. 3. Conscious sedation with continuous EKG and oximetry monitoring. The risks, benefits and alternatives to the procedure were explained and verbal and written consent w as obtained. The site was prepped in sterile fashion. Full sterile technique was used, including ca p, mask, sterile gloves and gown and a large sterile sheet. Hand hygiene and 2% chlorhexidine and/or betadine/alcohol prep was utilized per protocol for cutaneous antisepsis. The skin and subcutaneous tissues were infiltrated with local anesthetic solution. Sterile gel and sterile probe cover were utilized for ultrasound guidance. Ultrasound was used to kenyon the position of the liver. 1 mg of Glucagon was administered. The stoma ch was insufflated with room air using. Three percutaneous fasteners were placed to secure the anteri or gastric wall. A small incision was made between the fasteners. The stomach was accessed with an 18 gauge needle. A n 0.035 wire was advanced into the small bowel. The tract was dilated. The gastrojejunostomy tube w as introduced through a peel-away sheath. The position was confirmed with an injection of contrast in both the gastric and jejunal lumens. Conscious sedation was performed with the prescribed dosages and duration as above in the presence of an independent trained radiology nurse to assist in the monitoring of the patient. EKG and oximetry remained stable throughout the procedure. The patient tolerated the procedure well and there were n o complications. The patient was sent to post anesthesia recovery in stable condition. CONCLUSION: Uncomplicated gastrojejunostomy tube placement as above. Tyler Mcclelland MD on May 26, 2017 at 7:39 Board Certified Radiologist. This report was verified electronically.
[2017-05-26] MEDS: LACTULOSE SYRUP 20 GM/30 ML CUP OG-TUBE SCH (08:25)
[2017-05-26] MEDS: CARVEDILOL 12.5 MG TAB PO SCH ×2 (08:25→19:54)
[2017-05-26] MEDS: ASPIRIN EC 81 MG TABEC PO SCH (08:25)
[2017-05-26] MEDS: RAMIPRIL 2.5 MG CAP PO SCH (08:25)
[2017-05-26] MEDS: FAMOTIDINE 20 MG TAB NG SCH (08:25)
[2017-05-26] MEDS: CHLORHEXIDINE 0.12% (ORAL KIT) 15 ML CUP MT SCH ×2 (08:26→19:48)
[2017-05-26] MEDS: DOCUSATE SODIUM 50 MG/SENNA 8.6 MG TAB PO SCH ×2 (08:26→20:04)
[2017-05-26] MEDS: VALPROIC ACID SYRUP 250 MG/5 ML UDC NG SCH ×2 (08:26→19:54)
[2017-05-26] MEDS: levETIRAcetam 500 MG/5 ML UDC NG SCH ×2 (08:26→21:30)
[2017-05-26] MEDS: DIGOXIN 0.125 MG TAB PO SCH (08:26)
[2017-05-26] MEDS: SODIUM CHLORIDE 0.9% FLUSH 10 ML FLUSH IV FLUSH SCH ×2 (08:26→20:06)
[2017-05-26] MEDS: ARTIFICIAL TEARS OPTH OINT 3.5 APPLIC/3.5 GM TUBO EACH EYE SCH ×2 (08:27→19:55)
[2017-05-26] MEDS: DESMOPRESSIN ACETATE 4 MCG/ML VIAL SQ SCH (08:27)
--- NOTE | 2017-05-26 11:50 | PD.CARD.PN ---
Subjective Subjective Remarks s/p tracheotomy, unresponsive off sedation Objective Medications Current Medications Medications (Trade) Dose Ordered Sig/Scarlett Route Start Time Stop Time Status Last Admin (Tylenol) 650 mg Q6H PRN PO 05/06/17 23:30 05/17/17 19:45 (Zofran Inj) 4 mg Q6H PRN IV PUSH 05/06/17 23:30 (Albuterol Neb) 2.5 mg Q2HR NEB PRN INH 05/06/17 23:30 05/22/17 19:53 Miscellaneous Information 1 Q361D XX 05/06/17 23:30 (Chlorhexidine 2% Cloth) 3 pack Taper DAILY@04 TOP 05/07/17 04:00 05/03/18 03:59 05/26/17 03:28 (Chlorhexidine 2% Cloth) 3 pack UNSCH PRN TOP 05/06/17 23:30 (Aggie-Colace) 1 tab BID PO 05/07/17 09:00 05/26/17 08:26 (Milk Of Magnesia Liq) 30 ml Q12H PRN PO 05/06/17 23:30 (Senokot) 17.2 mg Q12H PRN PO 05/06/17 23:30 (Dulcolax Supp) 10 mg DAILY PRN RECTAL 05/06/17 23:30 (Peridex 0.12% Liq) 15 ml BID@08,20 MT 05/07/17 08:00 05/26/17 08:26 (NS Flush) 2 ml BID IV FLUSH 05/07/17 09:00 05/26/17 08:26 (NS Flush) 2 ml UNSCH PRN IV FLUSH 05/07/17 04:30 (Heparin Inj) 5,000 units Q12H SQ 05/07/17 05:00 Future Hold 05/22/17 04:27 (Lacrilube Opht Oint) 1 applic Q12HR EACH EYE 05/07/17 09:00 05/26/17 08:27 (Ecotrin Ec) 81 mg DAILY PO 05/08/17 09:00 05/26/17 08:25 (Lactulose Liq) 30 ml DAILY OG-TUBE 05/07/17 09:00 05/26/17 08:25 (D50w (Vial) Inj) 50 ml UNSCH PRN IV PUSH 05/08/17 00:30 (Glucagon Inj) 1 mg UNSCH PRN OTHER 05/08/17 00:30 (NovoLOG SUPPLEMENTAL SCALE) 1 Q4H SQ 05/08/17 00:30 05/26/17 08:27 (Apresoline Inj) 20 mg Q4H PRN IV PUSH 05/13/17 11:15 05/21/17 02:57 (Norvasc) 10 mg DAILY PO 05/14/17 09:15 05/26/17 08:25 (Depakene Liq) 250 mg BID NG 05/16/17 11:00 05/26/17 08:26 Potassium Chloride/Dextrose 1,000 ml @ 70 mls/hr [id number] IV 05/17/17 23:45 05/26/17 05:17 (Free Water) 300 ml Q4HR G-TUBE 05/18/17 12:00 05/26/17 11:10 (Pepcid) 20 mg DAILY NG 05/18/17 09:00 05/26/17 08:25 (Keppra Liq) 1,000 mg Q12HR NG 05/18/17 09:00 05/26/17 08:26 (Neurontin Liq) 100 mg HS NG 05/18/17 21:00 05/25/17 21:21 (Lanoxin) 0.125 mg DAILY PO 05/20/17 09:00 05/26/17 08:26 (Coreg) 25 mg BID PO 05/19/17 21:00 05/26/17 08:25 (Trandate Inj) 10 mg Q1H PRN IV 05/19/17 13:15 (Haldol Inj) 5 mg Q4H PRN IV 05/20/17 18:45 (Roxicodone Intensol Liq) 5 mg Q4H PO 05/20/17 19:00 05/26/17 11:10 (Cardizem) 30 mg Q6HR PO 05/20/17 18:45 05/26/17 11:10 (Ddavp Inj) 2 mcg Q12HR SQ 05/21/17 21:00 05/26/17 08:27 (Altace) 2.5 mg DAILY PO 05/23/17 09:00 05/26/17 08:25 Vital Signs / I&O Vital Signs Date Time Temp Pulse Resp B/P (MAP) Pulse Ox O2 Delivery O2 Flow Rate FiO2 05/26/17 10:00 77 05/26/17 08:00 86 05/26/17 08:00 35 05/26/17 08:00 101.2 86 18 136/64 (88) 100 05/26/17 07:45 100 35 05/26/17 06:00 90 05/26/17 04:50 98 35 05/26/17 04:00 84 05/26/17 04:00 35 05/26/17 04:00 99.8 84 19 130/66 (87) 97 05/26/17 02:00 96 05/26/17 00:57 99 35 05/26/17 00:00 91 05/26/17 00:00 35 05/26/17 00:00 99.9 91 18 142/63 (89) 96 05/25/17 22:00 87 05/25/17 21:20 92 40 05/25/17 20:00 81 05/25/17 20:00 35 05/25/17 20:00 99.7 81 16 154/71 (98) 94 05/25/17 18:00 77 05/25/17 16:00 35 05/25/17 16:00 71 05/25/17 16:00 99.6 71 14 133/63 (86) 98 05/25/17 15:56 98 35 05/25/17 14:00 63 05/25/17 13:00 100 100 05/25/17 12:25 99 35 05/25/17 12:00 99.1 70 16 133/61 (85) 98 05/25/17 12:00 70 05/25/17 12:00 35 I/O 05/25/17 05/25/17 05/25/17 05/26/17 05/26/17 05/26/17 07:00 15:00 23:00 07:00 15:00 23:00 Intake Total 900 ml 931 ml 1088 ml 1772 ml Output Total 1000 ml 800 ml 875 ml Balance -100 ml 931 ml 288 ml 897 ml Intake IV Total 931 ml 1088 ml 822 ml Other 900 ml 950 ml Output Urine Total 700 ml 600 ml 475 ml Stool Total 300 ml 200 ml 400 ml Physical Exam GENERAL: SKIN: Warm and dry. HEAD: Normocephalic. EYES: No scleral icterus. No injection or drainage. NECK: Supple, trachea midline. No JVD or lymphadenopathy. CARDIOVASCULAR: Regular rate and rhythm without murmurs, gallops, or rubs. RESPIRATORY: Breath sounds equal bilaterally. No accessory muscle use. GASTROINTESTINAL: Abdomen soft, non-tender, nondistended. MUSCULOSKELETAL: No cyanosis, or edema. BACK: Nontender without obvious deformity. No CVA tenderness. Laboratory Laboratory Tests Test 05/25/17 15:01 05/26/17 06:11 Blood Urea Nitrogen 12 MG/DL 12 MG/DL Creatinine 0.91 MG/DL 0.98 MG/DL Random Glucose 233 MG/DL 249 MG/DL Calcium Level 9.2 MG/DL 8.9 MG/DL Sodium Level 138 MEQ/L 138 MEQ/L Potassium Level 4.3 MEQ/L 4.2 MEQ/L Chloride Level 103 MEQ/L 105 MEQ/L Carbon Dioxide Level 26.3 MEQ/L 23.1 MEQ/L Anion Gap 9 MEQ/L 10 MEQ/L Estimat Glomerular Filtration Rate 77 ML/MIN 71 ML/MIN Assessment and Plan Problem List: (1) CAD (coronary artery disease) ICD Codes: I25.10 - Atherosclerotic heart disease of [place] coronary artery without angina pectoris (2) CHRONIC OBSTRUCTIVE PULMON DISEASE W ACUTE LOWER RESP INFCT ICD Codes: J44.0 - CHRONIC OBSTRUCTIVE PULMON DISEASE W ACUTE LOWER RESP INFCT Status: Acute (3) Cardiomyopathy ICD Codes: I42.9 - Cardiomyopathy Status: Acute (4) Cardiopulmonary arrest ICD Codes: I46.9 - Cardiac arrest, cause unspecified Status: Acute (5) Diabetes mellitus ICD Codes: E11.9 - Type 2 diabetes mellitus without complications Status: Acute Assessment and Plan 1.) Cardiomyopathy - euvolemic, continue coreg 25 mg bid, start altace 2.5 mg qd , are=070 05/23/17 2.) CAD - continue aspirin, statin held due to shock liver and elevated lfts 3.) s/p trach, awaiting custodial care, s/p peg 05/25/17 4.) PAF - continue dig, cardizem, coreg, defer ac determination to neuro Aguila Early MD May 26, 2017 11:50
--- NOTE | 2017-05-26 12:29 | HHI.NPPN ---
Subjective History of Present Illness 56 year old female with cardiomyopathy COPD CAD Anoxic bran injury and develop ARF. Additional Remarks Patient remain comatose on vent Objective Data Data Vital Signs Date Time Temp Pulse Resp B/P (MAP) Pulse Ox O2 Delivery O2 Flow Rate FiO2 05/26/17 10:00 77 05/26/17 08:00 86 05/26/17 08:00 35 05/26/17 08:00 101.2 86 18 136/64 (88) 100 05/26/17 07:45 100 35 05/26/17 06:00 90 05/26/17 04:50 98 35 05/26/17 04:00 84 05/26/17 04:00 35 05/26/17 04:00 99.8 84 19 130/66 (87) 97 05/26/17 02:00 96 05/26/17 00:57 99 35 05/26/17 00:00 91 05/26/17 00:00 35 05/26/17 00:00 99.9 91 18 142/63 (89) 96 05/25/17 22:00 87 05/25/17 21:20 92 40 05/25/17 20:00 81 05/25/17 20:00 35 05/25/17 20:00 99.7 81 16 154/71 (98) 94 05/25/17 18:00 77 05/25/17 16:00 35 05/25/17 16:00 71 05/25/17 16:00 99.6 71 14 133/63 (86) 98 05/25/17 15:56 98 35 05/25/17 14:00 63 05/25/17 13:00 100 100 -: 05/24/17 0537 05/26/17 0611 Physical Exam Neck Neck Exam: Neck Supple Pulmonary Resp Exam: Breath Sounds Equal, Rhonchi, Decreased Bases, Poor Inspiratory Effort Cardiology CV Exam: Regular Gastrointestinal/Abdomen GI Exam: Soft, Bowel Sounds Present, Distended Extremeties Extremities Exam: Moderate Edema Neurologic Neuro Exam: Unresponsive Assessment/Plan Problem List: (1) Acute renal failure ICD Codes: N17.9 - Acute kidney failure, unspecified Plan: Patient with acute renal failure cardiomyopathy CHF coronary syndrome ATN ARF/CKD stable but she has anoxic brain injury and will be on Ventilator support Her prognosis is poor due to anoxic brain injury BMP Na 138 /Cr 0.98 has DI resolved ? UOP 1 L on DDAVP 2mcg q 12 will stop as observe water flushes/D5 KCL 70 cc/hr Follow the urine out put and BMP. (2) Cardiopulmonary arrest ICD Codes: I46.9 - Cardiac arrest, cause unspecified Status: Acute Plan: Critical care following (3) Cardiogenic shock ICD Codes: R57.0 - Cardiogenic shock Status: Resolved Plan: Cardiomyopathy (4) Anoxic encephalopathy ICD Codes: G93.1 - Anoxic brain damage, not elsewhere classified Status: Acute Plan: Brain injury with no recovery (5) Cardiomyopathy ICD Codes: I42.9 - Cardiomyopathy Status: Acute Plan: EF of 20% Problem Qualifiers (1) Acute renal failure: Qualified Codes: N17.0 - Acute kidney failure with tubular necrosis Apollo Hughes MD May 26, 2017 12:29
[2017-05-26] MEDS ORDERED: DEXTROSE 50% IN WATER 50 ML VIAL(D50) IV PUSH PRN (13:15)
--- NOTE | 2017-05-26 14:10 | RADRPT ---
EXAM DATE/TIME: 05/26/2017 13:34 [facility] COMPARISON: CHEST SINGLE AP, May 20, 2017, 16:51. INDICATIONS : Fever. MEDICAL HISTORY : Diabetes mellitus type II. Hypertension hyperlipidemia SURGICAL HISTORY : None. ENCOUNTER: Initial ACUITY: 3 weeks PAIN SCORE: Non-responsive. LOCATION: Bilateral chest FINDINGS: The heart is enlarged. The tracheostomy tube is noted in good position 3 cm above the jayson. The p ulmonary vascular pattern is normal. The lungs are clear. CONCLUSION: 1. Cardiomegaly. 2. No acute focal pulmonary infiltrate or pulmonary vascular congestion. David Ramirez MD on May 26, 2017 at 14:04 Board Certified Radiologist. This report was verified electronically.
[2017-05-26] MEDS: INSULIN NovoLIN REGULAR SUPPLEMENTAL SCALE SQ SCH ×2 (16:00→20:00)
[2017-05-26 16:54] LABS: HEMATOCRIT 27.2 % (35.0-46.0); MEAN CELL VOLUME 92.6 FL (80.0-100.0); MEAN CORPUSCULAR HEMOGLOBIN 30.5 PG (27.0-34.0); PLATELET COUNT 333 TH/MM3 (150-450); RED BLOOD COUNT 2.94 MIL/MM3 (4.00-5.30); RED CELL DISTRIBUTION WIDTH 14.7 % (11.6-17.2); WHITE BLOOD COUNT 13.1 TH/MM3 (4.0-11.0)
[2017-05-26 16:59] LABS: REVIEW FLAG FINAL
[2017-05-26 17:00] LABS: BICARBONATE 25.9 MEQ/L (21.0-32.0); POTASSIUM 4.2 MEQ/L (3.5-5.1)
[2017-05-26 19:22] LABS: BLOOD, URINE LARGE (NEG); GLUCOSE,URINE 300 mg/dL (NEG); KETONE, URINE 10 mg/dL (NEG); NITRITE,URINE NEG (NEG); URINE COLOR YELLOW (YELLW/STRAW)
[2017-05-26 19:25] LABS: COMMENT (UR) CATH-CULTURE IND; CULTURE IF INDICATED CATH CULTURE IND
[2017-05-26] MEDS: GABAPENTIN 250 MG/5 ML UDC NG SCH (21:31)
[2017-05-26] MEDS: RESP: ALBUTEROL 2.5 MG/3 ML NEB (PRN) INH (21:37)
[2017-05-27] VITALS (24 sets, daily range): BP systolic 103–160; BP diastolic 54–72; PULSE 66–76; RESP 15–20; TEMP 99–99.8; O2SAT 95–100
[2017-05-27] MEDS: DILTIAZEM HCL 30 MG TAB PO SCH ×5 (00:02→22:59)
[2017-05-27] MEDS: oxyCODONE HCL ORAL CONC 5 MG/0.25 ML SYRINGE PO SCH ×8 (00:03→22:59)
[2017-05-27] MEDS: CHLORHEXIDINE GLUCONATE 2 % 1 PACK (2 CLOTHS) TOP SCH (03:02)
[2017-05-27] MEDS: FREE WATER G-TUBE SCH ×7 (03:58→22:59)
[2017-05-27] MEDS: INSULIN NovoLIN REGULAR SUPPLEMENTAL SCALE SQ SCH ×7 (04:00→23:14)
[2017-05-27] MEDS: CHLORHEXIDINE 0.12% (ORAL KIT) 15 ML CUP MT SCH ×2 (08:02→19:26)
[2017-05-27] MEDS: levETIRAcetam 500 MG/5 ML UDC NG SCH ×2 (08:02→19:25)
[2017-05-27] MEDS: RAMIPRIL 2.5 MG CAP PO SCH (08:03)
[2017-05-27] MEDS: VALPROIC ACID SYRUP 250 MG/5 ML UDC NG SCH ×2 (08:03→19:25)
[2017-05-27] MEDS: DIGOXIN 0.125 MG TAB PO SCH (08:03)
[2017-05-27] MEDS: CARVEDILOL 12.5 MG TAB PO SCH ×2 (08:03→19:27)
[2017-05-27] MEDS: DOCUSATE SODIUM 50 MG/SENNA 8.6 MG TAB PO SCH ×2 (08:03→19:30)
[2017-05-27] MEDS: ASPIRIN EC 81 MG TABEC PO SCH (08:03)
[2017-05-27] MEDS: LACTULOSE SYRUP 20 GM/30 ML CUP OG-TUBE SCH (08:03)
[2017-05-27] MEDS: FAMOTIDINE 20 MG TAB NG SCH (08:04)
[2017-05-27] MEDS: SODIUM CHLORIDE 0.9% FLUSH 10 ML FLUSH IV FLUSH SCH ×2 (08:16→19:25)
[2017-05-27] MEDS: ARTIFICIAL TEARS OPTH OINT 3.5 APPLIC/3.5 GM TUBO EACH EYE SCH ×2 (09:00→19:28)
[2017-05-27] MEDS: D5W + KCL 20 MEQ INJ 1,000 ML IV SCH ×3 (09:02→23:36)
--- NOTE | 2017-05-27 09:11 | PD.CARD.PN ---
Subjective Subjective Remarks s/p tracheotomy, unresponsive off sedation Objective Medications Current Medications Medications (Trade) Dose Ordered Sig/Scarlett Route Start Time Stop Time Status Last Admin (Tylenol) 650 mg Q6H PRN PO 05/06/17 23:30 05/17/17 19:45 (Zofran Inj) 4 mg Q6H PRN IV PUSH 05/06/17 23:30 (Albuterol Neb) 2.5 mg Q2HR NEB PRN INH 05/06/17 23:30 05/26/17 21:37 Miscellaneous Information 1 Q361D XX 05/06/17 23:30 (Chlorhexidine 2% Cloth) 3 pack Taper DAILY@04 TOP 05/07/17 04:00 05/03/18 03:59 05/26/17 03:28 (Chlorhexidine 2% Cloth) 3 pack UNSCH PRN TOP 05/06/17 23:30 (Aggie-Colace) 1 tab BID PO 05/07/17 09:00 05/27/17 08:03 (Milk Of Magnesia Liq) 30 ml Q12H PRN PO 05/06/17 23:30 (Senokot) 17.2 mg Q12H PRN PO 05/06/17 23:30 (Dulcolax Supp) 10 mg DAILY PRN RECTAL 05/06/17 23:30 (Peridex 0.12% Liq) 15 ml BID@08,20 MT 05/07/17 08:00 05/27/17 08:02 (NS Flush) 2 ml BID IV FLUSH 05/07/17 09:00 05/27/17 08:16 (NS Flush) 2 ml UNSCH PRN IV FLUSH 05/07/17 04:30 (Heparin Inj) 5,000 units Q12H SQ 05/07/17 05:00 Future Hold 05/22/17 04:27 (Lacrilube Opht Oint) 1 applic Q12HR EACH EYE 05/07/17 09:00 05/26/17 19:55 (Ecotrin Ec) 81 mg DAILY PO 05/08/17 09:00 05/27/17 08:03 (Lactulose Liq) 30 ml DAILY OG-TUBE 05/07/17 09:00 05/27/17 08:03 (Glucagon Inj) 1 mg UNSCH PRN OTHER 05/08/17 00:30 (Apresoline Inj) 20 mg Q4H PRN IV PUSH 05/13/17 11:15 05/21/17 02:57 (Norvasc) 10 mg DAILY PO 05/14/17 09:15 05/27/17 08:03 (Depakene Liq) 250 mg BID NG 05/16/17 11:00 05/27/17 08:03 Potassium Chloride/Dextrose 1,000 ml @ 70 mls/hr [id number] IV 05/17/17 23:45 05/27/17 09:02 (Free Water) 300 ml Q4HR G-TUBE 05/18/17 12:00 05/27/17 08:00 (Pepcid) 20 mg DAILY NG 05/18/17 09:00 05/27/17 08:04 (Keppra Liq) 1,000 mg Q12HR NG 05/18/17 09:00 05/27/17 08:02 (Neurontin Liq) 100 mg HS NG 05/18/17 21:00 05/26/17 21:31 (Lanoxin) 0.125 mg DAILY PO 05/20/17 09:00 05/27/17 08:03 (Coreg) 25 mg BID PO 05/19/17 21:00 05/27/17 08:03 (Trandate Inj) 10 mg Q1H PRN IV 05/19/17 13:15 (Haldol Inj) 5 mg Q4H PRN IV 05/20/17 18:45 (Roxicodone Intensol Liq) 5 mg Q4H PO 05/20/17 19:00 05/27/17 07:00 (Cardizem) 30 mg Q6HR PO 05/20/17 18:45 05/27/17 07:00 (Altace) 2.5 mg DAILY PO 05/23/17 09:00 05/27/17 08:03 (D50w (Vial) Inj) 25 ml UNSCH PRN IV PUSH 05/26/17 13:15 (NovoLIN R SUPPLEMENTAL SCALE) 1 Q4HR SQ 05/26/17 16:00 05/27/17 08:00 Vital Signs / I&O Vital Signs Date Time Temp Pulse Resp B/P (MAP) Pulse Ox O2 Delivery O2 Flow Rate FiO2 05/27/17 08:00 75 05/27/17 08:00 99.0 75 16 133/62 (85) 99 05/27/17 08:00 35 05/27/17 07:00 76 18 135/60 (85) 96 05/27/17 07:00 76 05/27/17 06:00 76 05/27/17 04:54 15 05/27/17 04:20 97 35 05/27/17 04:00 35 05/27/17 04:00 99.8 75 16 160/72 (101) 97 05/27/17 04:00 75 05/27/17 02:00 71 05/27/17 01:10 98 35 05/27/17 00:00 99.6 74 16 123/58 (79) 97 05/27/17 00:00 74 05/27/17 00:00 35 05/26/17 22:00 67 05/26/17 21:37 97 35 05/26/17 20:00 77 05/26/17 20:00 99.6 78 16 146/68 (94) 98 05/26/17 20:00 35 05/26/17 18:00 74 05/26/17 16:26 98 35 05/26/17 16:00 76 05/26/17 16:00 35 05/26/17 16:00 100.4 76 18 120/59 (79) 98 05/26/17 14:00 71 05/26/17 13:15 100 35 05/26/17 12:00 99.7 67 17 100/55 (70) 100 05/26/17 12:00 35 05/26/17 12:00 67 05/26/17 10:10 100 35 05/26/17 10:00 77 I/O 05/26/17 05/26/17 05/26/17 05/27/17 05/27/17 05/27/17 07:00 15:00 23:00 07:00 15:00 23:00 Intake Total 1772 ml 653 ml Output Total 875 ml 30 ml Balance 897 ml -30 ml 653 ml Intake IV Total 822 ml 653 ml Other 950 ml Output Urine Total 475 ml 30 ml Stool Total 400 ml 0 ml Physical Exam GENERAL: SKIN: Warm and dry. HEAD: Normocephalic. EYES: No scleral icterus. No injection or drainage. NECK: Supple, trachea midline. No JVD or lymphadenopathy. CARDIOVASCULAR: Regular rate and rhythm without murmurs, gallops, or rubs. RESPIRATORY: Breath sounds equal bilaterally. No accessory muscle use. GASTROINTESTINAL: Abdomen soft, non-tender, nondistended. MUSCULOSKELETAL: No cyanosis, or edema. BACK: Nontender without obvious deformity. No CVA tenderness. Laboratory Laboratory Tests Test 05/26/17 15:20 05/26/17 15:25 05/26/17 16:50 Blood Urea Nitrogen 16 MG/DL Creatinine 1.08 MG/DL Random Glucose 226 MG/DL Calcium Level 8.4 MG/DL Sodium Level 140 MEQ/L Potassium Level 4.2 MEQ/L Chloride Level 106 MEQ/L Carbon Dioxide Level 25.9 MEQ/L Anion Gap 8 MEQ/L Estimat Glomerular Filtration Rate 63 ML/MIN White Blood Count 13.1 TH/MM3 Red Blood Count 2.94 MIL/MM3 Hemoglobin 9.0 GM/DL Hematocrit 27.2 % Mean Corpuscular Volume 92.6 FL Mean Corpuscular Hemoglobin 30.5 PG Mean Corpuscular Hemoglobin Concent 33.0 % Red Cell Distribution Width 14.7 % Platelet Count 333 TH/MM3 Mean Platelet Volume 9.7 FL Urine Color YELLOW Urine Turbidity HAZY Urine pH 7.0 Urine Specific [place] 1.016 Urine Protein 30 mg/dL Urine Glucose (UA) 300 mg/dL Urine Ketones 10 mg/dL Urine Occult Blood LARGE Urine Nitrite NEG Urine Bilirubin NEG Urine Urobilinogen LESS THAN 2.0 MG/DL Urine Leukocyte Esterase LARGE Urine RBC 70 /hpf Urine WBC 181 /hpf Urine Amorphous Sediment OCC Urine Yeast with Hyphae FEW Urine Yeast (Budding) FEW Microscopic Urinalysis Comment CATH-CULTURE IND Assessment and Plan Problem List: (1) CAD (coronary artery disease) ICD Codes: I25.10 - Atherosclerotic heart disease of [place] coronary artery without angina pectoris (2) CHRONIC OBSTRUCTIVE PULMON DISEASE W ACUTE LOWER RESP INFCT ICD Codes: J44.0 - CHRONIC OBSTRUCTIVE PULMON DISEASE W ACUTE LOWER RESP INFCT Status: Acute (3) Cardiomyopathy ICD Codes: I42.9 - Cardiomyopathy Status: Acute (4) Cardiopulmonary arrest ICD Codes: I46.9 - Cardiac arrest, cause unspecified Status: Acute (5) Diabetes mellitus ICD Codes: E11.9 - Type 2 diabetes mellitus without complications Status: Acute Assessment and Plan 1.) Cardiomyopathy - euvolemic, continue coreg 25 mg bid, start altace 2.5 mg qd , ujk=[id number] 05/23/17 2.) CAD - continue aspirin, statin held due to shock liver and elevated lfts 3.) s/p trach, awaiting [facility] care, s/p peg 05/25/17 4.) PAF - continue dig, cardizem, coreg, defer ac determination to neuro Aguila Early MD May 27, 2017 09:10
--- NOTE | 2017-05-27 12:03 | HHI.NPPN ---
Subjective History of Present Illness 56 year old female with cardiomyopathy COPD CAD Anoxic bran injury and develop ARF. Additional Remarks Patient remain comatose on vent Objective Data Data 05/27/17 05/28/17 19:00 07:00 Intake Total 653 ml Balance 653 ml Intake IV Total 653 ml Vital Signs Date Time Temp Pulse Resp B/P (MAP) Pulse Ox O2 Delivery O2 Flow Rate FiO2 05/27/17 11:54 100 35 05/27/17 09:16 99 35 05/27/17 08:00 75 05/27/17 08:00 99.0 75 16 133/62 (85) 99 05/27/17 08:00 35 05/27/17 07:00 76 18 135/60 (85) 96 05/27/17 07:00 76 05/27/17 06:00 76 05/27/17 04:54 15 05/27/17 04:20 97 35 05/27/17 04:00 35 05/27/17 04:00 99.8 75 16 160/72 (101) 97 05/27/17 04:00 75 05/27/17 02:00 71 05/27/17 01:10 98 35 05/27/17 00:00 99.6 74 16 123/58 (79) 97 05/27/17 00:00 74 05/27/17 00:00 35 05/26/17 22:00 67 05/26/17 21:37 97 35 05/26/17 20:00 77 05/26/17 20:00 99.6 78 16 146/68 (94) 98 05/26/17 20:00 35 05/26/17 18:00 74 05/26/17 16:26 98 35 05/26/17 16:00 76 05/26/17 16:00 35 05/26/17 16:00 100.4 76 18 120/59 (79) 98 05/26/17 14:00 71 05/26/17 13:15 100 35 -: 05/26/17 1525 05/26/17 1520 Microbiology 05/26/17 Aerobic Blood Culture - Preliminary, Resulted NO GROWTH IN 1 DAY 05/26/17 Anaerobic Blood Culture - Preliminary, Resulted NO GROWTH IN 1 DAY 05/26/17 Aerobic Blood Culture - Preliminary, Resulted NO GROWTH IN 1 DAY 05/26/17 Anaerobic Blood Culture - Preliminary, Resulted NO GROWTH IN 1 DAY 05/26/17 Gram Stain - Final, Resulted 05/26/17 Sputum Culture - Preliminary, Resulted IMMATURE GROWTH - REINCUBATE 05/26/17 Urine Culture, Received Pending Physical Exam Neck Neck Exam: Neck Supple Pulmonary Resp Exam: Breath Sounds Equal, Rhonchi, Decreased Bases, Poor Inspiratory Effort Cardiology CV Exam: Regular Gastrointestinal/Abdomen GI Exam: Soft, Bowel Sounds Present, Distended Extremeties Extremities Exam: Moderate Edema Neurologic Neuro Exam: Unresponsive Assessment/Plan Problem List: (1) Acute renal failure ICD Codes: N17.9 - Acute kidney failure, unspecified Plan: Patient with acute renal failure cardiomyopathy CHF coronary syndrome ATN ARF/CKD stable but she has anoxic brain injury and will be on Ventilator support Her prognosis is poor due to anoxic brain injury Na stable Cr stable will follow as needed water flushes/D5 KCL 70 cc/hr Follow the urine out put and BMP. nephrology to follow PRN (2) Cardiopulmonary arrest ICD Codes: I46.9 - Cardiac arrest, cause unspecified Status: Acute Plan: Critical care following (3) Cardiogenic shock ICD Codes: R57.0 - Cardiogenic shock Status: Resolved Plan: Cardiomyopathy (4) Anoxic encephalopathy ICD Codes: G93.1 - Anoxic brain damage, not elsewhere classified Status: Acute Plan: Brain injury with no recovery (5) Cardiomyopathy ICD Codes: I42.9 - Cardiomyopathy Status: Acute Plan: EF of 20% Problem Qualifiers (1) Acute renal failure: Qualified Codes: N17.0 - Acute kidney failure with tubular necrosis Apollo Hughes MD May 27, 2017 12:03
--- NOTE | 2017-05-27 19:18 | HHI.CCPN ---
Subjective Remarks/Hospital Course 56-year-old female with past medical history of hypertension, chronic systolic heart failure, diabetes, COPD bipolar disorder, seizure disorder who presented to [facility] emergency department via [facility] following cardiac arrest. [facility] was originally called for shortness of breath and when they arrived patient was unresponsive and in PEA. Combitube was placed. CPR was initiated and patient was administered epinephrine 4, 1 amp bicarbonate, Narcan 2 mg prior to arrival via left tibial I/O. Blood glucose was 334. Exact duration of prehospital CPR is unclear. Combitube was removed and she was intubated upon arrival. Patient had ROSC 5 minutes after arrival. She received additional epinephrine 2 in the ED. She also received 1 L normal saline bolus, vancomycin, Zosyn in the ED. Critical care medicine is consulted for admission. EKG has no acute ischemia. SUBJ 05/07: Intubated sedated neuromuscularly paralyzed. Induced hypothermia initiated at 7 AM, 2-D echo shows EF 25-30%, mild to moderate MR. Serial troponins negative 05/08: Remains neuromuscularly paralyzed. Hypothermia will be completed by the known and rewarming was started. Remains off inotropes and pressors 05/09: Hypothermia protocol completed, placed overnight on Versed also in addition to propofol and fentanyl for tachycardia and asynchrony. Currently patient while on sedation do not open eyes with very slight withdrawal to pain 05/10: Developed Afib with RVR yesterday with HR in 200's DC cardioverted at night by Dr. Chu. Placed back on Versed. RN reports paroxysmal A fib. EEG pending at this time for subclinical sz. EEG 05/07 burst suppression pattern. Neuro prognosis poor 05/11: No neuro improvement. Creat worsening, nephrology consulted. EEG severe encephalopathy consistent with anoxic injury. Palliative care is following 05/12: There had been no improvement in neuro status after completion of code cool approximately 4 days ago. Patient has not shown not seen any signs of improvement. Palliative care met with family. Patient is developing multiorgan dysfunction syndrome. Daughter wants withdrawal of life support but wants to wait until some other family members can visit from [place] 05/13: No meaningful recovery yet. Opens eyes partially to pain. Weakly withdraws all extremities to pain. UO 1.8L in 24 hours. Family considering withdrawal of life support today, considering comorbidities and poor neuro recovery after cooling 05/14: Eyes are spontaneously open but with upward gaze. No tracking no response to threat. Withdraws bilateral upper extremity to pain. Had been off sedation more than 4 days 05/15: Neuro exam remains unchanged, even less eye-opening and withdrawal. Fever up to 103.5. Pancultured. Continue on vancomycin and Zosyn until cultures are back. 05/16: no improvements or changes to mental status. persistent encephalopathy. poor prognosis. family wants to wait until other family can be present. palliative care clarifying goals. 05/17: no changes to poor mental status. still awaiting family. hypernatremia worsening. nephrology following. Cr improving though; ahsan post-ATN diuresis. 05/18: Tmax 98.9. Positive gag. Positive corneal reflex. Blinks. Does not withdraw to pain. Went to A. fib with RVR the today requiring synchronous cardioversion with 200 J currently in sinus tachycardia. Given digoxin 0.5 mg IV now. 05/19: Afebrile. Has not brain injury. Daughter yesterday she says she was the patient trach and PEG. Started on desmopressin per nephrology yesterday. Sodium still remains elevated. 05/20: no improvements in severe encephalopathy. Daughter continues to want aggressive treatment. will proceed with trach and PEG, and pursue long-term placement. 05/21: no improvements in neuro exam. s/p trach yesterday. GI consulted for PEG. needs placement. sodium downtrending and improving. 05/22: no improvements or changes. on SBT this AM on my eval. persistently encephalopathic. needs placement. Sodium derangements slowly improving. 05/23: PEG planned for today. weaning vent slowly. metabolic derangements improving. Cr downtrending. awaiting placement. 05/24: failed SBT yesterday for tachypnea. failed again today for persistent tachypnea and low tidal volumes. continue trying daily sbt's. 05/25: again attempted to wean pressure support and failed weaning attempt. no other acute issues. no indication for inpatient admission at this time. Needs LTAC for aggressive pulmonary rehab and weaning, but insurance denied. 05/26: failed weaning yesterday for weakness, tachypnea. new fever today. will obtain u/a, CXR, cultures. nontoxic appearing. will also draw procalcitonin level. nontoxic appearing and no other change in vital signs. PEG placed yesterday. Subjective 05/27: additional weaning attempts failed today. needs LTAC. resubmitted insurance authorization today, but no decision made. no indication for inpatient admission at this time, but no authorization to move. Objective Vital Signs Date Time Temp Pulse Resp B/P (MAP) Pulse Ox O2 Delivery O2 Flow Rate FiO2 05/27/17 18:00 67 05/27/17 17:00 16 120/56 (77) 05/27/17 16:00 99.6 05/27/17 16:00 35 05/27/17 14:29 95 Intake and Output 05/27/17 05/27/17 05/28/17 08:00 16:00 00:00 Intake Total 653 ml 1434 ml Output Total 575 ml Balance 653 ml 859 ml Result Diagram: 05/26/17 1525 05/26/17 1520 Imaging Last Impressions Chest X-Ray 05/18/17 0000 Signed Impressions: Service Date/Time: Thursday, May 18, 2017 08:14 - CONCLUSION: ET tube tip that the upper thoracic level. Increasing left lower lung consolidation. Obi Barnes MD Abdomen Ultrasound 05/07/17 0000 Signed Impressions: Service Date/Time: Sunday, May 07, 2017 14:19 - CONCLUSION: 1. Echogenic liver compatible with fatty infiltration or hepatocellular disease. 2. Cholecystectomy Laith Coe MD Head CT [id number]/06/[id number] Signed Impressions: Service Date/Time: Sunday, May 07, 2017 03:14 - CONCLUSION: Normal examination. Noé Ybarra MD CT Angiography 05/06/17 0000 Signed Impressions: Service Date/Time: Sunday, May 07, 2017 03:21 - CONCLUSION: 1. No pulmonary embolus. 2. Bibasilar areas of consolidation or atelectasis being worse on the left. There are minimal bilateral pleural effusions. Noé Ybarra MD Objective Remarks GENERAL: 56-year-old female who is trached, unresponsive. SKIN: Warm and dry. Well perfused HEAD: Atraumatic. Normocephalic. EYES: Bilateral exophthalmus. Pupils equal and round, reactive around 4 mm bilaterally. Positive corneal reflex ENT: No nasal bleeding or discharge. fresh tracheostomy in place without evidence of bleeding. NECK: Trachea midline. No JVD appreciated. No meningismus CARDIOVASCULAR: normal rate, regular rhythm. sinus by tele. RESPIRATORY: PSV 10/5. fio2 35%, tachypneic. equal chest rise. GASTROINTESTINAL: Abdomen protuberant soft. No appreciable tenderness , rebound or guarding. : Benoit catheter is in place MUSCULOSKELETAL: Extremities without significant peripheral edema NEUROLOGICAL: Blinks.. Minimal partial eye opening to pain. Slight withdrawal to pain in all 4 ext upper extremities more than lower. Pupils as above. Positive gag. A/P Problem List: (1) Cardiac arrest ICD Code: I46.9 - Cardiac arrest, cause unspecified Status: Resolved (2) Anoxic-ischemic encephalopathy ICD Code: G93.1 - Anoxic brain damage, not elsewhere classified; I67.82 - Cerebral ischemia Status: Chronic (3) Chronic systolic heart failure ICD Code: I50.22 - Chronic systolic (congestive) heart failure Status: Chronic (4) Exophthalmos of both eyes ICD Code: H05.20 - Unspecified exophthalmos Status: Chronic (5) HTN (hypertension) ICD Code: I10 - Essential (primary) hypertension Status: Chronic (6) HLD (hyperlipidemia) ICD Code: E78.5 - Hyperlipidemia, unspecified Status: Chronic (7) Cardiogenic shock ICD Code: R57.0 - Cardiogenic shock Status: Resolved (8) Acute respiratory failure with hypercapnia ICD Code: J96.02 - Acute respiratory failure with hypercapnia Status: Chronic (9) Obesity (BMI 30-39.9) ICD Code: E66.9 - Obesity, unspecified Status: Chronic (10) CHF (congestive heart failure) ICD Code: I50.9 - CHF (congestive heart failure) Status: Resolved (11) Bipolar disorder ICD Code: F31.9 - Bipolar affective disorder Status: Chronic (12) COPD (chronic obstructive pulmonary disease) ICD Code: J44.9 - Chronic obstructive pulmonary disease Status: Chronic (13) Tobacco abuse ICD Code: Z72.0 - Tobacco use Status: Chronic Assessment and Plan Assessment: 56yF with severe hypoxic-ischemic encephalopathy. poor prognosis. family wants aggressive care. s/p trach and PEG. we have been attempting to wean pressure on CPAP but unable given poor tidal volumes and tachypnea. will need long-term acute care facility to facilitate pulmonary rehab for weaning. stable to leave inpatient setting at this point if it weren't for failure to wean after multiple days of attempts (initial CPAP trials started 05/22). No additional fevers since 05/26, likely from procedure. cultures pending, yeast in urine colonization. still stable for transfer to LTAC, but no approval from funding. NEURO/PSYCH: Acute anoxic encephalopathy, severe Bipolar disorder Exophthalmus Status post completion of induced therapeutic hypothermia. initiated at 0700 , completed 05/08/17. Off sedation more than 7 days No neurologic improvement yet, prognosis poor. Neurology Dr. Solitario. CT brain - negative. Depakote level. 48. Was on Depakote for bipolar. restarted Depakote at 250 twice a day 500 daily at home Lactulose 30 daily. Ammonia level down to 31. Neg urine drug screen, APAP, ASA level. Resumed gabapentin 100 milligrams at night. Holding bupropion 150 mg daily EEG shows severe encephalopathy, burst suppression pattern. Repeat EEG severe encephalopathy RESP: Acute hypercapnic respiratory failure COPD Tobacco abuse Ventilator bundle. Albuterol/ipratropium aerosols q6 hours. Albuterol q2 hours prn. No Wheezing s/p perc trach 05/[address] Melvin and Mathieu. daily weaning attempts. continues to fail. needs LTAC for aggressive pulmonary rehab. CV: s/p PEA cardiac arrest Post cardiac arrest syndrome with shock (resolved) Afib with RVR - resolved. Chronic systolic heart failure with ejection fraction 15-20% (25-30 on echo) Nonobstructive Coronary artery disease Essential Hypertension, uncontrolled Hyperlipidemia Holding valsartan 160 mg due to acute kidney injury. Carvedilol 12.5 mg twice a day increased to 25 mg twice a day and amlodipine 10 mg daily. use IV Hydralazine and labetalol PRN for SBP >170. DCCV for Afib RVR with HR 200/min. 2. Second time 05/18 Continue Cardizem for paroxysmal A fib and digoxin 0.125 mg daily EKG normal sinus rhythm rate of 99. No apparent acute ischemia. Follow-up serial EKGs and cardiac markers-negative. 2-D echo EF 25-30%. Cardiology Dr. Early Etiology of cardiac arrest unclear. Most likely due to hypercapnia and respiratory acidosis Continue aspirin 81 mg daily. Holding statin simvastatin 40 mg daily due to elevated LFTs. PO cardizem. GI: GERD Transaminitis, probable ischemic hepatopathy. Orogastric tube. RUQ us-fatty liver, hepatitis panel negative Tube feeds with Glucerna currently at 45 cc an hour Famotidine for GI prophylaxis Docusate sodium/senna twice a day for bowel regimen s/p PEG placement. restart tube feeds. FEN/RENAL: MARQUEZ Lactic acidemia Hypernatremia - slowly improving but persistent. Benoit in place. Monitor intake and output. Monitor electrolytes and replace as indicated. Hold home NSAID's. Creat improved today Nephrology consult for worsening creatinine. Dr. Hughes following. Nonoliguric renal failure ID: High fever, sepsis Candiduria Bacteremia with strep viridans, Coag neg staph, pleomorphic GPR New fever s/p full course of Vanc/Zosyn for strep bacteremia (2 weeks of vancomycin for GPC bacteremia). d/c and monitor clinically. Blood cultures 05/06 with strep radius, coag negative staph and pleomorphic gram -positive rods. Urine culture 05/03 with Lucinda albicans HEME: No acute hematologic issues. ENDO: Diabetes mellitus with acute hyperglycemia Hold metformin 1000 mg twice a day, glipizide 5 mg twice a day, insulin glargine 24 units daily. SSI Novulog every 4 hours, increase to high scale. Thyroid studies-essentially euthyroid PROPH: Sq heparin for DVT prophylaxis. Famotidine for stress ulcer prophylaxis and history of GERD ACCESS: Peripheral IV. Central line if indicated. ALT CODE. Palliative care following. Prognosis appears very poor. Problem Qualifiers (1) HTN (hypertension): Qualified Codes: I10 - Essential (primary) hypertension Luis Manuel Melvin MD May 27, 2017 19:18
[2017-05-27] MEDS: GABAPENTIN 250 MG/5 ML UDC NG SCH (19:43)
[2017-05-27] MEDS: ACETAMINOPHEN 325 MG TAB PO PRN (23:03)
[2017-05-28] VITALS (18 sets, daily range): BP systolic 109–129; BP diastolic 55–60; PULSE 66–76; RESP 18–25; TEMP 98.5–100.5; O2SAT 95–100
[2017-05-28] MEDS: CHLORHEXIDINE GLUCONATE 2 % 1 PACK (2 CLOTHS) TOP SCH (02:41)
[2017-05-28] MEDS: FREE WATER G-TUBE SCH ×5 (04:00→20:00)
[2017-05-28] MEDS: oxyCODONE HCL ORAL CONC 5 MG/0.25 ML SYRINGE PO SCH ×6 (04:39→22:21)
[2017-05-28] MEDS: INSULIN NovoLIN REGULAR SUPPLEMENTAL SCALE SQ SCH ×5 (04:45→20:00)
[2017-05-28] MEDS: DILTIAZEM HCL 30 MG TAB PO SCH ×3 (05:25→16:34)
[2017-05-28] MEDS: CARVEDILOL 12.5 MG TAB PO SCH ×2 (08:38→20:34)
[2017-05-28] MEDS: DOCUSATE SODIUM 50 MG/SENNA 8.6 MG TAB PO SCH ×2 (08:38→20:36)
[2017-05-28] MEDS: DIGOXIN 0.125 MG TAB PO SCH (08:38)
[2017-05-28] MEDS: RAMIPRIL 2.5 MG CAP PO SCH (08:38)
[2017-05-28] MEDS: levETIRAcetam 500 MG/5 ML UDC NG SCH ×2 (08:38→20:36)
[2017-05-28] MEDS: FAMOTIDINE 20 MG TAB NG SCH (08:39)
[2017-05-28] MEDS: ASPIRIN EC 81 MG TABEC PO SCH (08:39)
[2017-05-28] MEDS: LACTULOSE SYRUP 20 GM/30 ML CUP OG-TUBE SCH (08:39)
[2017-05-28] MEDS: VALPROIC ACID SYRUP 250 MG/5 ML UDC NG SCH ×2 (08:39→20:33)
[2017-05-28] MEDS: SODIUM CHLORIDE 0.9% FLUSH 10 ML FLUSH IV FLUSH SCH ×2 (08:39→20:34)
[2017-05-28] MEDS: ARTIFICIAL TEARS OPTH OINT 3.5 APPLIC/3.5 GM TUBO EACH EYE SCH ×2 (08:40→20:35)
[2017-05-28] MEDS: CHLORHEXIDINE 0.12% (ORAL KIT) 15 ML CUP MT SCH ×2 (08:40→20:36)
[2017-05-28] MEDS: D5W + KCL 20 MEQ INJ 1,000 ML IV SCH (14:05)
--- NOTE | 2017-05-28 18:20 | PD.CARD.PN ---
Subjective Subjective Remarks s/p tracheotomy, unresponsive off sedation Objective Medications Current Medications Medications (Trade) Dose Ordered Sig/Scarlett Route Start Time Stop Time Status Last Admin (Tylenol) 650 mg Q6H PRN PO 05/06/17 23:30 05/27/17 23:03 (Zofran Inj) 4 mg Q6H PRN IV PUSH 05/06/17 23:30 (Albuterol Neb) 2.5 mg Q2HR NEB PRN INH 05/06/17 23:30 05/26/17 21:37 Miscellaneous Information 1 Q361D XX 05/06/17 23:30 (Chlorhexidine 2% Cloth) 3 pack Taper DAILY@04 TOP 05/07/17 04:00 05/03/18 03:59 05/26/17 03:28 (Chlorhexidine 2% Cloth) 3 pack UNSCH PRN TOP 05/06/17 23:30 (Aggie-Colace) 1 tab BID PO 05/07/17 09:00 05/28/17 08:38 (Milk Of Magnesia Liq) 30 ml Q12H PRN PO 05/06/17 23:30 (Senokot) 17.2 mg Q12H PRN PO 05/06/17 23:30 (Dulcolax Supp) 10 mg DAILY PRN RECTAL 05/06/17 23:30 (Peridex 0.12% Liq) 15 ml BID@08,20 MT 05/07/17 08:00 05/28/17 08:40 (NS Flush) 2 ml BID IV FLUSH 05/07/17 09:00 05/28/17 08:39 (NS Flush) 2 ml UNSCH PRN IV FLUSH 05/07/17 04:30 (Heparin Inj) 5,000 units Q12H SQ 05/07/17 05:00 Future Hold 05/22/17 04:27 (Lacrilube Opht Oint) 1 applic Q12HR EACH EYE 05/07/17 09:00 05/28/17 08:40 (Ecotrin Ec) 81 mg DAILY PO 05/08/17 09:00 05/28/17 08:39 (Lactulose Liq) 30 ml DAILY OG-TUBE 05/07/17 09:00 05/28/17 08:39 (Glucagon Inj) 1 mg UNSCH PRN OTHER 05/08/17 00:30 (Apresoline Inj) 20 mg Q4H PRN IV PUSH 05/13/17 11:15 05/21/17 02:57 (Norvasc) 10 mg DAILY PO 05/14/17 09:15 05/28/17 08:38 (Depakene Liq) 250 mg BID NG 05/16/17 11:00 05/28/17 08:39 Potassium Chloride/Dextrose 1,000 ml @ 70 mls/hr [id number] IV 05/17/17 23:45 05/28/17 14:05 (Free Water) 300 ml Q4HR G-TUBE 05/18/17 12:00 05/28/17 16:00 (Pepcid) 20 mg DAILY NG 05/18/17 09:00 05/28/17 08:39 (Keppra Liq) 1,000 mg Q12HR NG 05/18/17 09:00 05/28/17 08:38 (Neurontin Liq) 100 mg HS NG 05/18/17 21:00 05/27/17 19:43 (Lanoxin) 0.125 mg DAILY PO 05/20/17 09:00 05/28/17 08:38 (Coreg) 25 mg BID PO 05/19/17 21:00 05/28/17 08:38 (Trandate Inj) 10 mg Q1H PRN IV 05/19/17 13:15 (Haldol Inj) 5 mg Q4H PRN IV 05/20/17 18:45 (Roxicodone Intensol Liq) 5 mg Q4H PO 05/20/17 19:00 05/28/17 16:35 (Cardizem) 30 mg Q6HR PO 05/20/17 18:45 05/28/17 16:34 (Altace) 2.5 mg DAILY PO 05/23/17 09:00 05/28/17 08:38 (D50w (Vial) Inj) 25 ml UNSCH PRN IV PUSH 05/26/17 13:15 (NovoLIN R SUPPLEMENTAL SCALE) 1 Q4HR SQ 05/26/17 16:00 05/28/17 16:00 Vital Signs / I&O Vital Signs Date Time Temp Pulse Resp B/P (MAP) Pulse Ox O2 Delivery O2 Flow Rate FiO2 05/28/17 18:00 75 05/28/17 17:47 95 35 05/28/17 16:00 99.2 74 22 121/59 (79) 95 05/28/17 16:00 74 05/28/17 16:00 35 05/28/17 13:12 100 35 05/28/17 12:00 99.4 66 20 109/55 (73) 99 05/28/17 12:00 69 05/28/17 12:00 35 05/28/17 11:27 18 05/28/17 10:00 68 05/28/17 09:56 99 35 05/28/17 08:13 98 35 05/28/17 08:00 70 05/28/17 08:00 99.6 70 18 123/59 (80) 99 05/28/17 08:00 35 05/28/17 06:00 76 05/28/17 04:11 98 35 05/28/17 04:00 72 05/28/17 04:00 100.3 72 20 119/57 (77) 98 05/28/17 04:00 35 05/28/17 02:00 67 05/28/17 01:24 99 35 05/28/17 00:00 68 05/28/17 00:00 35 05/28/17 00:00 100.5 66 18 115/56 (75) 100 05/27/17 23:59 19 05/27/17 22:00 68 05/27/17 20:10 100 35 05/27/17 20:00 35 05/27/17 20:00 99.4 73 20 119/58 (78) 99 05/27/17 20:00 73 I/O 05/27/17 05/27/17 05/27/17 05/28/17 05/28/17 05/28/17 07:00 15:00 23:00 07:00 15:00 23:00 Intake Total 653 ml 1434 ml 2068 ml 2314 ml Output Total 575 ml 1420 ml 700 ml Balance 653 ml 859 ml 648 ml 1614 ml Intake IV Total 653 ml 1635 ml 874 ml Tube Feeding 534 ml 433 ml 540 ml Other 900 ml 900 ml Output Urine Total 175 ml 420 ml 500 ml Stool Total 400 ml 1000 ml 200 ml Physical Exam GENERAL: SKIN: Warm and dry. HEAD: Normocephalic. EYES: No scleral icterus. No injection or drainage. NECK: Supple, trachea midline. No JVD or lymphadenopathy. CARDIOVASCULAR: Regular rate and rhythm without murmurs, gallops, or rubs. RESPIRATORY: Breath sounds equal bilaterally. No accessory muscle use. GASTROINTESTINAL: Abdomen soft, non-tender, nondistended. MUSCULOSKELETAL: No cyanosis, or edema. BACK: Nontender without obvious deformity. No CVA tenderness. Assessment and Plan Problem List: (1) CAD (coronary artery disease) ICD Codes: I25.10 - Atherosclerotic heart disease of [place] coronary artery without angina pectoris (2) CHRONIC OBSTRUCTIVE PULMON DISEASE W ACUTE LOWER RESP INFCT ICD Codes: J44.0 - CHRONIC OBSTRUCTIVE PULMON DISEASE W ACUTE LOWER RESP INFCT Status: Acute (3) Cardiomyopathy ICD Codes: I42.9 - Cardiomyopathy Status: Acute (4) Cardiopulmonary arrest ICD Codes: I46.9 - Cardiac arrest, cause unspecified Status: Acute (5) Diabetes mellitus ICD Codes: E11.9 - Type 2 diabetes mellitus without complications Status: Acute Assessment and Plan 1.) Cardiomyopathy - euvolemic, continue coreg 25 mg bid, start altace 2.5 mg qd , [id number] 05/23/17 2.) CAD - continue aspirin, statin held due to shock liver and elevated lfts 3.) s/p trach, 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
[2017-05-28] MEDS: GABAPENTIN 250 MG/5 ML UDC NG SCH (20:34)
[2017-05-29] VITALS (19 sets, daily range): BP systolic 114–133; BP diastolic 56–62; PULSE 67–75; RESP 17–22; TEMP 98.1–99.1; O2SAT 92–97
[2017-05-29] MEDS: DILTIAZEM HCL 30 MG TAB PO SCH ×4 (00:07→18:00)
[2017-05-29] MEDS: oxyCODONE HCL ORAL CONC 5 MG/0.25 ML SYRINGE PO SCH ×6 (02:45→23:01)
[2017-05-29] MEDS: D5W + KCL 20 MEQ INJ 1,000 ML IV SCH (03:27)
[2017-05-29] MEDS: CHLORHEXIDINE GLUCONATE 2 % 1 PACK (2 CLOTHS) TOP SCH (03:44)
[2017-05-29] MEDS: INSULIN NovoLIN REGULAR SUPPLEMENTAL SCALE SQ SCH ×6 (03:53→20:00)
[2017-05-29] MEDS: FREE WATER G-TUBE SCH ×6 (03:53→20:00)
--- NOTE | 2017-05-29 06:34 | HHI.CCPN ---
Subjective Remarks/Hospital Course 56-year-old female with past medical history of hypertension, chronic systolic heart failure, diabetes, COPD bipolar disorder, seizure disorder who presented to [facility] emergency department via [facility] following cardiac arrest. [facility] was originally called for shortness of breath and when they arrived patient was unresponsive and in PEA. Combitube was placed. CPR was initiated and patient was administered epinephrine 4, 1 amp bicarbonate, Narcan 2 mg prior to arrival via left tibial I/O. Blood glucose was 334. Exact duration of prehospital CPR is unclear. Combitube was removed and she was intubated upon arrival. Patient had ROSC 5 minutes after arrival. She received additional epinephrine 2 in the ED. She also received 1 L normal saline bolus, vancomycin, Zosyn in the ED. Critical care medicine is consulted for admission. EKG has no acute ischemia. SUBJ 05/07: Intubated sedated neuromuscularly paralyzed. Induced hypothermia initiated at 7 AM, 2-D echo shows EF 25-30%, mild to moderate MR. Serial troponins negative 05/08: Remains neuromuscularly paralyzed. Hypothermia will be completed by the known and rewarming was started. Remains off inotropes and pressors 05/09: Hypothermia protocol completed, placed overnight on Versed also in addition to propofol and fentanyl for tachycardia and asynchrony. Currently patient while on sedation do not open eyes with very slight withdrawal to pain 05/10: Developed Afib with RVR yesterday with HR in 200's DC cardioverted at night by Dr. Chu. Placed back on Versed. RN reports paroxysmal A fib. EEG pending at this time for subclinical sz. EEG 05/07 burst suppression pattern. Neuro prognosis poor 05/11: No neuro improvement. Creat worsening, nephrology consulted. EEG severe encephalopathy consistent with anoxic injury. Palliative care is following 05/12: There had been no improvement in neuro status after completion of code cool approximately 4 days ago. Patient has not shown not seen any signs of improvement. Palliative care met with family. Patient is developing multiorgan dysfunction syndrome. Daughter wants withdrawal of life support but wants to wait until some other family members can visit [place] [facility] 05/13: No meaningful recovery yet. Opens eyes partially to pain. Weakly withdraws all extremities to pain. UO 1.8L in 24 hours. Family considering withdrawal of life support today, considering comorbidities and poor neuro recovery after cooling 05/14: Eyes are spontaneously open but with upward gaze. No tracking no response to threat. Withdraws bilateral upper extremity to pain. Had been off sedation more than 4 days 05/15: Neuro exam remains unchanged, even less eye-opening and withdrawal. Fever up to 103.5. Pancultured. Continue on vancomycin and Zosyn until cultures are back. 05/16: no improvements or changes to mental status. persistent encephalopathy. poor prognosis. family wants to wait until other family can be present. palliative care clarifying goals. 05/17: no changes to poor mental status. still awaiting family. hypernatremia worsening. nephrology following. Cr improving though; ahsan post-ATN diuresis. 05/18: Tmax 98.9. Positive gag. Positive corneal reflex. Blinks. Does not withdraw to pain. Went to A. fib with RVR the today requiring synchronous cardioversion with 200 J currently in sinus tachycardia. Given digoxin 0.5 mg IV now. 05/19: Afebrile. Has not brain injury. Daughter yesterday she says she was the patient trach and PEG. Started on desmopressin per nephrology yesterday. Sodium still remains elevated. 05/20: no improvements in severe encephalopathy. Daughter continues to want aggressive treatment. will proceed with trach and PEG, and pursue long-term placement. 05/21: no improvements in neuro exam. s/p trach yesterday. GI consulted for PEG. needs placement. sodium downtrending and improving. 05/22: no improvements or changes. on SBT this AM on my eval. persistently encephalopathic. needs placement. Sodium derangements slowly improving. 05/23: PEG planned for today. weaning vent slowly. metabolic derangements improving. Cr downtrending. awaiting placement. 05/24: failed SBT yesterday for tachypnea. failed again today for persistent tachypnea and low tidal volumes. continue trying daily sbt's. 05/25: again attempted to wean pressure support and failed weaning attempt. no other acute issues. no indication for inpatient admission at this time. Needs LTAC for aggressive pulmonary rehab and weaning, but insurance denied. 05/26: failed weaning yesterday for weakness, tachypnea. new fever today. will obtain u/a, CXR, cultures. nontoxic appearing. will also draw procalcitonin level. nontoxic appearing and no other change in vital signs. PEG placed yesterday. 05/27: additional weaning attempts failed today. needs LTAC. resubmitted insurance authorization today, but no decision made. no indication for inpatient admission at this time, but no authorization to move. 05/28: no changes or improvements. still awaiting second authorization attempt to get to LTAC. Subjective 05/29: no changes. afebrile. will again try daily weaning attempts. slow progress. needs LTAC. Objective Vital Signs Date Time Temp Pulse Resp B/P (MAP) Pulse Ox O2 Delivery O2 Flow Rate FiO2 05/29/17 06:00 74 05/29/17 04:39 96 35 05/29/17 04:00 98.7 19 124/60 (81) Intake and Output 05/29/17 05/29/17 05/30/17 08:00 16:00 00:00 Intake Total 2016 ml Output Total 2500 ml Balance -484 ml Result Diagram: 05/26/17 1525 05/26/17 1520 Other Results Microbiology Date/Time Source Procedure Growth Status 05/26/17 13:30 Sputum Endotracheal Gram Stain - Final Complete 05/26/17 13:30 Sputum Endotracheal Sputum Culture - Final MODERATE GROWTH NORMAL RESPIRATORY JORDEN Complete 05/26/17 16:50 Urine Catheterized Urine Urine Culture - Final Lucinda Albicans Complete Imaging Last Impressions Chest X-Ray 05/18/17 0000 Signed Impressions: Service Date/Time: Thursday, May 18, 2017 08:14 - CONCLUSION: ET tube tip that the upper thoracic level. Increasing left lower lung consolidation. Obi Barnes MD Abdomen Ultrasound 05/07/17 0000 Signed Impressions: Service Date/Time: Sunday, May 07, 2017 14:19 - CONCLUSION: 1. Echogenic liver compatible with fatty infiltration or hepatocellular disease. 2. Cholecystectomy Laith Coe MD Head CT [id number] Signed Impressions: Service Date/Time: Sunday, May 07, 2017 03:14 - CONCLUSION: Normal examination. Noé Ybarra MD CT Angiography 05/06/17 0000 Signed Impressions: Service Date/Time: Sunday, May 07, 2017 03:21 - CONCLUSION: 1. No pulmonary embolus. 2. Bibasilar areas of consolidation or atelectasis being worse on the left. There are minimal bilateral pleural effusions. Noé Ybarra MD Objective Remarks GENERAL: 56-year-old female who is trached, unresponsive. SKIN: Warm and dry. Well perfused HEAD: Atraumatic. Normocephalic. EYES: Bilateral exophthalmus. Pupils equal and round, reactive around 4 mm bilaterally. Positive corneal reflex ENT: No nasal bleeding or discharge. fresh tracheostomy in place without evidence of bleeding. NECK: Trachea midline. No JVD appreciated. No meningismus CARDIOVASCULAR: normal rate, regular rhythm. sinus by tele. RESPIRATORY: PSV 10/5. fio2 35%, tachypneic. equal chest rise. GASTROINTESTINAL: Abdomen protuberant soft. No appreciable tenderness , rebound or guarding. : Benoit catheter is in place MUSCULOSKELETAL: Extremities without significant peripheral edema NEUROLOGICAL: Blinks.. Minimal partial eye opening to pain. Slight withdrawal to pain in all 4 ext upper extremities more than lower. Pupils as above. Positive gag. A/P Problem List: (1) Cardiac arrest ICD Code: I46.9 - Cardiac arrest, cause unspecified Status: Resolved (2) Anoxic-ischemic encephalopathy ICD Code: G93.1 - Anoxic brain damage, not elsewhere classified; I67.82 - Cerebral ischemia Status: Chronic (3) Chronic systolic heart failure ICD Code: I50.22 - Chronic systolic (congestive) heart failure Status: Chronic (4) Exophthalmos of both eyes ICD Code: H05.20 - Unspecified exophthalmos Status: Chronic (5) HTN (hypertension) ICD Code: I10 - Essential (primary) hypertension Status: Chronic (6) HLD (hyperlipidemia) ICD Code: E78.5 - Hyperlipidemia, unspecified Status: Chronic (7) Cardiogenic shock ICD Code: R57.0 - Cardiogenic shock Status: Resolved (8) Acute respiratory failure with hypercapnia ICD Code: J96.02 - Acute respiratory failure with hypercapnia Status: Chronic (9) Obesity (BMI 30-39.9) ICD Code: E66.9 - Obesity, unspecified Status: Chronic (10) CHF (congestive heart failure) ICD Code: I50.9 - CHF (congestive heart failure) Status: Resolved (11) Bipolar disorder ICD Code: F31.9 - Bipolar affective disorder Status: Chronic (12) COPD (chronic obstructive pulmonary disease) ICD Code: J44.9 - Chronic obstructive pulmonary disease Status: Chronic (13) Tobacco abuse ICD Code: Z72.0 - Tobacco use Status: Chronic Assessment and Plan Assessment: 56yF with severe hypoxic-ischemic encephalopathy. poor prognosis. family wants aggressive care. s/p trach and PEG. we have been attempting to wean pressure on CPAP but unable given poor tidal volumes and tachypnea. will need long-term acute care facility to facilitate pulmonary rehab for weaning. stable to leave inpatient setting at this point if it weren't for failure to wean after multiple days of attempts (initial CPAP trials started 05/22). No additional fevers since 05/26, likely from procedure. cultures pending, yeast in urine colonization. still stable for transfer to LTAC, but no approval from funding. NEURO/PSYCH: Acute anoxic encephalopathy, severe Bipolar disorder Exophthalmus Status post completion of induced therapeutic hypothermia. initiated at 0700 , completed 05/08/17. Off sedation more than 7 days No neurologic improvement yet, prognosis poor. Neurology Dr. Solitario. CT brain - negative. Depakote level. 48. Was on Depakote for bipolar. restarted Depakote at 250 twice a day 500 daily at home Lactulose 30 daily. Ammonia level down to 31. Neg urine drug screen, APAP, ASA level. Resumed gabapentin 100 milligrams at night. Holding bupropion 150 mg daily EEG shows severe encephalopathy, burst suppression pattern. Repeat EEG severe encephalopathy RESP: Acute hypercapnic respiratory failure COPD Tobacco abuse Ventilator bundle. Albuterol/ipratropium aerosols q6 hours. Albuterol q2 hours prn. No Wheezing s/p perc trach 05/[address] Melvin and Mathieu. daily weaning attempts. continues to fail. needs LTAC for aggressive pulmonary rehab. CV: s/p PEA cardiac arrest Post cardiac arrest syndrome with shock (resolved) Afib with RVR - resolved. Chronic systolic heart failure with ejection fraction 15-20% (25-30 on echo) Nonobstructive Coronary artery disease Essential Hypertension, uncontrolled Hyperlipidemia Holding valsartan 160 mg due to acute kidney injury. Carvedilol 12.5 mg twice a day increased to 25 mg twice a day and amlodipine 10 mg daily. use IV Hydralazine and labetalol PRN for SBP >170. DCCV for Afib RVR with HR 200/min. 2. Second time 05/18 Continue Cardizem for paroxysmal A fib and digoxin 0.125 mg daily EKG normal sinus rhythm rate of 99. No apparent acute ischemia. Follow-up serial EKGs and cardiac markers-negative. 2-D echo EF 25-30%. Cardiology Dr. Early Etiology of cardiac arrest unclear. Most likely due to hypercapnia and respiratory acidosis Continue aspirin 81 mg daily. Holding statin simvastatin 40 mg daily due to elevated LFTs. PO cardizem. GI: GERD Transaminitis, probable ischemic hepatopathy. Orogastric tube. RUQ us-fatty liver, hepatitis panel negative Tube feeds with Glucerna currently at 45 cc an hour Famotidine for GI prophylaxis Docusate sodium/senna twice a day for bowel regimen s/p PEG placement. restart tube feeds. FEN/RENAL: MARQUEZ Lactic acidemia Hypernatremia - slowly improving but persistent. Benoit in place. Monitor intake and output. Monitor electrolytes and replace as indicated. Hold home NSAID's. Creat improved today Nephrology consult for worsening creatinine. Dr. Hughes following. Nonoliguric renal failure ID: High fever, sepsis Candiduria Bacteremia with strep viridans, Coag neg staph, pleomorphic GPR New fever s/p full course of Vanc/Zosyn for strep bacteremia (2 weeks of vancomycin for GPC bacteremia). d/c and monitor clinically. Blood cultures 05/06 with strep radius, coag negative staph and pleomorphic gram -positive rods. Urine culture 05/03 with Lucinda albicans HEME: No acute hematologic issues. ENDO: Diabetes mellitus with acute hyperglycemia Hold metformin 1000 mg twice a day, glipizide 5 mg twice a day, insulin glargine 24 units daily. SSI Novulog every 4 hours, increase to high scale. Thyroid studies-essentially euthyroid PROPH: Sq heparin for DVT prophylaxis. Famotidine for stress ulcer prophylaxis and history of GERD ACCESS: Peripheral IV. Central line if indicated. ALT CODE. Palliative care following. Prognosis appears very poor. Problem Qualifiers (1) HTN (hypertension): Qualified Codes: I10 - Essential (primary) hypertension Luis Manuel Melvin MD May 29, 2017 06:34
[2017-05-29] MEDS: LACTULOSE SYRUP 20 GM/30 ML CUP OG-TUBE SCH (07:57)
[2017-05-29] MEDS: CARVEDILOL 12.5 MG TAB PO SCH ×2 (07:57→20:54)
[2017-05-29] MEDS: DIGOXIN 0.125 MG TAB PO SCH (07:58)
[2017-05-29] MEDS: DOCUSATE SODIUM 50 MG/SENNA 8.6 MG TAB PO SCH ×2 (07:58→21:00)
[2017-05-29] MEDS: RAMIPRIL 2.5 MG CAP PO SCH (07:58)
[2017-05-29] MEDS: ASPIRIN EC 81 MG TABEC PO SCH (07:58)
[2017-05-29] MEDS: FAMOTIDINE 20 MG TAB NG SCH (07:59)
[2017-05-29] MEDS: VALPROIC ACID SYRUP 250 MG/5 ML UDC NG SCH ×2 (07:59→20:54)
[2017-05-29] MEDS: SODIUM CHLORIDE 0.9% FLUSH 10 ML FLUSH IV FLUSH SCH ×2 (08:00→20:53)
[2017-05-29] MEDS: ARTIFICIAL TEARS OPTH OINT 3.5 APPLIC/3.5 GM TUBO EACH EYE SCH ×2 (08:00→20:53)
[2017-05-29] MEDS: levETIRAcetam 500 MG/5 ML UDC NG SCH ×2 (08:00→20:54)
[2017-05-29] MEDS: CHLORHEXIDINE 0.12% (ORAL KIT) 15 ML CUP MT SCH ×2 (08:01→20:52)
--- NOTE | 2017-05-29 10:17 | PD.CARD.PN ---
Subjective Subjective Remarks s/p tracheotomy, unresponsive off sedation Objective Medications Current Medications Medications (Trade) Dose Ordered Sig/Scarlett Route Start Time Stop Time Status Last Admin (Tylenol) 650 mg Q6H PRN PO 05/06/17 23:30 05/27/17 23:03 (Zofran Inj) 4 mg Q6H PRN IV PUSH 05/06/17 23:30 (Albuterol Neb) 2.5 mg Q2HR NEB PRN INH 05/06/17 23:30 05/26/17 21:37 Miscellaneous Information 1 Q361D XX 05/06/17 23:30 (Chlorhexidine 2% Cloth) 3 pack Taper DAILY@04 TOP 05/07/17 04:00 05/03/18 03:59 05/29/17 03:44 (Chlorhexidine 2% Cloth) 3 pack UNSCH PRN TOP 05/06/17 23:30 (Aggie-Colace) 1 tab BID PO 05/07/17 09:00 05/29/17 07:58 (Milk Of Magnesia Liq) 30 ml Q12H PRN PO 05/06/17 23:30 (Senokot) 17.2 mg Q12H PRN PO 05/06/17 23:30 (Dulcolax Supp) 10 mg DAILY PRN RECTAL 05/06/17 23:30 (Peridex 0.12% Liq) 15 ml BID@08,20 MT 05/07/17 08:00 05/29/17 08:01 (NS Flush) 2 ml BID IV FLUSH 05/07/17 09:00 05/29/17 08:00 (NS Flush) 2 ml UNSCH PRN IV FLUSH 05/07/17 04:30 (Heparin Inj) 5,000 units Q12H SQ 05/07/17 05:00 Future Hold 05/22/17 04:27 (Lacrilube Opht Oint) 1 applic Q12HR EACH EYE 05/07/17 09:00 05/29/17 08:00 (Ecotrin Ec) 81 mg DAILY PO 05/08/17 09:00 05/29/17 07:58 (Lactulose Liq) 30 ml DAILY OG-TUBE 05/07/17 09:00 05/29/17 07:57 (Glucagon Inj) 1 mg UNSCH PRN OTHER 05/08/17 00:30 (Apresoline Inj) 20 mg Q4H PRN IV PUSH 05/13/17 11:15 05/21/17 02:57 (Norvasc) 10 mg DAILY PO 05/14/17 09:15 05/29/17 07:58 (Depakene Liq) 250 mg BID NG 05/16/17 11:00 05/29/17 07:59 Potassium Chloride/Dextrose 1,000 ml @ 70 mls/hr [id number] IV 05/17/17 23:45 05/29/17 03:27 (Free Water) 300 ml Q4HR G-TUBE 05/18/17 12:00 05/29/17 08:00 (Pepcid) 20 mg DAILY NG 05/18/17 09:00 05/29/17 07:59 (Keppra Liq) 1,000 mg Q12HR NG 05/18/17 09:00 05/29/17 08:00 (Neurontin Liq) 100 mg HS NG 05/18/17 21:00 05/28/17 20:34 (Lanoxin) 0.125 mg DAILY PO 05/20/17 09:00 05/29/17 07:58 (Coreg) 25 mg BID PO 05/19/17 21:00 05/29/17 07:57 (Trandate Inj) 10 mg Q1H PRN IV 05/19/17 13:15 (Haldol Inj) 5 mg Q4H PRN IV 05/20/17 18:45 (Roxicodone Intensol Liq) 5 mg Q4H PO 05/20/17 19:00 05/29/17 06:33 (Cardizem) 30 mg Q6HR PO 05/20/17 18:45 05/29/17 05:59 (Altace) 2.5 mg DAILY PO 05/23/17 09:00 05/29/17 07:58 (D50w (Vial) Inj) 25 ml UNSCH PRN IV PUSH 05/26/17 13:15 (NovoLIN R SUPPLEMENTAL SCALE) 1 Q4HR SQ 05/26/17 16:00 05/29/17 08:00 Vital Signs / I&O Vital Signs Date Time Temp Pulse Resp B/P (MAP) Pulse Ox O2 Delivery O2 Flow Rate FiO2 05/29/17 09:06 92 35 05/29/17 08:00 35 05/29/17 08:00 74 05/29/17 08:00 98.1 74 22 133/60 (84) 94 05/29/17 06:00 74 05/29/17 04:39 96 35 05/29/17 04:00 35 05/29/17 04:00 98.7 72 19 124/60 (81) 94 05/29/17 04:00 72 05/29/17 02:00 75 05/29/17 00:46 96 35 05/29/17 00:00 35 05/29/17 00:00 68 05/29/17 00:00 98.5 68 17 114/56 (75) 96 05/28/17 22:00 66 05/28/17 21:22 95 35 05/28/17 20:00 74 05/28/17 20:00 98.5 74 25 129/60 (83) 100 05/28/17 20:00 35 05/28/17 18:00 75 05/28/17 17:47 95 35 05/28/17 17:35 20 05/28/17 16:00 99.2 74 22 121/59 (79) 95 05/28/17 16:00 74 05/28/17 16:00 35 05/28/17 13:12 100 35 05/28/17 12:00 99.4 66 20 109/55 (73) 99 05/28/17 12:00 69 05/28/17 12:00 35 I/O 05/28/17 05/28/17 05/28/17 05/29/17 05/29/17 05/29/17 07:00 15:00 23:00 07:00 15:00 23:00 Intake Total 2068 ml 2314 ml 2016 ml Output Total 1420 ml 700 ml 2500 ml Balance 648 ml 1614 ml -484 ml Intake IV Total 1635 ml 874 ml 725 ml Tube Feeding 433 ml 540 ml 571 ml Tube Irrigant 120 ml Other 900 ml 600 ml Output Urine Total 420 ml 500 ml 1500 ml Stool Total 1000 ml 200 ml 1000 ml Physical Exam GENERAL: SKIN: Warm and dry. HEAD: Normocephalic. EYES: No scleral icterus. No injection or drainage. NECK: Supple, trachea midline. No JVD or lymphadenopathy. CARDIOVASCULAR: Regular rate and rhythm without murmurs, gallops, or rubs. RESPIRATORY: Breath sounds equal bilaterally. No accessory muscle use. GASTROINTESTINAL: Abdomen soft, non-tender, nondistended. MUSCULOSKELETAL: No cyanosis, or edema. BACK: Nontender without obvious deformity. No CVA tenderness. Assessment and Plan Problem List: (1) CAD (coronary artery disease) ICD Codes: I25.10 - Atherosclerotic heart disease of [place] coronary artery without angina pectoris (2) CHRONIC OBSTRUCTIVE PULMON DISEASE W ACUTE LOWER RESP INFCT ICD Codes: J44.0 - CHRONIC OBSTRUCTIVE PULMON DISEASE W ACUTE LOWER RESP INFCT Status: Acute (3) Cardiomyopathy ICD Codes: I42.9 - Cardiomyopathy Status: Acute (4) Cardiopulmonary arrest ICD Codes: I46.9 - Cardiac arrest, cause unspecified Status: Acute (5) Diabetes mellitus ICD Codes: E11.9 - Type 2 diabetes mellitus without complications Status: Acute Assessment and Plan 1.) Cardiomyopathy - euvolemic, continue coreg 25 mg bid, start altace 2.5 mg qd , kcg=620 05/23/17 2.) CAD - continue aspirin, statin held due to shock liver and elevated lfts 3.) s/p trach, awaiting senior care care, s/p peg 05/25/17 4.) PAF - continue dig, cardizem, coreg, defer ac determination to neuro Aguila Early MD May 29, 2017 10:17
[2017-05-29] MEDS: GABAPENTIN 250 MG/5 ML UDC NG SCH (20:54)
[2017-05-29] MEDS: HYOSCYAMINE SOLN 0.125 MG/ML 15 ML BTL PEG SCH (22:23)
[2017-05-30] VITALS (23 sets, daily range): BP systolic 119–146; BP diastolic 57–79; PULSE 68–87; RESP 19–23; TEMP 97.6–99.9; O2SAT 93–100
[2017-05-30] MEDS: DILTIAZEM HCL 30 MG TAB PO SCH ×3 (00:01→11:38)
[2017-05-30] MEDS: oxyCODONE HCL ORAL CONC 5 MG/0.25 ML SYRINGE PO SCH ×4 (02:32→15:00)
[2017-05-30] MEDS: FREE WATER G-TUBE SCH ×5 (03:59→16:00)
[2017-05-30] MEDS: INSULIN NovoLIN REGULAR SUPPLEMENTAL SCALE SQ SCH ×5 (03:59→16:00)
[2017-05-30] MEDS: CHLORHEXIDINE GLUCONATE 2 % 1 PACK (2 CLOTHS) TOP SCH (04:00)
[2017-05-30] MEDS: RESP: ALBUTEROL 2.5 MG/3 ML NEB (PRN) INH (05:10)
[2017-05-30] MEDS: HYOSCYAMINE SOLN 0.125 MG/ML 15 ML BTL PEG SCH ×3 (05:54→22:00)
[2017-05-30] MEDS: CHLORHEXIDINE 0.12% (ORAL KIT) 15 ML CUP MT SCH ×2 (08:00→20:00)
[2017-05-30] MEDS: VALPROIC ACID SYRUP 250 MG/5 ML UDC NG SCH ×2 (08:29→21:00)
[2017-05-30] MEDS: ARTIFICIAL TEARS OPTH OINT 3.5 APPLIC/3.5 GM TUBO EACH EYE SCH ×2 (08:29→21:00)
[2017-05-30] MEDS: SODIUM CHLORIDE 0.9% FLUSH 10 ML FLUSH IV FLUSH SCH ×2 (08:29→21:00)
[2017-05-30] MEDS: FAMOTIDINE 20 MG TAB NG SCH (08:30)
[2017-05-30] MEDS: DIGOXIN 0.125 MG TAB PO SCH (08:30)
[2017-05-30] MEDS: CARVEDILOL 12.5 MG TAB PO SCH (08:30)
[2017-05-30] MEDS: ASPIRIN EC 81 MG TABEC PO SCH (08:30)
[2017-05-30] MEDS: RAMIPRIL 2.5 MG CAP PO SCH (08:30)
[2017-05-30] MEDS: DOCUSATE SODIUM 50 MG/SENNA 8.6 MG TAB PO SCH ×2 (08:31→21:00)
[2017-05-30] MEDS: LACTULOSE SYRUP 20 GM/30 ML CUP OG-TUBE SCH (08:31)
[2017-05-30] MEDS: levETIRAcetam 500 MG/5 ML UDC NG SCH ×2 (08:31→21:00)
--- NOTE | 2017-05-30 14:31 | PD.CARD.PN ---
Subjective Subjective Remarks s/p tracheotomy, unresponsive off sedation Objective Medications Current Medications Medications (Trade) Dose Ordered Sig/Scarlett Route Start Time Stop Time Status Last Admin (Tylenol) 650 mg Q6H PRN PO 05/06/17 23:30 05/27/17 23:03 (Zofran Inj) 4 mg Q6H PRN IV PUSH 05/06/17 23:30 (Albuterol Neb) 2.5 mg Q2HR NEB PRN INH 05/06/17 23:30 05/30/17 05:10 Miscellaneous Information 1 Q361D XX 05/06/17 23:30 (Chlorhexidine 2% Cloth) 3 pack Taper DAILY@04 TOP 05/07/17 04:00 05/03/18 03:59 05/30/17 04:00 (Chlorhexidine 2% Cloth) 3 pack UNSCH PRN TOP 05/06/17 23:30 (Aggie-Colace) 1 tab BID PO 05/07/17 09:00 05/30/17 08:31 (Milk Of Magnesia Liq) 30 ml Q12H PRN PO 05/06/17 23:30 (Senokot) 17.2 mg Q12H PRN PO 05/06/17 23:30 (Dulcolax Supp) 10 mg DAILY PRN RECTAL 05/06/17 23:30 (Peridex 0.12% Liq) 15 ml BID@08,20 MT 05/07/17 08:00 05/30/17 08:00 (NS Flush) 2 ml BID IV FLUSH 05/07/17 09:00 05/30/17 08:29 (NS Flush) 2 ml UNSCH PRN IV FLUSH 05/07/17 04:30 (Heparin Inj) 5,000 units Q12H SQ 05/07/17 05:00 Future Hold 05/22/17 04:27 (Lacrilube Opht Oint) 1 applic Q12HR EACH EYE 05/07/17 09:00 05/30/17 08:29 (Ecotrin Ec) 81 mg DAILY PO 05/08/17 09:00 05/30/17 08:30 (Lactulose Liq) 30 ml DAILY OG-TUBE 05/07/17 09:00 05/30/17 08:31 (Glucagon Inj) 1 mg UNSCH PRN OTHER 05/08/17 00:30 (Apresoline Inj) 20 mg Q4H PRN IV PUSH 05/13/17 11:15 05/21/17 02:57 (Norvasc) 10 mg DAILY PO 05/14/17 09:15 05/30/17 08:30 (Depakene Liq) 250 mg BID NG 05/16/17 11:00 05/30/17 08:29 (Free Water) 300 ml Q4HR G-TUBE 05/18/17 12:00 05/30/17 11:38 (Pepcid) 20 mg DAILY NG 05/18/17 09:00 05/30/17 08:30 (Keppra Liq) 1,000 mg Q12HR NG 05/18/17 09:00 05/30/17 08:31 (Neurontin Liq) 100 mg HS NG 05/18/17 21:00 05/29/17 20:54 (Lanoxin) 0.125 mg DAILY PO 05/20/17 09:00 05/30/17 08:30 (Coreg) 25 mg BID PO 05/19/17 21:00 05/30/17 08:30 (Trandate Inj) 10 mg Q1H PRN IV 05/19/17 13:15 (Haldol Inj) 5 mg Q4H PRN IV 05/20/17 18:45 (Roxicodone Intensol Liq) 5 mg Q4H PO 05/20/17 19:00 05/30/17 13:40 (Cardizem) 30 mg Q6HR PO 05/20/17 18:45 05/30/17 11:38 (Altace) 2.5 mg DAILY PO 05/23/17 09:00 05/30/17 08:30 (D50w (Vial) Inj) 25 ml UNSCH PRN IV PUSH 05/26/17 13:15 (NovoLIN R SUPPLEMENTAL SCALE) 1 Q4HR SQ 05/26/17 16:00 05/30/17 11:38 (Levsin Liq) 0.25 mg Q8HR PEG 05/29/17 22:00 05/30/17 13:40 Vital Signs / I&O Vital Signs Date Time Temp Pulse Resp B/P (MAP) Pulse Ox O2 Delivery O2 Flow Rate FiO2 05/30/17 14:00 77 05/30/17 12:07 100 35 05/30/17 12:00 99.6 05/30/17 12:00 78 05/30/17 12:00 35 05/30/17 12:00 78 22 135/62 (86) 97 05/30/17 10:01 71 05/30/17 10:00 71 05/30/17 09:00 75 05/30/17 09:00 75 23 143/76 (98) 100 05/30/17 08:37 100 35 05/30/17 08:00 71 20 123/60 (81) 100 05/30/17 08:00 71 05/30/17 08:00 98.9 05/30/17 08:00 35 05/30/17 06:00 76 05/30/17 05:13 97 35 05/30/17 04:00 35 05/30/17 04:00 99.9 71 22 123/79 (94) 97 05/30/17 04:00 71 05/30/17 02:00 68 05/30/17 00:28 94 35 05/30/17 00:00 72 05/30/17 00:00 99.7 72 21 119/57 (77) 93 05/30/17 00:00 35 05/29/17 22:00 67 05/29/17 21:28 96 35 05/29/17 20:00 35 05/29/17 20:00 71 05/29/17 20:00 99.1 71 21 117/58 (77) 96 05/29/17 18:00 72 05/29/17 16:29 97 35 05/29/17 16:00 98.7 75 20 129/62 (84) 94 05/29/17 16:00 75 05/29/17 16:00 35 I/O 05/29/17 05/29/17 05/29/17 05/30/17 05/30/17 05/30/17 07:00 15:00 23:00 07:00 15:00 23:00 Intake Total 2016 ml 2226 ml 1225 ml Output Total 2500 ml 2500 ml 1500 ml Balance -484 ml -274 ml -275 ml Intake IV Total 725 ml 787 ml Tube Feeding 571 ml 539 ml 475 ml Tube Irrigant 120 ml 150 ml Other 600 ml 900 ml 600 ml Output Urine Total 1500 ml 2300 ml 1450 ml Stool Total 1000 ml 200 ml 50 ml Physical Exam GENERAL: SKIN: Warm and dry. HEAD: Normocephalic. EYES: No scleral icterus. No injection or drainage. NECK: Supple, trachea midline. No JVD or lymphadenopathy. CARDIOVASCULAR: Regular rate and rhythm without murmurs, gallops, or rubs. RESPIRATORY: Breath sounds equal bilaterally. No accessory muscle use. GASTROINTESTINAL: Abdomen soft, non-tender, nondistended. MUSCULOSKELETAL: No cyanosis, or edema. BACK: Nontender without obvious deformity. No CVA tenderness. Assessment and Plan Problem List: (1) CAD (coronary artery disease) ICD Codes: I25.10 - Atherosclerotic heart disease of [place] coronary artery without angina pectoris (2) CHRONIC OBSTRUCTIVE PULMON DISEASE W ACUTE LOWER RESP INFCT ICD Codes: J44.0 - CHRONIC OBSTRUCTIVE PULMON DISEASE W ACUTE LOWER RESP INFCT Status: Acute (3) Cardiomyopathy ICD Codes: I42.9 - Cardiomyopathy Status: Acute (4) Cardiopulmonary arrest ICD Codes: I46.9 - Cardiac arrest, cause unspecified Status: Acute (5) Diabetes mellitus ICD Codes: E11.9 - Type 2 diabetes mellitus without complications Status: Acute Assessment and Plan 1.) Cardiomyopathy - euvolemic, continue coreg 25 mg bid, start altace 2.5 mg qd , lot=144 05/23/17 2.) CAD - continue aspirin, statin held due to shock liver and elevated lfts 3.) s/p trach, awaiting nursing home care, s/p peg 05/25/17 4.) PAF - continue dig, cardizem, coreg, defer ac determination to neuro Aguila Early MD May 30, 2017 14:31
--- NOTE | 2017-05-30 14:34 | HHI.HCPN ---
Reason for visit a. To assist with evaluation and management of symptoms including: Encephalopathy. b. To assist medical decision maker(s) with: better understanding of current medical conditions; weighing benefits/burdens of medical treatment options; making medical treatment decisions. . Subjective/Interval History Patient seen and examined in ICU. No family at bedside. The patient remains unresponsive off sedation. Eyes open, does not track or blink to threat. Does not respond to voice or painful stimuli today. Tmax 99.6. Vital signs stable. Remains on vent, FiO2 35%. No new imaging or labs. No evidence of neurologic improvement. . Family/friend interactions Spoke with Jitendra bray phone. She tells me the family is planning to take patient off of life support on 06/06/17. I advised that patient is being looked at by [facility] and could be transferred if accepted prior to the . She verbalizes understanding. She tells me the family will be coming to [facility] on the for " arrangements." I advised patient may not right away. I suspect if they elect comfort if transferred to [facility] they would be able to honor these wishes. . Advance Directives Living Will: Never completed Health Care Surrogate: Never completed Durable Power of Chief Operating Engineer: Never completed Advance Directive Specifics Health Care Surrogate(s): No written advanced directives. The patient is unmarried and has just one child , daughter Jitendra who lives in [place]. Patient is not capacitated and very unlikely to regain capacity for decision-making, According to [place] Statutes, health care proxy decision making falls to Jitendra Garcia. . Significant change in goals: Alternate code: Intubation Only. Spoke with Jitendra bray phone. She tells me the family is planning to take patient off of life support on . I advised that patient is being looked at by [facility] and could be transferred if accepted prior to the . She verbalizes understanding. She tells me the family will be coming to [facility] on the for " arrangements." I advised patient may not right away. I suspect if they elect comfort if transferred to [facility] they would be able to honor these wishes. Objective Vital Signs Date Time Temp Pulse Resp B/P (MAP) Pulse Ox O2 Delivery O2 Flow Rate FiO2 05/30/17 14:00 77 05/30/17 12:07 100 35 05/30/17 12:00 99.6 05/30/17 12:00 78 05/30/17 12:00 35 05/30/17 12:00 78 22 135/62 (86) 97 05/30/17 10:01 71 05/30/17 10:00 71 05/30/17 09:00 75 05/30/17 09:00 75 23 143/76 (98) 100 05/30/17 08:37 100 35 05/30/17 08:00 71 20 123/60 (81) 100 05/30/17 08:00 71 05/30/17 08:00 98.9 05/30/17 08:00 35 05/30/17 06:00 76 05/30/17 05:13 97 35 05/30/17 04:00 35 05/30/17 04:00 99.9 71 22 123/79 (94) 97 05/30/17 04:00 71 05/30/17 02:00 68 05/30/17 00:28 94 35 05/30/17 00:00 72 05/30/17 00:00 99.7 72 21 119/57 (77) 93 05/30/17 00:00 35 05/29/17 22:00 67 05/29/17 21:28 96 35 05/29/17 20:00 35 05/29/17 20:00 71 05/29/17 20:00 99.1 71 21 117/58 (77) 96 05/29/17 18:00 72 05/29/17 16:29 97 35 05/29/17 16:00 98.7 75 20 129/62 (84) 94 05/29/17 16:00 75 05/29/17 16:00 35 Intake & Output 05/30/17 05/30/17 07:00 19:00 Intake Total 1225 ml Output Total 1500 ml Balance -275 ml Tube Feeding 475 ml Tube Irrigant 150 ml Other 600 ml Output Urine Total 1450 ml Stool Total 50 ml Physical Exam CONSTITUTIONAL/GENERAL: This is an adequately nourished patient, on mech vent off all sedation. TUBES: tracheostomy to vent. PEG, PIV, catheter. Bite block in mouth. EYES: eyes closed. CARDIOVASCULAR: Regular rate and rhythm without murmurs, gallops, or rubs. RESPIRATORY/CHEST: Unlabored respirations. Thick oral secretions noted. GASTROINTESTINAL: PEG tube in place. Tolerating tube feeding. Soft, obese. Bowel sounds present. MUSCULOSKELETAL: Extremities edema. No mottling or clubbing. NEUROLOGICAL: Unresponsive to my voice or exam. No withdraw to pain on extremities. PSYCHIATRIC: Unresponsive. . Diagnostic Tests Result Diagram: 05/26/17 1525 05/26/17 1520 Microbiology Microbiology Date/Time Source Procedure Growth Status 05/26/17 15:25 Blood Peripheral Aerobic Blood Culture - Preliminary NO GROWTH IN 4 DAYS Resulted 05/26/17 15:25 Blood Peripheral Anaerobic Blood Culture - Preliminary NO GROWTH IN 4 DAYS Resulted 05/26/17 13:30 Sputum Endotracheal Gram Stain - Final Complete 05/26/17 13:30 Sputum Endotracheal Sputum Culture - Final MODERATE GROWTH NORMAL RESPIRATORY JORDEN Complete 05/26/17 16:50 Urine Catheterized Urine Urine Culture - Final Lucinda Albicans Complete Imaging Last Impressions Chest X-Ray 05/26/17 0000 Signed Impressions: Service Date/Time: May 13:34 - CONCLUSION: 1. Cardiomegaly. 2. No acute focal pulmonary infiltrate or pulmonary vascular congestion. David Ramirez MD Gastrostomy Tube Placement 05/25/17 0000 Signed Impressions: Service Date/Time: Thursday, May 25, 2017 13:18 - CONCLUSION: Uncomplicated gastrojejunostomy tube placement as above. Tyler Mcclelland MD Abdomen Ultrasound 05/07/17 0000 Signed Impressions: Service Date/Time: Sunday, May 07, 2017 14:19 - CONCLUSION: 1. Echogenic liver compatible with fatty infiltration or hepatocellular disease. 2. Cholecystectomy Laith Coe MD Head CT [id number]/06/172123 Signed Impressions: Service Date/Time: Sunday, May 07, 2017 03:14 - CONCLUSION: Normal examination. Noé Ybarra MD CT Angiography 05/06/17 0000 Signed Impressions: Service Date/Time: Sunday, May 07, 2017 03:21 - CONCLUSION: 1. No pulmonary embolus. 2. Bibasilar areas of consolidation or atelectasis being worse on the left. There are minimal bilateral pleural effusions. Noé Ybarra MD . Procedures * 05/25/17- PEG tube * 05/20/17 - tracheostomy/ bronchoscopy. * 05/07/17 - Intubation * 05/07 - Bilateral femoral arterial lines and left femoral heat exchange catheter . Assessment and Plan Disease Oriented Problem List: (1) anoxic brain injury, severe encephalopathy (2) PEA cardiac arrest 05/06/17 (3) respiratory failure s/p cardiac arrest and resuscitation (4) history of CHF, ejection fraction 15-20% in 2013 (5) coronary artery disease, moderate disease on cath in 2013 (6) insulin-dependent diabetes (7) COPD, moderate (8) history of seizure disorder (9) unspecified but significant psychiatric illness, disabling (10) hyperlipidemia (11) hypertension (12) GERD (13) peripheral neuropathy Symptom Scale: (1) dyspnea 0-10 Scale: Unable to quantify Comment: [facility] . (2) encephalopathy 0-10 Scale: Unable to quantify Comment: remains unresponsive. Pertinent Non-Medical Issues Psychosocial: Unmarried, 1 daughter in [place], disabled via psychiatric diagnoses for many years. Was living alone. Spiritual: Unaffiliated druze Legal: The patient is unmarried and has just one child, katarina Edward in [place]. The patient is very unlikely to regain capacity for decision-making, so Patty Lozano is the proxy decision-maker. Ethical issues impacting care: None. . Important Contacts Patient's daughter/HCP Cheyanne Garcia [phone] . Prognosis The patient's prognosis is extremely poor. She has underlying moderate or severe pulmonary and cardiac disease, and now has an apparent significant anoxic brain injury. . Code Status: Alternative Code (intubation only) Plan * ALTERNATE CODE, intubation only per request of daughter 05/10/17. * DECISION-MAKING: No written advanced directives. The patient is unmarried and has just one child, daughter Jitendra who lives in [place]. Patient is not capacitated and very unlikely to regain capacity for decision-making, According to [place] Statutes, health care proxy decision making falls to Jitendra Garcia. * GOALS: Spoke with daughterJitendra phone. She tells me the family is planning to take patient off of life support on 06/06/17. I advised that patient is being looked at by [facility] hospital and could be transferred if accepted prior to the . She verbalizes understanding. She tells me the family will be coming to town on the for " arrangements." I advised patient may not right away. I suspect if they elect comfort if transferred to [facility] they would be able to honor these wishes. * SYMPTOMS: No evidence of pain, dyspnea, anxiety at this time. No seizures noted. Encephalopathy: due to anoxic brain injury, seizure, no evidence of neurologic recovery. No new medication recommendations at this time. * Palliative Care will continue to follow the patient during this hospitalization. . Attestation To help prompt me to consider important information that might be impacting today's encounter and assessment, information from prior notes written by myself or my colleagues may have been "brought forward" into today's note. My signature on this note, however, is an attestation that I personally performed the exam, history, and/or decision-making noted today, and, unless otherwise indicated, the interactions with patient, family, and staff as well as the review of records all occurred today. I also attest that the listed assessment and stated plan reflect my best clinical judgment today based on the combination of historical information, prior notes, and today's exam/ interactions. When time spent is documented, it refers only to time spent today by the signer, or if indicated, combined time spent today by collaborating physician/nurse practitioner. Isadora Zhao May 30, 2017 14:34
[2017-05-30] MEDS: fentaNYL DRIP 250 ML IV PRN (17:37)
--- NOTE | 2017-05-30 17:59 | HHI.CCPN ---
Subjective Remarks/Hospital Course 56-year-old female with past medical history of hypertension, chronic systolic heart failure, diabetes, COPD bipolar disorder, seizure disorder who presented to [facility] emergency department via [facility] following cardiac arrest. [facility] was originally called for shortness of breath and when they arrived patient was unresponsive and in PEA. Combitube was placed. CPR was initiated and patient was administered epinephrine 4, 1 amp bicarbonate, Narcan 2 mg prior to arrival via left tibial I/O. Blood glucose was 334. Exact duration of prehospital CPR is unclear. Combitube was removed and she was intubated upon arrival. Patient had ROSC 5 minutes after arrival. She received additional epinephrine 2 in the ED. She also received 1 L normal saline bolus, vancomycin, Zosyn in the ED. Critical care medicine is consulted for admission. EKG has no acute ischemia. SUBJ 05/07: Intubated sedated neuromuscularly paralyzed. Induced hypothermia initiated at 7 AM, 2-D echo shows EF 25-30%, mild to moderate MR. Serial troponins negative 05/08: Remains neuromuscularly paralyzed. Hypothermia will be completed by the known and rewarming was started. Remains off inotropes and pressors 05/09: Hypothermia protocol completed, placed overnight on Versed also in addition to propofol and fentanyl for tachycardia and asynchrony. Currently patient while on sedation do not open eyes with very slight withdrawal to pain 05/10: Developed Afib with RVR yesterday with HR in 200's DC cardioverted at night by Dr. Chu. Placed back on Versed. RN reports paroxysmal A fib. EEG pending at this time for subclinical sz. EEG 05/07 burst suppression pattern. Neuro prognosis poor 05/11: No neuro improvement. Creat worsening, nephrology consulted. EEG severe encephalopathy consistent with anoxic injury. Palliative care is following 05/12: There had been no improvement in neuro status after completion of code cool approximately 4 days ago. Patient has not shown not seen any signs of improvement. Palliative care met with family. Patient is developing multiorgan dysfunction syndrome. Daughter wants withdrawal of life support but wants to wait until some other family members can visit from [place] 05/13: No meaningful recovery yet. Opens eyes partially to pain. Weakly withdraws all extremities to pain. UO 1.8L in 24 hours. Family considering withdrawal of life support today, considering comorbidities and poor neuro recovery after cooling 05/14: Eyes are spontaneously open but with upward gaze. No tracking no response to threat. Withdraws bilateral upper extremity to pain. Had been off sedation more than 4 days 05/15: Neuro exam remains unchanged, even less eye-opening and withdrawal. Fever up to 103.5. Pancultured. Continue on vancomycin and Zosyn until cultures are back. 05/16: no improvements or changes to mental status. persistent encephalopathy. poor prognosis. family wants to wait until other family can be present. palliative care clarifying goals. 05/17: no changes to poor mental status. still awaiting family. hypernatremia worsening. nephrology following. Cr improving though; ahsan post-ATN diuresis. 05/18: Tmax 98.9. Positive gag. Positive corneal reflex. Blinks. Does not withdraw to pain. Went to A. fib with RVR the today requiring synchronous cardioversion with 200 J currently in sinus tachycardia. Given digoxin 0.5 mg IV now. 05/19: Afebrile. Has not brain injury. Daughter yesterday she says she was the patient trach and PEG. Started on desmopressin per nephrology yesterday. Sodium still remains elevated. 05/20: no improvements in severe encephalopathy. Daughter continues to want aggressive treatment. will proceed with trach and PEG, and pursue long-term placement. 05/21: no improvements in neuro exam. s/p trach yesterday. GI consulted for PEG. needs placement. sodium downtrending and improving. 05/22: no improvements or changes. on SBT this AM on my eval. persistently encephalopathic. needs placement. Sodium derangements slowly improving. 05/23: PEG planned for today. weaning vent slowly. metabolic derangements improving. Cr downtrending. awaiting placement. 05/24: failed SBT yesterday for tachypnea. failed again today for persistent tachypnea and low tidal volumes. continue trying daily sbt's. 05/25: again attempted to wean pressure support and failed weaning attempt. no other acute issues. no indication for inpatient admission at this time. Needs LTAC for aggressive pulmonary rehab and weaning, but insurance denied. 05/26: failed weaning yesterday for weakness, tachypnea. new fever today. will obtain u/a, CXR, cultures. nontoxic appearing. will also draw procalcitonin level. nontoxic appearing and no other change in vital signs. PEG placed yesterday. 05/27: additional weaning attempts failed today. needs LTAC. resubmitted insurance authorization today, but no decision made. no indication for inpatient admission at this time, but no authorization to move. 05/28: no changes or improvements. still awaiting second authorization attempt to get to LTAC. 05/29: no changes. afebrile. will again try daily weaning attempts. slow progress. needs LTAC. Subjective 05/30: no improvements in mental status. Palliative service and I called family today to discuss goals of care. Patient was approved to go to LTAC, but now family wants to pursue withdraw of care and terminal wean. However, when discussing this with the family, they want to put off withdraw of care until . I discussed this at length with the family and I expressed my concerns that the patient is suffering and at times grimaces to turning, and waiting more time with aggressive goals when the family has already decided the end result is to withdraw care, would not be in the patient's best interest. They are resistant to any discussion about moving this date earlier. We did agree that anything that increases the patient's pain, including needle sticks, lab draws, or further testing they would not want. they do feel strongly about keeping tube feeding and keeping her on the ventilator. they are ok if I start some opiate sedation medication to help with any objective signs of pain. They agree we should treat fevers with tylenol and not antibiotics, and are ok with "no escalation of care", including no vasopressors or higher level medications. will stop all medicines that are not directly related to patient comfort. however, once again, they will not allow us to remove mechanical ventilation or feeding until 06/06 per their direct expressed wishes. Objective Vital Signs Date Time Temp Pulse Resp B/P (MAP) Pulse Ox O2 Delivery O2 Flow Rate FiO2 05/30/17 16:06 87 05/30/17 16:06 21 139/63 (88) 100 05/30/17 16:00 99.7 05/30/17 16:00 35 Intake and Output 05/30/17 05/30/17 05/31/17 08:00 16:00 00:00 Intake Total 1225 ml Output Total 1500 ml Balance -275 ml Result Diagram: 05/26/17 1525 05/26/17 1520 Imaging Last Impressions Chest X-Ray 05/18/17 0000 Signed Impressions: Service Date/Time: Thursday, May 18, 2017 08:14 - CONCLUSION: ET tube tip that the upper thoracic level. Increasing left lower lung consolidation. Obi Barnes MD Abdomen Ultrasound 05/07/17 0000 Signed Impressions: Service Date/Time: Sunday, May 07, 2017 14:19 - CONCLUSION: 1. Echogenic liver compatible with fatty infiltration or hepatocellular disease. 2. Cholecystectomy Laith Coe MD Head CT 05/06/172123 Signed Impressions: Service Date/Time: Sunday, May 07, 2017 03:14 - CONCLUSION: Normal examination. Noé Ybarra MD CT Angiography 05/06/17 0000 Signed Impressions: Service Date/Time: Sunday, May 07, 2017 03:21 - CONCLUSION: 1. No pulmonary embolus. 2. Bibasilar areas of consolidation or atelectasis being worse on the left. There are minimal bilateral pleural effusions. Noé Ybarra MD Objective Remarks GENERAL: 56-year-old female who is trached, unresponsive. SKIN: Warm and dry. Well perfused HEAD: Atraumatic. Normocephalic. EYES: Bilateral exophthalmus. Pupils equal and round, reactive around 4 mm bilaterally. Positive corneal reflex ENT: No nasal bleeding or discharge. fresh tracheostomy in place without evidence of bleeding. NECK: Trachea midline. No JVD appreciated. No meningismus CARDIOVASCULAR: normal rate, regular rhythm. sinus by tele. RESPIRATORY: PSV 10/5. fio2 35%, tachypneic. equal chest rise. GASTROINTESTINAL: Abdomen protuberant soft. No appreciable tenderness , rebound or guarding. : Benoit catheter is in place MUSCULOSKELETAL: Extremities without significant peripheral edema NEUROLOGICAL: Blinks.. Minimal partial eye opening to pain. Slight withdrawal to pain in all 4 ext upper extremities more than lower. Pupils as above. Positive gag. A/P Problem List: (1) Cardiac arrest ICD Code: I46.9 - Cardiac arrest, cause unspecified Status: Resolved (2) Anoxic-ischemic encephalopathy ICD Code: G93.1 - Anoxic brain damage, not elsewhere classified; I67.82 - Cerebral ischemia Status: Chronic (3) Chronic systolic heart failure ICD Code: I50.22 - Chronic systolic (congestive) heart failure Status: Chronic (4) Exophthalmos of both eyes ICD Code: H05.20 - Unspecified exophthalmos Status: Chronic (5) HTN (hypertension) ICD Code: I10 - Essential (primary) hypertension Status: Chronic (6) HLD (hyperlipidemia) ICD Code: E78.5 - Hyperlipidemia, unspecified Status: Chronic (7) Cardiogenic shock ICD Code: R57.0 - Cardiogenic shock Status: Resolved (8) Acute respiratory failure with hypercapnia ICD Code: J96.02 - Acute respiratory failure with hypercapnia Status: Chronic (9) Obesity (BMI 30-39.9) ICD Code: E66.9 - Obesity, unspecified Status: Chronic (10) CHF (congestive heart failure) ICD Code: I50.9 - CHF (congestive heart failure) Status: Resolved (11) Bipolar disorder ICD Code: F31.9 - Bipolar affective disorder Status: Chronic (12) COPD (chronic obstructive pulmonary disease) ICD Code: J44.9 - Chronic obstructive pulmonary disease Status: Chronic (13) Tobacco abuse ICD Code: Z72.0 - Tobacco use Status: Chronic Assessment and Plan Assessment: 56yF with severe hypoxic-ischemic encephalopathy. poor prognosis. family wants aggressive care. s/p trach and PEG. we have been attempting to wean pressure on CPAP but unable given poor tidal volumes and tachypnea. Now family wishes to withdraw, but wait until 06/06 to formally withdraw care. I shared my professional opinion that I believe she is suffering and I do not think it is in the patient's best interest to continue this course of action until 06/06, but they are firm with that date. for now, we have agreed to pursue a "no escalation of care" and stop anything that does not involve patient symptoms and comfort. - qshift vital signs - fentanyl drip at 250 mcg/min to address pain/suffering concerns. patient grimaces on turning - d/c anything that causes pain, including lab draws, SQ medications with needles, medications not involved in symptom management. - no escalation of care - keep tube feeds and mechanical ventilation at family's insistence. I did express to the family that I would continue to call them and update them regarding her symptom control, and although this was an agreement we have come to, I still insist that I do not think delaying full comfort and palliative extubation is in the patient's best interest. Milena Zhao with the palliative care service was a part of the conversation and agrees with my assessment, as well as our understanding of moving forward with the plan of care. Palliative will continue to follow along. Acute anoxic encephalopathy, severe Bipolar disorder Exophthalmus Acute hypercapnic respiratory failure COPD Tobacco abuse s/p PEA cardiac arrest Post cardiac arrest syndrome with shock (resolved) Afib with RVR - resolved. Chronic systolic heart failure with ejection fraction 15-20% (25-30 on echo) Nonobstructive Coronary artery disease Essential Hypertension, uncontrolled Hyperlipidemia GERD Transaminitis, probable ischemic hepatopathy. High fever, sepsis Candiduria Bacteremia with strep viridans, Coag neg staph, pleomorphic GPR Diabetes mellitus with acute hyperglycemia ALT CODE. Palliative care following. Prognosis appears very poor. Problem Qualifiers (1) HTN (hypertension): Qualified Codes: I10 - Essential (primary) hypertension Luis Manuel Melvin MD May 30, 2017 17:59
[2017-05-31] VITALS (20 sets, daily range): BP systolic 111–136; BP diastolic 57–62; PULSE 79–106; RESP 17–25; TEMP 98.9–99.5; O2SAT 90–100
[2017-05-31] MEDS: CHLORHEXIDINE GLUCONATE 2 % 1 PACK (2 CLOTHS) TOP SCH (00:49)
[2017-05-31] MEDS: fentaNYL DRIP 250 ML IV PRN ×2 (02:16→12:01)
[2017-05-31] MEDS: HYOSCYAMINE SOLN 0.125 MG/ML 15 ML BTL PEG SCH ×3 (06:00→22:00)
[2017-05-31] MEDS: CHLORHEXIDINE 0.12% (ORAL KIT) 15 ML CUP MT SCH ×2 (08:26→20:00)
[2017-05-31] MEDS: VALPROIC ACID SYRUP 250 MG/5 ML UDC NG SCH ×2 (08:26→21:00)
[2017-05-31] MEDS: SODIUM CHLORIDE 0.9% FLUSH 10 ML FLUSH IV FLUSH SCH ×2 (08:27→21:00)
[2017-05-31] MEDS: levETIRAcetam 500 MG/5 ML UDC NG SCH ×2 (08:27→21:00)
[2017-05-31] MEDS: DOCUSATE SODIUM 50 MG/SENNA 8.6 MG TAB PO SCH ×2 (08:27→21:00)
[2017-05-31] MEDS: ARTIFICIAL TEARS OPTH OINT 3.5 APPLIC/3.5 GM TUBO EACH EYE SCH ×2 (08:27→21:00)
--- NOTE | 2017-05-31 13:08 | HHI.CCPN ---
Subjective Remarks/Hospital Course 56-year-old female with past medical history of hypertension, chronic systolic heart failure, diabetes, COPD bipolar disorder, seizure disorder who presented to [facility] emergency department via [facility] following cardiac arrest. [facility] was originally called for shortness of breath and when they arrived patient was unresponsive and in PEA. Combitube was placed. CPR was initiated and patient was administered epinephrine 4, 1 amp bicarbonate, Narcan 2 mg prior to arrival via left tibial I/O. Blood glucose was 334. Exact duration of prehospital CPR is unclear. Combitube was removed and she was intubated upon arrival. Patient had ROSC 5 minutes after arrival. She received additional epinephrine 2 in the ED. She also received 1 L normal saline bolus, vancomycin, Zosyn in the ED. Critical care medicine is consulted for admission. EKG has no acute ischemia. SUBJ 05/07: Intubated sedated neuromuscularly paralyzed. Induced hypothermia initiated at 7 AM, 2-D echo shows EF 25-30%, mild to moderate MR. Serial troponins negative 05/08: Remains neuromuscularly paralyzed. Hypothermia will be completed by the known and rewarming was started. Remains off inotropes and pressors 05/09: Hypothermia protocol completed, placed overnight on Versed also in addition to propofol and fentanyl for tachycardia and asynchrony. Currently patient while on sedation do not open eyes with very slight withdrawal to pain 05/10: Developed Afib with RVR yesterday with HR in 200's DC cardioverted at night by Dr. Chu. Placed back on Versed. RN reports paroxysmal A fib. EEG pending at this time for subclinical sz. EEG 05/07 burst suppression pattern. Neuro prognosis poor 05/11: No neuro improvement. Creat worsening, nephrology consulted. EEG severe encephalopathy consistent with anoxic injury. Palliative care is following 05/12: There had been no improvement in neuro status after completion of code cool approximately 4 days ago. Patient has not shown not seen any signs of improvement. Palliative care met with family. Patient is developing multiorgan dysfunction syndrome. Daughter wants withdrawal of life support but wants to wait until some other family members can visit from [place] 05/13: No meaningful recovery yet. Opens eyes partially to pain. Weakly withdraws all extremities to pain. UO 1.8L in 24 hours. Family considering withdrawal of life support today, considering comorbidities and poor neuro recovery after cooling 05/14: Eyes are spontaneously open but with upward gaze. No tracking no response to threat. Withdraws bilateral upper extremity to pain. Had been off sedation more than 4 days 05/15: Neuro exam remains unchanged, even less eye-opening and withdrawal. Fever up to 103.5. Pancultured. Continue on vancomycin and Zosyn until cultures are back. 05/16: no improvements or changes to mental status. persistent encephalopathy. poor prognosis. family wants to wait until other family can be present. palliative care clarifying goals. 05/17: no changes to poor mental status. still awaiting family. hypernatremia worsening. nephrology following. Cr improving though; ahsan post-ATN diuresis. 05/18: Tmax 98.9. Positive gag. Positive corneal reflex. Blinks. Does not withdraw to pain. Went to A. fib with RVR the today requiring synchronous cardioversion with 200 J currently in sinus tachycardia. Given digoxin 0.5 mg IV now. 05/19: Afebrile. Has not brain injury. Daughter yesterday she says she was the patient trach and PEG. Started on desmopressin per nephrology yesterday. Sodium still remains elevated. 05/20: no improvements in severe encephalopathy. Daughter continues to want aggressive treatment. will proceed with trach and PEG, and pursue long-term placement. 05/21: no improvements in neuro exam. s/p trach yesterday. GI consulted for PEG. needs placement. sodium downtrending and improving. 05/22: no improvements or changes. on SBT this AM on my eval. persistently encephalopathic. needs placement. Sodium derangements slowly improving. 05/23: PEG planned for today. weaning vent slowly. metabolic derangements improving. Cr downtrending. awaiting placement. 05/24: failed SBT yesterday for tachypnea. failed again today for persistent tachypnea and low tidal volumes. continue trying daily sbt's. 05/25: again attempted to wean pressure support and failed weaning attempt. no other acute issues. no indication for inpatient admission at this time. Needs LTAC for aggressive pulmonary rehab and weaning, but insurance denied. 05/26: failed weaning yesterday for weakness, tachypnea. new fever today. will obtain u/a, CXR, cultures. nontoxic appearing. will also draw procalcitonin level. nontoxic appearing and no other change in vital signs. PEG placed yesterday. 05/27: additional weaning attempts failed today. needs LTAC. resubmitted insurance authorization today, but no decision made. no indication for inpatient admission at this time, but no authorization to move. 05/28: no changes or improvements. still awaiting second authorization attempt to get to LTAC. 05/29: no changes. afebrile. will again try daily weaning attempts. slow progress. needs LTAC. 05/30: no improvements in mental status. Palliative service and I called family today to discuss goals of care. Patient was approved to go to LTAC, but now family wants to pursue withdraw of care and terminal wean. However, when discussing this with the family, they want to put off withdraw of care until . I discussed this at length with the family and I expressed my concerns that the patient is suffering and at times grimaces to turning, and waiting more time with aggressive goals when the family has already decided the end result is to withdraw care, would not be in the patient's best interest. They are resistant to any discussion about moving this date earlier. We did agree that anything that increases the patient's pain, including needle sticks, lab draws, or further testing they would not want. they do feel strongly about keeping tube feeding and keeping her on the ventilator. they are ok if I start some opiate sedation medication to help with any objective signs of pain. They agree we should treat fevers with tylenol and not antibiotics, and are ok with "no escalation of care", including no vasopressors or higher level medications. will stop all medicines that are not directly related to patient comfort. however, once again, they will not allow us to remove mechanical ventilation or feeding until 06/06 per their direct expressed wishes. Subjective 05/31: family continues to resist withdraw of care, but refuse outside placement. after starting fentanyl, appears more comfortable. Objective Vital Signs Date Time Temp Pulse Resp B/P (MAP) Pulse Ox O2 Delivery O2 Flow Rate FiO2 05/31/17 12:00 97 05/31/17 12:00 50 05/31/17 11:00 22 111/57 (75) 90 05/31/17 10:04 T-piece 7.00 05/31/17 07:15 98.9 Intake and Output 05/31/17 05/31/17 06/01/17 08:00 16:00 00:00 Intake Total 1581 ml 250 ml Output Total 1650 ml Balance -69 ml 250 ml Imaging Last Impressions Chest X-Ray 05/18/17 0000 Signed Impressions: Service Date/Time: Thursday, May 18, 2017 08:14 - CONCLUSION: ET tube tip that the upper thoracic level. Increasing left lower lung consolidation. Obi Barnes MD Abdomen Ultrasound 05/07/17 0000 Signed Impressions: Service Date/Time: Sunday, May 07, 2017 14:19 - CONCLUSION: 1. Echogenic liver compatible with fatty infiltration or hepatocellular disease. 2. Cholecystectomy Laith Coe MD Head CT [id number] Signed Impressions: Service Date/Time: Sunday, May 07, 2017 03:14 - CONCLUSION: Normal examination. Noé Ybarra MD CT Angiography 05/06/17 0000 Signed Impressions: Service Date/Time: Sunday, May 07, 2017 03:21 - CONCLUSION: 1. No pulmonary embolus. 2. Bibasilar areas of consolidation or atelectasis being worse on the left. There are minimal bilateral pleural effusions. Noé Ybarra MD Objective Remarks GENERAL: 56-year-old female who is trached, unresponsive. SKIN: Warm and dry. Well perfused HEAD: Atraumatic. Normocephalic. EYES: Bilateral exophthalmus. Pupils equal and round, reactive around 4 mm bilaterally. Positive corneal reflex ENT: No nasal bleeding or discharge. fresh tracheostomy in place without evidence of bleeding. NECK: Trachea midline. No JVD appreciated. No meningismus CARDIOVASCULAR: normal rate, regular rhythm. sinus by tele. RESPIRATORY:trach collar, tachypneic. equal chest rise. GASTROINTESTINAL: Abdomen protuberant soft. No appreciable tenderness , rebound or guarding. : Benoit catheter is in place MUSCULOSKELETAL: Extremities without significant peripheral edema NEUROLOGICAL: Blinks.. Minimal partial eye opening to pain. Slight withdrawal to pain in all 4 ext upper extremities more than lower. Pupils as above. Positive gag. A/P Problem List: (1) Cardiac arrest ICD Code: I46.9 - Cardiac arrest, cause unspecified Status: Resolved (2) Anoxic-ischemic encephalopathy ICD Code: G93.1 - Anoxic brain damage, not elsewhere classified; I67.82 - Cerebral ischemia Status: Chronic (3) Chronic systolic heart failure ICD Code: I50.22 - Chronic systolic (congestive) heart failure Status: Chronic (4) Exophthalmos of both eyes ICD Code: H05.20 - Unspecified exophthalmos Status: Chronic (5) HTN (hypertension) ICD Code: I10 - Essential (primary) hypertension Status: Chronic (6) HLD (hyperlipidemia) ICD Code: E78.5 - Hyperlipidemia, unspecified Status: Chronic (7) Cardiogenic shock ICD Code: R57.0 - Cardiogenic shock Status: Resolved (8) Acute respiratory failure with hypercapnia ICD Code: J96.02 - Acute respiratory failure with hypercapnia Status: Chronic (9) Obesity (BMI 30-39.9) ICD Code: E66.9 - Obesity, unspecified Status: Chronic (10) CHF (congestive heart failure) ICD Code: I50.9 - CHF (congestive heart failure) Status: Resolved (11) Bipolar disorder ICD Code: F31.9 - Bipolar affective disorder Status: Chronic (12) COPD (chronic obstructive pulmonary disease) ICD Code: J44.9 - Chronic obstructive pulmonary disease Status: Chronic (13) Tobacco abuse ICD Code: Z72.0 - Tobacco use Status: Chronic Assessment and Plan Assessment: 56yF with severe hypoxic-ischemic encephalopathy. poor prognosis. family wants aggressive care. s/p trach and PEG. we have been attempting to wean pressure on CPAP but unable given poor tidal volumes and tachypnea. Now family wishes to withdraw, but wait until 06/06 to formally withdraw care. I shared my professional opinion that I believe she is suffering and I do not think it is in the patient's best interest to continue this course of action until 06/06, but they are firm with that date. for now, we have agreed to pursue a "no escalation of care" and stop anything that does not involve patient symptoms and comfort. - qshift vital signs - fentanyl drip at 250 mcg/min to address pain/suffering concerns. patient grimaces on turning - d/c anything that causes pain, including lab draws, SQ medications with needles, medications not involved in symptom management. - no escalation of care - keep tube feeds and mechanical ventilation at family's insistence. I did express to the family that I would continue to call them and update them regarding her symptom control, and although this was an agreement we have come to, I still insist that I do not think delaying full comfort and palliative extubation is in the patient's best interest. Milena Zhao with the palliative care service was a part of the conversation and agrees with my assessment, as well as our understanding of moving forward with the plan of care. Palliative will continue to follow along. Acute anoxic encephalopathy, severe Bipolar disorder Exophthalmus Acute hypercapnic respiratory failure COPD Tobacco abuse s/p PEA cardiac arrest Post cardiac arrest syndrome with shock (resolved) Afib with RVR - resolved. Chronic systolic heart failure with ejection fraction 15-20% (25-30 on echo) Nonobstructive Coronary artery disease Essential Hypertension, uncontrolled Hyperlipidemia GERD Transaminitis, probable ischemic hepatopathy. High fever, sepsis Candiduria Bacteremia with strep viridans, Coag neg staph, pleomorphic GPR Diabetes mellitus with acute hyperglycemia ALT CODE. Palliative care following. Prognosis appears very poor. Problem Qualifiers (1) HTN (hypertension): Qualified Codes: I10 - Essential (primary) hypertension Luis Manuel Melvin MD May 31, 2017 13:08
--- NOTE | 2017-05-31 13:25 | PD.CARD.PN ---
Subjective Subjective Remarks s/p tracheotomy, unresponsive off sedation Objective Medications Current Medications Medications (Trade) Dose Ordered Sig/Scarlett Route Start Time Stop Time Status Last Admin (Tylenol) 650 mg Q6H PRN PO 05/06/17 23:30 05/27/17 23:03 (Zofran Inj) 4 mg Q6H PRN IV PUSH 05/06/17 23:30 (Albuterol Neb) 2.5 mg Q2HR NEB PRN INH 05/06/17 23:30 05/30/17 05:10 Miscellaneous Information 1 Q361D XX 05/06/17 23:30 (Chlorhexidine 2% Cloth) Taper DAILY@04 TOP 05/07/17 04:00 05/03/18 03:59 05/31/17 00:49 (Chlorhexidine 2% Cloth) 3 pack UNSCH PRN TOP 05/06/17 23:30 (Aggie-Colace) 1 tab BID PO 05/07/17 09:00 05/31/17 08:27 (Milk Of Magnesia Liq) 30 ml Q12H PRN PO 05/06/17 23:30 (Dulcolax Supp) 10 mg DAILY PRN RECTAL 05/06/17 23:30 (Peridex 0.12% Liq) 15 ml BID@08,20 MT 05/07/17 08:00 05/31/17 08:26 (NS Flush) 2 ml BID IV FLUSH 05/07/17 09:00 05/31/17 08:27 (NS Flush) 2 ml UNSCH PRN IV FLUSH 05/07/17 04:30 (Lacrilube Opht Oint) 1 applic Q12HR EACH EYE 05/07/17 09:00 05/31/17 08:27 (Apresoline Inj) 20 mg Q4H PRN IV PUSH 05/13/17 11:15 05/21/17 02:57 (Depakene Liq) 250 mg BID NG 05/16/17 11:00 05/31/17 08:26 (Keppra Liq) 1,000 mg Q12HR NG 05/18/17 09:00 05/31/17 08:27 (Trandate Inj) 10 mg Q1H PRN IV 05/19/17 13:15 (Haldol Inj) 5 mg Q4H PRN IV 05/20/17 18:45 (Levsin Liq) 0.25 mg Q8HR PEG 05/29/17 22:00 05/31/17 06:00 Fentanyl Citrate 250 ml @ 25 mls/hr TITRATE PRN IV 05/30/17 17:30 05/31/17 12:01 Vital Signs / I&O Vital Signs Date Time Temp Pulse Resp B/P (MAP) Pulse Ox O2 Delivery O2 Flow Rate FiO2 05/31/17 12:00 97 05/31/17 12:00 50 05/31/17 11:00 96 22 111/57 (75) 90 05/31/17 11:00 96 05/31/17 10:04 94 T-piece 7.00 50 05/31/17 10:00 96 25 136/62 (86) 100 05/31/17 10:00 96 05/31/17 09:00 94 17 121/59 (79) 94 05/31/17 08:35 40 05/31/17 08:35 99 40 05/31/17 08:00 92 21 135/61 (85) 05/31/17 08:00 90 05/31/17 08:00 35 05/31/17 07:15 98.9 05/31/17 06:00 84 05/31/17 04:00 35 05/31/17 04:00 86 05/31/17 03:40 100 35 05/31/17 02:00 79 05/31/17 00:00 35 05/31/17 00:00 80 05/30/17 23:48 100 35 05/30/17 22:00 79 05/30/17 20:16 100 35 05/30/17 20:00 35 05/30/17 20:00 82 05/30/17 19:15 97.6 82 21 139/63 (88) 100 05/30/17 18:00 85 05/30/17 16:06 87 05/30/17 16:06 87 21 139/63 (88) 100 05/30/17 16:00 81 19 146/67 (93) 98 05/30/17 16:00 99.7 05/30/17 16:00 35 05/30/17 16:00 81 05/30/17 15:14 99 35 05/30/17 14:00 77 I/O 05/30/17 05/30/17 05/30/17 05/31/17 05/31/17 05/31/17 07:00 15:00 23:00 07:00 15:00 23:00 Intake Total 1225 ml 1303 ml 1581 ml 250 ml Output Total 1500 ml 2750 ml 1650 ml Balance -275 ml -1447 ml -69 ml 250 ml Intake IV Total 553 ml 250 ml Tube Feeding 475 ml 583 ml 788 ml Tube Irrigant 150 ml Other 600 ml 720 ml 240 ml Output Urine Total 1450 ml 2750 ml 1400 ml Stool Total 50 ml 250 ml # Bowel Movements 0 Physical Exam GENERAL: SKIN: Warm and dry. HEAD: Normocephalic. EYES: No scleral icterus. No injection or drainage. NECK: Supple, trachea midline. No JVD or lymphadenopathy. CARDIOVASCULAR: Regular rate and rhythm without murmurs, gallops, or rubs. RESPIRATORY: Breath sounds equal bilaterally. No accessory muscle use. GASTROINTESTINAL: Abdomen soft, non-tender, nondistended. MUSCULOSKELETAL: No cyanosis, or edema. BACK: Nontender without obvious deformity. No CVA tenderness. Assessment and Plan Problem List: (1) CAD (coronary artery disease) ICD Codes: I25.10 - Atherosclerotic heart disease of [place] coronary artery without angina pectoris (2) CHRONIC OBSTRUCTIVE PULMON DISEASE W ACUTE LOWER RESP INFCT ICD Codes: J44.0 - CHRONIC OBSTRUCTIVE PULMON DISEASE W ACUTE LOWER RESP INFCT Status: Acute (3) Cardiomyopathy ICD Codes: I42.9 - Cardiomyopathy Status: Acute (4) Cardiopulmonary arrest ICD Codes: I46.9 - Cardiac arrest, cause unspecified Status: Acute (5) Diabetes mellitus ICD Codes: E11.9 - Type 2 diabetes mellitus without complications Status: Acute Assessment and Plan 1.) Cardiomyopathy - euvolemic, continue coreg 25 mg bid, start altace 2.5 mg qd , [id number] 05/23/17 2.) CAD - continue aspirin, statin held due to shock liver and elevated lfts 3.) s/p trach, awaiting terminal worker care, s/p peg 05/25/17; family uncertain @ timing of care withdrawal, currently comfort care 4.) PAF - continue dig, cardizem, coreg, defer ac determination to neuro Aguila Early MD May 31, 2017 13:25
[2017-06-01] VITALS (20 sets, daily range): BP systolic 122–126; BP diastolic 58–61; PULSE 101–112; RESP 12–24; TEMP 98.1–100.9; O2SAT 92–99
[2017-06-01] MEDS: CHLORHEXIDINE GLUCONATE 2 % 1 PACK (2 CLOTHS) TOP SCH (00:48)
[2017-06-01] MEDS: HYOSCYAMINE SOLN 0.125 MG/ML 15 ML BTL PEG SCH ×3 (05:13→21:58)
[2017-06-01] MEDS: fentaNYL DRIP 250 ML IV PRN ×2 (06:18→15:47)
[2017-06-01] MEDS: CHLORHEXIDINE 0.12% (ORAL KIT) 15 ML CUP MT SCH ×2 (08:00→21:57)
[2017-06-01] MEDS: VALPROIC ACID SYRUP 250 MG/5 ML UDC NG SCH ×2 (08:52→21:57)
[2017-06-01] MEDS: ARTIFICIAL TEARS OPTH OINT 3.5 APPLIC/3.5 GM TUBO EACH EYE SCH ×2 (08:54→21:57)
[2017-06-01] MEDS: levETIRAcetam 500 MG/5 ML UDC NG SCH ×2 (08:54→21:57)
[2017-06-01] MEDS: DOCUSATE SODIUM 50 MG/SENNA 8.6 MG TAB PO SCH ×2 (08:54→21:57)
--- NOTE | 2017-06-01 13:13 | PD.CARD.PN ---
Subjective Subjective Remarks s/p tracheotomy, unresponsive off sedation Objective Medications Current Medications Medications (Trade) Dose Ordered Sig/Scarlett Route Start Time Stop Time Status Last Admin (Tylenol) 650 mg Q6H PRN PO 05/06/17 23:30 05/27/17 23:03 (Zofran Inj) 4 mg Q6H PRN IV PUSH 05/06/17 23:30 (Albuterol Neb) 2.5 mg Q2HR NEB PRN INH 05/06/17 23:30 05/30/17 05:10 Miscellaneous Information 1 Q361D XX 05/06/17 23:30 (Chlorhexidine 2% Cloth) Taper DAILY@04 TOP 05/07/17 04:00 05/03/18 03:59 06/01/17 00:48 (Chlorhexidine 2% Cloth) 3 pack UNSCH PRN TOP 05/06/17 23:30 (Aggie-Colace) 1 tab BID PO 05/07/17 09:00 06/01/17 08:54 (Milk Of Magnesia Liq) 30 ml Q12H PRN PO 05/06/17 23:30 (Dulcolax Supp) 10 mg DAILY PRN RECTAL 05/06/17 23:30 (Peridex 0.12% Liq) 15 ml BID@08,20 MT 05/07/17 08:00 06/01/17 08:00 (NS Flush) 2 ml BID IV FLUSH 05/07/17 09:00 05/31/17 21:00 (NS Flush) 2 ml UNSCH PRN IV FLUSH 05/07/17 04:30 (Lacrilube Opht Oint) 1 applic Q12HR EACH EYE 05/07/17 09:00 06/01/17 08:54 (Apresoline Inj) 20 mg Q4H PRN IV PUSH 05/13/17 11:15 05/21/17 02:57 (Depakene Liq) 250 mg BID NG 05/16/17 11:00 06/01/17 08:52 (Keppra Liq) 1,000 mg Q12HR NG 05/18/17 09:00 06/01/17 08:54 (Trandate Inj) 10 mg Q1H PRN IV 05/19/17 13:15 (Haldol Inj) 5 mg Q4H PRN IV 05/20/17 18:45 (Levsin Liq) 0.25 mg Q8HR PEG 05/29/17 22:00 06/01/17 05:13 Fentanyl Citrate 250 ml @ 25 mls/hr TITRATE PRN IV 05/30/17 17:30 06/01/17 06:18 Vital Signs / I&O Vital Signs Date Time Temp Pulse Resp B/P (MAP) Pulse Ox O2 Delivery O2 Flow Rate FiO2 06/01/17 12:01 100.9 112 22 122/61 (81) 97 06/01/17 12:00 108 06/01/17 11:23 92 40 06/01/17 10:00 108 06/01/17 08:38 97 40 06/01/17 08:00 108 06/01/17 08:00 50 06/01/17 07:15 99.0 110 24 126/58 (80) 96 06/01/17 06:00 108 06/01/17 04:21 99 40 06/01/17 04:00 50 06/01/17 04:00 104 06/01/17 02:00 102 06/01/17 01:09 97 40 06/01/17 00:00 50 06/01/17 00:00 101 05/31/17 22:00 102 05/31/17 21:32 96 T-piece 6.00 40 05/31/17 20:00 50 05/31/17 20:00 105 05/31/17 19:15 99.5 102 25 124/58 (80) 96 05/31/17 18:00 104 05/31/17 16:00 106 05/31/17 16:00 50 05/31/17 14:00 101 I/O 05/31/17 05/31/17 05/31/17 06/01/17 06/01/17 06/01/17 07:00 15:00 23:00 07:00 15:00 23:00 Intake Total 1581 ml 250 ml 826 ml 1068 ml Output Total 1650 ml 2575 ml 2900 ml Balance -69 ml 250 ml -1749 ml -1832 ml Intake IV Total 553 ml 250 ml 170 ml 400 ml Tube Feeding 788 ml 476 ml 548 ml Other 240 ml 180 ml 120 ml Output Urine Total 1400 ml 2550 ml 2800 ml Stool Total 250 ml 25 ml 100 ml Physical Exam GENERAL: SKIN: Warm and dry. HEAD: Normocephalic. EYES: No scleral icterus. No injection or drainage. NECK: Supple, trachea midline. No JVD or lymphadenopathy. CARDIOVASCULAR: Regular rate and rhythm without murmurs, gallops, or rubs. RESPIRATORY: Breath sounds equal bilaterally. No accessory muscle use. GASTROINTESTINAL: Abdomen soft, non-tender, nondistended. MUSCULOSKELETAL: No cyanosis, or edema. BACK: Nontender without obvious deformity. No CVA tenderness. Assessment and Plan Problem List: (1) CAD (coronary artery disease) ICD Codes: I25.10 - Atherosclerotic heart disease of [place] coronary artery without angina pectoris (2) CHRONIC OBSTRUCTIVE PULMON DISEASE W ACUTE LOWER RESP INFCT ICD Codes: J44.0 - CHRONIC OBSTRUCTIVE PULMON DISEASE W ACUTE LOWER RESP INFCT Status: Acute (3) Cardiomyopathy ICD Codes: I42.9 - Cardiomyopathy Status: Acute (4) Cardiopulmonary arrest ICD Codes: I46.9 - Cardiac arrest, cause unspecified Status: Acute (5) Diabetes mellitus ICD Codes: E11.9 - Type 2 diabetes mellitus without complications Status: Acute Assessment and Plan 1.) Cardiomyopathy - euvolemic, continue coreg 25 mg bid, start altace 2.5 mg qd , [id number] 05/23/17 2.) CAD - continue aspirin, statin held due to shock liver and elevated lfts 3.) s/p trach, awaiting intermodal truck driver care, s/p peg 05/25/17; family uncertain @ timing of care withdrawal, currently comfort care 4.) PAF - continue dig, cardizem, coreg, defer ac determination to neuro Aguila Early MD Jun 01, 2017 13:13
--- NOTE | 2017-06-01 15:38 | HHI.CCPN ---
Subjective Remarks/Hospital Course 56-year-old female with past medical history of hypertension, chronic systolic heart failure, diabetes, COPD bipolar disorder, seizure disorder who presented to [facility] emergency department via [facility] following cardiac arrest. [facility] was originally called for shortness of breath and when they arrived patient was unresponsive and in PEA. Combitube was placed. CPR was initiated and patient was administered epinephrine 4, 1 amp bicarbonate, Narcan 2 mg prior to arrival via left tibial I/O. Blood glucose was 334. Exact duration of prehospital CPR is unclear. Combitube was removed and she was intubated upon arrival. Patient had ROSC 5 minutes after arrival. She received additional epinephrine 2 in the ED. She also received 1 L normal saline bolus, vancomycin, Zosyn in the ED. Critical care medicine is consulted for admission. EKG has no acute ischemia. SUBJ 05/07: Intubated sedated neuromuscularly paralyzed. Induced hypothermia initiated at 7 AM, 2-D echo shows EF 25-30%, mild to moderate MR. Serial troponins negative 05/08: Remains neuromuscularly paralyzed. Hypothermia will be completed by the known and rewarming was started. Remains off inotropes and pressors 05/09: Hypothermia protocol completed, placed overnight on Versed also in addition to propofol and fentanyl for tachycardia and asynchrony. Currently patient while on sedation do not open eyes with very slight withdrawal to pain 05/10: Developed Afib with RVR yesterday with HR in 200's DC cardioverted at night by Dr. Chu. Placed back on Versed. RN reports paroxysmal A fib. EEG pending at this time for subclinical sz. EEG 05/07 burst suppression pattern. Neuro prognosis poor 05/11: No neuro improvement. Creat worsening, nephrology consulted. EEG severe encephalopathy consistent with anoxic injury. Palliative care is following 05/12: There had been no improvement in neuro status after completion of code cool approximately 4 days ago. Patient has not shown not seen any signs of improvement. Palliative care met with family. Patient is developing multiorgan dysfunction syndrome. Daughter wants withdrawal of life support but wants to wait until some other family members can visit from [place] 05/13: No meaningful recovery yet. Opens eyes partially to pain. Weakly withdraws all extremities to pain. UO 1.8L in 24 hours. Family considering withdrawal of life support today, considering comorbidities and poor neuro recovery after cooling 05/14: Eyes are spontaneously open but with upward gaze. No tracking no response to threat. Withdraws bilateral upper extremity to pain. Had been off sedation more than 4 days 05/15: Neuro exam remains unchanged, even less eye-opening and withdrawal. Fever up to 103.5. Pancultured. Continue on vancomycin and Zosyn until cultures are back. 05/16: no improvements or changes to mental status. persistent encephalopathy. poor prognosis. family wants to wait until other family can be present. palliative care clarifying goals. 05/17: no changes to poor mental status. still awaiting family. hypernatremia worsening. nephrology following. Cr improving though; ahsan post-ATN diuresis. 05/18: Tmax 98.9. Positive gag. Positive corneal reflex. Blinks. Does not withdraw to pain. Went to A. fib with RVR the today requiring synchronous cardioversion with 200 J currently in sinus tachycardia. Given digoxin 0.5 mg IV now. 05/19: Afebrile. Has not brain injury. Daughter yesterday she says she was the patient trach and PEG. Started on desmopressin per nephrology yesterday. Sodium still remains elevated. 05/20: no improvements in severe encephalopathy. Daughter continues to want aggressive treatment. will proceed with trach and PEG, and pursue long-term placement. 05/21: no improvements in neuro exam. s/p trach yesterday. GI consulted for PEG. needs placement. sodium downtrending and improving. 05/22: no improvements or changes. on SBT this AM on my eval. persistently encephalopathic. needs placement. Sodium derangements slowly improving. 05/23: PEG planned for today. weaning vent slowly. metabolic derangements improving. Cr downtrending. awaiting placement. 05/24: failed SBT yesterday for tachypnea. failed again today for persistent tachypnea and low tidal volumes. continue trying daily sbt's. 05/25: again attempted to wean pressure support and failed weaning attempt. no other acute issues. no indication for inpatient admission at this time. Needs LTAC for aggressive pulmonary rehab and weaning, but insurance denied. 05/26: failed weaning yesterday for weakness, tachypnea. new fever today. will obtain u/a, CXR, cultures. nontoxic appearing. will also draw procalcitonin level. nontoxic appearing and no other change in vital signs. PEG placed yesterday. 05/27: additional weaning attempts failed today. needs LTAC. resubmitted insurance authorization today, but no decision made. no indication for inpatient admission at this time, but no authorization to move. 05/28: no changes or improvements. still awaiting second authorization attempt to get to LTAC. 05/29: no changes. afebrile. will again try daily weaning attempts. slow progress. needs LTAC. 05/30: no improvements in mental status. Palliative service and I called family today to discuss goals of care. Patient was approved to go to LTAC, but now family wants to pursue withdraw of care and terminal wean. However, when discussing this with the family, they want to put off withdraw of care until . I discussed this at length with the family and I expressed my concerns that the patient is suffering and at times grimaces to turning, and waiting more time with aggressive goals when the family has already decided the end result is to withdraw care, would not be in the patient's best interest. They are resistant to any discussion about moving this date earlier. We did agree that anything that increases the patient's pain, including needle sticks, lab draws, or further testing they would not want. they do feel strongly about keeping tube feeding and keeping her on the ventilator. they are ok if I start some opiate sedation medication to help with any objective signs of pain. They agree we should treat fevers with tylenol and not antibiotics, and are ok with "no escalation of care", including no vasopressors or higher level medications. will stop all medicines that are not directly related to patient comfort. however, once again, they will not allow us to remove mechanical ventilation or feeding until 06/06 per their direct expressed wishes. Subjective 05/31: family continues to resist withdraw of care, but refuse outside placement. after starting fentanyl, appears more comfortable. 06/01: No changes or acute events overnight. Appears comfortable on vent. Apparently vent withdrawal planned on 06/06 Objective Vital Signs Date Time Temp Pulse Resp B/P (MAP) Pulse Ox O2 Delivery O2 Flow Rate FiO2 06/01/17 14:00 108 06/01/17 13:50 94 40 06/01/17 12:01 100.9 22 122/61 (81) 05/31/17 21:32 T-piece 6.00 Intake and Output 06/01/17 06/01/17 06/02/17 08:00 16:00 00:00 Intake Total 1068 ml Output Total 2900 ml Balance -1832 ml Imaging Last Impressions Chest X-Ray 05/18/17 0000 Signed Impressions: Service Date/Time: Thursday, May 18, 2017 08:14 - CONCLUSION: ET tube tip that the upper thoracic level. Increasing left lower lung consolidation. Obi Barnes MD Abdomen Ultrasound 05/07/17 0000 Signed Impressions: Service Date/Time: Sunday, May 07, 2017 14:19 - CONCLUSION: 1. Echogenic liver compatible with fatty infiltration or hepatocellular disease. 2. Cholecystectomy Laith Coe MD Head CT [id number] Signed Impressions: Service Date/Time: Sunday, May 07, 2017 03:14 - CONCLUSION: Normal examination. Noé Ybarra MD CT Angiography 05/06/17 0000 Signed Impressions: Service Date/Time: Sunday, May 07, 2017 03:21 - CONCLUSION: 1. No pulmonary embolus. 2. Bibasilar areas of consolidation or atelectasis being worse on the left. There are minimal bilateral pleural effusions. Noé Ybarra MD Objective Remarks GENERAL: 56-year-old female who is trached, unresponsive. SKIN: Warm and dry. Well perfused HEAD: Atraumatic. Normocephalic. EYES: Bilateral exophthalmus. Pupils equal and round, reactive around 4 mm bilaterally. Positive corneal reflex ENT: No nasal bleeding or discharge. fresh tracheostomy in place without evidence of bleeding. NECK: Trachea midline. No JVD appreciated. No meningismus CARDIOVASCULAR: normal rate, regular rhythm. sinus by tele. RESPIRATORY:trach collar, tachypneic. equal chest rise. GASTROINTESTINAL: Abdomen protuberant soft. No appreciable tenderness , rebound or guarding. : Benoit catheter is in place MUSCULOSKELETAL: Extremities without significant peripheral edema NEUROLOGICAL: Blinks.. Minimal partial eye opening to pain. Slight withdrawal to pain in all 4 ext upper extremities more than lower. Pupils as above. Positive gag. A/P Problem List: (1) Cardiac arrest ICD Code: I46.9 - Cardiac arrest, cause unspecified Status: Resolved (2) Anoxic-ischemic encephalopathy ICD Code: G93.1 - Anoxic brain damage, not elsewhere classified; I67.82 - Cerebral ischemia Status: Chronic (3) Chronic systolic heart failure ICD Code: I50.22 - Chronic systolic (congestive) heart failure Status: Chronic (4) Exophthalmos of both eyes ICD Code: H05.20 - Unspecified exophthalmos Status: Chronic (5) HTN (hypertension) ICD Code: I10 - Essential (primary) hypertension Status: Chronic (6) HLD (hyperlipidemia) ICD Code: E78.5 - Hyperlipidemia, unspecified Status: Chronic (7) Cardiogenic shock ICD Code: R57.0 - Cardiogenic shock Status: Resolved (8) Acute respiratory failure with hypercapnia ICD Code: J96.02 - Acute respiratory failure with hypercapnia Status: Chronic (9) Obesity (BMI 30-39.9) ICD Code: E66.9 - Obesity, unspecified Status: Chronic (10) CHF (congestive heart failure) ICD Code: I50.9 - CHF (congestive heart failure) Status: Resolved (11) Bipolar disorder ICD Code: F31.9 - Bipolar affective disorder Status: Chronic (12) COPD (chronic obstructive pulmonary disease) ICD Code: J44.9 - Chronic obstructive pulmonary disease Status: Chronic (13) Tobacco abuse ICD Code: Z72.0 - Tobacco use Status: Chronic Assessment and Plan Assessment: 56yF with severe hypoxic-ischemic encephalopathy. poor prognosis. s/ p trach and PEG. we have been attempting to wean pressure on CPAP but unable given poor tidal volumes and tachypnea. Now family wishes to withdraw, but wait until 06/06 to formally withdraw care. Dr. Melvin shared his professional opinion that he believes she is suffering and do not think it is in the patient' s best interest to continue this course of action until 06/06, but they are firm with that date. for now, we have agreed to pursue a "no escalation of care " and stop anything that does not involve patient symptoms and comfort. I agree with Dr. Melvin's opinion - qshift vital signs - fentanyl drip at 250 mcg/min to address pain/suffering concerns. patient grimaces on turning - d/c anything that causes pain, including lab draws, SQ medications with needles, medications not involved in symptom management. - no escalation of care - keep tube feeds and mechanical ventilation at family's insistence. Dr. Melvin did express to the family that he would continue to call them and update them regarding her symptom control, and although this was an agreement we have come to. Full comfort measures and palliative extubation is in the patient's best interest. Milena Zhao with the palliative care service was a part of the conversation and agrees with Dr. Melvin's assessment. Palliative will continue to follow along. Acute anoxic encephalopathy, severe Bipolar disorder Exophthalmus Acute hypercapnic respiratory failure COPD Tobacco abuse s/p PEA cardiac arrest Post cardiac arrest syndrome with shock (resolved) Afib with RVR - resolved. Chronic systolic heart failure with ejection fraction 15-20% (25-30 on echo) Nonobstructive Coronary artery disease Essential Hypertension, uncontrolled Hyperlipidemia GERD Transaminitis, probable ischemic hepatopathy. High fever, sepsis Candiduria Bacteremia with strep viridans, Coag neg staph, pleomorphic GPR Diabetes mellitus with acute hyperglycemia ALT CODE. Palliative care following. Prognosis appears very poor. Problem Qualifiers (1) HTN (hypertension): Qualified Codes: I10 - Essential (primary) hypertension Jaqueline Umanzor MD Jun 01, 2017 15:38
[2017-06-01] MEDS: SODIUM CHLORIDE 0.9% FLUSH 10 ML FLUSH IV FLUSH SCH ×2 (21:00→21:56)
[2017-06-01] MEDS: ACETAMINOPHEN 325 MG TAB PO PRN (21:58)
[2017-06-02] VITALS (14 sets, daily range): BP systolic 111–125; BP diastolic 54–59; PULSE 89–101; RESP 15–28; TEMP 98.1–98.7; O2SAT 91–97
[2017-06-02] MEDS: CHLORHEXIDINE GLUCONATE 2 % 1 PACK (2 CLOTHS) TOP SCH (01:38)
[2017-06-02] MEDS: fentaNYL DRIP 250 ML IV PRN ×2 (01:38→09:59)
[2017-06-02] MEDS: HYOSCYAMINE SOLN 0.125 MG/ML 15 ML BTL PEG SCH ×3 (06:04→21:18)
[2017-06-02] MEDS: CHLORHEXIDINE 0.12% (ORAL KIT) 15 ML CUP MT SCH ×2 (08:16→21:06)
[2017-06-02] MEDS: levETIRAcetam 500 MG/5 ML UDC NG SCH ×2 (08:17→21:18)
[2017-06-02] MEDS: DOCUSATE SODIUM 50 MG/SENNA 8.6 MG TAB PO SCH ×2 (08:17→21:18)
[2017-06-02] MEDS: SODIUM CHLORIDE 0.9% FLUSH 10 ML FLUSH IV FLUSH SCH ×2 (08:17→21:17)
[2017-06-02] MEDS: ARTIFICIAL TEARS OPTH OINT 3.5 APPLIC/3.5 GM TUBO EACH EYE SCH ×2 (08:17→21:17)
[2017-06-02] MEDS: VALPROIC ACID SYRUP 250 MG/5 ML UDC NG SCH ×2 (08:17→21:17)
[2017-06-02] MEDS ORDERED: fentaNYL 50 MCG/HR PATCH T-DERMAL ONE (11:15)
[2017-06-02] MEDS ORDERED: fentaNYL 50 MCG/HR PATCH T-DERMAL SCH (11:15)
[2017-06-02] MEDS ORDERED: fentaNYL CITRATE 250 MCG/5 ML AMP IV PUSH PRN (11:15)
--- NOTE | 2017-06-02 11:20 | HHI.CCPN ---
Subjective Remarks/Hospital Course 56-year-old female with past medical history of hypertension, chronic systolic heart failure, diabetes, COPD bipolar disorder, seizure disorder who presented to [facility] emergency department via [facility] following cardiac arrest. [facility] was originally called for shortness of breath and when they arrived patient was unresponsive and in PEA. Combitube was placed. CPR was initiated and patient was administered epinephrine 4, 1 amp bicarbonate, Narcan 2 mg prior to arrival via left tibial I/O. Blood glucose was 334. Exact duration of prehospital CPR is unclear. Combitube was removed and she was intubated upon arrival. Patient had ROSC 5 minutes after arrival. She received additional epinephrine 2 in the ED. She also received 1 L normal saline bolus, vancomycin, Zosyn in the ED. Critical care medicine is consulted for admission. EKG has no acute ischemia. SUBJ 05/07: Intubated sedated neuromuscularly paralyzed. Induced hypothermia initiated at 7 AM, 2-D echo shows EF 25-30%, mild to moderate MR. Serial troponins negative 05/08: Remains neuromuscularly paralyzed. Hypothermia will be completed by the known and rewarming was started. Remains off inotropes and pressors 05/09: Hypothermia protocol completed, placed overnight on Versed also in addition to propofol and fentanyl for tachycardia and asynchrony. Currently patient while on sedation do not open eyes with very slight withdrawal to pain 05/10: Developed Afib with RVR yesterday with HR in 200's DC cardioverted at night by Dr. Chu. Placed back on Versed. RN reports paroxysmal A fib. EEG pending at this time for subclinical sz. EEG 05/07 burst suppression pattern. Neuro prognosis poor 05/11: No neuro improvement. Creat worsening, nephrology consulted. EEG severe encephalopathy consistent with anoxic injury. Palliative care is following 05/12: There had been no improvement in neuro status after completion of code cool approximately 4 days ago. Patient has not shown not seen any signs of improvement. Palliative care met with family. Patient is developing multiorgan dysfunction syndrome. Daughter wants withdrawal of life support but wants to wait until some other family members can visit from [place] 05/13: No meaningful recovery yet. Opens eyes partially to pain. Weakly withdraws all extremities to pain. UO 1.8L in 24 hours. Family considering withdrawal of life support today, considering comorbidities and poor neuro recovery after cooling 05/14: Eyes are spontaneously open but with upward gaze. No tracking no response to threat. Withdraws bilateral upper extremity to pain. Had been off sedation more than 4 days 05/15: Neuro exam remains unchanged, even less eye-opening and withdrawal. Fever up to 103.5. Pancultured. Continue on vancomycin and Zosyn until cultures are back. 05/16: no improvements or changes to mental status. persistent encephalopathy. poor prognosis. family wants to wait until other family can be present. palliative care clarifying goals. 05/17: no changes to poor mental status. still awaiting family. hypernatremia worsening. nephrology following. Cr improving though; ahsan post-ATN diuresis. 05/18: Tmax 98.9. Positive gag. Positive corneal reflex. Blinks. Does not withdraw to pain. Went to A. fib with RVR the today requiring synchronous cardioversion with 200 J currently in sinus tachycardia. Given digoxin 0.5 mg IV now. 05/19: Afebrile. Has not brain injury. Daughter yesterday she says she was the patient trach and PEG. Started on desmopressin per nephrology yesterday. Sodium still remains elevated. 05/20: no improvements in severe encephalopathy. Daughter continues to want aggressive treatment. will proceed with trach and PEG, and pursue long-term placement. 05/21: no improvements in neuro exam. s/p trach yesterday. GI consulted for PEG. needs placement. sodium downtrending and improving. 05/22: no improvements or changes. on SBT this AM on my eval. persistently encephalopathic. needs placement. Sodium derangements slowly improving. 05/23: PEG planned for today. weaning vent slowly. metabolic derangements improving. Cr downtrending. awaiting placement. 05/24: failed SBT yesterday for tachypnea. failed again today for persistent tachypnea and low tidal volumes. continue trying daily sbt's. 05/25: again attempted to wean pressure support and failed weaning attempt. no other acute issues. no indication for inpatient admission at this time. Needs LTAC for aggressive pulmonary rehab and weaning, but insurance denied. 05/26: failed weaning yesterday for weakness, tachypnea. new fever today. will obtain u/a, CXR, cultures. nontoxic appearing. will also draw procalcitonin level. nontoxic appearing and no other change in vital signs. PEG placed yesterday. 05/27: additional weaning attempts failed today. needs LTAC. resubmitted insurance authorization today, but no decision made. no indication for inpatient admission at this time, but no authorization to move. 05/28: no changes or improvements. still awaiting second authorization attempt to get to LTAC. 05/29: no changes. afebrile. will again try daily weaning attempts. slow progress. needs LTAC. 05/30: no improvements in mental status. Palliative service and I called family today to discuss goals of care. Patient was approved to go to LTAC, but now family wants to pursue withdraw of care and terminal wean. However, when discussing this with the family, they want to put off withdraw of care until . I discussed this at length with the family and I expressed my concerns that the patient is suffering and at times grimaces to turning, and waiting more time with aggressive goals when the family has already decided the end result is to withdraw care, would not be in the patient's best interest. They are resistant to any discussion about moving this date earlier. We did agree that anything that increases the patient's pain, including needle sticks, lab draws, or further testing they would not want. they do feel strongly about keeping tube feeding and keeping her on the ventilator. they are ok if I start some opiate sedation medication to help with any objective signs of pain. They agree we should treat fevers with tylenol and not antibiotics, and are ok with "no escalation of care", including no vasopressors or higher level medications. will stop all medicines that are not directly related to patient comfort. however, once again, they will not allow us to remove mechanical ventilation or feeding until 06/06 per their direct expressed wishes. Subjective 05/31: family continues to resist withdraw of care, but refuse outside placement. after starting fentanyl, appears more comfortable. 06/01: No changes or acute events overnight. Appears comfortable on vent. Apparently withdrawal/comfort measures planned on 06/06 06/02: Patient was weaned to TP since yesterday, remains off vent since then, currently DNR. Breathing comfortably. DC fentanyl gtt and start Fentanyl patch. Objective Vital Signs Date Time Temp Pulse Resp B/P (MAP) Pulse Ox O2 Delivery O2 Flow Rate FiO2 06/02/17 10:00 97 06/02/17 08:15 96 T-piece 6.00 35 06/02/17 08:00 98.6 24 120/58 (78) Intake and Output 06/02/17 06/02/17 06/03/17 08:00 16:00 00:00 Intake Total 876 ml Output Total 3200 ml Balance -2324 ml Imaging Last Impressions Chest X-Ray 05/18/17 0000 Signed Impressions: Service Date/Time: Thursday, May 18, 2017 08:14 - CONCLUSION: ET tube tip that the upper thoracic level. Increasing left lower lung consolidation. Obi Barnes MD Abdomen Ultrasound 05/07/17 0000 Signed Impressions: Service Date/Time: Sunday, May 07, 2017 14:19 - CONCLUSION: 1. Echogenic liver compatible with fatty infiltration or hepatocellular disease. 2. Cholecystectomy Laith Coe MD Head CT [id number] Signed Impressions: Service Date/Time: Sunday, May 07, 2017 03:14 - CONCLUSION: Normal examination. Noé Ybarra MD CT Angiography 05/06/17 0000 Signed Impressions: Service Date/Time: Sunday, May 07, 2017 03:21 - CONCLUSION: 1. No pulmonary embolus. 2. Bibasilar areas of consolidation or atelectasis being worse on the left. There are minimal bilateral pleural effusions. Noé Ybarra MD Objective Remarks GENERAL: 56-year-old female who is trached, unresponsive on TP SKIN: Warm and dry. Well perfused HEAD: Atraumatic. Normocephalic. EYES: Bilateral exophthalmus. Pupils equal and round, reactive around 4 mm bilaterally. Positive corneal reflex ENT: No nasal bleeding or discharge. fresh tracheostomy in place without evidence of bleeding. NECK: Trachea midline. No JVD appreciated. No meningismus CARDIOVASCULAR: normal rate, regular rhythm. sinus by tele. RESPIRATORY: On TP breathing comfortably. equal chest rise. GASTROINTESTINAL: Abdomen protuberant soft. No appreciable tenderness , rebound or guarding. : Benoit catheter is in place MUSCULOSKELETAL: Extremities without significant peripheral edema NEUROLOGICAL: Blinks. Minimal partial eye opening to pain. Slight withdrawal to pain in all 4 ext upper extremities more than lower. Pupils as above. Positive gag. A/P Problem List: (1) Cardiac arrest ICD Code: I46.9 - Cardiac arrest, cause unspecified Status: Resolved (2) Anoxic-ischemic encephalopathy ICD Code: G93.1 - Anoxic brain damage, not elsewhere classified; I67.82 - Cerebral ischemia Status: Chronic (3) Chronic systolic heart failure ICD Code: I50.22 - Chronic systolic (congestive) heart failure Status: Chronic (4) Exophthalmos of both eyes ICD Code: H05.20 - Unspecified exophthalmos Status: Chronic (5) HTN (hypertension) ICD Code: I10 - Essential (primary) hypertension Status: Chronic (6) HLD (hyperlipidemia) ICD Code: E78.5 - Hyperlipidemia, unspecified Status: Chronic (7) Cardiogenic shock ICD Code: R57.0 - Cardiogenic shock Status: Resolved (8) Acute respiratory failure with hypercapnia ICD Code: J96.02 - Acute respiratory failure with hypercapnia Status: Chronic (9) Obesity (BMI 30-39.9) ICD Code: E66.9 - Obesity, unspecified Status: Chronic (10) CHF (congestive heart failure) ICD Code: I50.9 - CHF (congestive heart failure) Status: Resolved (11) Bipolar disorder ICD Code: F31.9 - Bipolar affective disorder Status: Chronic (12) COPD (chronic obstructive pulmonary disease) ICD Code: J44.9 - Chronic obstructive pulmonary disease Status: Chronic (13) Tobacco abuse ICD Code: Z72.0 - Tobacco use Status: Chronic Assessment and Plan Assessment: 56yF with severe hypoxic-ischemic encephalopathy. poor prognosis. s/ p trach and PEG. Tolerating TP since 06/01/17 afternoon. Now family wishes to withdraw, but wait until 06/06 to formally withdraw care. Dr. Melvin shared his professional opinion that he believes she is suffering and do not think it is in the patient's best interest to continue this course of action until 06/06, but family firm with that date. for now, Dr. Melvin and family have agreed to pursue a "no escalation of care" and stop anything that does not involve patient symptoms and comfort. I agree with Dr. Melvin's opinion - qshift vital signs; DC Fentanyl drip, start Fentanyl fentanyl drip at 100 mcg/ hour to address pain/suffering concerns, with PRN IV Fentanyl pushes. patient grimaces on turning - d/cd anything that causes pain, including lab draws, SQ medications with needles, medications not involved in symptom management. - no escalation of care - Weaned off Mechanical ventilation, comfortable on TP since 06/01/17 - keep tube feeds Full comfort measures and palliative extubation is in the patient's best interest. Milena Zhao with the palliative care service was a part of the conversation and agrees with Dr. Melvin's assessment. Palliative will continue to follow along and I discussed with Milena today 06/02/17. Will clarify with family about mechanical ventilation if patient developed respiratory failure again. I recommended ful DNR/ DNI Acute anoxic encephalopathy, severe Bipolar disorder Exophthalmus Acute hypercapnic respiratory failure COPD Tobacco abuse s/p PEA cardiac arrest Post cardiac arrest syndrome with shock (resolved) Afib with RVR - resolved. Chronic systolic heart failure with ejection fraction 15-20% (25-30 on echo) Nonobstructive Coronary artery disease Essential Hypertension, uncontrolled Hyperlipidemia GERD Transaminitis, probable ischemic hepatopathy. High fever, sepsis Candiduria Bacteremia with strep viridans, Coag neg staph, pleomorphic GPR Diabetes mellitus with acute hyperglycemia DNR. Palliative care following, will address DNI. Prognosis appears very poor. Consult [facility] to assume care. Pulmonary consult for chronic trach management Problem Qualifiers (1) HTN (hypertension): Qualified Codes: I10 - Essential (primary) hypertension Jaqueline Umanzor MD Jun 02, 2017 11:20
[2017-06-02] MEDS: fentaNYL 100 MCG/HR PATCH T-DERMAL SCH (14:21)
--- NOTE | 2017-06-02 15:02 | PD.CARD.PN ---
Subjective Subjective Remarks s/p tracheotomy, unresponsive off sedation Objective Medications Current Medications Medications (Trade) Dose Ordered Sig/Scarlett Route Start Time Stop Time Status Last Admin (Tylenol) 650 mg Q6H PRN PO 05/06/17 23:30 06/01/17 21:58 (Zofran Inj) 4 mg Q6H PRN IV PUSH 05/06/17 23:30 (Albuterol Neb) 2.5 mg Q2HR NEB PRN INH 05/06/17 23:30 05/30/17 05:10 Miscellaneous Information 1 Q361D XX 05/06/17 23:30 (Chlorhexidine 2% Cloth) Taper DAILY@04 TOP 05/07/17 04:00 05/03/18 03:59 06/02/17 01:38 (Chlorhexidine 2% Cloth) 3 pack UNSCH PRN TOP 05/06/17 23:30 (Aggie-Colace) 1 tab BID PO 05/07/17 09:00 06/02/17 08:17 (Milk Of Magnesia Liq) 30 ml Q12H PRN PO 05/06/17 23:30 (Dulcolax Supp) 10 mg DAILY PRN RECTAL 05/06/17 23:30 (Peridex 0.12% Liq) 15 ml BID@08,20 MT 05/07/17 08:00 06/02/17 08:16 (NS Flush) 2 ml BID IV FLUSH 05/07/17 09:00 06/02/17 08:17 (NS Flush) 2 ml UNSCH PRN IV FLUSH 05/07/17 04:30 (Lacrilube Opht Oint) 1 applic Q12HR EACH EYE 05/07/17 09:00 06/02/17 08:17 (Apresoline Inj) 20 mg Q4H PRN IV PUSH 05/13/17 11:15 05/21/17 02:57 (Depakene Liq) 250 mg BID NG 05/16/17 11:00 06/02/17 08:17 (Keppra Liq) 1,000 mg Q12HR NG 05/18/17 09:00 06/02/17 08:17 (Trandate Inj) 10 mg Q1H PRN IV 05/19/17 13:15 (Haldol Inj) 5 mg Q4H PRN IV 05/20/17 18:45 (Levsin Liq) 0.25 mg Q8HR PEG 05/29/17 22:00 06/02/17 13:55 (Duragesic 100 Mcg Patch.72 Hr) 1 patch Q3D T-DERMAL 06/02/17 14:00 06/02/17 14:21 Miscellaneous Information 1 Q3D T-DERMAL 06/05/17 14:00 Vital Signs / I&O Vital Signs Date Time Temp Pulse Resp B/P (MAP) Pulse Ox O2 Delivery O2 Flow Rate FiO2 06/02/17 14:00 89 06/02/17 12:00 98.6 96 23 112/55 (74) 91 06/02/17 12:00 35 06/02/17 12:00 96 06/02/17 10:00 97 06/02/17 08:15 96 T-piece 6.00 35 06/02/17 08:00 90 06/02/17 08:00 35 06/02/17 08:00 98.6 90 24 120/58 (78) 95 06/02/17 06:00 91 06/02/17 04:00 91 06/02/17 04:00 98.6 91 24 116/59 (78) 96 06/02/17 02:00 100 06/02/17 00:00 98.1 97 15 115/57 (76) 94 06/02/17 00:00 97 06/01/17 22:10 94 T-piece 6.00 35 06/01/17 22:00 109 06/01/17 20:00 105 06/01/17 20:00 98.1 105 12 122/59 (80) 95 06/01/17 19:17 97 T-piece 7.00 50 06/01/17 18:00 108 I/O 06/01/17 06/01/17 06/01/17 06/02/17 06/02/17 06/02/17 07:00 15:00 23:00 07:00 15:00 23:00 Intake Total 1068 ml 950 ml 876 ml 250 ml Output Total 2900 ml 3275 ml 3200 ml Balance -1832 ml -2325 ml -2324 ml 250 ml Intake IV Total 400 ml 350 ml 297 ml 250 ml Tube Feeding 548 ml 450 ml 579 ml Other 120 ml 150 ml Output Urine Total 2800 ml 3200 ml 2900 ml Stool Total 100 ml 75 ml 300 ml Physical Exam GENERAL: SKIN: Warm and dry. HEAD: Normocephalic. EYES: No scleral icterus. No injection or drainage. NECK: Supple, trachea midline. No JVD or lymphadenopathy. CARDIOVASCULAR: Regular rate and rhythm without murmurs, gallops, or rubs. RESPIRATORY: Breath sounds equal bilaterally. No accessory muscle use. GASTROINTESTINAL: Abdomen soft, non-tender, nondistended. MUSCULOSKELETAL: No cyanosis, or edema. BACK: Nontender without obvious deformity. No CVA tenderness. Assessment and Plan Problem List: (1) CAD (coronary artery disease) ICD Codes: I25.10 - Atherosclerotic heart disease of [place] coronary artery without angina pectoris (2) CHRONIC OBSTRUCTIVE PULMON DISEASE W ACUTE LOWER RESP INFCT ICD Codes: J44.0 - CHRONIC OBSTRUCTIVE PULMON DISEASE W ACUTE LOWER RESP INFCT Status: Acute (3) Cardiomyopathy ICD Codes: I42.9 - Cardiomyopathy Status: Acute (4) Cardiopulmonary arrest ICD Codes: I46.9 - Cardiac arrest, cause unspecified Status: Acute (5) Diabetes mellitus ICD Codes: E11.9 - Type 2 diabetes mellitus without complications Status: Acute Assessment and Plan 1.) Cardiomyopathy - euvolemic, continue coreg 25 mg bid, start altace 2.5 mg qd , kmh=141 05/23/17 2.) CAD - continue aspirin, statin held due to shock liver and elevated lfts 3.) s/p trach, awaiting terminal gauger care, s/p peg 05/25/17; family uncertain @ timing of care withdrawal, currently comfort care 4.) PAF - continue dig, cardizem, coreg, defer ac determination to neuro Aguila Early MD Jun 02, 2017 15:02
--- NOTE | 2017-06-02 15:06 | HHI.HCPN ---
Reason for visit a. To assist with evaluation and management of symptoms including: Encephalopathy. b. To assist medical decision maker(s) with: better understanding of current medical conditions; weighing benefits/burdens of medical treatment options; making medical treatment decisions. . Subjective/Interval History Patient seen and examined in ICU. No family at bedside. Also present Nicky Beaulieu LCSW. Discussed with Dr. Umanzor. Patient has been medically weaned from mechanical ventilation and currently on oxygen via t-piece. Off sedation, on Fentanyl 100mcg patch. Eyes open, does not track or blink to threat. Does not respond to voice or painful stimuli today. Afebrile. Vital signs stable. No new imaging or labs. No evidence of neurologic improvement. . Family/friend interactions Call to Jitednra, daughter / HCP to provide medical update. She understands ginny has been weaned off vent and is breathing on her own with oxygen via t- piece to trach. She does not want her mother placed back on mechanical ventilation. We talked about plan to transition to comfort measures on 06/06/17 , she confirms this is still the plan. We talked about hospice services. I offered hospice consult, she wants to think about this for now, seems like she would be open to considering hospice on Tuesday. We talked about DC tube feeding on Tuesday, long conversation about nutrition and she verbalizes understanding that tube feeding is artificially prolonging the dying process. Will call again Tuesday06/06/17 to further clarify goals. . Advance Directives Living Will: Never completed Health Care Surrogate: Never completed Durable Power of Dry Cell Assembly Machine Tender: Never completed Advance Directive Specifics Health Care Surrogate(s): No written advanced directives. The patient is unmarried and has just one child , daughter Jitendra who lives in [place]. Patient is not capacitated and very unlikely to regain capacity for decision-making, According to [place] Statutes, health care proxy decision making falls to Jitendra Garcia. . Objective Vital Signs Date Time Temp Pulse Resp B/P (MAP) Pulse Ox O2 Delivery O2 Flow Rate FiO2 06/02/17 14:00 89 06/02/17 12:00 98.6 96 23 112/55 (74) 91 06/02/17 12:00 35 06/02/17 12:00 96 06/02/17 10:00 97 06/02/17 08:15 96 T-piece 6.00 35 06/02/17 08:00 90 06/02/17 08:00 35 06/02/17 08:00 98.6 90 24 120/58 (78) 95 06/02/17 06:00 91 06/02/17 04:00 91 06/02/17 04:00 98.6 91 24 116/59 (78) 96 06/02/17 02:00 100 06/02/17 00:00 98.1 97 15 115/57 (76) 94 06/02/17 00:00 97 06/01/17 22:10 94 T-piece 6.00 35 06/01/17 22:00 109 06/01/17 20:00 105 06/01/17 20:00 98.1 105 12 122/59 (80) 95 06/01/17 19:17 97 T-piece 7.00 50 06/01/17 18:00 108 Intake & Output 06/02/17 06/02/17 07:00 19:00 Intake Total 876 ml 250 ml Output Total 3200 ml Balance -2324 ml 250 ml Intake IV Total 297 ml 250 ml Tube Feeding 579 ml Output Urine Total 2900 ml Stool Total 300 ml Physical Exam CONSTITUTIONAL/GENERAL: This is an adequately nourished patient, on mech vent off all sedation. TUBES: tracheostomy to vent. PEG, PIV, catheter. Bite block in mouth. EYES: eyes closed. CARDIOVASCULAR: Regular rate and rhythm without murmurs, gallops, or rubs. RESPIRATORY/CHEST: Unlabored respirations. Thick oral secretions noted. GASTROINTESTINAL: PEG tube in place. Tolerating tube feeding. Soft, obese. Bowel sounds present. MUSCULOSKELETAL: Extremities edema. No mottling or clubbing. NEUROLOGICAL: Unresponsive to my voice or exam. No withdraw to pain on extremities. PSYCHIATRIC: Unresponsive. . Diagnostic Tests Procedures * 05/25/17- PEG tube * 05/20/17 - tracheostomy/ bronchoscopy. * 05/07/17 - Intubation * 05/07 - Bilateral femoral arterial lines and left femoral heat exchange catheter . Assessment and Plan Disease Oriented Problem List: (1) anoxic brain injury, severe encephalopathy (2) PEA cardiac arrest 05/06/17 (3) respiratory failure s/p cardiac arrest and resuscitation (4) history of CHF, ejection fraction 15-20% in 2014 (5) coronary artery disease, moderate disease on cath in 2014 (6) insulin-dependent diabetes (7) COPD, moderate (8) history of seizure disorder (9) unspecified but significant psychiatric illness, disabling (10) hyperlipidemia (11) hypertension (12) GERD (13) peripheral neuropathy Symptom Scale: (1) dyspnea 0-10 Scale: Unable to quantify Comment: s/p tracheostomy on t-piece. . (2) encephalopathy 0-10 Scale: Unable to quantify Comment: remains unresponsive. Pertinent Non-Medical Issues Psychosocial: Unmarried, 1 daughter in [place], disabled via psychiatric diagnoses for many years. Was living alone. Spiritual: Unaffiliated yarsanism Legal: The patient is unmarried and has just one child, katarina Edward in [place]. The patient is very unlikely to regain capacity for decision-making, so Patty Lozano is the proxy decision-maker. Ethical issues impacting care: None. . Important Contacts * Cheyanne Jose, daughter/HCP: [phone] . Prognosis The patient's prognosis is extremely poor. She has underlying moderate or severe pulmonary and cardiac disease, and now has an apparent significant anoxic brain injury. . Code Status: No Code Plan * DECISION-MAKING: No written advanced directives. The patient is unmarried and has just one child, daughter Jitendra who lives in [place]. Patient is not capacitated and very unlikely to regain capacity for decision-making, According to [place] Statutes, health care proxy decision making falls to Jitendra Garcia. * NO CODE * GOALS: Spoke with katarina PattyMarileea vai phone. Call to katarina Ham / HCP to provide medical update. She understands patient has been weaned off vent and is breathing on her own with oxygen via t-piece to trach. She does not want her mother placed back on mechanical ventilation. We talked about plan to transition to comfort measures on 06/06/17, she confirms this is still the plan. We talked about hospice services. I offered hospice consult, she wants to think about this for now, seems like she would be open to considering hospice on Tuesday. We talked about DC tube feeding on Tuesday, long conversation about nutrition and she verbalizes understanding that tube feeding is artificially prolonging the dying process. Will call again Tuesday06/06/17 to further clarify goals. * SYMPTOMS: No evidence of pain, dyspnea, anxiety at this time. No seizures noted. Encephalopathy: due to anoxic brain injury, seizure, no evidence of neurologic recovery. No new medication recommendations at this time. * Palliative Care will continue to follow the patient during this hospitalization. . Attestation To help prompt me to consider important information that might be impacting today's encounter and assessment, information from prior notes written by myself or my colleagues may have been "brought forward" into today's note. My signature on this note, however, is an attestation that I personally performed the exam, history, and/or decision-making noted today, and, unless otherwise indicated, the interactions with patient, family, and staff as well as the review of records all occurred today. I also attest that the listed assessment and stated plan reflect my best clinical judgment today based on the combination of historical information, prior notes, and today's exam/ interactions. When time spent is documented, it refers only to time spent today by the signer, or if indicated, combined time spent today by collaborating physician/nurse practitioner. Isadora Zhao Jun 02, 2017 15:06
--- NOTE | 2017-06-02 22:02 | RADRPT ---
EXAM DATE/TIME: 06/02/2017 21:11 [facility] COMPARISON: CHEST SINGLE AP, May 26, 2017, 13:34. INDICATIONS : Short of breath MEDICAL HISTORY : Diabetes mellitus type II. Hypertension hyperlipidemia SURGICAL HISTORY : None. ENCOUNTER: Subsequent ACUITY: 3 weeks PAIN SCORE: Non-responsive. LOCATION: chest FINDINGS: A single portable frontal view the chest shows cardiomegaly with bibasilar pulmonary consolidations. No discernible effusions. Pulmonary vascular engorgement observed. Tracheostomy tube noted. CONCLUSION: Intra-alveolar pulmonary edema. Obi Beaulieu Jr., MD on June 02, 2017 at 22:00 Board Certified Radiologist. This report was verified electronically.
[2017-06-02] MEDS: RESP: ALBUTEROL 2.5 MG/3 ML NEB (SCH) NEB (23:58)
[2017-06-03] VITALS (14 sets, daily range): BP systolic 115–144; BP diastolic 58–65; PULSE 90–101; RESP 22–30; TEMP 97.7–98.9; O2SAT 95–100
[2017-06-03] MEDS: CHLORHEXIDINE GLUCONATE 2 % 1 PACK (2 CLOTHS) TOP SCH (04:00)
--- NOTE | 2017-06-03 06:28 | MB ---
cc: LILI MARX DATE OF CONSULTATION 06/02/2017 REASON FOR CONSULTATION Tracheostomy management status post cardiopulmonary arrest. HISTORY OF PRESENT ILLNESS This is a 56-year-old -[place] female who has a past history of chronic systolic heart failure, hypertension and diabetes and COPD as well as seizure disorder who was seen in the emergency room, brought via EVAC following a cardiac arrest. The patient was unresponsive and was in PEA and CPR was given, epinephrine and sodium bicarbonate 1 amp was given and subsequently the patient was intubated and was on ventilator support. Exact duration of CPR was not clear. The patient remained on ventilator support, on pressors, given IV saline boluses and started on IV Zosyn and vancomycin. EKG showed no acute changes. The patient arrived at the hospital at 05/07 and hypothyroid was initiated and the patient had to be sedated and then paralyzed. Echo showed a 25-30% ejection fraction and troponins were negative. On 05/08 hypothermia was completed and rewarming started and the patient was on pressors and inotropes. After completion of hypothermia protocol on 05/09 she was tachycardiac and was having a mild reaction to pain with withdrawal but had remained unresponsive. The patient's hemodynamics had improved and she was in A-fib which was treated. Over the next 4 days, neurologic evaluation revealed no significant neuro improvement and an EEG was done on 05/11 which showed severe anoxic brain injury. Palliative care was consulted. The patient's neuro status did not change and she remains comatose with multiorgan dysfunction. The patient was also maintained on ventilator support and the patient was also kept on antibiotic therapy. Subsequently a tracheostomy tube had to be placed as well as a PEG tube and the patient was noted to be hyponatremic but this was managed by Nephrology. Tracheostomy was on 05/20 and PEG tube was placed on 05/23 she was then tried on spontaneous breathing trials and she was tachypneic initially with low tidal volumes. Pressure support weaning was tried over the next 2 days and the PEG tube was placed on 05/25. Further attempts were made after that to wean the patient off the ventilator and she was then weaned off the vent on 05/30. Family was consulted with regards to further care and following consultation with palliative care the patient had been made a DNR and no further aggressive measures were been considered as well as withdrawal of care was discussed. Presently the patient is on a T-bar at 40% FIO2, breathing spontaneously and her eyes are open but there is no meaningful response to stimuli. PAST HISTORY As mentioned above. Significant for - 1. Hypertension. 2. Diabetes. 3. Chronic systolic heart failure. 4. COPD. 5. Bipolar disorder. 6. Obesity. ALLERGIES No drug allergies are listed. FAMILY HISTORY Noncontributory. PAST SURGICAL HISTORY 1. Cholecystectomy. 2. Tubal ligation. 3. Cardiac catheterizations. MEDICATIONS 1. Lasix 20 mg daily. 2. Ventolin 2 puffs p.r.n. 3. Atrovent 2 puffs q. 6 hours. 4. Glucotrol 5 mg b.i.d. 5. Gabapentin 100 mg at bedtime. 6. Lantus insulin 24 units subcu at bedtime. 7. Zocor 40 mg daily. 8. Diovan 160 mg daily. 9. Metformin 1000 mg b.i.d. 10. Ecotrin one daily. 11. Wellbutrin 150 mg t.i.d. 12. Depakote 500 mg daily. 13. Flonase nasal spray daily. REVIEW OF SYSTEMS The patient is comatose. HABITS No history of smoking. PHYSICAL EXAMINATION GENERAL: This is an obese middle-aged -[place] lady who is unresponsive. She has a tracheostomy tube in place with a T-bar. VITAL SIGNS: Blood pressure was 130/65, pulse was 96, respirations 18, temperature 98.7. HEENT: Head normocephalic. Pupils are reactive and irregular. Sclerae are injected. Tongue moist. NECK: Supple with minimal venous distension. Trache tube in place. CHEST: Coarse wheezes bilaterally with diminished breath sounds at the bases. HEART: The heart sounds are irregular, S1-S2 with no murmur. ABDOMEN: Soft, obese. No mass. PEG tube in place. Bowel sounds are active. EXTREMITIES: Decreased pulses. NEUROLOGIC: The patient does withdraw to stimuli rather sluggishly. Reflexes are not well elicited. Babinski is equivocal. SKIN: Dry and cool. IMPRESSION 14. Acute respiratory failure with hypercapnia. 15. Chronic systolic heart failure. 16. Status post cardiac arrest. 17. Hypoxic encephalopathy. 18. Exogenous obesity. 19. History of COPD. 20. Bipolar disorder. 21. Hypertension. 22. Diabetes. PLAN 1. The patient will be maintained on a T-bar at 35% FIO2. 2. Frequent tracheal suctioning and tracheal toilet will be done. 3. The patient will be given albuterol nebs b.i.d. and p.r.n. 4. Continue with antihypertensive medications and diabetic medications. 5. Repeat chest x-ray this of week. 6. The patient will be transferred to the medical floor. 7. Palliative Care as is following the patient and further decisions to be made after consultation with the family with regards to long-term care. Thank you Dr. Nascimento for this consultation. Lili Marx MD JWING/MICHAEL /9:02 PM /6:12 AM
[2017-06-03] MEDS: HYOSCYAMINE SOLN 0.125 MG/ML 15 ML BTL PEG SCH ×3 (06:34→20:48)
[2017-06-03] MEDS: RESP: ALBUTEROL 2.5 MG/3 ML NEB (SCH) NEB ×3 (07:38→23:16)
--- NOTE | 2017-06-03 08:19 | PD.CARD.PN ---
Subjective Subjective Remarks s/p tracheotomy, unresponsive off sedation Objective Medications Current Medications Medications (Trade) Dose Ordered Sig/Scarlett Route Start Time Stop Time Status Last Admin (Tylenol) 650 mg Q6H PRN PO 05/06/17 23:30 06/01/17 21:58 (Zofran Inj) 4 mg Q6H PRN IV PUSH 05/06/17 23:30 (Albuterol Neb) 2.5 mg Q2HR NEB PRN INH 05/06/17 23:30 05/30/17 05:10 Miscellaneous Information 1 Q361D XX 05/06/17 23:30 (Chlorhexidine 2% Cloth) Taper DAILY@04 TOP 05/07/17 04:00 05/03/18 03:59 06/02/17 01:38 (Chlorhexidine 2% Cloth) 3 pack UNSCH PRN TOP 05/06/17 23:30 (Aggie-Colace) 1 tab BID PO 05/07/17 09:00 06/02/17 21:18 (Milk Of Magnesia Liq) 30 ml Q12H PRN PO 05/06/17 23:30 (Dulcolax Supp) 10 mg DAILY PRN RECTAL 05/06/17 23:30 (Peridex 0.12% Liq) 15 ml BID@08,20 MT 05/07/17 08:00 06/02/17 21:06 (NS Flush) 2 ml BID IV FLUSH 05/07/17 09:00 06/02/17 21:17 (NS Flush) 2 ml UNSCH PRN IV FLUSH 05/07/17 04:30 (Lacrilube Opht Oint) 1 applic Q12HR EACH EYE 05/07/17 09:00 06/02/17 21:17 (Apresoline Inj) 20 mg Q4H PRN IV PUSH 05/13/17 11:15 05/21/17 02:57 (Depakene Liq) 250 mg BID NG 05/16/17 11:00 06/02/17 21:17 (Keppra Liq) 1,000 mg Q12HR NG 05/18/17 09:00 06/02/17 21:18 (Trandate Inj) 10 mg Q1H PRN IV 05/19/17 13:15 (Haldol Inj) 5 mg Q4H PRN IV 05/20/17 18:45 (Levsin Liq) 0.25 mg Q8HR PEG 05/29/17 22:00 06/03/17 06:34 (Duragesic 100 Mcg Patch.72 Hr) 1 patch Q3D T-DERMAL 06/02/17 14:00 06/02/17 14:21 Miscellaneous Information 1 Q3D T-DERMAL 06/05/17 14:00 (Albuterol Neb) 2.5 mg Q8HR NEB NEB 06/03/17 00:00 06/03/17 07:38 Vital Signs / I&O Vital Signs Date Time Temp Pulse Resp B/P (MAP) Pulse Ox O2 Delivery O2 Flow Rate FiO2 06/03/17 07:38 95 T-piece 6.00 40 06/03/17 06:00 93 06/03/17 04:00 98.9 97 29 130/61 (84) 99 06/03/17 04:00 97 06/03/17 02:00 101 06/03/17 00:00 98.7 96 25 115/58 (77) 95 06/03/17 00:00 96 06/02/17 22:40 94 T-piece 6.00 40 06/02/17 22:00 96 06/02/17 20:00 98.5 97 28 111/54 (73) 92 06/02/17 20:00 97 06/02/17 18:00 98 06/02/17 16:00 98.7 101 22 125/58 (80) 97 06/02/17 16:00 101 06/02/17 15:53 21 06/02/17 14:00 89 06/02/17 12:00 98.6 96 23 112/55 (74) 91 06/02/17 12:00 35 06/02/17 12:00 96 06/02/17 10:00 97 I/O 06/02/17 06/02/17 06/02/17 06/03/17 06/03/17 06/03/17 07:00 15:00 23:00 07:00 15:00 23:00 Intake Total 876 ml 250 ml 785 ml 617 ml Output Total 3200 ml 1900 ml 2000 ml Balance -2324 ml 250 ml -1115 ml -1383 ml Intake IV Total 297 ml 250 ml 227 ml Tube Feeding 579 ml 558 ml 497 ml Other 120 ml Output Urine Total 2900 ml 1900 ml 1900 ml Stool Total 300 ml 100 ml Physical Exam GENERAL: SKIN: Warm and dry. HEAD: Normocephalic. EYES: No scleral icterus. No injection or drainage. NECK: Supple, trachea midline. No JVD or lymphadenopathy. CARDIOVASCULAR: Regular rate and rhythm without murmurs, gallops, or rubs. RESPIRATORY: Breath sounds equal bilaterally. No accessory muscle use. GASTROINTESTINAL: Abdomen soft, non-tender, nondistended. MUSCULOSKELETAL: No cyanosis, or edema. BACK: Nontender without obvious deformity. No CVA tenderness. Assessment and Plan Problem List: (1) CAD (coronary artery disease) ICD Codes: I25.10 - Atherosclerotic heart disease of [place] coronary artery without angina pectoris (2) CHRONIC OBSTRUCTIVE PULMON DISEASE W ACUTE LOWER RESP INFCT ICD Codes: J44.0 - CHRONIC OBSTRUCTIVE PULMON DISEASE W ACUTE LOWER RESP INFCT Status: Acute (3) Cardiomyopathy ICD Codes: I42.9 - Cardiomyopathy Status: Acute (4) Cardiopulmonary arrest ICD Codes: I46.9 - Cardiac arrest, cause unspecified Status: Acute (5) Diabetes mellitus ICD Codes: E11.9 - Type 2 diabetes mellitus without complications Status: Acute Assessment and Plan 1.) Cardiomyopathy - euvolemic, continue coreg 25 mg bid, start altace 2.5 mg qd , lnw=[id number] 05/23/17 2.) CAD - continue aspirin, statin held due to shock liver and elevated lfts 3.) s/p trach, awaiting terminal operator care, s/p peg 05/25/17; family uncertain @ timing of care withdrawal, family considering comfort care; palliative care d/w family hospice 4.) PAF - continue dig, cardizem, coreg, defer ac determination to neuro Aguila Early MD Jun 03, 2017 08:19
[2017-06-03] MEDS: VALPROIC ACID SYRUP 250 MG/5 ML UDC NG SCH ×2 (08:34→20:47)
[2017-06-03] MEDS: DOCUSATE SODIUM 50 MG/SENNA 8.6 MG TAB PO SCH ×2 (08:34→20:48)
[2017-06-03] MEDS: levETIRAcetam 500 MG/5 ML UDC NG SCH ×2 (08:35→20:47)
[2017-06-03] MEDS: ARTIFICIAL TEARS OPTH OINT 3.5 APPLIC/3.5 GM TUBO EACH EYE SCH ×2 (08:36→20:47)
[2017-06-03] MEDS: SODIUM CHLORIDE 0.9% FLUSH 10 ML FLUSH IV FLUSH SCH ×2 (08:36→20:47)
[2017-06-03] MEDS: CHLORHEXIDINE 0.12% (ORAL KIT) 15 ML CUP MT SCH ×2 (08:39→20:47)
--- NOTE | 2017-06-03 08:57 | HHI.PR ---
Subjective Remarks Follow-up acute severe anoxic encephalopathy 06/03/17-patient seen and examined, no verbal does not follow commands. Strictly on minimal care pending 06/06/17 when family has decided that they will withdrawal care Objective Vitals Vital Signs Date Time Temp Pulse Resp B/P (MAP) Pulse Ox O2 Delivery O2 Flow Rate FiO2 06/03/17 07:38 95 T-piece 6.00 40 06/03/17 06:00 93 06/03/17 04:00 98.9 97 29 130/61 (84) 99 06/03/17 04:00 97 06/03/17 02:00 101 06/03/17 00:00 98.7 96 25 115/58 (77) 95 06/03/17 00:00 96 06/02/17 22:40 94 T-piece 6.00 40 06/02/17 22:00 96 06/02/17 20:00 98.5 97 28 111/54 (73) 92 06/02/17 20:00 97 06/02/17 18:00 98 06/02/17 16:00 98.7 101 22 125/58 (80) 97 06/02/17 16:00 101 06/02/17 15:53 21 06/02/17 14:00 89 06/02/17 12:00 98.6 96 23 112/55 (74) 91 06/02/17 12:00 35 06/02/17 12:00 96 06/02/17 10:00 97 I/O 06/02/17 06/02/17 06/02/17 06/03/17 06/03/17 06/03/17 07:00 15:00 23:00 07:00 15:00 23:00 Intake Total 876 ml 250 ml 785 ml 617 ml Output Total 3200 ml 1900 ml 2000 ml Balance -2324 ml 250 ml -1115 ml -1383 ml Intake IV Total 297 ml 250 ml 227 ml Tube Feeding 579 ml 558 ml 497 ml Other 120 ml Output Urine Total 2900 ml 1900 ml 1900 ml Stool Total 300 ml 100 ml Imaging Last Impressions Chest X-Ray 06/02/17 0000 Signed Impressions: Service Date/Time: May 21:11 - CONCLUSION: Intra-alveolar pulmonary edema. Obi Beaulieu Jr., MD Gastrostomy Tube Placement 05/25/17 0000 Signed Impressions: Service Date/Time: Thursday, May 25, 2017 13:18 - CONCLUSION: Uncomplicated gastrojejunostomy tube placement as above. Tyler Mcclelland MD Abdomen Ultrasound 05/07/17 0000 Signed Impressions: Service Date/Time: Sunday, May 07, 2017 14:19 - CONCLUSION: 1. Echogenic liver compatible with fatty infiltration or hepatocellular disease. 2. Cholecystectomy Laith Coe MD Head CT [id number]/06/[id number] Signed Impressions: Service Date/Time: Sunday, May 07, 2017 03:14 - CONCLUSION: Normal examination. Noé Ybarra MD CT Angiography 05/06/17 0000 Signed Impressions: Service Date/Time: Sunday, May 07, 2017 03:21 - CONCLUSION: 1. No pulmonary embolus. 2. Bibasilar areas of consolidation or atelectasis being worse on the left. There are minimal bilateral pleural effusions. Noé Ybarra MD Objective Remarks GENERAL: Toxic and does not follow command SKIN: Warm and dry. HEAD: Normocephalic. EYES: No scleral icterus. No injection or drainage. NECK: Supple, trachea midline. No JVD or lymphadenopathy. Trach in place CARDIOVASCULAR: Regular rate and rhythm without murmurs, gallops, or rubs. RESPIRATORY: Breath sounds equal bilaterally. No accessory muscle use. GASTROINTESTINAL: Abdomen soft, non-tender, nondistended. MUSCULOSKELETAL: No cyanosis, or edema. BACK: Nontender without obvious deformity. No CVA tenderness. A/P Problem List: (1) anoxic brain injury, severe encephalopathy Assessment and Plan 57-year-old female with Acute anoxic encephalopathy, severe Bipolar disorder Exophthalmus Acute hypercapnic respiratory failure COPD Tobacco abuse s/p PEA cardiac arrest Post cardiac arrest syndrome with shock (resolved) Afib with RVR - resolved. Chronic systolic heart failure with ejection fraction 15-20% (25-30 on echo) Nonobstructive Coronary artery disease Essential Hypertension, uncontrolled Hyperlipidemia GERD Transaminitis, probable ischemic hepatopathy. 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 - d/cd anything that causes pain, including lab draws, SQ medications with needles, medications not involved in symptom management. - no escalation of care - Weaned off Mechanical ventilation, comfortable on TP since 06/01/17 - keep tube feeds - Awaiting for possible withdrawal of care by family 06/06/17 - Continue with full DNR/ DNI Yasir Hargrove MD Jun 03, 2017 08:57
--- NOTE | 2017-06-03 19:36 | HHI.PR ---
Subjective Remarks No change in neuro status. On a T Bar at 35%. Open eyes, but not responsive. Objective Vital Signs Date Time Temp Pulse Resp B/P (MAP) Pulse Ox O2 Delivery O2 Flow Rate FiO2 06/03/17 18:00 99 06/03/17 16:00 99 06/03/17 16:00 98.6 99 22 144/64 (90) 96 06/03/17 14:00 100 06/03/17 12:00 98.0 98 26 133/63 (86) 99 06/03/17 12:00 98 06/03/17 10:00 95 06/03/17 08:00 96 06/03/17 08:00 97.7 96 24 122/60 (80) 100 06/03/17 07:38 95 T-piece 6.00 40 06/03/17 06:00 93 06/03/17 04:00 98.9 97 29 130/61 (84) 99 06/03/17 04:00 97 06/03/17 02:00 101 06/03/17 00:00 98.7 96 25 115/58 (77) 95 06/03/17 00:00 96 06/02/17 22:40 94 T-piece 6.00 40 06/02/17 22:00 96 06/02/17 20:00 98.5 97 28 111/54 (73) 92 06/02/17 20:00 97 I/O 06/02/17 06/02/17 06/02/17 06/03/17 06/03/17 06/03/17 07:00 15:00 23:00 07:00 15:00 23:00 Intake Total 876 ml 250 ml 785 ml 617 ml 493 ml Output Total 3200 ml 1900 ml 2000 ml 1450 ml Balance -2324 ml 250 ml -1115 ml -1383 ml -957 ml Intake IV Total 297 ml 250 ml 227 ml Tube Feeding 579 ml 558 ml 497 ml 493 ml Other 120 ml Output Urine Total 2900 ml 1900 ml 1900 ml 1450 ml Stool Total 300 ml 100 ml Objective Remarks GENERAL: This is an obese middle-aged -[place] lady who is unresponsive. She has a tracheostomy tube in place with a T-bar. HEENT: Head normocephalic. Pupils are reactive and irregular. Sclerae are injected. Tongue moist. NECK: Supple with minimal venous distension. Trach tube in place. CHEST: Occ wheezes bilaterally with diminished breath sounds at the bases. HEART: The heart sounds are irregular, S1-S2 with no murmur. ABDOMEN: Soft, obese. No mass. PEG tube in place. Bowel sounds are active. EXTREMITIES: Decreased pulses. NEUROLOGIC: The patient does withdraw to stimuli rather sluggishly. Reflexes are not well elicited. Babinski is equivocal. SKIN: Dry and cool. Assessment and Plan Assessment and Plan IMPRESSION 14. Acute respiratory failure with hypercapnia. 15. Chronic systolic heart failure. 16. Status post cardiac arrest. 17. Hypoxic encephalopathy. 18. Exogenous obesity. 19. History of COPD. 20. Bipolar disorder. 21. Hypertension. 22. Diabetes. Plan : 1. Leave on T Bar 40 %. 2. Nebs qid , duoneb. 3. Tube feeds at 60 CC Jevity. 4. BMP , CXR. 5. Suction and lavage trach PRN. 6. Transfer to [facility] Garland Marx MD Jun 03, 2017 19:36
[2017-06-04] VITALS (17 sets, daily range): BP systolic 94–135; BP diastolic 53–67; PULSE 79–142; RESP 21–29; TEMP 97.2–98.9; O2SAT 92–100
[2017-06-04] MEDS: CHLORHEXIDINE GLUCONATE 2 % 1 PACK (2 CLOTHS) TOP SCH (04:00)
[2017-06-04] MEDS: HYOSCYAMINE SOLN 0.125 MG/ML 15 ML BTL PEG SCH ×3 (05:44→21:01)
[2017-06-04] MEDS: RESP: ALBUTEROL 2.5 MG/3 ML NEB (SCH) NEB ×2 (08:36→15:25)
[2017-06-04] MEDS: VALPROIC ACID SYRUP 250 MG/5 ML UDC NG SCH ×2 (08:59→20:43)
[2017-06-04] MEDS: ARTIFICIAL TEARS OPTH OINT 3.5 APPLIC/3.5 GM TUBO EACH EYE SCH ×2 (08:59→20:45)
[2017-06-04] MEDS: levETIRAcetam 500 MG/5 ML UDC NG SCH ×2 (08:59→20:43)
[2017-06-04] MEDS: DOCUSATE SODIUM 50 MG/SENNA 8.6 MG TAB PO SCH ×2 (09:00→20:43)
[2017-06-04] MEDS: SODIUM CHLORIDE 0.9% FLUSH 10 ML FLUSH IV FLUSH SCH ×2 (09:59→20:43)
[2017-06-04] MEDS: CHLORHEXIDINE 0.12% (ORAL KIT) 15 ML CUP MT SCH ×2 (09:59→20:44)
--- NOTE | 2017-06-04 10:21 | PD.CARD.PN ---
Subjective Subjective Remarks s/p tracheotomy, unresponsive off sedation Objective Medications Current Medications Medications (Trade) Dose Ordered Sig/Scarlett Route Start Time Stop Time Status Last Admin (Tylenol) 650 mg Q6H PRN PO 05/06/17 23:30 06/01/17 21:58 (Zofran Inj) 4 mg Q6H PRN IV PUSH 05/06/17 23:30 (Albuterol Neb) 2.5 mg Q2HR NEB PRN INH 05/06/17 23:30 05/30/17 05:10 Miscellaneous Information 1 Q361D XX 05/06/17 23:30 (Chlorhexidine 2% Cloth) Taper DAILY@04 TOP 05/07/17 04:00 05/03/18 03:59 06/02/17 01:38 (Chlorhexidine 2% Cloth) 3 pack UNSCH PRN TOP 05/06/17 23:30 (Aggie-Colace) 1 tab BID PO 05/07/17 09:00 06/03/17 20:48 (Milk Of Magnesia Liq) 30 ml Q12H PRN PO 05/06/17 23:30 (Dulcolax Supp) 10 mg DAILY PRN RECTAL 05/06/17 23:30 (Peridex 0.12% Liq) 15 ml BID@08,20 MT 05/07/17 08:00 06/04/17 09:59 (NS Flush) 2 ml BID IV FLUSH 05/07/17 09:00 06/04/17 09:59 (NS Flush) 2 ml UNSCH PRN IV FLUSH 05/07/17 04:30 (Lacrilube Opht Oint) 1 applic Q12HR EACH EYE 05/07/17 09:00 06/04/17 08:59 (Apresoline Inj) 20 mg Q4H PRN IV PUSH 05/13/17 11:15 05/21/17 02:57 (Depakene Liq) 250 mg BID NG 05/16/17 11:00 06/04/17 08:59 (Keppra Liq) 1,000 mg Q12HR NG 05/18/17 09:00 06/04/17 08:59 (Trandate Inj) 10 mg Q1H PRN IV 05/19/17 13:15 (Haldol Inj) 5 mg Q4H PRN IV 05/20/17 18:45 (Levsin Liq) 0.25 mg Q8HR PEG 05/29/17 22:00 06/03/17 20:48 (Duragesic 100 Mcg Patch.72 Hr) 1 patch Q3D T-DERMAL 06/02/17 14:00 06/02/17 14:21 Miscellaneous Information 1 Q3D T-DERMAL 06/05/17 14:00 (Albuterol Neb) 2.5 mg Q8HR NEB NEB 06/03/17 00:00 06/04/17 08:36 Vital Signs / I&O Vital Signs Date Time Temp Pulse Resp B/P (MAP) Pulse Ox O2 Delivery O2 Flow Rate FiO2 06/04/17 10:00 88 06/04/17 08:39 100 T-piece 35 06/04/17 08:00 98.2 90 26 134/67 (89) 95 06/04/17 08:00 88 06/04/17 06:00 88 06/04/17 04:00 98.5 89 29 118/60 (79) 92 06/04/17 04:00 91 06/04/17 03:30 98 T-piece 5.00 35 06/04/17 02:00 91 06/04/17 00:00 92 06/04/17 00:00 98.9 92 28 135/63 (87) 92 06/03/17 22:00 94 06/03/17 20:00 98.8 96 30 135/65 (88) 95 06/03/17 20:00 96 06/03/17 19:19 98 T-piece 5.00 40 06/03/17 18:00 99 06/03/17 16:00 99 06/03/17 16:00 98.6 99 22 144/64 (90) 96 06/03/17 14:00 100 06/03/17 12:00 98.0 98 26 133/63 (86) 99 06/03/17 12:00 98 I/O 06/03/17 06/03/17 06/03/17 06/04/17 06/04/17 06/04/17 07:00 15:00 23:00 07:00 15:00 23:00 Intake Total 617 ml 493 ml 565 ml Output Total 2000 ml 1450 ml 1350 ml Balance -1383 ml -957 ml -785 ml Tube Feeding 497 ml 493 ml 505 ml Other 120 ml 60 ml Output Urine Total 1900 ml 1450 ml 1300 ml Stool Total 100 ml 50 ml Physical Exam GENERAL: SKIN: Warm and dry. HEAD: Normocephalic. EYES: No scleral icterus. No injection or drainage. NECK: Supple, trachea midline. No JVD or lymphadenopathy. CARDIOVASCULAR: Regular rate and rhythm without murmurs, gallops, or rubs. RESPIRATORY: Breath sounds equal bilaterally. No accessory muscle use. GASTROINTESTINAL: Abdomen soft, non-tender, nondistended. MUSCULOSKELETAL: No cyanosis, or edema. BACK: Nontender without obvious deformity. No CVA tenderness. Assessment and Plan Problem List: (1) CAD (coronary artery disease) ICD Codes: I25.10 - Atherosclerotic heart disease of [place] coronary artery without angina pectoris (2) CHRONIC OBSTRUCTIVE PULMON DISEASE W ACUTE LOWER RESP INFCT ICD Codes: J44.0 - CHRONIC OBSTRUCTIVE PULMON DISEASE W ACUTE LOWER RESP INFCT Status: Acute (3) Cardiomyopathy ICD Codes: I42.9 - Cardiomyopathy Status: Acute (4) Cardiopulmonary arrest ICD Codes: I46.9 - Cardiac arrest, cause unspecified Status: Acute (5) Diabetes mellitus ICD Codes: E11.9 - Type 2 diabetes mellitus without complications Status: Acute Assessment and Plan 1.) Cardiomyopathy - euvolemic, continue coreg 25 mg bid, start altace 2.5 mg qd , xkg=203 05/23/17 2.) CAD - continue aspirin, statin held due to shock liver and elevated lfts 3.) s/p trach, awaiting half-way care, s/p peg 05/25/17; family uncertain @ timing of care withdrawal, family considering comfort care; palliative care d/w family hospice 4.) PAF - continue dig, cardizem, coreg, defer ac determination to neuro Aguila Early MD Jun 04, 2017 10:21
--- NOTE | 2017-06-04 11:57 | HHI.PR ---
Subjective Remarks Follow-up acute severe anoxic encephalopathy 06/03/17-patient seen and examined, no verbal does not follow commands. Strictly on minimal care pending 06/06/17 when family has decided that they will withdrawal care 06/04/17-patient seen and examined, nonverbal, does not follow any command, on T -bar 40%. Afebrile Objective Vitals Vital Signs Date Time Temp Pulse Resp B/P (MAP) Pulse Ox O2 Delivery O2 Flow Rate FiO2 06/04/17 11:32 135 06/04/17 10:00 88 06/04/17 08:39 100 T-piece 35 06/04/17 08:00 98.2 90 26 134/67 (89) 95 06/04/17 08:00 88 06/04/17 06:00 88 06/04/17 04:00 98.5 89 29 118/60 (79) 92 06/04/17 04:00 91 06/04/17 03:30 98 T-piece 5.00 35 06/04/17 02:00 91 06/04/17 00:00 92 06/04/17 00:00 98.9 92 28 135/63 (87) 92 06/03/17 22:00 94 06/03/17 20:00 98.8 96 30 135/65 (88) 95 06/03/17 20:00 96 06/03/17 19:19 98 T-piece 5.00 40 06/03/17 18:00 99 06/03/17 16:00 99 06/03/17 16:00 98.6 99 22 144/64 (90) 96 06/03/17 14:00 100 06/03/17 12:00 98.0 98 26 133/63 (86) 99 06/03/17 12:00 98 I/O 06/03/17 06/03/17 06/03/17 06/04/17 06/04/17 06/04/17 07:00 15:00 23:00 07:00 15:00 23:00 Intake Total 617 ml 493 ml 565 ml Output Total 2000 ml 1450 ml 1350 ml Balance -1383 ml -957 ml -785 ml Tube Feeding 497 ml 493 ml 505 ml Other 120 ml 60 ml Output Urine Total 1900 ml 1450 ml 1300 ml Stool Total 100 ml 50 ml Imaging Last Impressions Chest X-Ray 06/02/17 0000 Signed Impressions: Service Date/Time: May 21:11 - CONCLUSION: Intra-alveolar pulmonary edema. Obi Beaulieu Jr., MD Gastrostomy Tube Placement 05/25/17 0000 Signed Impressions: Service Date/Time: Thursday, May 25, 2017 13:18 - CONCLUSION: Uncomplicated gastrojejunostomy tube placement as above. Tyler Mcclelland MD Abdomen Ultrasound 05/07/17 0000 Signed Impressions: Service Date/Time: Sunday, May 07, 2017 14:19 - CONCLUSION: 1. Echogenic liver compatible with fatty infiltration or hepatocellular disease. 2. Cholecystectomy Laith Coe MD Head CT [id number] Signed Impressions: Service Date/Time: Sunday, May 07, 2017 03:14 - CONCLUSION: Normal examination. Noé Ybarra MD CT Angiography 05/06/17 0000 Signed Impressions: Service Date/Time: Sunday, May 07, 2017 03:21 - CONCLUSION: 1. No pulmonary embolus. 2. Bibasilar areas of consolidation or atelectasis being worse on the left. There are minimal bilateral pleural effusions. Noé Ybarra MD Objective Remarks GENERAL: Lethargic and does not follow command SKIN: Warm and dry. HEAD: Normocephalic. EYES: No scleral icterus. No injection or drainage. NECK: Supple, trachea midline. No JVD or lymphadenopathy. Trach in place CARDIOVASCULAR: Regular rate and rhythm without murmurs, gallops, or rubs. RESPIRATORY: Breath sounds equal bilaterally. No accessory muscle use. GASTROINTESTINAL: Abdomen soft, non-tender, nondistended. MUSCULOSKELETAL: No cyanosis, or edema. BACK: Nontender without obvious deformity. No CVA tenderness. A/P Problem List: (1) anoxic brain injury, severe encephalopathy Assessment and Plan 57-year-old female with Acute anoxic encephalopathy, severe Bipolar disorder Exophthalmus Acute hypercapnic respiratory failure COPD Tobacco abuse s/p PEA cardiac arrest Post cardiac arrest syndrome with shock (resolved) Afib with RVR - resolved. Chronic systolic heart failure with ejection fraction 15-20% (25-30 on echo) Nonobstructive Coronary artery disease Essential Hypertension, uncontrolled Hyperlipidemia GERD Transaminitis, probable ischemic hepatopathy. 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 - d/cd anything that causes pain, including lab draws, SQ medications with needles, medications not involved in symptom management. - no escalation of care - Weaned off Mechanical ventilation, comfortable on TP since 06/01/17 - keep tube feeds - On T-bar 40%, continue trach care. Appreciate input from pulmonary medicine - Awaiting for possible withdrawal of care by family 06/06/17 - Continue with full DNR/ DNI Yasir Hargrove MD Jun 04, 2017 11:57
--- NOTE | 2017-06-04 15:34 | HHI.PR ---
Subjective Remarks No change in neuro status. On a T Bar at 30%. Open eyes, but not responsive. Tolerates feeds. Objective Vital Signs Date Time Temp Pulse Resp B/P (MAP) Pulse Ox O2 Delivery O2 Flow Rate FiO2 06/04/17 14:00 142 06/04/17 12:00 97.9 129 21 94/53 (67) 94 06/04/17 12:00 129 06/04/17 11:32 135 06/04/17 10:00 88 06/04/17 08:39 100 T-piece 35 06/04/17 08:00 98.2 90 26 134/67 (89) 95 06/04/17 08:00 88 06/04/17 06:00 88 06/04/17 04:00 98.5 89 29 118/60 (79) 92 06/04/17 04:00 91 06/04/17 03:30 98 T-piece 5.00 35 06/04/17 02:00 91 06/04/17 00:00 92 06/04/17 00:00 98.9 92 28 135/63 (87) 92 06/03/17 22:00 94 06/03/17 20:00 98.8 96 30 135/65 (88) 95 06/03/17 20:00 96 06/03/17 19:19 98 T-piece 5.00 40 06/03/17 18:00 99 06/03/17 16:00 99 06/03/17 16:00 98.6 99 22 144/64 (90) 96 I/O 06/03/17 06/03/17 06/03/17 06/04/17 06/04/17 06/04/17 07:00 15:00 23:00 07:00 15:00 23:00 Intake Total 617 ml 493 ml 565 ml Output Total 2000 ml 1450 ml 1350 ml Balance -1383 ml -957 ml -785 ml Tube Feeding 497 ml 493 ml 505 ml Other 120 ml 60 ml Output Urine Total 1900 ml 1450 ml 1300 ml Stool Total 100 ml 50 ml Objective Remarks GENERAL: This is an obese middle-aged -[place] lady who is unresponsive. She has a tracheostomy tube in place with a T-bar. HEENT: Head normocephalic. Pupils are reactive and irregular. Sclerae are injected. Tongue moist. NECK: Supple with minimal venous distension. Trach tube in place. CHEST: Occ wheezes bilaterally with diminished breath sounds at the bases.Occ Crackles. HEART: The heart sounds are irregular, S1-S2 with no murmur. ABDOMEN: Soft, obese. No mass. PEG tube in place. Bowel sounds are active. EXTREMITIES: Decreased pulses. NEUROLOGIC: The patient does withdraw to stimuli rather sluggishly. Reflexes are not well elicited. SKIN: Dry and cool. Assessment and Plan Assessment and Plan IMPRESSION 14. Acute respiratory failure with hypercapnia. 15. Chronic systolic heart failure. 16. Status post cardiac arrest. 17. Hypoxic encephalopathy. 18. Exogenous obesity. 19. History of COPD. 20. Bipolar disorder. 21. Hypertension. 22. Diabetes. Plan : 1. Leave on T Bar 40 %. 2. Nebs qid , duoneb. 3. Tube feeds at 60 CC Jevity. 4. BMP , CBC in am 5. Suction and lavage trach PRN. 6. Transfer to [facility] Garland Marx MD Jun 04, 2017 15:34
[2017-06-05] VITALS (13 sets, daily range): BP systolic 100–107; BP diastolic 56–61; PULSE 0–104; RESP 32–46; TEMP 97.8–98.8; O2SAT 93–97
[2017-06-05] MEDS: RESP: ALBUTEROL 2.5 MG/3 ML NEB (SCH) NEB ×3 (00:20→16:14)
[2017-06-05] MEDS: CHLORHEXIDINE GLUCONATE 2 % 1 PACK (2 CLOTHS) TOP SCH (04:00)
[2017-06-05] MEDS: HYOSCYAMINE SOLN 0.125 MG/ML 15 ML BTL PEG SCH ×2 (06:00→13:41)
[2017-06-05] MEDS: DOCUSATE SODIUM 50 MG/SENNA 8.6 MG TAB PO SCH (08:23)
[2017-06-05] MEDS: VALPROIC ACID SYRUP 250 MG/5 ML UDC NG SCH (08:23)
[2017-06-05] MEDS: levETIRAcetam 500 MG/5 ML UDC NG SCH (08:24)
[2017-06-05] MEDS: SODIUM CHLORIDE 0.9% FLUSH 10 ML FLUSH IV FLUSH SCH (08:31)
[2017-06-05] MEDS: ARTIFICIAL TEARS OPTH OINT 3.5 APPLIC/3.5 GM TUBO EACH EYE SCH (08:31)
[2017-06-05] MEDS: CHLORHEXIDINE 0.12% (ORAL KIT) 15 ML CUP MT SCH (08:32)
--- NOTE | 2017-06-05 09:02 | HHI.PR ---
Subjective Remarks Follow-up acute severe anoxic encephalopathy 06/03/17-patient seen and examined, no verbal does not follow commands. Strictly on minimal care pending 06/06/17 when family has decided that they will withdrawal care 06/04/17-patient seen and examined, nonverbal, does not follow any command, on T -bar 40%. Afebrile 06/05/17-patient seen and examined nonverbal, has right eye open but does not follow any command Objective Vitals Vital Signs Date Time Temp Pulse Resp B/P (MAP) Pulse Ox O2 Delivery O2 Flow Rate FiO2 06/05/17 06:00 82 06/05/17 04:00 83 06/05/17 04:00 98.8 83 37 106/60 (75) 95 06/05/17 02:00 80 06/05/17 00:00 97.8 80 32 107/59 (75) 97 06/05/17 00:00 80 06/04/17 22:00 84 06/04/17 20:27 96 T-piece 5.00 35 06/04/17 20:00 97.2 79 21 116/56 (76) 94 06/04/17 20:00 79 06/04/17 19:00 96 T-Piece 35 06/04/17 18:00 79 06/04/17 16:00 82 06/04/17 16:00 97.9 82 28 111/58 (75) 95 06/04/17 15:36 90 06/04/17 14:00 142 06/04/17 12:00 97.9 129 21 94/53 (67) 94 06/04/17 12:00 129 06/04/17 11:32 135 06/04/17 10:00 88 I/O 06/04/17 06/04/17 06/04/17 06/05/17 06/05/17 06/05/17 07:00 15:00 23:00 07:00 15:00 23:00 Intake Total 565 ml 602 ml 293 ml Output Total 1350 ml 1800.0 ml 800 ml Balance -785 ml -1198.0 ml -507 ml Tube Feeding 505 ml 482 ml 233 ml Other 60 ml 120 ml 60 ml Output Urine Total 1300 ml 1200 ml 750 ml Stool Total 50 ml 500 ml 50 ml Tube Feeding Residual Discard 100.0 ml # Bowel Movements 1 Objective Remarks GENERAL: Lethargic and does not follow command SKIN: Warm and dry. HEAD: Normocephalic. EYES: No scleral icterus. No injection or drainage. Right eye open NECK: Supple, trachea midline. No JVD or lymphadenopathy. Trach in place CARDIOVASCULAR: Regular rate and rhythm without murmurs, gallops, or rubs. RESPIRATORY: Breath sounds equal bilaterally. No accessory muscle use. GASTROINTESTINAL: Abdomen soft, non-tender, nondistended. MUSCULOSKELETAL: No cyanosis, or edema. BACK: Nontender without obvious deformity. No CVA tenderness. A/P Problem List: (1) anoxic brain injury, severe encephalopathy Assessment and Plan 57-year-old female with Acute anoxic encephalopathy, severe Bipolar disorder Exophthalmus Acute hypercapnic respiratory failure COPD Tobacco abuse s/p PEA cardiac arrest Post cardiac arrest syndrome with shock (resolved) Afib with RVR - resolved. Chronic systolic heart failure with ejection fraction 15-20% (25-30 on echo) Nonobstructive Coronary artery disease Essential Hypertension, uncontrolled Hyperlipidemia GERD Transaminitis, probable ischemic hepatopathy. 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 - d/cd anything that causes pain, including lab draws, SQ medications with needles, medications not involved in symptom management. - no escalation of care - Weaned off Mechanical ventilation, comfortable on TP since 06/01/17 - keep tube feeds at 30 cc/hour - On T-bar 40%, continue trach care. Appreciate input from pulmonary medicine - Awaiting for possible withdrawal of care by family tomorrow Tuesday06/06/17 - Continue with full DNR/ DNI Yasir Hargrove MD Jun 05, 2017 09:02
--- NOTE | 2017-06-05 10:41 | PD.CARD.PN ---
Subjective Subjective Remarks s/p tracheotomy, unresponsive off sedation Objective Medications Current Medications Medications (Trade) Dose Ordered Sig/Scarlett Route Start Time Stop Time Status Last Admin (Tylenol) 650 mg Q6H PRN PO 05/06/17 23:30 06/01/17 21:58 (Zofran Inj) 4 mg Q6H PRN IV PUSH 05/06/17 23:30 (Albuterol Neb) 2.5 mg Q2HR NEB PRN INH 05/06/17 23:30 05/30/17 05:10 Miscellaneous Information 1 Q361D XX 05/06/17 23:30 (Chlorhexidine 2% Cloth) Taper DAILY@04 TOP 05/07/17 04:00 05/03/18 03:59 06/02/17 01:38 (Chlorhexidine 2% Cloth) 3 pack UNSCH PRN TOP 05/06/17 23:30 (Aggie-Colace) 1 tab BID PO 05/07/17 09:00 06/05/17 08:23 (Milk Of Magnesia Liq) 30 ml Q12H PRN PO 05/06/17 23:30 (Dulcolax Supp) 10 mg DAILY PRN RECTAL 05/06/17 23:30 (Peridex 0.12% Liq) 15 ml BID@08,20 MT 05/07/17 08:00 06/05/17 08:32 (NS Flush) 2 ml BID IV FLUSH 05/07/17 09:00 06/05/17 08:31 (NS Flush) 2 ml UNSCH PRN IV FLUSH 05/07/17 04:30 (Lacrilube Opht Oint) 1 applic Q12HR EACH EYE 05/07/17 09:00 06/05/17 08:31 (Apresoline Inj) 20 mg Q4H PRN IV PUSH 05/13/17 11:15 05/21/17 02:57 (Depakene Liq) 250 mg BID NG 05/16/17 11:00 06/05/17 08:23 (Keppra Liq) 1,000 mg Q12HR NG 05/18/17 09:00 06/05/17 08:24 (Trandate Inj) 10 mg Q1H PRN IV 05/19/17 13:15 (Haldol Inj) 5 mg Q4H PRN IV 05/20/17 18:45 (Levsin Liq) 0.25 mg Q8HR PEG 05/29/17 22:00 06/03/17 20:48 (Duragesic 100 Mcg Patch.72 Hr) 1 patch Q3D T-DERMAL 06/02/17 14:00 06/02/17 14:21 Miscellaneous Information 1 Q3D T-DERMAL 06/05/17 14:00 (Albuterol Neb) 2.5 mg Q8HR NEB NEB 06/03/17 00:00 06/05/17 09:25 Vital Signs / I&O Vital Signs Date Time Temp Pulse Resp B/P (MAP) Pulse Ox O2 Delivery O2 Flow Rate FiO2 06/05/17 10:00 104 06/05/17 09:26 97 T-piece 35 06/05/17 08:00 104 06/05/17 08:00 98.2 83 36 100/61 (74) 96 06/05/17 07:00 T-Piece 5.00 35 06/05/17 06:00 82 06/05/17 04:00 83 06/05/17 04:00 98.8 83 37 106/60 (75) 95 06/05/17 02:00 80 06/05/17 00:00 97.8 80 32 107/59 (75) 97 06/05/17 00:00 80 06/04/17 22:00 84 06/04/17 20:27 96 T-piece 5.00 35 06/04/17 20:00 97.2 79 21 116/56 (76) 94 06/04/17 20:00 79 06/04/17 19:00 96 T-Piece 35 06/04/17 18:00 79 06/04/17 16:00 82 06/04/17 16:00 97.9 82 28 111/58 (75) 95 06/04/17 15:36 90 06/04/17 14:00 142 06/04/17 12:00 97.9 129 21 94/53 (67) 94 06/04/17 12:00 129 06/04/17 11:32 135 I/O 06/04/17 06/04/17 06/04/17 06/05/17 06/05/17 06/05/17 07:00 15:00 23:00 07:00 15:00 23:00 Intake Total 565 ml 602 ml 293 ml Output Total 1350 ml 1800.0 ml 800 ml Balance -785 ml -1198.0 ml -507 ml Tube Feeding 505 ml 482 ml 233 ml Other 60 ml 120 ml 60 ml Output Urine Total 1300 ml 1200 ml 750 ml Stool Total 50 ml 500 ml 50 ml Tube Feeding Residual Discard 100.0 ml # Bowel Movements 1 Physical Exam GENERAL: SKIN: Warm and dry. HEAD: Normocephalic. EYES: No scleral icterus. No injection or drainage. NECK: Supple, trachea midline. No JVD or lymphadenopathy. CARDIOVASCULAR: Regular rate and rhythm without murmurs, gallops, or rubs. RESPIRATORY: Breath sounds equal bilaterally. No accessory muscle use. GASTROINTESTINAL: Abdomen soft, non-tender, nondistended. MUSCULOSKELETAL: No cyanosis, or edema. BACK: Nontender without obvious deformity. No CVA tenderness. Assessment and Plan Problem List: (1) CAD (coronary artery disease) ICD Codes: I25.10 - Atherosclerotic heart disease of [place] coronary artery without angina pectoris (2) CHRONIC OBSTRUCTIVE PULMON DISEASE W ACUTE LOWER RESP INFCT ICD Codes: J44.0 - CHRONIC OBSTRUCTIVE PULMON DISEASE W ACUTE LOWER RESP INFCT Status: Acute (3) Cardiomyopathy ICD Codes: I42.9 - Cardiomyopathy Status: Acute (4) Cardiopulmonary arrest ICD Codes: I46.9 - Cardiac arrest, cause unspecified Status: Acute (5) Diabetes mellitus ICD Codes: E11.9 - Type 2 diabetes mellitus without complications Status: Acute Assessment and Plan 1.) Cardiomyopathy - euvolemic, continue coreg 25 mg bid, start altace 2.5 mg qd , qfg=[id number] 05/23/17 2.) CAD - continue aspirin, statin held due to shock liver and elevated lfts 3.) s/p trach, awaiting oil heaterman care, s/p peg 05/25/17; family uncertain @ timing of care withdrawal, family considering comfort care; palliative care d/w family hospice 4.) PAF - continue dig, cardizem, coreg, defer ac determination to neuro Aguila Early MD Jun 05, 2017 10:41
[2017-06-05] MEDS: fentaNYL 100 MCG/HR PATCH T-DERMAL SCH (13:41)
[2017-06-05] MEDS ORDERED: REMOVE OLD DURAGESIC (FENTANYL) PATCH T-DERMAL SCH (14:00)
--- NOTE | 2017-06-05 15:47 | HHI.PR ---
Subjective Remarks No change in neuro status. On a T Bar at 30%.Sats 96 Open eyes, but not responsive. Tolerates feeds.No fever, or seizures Objective Vital Signs Date Time Temp Pulse Resp B/P (MAP) Pulse Ox O2 Delivery O2 Flow Rate FiO2 06/05/17 14:41 16 06/05/17 14:00 104 06/05/17 12:00 98.0 84 46 102/56 (71) 93 06/05/17 12:00 104 06/05/17 10:00 104 06/05/17 09:26 97 T-piece 35 06/05/17 08:00 104 06/05/17 08:00 98.2 83 36 100/61 (74) 96 06/05/17 07:00 T-Piece 5.00 35 06/05/17 06:00 82 06/05/17 04:00 83 06/05/17 04:00 98.8 83 37 106/60 (75) 95 06/05/17 02:00 80 06/05/17 00:00 97.8 80 32 107/59 (75) 97 06/05/17 00:00 80 06/04/17 22:00 84 06/04/17 20:27 96 T-piece 5.00 35 06/04/17 20:00 97.2 79 21 116/56 (76) 94 06/04/17 20:00 79 06/04/17 19:00 96 T-Piece 35 06/04/17 18:00 79 06/04/17 16:00 82 06/04/17 16:00 97.9 82 28 111/58 (75) 95 I/O 06/04/17 06/04/17 06/04/17 06/05/17 06/05/17 06/05/17 07:00 15:00 23:00 07:00 15:00 23:00 Intake Total 565 ml 602 ml 293 ml Output Total 1350 ml 1800.0 ml 800 ml Balance -785 ml -1198.0 ml -507 ml Tube Feeding 505 ml 482 ml 233 ml Other 60 ml 120 ml 60 ml Output Urine Total 1300 ml 1200 ml 750 ml Stool Total 50 ml 500 ml 50 ml Tube Feeding Residual Discard 100.0 ml # Bowel Movements 1 Objective Remarks GENERAL: This is an obese middle-aged -[place] lady who is unresponsive. She has a tracheostomy tube in place with a T-bar. HEENT: Head normocephalic. Pupils are reactive and irregular. Sclerae are injected. Tongue moist. NECK: Supple with minimal venous distension. Trach tube in place. CHEST: Occ wheezes bilaterally with diminished breath sounds at the bases.No Crackles. HEART: The heart sounds are irregular, S1-S2 with no murmur. ABDOMEN: Soft, obese. No mass. PEG tube in place. Bowel sounds are active. EXTREMITIES: Decreased pulses. NEUROLOGIC: The patient does withdraw to stimuli rather sluggishly. Reflexes are not elicited. SKIN: Dry and cool. Assessment and Plan Assessment and Plan IMPRESSION 14. Acute respiratory failure with hypercapnia. 15. Chronic systolic heart failure. 16. Status post cardiac arrest. 17. Hypoxic encephalopathy. 18. Exogenous obesity. 19. History of COPD. 20. Bipolar disorder. 21. Hypertension. 22. Diabetes. Plan : 1. Leave on T Bar 35 %. 2. Nebs qid , duoneb. 3. Tube feeds at 60 CC Jevity. 4. Cont antiseizure meds. 5. Suction and lavage trach PRN. 6. Transfer to [facility] Garland Marx MD Jun 05, 2017 15:47
--- NOTE | 2017-06-05 18:39 | DEATH SUM ---
Pronouncement Date Pronounced : Jun 05, 2017 Time Of : 18:24 Pronouncement Called to pronounce of patient. Identified patient as Meli Garcia with wrist band MR# [id number]. Patient with no cardiac activity in 2 separate leads and no palpable/auscible cardiac activity. Patient with no spontaneous respirations, no corneal reflex or response to painful stimuli. Pupils fixed and dilated. Preliminary Cause of : Cardiac arrest Yasir Hargrove MD Jun 05, 2017 18:39
--- NOTE | 2017-06-05 18:39 | DEATH SUM ---
- Code 99 Date Pronounced : Jun 05, 2017 Time Of : 18:24 Code 99 Responded to code 99, ACLS protocol was followed. Preliminary Cause of : Cardiac arrest Yasir Hargrove MD Jun 05, 2017 18:39
== END 2017-06-05 18:24 | disposition expired | DRG 4 ==
LOC: NEPE 21:14 → NEDA 23:37 → HIMN 05-07 03:45
PROVIDERS: ADMIT Hospitalist; ATTEND Hospitalist
PROC: 5A1955Z Respiratory Ventilation, Greater than 96 Consecutive Hours (ICD-10-PCS; principal; 2017-05-06)
PROC: 0T9B70Z Drainage of Bladder with Drainage Device, Via Natural or Artificial Opening (ICD-10-PCS; 2017-05-06)
PROC: 0BH17EZ Insertion of Endotracheal Airway into Trachea, Via Natural or Artificial Opening (ICD-10-PCS; 2017-05-06)
PROC: 0D9670Z Drainage of Stomach with Drainage Device, Via Natural or Artificial Opening (ICD-10-PCS; 2017-05-06)
PROC: 6A4Z0ZZ Hypothermia, Single (ICD-10-PCS; 2017-05-07)
PROC: 06HM33Z Insertion of Infusion Device into Right Femoral Vein, Percutaneous Approach (ICD-10-PCS; 2017-05-07)
PROC: 5A2204Z Restoration of Cardiac Rhythm, Single (ICD-10-PCS; 2017-05-10)
PROC: 0B113F4 Bypass Trachea to Cutaneous with Tracheostomy Device, Percutaneous Approach (ICD-10-PCS; 2017-05-20)
PROC: 0BC78ZZ Extirpation of Matter from Left Main Bronchus, Via Natural or Artificial Opening Endoscopic (ICD-10-PCS; 2017-05-20)
PROC: 0BC38ZZ Extirpation of Matter from Right Main Bronchus, Via Natural or Artificial Opening Endoscopic (ICD-10-PCS; 2017-05-20)
PROC: 0DJ08ZZ Inspection of Upper Intestinal Tract, Via Natural or Artificial Opening Endoscopic (ICD-10-PCS; 2017-05-23)
PROC: 0DHA3UZ Insertion of Feeding Device into Jejunum, Percutaneous Approach (ICD-10-PCS; 2017-05-25)
DX: J96.02 Acute respiratory failure with hypercapnia (principal); I46.9 Cardiac arrest, cause unspecified; K72.00 Acute and subacute hepatic failure without coma; N17.0 Acute kidney failure with tubular necrosis; R57.0 Cardiogenic shock; A41.9 Sepsis, unspecified organism; G93.1 Anoxic brain damage, not elsewhere classified; N18.3 Chronic kidney disease, stage 3 (moderate); B37.49 Other urogenital candidiasis; I42.9 Cardiomyopathy, unspecified; I50.22 Chronic systolic (congestive) heart failure; I13.0 Hypertensive heart and chronic kidney disease with heart failure and stage 1 through stage 4 chronic kidney disease, or unspecified chronic kidney disease; E87.2 Acidosis; J98.11 Atelectasis; E87.1 Hypo-osmolality and hyponatremia; I67.82 Cerebral ischemia; E87.0 Hyperosmolality and hypernatremia; R13.10 Dysphagia, unspecified; I48.0 Paroxysmal atrial fibrillation; G62.9 Polyneuropathy, unspecified; E88.09 Other disorders of plasma-protein metabolism, not elsewhere classified; J96.01 Acute respiratory failure with hypoxia; E83.42 Hypomagnesemia; E83.39 Other disorders of phosphorus metabolism; H05.20 Unspecified exophthalmos; J44.9 Chronic obstructive pulmonary disease, unspecified; E11.22 Type 2 diabetes mellitus with diabetic chronic kidney disease; F31.9 Bipolar disorder, unspecified; E11.65 Type 2 diabetes mellitus with hyperglycemia; F41.9 Anxiety disorder, unspecified; E78.00 Pure hypercholesterolemia, unspecified; K21.9 Gastro-esophageal reflux disease without esophagitis; F20.9 Schizophrenia, unspecified; F17.210 Nicotine dependence, cigarettes, uncomplicated; Z78.1 Physical restraint status; G40.909 Epilepsy, unspecified, not intractable, without status epilepticus; J30.9 Allergic rhinitis, unspecified; I25.10 Atherosclerotic heart disease of native coronary artery without angina pectoris; E66.09 Other obesity due to excess calories; R74.0 Nonspecific elevation of levels of transaminase and lactic acid dehydrogenase [LDH]; I34.0 Nonrheumatic mitral (valve) insufficiency; G89.29 Other chronic pain; M54.9 Dorsalgia, unspecified; Z51.5 Encounter for palliative care; Z79.4 Long term (current) use of insulin; Z66 Do not resuscitate; Z98.51 Tubal ligation status; E66.01 Morbid (severe) obesity due to excess calories; R00.0 Tachycardia, unspecified; I27.20 Pulmonary hypertension, unspecified; I49.3 Ventricular premature depolarization
CPT/HCPCS: 31500; 36556; 36600; 43753; 49440; 51702; 70450; 71010; 71275; 76700; 76937; 80048; 80053; 80069; 80074; 80076; 80162; 80164; 80202; 80307; 81001; 82140; 82550; 82552; 82805; 82948; 83605; 83735; 83880; 84100; 84295; 84439; 84443; 84481; 84484; 85007; 85025; 85027; 85610; 85730; 86850; 86900; 86901; 87040; 87070; 87086; 87186; 87205; 87641; 92950; 92960; 93005; 93306; 94002; 94003; 94640; 95819; 96365; 96375; 99152; 99153; A7521; C1769; J0171; J0360; J0690; J0696; J1160; J1610; J1644; J1815; J1817; J1940; J1953; J2250; J2370; J2543; J2597; J3010; J3370; J3475; J3480; J7030; J7040; J7050; J7613; Q9967